=== PATIENT | male | born 1990 | race Caucasian/White ===

== ENCOUNTER 2016-03-26 17:23 | Emergency (ER) | payer OTHER ==
[2016-03-26 17:35] VITALS: TEMP 98.4
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
[2016-03-26 19:04] VITALS: BP 118/59; PULSE 79; RESP 16
--- NOTE | 2016-03-29 09:35 | CDI ---
Per documentation of applied ulnar gutter splint, could you specify whether short or long splint? Thank you Ilana GALVIN
--- NOTE | 2016-04-13 09:36 | CDI ---
First query signed but no addendum applied. Per documentation of applied ulnar gutter splint, could you specify whether short or long splint? Thank you Ilana GALVIN
== END 2016-03-26 19:04 | disposition home or self-care (01) ==
LOC: EC 17:23
DX: S61.211A Laceration without foreign body of left index finger without damage to nail, initial encounter (principal); S66.821A Laceration of other specified muscles, fascia and tendons at wrist and hand level, right hand, initial encounter; J45.909 Unspecified asthma, uncomplicated; F17.200 Nicotine dependence, unspecified, uncomplicated; W25.XXXA Contact with sharp glass, initial encounter; Z88.2 Allergy status to sulfonamides; Z79.51 Long term (current) use of inhaled steroids; Z86.14 Personal history of Methicillin resistant Staphylococcus aureus infection
CPT/HCPCS: 12002; 29125; 99283

== ENCOUNTER 2018-01-21 01:37 | Emergency (ER) | payer OTHER ==
[2018-01-21 01:45] VITALS: BP 125/82; PULSE 85; RESP 18; TEMP 97.6
[2018-01-21] MEDS ORDERED: ORPHENADRINE 30 MG/ML 2 ML VIAL IM STA (01:57)
[2018-01-21] MEDS ORDERED: KETOROLAC 60 MG/2 ML VIAL IM STA (01:57)
--- NOTE | 2018-01-21 02:01 | ED ---
Back Pain HPI - General Chief Complaint: Back Pain/Injury Stated Complaint: Back and leg pain Time Seen by Provider: 01/21/18 01:47 Source: patient, RN notes reviewed Limitations: no limitations - History of Present Illness Initial Comments: This is a 27-year-old male presents emergency Department chief complaint low back pain. Patient states has been bothersome or last 3 days. It is worse with movement better at rest. Patient states she's had on-and-off back comes in the past he stems from falling on a branch when he was younger. Patient states she's had no bowel incontinence or bladder retention. Patient denies any saddle anesthesias or lower extremity paresthesias. He does have some pain that occasionally radiates down his legs he states primarily his left. Patient has no complaints of abdominal pain including nausea, vomiting, diarrhea constipation. Patient states he did take some Tylenol and use some icy hot which helped his symptoms. Patient denies any dysuria or hematuria. - Related Data Home Medications Medication Instructions Recorded Confirmed Albuterol Nebulized [Ventolin 2.5 mg INHALATION RT-Q6H PRN 03/26/16 03/26/16 Nebulized] Alfvqul-Jnoe-Zyxm [id number] 2 tab PO Q6HR PRN 03/26/16 03/26/16 [Excedrin] Budesonide-Formot 160-4.5 Mcg 2 puff INHALATION RT-BID 03/26/16 03/26/16 [Symbicort 160-4.5 Mcg Inhaler] Cholecalciferol [Vitamin D3] 1,000 unit PO DAILY 03/26/16 03/26/16 Ibuprofen [Advil] 200 mg PO Q8HR PRN 03/26/16 03/26/16 Previous Rx's Medication Instructions Recorded Cephalexin [Keflex] 500 mg PO Q6HR #40 cap 03/26/16 Cyclobenzaprine [Flexeril] 10 mg PO TID PRN #15 tab 01/21/18 Ibuprofen [Motrin] 600 mg PO Q8HR PRN #30 tab 01/21/18 Allergies Allergy/AdvReac Type Severity Reaction Status Date / Time Sulfa (Sulfonamide Allergy Swelling Verified 01/21/18 01:45 Antibiotics) sulfamethoxazole Allergy Swelling Verified 01/21/18 01:45 [From Bactrim] trimethoprim [From Bactrim] Allergy Swelling Verified 01/21/18 01:45 Review of Systems ROS Statement: Those systems with pertinent positive or pertinent negative responses have been documented in the HPI. ROS Other: All systems not noted in ROS Statement are negative. Past Medical History Past Medical History: Asthma Additional Past Medical History / Comment(s): PTSD, chronic migraines History of Any Multi-Drug Resistant Organisms: MRSA Date of last positivie culture/infection: 2005 MDRO Source:: leg Additional Past Surgical History / Comment(s): forehead reconstruction for head lac as child Past Psychological History: Bipolar, Schizoaffective Disorder Smoking Status: Former smoker Past Alcohol Use History: None Reported Past Drug Use History: None Reported General Exam Limitations: no limitations General appearance: alert, in no apparent distress Head exam: Present: atraumatic, normocephalic, normal inspection Respiratory exam: Present: normal lung sounds bilaterally. Absent: respiratory distress, wheezes, rales, rhonchi, stridor Cardiovascular Exam: Present: regular rate, normal rhythm, normal heart sounds. Absent: systolic murmur, diastolic murmur, rubs, gallop, clicks GI/Abdominal exam: Present: soft, normal bowel sounds. Absent: distended, tenderness, guarding, rebound, rigid Extremities exam: Present: other (Lower extremity strength equal bilaterally, neurovascular intact equal color equal warmth) Back exam: Present: normal inspection, full ROM (Minimal discomfort with range of motion), tenderness (Lower lumbar left), muscle spasm, paraspinal tenderness , other (Pain with left Leg raise). Absent: vertebral tenderness Neurological exam: Present: alert, oriented X3, CN II-XII intact, reflexes normal. Absent: motor sensory deficit Skin exam: Present: warm, dry, intact, normal color. Absent: rash Course Vital Signs 01/21/18 01:41 Temperature 97.6 F Pulse Rate 85 Respiratory 18 Rate Blood Pressure 125/82 O2 Sat by Pulse 99 Oximetry Medical Decision Making - Medical Decision Making 27-year-old male presented for low back pain. Patient has had a history of back pain which she's been similar. Patient did have relief with over-the- counter medications. He does have some notable paraspinal muscular tenderness. Patient has no red flag symptoms patient will be treated conservatively with anti-inflammatories, muscle relaxers daily stretching.. Patient will follow-up with PCP for possible physical therapy if no improvement. Disposition Clinical Impression: Strain of lumbar region, Lumbar radiculopathy Disposition: HOME SELF-CARE Condition: Stable Instructions: Acute Low Back Pain (ED) Additional Instructions: Please return to the Emergency Department if symptoms worsen or any other concerns. Prescriptions: Cyclobenzaprine [Flexeril] 10 mg PO TID PRN #15 tab PRN Reason: Muscle Spasm Ibuprofen [Motrin] 600 mg PO Q8HR PRN #30 tab PRN Reason: Pain Is patient prescribed a controlled substance at d/c from ED?: No Referrals: Joanna Jones MD [Primary Care Provider] - 1-2 days Time of Disposition: 02:00
== END 2018-01-21 02:27 | disposition home or self-care (01) ==
LOC: EC 01:37
DX: S39.012A Strain of muscle, fascia and tendon of lower back, initial encounter (principal); M54.16 Radiculopathy, lumbar region; J45.909 Unspecified asthma, uncomplicated; Z87.891 Personal history of nicotine dependence; Z88.2 Allergy status to sulfonamides; Z79.51 Long term (current) use of inhaled steroids; Z79.899 Other long term (current) drug therapy; Z86.14 Personal history of Methicillin resistant Staphylococcus aureus infection; X58.XXXA Exposure to other specified factors, initial encounter
CPT/HCPCS: 99283; 96372 ×2; J2360; J1885

== ENCOUNTER 2018-01-28 17:45 | Emergency (ER) | payer OTHER ==
[2018-01-28] MEDS ORDERED: KETOROLAC 30 MG/ML 1 ML VIAL IM STA (18:27)
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
[2018-01-28 20:04] VITALS: PULSE 85
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
[2018-01-28 21:37] VITALS: BP 138/84; RESP 15; TEMP 98.2
== END 2018-01-28 21:57 | disposition home or self-care (01) ==
LOC: EC 17:45
DX: S16.1XXA Strain of muscle, fascia and tendon at neck level, initial encounter (principal); S39.012A Strain of muscle, fascia and tendon of lower back, initial encounter; R42 Dizziness and giddiness; J45.909 Unspecified asthma, uncomplicated; F25.9 Schizoaffective disorder, unspecified; F43.10 Post-traumatic stress disorder, unspecified; F31.9 Bipolar disorder, unspecified; Z87.891 Personal history of nicotine dependence; Z79.51 Long term (current) use of inhaled steroids; Z79.899 Other long term (current) drug therapy; Z88.2 Allergy status to sulfonamides; V43.52XA Car driver injured in collision with other type car in traffic accident, initial encounter; Y92.410 Unspecified street and highway as the place of occurrence of the external cause
CPT/HCPCS: 72072; 72050; 72110; 72125; 99284; 96372; J1885

== ENCOUNTER 2018-02-03 11:41 | Emergency (ER) | payer OTHER ==
[2018-02-03 11:50] VITALS: BP 110/71; PULSE 89; RESP 18
--- NOTE | 2018-02-03 12:08 | XR ---
EXAMINATION TYPE: XR chest 2V DATE OF EXAM: 02/03/2018 COMPARISON: NONE HISTORY: Cough and congestion for 3 days TECHNIQUE: Frontal and lateral views of the chest are obtained. FINDINGS: There is no focal air space opacity, pleural effusion, or pneumothorax seen. The cardiac silhouette size is within normal limits. The osseous structures are intact. IMPRESSION: No acute cardiopulmonary process.
--- NOTE | 2018-02-03 12:10 | ED ---
General Adult HPI - General Chief complaint: Upper Respiratory Infection Stated complaint: Chest congestion Time Seen by Provider: 02/03/18 11:52 Source: patient, RN notes reviewed Mode of arrival: ambulatory Limitations: no limitations - History of Present Illness Initial comments: Patient 27-year-old male presents to the emergency room today with chief complaint of cough congestion over the last 2 days. Patient does admit that the cough has been dry. He does admit that he's had some sinus congestion. Patient does admit to a sore throat. States hurts when he swallows. He denies any other complaints at this time. - Related Data Home Medications Medication Instructions Recorded Confirmed Budesonide-Formot 160-4.5 Mcg 2 puff INHALATION RT-BID 03/26/16 02/03/18 [Symbicort 160-4.5 Mcg Inhaler] Cholecalciferol [Vitamin D3] 1,000 unit PO DAILY 03/26/16 02/03/18 ARIPiprazole [Abilify] 10 mg PO HS 01/28/18 02/03/18 Albuterol Inhaler [Ventolin Hfa 2 puff INHALATION RT-Q6H PRN 01/28/18 02/03/18 Inhaler] Loratadine [Claritin] 10 mg PO DAILY PRN 01/28/18 02/03/18 Montelukast [Singulair] 10 mg PO HS 01/28/18 02/03/18 Previous Rx's Medication Instructions Recorded Fluticasone Propionate [Flonase 1 - 2 spray EA NOSTRIL DAILY 5 02/03/18 Allergy Relief] Days ml guaiFENesin 400 mg PO Q4-6H #30 tablet 02/03/18 Allergies Allergy/AdvReac Type Severity Reaction Status Date / Time Sulfa (Sulfonamide Allergy Swelling Verified 02/03/18 12:04 Antibiotics) sulfamethoxazole Allergy Swelling Verified 02/03/18 12:04 [From Bactrim] trimethoprim [From Bactrim] Allergy Swelling Verified 02/03/18 12:04 Review of Systems ROS Statement: Those systems with pertinent positive or pertinent negative responses have been documented in the HPI. ROS Other: All systems not noted in ROS Statement are negative. Past Medical History Past Medical History: Asthma Additional Past Medical History / Comment(s): PTSD, chronic migraines History of Any Multi-Drug Resistant Organisms: MRSA Date of last positivie culture/infection: 2005 MDRO Source:: leg Additional Past Surgical History / Comment(s): forehead reconstruction for head lac as child Past Psychological History: Bipolar, Schizoaffective Disorder Smoking Status: Former smoker Past Alcohol Use History: None Reported Past Drug Use History: None Reported General Exam - General Exam Comments Initial Comments: General: The patient is awake and alert, in no distress, and does not appear acutely ill. Eye: There is normal conjunctiva bilaterally. No signs of icterus. Ears, nose, mouth and throat: There are moist mucous membranes and no oral lesions. Neck: The neck is supple, there is no tenderness or JVD. Cardiovascular: There is a regular rate and rhythm. No murmur, rub or gallop is appreciated. Respiratory: Lungs are clear to auscultation, respirations are non-labored, breath sounds are equal. No wheezes, stridor, rales, or rhonchi. Musculoskeletal: Normal ROM, no tenderness. Strength 5/5. Sensation intact. Pulses equal bilaterally 2+. Neurological: A&O x 3. CN II-XII intact, There are no obvious motor or sensory deficits. Coordination appears grossly intact. Speech is normal. Skin: Skin is warm and dry and no rashes or lesions are noted. Psychiatric: Cooperative, appropriate mood & affect, normal judgment. Limitations: no limitations Course Vital Signs 02/03/18 11:47 Temperature 98.6 F Pulse Rate 89 Respiratory 18 Rate Blood Pressure 110/71 O2 Sat by Pulse 95 Oximetry Medical Decision Making - Medical Decision Making Chest x-ray reviewed negative for any acute abnormality. Results were discussed with the patient. Patient will be treated for upper respiratory infection started on Flonase for nasal congestion along with guaifenesin for his cough. Patient advised follow-up family doctor over the next 2 days return here if symptoms increase or worsen or for any other concerns. Disposition Clinical Impression: Upper respiratory infection Disposition: HOME SELF-CARE Condition: Good Instructions: Upper Respiratory Infection (ED) Additional Instructions: Please use medication as discussed. Please follow-up with family doctor in the next 2 days of symptoms have not improved. Please return to emergency room if the symptoms increase or worsen or for any other concerns. Prescriptions: Fluticasone Propionate [Flonase Allergy Relief] 1 - 2 spray EA NOSTRIL DAILY 5 Days ml guaiFENesin 400 mg PO Q4-6H #30 tablet Is patient prescribed a controlled substance at d/c from ED?: No Referrals: Joanna Jones MD [Primary Care Provider] - 1-2 days Time of Disposition: 13:11
[2018-02-03 13:45] VITALS: TEMP 98.5
== END 2018-02-03 13:45 | disposition home or self-care (01) ==
LOC: EC 11:41
DX: J06.9 Acute upper respiratory infection, unspecified (principal); J45.909 Unspecified asthma, uncomplicated; F25.9 Schizoaffective disorder, unspecified; F31.9 Bipolar disorder, unspecified; Z86.14 Personal history of Methicillin resistant Staphylococcus aureus infection; Z87.891 Personal history of nicotine dependence; Z79.51 Long term (current) use of inhaled steroids; Z79.899 Other long term (current) drug therapy; Z88.2 Allergy status to sulfonamides
CPT/HCPCS: 71046; 99283

== ENCOUNTER → 2018-02-03 | Outpatient (CLI) | payer OTHER ==
--- NOTE | 2018-02-03 11:59 | US ---
EXAMINATION TYPE: US liver DATE OF EXAM: 02/03/2018 COMPARISON: NONE CLINICAL HISTORY: R94.5 elevated liver test. larger habitus EXAM MEASUREMENTS: Liver Length: 21.8 cm Gallbladder Wall: 0.1 cm CBD: 0.5 cm Right Kidney: 12.5 x 4.0 x 6.2 cm Pancreas: tail gassed out, visualized portion wnl Liver: hepatomegaly, attenuating, coarse echopattern, probable sparing around gb Gallbladder: wnl Evidence for sonographic Ewing's sign: no CBD: wnl Right Kidney: wnl IMPRESSION: Findings suggesting moderate degree hepatic steatosis with probable focal fatty sparing a round the gallbladder fossa. No sonographic evidence of cholelithiasis or acute cholecystitis.
== END ==
LOC: RADUSWWP 11:20
PROVIDERS: ATTEND Internal Medicine
DX: R94.5 Abnormal results of liver function studies (principal); Z88.2 Allergy status to sulfonamides; Z88.8 Allergy status to other drugs, medicaments and biological substances
CPT/HCPCS: 76705

== ENCOUNTER 2018-02-13 18:11 | Emergency (ER) | payer OTHER ==
--- NOTE | 2018-02-13 19:30 | ED ---
General Adult HPI - General Chief complaint: Extremity Injury, Lower Stated complaint: RT FOOT INJURY Source: patient, RN notes reviewed, old records reviewed Mode of arrival: ambulatory Limitations: no limitations - History of Present Illness Initial comments: 19-year-old male patient sent to ED after sustaining an injury to his right foot yesterday. Patient states that he was carrying a box ED when slipped, landed on his foot. Patient is still ambulatory, has some pain in the lateral aspect of his foot with ambulation. Patient denies any other injury sustained. Patient presents today to make sure he does not have any acute fracture. Patient denies numbness/paresthesias. Systemic: Pt denies fatigue, myalgia, fever/chills, rash. Pt denies weakness, night sweats, weight loss. Neuro: Pt denies headache, visual disturbances, syncope or pre-syncope. HEENT: Pt denies ocular discharge or irritation, otalgia, rhinorrhea, pharyngitis or notable lymphadenopathy. Cardiopulmonary: Pt denies chest pain, SOB, heart palpitations, dyspnea on exertion. Abdominal/GI: Pt denies abdominal pain, n/v/d. : Pt denies dysuria, burning w/ urination, frequency/urgency. Denies new onset urinary or bowel incontinence. MSK: Pt denies myalgia, loss of strength or function in extremities. Neuro: Pt denies new onset weakness, paresthesias. - Related Data Home Medications Medication Instructions Recorded Confirmed Budesonide-Formot 160-4.5 Mcg 2 puff INHALATION RT-BID 03/26/16 02/03/18 [Symbicort 160-4.5 Mcg Inhaler] Cholecalciferol [Vitamin D3] 1,000 unit PO DAILY 03/26/16 02/03/18 ARIPiprazole [Abilify] 10 mg PO HS 01/28/18 02/03/18 Albuterol Inhaler [Ventolin Hfa 2 puff INHALATION RT-Q6H PRN 01/28/18 02/03/18 Inhaler] Loratadine [Claritin] 10 mg PO DAILY PRN 01/28/18 02/03/18 Montelukast [Singulair] 10 mg PO HS 01/28/18 02/03/18 Previous Rx's Medication Instructions Recorded Fluticasone Propionate [Flonase 1 - 2 spray EA NOSTRIL DAILY 5 02/03/18 Allergy Relief] Days ml guaiFENesin 400 mg PO Q4-6H #30 tablet 02/03/18 Ibuprofen [Motrin] 600 mg PO Q6HR PRN #40 day 02/13/18 Allergies Allergy/AdvReac Type Severity Reaction Status Date / Time Sulfa (Sulfonamide Allergy Swelling Verified 02/13/18 18:16 Antibiotics) sulfamethoxazole Allergy Swelling Verified 02/13/18 18:16 [From Bactrim] trimethoprim [From Bactrim] Allergy Swelling Verified 02/13/18 18:16 Review of Systems ROS Statement: Those systems with pertinent positive or pertinent negative responses have been documented in the HPI. ROS Other: All systems not noted in ROS Statement are negative. Past Medical History Past Medical History: Asthma Additional Past Medical History / Comment(s): PTSD, chronic migraines History of Any Multi-Drug Resistant Organisms: MRSA Date of last positivie culture/infection: 2005 MDRO Source:: leg Additional Past Surgical History / Comment(s): forehead reconstruction for head lac as child Past Psychological History: Bipolar, Schizoaffective Disorder Smoking Status: Former smoker Past Alcohol Use History: None Reported Past Drug Use History: None Reported General Exam - General Exam Comments Initial Comments: Constitutional: NAD, AOX3, Pt has pleasant affect. HEENT: NC/AT, trachea midline, neck supple, no lymphadenopathy. Posterior pharynx non erythematous, without exudates. External ears appear normal, without discharge. Mucous membranes moist. Eyes PERRLA, EOM intact. There is no scleral icterus. No pallor noted. Cardiopulmonary: RRR, no murmurs, rubs or gallops, no JVD noted. Lungs CTAB in anterior and posterior [place]. No peripheral edema. Abdominal exam: Abdomen soft and non-distended. Abdomen non-tender to palpation in all 4 quadrants. Bowel sounds active in LLQ. No hepatosplenomegaly. Neuro: CN II-XII grossly intact. No nuchal rigidity. MSK: No posterior calf tenderness bilaterally, homans sign negative bilaterally. Posterior tibialis and radial pulse +2 bilaterally. Moderate tenderness palpation at lateral aspect of right midfoot. Plantar and dorsi flexion intact. Neurovascularly intact. Capillary refill less than 2 seconds on all nailbeds. She laboratory. Limitations: no limitations Course Vital Signs 02/13/18 18:14 Temperature 98.2 F Pulse Rate 85 Respiratory 16 Rate Blood Pressure 133/90 O2 Sat by Pulse 97 Oximetry Medical Decision Making - Medical Decision Making 19-year-old male patient presents to ED after sustaining was physical injury to his right foot. Patient after he got his foot. Patient ambulatory. Physical exam displayed no ecchymoses, mild tenderness to palpation right foot. Plain films of right foot ankle didn't display any acute osseous abnormality, acute process. Patient diagnosis contusion. Patient discharged with postop walking boot. Patient developed PCP in 1-2 days. She may use NSAIDs as needed for pain. Patient given or the referral to call pain last more than 10 days. Patient to return to ED if any new signs or symptoms develop including inability ambulate, erythema, discharge, weakness, any other new symptoms. Case discussed with Dr. Covarrubias. Disposition Clinical Impression: Contusion of foot Disposition: HOME SELF-CARE Condition: Good Instructions: Foot Contusion (ED) Additional Instructions: Patient to adhere to previously discussed treatment plan and will take medication(s) as directed. Patient to follow up with PCP in 1-2 days. Patient to return to ED if symptoms do not improve. Prescriptions: Ibuprofen [Motrin] 600 mg PO Q6HR PRN #40 day PRN Reason: Pain Is patient prescribed a controlled substance at d/c from ED?: No Referrals: Joanna Jones MD [Primary Care Provider] - 1-2 days Reji Pope MD [Medical Doctor] - 1-2 days Time of Disposition: 20:12
--- NOTE | 2018-02-13 19:38 | XR ---
PROCEDURE: XR ankle complete RT - 3V DATE AND TIME: 02/13/2018 6:47 PM CLINICAL INDICATION: PHH; Pain TECHNIQUE: Department protocol COMPARISON: None FINDINGS: There is no fracture or malalignment. The soft tissues are unremarkable. IMPRESSION: NO ACUTE PROCESS.
--- NOTE | 2018-02-13 19:40 | XR ---
PROCEDURE: XR foot complete RT - 3V DATE AND TIME: 02/13/2018 6:48 PM CLINICAL INDICATION: PHH; Pain TECHNIQUE: Department protocol COMPARISON: None FINDINGS: There is no fracture or malalignment. The soft tissues are unremarkable. IMPRESSION: NO ACUTE PROCESS.
[2018-02-13 20:22] VITALS: BP 143/82; PULSE 82; RESP 18; TEMP 98
== END 2018-02-13 20:22 | disposition home or self-care (01) ==
LOC: EC 18:11
DX: S90.31XA Contusion of right foot, initial encounter (principal); J45.909 Unspecified asthma, uncomplicated; F25.9 Schizoaffective disorder, unspecified; F31.9 Bipolar disorder, unspecified; F43.10 Post-traumatic stress disorder, unspecified; Z86.14 Personal history of Methicillin resistant Staphylococcus aureus infection; Z87.891 Personal history of nicotine dependence; Z79.51 Long term (current) use of inhaled steroids; Z79.899 Other long term (current) drug therapy; Z88.2 Allergy status to sulfonamides; W20.8XXA Other cause of strike by thrown, projected or falling object, initial encounter
CPT/HCPCS: 99284

== ENCOUNTER 2018-02-20 02:28 | Emergency (ER) | payer OTHER ==
[2018-02-20] MEDS ORDERED: IPRATROPIUM-ALBUTEROL 3 ML NEB INHALATION STA (02:59)
--- NOTE | 2018-02-20 02:59 | ED ---
URI HPI - General Chief Complaint: Upper Respiratory Infection Stated Complaint: CONSTANZA Time Seen by Provider: 02/20/18 02:59 Source: patient Mode of arrival: wheelchair Limitations: no limitations - History of Present Illness Initial Comments: Arturo is a 28-year-old male with a history of asthma and a former cigarette smoker presents the emergency department today for evaluation of persistent cough for 2 weeks duration. Patient was seen by his primary care physician and prescribed an antibiotic which he reports he took with no improvement. Patient reports he continues to feel wheezing and coughing. He reports that he used his albuterol inhaler one time today. Patient reports he previously had albuterol nebulizer at home however he has lost the machine and has no albuterol. The patient denies any additional complaints. - Related Data Home Medications Medication Instructions Recorded Confirmed Budesonide-Formot 160-4.5 Mcg 2 puff INHALATION RT-BID 03/26/16 02/20/18 [Symbicort 160-4.5 Mcg Inhaler] Cholecalciferol [Vitamin D3] 1,000 unit PO DAILY 03/26/16 02/20/18 ARIPiprazole [Abilify] 10 mg PO HS 01/28/18 02/20/18 Albuterol Inhaler [Ventolin Hfa 2 puff INHALATION RT-Q6H PRN 01/28/18 02/20/18 Inhaler] Loratadine [Claritin] 10 mg PO DAILY PRN 01/28/18 02/20/18 Montelukast [Singulair] 10 mg PO HS 01/28/18 02/20/18 Previous Rx's Medication Instructions Recorded guaiFENesin 400 mg PO Q4-6H #30 tablet 02/03/18 Ibuprofen [Motrin] 600 mg PO Q6HR PRN #40 day 02/13/18 Allergies Allergy/AdvReac Type Severity Reaction Status Date / Time Sulfa (Sulfonamide Allergy Swelling Verified 02/20/18 02:39 Antibiotics) sulfamethoxazole Allergy Swelling Verified 02/20/18 02:39 [From Bactrim] trimethoprim [From Bactrim] Allergy Swelling Verified 02/20/18 02:39 Review of Systems ROS Statement: Those systems with pertinent positive or pertinent negative responses have been documented in the HPI. ROS Other: All systems not noted in ROS Statement are negative. Past Medical History Past Medical History: Asthma Additional Past Medical History / Comment(s): PTSD, chronic migraines History of Any Multi-Drug Resistant Organisms: MRSA Date of last positivie culture/infection: 2005 MDRO Source:: leg Additional Past Surgical History / Comment(s): forehead reconstruction for head lac as child Past Psychological History: Bipolar, Schizoaffective Disorder Smoking Status: Former smoker Past Alcohol Use History: Occasional Past Drug Use History: None Reported General Exam - General Exam Comments Initial Comments: Physical Exam GENERAL: Patient is well-developed and well-nourished. Patient is nontoxic and well- hydrated and is in no distress. HENT: Normocephalic, Atraumatic. EYES: PERRL, EOMI PULMONARY: Coarse wheezing, nonproductive cough CARDIOVASCULAR: There is a regular rate and rhythm without any murmurs gallops or rubs. ABDOMEN: Soft and nontender with normal bowel sounds. SKIN: Skin is clear with no lesions or rashes and otherwise unremarkable. : Deferred NEUROLOGIC: Patient is alert and oriented x3. Moving all extremities spontaneously MUSCULOSKELETAL: Normal extremities with adequate strength and full range of motion. No lower extremity swelling or edema. No calf tenderness. PSYCHIATRIC: Normal psychiatric evaluation. Limitations: no limitations Limitations: no limitations Course Vital Signs 02/20/18 02/20/18 02/20/18 02:35 03:17 03:23 Temperature 97.4 F L Pulse Rate 100 100 Respiratory 20 17 Rate Blood Pressure 129/83 O2 Sat by Pulse 98 Oximetry 02/20/18 03:29 Temperature Pulse Rate 104 H Respiratory Rate Blood Pressure O2 Sat by Pulse Oximetry Medical Decision Making - Medical Decision Making The patient was seen and evaluated, patient had a hoarse cough, mild expiratory wheezing DuoNeb and chest x-ray were ordered Patient's wheezing resolved with DuoNeb, patient reports feeling much better Chest x-ray no acute findings I discussed with the patient the need to follow up with his primary care physician for new prescription for nebulizer, patient states he intends to call his primary care physician in the morning for follow-up visit. In addition the patient has only been using his inhaler 1-2 times daily, advised him he can use it every 4 hours as needed for wheezing. Return parameters were discussed. All questions pertaining care were answered patient was discharged home in stable condition. Disposition Clinical Impression: Upper respiratory infection Disposition: HOME SELF-CARE Condition: Good Instructions: Upper Respiratory Infection (ED) Additional Instructions: Follow-up with Dr. Bettencourt tomorrow, discuss the need for a prescription for a nebulizer and nebulized albuterol at home Use your inhaler every 4 hours as needed for coughing Is patient prescribed a controlled substance at d/c from ED?: No Referrals: Joanna Jones MD [Primary Care Provider] - 1-2 days Time of Disposition: 03:41
--- NOTE | 2018-02-20 03:23 | XR ---
EXAMINATION TYPE: XR chest 2V DATE OF EXAM: 02/20/2018 COMPARISON: 02/03/2018 HISTORY: Chest pain TECHNIQUE: Frontal and lateral views of the chest are obtained. FINDINGS: Heart and mediastinum are normal. Lungs are clear. Diaphragm is normal. Bony thorax appear s normal. IMPRESSION: Normal chest. No change.
[2018-02-20 03:57] VITALS: BP 122/78; PULSE 95; RESP 18; TEMP 98.2
== END 2018-02-20 04:01 | disposition home or self-care (01) ==
LOC: EC 02:28
DX: J06.9 Acute upper respiratory infection, unspecified (principal); J45.909 Unspecified asthma, uncomplicated; F25.0 Schizoaffective disorder, bipolar type; Z86.14 Personal history of Methicillin resistant Staphylococcus aureus infection; Z87.891 Personal history of nicotine dependence; Z79.51 Long term (current) use of inhaled steroids; Z79.899 Other long term (current) drug therapy; Z88.2 Allergy status to sulfonamides
CPT/HCPCS: 71046; 94640; 99285

== ENCOUNTER 2018-03-03 01:52 | Emergency (ER) | payer OTHER ==
--- NOTE | 2018-03-03 03:14 | ED ---
Lower Extremity Injury HPI - General Chief Complaint: Extremity Injury, Lower Stated Complaint: Car fell on him Time Seen by Provider: 03/03/18 02:54 Source: patient Mode of arrival: ambulatory Limitations: no limitations - History of Present Illness Initial Comments: This patient is 28-year-old man who presents to be evaluated after he had a right knee injury tonight. Patient states that he working on his car, and then it slipped from the [place] and in the process of falling to the ground struck his right patella. The patient is able to bear weight on his leg, but states that if he attempts to bend there is pain. He denies weakness or numbness of the extremity. The patient also states that when he attempted to turn the wheel of his car he feels like he pulled something in his left shoulder. He specifically has pain when he attempts internal rotation. MD Complaint: knee injury -: hour(s) Injury: Knee: Right Type of Injury: blunt Place: home Severity: moderate Improves With: nothing Worsens With: movement Context: direct blow Associated Symptoms: able to partially bear weight - Related Data Home Medications Medication Instructions Recorded Confirmed Budesonide-Formot 160-4.5 Mcg 2 puff INHALATION RT-BID 03/26/16 02/20/18 [Symbicort 160-4.5 Mcg Inhaler] Cholecalciferol [Vitamin D3] 1,000 unit PO DAILY 03/26/16 02/20/18 ARIPiprazole [Abilify] 10 mg PO HS 01/28/18 02/20/18 Albuterol Inhaler [Ventolin Hfa 2 puff INHALATION RT-Q6H PRN 01/28/18 02/20/18 Inhaler] Loratadine [Claritin] 10 mg PO DAILY PRN 01/28/18 02/20/18 Montelukast [Singulair] 10 mg PO HS 01/28/18 02/20/18 Previous Rx's Medication Instructions Recorded guaiFENesin 400 mg PO Q4-6H #30 tablet 02/03/18 Ibuprofen [Motrin] 600 mg PO Q6HR PRN #40 day 02/13/18 Ibuprofen 800 mg PO TID #20 tablet 03/03/18 Allergies Allergy/AdvReac Type Severity Reaction Status Date / Time Sulfa (Sulfonamide Allergy Swelling Verified 03/03/18 01:57 Antibiotics) sulfamethoxazole Allergy Swelling Verified 03/03/18 01:57 [From Bactrim] trimethoprim [From Bactrim] Allergy Swelling Verified 03/03/18 01:57 Review of Systems ROS Statement: Those systems with pertinent positive or pertinent negative responses have been documented in the HPI. ROS Other: All systems not noted in ROS Statement are negative. Respiratory: Denies: dyspnea Cardiovascular: Denies: chest pain Gastrointestinal: Denies: abdominal pain, vomiting Musculoskeletal: Reports: as per HPI, joint swelling, arthralgia. Denies: back pain Neurological: Denies: weakness, numbness, paresthesias Past Medical History Past Medical History: Asthma Additional Past Medical History / Comment(s): PTSD, chronic migraines History of Any Multi-Drug Resistant Organisms: MRSA Date of last positivie culture/infection: 2005 MDRO Source:: leg Additional Past Surgical History / Comment(s): forehead reconstruction for head lac as child Past Psychological History: Bipolar, Schizoaffective Disorder Smoking Status: Former smoker Past Alcohol Use History: Occasional Past Drug Use History: None Reported General Exam Limitations: no limitations General appearance: alert, in no apparent distress Extremities exam: Present: full ROM, tenderness (Anterior of the right patella) , normal capillary refill. Absent: pedal edema, joint swelling, calf tenderness Neurological exam: Absent: motor sensory deficit Skin exam: Present: warm, dry, intact, normal color. Absent: rash Course Vital Signs 03/03/18 01:54 Temperature 98.2 F Pulse Rate 99 Respiratory 16 Rate Blood Pressure 127/81 O2 Sat by Pulse 97 Oximetry Disposition Clinical Impression: Shoulder strain, Knee injury Disposition: HOME SELF-CARE Condition: Good Instructions: Knee Pain (ED), Rotator Cuff Injury (ED) Prescriptions: Ibuprofen 800 mg PO TID #20 tablet Is patient prescribed a controlled substance at d/c from ED?: No Referrals: Joanna Jones MD [Primary Care Provider] - 1-2 days Reji Pope MD [Medical Doctor] - 1-2 days
--- NOTE | 2018-03-03 03:29 | XR ---
EXAMINATION TYPE: XR knee complete RT DATE OF EXAM: 03/03/2018 COMPARISON: NONE HISTORY: Knee pain TECHNIQUE: 3 views FINDINGS: I see no fracture nor dislocation. Joint spaces are normal. There is no sign of knee joint effusion. IMPRESSION: Negative right knee exam.
[2018-03-03] MEDS ORDERED: traMADol 50 MG STARTER PACK 3 TAB BTL PO STA (03:59)
[2018-03-03] MEDS ORDERED: IBUPROFEN 400 MG TAB PO STA (03:59)
[2018-03-03 04:10] VITALS: BP 133/75; PULSE 77; RESP 18; TEMP 98
== END 2018-03-03 04:09 | disposition home or self-care (01) ==
LOC: EC 01:52
DX: S89.91XA Unspecified injury of right lower leg, initial encounter (principal); S46.912A Strain of unspecified muscle, fascia and tendon at shoulder and upper arm level, left arm, initial encounter; J45.909 Unspecified asthma, uncomplicated; F43.10 Post-traumatic stress disorder, unspecified; F25.0 Schizoaffective disorder, bipolar type; Z86.14 Personal history of Methicillin resistant Staphylococcus aureus infection; Z87.891 Personal history of nicotine dependence; Z79.51 Long term (current) use of inhaled steroids; Z79.899 Other long term (current) drug therapy; Z88.2 Allergy status to sulfonamides; W22.8XXA Striking against or struck by other objects, initial encounter; Y93.89 Activity, other specified; Y92.009 Unspecified place in unspecified non-institutional (private) residence as the place of occurrence of the external cause
CPT/HCPCS: 73562; 99283; L1830

== ENCOUNTER 2018-05-02 02:02 | Emergency (ER) | payer OTHER ==
[2018-05-02 02:09] VITALS: TEMP 97.7
[2018-05-02] MEDS ORDERED: HYDROcodone/APAP 7.5-325MG 1 EACH TAB PO ONE (02:27)
--- NOTE | 2018-05-02 02:42 | XR ---
EXAM: XR Chest, 2 Views CLINICAL HISTORY: Pain TECHNIQUE: Frontal and lateral views of the chest. COMPARISON: 02/20/2018 FINDINGS: Lungs: Unremarkable. No consolidation. Pleural space: Unremarkable. No pneumothorax. Heart: Unremarkable. No cardiomegaly. Mediastinum: Unremarkable. Bones/joints: No acute osseous abnormality. IMPRESSION: No acute cardiopulmonary process.
--- NOTE | 2018-05-02 02:46 | XR ---
EXAM: XR Left Shoulder Complete, 2 or More Views CLINICAL HISTORY: Pain TECHNIQUE: Two or more views of the left shoulder. COMPARISON: No relevant prior studies available. FINDINGS: Bones/joints: No acute fracture or dislocation. Soft tissues: Unremarkable. IMPRESSION: No acute fracture or dislocation.
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
[2018-05-02 03:50] VITALS: BP 120/83; PULSE 86; RESP 20
== END 2018-05-02 03:45 | disposition home or self-care (01) ==
LOC: EC 02:02
DX: S43.402A Unspecified sprain of left shoulder joint, initial encounter (principal); J45.909 Unspecified asthma, uncomplicated; F31.9 Bipolar disorder, unspecified; F43.10 Post-traumatic stress disorder, unspecified; F25.9 Schizoaffective disorder, unspecified; Z86.14 Personal history of Methicillin resistant Staphylococcus aureus infection; Z87.891 Personal history of nicotine dependence; Z79.51 Long term (current) use of inhaled steroids; Z79.899 Other long term (current) drug therapy; Z88.2 Allergy status to sulfonamides; Z88.1 Allergy status to other antibiotic agents; V19.9XXA Pedal cyclist (driver) (passenger) injured in unspecified traffic accident, initial encounter; Y93.55 Activity, bike riding; Y92.410 Unspecified street and highway as the place of occurrence of the external cause
CPT/HCPCS: 71046; 99284

== ENCOUNTER 2018-06-04 12:48 | Emergency (ER) | payer OTHER ==
[2018-06-04] MEDS ORDERED: TOPICAL SKIN ADHESIVE 1 EACH AMP TOPICAL ONE (13:35)
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
[2018-06-04 15:07] VITALS: BP 118/68; PULSE 78; RESP 18; TEMP 97.7
== END 2018-06-04 14:30 | disposition home or self-care (01) ==
LOC: EC 12:48
DX: S61.011A Laceration without foreign body of right thumb without damage to nail, initial encounter (principal); J45.909 Unspecified asthma, uncomplicated; F31.9 Bipolar disorder, unspecified; F25.9 Schizoaffective disorder, unspecified; F43.10 Post-traumatic stress disorder, unspecified; Z86.14 Personal history of Methicillin resistant Staphylococcus aureus infection; Z87.891 Personal history of nicotine dependence; Z79.51 Long term (current) use of inhaled steroids; Z79.899 Other long term (current) drug therapy; Z88.1 Allergy status to other antibiotic agents; Z88.2 Allergy status to sulfonamides; W26.0XXA Contact with knife, initial encounter
CPT/HCPCS: 12001; 99282

== ENCOUNTER 2018-06-16 01:44 | Emergency (ER) | payer OTHER ==
[2018-06-16 02:45] LABS: Appearance,Urine Clear (Clear); Bacteria,Urine Rare /hpf; Bilirubin,Urine Negative (Negative); Blood,Urine Moderate (Negative); Color,Urine Light Yellow; Glucose,Urine (UA) Negative (Negative); Ketones,Urine Negative (Negative); Leukocyte Esterase,Urine Moderate (Negative); Mucus,Urine Rare /hpf; Nitrite,Urine Negative (Negative); Protein,Urine Negative (Negative); RBC,Urine 57 /hpf (0-5); Squamous Epithelial Cell,Urine <1 /hpf (0-4); Urobilinogen,Urine <2.0 mg/dL (<2.0); WBC,Urine 24 /hpf (0-5)
[2018-06-16] MEDS ORDERED: CEPHALEXIN 500MG STARTER PACK 4 CAP BTL PO STA (02:50)
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
[2018-06-16 03:20] VITALS: BP 136/80; PULSE 88; RESP 18; TEMP 98
[2018-06-17 15:07] LABS: C. trachomatis,PCR Negative (Neg,Equiv); Chlamydia trachomatis Source Urine
[2018-06-17 15:19] LABS: N. gonorrhoeae,PCR Negative (Neg,Equiv); Neisseria Source Urine
== END 2018-06-16 03:20 | disposition home or self-care (01) ==
LOC: EC 01:44
DX: N39.0 Urinary tract infection, site not specified (principal); J45.909 Unspecified asthma, uncomplicated; F25.0 Schizoaffective disorder, bipolar type; Z79.51 Long term (current) use of inhaled steroids; Z79.899 Other long term (current) drug therapy; Z87.891 Personal history of nicotine dependence; Z88.1 Allergy status to other antibiotic agents; Z88.2 Allergy status to sulfonamides
CPT/HCPCS: 81001; 87086; 87491; 87591; 99283

== ENCOUNTER → 2018-06-24 | Outpatient (CLI) | payer OTHER ==
[2018-06-24 19:29] LABS: Albumin 4.8 g/dL (3.80-4.90); Albumin/Globulin Ratio 2.18 (1.60-3.17); Bilirubin, Conjugated 0.2 mg/dL (0.20-0.40); Bilirubin,Unconjugated 0.2 mg/dL; Globulin 2.2 g/dL (1.6-3.3); Total Bilirubin 0.4 mg/dL (0.2-1.2)
== END ==
LOC: LABWHC1 12:59
PROVIDERS: ATTEND Internal Medicine
DX: Z09 Encounter for follow-up examination after completed treatment for conditions other than malignant neoplasm (principal); Z86.39 Personal history of other endocrine, nutritional and metabolic disease
CPT/HCPCS: 36415; 80076; 82947

== ENCOUNTER → 2018-08-21 | Outpatient (CLI) | payer OTHER ==
--- NOTE | 2018-08-21 09:07 | US ---
EXAMINATION TYPE: US abdomen complete DATE OF EXAM: 08/21/2018 COMPARISON: 02/03/2018 CLINICAL HISTORY: R74.8 Abnormal levels of liver enzymes. EXAM MEASUREMENTS: Liver Length: 17.7 cm Gallbladder Wall: 0.2 cm CBD: 0.5 cm Spleen: 12.9 cm Right Kidney: 12.6 x 4.3 x 5.0 cm Left Kidney: 12.3 x 5.8 x 5.7 cm Patient of large body habitus, technically difficult and limited study. Pancreas: Obscured by bowel gas Liver: Increased attenuation, decreased visualization of vessels suggestive of fatty infiltrate, het erogeneous, upper limits of normal in size, some possible focal fatty sparing adjacent to gallbladder Gallbladder: wnl Evidence for sonographic Ewing's sign: CBD: very limited visualization Spleen: wnl Right Kidney: No hydronephrosis or masses seen Left Kidney: No hydronephrosis or masses seen Upper IVC: not well seen Abd Aorta: some portions obscured by overlying bowel gas otherwise wnl IMPRESSION: 1. Findings involving the liver demonstrating heterogeneous increased pattern which can be seen with hepatic steatosis or hepatitis.
== END | disposition home or self-care (01) ==
LOC: RADUSWWP 08:23
PROVIDERS: ATTEND Internal Medicine
DX: R74.8 Abnormal levels of other serum enzymes (principal)
CPT/HCPCS: 76700

== ENCOUNTER 2018-09-17 00:53 | Emergency (ER) | payer OTHER ==
[2018-09-17 01:16] VITALS: TEMP 98.6
[2018-09-17] MEDS ORDERED: SODIUM CHLORIDE 0.9% 500 ML 500 ML IV STA (02:08)
[2018-09-17 03:17] LABS: Basophils % (A) 1 %; Eosinophils # (A) 0.1 k/uL (0-0.7); Eosinophils % (A) 2 %; HCT 45.1 % (39.0-53.0); Lymphocytes % (A) 28 %; MCH 28.2 pg (25.0-35.0); MCHC 33.3 g/dL (31.0-37.0); MCV 84.7 fL (80.0-100.0); Mean Platelet Volume 7.5; Monocytes # (A) 0.6 k/uL (0-1.0); Monocytes % (A) 8 %; Neutrophils # (A) 4.2 k/uL (1.3-7.7); Neutrophils % (A) 59 %; Platelet Count 248 k/uL (150-450); RBC 5.32 m/uL (4.30-5.90); WBC 7.2 k/uL (3.8-10.6)
--- NOTE | 2018-09-17 03:21 | XR ---
EXAM: XR Chest, 2 Views CLINICAL HISTORY: ITS.REASON XR Reason: Chest Pain TECHNIQUE: Frontal and lateral views of the chest. COMPARISON: 05/02/18 FINDINGS: Lungs: No consolidation or mass. Pleural space: No effusion. Heart: No cardiomegaly. Mediastinum: Unremarkable. Bones/joints: No acute findings. IMPRESSION: No acute cardiopulmonary process.
[2018-09-17 03:28] LABS: ALT 66 U/L (21-72); AST 66 U/L (17-59); African American GFR (CKD) >90 (>60 ml/min/1.73 sqM); Albumin 5.1 g/dL (3.5-5.0); Alkaline Phosphatase 56 U/L (38-126); Anion Gap 13 mmol/L; Blood Urea Nitrogen 15 mg/dL (9-20); Calcium 9.6 mg/dL (8.4-10.2); Carbon Dioxide 20 mmol/L (22-30); Chloride 105 mmol/L (98-107); Glucose 100 mg/dL (74-99); Magnesium 2.1 mg/dL (1.6-2.3); Sodium 138 mmol/L (137-145); Total Protein 8.2 g/dL (6.3-8.2)
[2018-09-17 03:30] LABS: D-Dimer 0.32 mg/L FEU (<0.60); Partial Thromboplastin Time 24.6 sec (22.0-30.0); Prothrombin Time 10.4 sec (9.0-12.0)
--- NOTE | 2018-09-17 03:37 | ED ---
General Adult HPI - General Chief complaint: Chest Pain Stated complaint: Chest Pain Time Seen by Provider: 09/17/18 01:25 Source: patient, RN notes reviewed, old records reviewed Mode of arrival: ambulatory Limitations: no limitations - History of Present Illness Initial comments: 28-year-old male patient passed history of asthma presents to ED with 2 days of waxing and waning substernal chest pain radiating to his left arm and shortness of breath. Patient does report that he feels the pain when he feels very anxious. Patient administered that this may be anxiety related. Patient has had prior cardiology evaluations for similar complaints. Patient denies current pain at this time. Describes the pain as a sharp, stabbing pain. Denies any associated symptoms including diaphoresis, nausea vomiting, diarrhea. Systemic: Pt denies fatigue, fever/chills, rash. Pt denies weakness, night sweats, weight loss. Neuro: Pt denies headache, visual disturbances, syncope or pre-syncope. HEENT: Pt denies ocular discharge or irritation, otalgia, rhinorrhea, pharyngitis or notable lymphadenopathy. Cardiopulmonary: Pt denies chest pain, SOB, heart palpitations, dyspnea on exertion. Abdominal/GI: Pt denies abdominal pain, n/v/d. : Pt denies dysuria, burning w/ urination, frequency/urgency. Denies new onset urinary or bowel incontinence. MSK: Pt denies myalgia, loss of strength or function in extremities. Neuro: Pt denies new onset weakness, paresthesias. - Related Data Home Medications Medication Instructions Recorded Confirmed Budesonide-Formot 160-4.5 Mcg 2 puff INHALATION RT-BID 03/26/16 06/04/18 [Symbicort 160-4.5 Mcg Inhaler] Cholecalciferol [Vitamin D3] 1,000 unit PO DAILY 03/26/16 06/04/18 ARIPiprazole [Abilify] 10 mg PO HS 01/28/18 06/04/18 Albuterol Inhaler [Ventolin Hfa 2 puff INHALATION RT-Q6H PRN 01/28/18 06/04/18 Inhaler] Loratadine [Claritin] 10 mg PO DAILY 01/28/18 06/04/18 Montelukast [Singulair] 10 mg PO DAILY 01/28/18 06/04/18 Previous Rx's Medication Instructions Recorded Cephalexin [Keflex] 500 mg PO Q6H #28 cap 06/16/18 Allergies Allergy/AdvReac Type Severity Reaction Status Date / Time Sulfa (Sulfonamide Allergy Swelling Verified 09/17/18 01:16 Antibiotics) sulfamethoxazole Allergy Swelling Verified 09/17/18 01:16 [From Bactrim] trimethoprim [From Bactrim] Allergy Swelling Verified 09/17/18 01:16 Review of Systems ROS Statement: Those systems with pertinent positive or pertinent negative responses have been documented in the HPI. ROS Other: All systems not noted in ROS Statement are negative. Past Medical History Past Medical History: Asthma Additional Past Medical History / Comment(s): PTSD, chronic migraines History of Any Multi-Drug Resistant Organisms: MRSA Date of last positivie culture/infection: 2005 MDRO Source:: leg Additional Past Surgical History / Comment(s): forehead reconstruction for head lac as child Past Psychological History: Bipolar, PTSD, Schizoaffective Disorder Smoking Status: Former smoker Past Alcohol Use History: Occasional Past Drug Use History: None Reported General Exam - General Exam Comments Initial Comments: Constitutional: NAD, AOX3, Pt has pleasant affect. HEENT: NC/AT, trachea midline, neck supple, no lymphadenopathy. Posterior pharynx non erythematous, without exudates. External ears appear normal, without discharge. Mucous membranes moist. Eyes PERRLA, EOM intact. There is no scleral icterus. No pallor noted. Cardiopulmonary: RRR, no murmurs, rubs or gallops, no JVD noted. Lungs CTAB in anterior and posterior york. No peripheral edema. Abdominal exam: Abdomen soft and non-distended. Abdomen non-tender to palpation in all 4 quadrants. Bowel sounds active in LLQ. No hepatosplenomegaly. No ecchymosis Neuro: CN II-XII grossly intact. No nuchal rigidity. No raccon eyes, no renae sign, no hemotympanum. No cervical spinal tenderness. MSK: No posterior calf tenderness bilaterally, homans sign negative bilaterally. Posterior tibialis and radial pulse +2 bilaterally. Sensation intact in upper and lower extremities. Full active ROM in upper and lower extremities, 5/5 str egnth. Limitations: no limitations Course Vital Signs 09/17/18 01:14 Temperature 98.6 F Pulse Rate 89 Respiratory 18 Rate Blood Pressure 149/67 O2 Sat by Pulse 99 Oximetry Medical Decision Making - Medical Decision Making 28-year-old male patient passed history of asthma presents to ED with 2 days of waxing and waning substernal chest pain radiating to his left arm and shortness of breath. Patient does report that he feels the pain when he feels very anxious. Patient administered that this may be anxiety related. Patient has had prior cardiology evaluations for similar complaints. Patient denies current pain at this time. Describes the pain as a sharp, stabbing pain. Denies any associated symptoms including diaphoresis, nausea vomiting, diarrhea. Patient vital signs stable, afebrile. Physical exam did not acute pathology. CBC, CMP noncompressive. Correlation studies negative. D-dimer negative. Troponin negative, BNP 29. EKG not concerning for acute ischemia. Patient was discharged, follow up with primary care provider in. Consult. Chest pain is atypical in nature. This is likely anxiety related. Case discussed with Dr. Jourdan hinton. - Lab Data Result diagrams: 09/17/18 02:18 09/17/18 02:18 Lab Results 09/17/18 09/17/18 09/17/18 Range/Units 02:18 02:18 02:18 WBC 7.2 (3.8-10.6) k/uL RBC 5.32 (4.30-5.90) m/uL Hgb 15.0 (13.0-17.5) gm/dL Hct 45.1 (39.0-53.0) % MCV 84.7 (80.0-100.0) fL MCH 28.2 (25.0-35.0) pg MCHC 33.3 (31.0-37.0) g/dL RDW 14.0 (11.5-15.5) % Plt Count 248 (150-450) k/uL Neutrophils % 59 % Lymphocytes % 28 % Monocytes % 8 % Eosinophils % 2 % Basophils % 1 % Neutrophils # 4.2 (1.3-7.7) k/uL Lymphocytes # 2.0 (1.0-4.8) k/uL Monocytes # 0.6 (0-1.0) k/uL Eosinophils # 0.1 (0-0.7) k/uL Basophils # 0.0 (0-0.2) k/uL PT 10.4 (9.0-12.0) sec INR 1.0 (<1.2) APTT 24.6 (22.0-30.0) sec D-Dimer 0.32 (<0.60) mg/L FEU Sodium 138 (137-145) mmol/L Potassium 5.0 (3.5-5.1) mmol/L Chloride 105 (98-107) mmol/L Carbon Dioxide 20 L (22-30) mmol/L Anion Gap 13 mmol/L BUN 15 (9-20) mg/dL Creatinine 0.77 (0.66-1.25) mg/dL Est GFR (CKD-EPI)AfAm >90 (>60 ml/min/1.73 sqM) Est GFR (CKD-EPI)NonAf >90 (>60 ml/min/1.73 sqM) Glucose 100 H (74-99) mg/dL Calcium 9.6 (8.4-10.2) mg/dL Magnesium 2.1 (1.6-2.3) mg/dL Total Bilirubin 1.0 (0.2-1.3) mg/dL AST 66 H (17-59) U/L ALT 66 (21-72) U/L Alkaline Phosphatase 56 (38-126) U/L Troponin I (0.000-0.034) ng/mL NT-Pro-B Natriuret Pep pg/mL Total Protein 8.2 (6.3-8.2) g/dL Albumin 5.1 H (3.5-5.0) g/dL 09/17/18 09/17/18 Range/Units 02:18 02:18 WBC (3.8-10.6) k/uL RBC (4.30-5.90) m/uL Hgb (13.0-17.5) gm/dL Hct (39.0-53.0) % MCV (80.0-100.0) fL MCH (25.0-35.0) pg MCHC (31.0-37.0) g/dL RDW (11.5-15.5) % Plt Count (150-450) k/uL Neutrophils % % Lymphocytes % % Monocytes % % Eosinophils % % Basophils % % Neutrophils # (1.3-7.7) k/uL Lymphocytes # (1.0-4.8) k/uL Monocytes # (0-1.0) k/uL Eosinophils # (0-0.7) k/uL Basophils # (0-0.2) k/uL PT (9.0-12.0) sec INR (<1.2) APTT (22.0-30.0) sec D-Dimer (<0.60) mg/L FEU Sodium (137-145) mmol/L Potassium (3.5-5.1) mmol/L Chloride (98-107) mmol/L Carbon Dioxide (22-30) mmol/L Anion Gap mmol/L BUN (9-20) mg/dL Creatinine (0.66-1.25) mg/dL Est GFR (CKD-EPI)AfAm (>60 ml/min/1.73 sqM) Est GFR (CKD-EPI)NonAf (>60 ml/min/1.73 sqM) Glucose (74-99) mg/dL Calcium (8.4-10.2) mg/dL Magnesium (1.6-2.3) mg/dL Total Bilirubin (0.2-1.3) mg/dL AST (17-59) U/L ALT (21-72) U/L Alkaline Phosphatase (38-126) U/L Troponin I <0.012 (0.000-0.034) ng/mL NT-Pro-B Natriuret Pep 29 pg/mL Total Protein (6.3-8.2) g/dL Albumin (3.5-5.0) g/dL - EKG Data -: EKG Interpreted by Me (and Dr. Burnett) EKG Comments: Ventricular rate 76, painful to 32, QRS 96, QT/QTC 376 as 423. Sinus rhythm with first-degree AV block, otherwise normal EKG, no concern for acute ischemia at this time. Disposition Clinical Impression: Atypical chest pain, Anxiety Disposition: HOME SELF-CARE Condition: Stable Instructions (If sedation given, give patient instructions): Chest Pain (ED) Additional Instructions: Patient to adhere to previously discussed treatment plan and will take medication(s) as directed. Patient to follow up with PCP in 1-2 days. Patient to return to ED if symptoms do not improve. Follow-up with primary care provider and cardiology consult. Return to ER if condition worsens. Is patient prescribed a controlled substance at d/c from ED?: No Referrals: Sunilkumar,Mini, MD [Primary Care Provider] - 1-2 days Surya Reed MD [STAFF PHYSICIAN] - 1-2 days
[2018-09-17 05:01] VITALS: BP 119/72; PULSE 65; RESP 15
== END 2018-09-17 05:02 | disposition home or self-care (01) ==
LOC: EC 00:53
DX: R07.89 Other chest pain (principal); F41.9 Anxiety disorder, unspecified; R06.02 Shortness of breath; J45.909 Unspecified asthma, uncomplicated; F25.0 Schizoaffective disorder, bipolar type; Z87.891 Personal history of nicotine dependence; Z86.14 Personal history of Methicillin resistant Staphylococcus aureus infection; Z79.51 Long term (current) use of inhaled steroids; Z79.899 Other long term (current) drug therapy; Z88.2 Allergy status to sulfonamides; Z53.29 Procedure and treatment not carried out because of patient's decision for other reasons
CPT/HCPCS: 36415; 71046; 80053; 83735; 83880; 84484; 85025; 85379; 85610; 85730; 93005; 99285

== ENCOUNTER 2018-09-26 23:56 | Emergency (ER) | payer OTHER ==
[2018-09-27 00:05] VITALS: RESP 18
[2018-09-27] MEDS ORDERED: IBUPROFEN 800 MG TAB PO STA (01:23)
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
--- NOTE | 2018-09-27 01:42 | XR ---
EXAM: XR Left Elbow Complete, 3 or More Views CLINICAL HISTORY: ITS.REASON XR Reason: Pain TECHNIQUE: Frontal, lateral and oblique views of the left elbow. COMPARISON: No relevant prior studies available. FINDINGS: Bones/joints: No acute fracture. No dislocation. Soft tissues: Unremarkable. IMPRESSION: No acute findings.
[2018-09-27 02:20] VITALS: BP 140/73; PULSE 82; TEMP 98
== END 2018-09-27 02:27 | disposition home or self-care (01) ==
LOC: EC 23:56
DX: S53.402A Unspecified sprain of left elbow, initial encounter (principal); S50.812A Abrasion of left forearm, initial encounter; J45.909 Unspecified asthma, uncomplicated; F31.9 Bipolar disorder, unspecified; F25.9 Schizoaffective disorder, unspecified; Z79.51 Long term (current) use of inhaled steroids; Z79.899 Other long term (current) drug therapy; Z88.1 Allergy status to other antibiotic agents; Z88.2 Allergy status to sulfonamides; Z87.891 Personal history of nicotine dependence; V27.4XXA Motorcycle driver injured in collision with fixed or stationary object in traffic accident, initial encounter; Y92.410 Unspecified street and highway as the place of occurrence of the external cause
CPT/HCPCS: 99283

== ENCOUNTER 2018-10-04 19:23 | Emergency (ER) | payer OTHER ==
[2018-10-04 19:55] VITALS: TEMP 98.6
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
[2018-10-04 23:07] VITALS: BP 127/89; PULSE 65; RESP 18
== END 2018-10-04 23:06 | disposition home or self-care (01) ==
LOC: EC 19:23
DX: S93.401A Sprain of unspecified ligament of right ankle, initial encounter (principal); M25.771 Osteophyte, right ankle; J45.909 Unspecified asthma, uncomplicated; F31.9 Bipolar disorder, unspecified; Z87.891 Personal history of nicotine dependence; Z88.2 Allergy status to sulfonamides; Z79.51 Long term (current) use of inhaled steroids; Z79.899 Other long term (current) drug therapy; Z86.14 Personal history of Methicillin resistant Staphylococcus aureus infection; V18.4XXA Pedal cycle driver injured in noncollision transport accident in traffic accident, initial encounter; Y93.55 Activity, bike riding; Y92.89 Other specified places as the place of occurrence of the external cause
CPT/HCPCS: 99284

== ENCOUNTER 2018-11-08 21:24 | Emergency (ER) | payer OTHER ==
[2018-11-08 21:46] VITALS: RESP 18; TEMP 98.2
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
[2018-11-08] MEDS ORDERED: ACETAMINOPHEN TAB 325 MG TAB PO STA (22:16)
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
[2018-11-08 23:07] VITALS: BP 118/70; PULSE 63
== END 2018-11-08 23:07 | disposition home or self-care (01) ==
LOC: EC 21:24
DX: S09.90XA Unspecified injury of head, initial encounter (principal); J45.909 Unspecified asthma, uncomplicated; Z87.891 Personal history of nicotine dependence; Z88.2 Allergy status to sulfonamides; Z79.51 Long term (current) use of inhaled steroids; Z79.899 Other long term (current) drug therapy; Z86.14 Personal history of Methicillin resistant Staphylococcus aureus infection; Z98.890 Other specified postprocedural states; W22.8XXA Striking against or struck by other objects, initial encounter; Y93.89 Activity, other specified; Y92.009 Unspecified place in unspecified non-institutional (private) residence as the place of occurrence of the external cause
CPT/HCPCS: 70450; 72125; 99284

== ENCOUNTER 2018-11-13 23:01 | Emergency (ER) | payer OTHER ==
[2018-11-13] MEDS ORDERED: ACETAMINOPHEN TAB 500 MG TAB PO STA (23:34)
[2018-11-13] MEDS ORDERED: SODIUM CHLORIDE 0.9% 1,000 ML IV STA (23:34)
[2018-11-13] MEDS ORDERED: ONDANSETRON 4 MG/2 ML VIAL IVP STA (23:34)
[2018-11-13] MEDS ORDERED: diphenhydrAMINE 50 MG/ML 1 ML VIAL IVP STA (23:35)
--- NOTE | 2018-11-14 00:09 | CT ---
EXAM: CT Head Without Intravenous Contrast CLINICAL HISTORY: Headache. TECHNIQUE: Axial computed tomography images of the head/brain without intravenous contrast. CTDI is 49.1 mGy and DLP is 1131 mGy-cm. This CT exam was performed using one or more of the following dose reduction techniques: automated exposure control, adjustment of the mA and/or kV according to patient size, and/or use of iterative reconstruction technique. COMPARISON: 11/08/2018. FINDINGS: Brain: No abnormal extra-axial collection No hemorrhage. Midline shift: No midline shift or mass-effect. Ventricles: Ventricular system is age appropriate in size and unchanged. Bones/joints: No skull fracture. Soft tissues: Unremarkable. Sinuses: Unremarkable as visualized. No acute sinusitis. Mastoid air cells: Visualized sinuses and mastoid air cells are unremarkable. IMPRESSION: No acute intracranial pathology. No significant change from the previous study.
[2018-11-14] MEDS ORDERED: KETOROLAC 30 MG/ML 1 ML VIAL IVP STA (00:11)
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
[2018-11-14 02:16] LABS: Basophils # (A) 0.1 k/uL (0-0.2); Basophils % (A) 1 %; Eosinophils # (A) 0.2 k/uL (0-0.7); Eosinophils % (A) 3 %; HCT 46.4 % (39.0-53.0); HGB 15.8 gm/dL (13.0-17.5); Lymphocytes # (A) 2.5 k/uL (1.0-4.8); Lymphocytes % (A) 31 %; MCH 29.1 pg (25.0-35.0); MCHC 34.1 g/dL (31.0-37.0); MCV 85.2 fL (80.0-100.0); Mean Platelet Volume 6.8; Monocytes # (A) 0.4 k/uL (0-1.0); Monocytes % (A) 6 %; Neutrophils # (A) 4.7 k/uL (1.3-7.7); Neutrophils % (A) 59 %; Platelet Count 254 k/uL (150-450); RBC 5.45 m/uL (4.30-5.90); RDW 12.8 % (11.5-15.5)
[2018-11-14 02:26] LABS: African American GFR (CKD) >90 (>60 ml/min/1.73 sqM); Anion Gap 11 mmol/L; Blood Urea Nitrogen 13 mg/dL (9-20); Calcium 9.7 mg/dL (8.4-10.2); Carbon Dioxide 24 mmol/L (22-30); Chloride 104 mmol/L (98-107); Glucose 95 mg/dL (74-99); Magnesium 2.1 mg/dL (1.6-2.3); Sodium 139 mmol/L (137-145)
[2018-11-14 02:46] LABS: Potassium 4.4 mmol/L (3.5-5.1)
[2018-11-14 04:12] VITALS: BP 108/59; PULSE 61; RESP 18; TEMP 98.1
== END 2018-11-14 03:49 | disposition home or self-care (01) ==
LOC: EC 23:01
DX: S09.90XA Unspecified injury of head, initial encounter (principal); J45.909 Unspecified asthma, uncomplicated; G43.909 Migraine, unspecified, not intractable, without status migrainosus; Z79.51 Long term (current) use of inhaled steroids; Z79.899 Other long term (current) drug therapy; Z87.891 Personal history of nicotine dependence; Z88.2 Allergy status to sulfonamides; Z86.14 Personal history of Methicillin resistant Staphylococcus aureus infection; W22.8XXA Striking against or struck by other objects, initial encounter; Y93.89 Activity, other specified
CPT/HCPCS: 36415; 70450; 80048; 83735; 85025; 96361; 96374; 96375; 99284

== ENCOUNTER → 2018-11-18 | Outpatient (CLI) | payer OTHER ==
[2018-11-18 11:53] LABS: Basophils # (A) 0.1 k/uL (0-0.2); Basophils % (A) 1 %; Eosinophils # (A) 0.2 k/uL (0-0.7); Eosinophils % (A) 3 %; HGB 15.8 gm/dL (13.0-17.5); Lymphocytes # (A) 1.7 k/uL (1.0-4.8); Lymphocytes % (A) 23 %; MCH 29.1 pg (25.0-35.0); MCHC 33.5 g/dL (31.0-37.0); MCV 86.9 fL (80.0-100.0); Mean Platelet Volume 7.2; Monocytes # (A) 0.7 k/uL (0-1.0); Monocytes % (A) 9 %; Neutrophils # (A) 4.8 k/uL (1.3-7.7); Neutrophils % (A) 63 %; Platelet Count 248 k/uL (150-450); RBC 5.41 m/uL (4.30-5.90); RDW 14.4 % (11.5-15.5); WBC 7.6 k/uL (3.8-10.6)
[2018-11-18 17:16] LABS: Protein, Total 6.8 g/dL (6.2-8.2)
[2018-11-18 17:17] LABS: Iron Saturation 16.67 (15.00-50.00)
[2018-11-18 17:47] LABS: Alpha Fetoprotein, Tumor Mkr <2.5 ng/mL (0.0-7.9)
[2018-11-18 17:52] LABS: African American GFR (CKD) 133.3 (60.0-200.0); Albumin 4.8 g/dL (3.80-4.90); Albumin/Globulin Ratio 2.18 (1.60-3.17); Anion Gap 6.2 mmol/L (4.00-12.00); BUN/Creat Ratio 16.67 Ratio (12.00-20.00); Calcium 9.6 mg/dL (8.7-10.3); Carbon Dioxide 26.8 mmol/L (21.6-31.8); Globulin 2.2 g/dL (1.6-3.3); Total Bilirubin 0.4 mg/dL (0.3-1.2)
[2018-11-18 17:53] LABS: Gliadin AB IgA, Unit <0.2 U/mL
[2018-11-19 10:16] LABS: Albumin 4.22 g/dL (3.80-4.90); Gamma Globulin 1.07 g/dL (0.70-1.50)
[2018-11-19 11:40] LABS: Liver/Kidney Microsome Antibod 1.1 UNITS (<=20)
[2018-11-19 13:56] LABS: Ceruloplasmin 18.8 mg/dL (20.0-60.0)
== END | disposition home or self-care (01) ==
LOC: LABWHC1 10:51
PROVIDERS: ATTEND Internal Medicine
DX: R74.8 Abnormal levels of other serum enzymes (principal)
CPT/HCPCS: 36415; 80053; 82103; 82105; 82390; 82728; 83516; 83540; 83550; 84165; 85025; 86038; 86376

== ENCOUNTER 2018-11-29 03:35 | Emergency (ER) | payer OTHER ==
[2018-11-29 03:40] VITALS: RESP 18
[2018-11-29] MEDS ORDERED: KETOROLAC 30 MG/ML 1 ML VIAL IM STA (04:25)
[2018-11-29] MEDS ORDERED: AMOXIC-POT CLAV 875-125MG 1 EACH TAB PO STA (04:26)
--- NOTE | 2018-11-29 04:27 | ED ---
ENT HPI - General Chief complaint: Dental/Oral Stated complaint: dental pain Time Seen by Provider: 11/29/18 03:59 Source: patient Mode of arrival: ambulatory Limitations: no limitations - History of Present Illness Initial comments: Patient is a 28-year-old male with a history of poor dentition is presenting to emergency Department with a chief complaint of tooth pain. Patient reports pain started about 2 days ago and is increases.. Patient reports missing teeth in the upper left jaw. Patient reports she has not seen a dentist in a long time. Patient denies any swelling, erythema or edema and his face. Patient reports the pain does not radiate along the neck or the head. Patient denies any fevers night sweats or chills. Patient denies taking medication to alleviate the symptoms. Patient does not wear dentures. Patient reports pain is a 8 out of 10. And throbbing - Related Data Home Medications Medication Instructions Recorded Confirmed Budesonide-Formot 160-4.5 Mcg 2 puff INHALATION RT-BID 03/26/16 11/13/18 [Symbicort 160-4.5 Mcg Inhaler] Cholecalciferol [Vitamin D3] 1,000 unit PO DAILY 03/26/16 11/13/18 Albuterol Inhaler [Ventolin Hfa 2 puff INHALATION RT-Q6H PRN 01/28/18 11/13/18 Inhaler] Loratadine [Claritin] 10 mg PO DAILY 01/28/18 11/13/18 Montelukast [Singulair] 10 mg PO DAILY 01/28/18 11/13/18 Previous Rx's Medication Instructions Recorded Amoxicillin/Potassium Clav 1 tab PO Q12HR #20 tab 11/29/18 [Augmentin 875-125 Tablet] Allergies Allergy/AdvReac Type Severity Reaction Status Date / Time Sulfa (Sulfonamide Allergy Swelling Verified 11/29/18 03:40 Antibiotics) sulfamethoxazole Allergy Swelling Verified 11/29/18 03:40 [From Bactrim] trimethoprim [From Bactrim] Allergy Swelling Verified 11/29/18 03:40 Review of Systems ROS Statement: Those systems with pertinent positive or pertinent negative responses have been documented in the HPI. ROS Other: All systems not noted in ROS Statement are negative. Past Medical History Past Medical History: Asthma, Liver Disease Additional Past Medical History / Comment(s): PTSD, chronic migraines, History of Any Multi-Drug Resistant Organisms: MRSA Date of last positivie culture/infection: 2005 MDRO Source:: leg Additional Past Surgical History / Comment(s): forehead reconstruction for head lac as child, Past Psychological History: Bipolar, Depression, PTSD, Schizoaffective Disorder Smoking Status: Former smoker Past Alcohol Use History: Occasional Past Drug Use History: None Reported General Exam Limitations: no limitations General appearance: alert, in no apparent distress Head exam: Present: atraumatic, normocephalic, normal inspection Eye exam: Present: normal appearance, PERRL, EOMI Pupils: Present: normal accommodation ENT exam: Present: normal exam, mucous membranes moist, normal external ear exam. Absent: normal oropharynx (Multiple cavities and missing teeth in the upper left jaw. Cavity in tooth #10 that appears to be erythematous but no discharge. No dental abscesses noted.) Neck exam: Present: normal inspection, full ROM Respiratory exam: Present: normal lung sounds bilaterally Cardiovascular Exam: Present: regular rate, normal rhythm, normal heart sounds Extremities exam: Present: normal inspection, full ROM Back exam: Present: normal inspection, full ROM Neurological exam: Present: alert, oriented X3 Psychiatric exam: Present: normal affect, normal mood Skin exam: Present: warm, intact, normal color Course Vital Signs 11/29/18 11/29/18 03:37 05:38 Temperature 98.6 F 98.7 F Pulse Rate 83 82 Respiratory 18 18 Rate Blood Pressure 128/79 134/90 O2 Sat by Pulse 98 97 Oximetry Medical Decision Making - Medical Decision Making Patient is a 28-year-old male with history of poor dentition is presenting to the emergency department with a chief complaint of dental pain. Patient does not have any fevers or chills. Patient does have any swelling can reports the pain is throbbing. On physical examination no dental abscesses noted. Patient has d poor entition with multiple missing teeth. It appears to tooth #3 is inflamed due to a severe cavity. Patient advised to follow-up with a dentist. Patient advised that the [facility] offers free dental care. Patient given Toradol. Patient given Augmentin and will be discharged with a 10 day course of Augmentin. Strict return parameters were thoroughly discussed with patient was understanding and agreeable. Case discussed physician. Disposition Clinical Impression: Dental infection Disposition: HOME SELF-CARE Condition: Stable Instructions (If sedation given, give patient instructions): Toothache (ED) Additional Instructions: Please take prescribed medication as directed. Please follow with a dentist.. Please return to emergency department if symptoms worse. Prescriptions: Amoxicillin/Potassium Clav [Augmentin 875-125 Tablet] 1 tab PO Q12HR #20 tab Is patient prescribed a controlled substance at d/c from ED?: No Referrals: Marycarmen Gaston MD [Primary Care Provider] - 1-2 days Time of Disposition: 04:27
[2018-11-29 05:39] VITALS: BP 134/90; PULSE 82; TEMP 98.7
== END 2018-11-29 05:39 | disposition home or self-care (01) ==
LOC: EC 03:35
DX: K04.7 Periapical abscess without sinus (principal); K00.7 Teething syndrome; J45.909 Unspecified asthma, uncomplicated; Z79.51 Long term (current) use of inhaled steroids; Z79.899 Other long term (current) drug therapy; Z88.2 Allergy status to sulfonamides; Z87.891 Personal history of nicotine dependence; Z86.14 Personal history of Methicillin resistant Staphylococcus aureus infection
CPT/HCPCS: 99282; J1885

== ENCOUNTER 2018-12-05 00:27 | Emergency (ER) | payer OTHER ==
[2018-12-05 00:35] VITALS: BP 124/75; PULSE 78; RESP 20; TEMP 98.9
[2018-12-05] MEDS ORDERED: ONDANSETRON 4 MG ODT STARTER PACK 2 TAB BTL PO STA (01:02)
--- NOTE | 2018-12-05 01:02 | ED ---
ENT HPI - General Chief complaint: Dental/Oral Stated complaint: Dental pain,nausea Time Seen by Provider: 12/05/18 00:42 Source: patient Limitations: no limitations - History of Present Illness Initial comments: Arturo is a 28-year-old gentleman presents the ER for evaluation of wound check. Patient had multiple teeth pulled at the dentist office yesterday, when his teeth were pulled he was advised that he had a small abscess around one tooth. He was started on antibiotics and also given Tylenol No. 3 and Motrin for pain management. Patient reports that since having teeth pulled he's had persistent nausea and just isn't feeling well he also wanted the wound rechecked. Patient states that he tries to eat before taking his medications but he is only on a liquid diet he did eat some bread with peanut butter today. Denies any vomiting but states he just feels nauseated. - Related Data Home Medications Medication Instructions Recorded Confirmed Budesonide-Formot 160-4.5 Mcg 2 puff INHALATION RT-BID 03/26/16 11/13/18 [Symbicort 160-4.5 Mcg Inhaler] Cholecalciferol [Vitamin D3] 1,000 unit PO DAILY 03/26/16 11/13/18 Albuterol Inhaler [Ventolin Hfa 2 puff INHALATION RT-Q6H PRN 01/28/18 11/13/18 Inhaler] Loratadine [Claritin] 10 mg PO DAILY 01/28/18 11/13/18 Montelukast [Singulair] 10 mg PO DAILY 01/28/18 11/13/18 Previous Rx's Medication Instructions Recorded Amoxicillin/Potassium Clav 1 tab PO Q12HR #20 tab 11/29/18 [Augmentin 875-125 Tablet] Allergies Allergy/AdvReac Type Severity Reaction Status Date / Time Sulfa (Sulfonamide Allergy Swelling Verified 12/05/18 00:35 Antibiotics) sulfamethoxazole Allergy Swelling Verified 12/05/18 00:35 [From Bactrim] trimethoprim [From Bactrim] Allergy Swelling Verified 12/05/18 00:35 Review of Systems ROS Statement: Those systems with pertinent positive or pertinent negative responses have been documented in the HPI. ROS Other: All systems not noted in ROS Statement are negative. Past Medical History Past Medical History: Asthma, Liver Disease Additional Past Medical History / Comment(s): PTSD, chronic migraines, History of Any Multi-Drug Resistant Organisms: MRSA Date of last positivie culture/infection: 2005 MDRO Source:: leg Additional Past Surgical History / Comment(s): forehead reconstruction for head lac as child, Past Psychological History: Bipolar, Depression, PTSD, Schizoaffective Disorder Smoking Status: Former smoker Past Alcohol Use History: Occasional Past Drug Use History: None Reported General Exam - General Exam Comments Initial Comments: Physical Exam GENERAL: Patient is well-developed and well-nourished. Patient is nontoxic and well-hydrated and is in no distress. HENT: Normocephalic, Atraumatic. Poor dentition Teeth #6 through 11 have been struck to head, sutures in place, tissue is well- appearing with no signs of infection EYES: PERRL, EOMI PULMONARY: Unlabored respirations CARDIOVASCULAR: RRR ABDOMEN: Nondistended SKIN: Skin is clear with no lesions or rashes and otherwise unremarkable. : Deferred NEUROLOGIC: Patient is alert and oriented x3. Moving all extremities spontaneously MUSCULOSKELETAL: Normal extremities with adequate strength and full range of motion. No lower extremity swelling or edema. No calf tenderness. PSYCHIATRIC: Normal psychiatric evaluation. Limitations: no limitations Course Vital Signs 12/05/18 00:31 Temperature 98.9 F Pulse Rate 78 Respiratory 20 Rate Blood Pressure 124/75 O2 Sat by Pulse 97 Oximetry Medical Decision Making - Medical Decision Making The patient was seen and evaluated history is obtained from the patient Sites of dental extraction seemed to be well healing there is no bleeding there is no purulence there is no significant erythema there is some bruising to the tissue consistent with surgical intervention Suspect that the patient's persistent nausea is related to polypharmacy, likely related to taking medications with limited food in his stomach and related to taking Tylenol 3, I will prescribe Zofran 4 symptomatically treatment encourage continued by mouth intake. Patient is otherwise well-appearing stable for discharge home. Disposition Clinical Impression: Pain, dental Disposition: HOME SELF-CARE Condition: Stable Instructions (If sedation given, give patient instructions): Toothache (ED) Is patient prescribed a controlled substance at d/c from ED?: No Referrals: Marycarmen Gaston MD [Primary Care Provider] - 1-2 days
== END 2018-12-05 01:20 | disposition home or self-care (01) ==
LOC: EC 00:27
DX: K08.89 Other specified disorders of teeth and supporting structures (principal); R11.0 Nausea; J45.909 Unspecified asthma, uncomplicated; Z79.51 Long term (current) use of inhaled steroids; Z79.899 Other long term (current) drug therapy; Z88.2 Allergy status to sulfonamides; Z88.1 Allergy status to other antibiotic agents; Z86.69 Personal history of other diseases of the nervous system and sense organs; Z98.818 Other dental procedure status; Z87.891 Personal history of nicotine dependence; Z86.14 Personal history of Methicillin resistant Staphylococcus aureus infection
CPT/HCPCS: 99283; S0119

== ENCOUNTER 2018-12-06 00:12 | Emergency (ER) | payer OTHER ==
[2018-12-06 00:23] VITALS: BP 123/79; PULSE 83; RESP 18; TEMP 98.1
--- NOTE | 2018-12-06 01:39 | ED ---
General Adult HPI - General Chief complaint: Dental/Oral Stated complaint: Recheck Issue with stitches in mouth Time Seen by Provider: 12/06/18 00:26 Source: patient, RN notes reviewed, old records reviewed Mode of arrival: ambulatory Limitations: no limitations - History of Present Illness Initial comments: 28-year-old male patient in the chief complaint of pain in upper gums. Patient reportedly had his upper teeth removed by an oral surgeon. Patient currently have sutures. Patient reports that the sutures are causing pain and mild amount of bleeding. Patient denies any other complaints at this time. Systemic: Pt denies fatigue, fever/chills, rash. Pt denies weakness, night sweats, weight loss. Neuro: Pt denies headache, visual disturbances, syncope or pre-syncope. HEENT: Pt denies ocular discharge or irritation, otalgia, rhinorrhea, pharyngitis or notable lymphadenopathy. Cardiopulmonary: Pt denies chest pain, SOB, heart palpitations, dyspnea on exertion. Abdominal/GI: Pt denies abdominal pain, n/v/d. : Pt denies dysuria, burning w/ urination, frequency/urgency. Denies new onset urinary or bowel incontinence. MSK: Pt denies myalgia, loss of strength or function in extremities. Neuro: Pt denies new onset weakness, paresthesias. - Related Data Home Medications Medication Instructions Recorded Confirmed Budesonide-Formot 160-4.5 Mcg 2 puff INHALATION RT-BID 03/26/16 11/13/18 [Symbicort 160-4.5 Mcg Inhaler] Cholecalciferol [Vitamin D3] 1,000 unit PO DAILY 03/26/16 11/13/18 Albuterol Inhaler [Ventolin Hfa 2 puff INHALATION RT-Q6H PRN 01/28/18 11/13/18 Inhaler] Loratadine [Claritin] 10 mg PO DAILY 01/28/18 11/13/18 Montelukast [Singulair] 10 mg PO DAILY 01/28/18 11/13/18 Previous Rx's Medication Instructions Recorded Amoxicillin/Potassium Clav 1 tab PO Q12HR #20 tab 11/29/18 [Augmentin 875-125 Tablet] Amoxicillin/Potassium Clav 1 each PO Q12HR #14 tab 12/06/18 [Augmentin 875-125 Tablet] Allergies Allergy/AdvReac Type Severity Reaction Status Date / Time Sulfa (Sulfonamide Allergy Swelling Verified 12/06/18 00:23 Antibiotics) sulfamethoxazole Allergy Swelling Verified 12/06/18 00:23 [From Bactrim] trimethoprim [From Bactrim] Allergy Swelling Verified 12/06/18 00:23 Review of Systems ROS Statement: Those systems with pertinent positive or pertinent negative responses have been documented in the HPI. ROS Other: All systems not noted in ROS Statement are negative. Past Medical History Past Medical History: Asthma, Liver Disease Additional Past Medical History / Comment(s): PTSD, chronic migraines, History of Any Multi-Drug Resistant Organisms: MRSA Date of last positivie culture/infection: 2005 MDRO Source:: leg Additional Past Surgical History / Comment(s): forehead reconstruction for head lac as child, Past Psychological History: Bipolar, Depression, PTSD, Schizoaffective Disorder Smoking Status: Former smoker Past Alcohol Use History: Occasional Past Drug Use History: None Reported General Exam - General Exam Comments Initial Comments: Constitutional: NAD, AOX3, Pt has pleasant affect. HEENT: NC/AT, trachea midline, neck supple, no lymphadenopathy. Posterior pharynx non erythematous, without exudates. External ears appear normal, without discharge. Mucous membranes moist. Eyes PERRLA, EOM intact. There is no scleral icterus. No pallor noted. Oral exam revealed intact sutuers of gums in place of previous teeth 6-11. No discharge or erythema, no fluctuance. Cardiopulmonary: RRR, no murmurs, rubs or gallops, no JVD noted. Lungs CTAB in anterior and posterior york. No peripheral edema. Abdominal exam: Abdomen soft and non-distended. Abdomen non-tender to palpation in all 4 quadrants. Bowel sounds active in LLQ. No hepatosplenomegaly. No ecchymosis Neuro: CN II-XII grossly intact. No nuchal rigidity. No raccon eyes, no renae sign, no hemotympanum. No cervical spinal tenderness. MSK: No posterior calf tenderness bilaterally, homans sign negative bilaterally. Posterior tibialis and radial pulse +2 bilaterally. Sensation intact in upper and lower extremities. Full active ROM in upper and lower extremities, 5/5 stregnth. Limitations: no limitations Course Vital Signs 12/06/18 00:21 Temperature 98.1 F Pulse Rate 83 Respiratory 18 Rate Blood Pressure 123/79 O2 Sat by Pulse 98 Oximetry Medical Decision Making - Medical Decision Making 28-year-old male patient in the chief complaint of pain in upper gums. Patient reportedly had his upper teeth removed by an oral surgeon. Patient currently have sutures. Patient reports that the sutures are causing pain and mild amount of bleeding. Patient denies any other complaints at this time. Pt VSS, afebrile. Physical exam displayed: Oral exam revealed intact sutuers of gums in place of previous teeth 6-11. No discharge or erythema, no fluctuance. Patient was discharged with antibiotics, will follow-up with oral surgeon. Return precautions discussed. Case discussed with Dr. Burnett. Disposition Clinical Impression: Pain, dental Disposition: HOME SELF-CARE Condition: Stable Instructions (If sedation given, give patient instructions): Toothache (ED) Additional Instructions: Patient to adhere to previously discussed treatment plan and will take medication(s) as directed. Patient to follow up with PCP in 1-2 days. Patient to return to ED if symptoms do not improve. Follow up with oral surgeon, to take medication as directed. Return to ER if condition worsens. Prescriptions: Amoxicillin/Potassium Clav [Augmentin 875-125 Tablet] 1 each PO Q12HR #14 tab Is patient prescribed a controlled substance at d/c from ED?: No Referrals: Marycarmen Gaston MD [Primary Care Provider] - 1-2 days
== END 2018-12-06 01:56 | disposition home or self-care (01) ==
LOC: EC 00:12
DX: K08.89 Other specified disorders of teeth and supporting structures (principal); K91.841 Postprocedural hemorrhage of a digestive system organ or structure following other procedure; K08.409 Partial loss of teeth, unspecified cause, unspecified class; J45.909 Unspecified asthma, uncomplicated; Z86.14 Personal history of Methicillin resistant Staphylococcus aureus infection; Z87.891 Personal history of nicotine dependence; Z79.51 Long term (current) use of inhaled steroids; Z79.899 Other long term (current) drug therapy; Z88.2 Allergy status to sulfonamides
CPT/HCPCS: 99283

== ENCOUNTER 2019-02-10 22:52 | Emergency (ER) | payer OTHER ==
[2019-02-10 22:56] VITALS: BP 125/81; PULSE 83; RESP 20; TEMP 100.4
--- NOTE | 2019-02-10 23:24 | XR ---
EXAMINATION TYPE: XR hand complete RT DATE OF EXAM: 02/10/2019 COMPARISON: NONE HISTORY: Pain TECHNIQUE: 3 views FINDINGS: Metacarpals are intact. The little finger is intact. I see no fracture nor dislocation. The re are no erosions. IMPRESSION: Negative right hand exam. No fracture.
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
== END 2019-02-10 23:50 | disposition home or self-care (01) ==
LOC: EC 22:52
DX: M79.644 Pain in right finger(s) (principal); M79.641 Pain in right hand; J45.909 Unspecified asthma, uncomplicated; Z79.51 Long term (current) use of inhaled steroids; Z79.899 Other long term (current) drug therapy; Z88.1 Allergy status to other antibiotic agents; Z88.2 Allergy status to sulfonamides; Z87.891 Personal history of nicotine dependence
CPT/HCPCS: 29125; 99283

== ENCOUNTER 2019-04-05 21:05 | Emergency (ER) | payer OTHER ==
[2019-04-05 21:26] VITALS: BP 135/82; PULSE 78; RESP 20; TEMP 98.4
--- NOTE | 2019-04-05 22:10 | XR ---
EXAMINATION TYPE: XR hand complete LT DATE OF EXAM: 04/05/2019 COMPARISON: NONE HISTORY: Hand pain TECHNIQUE: 3 views FINDINGS: Metacarpals are intact. Joint spaces are fairly normal. I see no fracture nor dislocation. There are no erosions. IMPRESSION: Negative left hand exam. No fracture seen.
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
== END 2019-04-05 22:23 | disposition home or self-care (01) ==
LOC: EC 21:05
DX: M79.642 Pain in left hand (principal); J45.909 Unspecified asthma, uncomplicated; Z79.899 Other long term (current) drug therapy; Z88.1 Allergy status to other antibiotic agents; Z88.2 Allergy status to sulfonamides; Z87.891 Personal history of nicotine dependence
CPT/HCPCS: 99283

== ENCOUNTER 2019-04-09 22:27 | Emergency (ER) | payer OTHER ==
[2019-04-09 22:30] VITALS: TEMP 98
[2019-04-09] MEDS ORDERED: SODIUM CHLORIDE 0.9% 1,000 ML IV ONE (22:42)
[2019-04-09] MEDS ORDERED: diphenhydrAMINE 50 MG/ML 1 ML VIAL IVP STA (22:42)
[2019-04-09] MEDS ORDERED: KETOROLAC 30 MG/ML 1 ML VIAL IVP STA (22:42)
[2019-04-09] MEDS ORDERED: METOCLOPRAMIDE 5 MG/ML 2 ML VIAL IVP STA (22:42)
--- NOTE | 2019-04-09 22:56 | ED ---
General Adult HPI - General Chief complaint: Headache Stated complaint: headaches Time Seen by Provider: 04/09/19 22:32 Source: patient Mode of arrival: ambulatory Limitations: no limitations - History of Present Illness Initial comments: 29-year-old male patient presents to the emergency department today for evaluation of migraine headache. Patient states he does have a history of migraines. States this current headache has been present for the last week. States that times the pain is less. States today the pain has been increasing. States that his starts in the left side of his head and travels to the right eye. Patient states that he has had some mild nausea with this. Denies any blurred or double vision. Denies any numbness, tingling, weakness to his extremities. Denies any head injury. States he has been taking Tylenol without relief. Patient states that his symptoms are consistent with his usual migraine pattern. Patient denies any recent rash, fever, chills, shortness breath, chest pain, abdominal pain, diarrhea, constipation, back pain, numbness, tingling, dizziness, weakness, hematuria, dysuria, urinary urgency, urinary frequency, or any other complaints. - Related Data Home Medications Medication Instructions Recorded Confirmed Budesonide-Formot 160-4.5 Mcg 2 puff INHALATION RT-BID 03/26/16 11/13/18 [Symbicort 160-4.5 Mcg Inhaler] Cholecalciferol [Vitamin D3] 1,000 unit PO DAILY 03/26/16 11/13/18 Albuterol Inhaler [Ventolin Hfa 2 puff INHALATION RT-Q6H PRN 01/28/18 11/13/18 Inhaler] Loratadine [Claritin] 10 mg PO DAILY 01/28/18 11/13/18 Montelukast [Singulair] 10 mg PO DAILY 01/28/18 11/13/18 Previous Rx's Medication Instructions Recorded Amoxicillin/Potassium Clav 1 tab PO Q12HR #20 tab 11/29/18 [Augmentin 875-125 Tablet] Amoxicillin/Potassium Clav 1 each PO Q12HR #14 tab 12/06/18 [Augmentin 875-125 Tablet] Amoxicillin/Potassium Clav 1 each PO Q12HR 7 Days #14 tab 12/06/18 [Augmentin 875-125 Tablet] Allergies Allergy/AdvReac Type Severity Reaction Status Date / Time Sulfa (Sulfonamide Allergy Swelling Verified 04/09/19 22:30 Antibiotics) sulfamethoxazole Allergy Swelling Verified 04/09/19 22:30 [From Bactrim] trimethoprim [From Bactrim] Allergy Swelling Verified 04/09/19 22:30 Review of Systems ROS Statement: Those systems with pertinent positive or pertinent negative responses have been documented in the HPI. ROS Other: All systems not noted in ROS Statement are negative. Past Medical History Past Medical History: Asthma, Liver Disease Additional Past Medical History / Comment(s): PTSD, chronic migraines, History of Any Multi-Drug Resistant Organisms: MRSA Date of last positivie culture/infection: 2005 MDRO Source:: leg Additional Past Surgical History / Comment(s): forehead reconstruction for head lac as child, Past Psychological History: Bipolar, Depression, PTSD, Schizoaffective Disorder Smoking Status: Former smoker Past Alcohol Use History: Occasional Past Drug Use History: None Reported General Exam Limitations: no limitations General appearance: alert, in no apparent distress, other (This is a well- developed, well-nourished adult male patient in no acute distress. Vital signs upon presentation are temperature 98.2F, pulse 85, respirations 20, blood pressure 124/81, pulse ox 99% on room air.) Eye exam: Present: normal appearance, PERRL, EOMI. Absent: scleral icterus, conjunctival injection, nystagmus, periorbital swelling ENT exam: Present: normal exam, normal oropharynx, mucous membranes moist Neck exam: Present: normal inspection. Absent: tenderness, meningismus, lymphadenopathy Respiratory exam: Present: normal lung sounds bilaterally. Absent: respiratory distress, wheezes, rales, rhonchi, stridor Cardiovascular Exam: Present: regular rate, normal rhythm, normal heart sounds. Absent: systolic murmur, diastolic murmur, rubs, gallop, clicks Neurological exam: Present: alert, oriented X3, CN II-XII intact, other (Strength in all 4 extremities is 5/5.) Psychiatric exam: Present: normal affect, normal mood Skin exam: Present: warm, dry, intact, normal color. Absent: rash Course Vital Signs 04/09/19 04/10/19 22:29 00:14 Temperature 98.0 F Pulse Rate 85 71 Respiratory 20 16 Rate Blood Pressure 124/81 138/98 O2 Sat by Pulse 99 97 Oximetry Medical Decision Making - Medical Decision Making 29-year-old male patient presents to the emergency department today for evaluation of migraine headache. Patient does have history of migraines, states his symptoms are consistent with his usual migraine pattern. Physical examination is unremarkable. He is neurologically intact with no focal deficits. He is given IV fluids and medication. Upon reevaluation states his headache is completely resolved. He'll be discharged home to follow-up with his primary care physician for further evaluation. He is urged to discuss possible prophylactic medication or abortive medication for his migraines. Return parameters were discussed in detail. He verbalizes understanding and agrees with this plan. Disposition Clinical Impression: Migraine headache Disposition: HOME SELF-CARE Condition: Good Instructions (If sedation given, give patient instructions): Migraine Headache (ED) Additional Instructions: Increase fluids. Rest. Follow up through primary care physician for recheck in 1-2 days. Return to the emergency department immediately for any new, worsening, or concerning symptoms. Is patient prescribed a controlled substance at d/c from ED?: No Referrals: Marycarmen Gaston MD [Primary Care Provider] - 1-2 days Time of Disposition: 00:00
[2019-04-10 00:15] VITALS: BP 138/98; PULSE 71; RESP 16
== END 2019-04-10 00:14 | disposition home or self-care (01) ==
LOC: EC 22:27
DX: G43.909 Migraine, unspecified, not intractable, without status migrainosus (principal); J45.909 Unspecified asthma, uncomplicated; Z79.51 Long term (current) use of inhaled steroids; Z79.899 Other long term (current) drug therapy; Z88.2 Allergy status to sulfonamides; Z88.1 Allergy status to other antibiotic agents; Z87.891 Personal history of nicotine dependence; Z98.890 Other specified postprocedural states; Z86.14 Personal history of Methicillin resistant Staphylococcus aureus infection
CPT/HCPCS: 99283; 96374; 96375; 96361; J2765; J1885

== ENCOUNTER 2019-04-11 15:20 | Emergency (ER) | payer OTHER ==
[2019-04-11 15:24] VITALS: RESP 18
[2019-04-11] MEDS ORDERED: IPRATROPIUM-ALBUTEROL 3 ML NEB INHALATION STA (15:47)
--- NOTE | 2019-04-11 16:32 | XR ---
EXAMINATION TYPE: XR chest 2V DATE OF EXAM: 04/11/2019 COMPARISON: 09/17/2018 HISTORY: 29-year-old male with cough, fever, weakness TECHNIQUE: PA and lateral views FINDINGS: The cardiomediastinal silhouette, aorta, and pulmonary vasculature are within normal limits. Very mil d central peribronchial cuffing. Otherwise, lungs and pleural spaces are clear. IMPRESSION: Mild central peribronchial cuffing could reflect bronchitis or asthma. Otherwise, no acute cardiopulm onary process.
[2019-04-11] MEDS ORDERED: predniSONE 50 MG TAB PO STA (16:33)
--- NOTE | 2019-04-11 16:36 | ED ---
General Adult HPI - General Chief complaint: Upper Respiratory Infection Stated complaint: Sore throat Time Seen by Provider: 04/11/19 15:26 Source: patient, RN notes reviewed Mode of arrival: ambulatory Limitations: no limitations - History of Present Illness Initial comments: 29-year-old male with a past medical history of asthma, PTSD, chronic migraines presents to the emergency department for a chief complaint of cough. Patient states that he has had cough congestion and sore throat for the past 2 days. States he feels like his asthma is acting up as well. Patient does smoke with a vape pen. Denies fevers or chills. Denies chest pain.Patient has no other complaints at this time including shortness of breath, chest pain, abdominal pain, nausea or vomiting, headache, or visual changes. - Related Data Home Medications Medication Instructions Recorded Confirmed Budesonide-Formot 160-4.5 Mcg 2 puff INHALATION RT-BID 03/26/16 11/13/18 [Symbicort 160-4.5 Mcg Inhaler] Cholecalciferol [Vitamin D3] 1,000 unit PO DAILY 03/26/16 11/13/18 Albuterol Inhaler [Ventolin Hfa 2 puff INHALATION RT-Q6H PRN 01/28/18 11/13/18 Inhaler] Loratadine [Claritin] 10 mg PO DAILY 01/28/18 11/13/18 Montelukast [Singulair] 10 mg PO DAILY 01/28/18 11/13/18 Previous Rx's Medication Instructions Recorded Amoxicillin/Potassium Clav 1 tab PO Q12HR #20 tab 11/29/18 [Augmentin 875-125 Tablet] Amoxicillin/Potassium Clav 1 each PO Q12HR #14 tab 12/06/18 [Augmentin 875-125 Tablet] Amoxicillin/Potassium Clav 1 each PO Q12HR 7 Days #14 tab 12/06/18 [Augmentin 875-125 Tablet] predniSONE 50 mg PO DAILY #5 tablet 04/11/19 Allergies Allergy/AdvReac Type Severity Reaction Status Date / Time Sulfa (Sulfonamide Allergy Swelling Verified 04/09/19 22:30 Antibiotics) sulfamethoxazole Allergy Swelling Verified 04/09/19 22:30 [From Bactrim] trimethoprim [From Bactrim] Allergy Swelling Verified 04/09/19 22:30 Review of Systems ROS Statement: Those systems with pertinent positive or pertinent negative responses have been documented in the HPI. ROS Other: All systems not noted in ROS Statement are negative. Past Medical History Past Medical History: Asthma, Liver Disease Additional Past Medical History / Comment(s): PTSD, chronic migraines, History of Any Multi-Drug Resistant Organisms: MRSA Date of last positivie culture/infection: 2005 MDRO Source:: leg Additional Past Surgical History / Comment(s): forehead reconstruction for head lac as child, Past Psychological History: Bipolar, Depression, PTSD, Schizoaffective Disorder Smoking Status: Former smoker Past Alcohol Use History: Occasional Past Drug Use History: None Reported General Exam Limitations: no limitations General appearance: alert, in no apparent distress Head exam: Present: atraumatic, normocephalic, normal inspection Eye exam: Present: normal appearance, PERRL, EOMI. Absent: scleral icterus, conjunctival injection, periorbital swelling ENT exam: Present: normal exam, normal oropharynx (Uvula midline, tonsillar pillars are symmetric. No evidence for abscess. Minimally erythematous.), mucous membranes moist, TM's normal bilaterally, normal external ear exam Neck exam: Present: normal inspection, full ROM. Absent: tenderness, meningismus, lymphadenopathy Respiratory exam: Present: normal lung sounds bilaterally. Absent: respiratory distress, wheezes, rales, rhonchi, stridor Cardiovascular Exam: Present: regular rate, normal rhythm, normal heart sounds. Absent: systolic murmur, diastolic murmur, rubs, gallop, clicks Neurological exam: Present: alert Course Vital Signs 04/11/19 04/11/19 04/11/19 15:21 16:10 16:19 Temperature 98.2 F Pulse Rate 84 84 80 Respiratory 18 Rate Blood Pressure 132/84 O2 Sat by Pulse 97 Oximetry Medical Decision Making - Medical Decision Making Vitals are stable. Physical exam is unremarkable. Patient does have some diminished lung sounds bilaterally. History of asthma. Patient was given a breathing treatment and does feel much better, states cough is improved. Influenza negative. Strep negative. Patient has mild central peribronchial cuffing could reflec asthma. Otherwise clear lungs. patient will be started on steroid. He has inhaler at home, does not need another. He will follow up with primary care in return here if he has any worsening symptoms. - Lab Data Lab Results 04/11/19 04/11/19 Range/Units 15:27 15:27 Influenza Type A RNA Not Detected (Not Detectd) Influenza Type B (PCR) Not Detected (Not Detectd) Group A Strep Rapid Negative (Negative) Disposition Clinical Impression: Cough Disposition: HOME SELF-CARE Condition: Good Instructions (If sedation given, give patient instructions): Upper Respiratory Infection (ED) Additional Instructions: Please follow up with primary care in 1-2 days. Please return to the emergency department if you have any worsening symptoms. Take steroid as directed. Prescriptions: predniSONE 50 mg PO DAILY #5 tablet Is patient prescribed a controlled substance at d/c from ED?: No Referrals: Marycarmen Gaston MD [Primary Care Provider] - 1-2 days Time of Disposition: 17:58
[2019-04-11 18:36] VITALS: BP 145/72; PULSE 76; TEMP 98.1
== END 2019-04-11 18:10 | disposition home or self-care (01) ==
LOC: EC 15:20
DX: R05 Cough (principal); Z79.899 Other long term (current) drug therapy; Z87.09 Personal history of other diseases of the respiratory system; Z87.891 Personal history of nicotine dependence; Z88.2 Allergy status to sulfonamides; Z88.1 Allergy status to other antibiotic agents; Z79.51 Long term (current) use of inhaled steroids; Z86.14 Personal history of Methicillin resistant Staphylococcus aureus infection
CPT/HCPCS: 94640; 87081; 87430; 87502; 71046; 99284; J7512

== ENCOUNTER 2019-04-14 03:53 | Emergency (ER) | payer OTHER ==
[2019-04-14 04:06] VITALS: BP 130/81; PULSE 90; RESP 24; TEMP 97.8
--- NOTE | 2019-04-14 05:10 | XR ---
EXAMINATION TYPE: XR chest 2V DATE OF EXAM: 04/14/2019 COMPARISON: April 11, 2019 HISTORY: Cough TECHNIQUE: FINDINGS: Heart and mediastinum are normal. Lungs are clear. Diaphragm is normal. Bony thorax appears normal. IMPRESSION: Normal chest. No change.
--- NOTE | 2019-04-14 05:14 | ED ---
URI HPI - General Chief Complaint: Upper Respiratory Infection Stated Complaint: Upper Resp Time Seen by Provider: 04/14/19 04:34 Source: patient, family Mode of arrival: ambulatory Limitations: no limitations - History of Present Illness Initial Comments: This patient is a 29-year-old man who presents to have evaluation for a constellation of symptoms that have been going on for number days now. He complains of frequent cough, with occasional white to yellow sputum. He complains of having burning chest pain when he coughs. He also has been having some congestion, feeling hot and cold. He was seen here for the same symptoms 2 days ago but states she has not had any improvement. MD Complaint: cough -: days(s) Quality: burning Consistency: other (With cough) Associated Symptoms: cough, shortness of breath Treatments Prior to Arrival: none - Related Data Home Medications Medication Instructions Recorded Confirmed Budesonide-Formot 160-4.5 Mcg 2 puff INHALATION RT-BID 03/26/16 11/13/18 [Symbicort 160-4.5 Mcg Inhaler] Cholecalciferol [Vitamin D3] 1,000 unit PO DAILY 03/26/16 11/13/18 Albuterol Inhaler [Ventolin Hfa 2 puff INHALATION RT-Q6H PRN 01/28/18 11/13/18 Inhaler] Loratadine [Claritin] 10 mg PO DAILY 01/28/18 11/13/18 Montelukast [Singulair] 10 mg PO DAILY 01/28/18 11/13/18 Previous Rx's Medication Instructions Recorded Amoxicillin/Potassium Clav 1 tab PO Q12HR #20 tab 11/29/18 [Augmentin 875-125 Tablet] Amoxicillin/Potassium Clav 1 each PO Q12HR #14 tab 12/06/18 [Augmentin 875-125 Tablet] Amoxicillin/Potassium Clav 1 each PO Q12HR 7 Days #14 tab 12/06/18 [Augmentin 875-125 Tablet] predniSONE 50 mg PO DAILY #5 tablet 04/11/19 Albuterol Inhaler [Ventolin Hfa 1 - 2 puff INHALATION Q6HR PRN #1 04/14/19 Inhaler] inhaler Promethazine 6.25MG/5Ml [Phenergan 5 ml PO Q4HR PRN #120 ml 04/14/19 Syrup] predniSONE 60 mg PO DAILY #30 tab 04/14/19 Allergies Allergy/AdvReac Type Severity Reaction Status Date / Time Sulfa (Sulfonamide Allergy Swelling Verified 04/14/19 04:06 Antibiotics) sulfamethoxazole Allergy Swelling Verified 04/14/19 04:06 [From Bactrim] trimethoprim [From Bactrim] Allergy Swelling Verified 04/14/19 04:06 Review of Systems ROS Statement: Those systems with pertinent positive or pertinent negative responses have been documented in the HPI. ROS Other: All systems not noted in ROS Statement are negative. Constitutional: Denies: fever, chills ENT: Reports: throat pain, congestion Respiratory: Reports: cough, dyspnea, wheezes Cardiovascular: Reports: as per HPI, chest pain. Denies: palpitations, orthopnea, edema, syncope Gastrointestinal: Denies: abdominal pain, vomiting, diarrhea Genitourinary: Denies: dysuria, hematuria Musculoskeletal: Denies: back pain Skin: Denies: rash Neurological: Denies: headache Past Medical History Past Medical History: Asthma, Liver Disease Additional Past Medical History / Comment(s): PTSD, chronic migraines, History of Any Multi-Drug Resistant Organisms: MRSA Date of last positivie culture/infection: 2005 MDRO Source:: leg Additional Past Surgical History / Comment(s): forehead reconstruction for head lac as child, Past Psychological History: Bipolar, Depression, PTSD, Schizoaffective Disorder Smoking Status: Former smoker Past Alcohol Use History: Occasional Past Drug Use History: Marijuana General Exam Limitations: no limitations General appearance: alert, in no apparent distress Head exam: Present: atraumatic, normocephalic Eye exam: Present: normal appearance. Absent: scleral icterus, conjunctival injection ENT exam: Present: normal oropharynx, mucous membranes moist, TM's normal bilaterally Neck exam: Present: normal inspection, full ROM, lymphadenopathy. Absent: meningismus Respiratory exam: Present: wheezes (Trace expiratory wheeze). Absent: respiratory distress, rales, rhonchi, stridor, chest wall tenderness Cardiovascular Exam: Present: regular rate, normal rhythm, normal heart sounds. Absent: systolic murmur, diastolic murmur, rubs, gallop GI/Abdominal exam: Present: soft. Absent: tenderness, guarding, rebound Extremities exam: Present: normal inspection, normal capillary refill. Absent: pedal edema, calf tenderness Back exam: Absent: CVA tenderness (R), CVA tenderness (L) Neurological exam: Present: alert Skin exam: Present: warm, dry, intact, normal color. Absent: rash Course Vital Signs 04/14/19 04:02 Temperature 97.8 F Pulse Rate 90 Respiratory 24 Rate Blood Pressure 130/81 O2 Sat by Pulse 98 Oximetry Disposition Clinical Impression: Bronchitis Disposition: HOME SELF-CARE Condition: Good Instructions (If sedation given, give patient instructions): Acute Bronchitis (ED) Prescriptions: Promethazine 6.25MG/5Ml [Phenergan Syrup] 5 ml PO Q4HR PRN #120 ml PRN Reason: Cough predniSONE 60 mg PO DAILY #30 tab Albuterol Inhaler [Ventolin Hfa Inhaler] 1 - 2 puff INHALATION Q6HR PRN #1 inhaler PRN Reason: Wheezing Is patient prescribed a controlled substance at d/c from ED?: No Referrals: Marycarmen Gaston MD [Primary Care Provider] - 1-2 days
== END 2019-04-14 05:31 | disposition home or self-care (01) ==
LOC: EC 03:53
DX: J40 Bronchitis, not specified as acute or chronic (principal); Z79.51 Long term (current) use of inhaled steroids; Z79.899 Other long term (current) drug therapy; Z88.2 Allergy status to sulfonamides; Z88.1 Allergy status to other antibiotic agents; Z87.891 Personal history of nicotine dependence; Z86.14 Personal history of Methicillin resistant Staphylococcus aureus infection; Z87.09 Personal history of other diseases of the respiratory system
CPT/HCPCS: 71046; 99283

== ENCOUNTER 2019-05-08 21:12 | Emergency (ER) | payer OTHER ==
[2019-05-08] MEDS ORDERED: SODIUM CHLORIDE 0.9% 1,000 ML IV STA (21:35)
--- NOTE | 2019-05-08 21:53 | XR ---
EXAMINATION TYPE: XR hand complete RT DATE OF EXAM: 05/08/2019 CLINICAL HISTORY: Pain. TECHNIQUE: Frontal, lateral and oblique images of the right hand are obtained. COMPARISON: Right hand x-ray February 10, 2019. FINDINGS: There is no acute fracture/dislocation evident in the right hand. The joint spaces in the right hand appear within normal limits. The overlying soft tissue appears unremarkable. IMPRESSION: Unremarkable study. No significant change from prior.
[2019-05-08] MEDS ORDERED: KETOROLAC 30 MG/ML 1 ML VIAL IVP STA (22:26)
[2019-05-08] MEDS ORDERED: ONDANSETRON 4 MG/2 ML VIAL IVP STA (22:26)
--- NOTE | 2019-05-08 22:59 | CT ---
EXAMINATION TYPE: CT abdomen pelvis w con DATE OF EXAM: 05/08/2019 COMPARISON: None HISTORY: abdominal pain, nausea, vomiting. hx of liver disease. CT DLP: 2405 mGycm Automated exposure control for dose reduction was used. CONTRAST: Performed with IV Contrast, patient injected with 100 mL of Isovue 300. Lung bases are clear of consolidation. There is no pleural effusion. There is extensive fatty infiltr ation of the liver. Heart size is normal. There is no pericardial effusion. Spleen is intact. There i s no pancreatic mass. The bile ducts are not dilated. Gallbladder is contracted. There is no adrenal mass. Stomach is intact. Kidneys show satisfactory contrast opacification. There is no hydronephrosis. There is no retroperitoneal adenopathy. Bladder distends smoothly. There is no free fluid in the pelvis. There is no inguinal hernia. There is no mesenteric edema. Appendix appears normal. There is broad-based umbilical hernia that con tains fat. There is no evidence of a bowel obstruction. There is no ascites or free air. Lumbar spine is intact. There is small posterior disc bulging at L4-5. There is no compression fractu re. Bony pelvis appears intact. IMPRESSION: Fatty infiltration of the liver. No dilated ducts.
[2019-05-08 23:05] LABS: Basophils % (A) 1 %; Eosinophils # (A) 0.2 k/uL (0-0.7); Eosinophils % (A) 3 %; HCT 45.9 % (39.0-53.0); HGB 14.9 gm/dL (13.0-17.5); Lymphocytes # (A) 2.1 k/uL (1.0-4.8); Lymphocytes % (A) 32 %; MCH 27.7 pg (25.0-35.0); MCHC 32.4 g/dL (31.0-37.0); MCV 85.5 fL (80.0-100.0); Monocytes # (A) 0.5 k/uL (0-1.0); Monocytes % (A) 8 %; Neutrophils # (A) 3.5 k/uL (1.3-7.7); Neutrophils % (A) 55 %; Platelet Count 272 k/uL (150-450); RBC 5.37 m/uL (4.30-5.90); RDW 12.6 % (11.5-15.5); WBC 6.5 k/uL (3.8-10.6)
[2019-05-08 23:09] LABS: ALT 107 U/L (4-49); AST 73 U/L (17-59); African American GFR (CKD) >90 (>60 ml/min/1.73 sqM); Albumin 4.9 g/dL (3.5-5.0); Alkaline Phosphatase 67 U/L (38-126); Amylase 53 U/L (30-110); Anion Gap 8 mmol/L; Blood Urea Nitrogen 14 mg/dL (9-20); Calcium 9.7 mg/dL (8.4-10.2); Carbon Dioxide 27 mmol/L (22-30); Chloride 102 mmol/L (98-107); Glucose 108 mg/dL (74-99); Non-African American GFR(CKD) >90 (>60 ml/min/1.73 sqM); Potassium 4.4 mmol/L (3.5-5.1); Sodium 137 mmol/L (137-145); Total Bilirubin 0.4 mg/dL (0.2-1.3); Total Protein 7.9 g/dL (6.3-8.2)
[2019-05-08 23:16] LABS: Appearance,Urine Clear (Clear); Bilirubin,Urine Negative (Negative); Blood,Urine Negative (Negative); Color,Urine Yellow; Glucose,Urine (UA) Negative (Negative); Ketones,Urine Negative (Negative); Leukocyte Esterase,Urine Trace (Negative); Mucus,Urine Few /hpf; Nitrite,Urine Negative (Negative); PH, Urine 5.5 (5.0-8.0); Protein,Urine 1+ (Negative); RBC,Urine 1 /hpf (0-5); Specific Gravity,Urine 1.025 (1.001-1.035); Urobilinogen,Urine <2.0 mg/dL (<2.0); WBC,Urine 11 /hpf (0-5)
--- NOTE | 2019-05-08 23:22 | ED ---
General Adult HPI - General Chief complaint: Nausea/Vomiting/Diarrhea Stated complaint: Nausea/Chills/Rt Hand Injury Time Seen by Provider: 05/08/19 21:23 Source: patient, RN notes reviewed Mode of arrival: ambulatory Limitations: no limitations - History of Present Illness Initial comments: 29-year-old male with a past medical history of asthma, liver disease, PTSD, migraines presents to the emergency department for a chief complaint of abdominal pain. Patient states he has had right-sided abdominal pain worsen the lower abdomen for the past day. States he was having nausea vomiting earlier today as well. He does not have fevers or chills. He denies diarrhea. Patient denies any abdominal surgeries. He denies alleviating or aggravating fac tors.Patient has no other complaints at this time including shortness of breath, chest pain, headache, or visual changes. - Related Data Home Medications Medication Instructions Recorded Confirmed Budesonide-Formot 160-4.5 Mcg 2 puff INHALATION RT-BID 03/26/16 11/13/18 [Symbicort 160-4.5 Mcg Inhaler] Cholecalciferol [Vitamin D3] 1,000 unit PO DAILY 03/26/16 11/13/18 Albuterol Inhaler [Ventolin Hfa 2 puff INHALATION RT-Q6H PRN 01/28/18 11/13/18 Inhaler] Loratadine [Claritin] 10 mg PO DAILY 01/28/18 11/13/18 Montelukast [Singulair] 10 mg PO DAILY 01/28/18 11/13/18 Previous Rx's Medication Instructions Recorded Amoxicillin/Potassium Clav 1 tab PO Q12HR #20 tab 11/29/18 [Augmentin 875-125 Tablet] Amoxicillin/Potassium Clav 1 each PO Q12HR #14 tab 12/06/18 [Augmentin 875-125 Tablet] Amoxicillin/Potassium Clav 1 each PO Q12HR 7 Days #14 tab 12/06/18 [Augmentin 875-125 Tablet] predniSONE 50 mg PO DAILY #5 tablet 04/11/19 Albuterol Inhaler [Ventolin Hfa 1 - 2 puff INHALATION Q6HR PRN #1 04/14/19 Inhaler] inhaler Promethazine 6.25MG/5Ml [Phenergan 5 ml PO Q4HR PRN #120 ml 04/14/19 Syrup] predniSONE 60 mg PO DAILY #30 tab 04/14/19 Ondansetron [Zofran ODT] 4 mg PO Q8HR PRN #15 tab 05/08/19 Allergies Allergy/AdvReac Type Severity Reaction Status Date / Time diphenhydramine Allergy Confusion Verified 05/08/19 21:20 [From Benadryl] Sulfa (Sulfonamide Allergy Swelling Verified 04/14/19 04:06 Antibiotics) sulfamethoxazole Allergy Swelling Verified 04/14/19 04:06 [From Bactrim] trimethoprim [From Bactrim] Allergy Swelling Verified 04/14/19 04:06 Review of Systems ROS Statement: Those systems with pertinent positive or pertinent negative responses have been documented in the HPI. ROS Other: All systems not noted in ROS Statement are negative. Past Medical History Past Medical History: Asthma, Liver Disease Additional Past Medical History / Comment(s): PTSD, chronic migraines, History of Any Multi-Drug Resistant Organisms: MRSA Date of last positivie culture/infection: 2005 MDRO Source:: leg Additional Past Surgical History / Comment(s): forehead reconstruction for head lac as child, Past Psychological History: Bipolar, Depression, PTSD, Schizoaffective Disorder Smoking Status: Former smoker Past Alcohol Use History: Occasional Past Drug Use History: Marijuana General Exam Limitations: no limitations General appearance: alert, in no apparent distress Head exam: Present: atraumatic, normocephalic, normal inspection Eye exam: Present: normal appearance, PERRL, EOMI. Absent: scleral icterus, conjunctival injection, periorbital swelling ENT exam: Present: normal exam, mucous membranes moist Neck exam: Present: normal inspection, full ROM. Absent: tenderness, meningismus, lymphadenopathy Respiratory exam: Present: normal lung sounds bilaterally. Absent: respiratory distress, wheezes, rales, rhonchi, stridor Cardiovascular Exam: Present: regular rate, normal rhythm, normal heart sounds. Absent: systolic murmur, diastolic murmur, rubs, gallop, clicks GI/Abdominal exam: Present: soft, tenderness (Right lower quadrant tenderness. No significant right upper quadrant tenderness, negative Ewing sign, no left abdominal tenderness.), normal bowel sounds. Absent: distended, guarding, rebound, rigid Expanded GI/Abdominal exam: Absent: heel tap sign Back exam: Absent: CVA tenderness (R), CVA tenderness (L) Neurological exam: Present: alert Course Vital Signs 05/08/19 21:17 Temperature 98.9 F Pulse Rate 79 Respiratory 18 Rate Blood Pressure 125/81 O2 Sat by Pulse 98 Oximetry Medical Decision Making - Medical Decision Making HPI physical exam is documented. CBC CMP unremarkable. There is transaminitis however this is noted to be chronic. CT abdomen and pelvis was ordered to evaluate for appendicitis. This showed fatty rotation of the liver without dilated ducts. Appendix appears normal. Urine does have 11 white blood cells. This will be cultured. Gonorrhea and chlamydia and Trichomonas pending. X-ray of the right hand was also obtained. Neurovascular status was intact in the right hand however patient did have tenderness over the fourth and fifth metacarpal heads. No evidence for trauma. No edema or lacerations. X-ray of the right hand was unremarkable. No acute fracture or dislocation evident. I do not have a high suspicion for occult fracture. Patient was reevaluated and feeling much better at this time. He'll be discharged to follow-up with primary care. He will return here if he has any worsening symptoms. Patient requesting work note.I discussed this case with attending Dr. Lnada who agrees with this assessment and treatment plan. - Lab Data Result diagrams: 05/08/19 22:22 05/08/19 22:22 Lab Results 05/08/19 05/08/19 05/08/19 Range/Units 22:22 22:22 22:58 WBC 6.5 (3.8-10.6) k/uL RBC 5.37 (4.30-5.90) m/uL Hgb 14.9 (13.0-17.5) gm/dL Hct 45.9 (39.0-53.0) % MCV 85.5 (80.0-100.0) fL MCH 27.7 (25.0-35.0) pg MCHC 32.4 (31.0-37.0) g/dL RDW 12.6 (11.5-15.5) % Plt Count 272 (150-450) k/uL Neutrophils % 55 % Lymphocytes % 32 % Monocytes % 8 % Eosinophils % 3 % Basophils % 1 % Neutrophils # 3.5 (1.3-7.7) k/uL Lymphocytes # 2.1 (1.0-4.8) k/uL Monocytes # 0.5 (0-1.0) k/uL Eosinophils # 0.2 (0-0.7) k/uL Basophils # 0.0 (0-0.2) k/uL Sodium 137 (137-145) mmol/L Potassium 4.4 (3.5-5.1) mmol/L Chloride 102 (98-107) mmol/L Carbon Dioxide 27 (22-30) mmol/L Anion Gap 8 mmol/L BUN 14 (9-20) mg/dL Creatinine 0.84 (0.66-1.25) mg/dL Est GFR (CKD-EPI)AfAm >90 (>60 ml/min/1.73 sqM) Est GFR (CKD-EPI)NonAf >90 (>60 ml/min/1.73 sqM) Glucose 108 H (74-99) mg/dL Calcium 9.7 (8.4-10.2) mg/dL Total Bilirubin 0.4 (0.2-1.3) mg/dL AST 73 H (17-59) U/L ALT 107 H (4-49) U/L Alkaline Phosphatase 67 (38-126) U/L Total Protein 7.9 (6.3-8.2) g/dL Albumin 4.9 (3.5-5.0) g/dL Amylase 53 (30-110) U/L Lipase 167 (23-300) U/L Urine Color Yellow Urine Appearance Clear (Clear) Urine pH 5.5 (5.0-8.0) Ur Specific [place] 1.025 (1.001-1.035) Urine Protein 1+ H (Negative) Urine Glucose (UA) Negative (Negative) Urine Ketones Negative (Negative) Urine Blood Negative (Negative) Urine Nitrite Negative (Negative) Urine Bilirubin Negative (Negative) Urine Urobilinogen <2.0 (<2.0) mg/dL Ur Leukocyte Esterase Trace H (Negative) Urine RBC 1 (0-5) /hpf Urine WBC 11 H (0-5) /hpf Urine Mucus Few H (None) /hpf Disposition Clinical Impression: Abdominal pain, Nausea and vomiting Disposition: HOME SELF-CARE Condition: Good Instructions (If sedation given, give patient instructions): Acute Nausea and Vomiting (ED), Abdominal Pain (ED) Additional Instructions: Please take Zofran as needed for nausea. Please follow-up with primary care in 1-2 days. Return here to the emergency department if you have any worsening symptoms. Prescriptions: Ondansetron [Zofran ODT] 4 mg PO Q8HR PRN #15 tab PRN Reason: Nausea Is patient prescribed a controlled substance at d/c from ED?: No Referrals: Marycarmen Gaston MD [Primary Care Provider] - 1-2 days Time of Disposition: 23:22
[2019-05-08 23:45] VITALS: BP 124/77; PULSE 72; RESP 16; TEMP 98
[2019-05-11 13:55] LABS: C. trachomatis,PCR Negative (Neg,Equiv); Chlamydia trachomatis Source Urine; N. gonorrhoeae,PCR Negative (Neg,Equiv); Neisseria Source Urine
== END 2019-05-08 23:44 | disposition home or self-care (01) ==
LOC: EC 21:12
DX: R10.30 Lower abdominal pain, unspecified (principal); R11.2 Nausea with vomiting, unspecified; R74.0 Nonspecific elevation of levels of transaminase and lactic acid dehydrogenase [LDH]; K76.0 Fatty (change of) liver, not elsewhere classified; J45.909 Unspecified asthma, uncomplicated; Z79.51 Long term (current) use of inhaled steroids; Z79.899 Other long term (current) drug therapy; Z88.1 Allergy status to other antibiotic agents; Z88.2 Allergy status to sulfonamides; Z88.8 Allergy status to other drugs, medicaments and biological substances; Z87.891 Personal history of nicotine dependence
CPT/HCPCS: 36415; 80053; 82150; 83690; 85025; 81001; 87491; 87591; 87086; 87661; 73130; 74177; 99284; 96374; 96375; 96361; J2405; J1885; Q9967

== ENCOUNTER 2019-05-15 13:20 | Emergency (ER) | payer OTHER ==
[2019-05-15 13:37] VITALS: TEMP 98.1
[2019-05-15] MEDS ORDERED: METOCLOPRAMIDE 5 MG/ML 2 ML VIAL IVP STA (14:25)
[2019-05-15] MEDS ORDERED: SODIUM CHLORIDE 0.9% 1,000 ML IV STA (14:25)
[2019-05-15] MEDS ORDERED: KETOROLAC 30 MG/ML 1 ML VIAL IVP STA (14:25)
[2019-05-15] MEDS: diphenhydrAMINE 50 MG/ML 1 ML VIAL IVP STA ×2 (14:34→14:37)
--- NOTE | 2019-05-15 15:55 | ED ---
Headache HPI - General Chief Complaint: Headache Stated Complaint: migraine/blurry vision Time Seen by Provider: 05/15/19 14:01 Source: RN notes reviewed, old records reviewed Mode of arrival: ambulatory Limitations: no limitations - History of Present Illness Initial Comments: 29 year old male with migraine headache for 1 day, reports pain and blurry v ision on R eye. Patient reports similiar to previous migraine. Reports taking tylenol today with no relief. Patient denies weakness or deficits. Patient has no chest pain, shortness of breath. Denies nausea or vomiting. Patient reports that he has no other complaints. - Related Data Home Medications Medication Instructions Recorded Confirmed Budesonide-Formot 160-4.5 Mcg 2 puff INHALATION RT-BID 03/26/16 11/13/18 [Symbicort 160-4.5 Mcg Inhaler] Cholecalciferol [Vitamin D3] 1,000 unit PO DAILY 03/26/16 11/13/18 Albuterol Inhaler [Ventolin Hfa 2 puff INHALATION RT-Q6H PRN 01/28/18 11/13/18 Inhaler] Loratadine [Claritin] 10 mg PO DAILY 01/28/18 11/13/18 Montelukast [Singulair] 10 mg PO DAILY 01/28/18 11/13/18 Previous Rx's Medication Instructions Recorded Amoxicillin/Potassium Clav 1 tab PO Q12HR #20 tab 11/29/18 [Augmentin 875-125 Tablet] Amoxicillin/Potassium Clav 1 each PO Q12HR #14 tab 12/06/18 [Augmentin 875-125 Tablet] Amoxicillin/Potassium Clav 1 each PO Q12HR 7 Days #14 tab 12/06/18 [Augmentin 875-125 Tablet] predniSONE 50 mg PO DAILY #5 tablet 04/11/19 Albuterol Inhaler [Ventolin Hfa 1 - 2 puff INHALATION Q6HR PRN #1 04/14/19 Inhaler] inhaler Promethazine 6.25MG/5Ml [Phenergan 5 ml PO Q4HR PRN #120 ml 04/14/19 Syrup] predniSONE 60 mg PO DAILY #30 tab 04/14/19 Ondansetron [Zofran ODT] 4 mg PO Q8HR PRN #15 tab 05/08/19 Allergies Allergy/AdvReac Type Severity Reaction Status Date / Time diphenhydramine Allergy Confusion Verified 05/15/19 13:37 [From Benadryl] Sulfa (Sulfonamide Allergy Swelling Verified 05/15/19 13:37 Antibiotics) sulfamethoxazole Allergy Swelling Verified 05/15/19 13:37 [From Bactrim] trimethoprim [From Bactrim] Allergy Swelling Verified 05/15/19 13:37 Review of Systems ROS Statement: Those systems with pertinent positive or pertinent negative responses have been documented in the HPI. ROS Other: All systems not noted in ROS Statement are negative. Past Medical History Past Medical History: Asthma, Liver Disease Additional Past Medical History / Comment(s): PTSD, chronic migraines, History of Any Multi-Drug Resistant Organisms: MRSA Date of last positivie culture/infection: 2005 MDRO Source:: leg Additional Past Surgical History / Comment(s): forehead reconstruction for head lac as child, Past Psychological History: Bipolar, Depression, PTSD, Schizoaffective Disorder Smoking Status: Former smoker Past Alcohol Use History: Occasional Past Drug Use History: Marijuana General Exam - General Exam Comments Initial Comments: 29 year old male, no distress. Limitations: no limitations General appearance: alert, in no apparent distress Head exam: Present: atraumatic, normocephalic, normal inspection Eye exam: Present: normal appearance, PERRL, EOMI. Absent: scleral icterus, conjunctival injection, periorbital swelling ENT exam: Present: normal exam, mucous membranes moist Neck exam: Present: normal inspection. Absent: tenderness, meningismus, lymphadenopathy Respiratory exam: Present: normal lung sounds bilaterally. Absent: respiratory distress, wheezes, rales, rhonchi, stridor Cardiovascular Exam: Present: regular rate, normal rhythm, normal heart sounds. Absent: systolic murmur, diastolic murmur, rubs, gallop, clicks GI/Abdominal exam: Present: soft, normal bowel sounds. Absent: distended, tenderness, guarding, rebound, rigid Extremities exam: Present: normal inspection, full ROM, normal capillary refill. Absent: tenderness, pedal edema, joint swelling, calf tenderness Back exam: Present: normal inspection Neurological exam: Present: alert, oriented X3, CN II-XII intact Psychiatric exam: Present: normal affect, normal mood Skin exam: Present: warm, dry, intact, normal color. Absent: rash Course Vital Signs 05/15/19 05/15/19 13:35 16:07 Temperature 98.1 F Pulse Rate 89 78 Respiratory 20 16 Rate Blood Pressure 126/78 136/83 O2 Sat by Pulse 98 98 Oximetry Medical Decision Making - Medical Decision Making 29 year old male presents with migraine headache, worse behind R eye and intermittent blurred vision. Patient has no neurodeficits. Patient given migraine cocktail and reports relief of hysi symptoms. Patient advisedtofollow up with PCP and return parameters discussed. Disposition Clinical Impression: Migraine Disposition: HOME SELF-CARE Condition: Good Instructions (If sedation given, give patient instructions): Acute Headache (ED) Additional Instructions: Patient advised to alternate between to Motrin Tylenol. Follow-up with her primary care physician or possible neurology for persistent headache. Return to emergency department if any alarming signs or symptoms occur. Is patient prescribed a controlled substance at d/c from ED?: No Referrals: Marycarmen Gaston MD [Primary Care Provider] - 1-2 days Time of Disposition: 15:55
[2019-05-15 16:08] VITALS: BP 136/83; PULSE 78; RESP 16
== END 2019-05-15 16:08 | disposition home or self-care (01) ==
LOC: EC 13:20
DX: G43.909 Migraine, unspecified, not intractable, without status migrainosus (principal); J45.909 Unspecified asthma, uncomplicated; Z87.891 Personal history of nicotine dependence; Z88.2 Allergy status to sulfonamides; Z88.8 Allergy status to other drugs, medicaments and biological substances; Z79.51 Long term (current) use of inhaled steroids; Z79.899 Other long term (current) drug therapy; Z86.14 Personal history of Methicillin resistant Staphylococcus aureus infection; Z53.20 Procedure and treatment not carried out because of patient's decision for unspecified reasons
CPT/HCPCS: 99283; 96374; 96375; 96361; J2765; J1885

== ENCOUNTER 2019-05-18 14:42 | Emergency (ER) | payer OTHER ==
[2019-05-18 14:46] VITALS: BP 147/77; PULSE 95; RESP 20; TEMP 97.7
[2019-05-18] MEDS ORDERED: KETOROLAC 60 MG/2 ML VIAL IM STA (15:09)
[2019-05-18] MEDS ORDERED: ORPHENADRINE 30 MG/ML 2 ML VIAL IM STA (15:09)
--- NOTE | 2019-05-18 15:16 | ED ---
Back Pain HPI - General Chief Complaint: Back Pain/Injury Stated Complaint: lower back pain Time Seen by Provider: 05/18/19 15:03 Source: patient, RN notes reviewed, old records reviewed Limitations: no limitations - History of Present Illness Initial Comments: Patient is a pleasant 29-year-old male presents emergency Department staff with lower back strain after kicking a portion of his car door yesterday afternoon. Patient denies any fall or trauma to the back. He states these headaches are chronic back problems since that time. Patient states he's had no loss of bowel or bladder control. He denies any fevers or chills. Patient states that he's had no chest pain returns breath or abdominal pain. He didn't take Tylenol last night. - Related Data Home Medications Medication Instructions Recorded Confirmed Budesonide-Formot 160-4.5 Mcg 2 puff INHALATION RT-BID 03/26/16 11/13/18 [Symbicort 160-4.5 Mcg Inhaler] Cholecalciferol [Vitamin D3] 1,000 unit PO DAILY 03/26/16 11/13/18 Albuterol Inhaler [Ventolin Hfa 2 puff INHALATION RT-Q6H PRN 01/28/18 11/13/18 Inhaler] Loratadine [Claritin] 10 mg PO DAILY 01/28/18 11/13/18 Montelukast [Singulair] 10 mg PO DAILY 01/28/18 11/13/18 Previous Rx's Medication Instructions Recorded Amoxicillin/Potassium Clav 1 tab PO Q12HR #20 tab 11/29/18 [Augmentin 875-125 Tablet] Amoxicillin/Potassium Clav 1 each PO Q12HR #14 tab 12/06/18 [Augmentin 875-125 Tablet] Amoxicillin/Potassium Clav 1 each PO Q12HR 7 Days #14 tab 12/06/18 [Augmentin 875-125 Tablet] predniSONE 50 mg PO DAILY #5 tablet 04/11/19 Albuterol Inhaler [Ventolin Hfa 1 - 2 puff INHALATION Q6HR PRN #1 04/14/19 Inhaler] inhaler Promethazine 6.25MG/5Ml [Phenergan 5 ml PO Q4HR PRN #120 ml 04/14/19 Syrup] predniSONE 60 mg PO DAILY #30 tab 04/14/19 Ondansetron [Zofran ODT] 4 mg PO Q8HR PRN #15 tab 05/08/19 Cyclobenzaprine [Flexeril] 10 mg PO TID #12 tab 05/18/19 Ibuprofen [Motrin] 600 mg PO Q6HR PRN #20 tab 05/18/19 Allergies Allergy/AdvReac Type Severity Reaction Status Date / Time diphenhydramine Allergy Confusion Verified 05/18/19 14:46 [From Benadryl] Sulfa (Sulfonamide Allergy Swelling Verified 05/18/19 14:46 Antibiotics) sulfamethoxazole Allergy Swelling Verified 05/18/19 14:46 [From Bactrim] trimethoprim [From Bactrim] Allergy Swelling Verified 05/18/19 14:46 Review of Systems ROS Statement: Those systems with pertinent positive or pertinent negative responses have been documented in the HPI. ROS Other: All systems not noted in ROS Statement are negative. Past Medical History Past Medical History: Asthma, Liver Disease Additional Past Medical History / Comment(s): PTSD, chronic migraines, History of Any Multi-Drug Resistant Organisms: MRSA Date of last positivie culture/infection: 2005 MDRO Source:: leg Additional Past Surgical History / Comment(s): forehead reconstruction for head lac as child, Past Psychological History: Bipolar, Depression, PTSD, Schizoaffective Disorder Smoking Status: Former smoker Past Alcohol Use History: Occasional Past Drug Use History: Marijuana General Exam - General Exam Comments Initial Comments: Pleasant 29-year-old male. Alert and oriented 3. Patient appearsin distress. Limitations: no limitations General appearance: alert, in no apparent distress Head exam: Present: atraumatic, normocephalic, normal inspection Eye exam: Present: normal appearance, PERRL, EOMI. Absent: scleral icterus, conjunctival injection, periorbital swelling ENT exam: Present: normal exam, mucous membranes moist Neck exam: Present: normal inspection. Absent: tenderness, meningismus, lymphadenopathy Respiratory exam: Present: normal lung sounds bilaterally. Absent: respiratory distress, wheezes, rales, rhonchi, stridor Cardiovascular Exam: Present: regular rate, normal rhythm, normal heart sounds. Absent: systolic murmur, diastolic murmur, rubs, gallop, clicks GI/Abdominal exam: Present: soft, normal bowel sounds. Absent: distended, tenderness, guarding, rebound, rigid Extremities exam: Present: normal inspection, full ROM, normal capillary refill, other (Patient has tenderness over the left lumbar paraspinal muscles. No specific spinal tenderness. Resting comfortably in bed.). Absent: tenderness, pedal edema, joint swelling, calf tenderness Back exam: Present: normal inspection Neurological exam: Present: alert, oriented X3, CN II-XII intact Psychiatric exam: Present: normal affect, normal mood Course Vital Signs 05/18/19 14:43 Temperature 97.7 F Pulse Rate 95 Respiratory 20 Rate Blood Pressure 147/77 O2 Sat by Pulse 98 Oximetry Medical Decision Making - Medical Decision Making 29-year-old male presents emergency today with back spasm after kicking his car door yesterday. He notes no fall or trauma to the back. Patient relates that he's had no saddle anesthesias. Patient reports that since history of chronic back troubles. Patient states that he's had no other significant complaints this time. Patient was given IM Toradol and Norflex and several symptoms. Discussed treatment at this time with anti-inflammatory medication. Discussed return parameters. Disposition Clinical Impression: Low back strain Disposition: HOME SELF-CARE Condition: Good Instructions (If sedation given, give patient instructions): Acute Low Back Pain (ED) Additional Instructions: Patient advised to apply warm and cool compresses to lower back to help with muscle inflammation. Follow-up with your primary care physician of symptoms continue to persist. Alternate between Motrin for pain Tylenol, and use muscle relaxers as prescribed. Return to the emergency department if any alarming signs or symptoms occur. Prescriptions: Cyclobenzaprine [Flexeril] 10 mg PO TID #12 tab Ibuprofen [Motrin] 600 mg PO Q6HR PRN #20 tab PRN Reason: Pain Is patient prescribed a controlled substance at d/c from ED?: No Referrals: Marycarmen Gaston MD [Primary Care Provider] - 1-2 days Time of Disposition: 15:14
== END 2019-05-18 15:38 | disposition home or self-care (01) ==
LOC: EC 14:42
DX: S39.012A Strain of muscle, fascia and tendon of lower back, initial encounter (principal); J45.909 Unspecified asthma, uncomplicated; Z79.51 Long term (current) use of inhaled steroids; Z79.899 Other long term (current) drug therapy; Z88.8 Allergy status to other drugs, medicaments and biological substances; Z88.2 Allergy status to sulfonamides; Z88.1 Allergy status to other antibiotic agents; Z86.14 Personal history of Methicillin resistant Staphylococcus aureus infection; Z87.891 Personal history of nicotine dependence; W22.8XXA Striking against or struck by other objects, initial encounter; Y93.89 Activity, other specified; Y92.009 Unspecified place in unspecified non-institutional (private) residence as the place of occurrence of the external cause
CPT/HCPCS: 99283; 96372 ×2; J2360; J1885

== ENCOUNTER 2019-08-05 21:36 | Emergency (ER) | payer OTHER ==
[2019-08-05 21:46] VITALS: BP 114/80; PULSE 87; RESP 18; TEMP 98.1
--- NOTE | 2019-08-05 22:27 | XR ---
EXAMINATION TYPE: XR hand complete RT DATE OF EXAM: 08/05/2019 COMPARISON: NONE HISTORY: 02/10/2019 TECHNIQUE: 3 views FINDINGS: Metacarpals appear intact. I see no fracture nor dislocation. Joint spaces are normal. The little finger appears intact. IMPRESSION: Negative right hand exam. No change.
--- NOTE | 2019-08-05 22:35 | ED ---
Upper Extremity HPI - General Chief Complaint: Extremity Injury, Upper Stated Complaint: Right hand injury Time Seen by Provider: 08/05/19 22:01 Source: patient Mode of arrival: ambulatory Limitations: no limitations - History of Present Illness Initial Comments: 29yo male presenting today for cc of right pinky pain. Hit object with it yesterday when mad. Denies punching another humans mouth. Denies laceration. Dneies limited ROM, admit to swelling. Patient appears well on arrival. No other complaints. - Related Data Home Medications Medication Instructions Recorded Confirmed Budesonide-Formot 160-4.5 Mcg 2 puff INHALATION RT-BID 03/26/16 11/13/18 [Symbicort 160-4.5 Mcg Inhaler] Cholecalciferol [Vitamin D3] 1,000 unit PO DAILY 03/26/16 11/13/18 Albuterol Inhaler (Mhu) [Ventolin 2 puff INHALATION RT-Q6H PRN 01/28/18 11/13/18 Hfa Inhaler] Loratadine [Claritin] 10 mg PO DAILY 01/28/18 11/13/18 Montelukast [Singulair] 10 mg PO DAILY 01/28/18 11/13/18 Previous Rx's Medication Instructions Recorded Amoxicillin/Potassium Clav 1 tab PO Q12HR #20 tab 11/29/18 [Augmentin 875-125 Tablet] Amoxicillin/Potassium Clav 1 each PO Q12HR #14 tab 12/06/18 [Augmentin 875-125 Tablet] Amoxicillin/Potassium Clav 1 each PO Q12HR 7 Days #14 tab 12/06/18 [Augmentin 875-125 Tablet] predniSONE 50 mg PO DAILY #5 tablet 04/11/19 Albuterol Inhaler (Mhu) [Ventolin 1 - 2 puff INHALATION Q6HR PRN #1 04/14/19 Hfa Inhaler (Mhu)] inhaler Promethazine 6.25MG/5Ml [Phenergan 5 ml PO Q4HR PRN #120 ml 04/14/19 Syrup] predniSONE 60 mg PO DAILY #30 tab 04/14/19 Ondansetron [Zofran ODT] 4 mg PO Q8HR PRN #15 tab 05/08/19 Cyclobenzaprine [Flexeril] 10 mg PO TID #12 tab 05/18/19 Ibuprofen [Motrin] 600 mg PO Q6HR PRN #20 tab 05/18/19 Allergies Allergy/AdvReac Type Severity Reaction Status Date / Time diphenhydramine Allergy Confusion Verified 08/05/19 21:45 [From Benadryl] Sulfa (Sulfonamide Allergy Swelling Verified 08/05/19 21:45 Antibiotics) sulfamethoxazole Allergy Swelling Verified 08/05/19 21:45 [From Bactrim] trimethoprim [From Bactrim] Allergy Swelling Verified 08/05/19 21:45 Review of Systems ROS Statement: Those systems with pertinent positive or pertinent negative responses have been documented in the HPI. ROS Other: All systems not noted in ROS Statement are negative. Past Medical History Past Medical History: Asthma, Liver Disease Additional Past Medical History / Comment(s): PTSD, chronic migraines, History of Any Multi-Drug Resistant Organisms: MRSA Date of last positivie culture/infection: 2005 MDRO Source:: leg Additional Past Surgical History / Comment(s): forehead reconstruction for head lac as child, Past Psychological History: Bipolar, Depression, PTSD, Schizoaffective Disorder Smoking Status: Former smoker Past Alcohol Use History: Occasional Past Drug Use History: Marijuana General Exam - General Exam Comments Initial Comments: General: The patient is awake and alert, in no distress, and does not appear acutely ill. Eye: Pupils are equal, round and reactive to light, extra-ocular movements are intact. No nystagmus. There is normal conjunctiva bilaterally. No signs of icterus. Cardiovascular: There is a regular rate and rhythm. No murmur, rub or gallop is appreciated. Respiratory: Lungs are clear to auscultation, respirations are non-labored, breath sounds are equal. No wheezes, stridor, rales, or rhonchi. Musculoskeletal: Normal ROM, tenderness at DIP nad PIP joitn with ROm but not limited. Strength 5/5 MCP, DIP and PIP joints. Sensation intact. Radial pulses equal bilaterally 2+. No schaphoid or wrist pain. No elbow or shoulder pain. Neurological: A&O x 3. CN II-XII intact, There are no obvious motor or sensory deficits. Coordination appears grossly intact. Speech is normal. Skin: Skin is warm and dry and no rashes or lesions are noted. Psychiatric: Cooperative, appropriate mood & affect, normal judgment. Limitations: no limitations Course Vital Signs 08/05/19 21:39 Temperature 98.1 F Pulse Rate 87 Respiratory 18 Rate Blood Pressure 114/80 O2 Sat by Pulse 97 Oximetry Medical Decision Making - Medical Decision Making XR (-). NO scaphoid tenderness. N/v intact. No other complaints. d/c with [facility] instruction. Disposition Clinical Impression: Injury of right little finger Disposition: HOME SELF-CARE Condition: Good Instructions (If sedation given, give patient instructions): Finger Sprain (ED) Additional Instructions: Please use medication as discussed. Please follow-up with family doctor in the next 2 days. Please return to emergency room if the symptoms increase or worsen or for any other concerns. Is patient prescribed a controlled substance at d/c from ED?: No Referrals: Marycarmen Gaston MD [Primary Care Provider] - 1-2 days Time of Disposition: 22:35
== END 2019-08-05 22:56 | disposition home or self-care (01) ==
LOC: EC 21:36
DX: S69.81XA Other specified injuries of right wrist, hand and finger(s), initial encounter (principal); J45.909 Unspecified asthma, uncomplicated; Z79.51 Long term (current) use of inhaled steroids; Z79.899 Other long term (current) drug therapy; Z88.8 Allergy status to other drugs, medicaments and biological substances; Z88.2 Allergy status to sulfonamides; Z88.1 Allergy status to other antibiotic agents; Z86.14 Personal history of Methicillin resistant Staphylococcus aureus infection; Z87.891 Personal history of nicotine dependence; W22.8XXA Striking against or struck by other objects, initial encounter; Y93.89 Activity, other specified; Y92.009 Unspecified place in unspecified non-institutional (private) residence as the place of occurrence of the external cause
CPT/HCPCS: 99283

== ENCOUNTER 2019-08-21 22:31 | Emergency (ER) | payer OTHER ==
[2019-08-21 22:38] VITALS: BP 142/92; PULSE 90; RESP 18; TEMP 98.1
--- NOTE | 2019-08-22 00:02 | ED ---
General Adult HPI - General Chief complaint: Abdominal Pain Stated complaint: Abd pain Time Seen by Provider: 08/21/19 23:02 Source: patient, RN notes reviewed, old records reviewed Mode of arrival: ambulatory Limitations: no limitations - History of Present Illness Initial comments: 29-year-old male patient presents to ED for evaluation of an umbilical hernia. Patient reports he has an umbilical hernia and for the last 2 weeks and having some pain mostly range of motion. Denies any other complaints at this time. Denies any current pain. Systemic: Pt denies fatigue, fever/chills, rash. Pt denies weakness, night sweats, weight loss. Neuro: Pt denies headache, visual disturbances, syncope or pre-syncope. HEENT: Pt denies ocular discharge or irritation, otalgia, rhinorrhea, pharyngitis or notable lymphadenopathy. Cardiopulmonary: Pt denies chest pain, SOB, heart palpitations, dyspnea on exertion. Abdominal/GI: Pt denies n/v/d. : Pt denies dysuria, burning w/ urination, frequency/urgency. Denies new onset urinary or bowel incontinence. MSK: Pt denies myalgia, loss of strength or function in extremities. Neuro: Pt denies new onset weakness, paresthesias. - Related Data Home Medications Medication Instructions Recorded Confirmed Budesonide-Formot 160-4.5 Mcg 2 puff INHALATION RT-BID 03/26/16 11/13/18 [Symbicort 160-4.5 Mcg Inhaler] Cholecalciferol [Vitamin D3] 1,000 unit PO DAILY 03/26/16 11/13/18 Albuterol Inhaler (Mhu) [Ventolin 2 puff INHALATION RT-Q6H PRN 01/28/18 11/13/18 Hfa Inhaler] Loratadine [Claritin] 10 mg PO DAILY 01/28/18 11/13/18 Montelukast [Singulair] 10 mg PO DAILY 01/28/18 11/13/18 Previous Rx's Medication Instructions Recorded Amoxicillin/Potassium Clav 1 tab PO Q12HR #20 tab 11/29/18 [Augmentin 875-125 Tablet] Amoxicillin/Potassium Clav 1 each PO Q12HR #14 tab 12/06/18 [Augmentin 875-125 Tablet] Amoxicillin/Potassium Clav 1 each PO Q12HR 7 Days #14 tab 12/06/18 [Augmentin 875-125 Tablet] predniSONE 50 mg PO DAILY #5 tablet 04/11/19 Albuterol Inhaler (Mhu) [Ventolin 1 - 2 puff INHALATION Q6HR PRN #1 04/14/19 Hfa Inhaler (Mhu)] inhaler Promethazine 6.25MG/5Ml [Phenergan 5 ml PO Q4HR PRN #120 ml 04/14/19 Syrup] predniSONE 60 mg PO DAILY #30 tab 04/14/19 Ondansetron [Zofran ODT] 4 mg PO Q8HR PRN #15 tab 05/08/19 Cyclobenzaprine [Flexeril] 10 mg PO TID #12 tab 05/18/19 Ibuprofen [Motrin] 600 mg PO Q6HR PRN #20 tab 05/18/19 Allergies Allergy/AdvReac Type Severity Reaction Status Date / Time diphenhydramine Allergy Confusion Verified 08/05/19 21:45 [From Benadryl] Sulfa (Sulfonamide Allergy Swelling Verified 08/05/19 21:45 Antibiotics) sulfamethoxazole Allergy Swelling Verified 08/05/19 21:45 [From Bactrim] trimethoprim [From Bactrim] Allergy Swelling Verified 08/05/19 21:45 Review of Systems ROS Statement: Those systems with pertinent positive or pertinent negative responses have been documented in the HPI. ROS Other: All systems not noted in ROS Statement are negative. Past Medical History Past Medical History: Asthma, Liver Disease Additional Past Medical History / Comment(s): PTSD, chronic migraines, History of Any Multi-Drug Resistant Organisms: MRSA Date of last positivie culture/infection: 2005 MDRO Source:: leg Additional Past Surgical History / Comment(s): forehead reconstruction for head lac as child, Past Psychological History: Bipolar, Depression, PTSD, Schizoaffective Disorder Smoking Status: Former smoker Past Alcohol Use History: Occasional Past Drug Use History: Marijuana General Exam - General Exam Comments Initial Comments: Constitutional: NAD, AOX3, Pt has pleasant affect. HEENT: NC/AT, trachea midline. External ears appear normal, without discharge. Mucous membranes moist. EOM intact. There is no scleral icterus. No pallor noted. Cardiopulmonary: RRR, no murmurs, rubs or gallops, no JVD noted. Lungs CTAB in anterior and posterior [place]. No peripheral edema. Abdominal exam: Abdomen soft and non-distended. Abdomen non-tender to palpation in all 4 quadrants. Small umbilical hernia is noted and is soft and reducible. Bowel sounds active in LLQ. No hepatosplenomegaly. No ecchymosis Neuro: CN II-XII grossly intact. No nuchal rigidity. No raccon eyes, no renae sign. MSK: Full active ROM in upper and lower extremities, 5/5 stregnth. Limitations: no limitations Course Vital Signs 08/21/19 22:35 Temperature 98.1 F Pulse Rate 90 Respiratory 18 Rate Blood Pressure 142/92 O2 Sat by Pulse 97 Oximetry Medical Decision Making - Medical Decision Making 29-year-old male patient presents to ED for evaluation of an umbilical hernia. Patient reports he has an umbilical hernia and for the last 2 weeks and having some pain mostly range of motion. Denies any other complaints at this time. Denies any current pain. Patient vital signs are stable, afebrile. Physical exam is displayed nontender abdomen. Soft reducible hernia umbilical is noted. I did review the patient's prior CAT scan from April which displayed his a broad-based umbilical hernia containing fat. Patient will be discharged will follow up with primary care provider and general surgeon. We'll return to ER if condition worsens. Case discussed with Dr. Lincoln. Disposition Clinical Impression: Umbilical hernia Disposition: HOME SELF-CARE Condition: Stable Instructions (If sedation given, give patient instructions): Umbilical Hernia (ED) Additional Instructions: Follow-up with primary care provider general surgeon tomorrow. Return to ER if condition worsens in any way. Recommend limiting strenuous physical exertion. Is patient prescribed a controlled substance at d/c from ED?: No Referrals: Marycarmen Gaston MD [Primary Care Provider] - 1-2 days Lachelle Azul MD [STAFF PHYSICIAN] - 1-2 days
== END 2019-08-22 00:12 | disposition home or self-care (01) ==
LOC: EC 22:31
DX: K42.9 Umbilical hernia without obstruction or gangrene (principal); J45.909 Unspecified asthma, uncomplicated; Z86.14 Personal history of Methicillin resistant Staphylococcus aureus infection; Z87.891 Personal history of nicotine dependence; Z79.51 Long term (current) use of inhaled steroids; Z79.899 Other long term (current) drug therapy; Z88.8 Allergy status to other drugs, medicaments and biological substances; Z88.2 Allergy status to sulfonamides
CPT/HCPCS: 99284

== ENCOUNTER 2019-09-01 15:15 | Emergency (ER) | payer OTHER ==
[2019-09-01 15:24] VITALS: BP 116/76; PULSE 93; RESP 18; TEMP 98.4
[2019-09-01] MEDS ORDERED: ACETAMINOPHEN TAB 325 MG TAB PO STA (15:36)
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
--- NOTE | 2019-09-01 15:52 | XR ---
EXAMINATION TYPE: XR shoulder complete LT DATE OF EXAM: 09/01/2019 COMPARISON: NONE HISTORY: Pain TECHNIQUE: Three views are submitted. FINDINGS: The osseous structures are intact. There is no acute fracture or dislocation. The AC joint is maint ained. Small focal area of sclerosis involving the humeral head IMPRESSION: 1. No acute process.
--- NOTE | 2019-09-01 15:54 | XR ---
EXAMINATION TYPE: XR chest 1V DATE OF EXAM: 09/01/2019 COMPARISON: NONE HISTORY: Pain TECHNIQUE: Single frontal view of the chest is obtained. FINDINGS: No pleural effusion or pneumothorax. There is an area of increased density overlying the l eft clavicle and posterior margin left seventh rib. Difficult to determine if this is related to the lung. Could be superficial artifact. Shoulder x-ray demonstrates no abnormal density in this level. IMPRESSION: 1. Increased asymmetric density overlying the left lung apex as discussed above. This does not appear to be present on the shoulder x-ray. This could be superficial and represent artifact. Repeat apical lordotic view of the chest could BE obtained.
== END 2019-09-01 16:18 | disposition home or self-care (01) ==
LOC: EC 15:15
DX: S40.012A Contusion of left shoulder, initial encounter (principal); J45.909 Unspecified asthma, uncomplicated; Z79.51 Long term (current) use of inhaled steroids; Z88.2 Allergy status to sulfonamides; Z88.8 Allergy status to other drugs, medicaments and biological substances; Z87.891 Personal history of nicotine dependence; Z86.14 Personal history of Methicillin resistant Staphylococcus aureus infection; V43.52XA Car driver injured in collision with other type car in traffic accident, initial encounter; Y93.89 Activity, other specified; Y92.410 Unspecified street and highway as the place of occurrence of the external cause
CPT/HCPCS: 71045; 99284

== ENCOUNTER 2019-09-08 20:35 | Emergency (ER) | payer OTHER ==
[2019-09-08 20:40] VITALS: BP 109/67; PULSE 100; RESP 16; TEMP 98.4
--- NOTE | 2019-09-08 21:14 | XR ---
EXAMINATION TYPE: XR tibia fibula RT DATE OF EXAM: 09/08/2019 COMPARISON: NONE HISTORY: Pain TECHNIQUE: 4 views FINDINGS: Tibia and fibula appear intact. I see no fracture nor dislocation. Ankle joint and knee harsh nt appear anatomic. Joint spaces appear normal. IMPRESSION: Negative right tibia and fibula exam.
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
== END 2019-09-08 21:34 | disposition home or self-care (01) ==
LOC: EC 20:35
DX: S80.11XA Contusion of right lower leg, initial encounter (principal); J45.909 Unspecified asthma, uncomplicated; Z79.51 Long term (current) use of inhaled steroids; Z86.14 Personal history of Methicillin resistant Staphylococcus aureus infection; Z88.2 Allergy status to sulfonamides; Z88.8 Allergy status to other drugs, medicaments and biological substances; Z87.891 Personal history of nicotine dependence; W22.8XXA Striking against or struck by other objects, initial encounter
CPT/HCPCS: 99284

== ENCOUNTER 2019-09-11 00:07 | Emergency (ER) | payer OTHER ==
[2019-09-11 00:24] VITALS: RESP 18
--- NOTE | 2019-09-11 00:27 | ED ---
Seizure HPI - General Chief Complaint: Seizure Stated Complaint: Seizure Time Seen by Provider: 09/11/19 00:25 Source: patient, family, EMS Mode of arrival: EMS Limitations: altered mental status (Patient appears to be post ictal) - History of Present Illness MD Complaint: seizure -: minutes(s) Description of Episode: loss of consciousness, tonic-clonic movement -: second(s) Witnessed: yes - by bystander Trauma: No Seizure History: known seizure disorder Place: street/outdoors Possible Precipitating Event: none Associated Symptoms: denies other symptoms - Related Data Home Medications Medication Instructions Recorded Confirmed Budesonide-Formot 160-4.5 Mcg 2 puff INHALATION RT-BID 03/26/16 11/13/18 [Symbicort 160-4.5 Mcg Inhaler] Cholecalciferol [Vitamin D3] 1,000 unit PO DAILY 03/26/16 11/13/18 Albuterol Inhaler (Mhu) [Ventolin 2 puff INHALATION RT-Q6H PRN 01/28/18 11/13/18 Hfa Inhaler] Loratadine [Claritin] 10 mg PO DAILY 01/28/18 11/13/18 Montelukast [Singulair] 10 mg PO DAILY 01/28/18 11/13/18 Previous Rx's Medication Instructions Recorded Amoxicillin/Potassium Clav 1 tab PO Q12HR #20 tab 11/29/18 [Augmentin 875-125 Tablet] Amoxicillin/Potassium Clav 1 each PO Q12HR #14 tab 12/06/18 [Augmentin 875-125 Tablet] Amoxicillin/Potassium Clav 1 each PO Q12HR 7 Days #14 tab 12/06/18 [Augmentin 875-125 Tablet] predniSONE 50 mg PO DAILY #5 tablet 04/11/19 Albuterol Inhaler (Mhu) [Ventolin 1 - 2 puff INHALATION Q6HR PRN #1 04/14/19 Hfa Inhaler (Mhu)] inhaler Promethazine 6.25MG/5Ml [Phenergan 5 ml PO Q4HR PRN #120 ml 04/14/19 Syrup] predniSONE 60 mg PO DAILY #30 tab 04/14/19 Ondansetron [Zofran ODT] 4 mg PO Q8HR PRN #15 tab 05/08/19 Cyclobenzaprine [Flexeril] 10 mg PO TID #12 tab 05/18/19 Ibuprofen [Motrin] 600 mg PO Q6HR PRN #20 tab 05/18/19 Ciprofloxacin HCl [Cipro] 500 mg PO Q12HR #14 tablet 09/11/19 Allergies Allergy/AdvReac Type Severity Reaction Status Date / Time diphenhydramine Allergy Confusion Verified 09/11/19 00:23 [From Benadryl] Sulfa (Sulfonamide Allergy Swelling Verified 09/11/19 00:23 Antibiotics) sulfamethoxazole Allergy Swelling Verified 09/11/19 00:23 [From Bactrim] trimethoprim [From Bactrim] Allergy Swelling Verified 09/11/19 00:23 Review of Systems ROS Statement: Those systems with pertinent positive or pertinent negative responses have been documented in the HPI. ROS Other: All systems not noted in ROS Statement are negative. Limitations: ROS unobtainable due to patients medical condition (Post ictal.) Past Medical History Past Medical History: Asthma, Liver Disease Additional Past Medical History / Comment(s): PTSD, chronic migraines, History of Any Multi-Drug Resistant Organisms: MRSA Date of last positivie culture/infection: 2005 MDRO Source:: leg Past Surgical History: No Surgical Hx Reported Additional Past Surgical History / Comment(s): forehead reconstruction for head lac as child, Past Psychological History: Bipolar, Depression, PTSD, Schizoaffective Disorder Smoking Status: Former smoker Past Alcohol Use History: Occasional Past Drug Use History: Marijuana General Exam Limitations: no limitations General appearance: alert, in no apparent distress Head exam: Present: atraumatic, normocephalic Eye exam: Present: normal appearance, PERRL, EOMI. Absent: scleral icterus, conjunctival injection, nystagmus ENT exam: Present: normal oropharynx Neck exam: Present: normal inspection, full ROM Respiratory exam: Present: normal lung sounds bilaterally. Absent: respiratory distress, wheezes, rales, rhonchi, stridor Cardiovascular Exam: Present: regular rate, normal rhythm, normal heart sounds. Absent: systolic murmur, diastolic murmur, rubs, gallop GI/Abdominal exam: Present: soft. Absent: distended, tenderness, guarding, rebound, rigid, mass Extremities exam: Present: normal inspection, normal capillary refill. Absent: pedal edema, calf tenderness Back exam: Present: normal inspection. Absent: CVA tenderness (R), CVA tenderness (L) Neurological exam: Present: alert, oriented X3, CN II-XII intact. Absent: motor sensory deficit Skin exam: Present: warm, dry, intact, normal color. Absent: rash Course Vital Signs 09/11/19 09/11/19 09/11/19 00:17 03:00 04:15 Temperature 98.8 F 97.9 F Pulse Rate 106 H 89 77 Respiratory 18 18 18 Rate Blood Pressure 152/85 152/85 139/89 O2 Sat by Pulse 96 97 97 Oximetry Medical Decision Making - Medical Decision Making This patient is a 29-year-old man brought to be evaluated for generalized tonic- clonic seizure. On arrival, the patient is not able to provide any history, but he did return to his baseline and was feeling well and wanted to go home. He has previously had seizure activity, and will follow-up with neurology. Discussed appropriate follow-up as well as return parameters. - Lab Data Result diagrams: 09/11/19 00:34 09/11/19 00:34 Lab Results 09/11/19 09/11/19 09/11/19 Range/Units 00:34 00:34 02:22 WBC 8.0 (3.8-10.6) k/uL RBC 4.93 (4.30-5.90) m/uL Hgb 14.6 (13.0-17.5) gm/dL Hct 42.3 (39.0-53.0) % MCV 85.8 (80.0-100.0) fL MCH 29.7 (25.0-35.0) pg MCHC 34.6 (31.0-37.0) g/dL RDW 12.8 (11.5-15.5) % Plt Count 269 (150-450) k/uL Neutrophils % 68 % Lymphocytes % 22 % Monocytes % 7 % Eosinophils % 2 % Basophils % 0 % Neutrophils # 5.4 (1.3-7.7) k/uL Lymphocytes # 1.8 (1.0-4.8) k/uL Monocytes # 0.6 (0-1.0) k/uL Eosinophils # 0.1 (0-0.7) k/uL Basophils # 0.0 (0-0.2) k/uL Sodium 138 (137-145) mmol/L Potassium 4.0 (3.5-5.1) mmol/L Chloride 105 (98-107) mmol/L Carbon Dioxide 23 (22-30) mmol/L Anion Gap 10 mmol/L BUN 13 (9-20) mg/dL Creatinine 0.92 (0.66-1.25) mg/dL Est GFR (CKD-EPI)AfAm >90 (>60 ml/min/1.73 sqM) Est GFR (CKD-EPI)NonAf >90 (>60 ml/min/1.73 sqM) Glucose 106 H (74-99) mg/dL Calcium 9.4 (8.4-10.2) mg/dL Total Bilirubin 0.9 (0.2-1.3) mg/dL AST 63 H (17-59) U/L ALT 81 H (4-49) U/L Alkaline Phosphatase 69 (38-126) U/L Total Protein 7.5 (6.3-8.2) g/dL Albumin 4.6 (3.5-5.0) g/dL Urine Color Yellow Urine Appearance Clear (Clear) Urine pH 5.5 (5.0-8.0) Ur Specific [place] 1.027 (1.001-1.035) Urine Protein 1+ H (Negative) Urine Glucose (UA) Negative (Negative) Urine Ketones Trace H (Negative) Urine Blood Negative (Negative) Urine Nitrite Negative (Negative) Urine Bilirubin Negative (Negative) Urine Urobilinogen <2.0 (<2.0) mg/dL Ur Leukocyte Esterase Small H (Negative) Urine RBC 1 (0-5) /hpf Urine WBC 22 H (0-5) /hpf Ur Squamous Epith Cells <1 (0-4) /hpf Hyaline Casts 107 H (0-2) /lpf Urine Mucus Few H (None) /hpf Urine Opiates Screen Not Detected (NotDetected) Ur Oxycodone Screen Not Detected (NotDetected) Urine Methadone Screen Not Detected (NotDetected) Ur Propoxyphene Screen Not Detected (NotDetected) Ur Barbiturates Screen Not Detected (NotDetected) U Tricyclic Antidepress Not Detected (NotDetected) Ur Phencyclidine Scrn Not Detected (NotDetected) Ur Amphetamines Screen Not Detected (NotDetected) U Methamphetamines Scrn Not Detected (NotDetected) U Benzodiazepines Scrn Not Detected (NotDetected) Urine Cocaine Screen Not Detected (NotDetected) U Marijuana (THC) Screen Not Detected (NotDetected) Serum Alcohol <10 mg/dL - EKG Data -: EKG Interpreted by Me EKG shows normal: sinus rhythm, axis (Normal), intervals (Normal), QRS complexes (Normal), ST-T waves (Normal) Rate: tachycardia (Rate 106 bpm) Disposition Clinical Impression: Generalized seizure, Urinary tract infection Disposition: HOME SELF-CARE Condition: Good Instructions (If sedation given, give patient instructions): Recurrent Seizures in Adults (ED) Prescriptions: Ciprofloxacin HCl [Cipro] 500 mg PO Q12HR #14 tablet Is patient prescribed a controlled substance at d/c from ED?: No Referrals: Marycarmen Gaston MD [Primary Care Provider] - 1-2 days Jolie Chappell MD [REFERRING] - 1-2 days
[2019-09-11 00:47] LABS: Basophils % (A) 0 %; Eosinophils # (A) 0.1 k/uL (0-0.7); Eosinophils % (A) 2 %; HCT 42.3 % (39.0-53.0); HGB 14.6 gm/dL (13.0-17.5); Lymphocytes # (A) 1.8 k/uL (1.0-4.8); Lymphocytes % (A) 22 %; MCH 29.7 pg (25.0-35.0); MCHC 34.6 g/dL (31.0-37.0); MCV 85.8 fL (80.0-100.0); Monocytes # (A) 0.6 k/uL (0-1.0); Monocytes % (A) 7 %; Neutrophils # (A) 5.4 k/uL (1.3-7.7); Neutrophils % (A) 68 %; Platelet Count 269 k/uL (150-450); RBC 4.93 m/uL (4.30-5.90); RDW 12.8 % (11.5-15.5)
[2019-09-11] MEDS ORDERED: ACETAMINOPHEN TAB 325 MG TAB PO STA (00:48)
[2019-09-11 00:58] LABS: African American GFR (CKD) >90 (>60 ml/min/1.73 sqM); Albumin 4.6 g/dL (3.5-5.0); Alcohol <10 mg/dL; Anion Gap 10 mmol/L; Calcium 9.4 mg/dL (8.4-10.2); Carbon Dioxide 23 mmol/L (22-30); Chloride 105 mmol/L (98-107); Glucose 106 mg/dL (74-99); Non-African American GFR(CKD) >90 (>60 ml/min/1.73 sqM); Sodium 138 mmol/L (137-145); Total Bilirubin 0.9 mg/dL (0.2-1.3); Total Protein 7.5 g/dL (6.3-8.2)
[2019-09-11 01:01] LABS: ALT 81 U/L (4-49); AST 63 U/L (17-59); Alkaline Phosphatase 69 U/L (38-126); Blood Urea Nitrogen 13 mg/dL (9-20)
--- NOTE | 2019-09-11 01:34 | CT ---
EXAMINATION TYPE: CT brain wo con DATE OF EXAM: 09/11/2019 COMPARISON: 11/13/2018 HISTORY: Seizure CT DLP: 1142.40 mGycm Automated exposure control for dose reduction was used. The ventricles and sulci appear normal. There is no mass effect nor midline shift. There is no sign o f intracranial hemorrhage. Calvarium is intact. There is no evidence of cerebral edema. IMPRESSION: Negative unenhanced head CT scan. No change.
[2019-09-11 02:32] LABS: Appearance,Urine Clear (Clear); Bilirubin,Urine Negative (Negative); Blood,Urine Negative (Negative); Color,Urine Yellow; Glucose,Urine (UA) Negative (Negative); Hyaline Casts,Urine 107 /lpf (0-2); Ketones,Urine Trace (Negative); Leukocyte Esterase,Urine Small (Negative); Mucus,Urine Few /hpf; Nitrite,Urine Negative (Negative); PH, Urine 5.5 (5.0-8.0); Protein,Urine 1+ (Negative); RBC,Urine 1 /hpf (0-5); Specific Gravity,Urine 1.027 (1.001-1.035); Squamous Epithelial Cell,Urine <1 /hpf (0-4); Urobilinogen,Urine <2.0 mg/dL (<2.0); WBC,Urine 22 /hpf (0-5)
[2019-09-11 02:48] LABS: Amphetamine Screen,Urine Not Detected (NotDetected); Barbiturate Screen,Urine Not Detected (NotDetected); Benzodiazepines Screen,Urine Not Detected (NotDetected); Cocaine Screen,Urine Not Detected (NotDetected); Methadone Screen, Urine Not Detected (NotDetected); Opiate Screen,Urine Not Detected (NotDetected); Oxycodone Screen, Urine Not Detected (NotDetected); Phencyclidine Screen,Urine Not Detected (NotDetected); Tricyclic Antidepressant,Urine Not Detected (NotDetected); Urn Cannabinoid Scrn Not Detected (NotDetected)
[2019-09-11 04:35] VITALS: BP 139/89; PULSE 77; TEMP 97.9
== END 2019-09-11 04:15 | disposition home or self-care (01) ==
LOC: EC 00:07
DX: N39.0 Urinary tract infection, site not specified (principal); G40.409 Other generalized epilepsy and epileptic syndromes, not intractable, without status epilepticus; J45.909 Unspecified asthma, uncomplicated; Z79.899 Other long term (current) drug therapy; Z79.51 Long term (current) use of inhaled steroids; Z87.891 Personal history of nicotine dependence; Z88.1 Allergy status to other antibiotic agents; Z88.2 Allergy status to sulfonamides; Z88.8 Allergy status to other drugs, medicaments and biological substances; Z86.14 Personal history of Methicillin resistant Staphylococcus aureus infection
CPT/HCPCS: 36415; 93005; 80053; 85025; 81001; 80306; 70450; 99285; G0480; 80320

== ENCOUNTER 2019-11-18 06:26 | Emergency (ER) | payer OTHER ==
[2019-11-18 06:31] VITALS: TEMP 98.2
[2019-11-18] MEDS ORDERED: SODIUM CHLORIDE 0.9% 500 ML 500 ML IV STA (06:34)
--- NOTE | 2019-11-18 06:36 | ED ---
Seizure HPI - General Chief Complaint: Seizure Stated Complaint: Seizure Time Seen by Provider: 11/18/19 06:28 Source: patient, EMS, RN notes reviewed Mode of arrival: EMS Limitations: no limitations - History of Present Illness Initial Comments: This is a 29-year-old male presents emergency department via EMS chief complaint of seizure. Patient has a history of seizures does not take any current medications. Patient states that he has not follow-up with a neurologist. Patient reported a seizure outside this morning. Patient family called EMS. Patient had no noted injuries. Patient has no complaints other than mild left- sided rib pain. Patient states he has not seen his PCP recently. Denies any tongue injury. Denies any headache, dizziness, neck pain, nausea vomiting. - Related Data Home Medications Medication Instructions Recorded Confirmed Budesonide-Formot 160-4.5 Mcg 2 puff INHALATION RT-BID 03/26/16 11/13/18 [Symbicort 160-4.5 Mcg Inhaler] Cholecalciferol [Vitamin D3] 1,000 unit PO DAILY 03/26/16 11/13/18 Albuterol Inhaler (Mhu) [Ventolin 2 puff INHALATION RT-Q6H PRN 01/28/18 11/13/18 Hfa Inhaler] Loratadine [Claritin] 10 mg PO DAILY 01/28/18 11/13/18 Montelukast [Singulair] 10 mg PO DAILY 01/28/18 11/13/18 Previous Rx's Medication Instructions Recorded Amoxicillin/Potassium Clav 1 tab PO Q12HR #20 tab 11/29/18 [Augmentin 875-125 Tablet] Amoxicillin/Potassium Clav 1 each PO Q12HR #14 tab 12/06/18 [Augmentin 875-125 Tablet] Amoxicillin/Potassium Clav 1 each PO Q12HR 7 Days #14 tab 12/06/18 [Augmentin 875-125 Tablet] predniSONE 50 mg PO DAILY #5 tablet 04/11/19 Albuterol Inhaler (Mhu) [Ventolin 1 - 2 puff INHALATION Q6HR PRN #1 04/14/19 Hfa Inhaler (Mhu)] inhaler Promethazine 6.25MG/5Ml [Phenergan 5 ml PO Q4HR PRN #120 ml 04/14/19 Syrup] predniSONE 60 mg PO DAILY #30 tab 04/14/19 Ondansetron [Zofran ODT] 4 mg PO Q8HR PRN #15 tab 05/08/19 Cyclobenzaprine [Flexeril] 10 mg PO TID #12 tab 05/18/19 Ibuprofen [Motrin] 600 mg PO Q6HR PRN #20 tab 05/18/19 Ciprofloxacin HCl [Cipro] 500 mg PO Q12HR #14 tablet 09/11/19 Allergies Allergy/AdvReac Type Severity Reaction Status Date / Time diphenhydramine Allergy Confusion Verified 09/11/19 00:23 [From Benadryl] Sulfa (Sulfonamide Allergy Swelling Verified 09/11/19 00:23 Antibiotics) sulfamethoxazole Allergy Swelling Verified 09/11/19 00:23 [From Bactrim] trimethoprim [From Bactrim] Allergy Swelling Verified 09/11/19 00:23 Review of Systems ROS Statement: Those systems with pertinent positive or pertinent negative responses have been documented in the HPI. ROS Other: All systems not noted in ROS Statement are negative. Past Medical History Past Medical History: Asthma, Liver Disease Additional Past Medical History / Comment(s): PTSD, chronic migraines, History of Any Multi-Drug Resistant Organisms: MRSA Date of last positivie culture/infection: 2005 MDRO Source:: leg Past Surgical History: No Surgical Hx Reported Additional Past Surgical History / Comment(s): forehead reconstruction for head lac as child, Past Psychological History: Bipolar, Depression, PTSD, Schizoaffective Disorder Smoking Status: Never smoker Past Alcohol Use History: Occasional Past Drug Use History: Marijuana General Exam Limitations: no limitations General appearance: alert, in no apparent distress Head exam: Present: atraumatic, normocephalic, normal inspection Eye exam: Present: normal appearance, PERRL, EOMI. Absent: scleral icterus, conjunctival injection, periorbital swelling ENT exam: Present: normal exam, normal oropharynx, mucous membranes moist Neck exam: Present: normal inspection, full ROM. Absent: tenderness, meningismus, lymphadenopathy Respiratory exam: Present: normal lung sounds bilaterally, chest wall tenderness. Absent: respiratory distress, wheezes, rales, rhonchi, stridor Cardiovascular Exam: Present: regular rate, normal rhythm, normal heart sounds. Absent: systolic murmur, diastolic murmur, rubs, gallop, clicks GI/Abdominal exam: Present: soft, normal bowel sounds. Absent: distended, tenderness, guarding, rebound, rigid Neurological exam: Present: alert, oriented X3, CN II-XII intact, reflexes normal. Absent: motor sensory deficit Skin exam: Present: warm, dry, intact, normal color. Absent: rash Course Vital Signs 11/18/19 06:28 Temperature 98.2 F Pulse Rate 77 Respiratory 18 Rate Blood Pressure 123/78 O2 Sat by Pulse 96 Oximetry Medical Decision Making - Medical Decision Making 29-year-old male presented for seizure. Patient has a history of seizures labs unremarkable. Patient instructed that he needs to follow with neurologist and PCP for medications has not been on many medications. Patient instructed that he cannot drive he should avoid going up ladders or been in elevated areas for concern of falling. Patient we discharged in stable condition return parameters were discussed. - Lab Data Result diagrams: 11/18/19 06:37 11/18/19 06:37 Lab Results 11/18/19 11/18/19 11/18/19 Range/Units 06:37 06:37 06:47 WBC 6.0 (3.8-10.6) k/uL RBC 5.05 (4.30-5.90) m/uL Hgb 14.1 (13.0-17.5) gm/dL Hct 43.8 (39.0-53.0) % MCV 86.7 (80.0-100.0) fL MCH 28.0 (25.0-35.0) pg MCHC 32.3 (31.0-37.0) g/dL RDW 12.9 (11.5-15.5) % Plt Count 255 (150-450) k/uL Neutrophils % 54 % Lymphocytes % 33 % Monocytes % 8 % Eosinophils % 2 % Basophils % 1 % Neutrophils # 3.2 (1.3-7.7) k/uL Lymphocytes # 2.0 (1.0-4.8) k/uL Monocytes # 0.5 (0-1.0) k/uL Eosinophils # 0.1 (0-0.7) k/uL Basophils # 0.1 (0-0.2) k/uL Sodium 141 (137-145) mmol/L Potassium 4.2 (3.5-5.1) mmol/L Chloride 105 (98-107) mmol/L Carbon Dioxide 27 (22-30) mmol/L Anion Gap 9 mmol/L BUN 17 (9-20) mg/dL Creatinine 0.98 (0.66-1.25) mg/dL Est GFR (CKD-EPI)AfAm >90 (>60 ml/min/1.73 sqM) Est GFR (CKD-EPI)NonAf >90 (>60 ml/min/1.73 sqM) Glucose 99 (74-99) mg/dL POC Glucose (mg/dL) 113 H (75-99) mg/dL POC Glu Hide Dyer Christine Wilhelm Calcium 9.3 (8.4-10.2) mg/dL Total Bilirubin 0.4 (0.2-1.3) mg/dL AST 45 (17-59) U/L ALT 83 H (4-49) U/L Alkaline Phosphatase 61 (38-126) U/L Total Protein 7.2 (6.3-8.2) g/dL Albumin 4.5 (3.5-5.0) g/dL Disposition Clinical Impression: Generalized seizure Disposition: HOME SELF-CARE Condition: Stable Instructions (If sedation given, give patient instructions): Recurrent Seizures in Adults (ED) Additional Instructions: Please return to the Emergency Department if symptoms worsen or any other concerns. Is patient prescribed a controlled substance at d/c from ED?: No Referrals: Marycarmen Gaston MD [Primary Care Provider] - 1-2 days Kim Dukes MD [Medical Doctor] - 1-2 days Salvatore Dominique DO [STAFF PHYSICIAN] - 1-2 days Vivian Chappell MD [REFERRING] - 1-2 days Time of Disposition: 07:54
[2019-11-18 07:07] LABS: Glucose,Whole Blood 113 mg/dL (75-99)
[2019-11-18 07:16] LABS: Basophils # (A) 0.1 k/uL (0-0.2); Basophils % (A) 1 %; Eosinophils # (A) 0.1 k/uL (0-0.7); Eosinophils % (A) 2 %; HCT 43.8 % (39.0-53.0); HGB 14.1 gm/dL (13.0-17.5); Lymphocytes % (A) 33 %; MCHC 32.3 g/dL (31.0-37.0); MCV 86.7 fL (80.0-100.0); Mean Platelet Volume 6.9; Monocytes # (A) 0.5 k/uL (0-1.0); Monocytes % (A) 8 %; Neutrophils # (A) 3.2 k/uL (1.3-7.7); Neutrophils % (A) 54 %; Platelet Count 255 k/uL (150-450); RBC 5.05 m/uL (4.30-5.90); RDW 12.9 % (11.5-15.5)
--- NOTE | 2019-11-18 07:28 | XR ---
EXAMINATION TYPE: XR chest 2V DATE OF EXAM: 11/18/2019 COMPARISON: 09/01/2019 HISTORY: 29-year-old male seizure, pain TECHNIQUE: AP and lateral views FINDINGS: Heart borderline in size, likely in large part projectional due to portable AP technique. Under diffu se interstitial prominence may be technical. Allowing for large patient body habitus and secondary un derpenetration, no definite consolidation or pleural effusion. IMPRESSION: Borderline heart size likely projectional. Interstitial prominence also likely technical in the absen ce of any symptoms of fluid overload state or acute infectious respiratory symptoms. No focal infiltr ate seen.
[2019-11-18 07:40] LABS: ALT 83 U/L (4-49); AST 45 U/L (17-59); African American GFR (CKD) >90 (>60 ml/min/1.73 sqM); Albumin 4.5 g/dL (3.5-5.0); Alkaline Phosphatase 61 U/L (38-126); Anion Gap 9 mmol/L; Blood Urea Nitrogen 17 mg/dL (9-20); Calcium 9.3 mg/dL (8.4-10.2); Carbon Dioxide 27 mmol/L (22-30); Chloride 105 mmol/L (98-107); Glucose 99 mg/dL (74-99); Non-African American GFR(CKD) >90 (>60 ml/min/1.73 sqM); Potassium 4.2 mmol/L (3.5-5.1); Sodium 141 mmol/L (137-145); Total Bilirubin 0.4 mg/dL (0.2-1.3); Total Protein 7.2 g/dL (6.3-8.2)
[2019-11-18 08:13] VITALS: BP 110/65; PULSE 75; RESP 16
== END 2019-11-18 08:13 | disposition home or self-care (01) ==
LOC: EC 06:26
DX: R56.9 Unspecified convulsions (principal); J45.909 Unspecified asthma, uncomplicated; Z79.899 Other long term (current) drug therapy; Z79.51 Long term (current) use of inhaled steroids; Z88.2 Allergy status to sulfonamides; Z88.1 Allergy status to other antibiotic agents; Z88.6 Allergy status to analgesic agent
CPT/HCPCS: 36415; 71046; 80053; 85025; 93005; 96360; 99284

== ENCOUNTER 2019-12-29 23:36 | Emergency (ER) | payer OTHER ==
--- NOTE | 2019-12-30 00:07 | ED ---
General Adult HPI - General Chief complaint: Back Pain/Injury Stated complaint: Back Pain Time Seen by Provider: 12/29/19 23:55 Source: patient Mode of arrival: ambulatory Limitations: no limitations - History of Present Illness Initial comments: This patient is a 29-year-old man who presents to be evaluated for right rib pain. The pain is been present for a couple of days now. He states that it is aching, constant, but it does get worse with movement or palpation. Patient states that he may have had a minor injury is not entirely certain. He denies any associated symptoms. There has been no fever or chills, cough or dyspnea. No hemoptysis. No leg pain or swelling. Patient has not had tachycardia or palpitations. -: days(s) Location: chest, right Radiation: non-radiation Quality: aching Consistency: constant Improves with: none Worsens with: movement Associated Symptoms: denies other symptoms Treatments Prior to Arrival: other (Tylenol) - Related Data Home Medications Medication Instructions Recorded Confirmed Budesonide-Formot 160-4.5 Mcg 2 puff INHALATION RT-BID 03/26/16 11/13/18 [Symbicort 160-4.5 Mcg Inhaler] Cholecalciferol [Vitamin D3] 1,000 unit PO DAILY 03/26/16 11/13/18 Albuterol Inhaler (Mhu) [Ventolin 2 puff INHALATION RT-Q6H PRN 01/28/18 11/13/18 Hfa Inhaler] Loratadine [Claritin] 10 mg PO DAILY 01/28/18 11/13/18 Montelukast [Singulair] 10 mg PO DAILY 01/28/18 11/13/18 Previous Rx's Medication Instructions Recorded Amoxicillin/Potassium Clav 1 tab PO Q12HR #20 tab 11/29/18 [Augmentin 875-125 Tablet] Amoxicillin/Potassium Clav 1 each PO Q12HR #14 tab 12/06/18 [Augmentin 875-125 Tablet] Amoxicillin/Potassium Clav 1 each PO Q12HR 7 Days #14 tab 12/06/18 [Augmentin 875-125 Tablet] predniSONE 50 mg PO DAILY #5 tablet 04/11/19 Albuterol Inhaler (Mhu) [Ventolin 1 - 2 puff INHALATION Q6HR PRN #1 04/14/19 Hfa Inhaler (Mhu)] inhaler Promethazine 6.25MG/5Ml [Phenergan 5 ml PO Q4HR PRN #120 ml 04/14/19 Syrup] predniSONE 60 mg PO DAILY #30 tab 04/14/19 Ondansetron [Zofran ODT] 4 mg PO Q8HR PRN #15 tab 05/08/19 Cyclobenzaprine [Flexeril] 10 mg PO TID #12 tab 05/18/19 Ibuprofen [Motrin] 600 mg PO Q6HR PRN #20 tab 05/18/19 Ciprofloxacin HCl [Cipro] 500 mg PO Q12HR #14 tablet 09/11/19 Ibuprofen 800 mg PO TID #20 tablet 12/30/19 Allergies Allergy/AdvReac Type Severity Reaction Status Date / Time diphenhydramine Allergy Confusion Verified 12/29/19 23:43 [From Benadryl] Sulfa (Sulfonamide Allergy Swelling Verified 12/29/19 23:43 Antibiotics) sulfamethoxazole Allergy Swelling Verified 12/29/19 23:43 [From Bactrim] trimethoprim [From Bactrim] Allergy Swelling Verified 12/29/19 23:43 Review of Systems ROS Statement: Those systems with pertinent positive or pertinent negative responses have been documented in the HPI. ROS Other: All systems not noted in ROS Statement are negative. Constitutional: Denies: fever, chills Respiratory: Denies: cough, dyspnea, hemoptysis Cardiovascular: Reports: as per HPI, chest pain. Denies: palpitations, dyspnea on exertion, orthopnea, edema, syncope Gastrointestinal: Denies: abdominal pain, vomiting Genitourinary: Denies: dysuria, hematuria Musculoskeletal: Denies: back pain Skin: Denies: rash Neurological: Denies: headache, weakness Past Medical History Past Medical History: Asthma, Liver Disease Additional Past Medical History / Comment(s): PTSD, chronic migraines, History of Any Multi-Drug Resistant Organisms: MRSA Date of last positivie culture/infection: 2005 MDRO Source:: leg Past Surgical History: No Surgical Hx Reported Additional Past Surgical History / Comment(s): forehead reconstruction for head lac as child, Past Psychological History: Bipolar, Depression, PTSD, Schizoaffective Disorder Smoking Status: Current every day smoker Past Alcohol Use History: Occasional Past Drug Use History: Marijuana General Exam Limitations: no limitations General appearance: alert, in no apparent distress Head exam: Present: atraumatic, normocephalic Eye exam: Present: normal appearance. Absent: scleral icterus, conjunctival injection Respiratory exam: Present: normal lung sounds bilaterally, chest wall tenderness (Right posterior ribs). Absent: respiratory distress, wheezes, rales, rhonchi, stridor, accessory muscle use Cardiovascular Exam: Present: regular rate, normal rhythm, normal heart sounds. Absent: systolic murmur, diastolic murmur, rubs, gallop GI/Abdominal exam: Absent: tenderness Extremities exam: Present: normal inspection, normal capillary refill. Absent: pedal edema, calf tenderness Back exam: Absent: CVA tenderness (R), CVA tenderness (L), paraspinal tenderness, vertebral tenderness Neurological exam: Present: alert Skin exam: Present: warm, dry, intact, normal color. Absent: rash Course Vital Signs 12/29/19 12/30/19 23:41 00:40 Temperature 99.4 F 98.5 F Pulse Rate 84 82 Respiratory 18 19 Rate Blood Pressure 127/82 126/82 O2 Sat by Pulse 96 98 Oximetry Disposition Clinical Impression: Chest wall pain Disposition: HOME SELF-CARE Condition: Good Instructions (If sedation given, give patient instructions): Chest Wall Pain (ED) Prescriptions: Ibuprofen 800 mg PO TID #20 tablet Is patient prescribed a controlled substance at d/c from ED?: No Referrals: Marycarmen Gaston MD [Primary Care Provider] - 1-2 days
--- NOTE | 2019-12-30 01:03 | XR ---
EXAM: XR Right Ribs and AP Chest, 3 or More Views CLINICAL HISTORY: ITS.REASON XR Reason: injury TECHNIQUE: Frontal and oblique views of the right ribs and frontal view of the chest. COMPARISON: Prior chest x-ray, 11/18/2019 FINDINGS: Lungs: Unremarkable. No consolidation. Pleural space: Unremarkable. No pneumothorax. Heart: Unremarkable. No cardiomegaly. Mediastinum: Unremarkable. Bones/joints: Slight irregularity of the right fourth anterolateral rib, similar to the prior chest x-ray. No evidence of acute fracture. IMPRESSION: 1. No evidence of acute cardiopulmonary disease. 2. Slight irregularity of the right fourth anterolateral rib, similar to the prior. No evidence of acute fracture.
[2019-12-30 01:14] VITALS: PULSE 82
[2019-12-30] MEDS ORDERED: IBUPROFEN 400 MG TAB PO STA (01:17)
[2019-12-30] MEDS ORDERED: HYDROcodone/APAP 5-325MG 1 EACH TAB PO STA (01:17)
[2019-12-30] MEDS ORDERED: ACET/COD 300 MG/30 MG STARTER PACK 6 TAB BTL PO STA (01:23)
[2019-12-30 02:10] VITALS: BP 126/84; RESP 18; TEMP 98
== END 2019-12-30 02:00 | disposition home or self-care (01) ==
LOC: EC 23:36
DX: R07.89 Other chest pain (principal); J45.909 Unspecified asthma, uncomplicated; F17.200 Nicotine dependence, unspecified, uncomplicated; Z79.51 Long term (current) use of inhaled steroids; Z79.899 Other long term (current) drug therapy; Z88.8 Allergy status to other drugs, medicaments and biological substances; Z88.2 Allergy status to sulfonamides; Z88.1 Allergy status to other antibiotic agents; Z86.14 Personal history of Methicillin resistant Staphylococcus aureus infection
CPT/HCPCS: 99283

== ENCOUNTER → 2020-04-22 | Outpatient (CLI) | payer OTHER ==
--- NOTE | 2020-04-22 08:03 | US ---
EXAMINATION TYPE: US abdomen limited DATE OF EXAM: 04/22/2020 COMPARISON: CT CLINICAL HISTORY: R10.33 Periumbilical pain K46.9 abdominal hernia. Periumbilical pain, known perium bilical hernia, pt set up for appointment with surgeon Assess for hernia at location of: Periumbilical area No ultrasound evidence of periumbilical hernia, however previous CT showed fat-containing hernia, v alsalva maneuvers performed IMPRESSION: No sonographic evidence for umbilical hernia this time. Real-time scanning was performed by the repairer engine production utilizing Valsalva and additional dynamic maneuve rs to assess for hernia. Images of the contralateral side were also acquired for direct comparison.
== END | disposition home or self-care (01) ==
LOC: RADUSWWP 07:22
PROVIDERS: ATTEND Family Medicine
DX: K46.9 Unspecified abdominal hernia without obstruction or gangrene (principal)
CPT/HCPCS: 76705

== ENCOUNTER 2020-05-04 06:54 | Day surgery (SDC) | payer OTHER ==
[2020-04-28 15:30] VITALS: BMI 38.5
[~2020-05-04 06:54] MED LIST: ACETAMINOPHEN TAB 500 MG TAB PO PRN; DEXAMETHASONE SOD PHOSPHATE 4 MG/ML 1 ML VIAL IV ONE; HEPARIN SODIUM,PORCINE 5,000 UNIT/ML 1 ML VIAL SQ PRN; LIDOCAINE 1% (10MG/ML) FOR IV START INTRADERMA PRN; ceFAZolin 3 GM in SODIUM CHLORIDE 0.9% 100 ML IVPB PRN
[2020-05-04] MEDS ORDERED: HYDROmorphone 0.5 MG/0.5 ML SYRINGE IVP PRN (07:00)
[2020-05-04] MEDS ORDERED: MIDAZOLAM 2 MG/2 ML VIAL IVP ONE (07:48)
--- NOTE | 2020-05-04 07:58 | P.ANPRN ---
Procedure Note - Anesthesia - Nerve Block Performed Bilateral Rectus Abdominis Single Time Out Performed: Yes ([id number]) Date of Procedure: 05/04/20 Procedure Start Time: 07:49 Procedure Stop Time: 07:59 Indication: Acute Post-Operative Pain, Analgesia, Dx/Pain Location, Requested by Surgeon Specifically requested for management of pain by DrMeghan: Gene Paniagua Sedation Type: Sedate with meaningful contact maintained Preparation: Sterile Prep Position: Supine Catheter: None Needle Types: Pajunk Needle Gauge: 20 Ultrasound used to visualize needle placement: Yes Ultrasound used to observe medication spread: Yes Injectate: 0.5% Ropivacaine (see comment for volume) (15 mL each side (30 mL total)) Blood Aspirated: No Pain Paresthesia on Injection Noted: No Resistance on Injection: Normal Image Stored and Saved: Yes Events: Uneventful and Well Tolerated
[2020-05-04] MEDS: LACTATED RINGERS 1,000 ML IV SCH ×2 (07:59→14:19)
[2020-05-04] MEDS ORDERED: ONDANSETRON 4 MG/2 ML VIAL IVP ONE ×2 (08:00→14:07)
[2020-05-04] MEDS ORDERED: NALOXONE 0.4 MG/ML 1 ML VIAL ONE (09:16)
[2020-05-04] MEDS ORDERED: ROCURONIUM 10 MG/ML (5 ML VIAL) IV ONE (09:16)
[2020-05-04] MEDS ORDERED: HYDROmorphone (PF) 1 MG/ML ONE (09:16)
[2020-05-04] MEDS ORDERED: MIDAZOLAM 2 MG/2 ML VIAL ONE (09:16)
[2020-05-04] MEDS ORDERED: NEOSTIGMINE 1 MG/ML 10 ML VIAL ONE (09:16)
[2020-05-04] MEDS ORDERED: fentaNYL (PF) 50 MCG/ML 2 ML AMP ONE (09:16)
[2020-05-04] MEDS ORDERED: PROPOFOL 10 MG/ML 20 ML VIAL IV ONE (09:16)
[2020-05-04] MEDS ORDERED: ROPIVACAINE 5 MG/ML 30 ML VIAL ONE (09:16)
[2020-05-04] MEDS ORDERED: LIDOCAINE 1% INJ 10MG/ML (20 ML MDV) ONE (09:16)
[2020-05-04] MEDS ORDERED: SUCCINYLCHOLINE CHLORIDE VIAL 200 MG/10 ML VIAL IV ONE (09:16)
[2020-05-04] MEDS ORDERED: GLYCOPYRROLATE 0.2 MG/ML 2 ML VIAL ONE (09:16)
[2020-05-04] MEDS ORDERED: BUPIVACAINE-EPI 0.5%-1:200,000 10 ML VIAL SQ ONE (10:01)
--- NOTE | 2020-05-04 10:46 | P.GSHP ---
History of Present Illness H&P Date: 05/04/20 Chief Complaint: Umbilical hernia This a 30-year-old male who presents today for repair of umbilical hernia. Patient's presents with a tender mass umbilicus. He will undergo laparoscopic robotic-assisted repair. Past Medical History Past Medical History: Asthma, Liver Disease, Seizure Disorder Additional Past Medical History / Comment(s): PTSD, chronic migraines, HX SEIZURES-LAST ONE 11/2019-NOT ON ANY MEDS FOR THEM (PT STATES SEIZURES ARE STRESS INDUCED History of Any Multi-Drug Resistant Organisms: MRSA Date of last positivie culture/infection: 2005 MDRO Source:: leg Past Surgical History: No Surgical Hx Reported Additional Past Surgical History / Comment(s): forehead reconstruction for head lac as child, Past Anesthesia/Blood Transfusion Reactions: No Reported Reaction Smoking Status: Former smoker - Past Family History Father Family Medical History: Cancer Additional Family Medical History / Comment(s): ADOPTED-NOT TOTALLY SURE OF HHX Mother Family Medical History: Cancer Additional Family Medical History / Comment(s): ADOPTED-NOT TOTALLY SURE OF HHX Medications and Allergies Home Medications Medication Instructions Recorded Confirmed Type Cholecalciferol [Vitamin D3] 2,000 unit PO DAILY 03/26/16 05/04/20 History Albuterol Inhaler (Mhu) [Ventolin 2 puff INHALATION RT-Q6H PRN 01/28/18 05/04/20 History Hfa Inhaler] Loratadine [Claritin] 10 mg PO DAILY 01/28/18 05/04/20 History Montelukast [Singulair] 10 mg PO DAILY 01/28/18 05/04/20 History ARIPiprazole [Abilify] 10 mg PO DAILY 04/28/20 05/04/20 History Fluticasone/Salmeterol [Advair 1 inhalation PO BID 04/28/20 05/04/20 History 250-50 Diskus] Allergies Allergy/AdvReac Type Severity Reaction Status Date / Time diphenhydramine Allergy Confusion Verified 05/04/20 07:16 [From Benadryl] Sulfa (Sulfonamide Allergy Swelling Verified 05/04/20 07:16 Antibiotics) sulfamethoxazole Allergy Swelling Verified 05/04/20 07:16 [From Bactrim] trimethoprim [From Bactrim] Allergy Swelling Verified 05/04/20 07:16 Surgical - Exam Vital Signs Temp Pulse Resp BP Pulse Ox 98.3 F 73 18 129/86 98 05/04/20 07:12 05/04/20 07:12 05/04/20 07:12 05/04/20 07:12 05/04/20 07:12 - General well developed, no distress - Eyes PERRL - ENT normal pinna - Neck no masses - Cardiovascular Rhythm: regular - Abdomen Abdomen: soft, non tender Hernia: umbilical Assessment and Plan Assessment: Umbilical hernia. We'll perform laparoscopic robotic-assisted repair.
--- NOTE | 2020-05-04 10:47 | P.OP ---
Date of Procedure: 05/04/20 Preoperative Diagnosis: Umbilical hernia Postoperative Diagnosis: Umbilical hernia Procedure(s) Performed: Laparoscopic robotic repair of umbilical hernia Partial omentectomy Anesthesia: KELSIE Surgeon: Gene Paniagua Pathology: other (Omentum/hernia sac) Condition: stable Disposition: PACU Description of Procedure: The patient was placed on the operating table in the supine position. He received general anesthesia. His abdomen was prepped and draped usual fashion. Using a 5 mm optical trocar under direct visualization the peritoneal cavity was entered in the left upper quadrant. The abdomen was then insufflated. The laparoscope was placed back into the perineal cavity. Next a 8 mm robotic trocar was placed in the left lower quadrant and a 12 mm robotic trocar was placed in the left lateral position. The original 5 mm trocar was exchanged for a 8 mm robotic trocar. The patient's placed in the left side up position. And the patient was undocked the robot. The umbilical hernia was visualized. Using hook cautery the peritoneum over the umbilical hernia was excised. The incarcerated omentum was dissected free and sent to pathology. The fascial opening was repaired using 0V LOC suture. Next a piece of 11 cm round ventral light ST mesh was placed into the. Cavity and secured with 2 OV lock suture. The patient was undocked the robot. The needles were retrieved. The fascia of the 12 mm trocar site was closed with 0 Ethibond suture. Skin was closed interrupted 3-0 Monocryl suture. Dermabond dressings was applied. Patient top procedure well and was sent to recovery room stable condition.
[2020-05-04 10:53] VITALS: TEMP 97.2
[2020-05-04] MEDS ORDERED: LACTATED RINGERS 1,000 ML IV ONE ×2 (11:30)
[2020-05-04] MEDS ORDERED: KETOROLAC 15 MG/ML 1 ML VIAL IVP ONE (13:03)
[2020-05-04] MEDS ORDERED: KETOROLAC 15 MG/ML 1 ML VIAL ONE (13:05)
[2020-05-04] MEDS ORDERED: ONDANSETRON 4 MG/2 ML VIAL ONE (14:05)
[2020-05-04] MEDS ORDERED: ACETAMINOPHEN TAB 325 MG TAB PO ONE (14:15)
[2020-05-04] MEDS ORDERED: ACETAMINOPHEN TAB 325 MG TAB ONE (14:19)
[2020-05-04 14:50] VITALS: PULSE 109
[2020-05-04 15:01] VITALS: BP 129/70; RESP 18
[2020-05-04 15:11] LABS: Glucose,Whole Blood 152 mg/dL (75-99)
== END 2020-05-04 15:25 | disposition home or self-care (01) ==
LOC: OR 06:54
PROVIDERS: ATTEND Surgery
DX: K42.0 Umbilical hernia with obstruction, without gangrene (principal); J45.909 Unspecified asthma, uncomplicated; K76.9 Liver disease, unspecified; F43.10 Post-traumatic stress disorder, unspecified; E66.9 Obesity, unspecified; F31.9 Bipolar disorder, unspecified; Z86.69 Personal history of other diseases of the nervous system and sense organs; Z86.14 Personal history of Methicillin resistant Staphylococcus aureus infection; Z98.890 Other specified postprocedural states; Z87.828 Personal history of other (healed) physical injury and trauma; Z87.891 Personal history of nicotine dependence; Z79.899 Other long term (current) drug therapy; Z79.51 Long term (current) use of inhaled steroids; Z88.8 Allergy status to other drugs, medicaments and biological substances; Z88.2 Allergy status to sulfonamides; Z87.81 Personal history of (healed) traumatic fracture; Z68.39 Body mass index [BMI] 39.0-39.9, adult
CPT/HCPCS: 49653; 64488; 88305; S2900

== ENCOUNTER 2020-05-24 23:13 | Emergency (ER) | payer OTHER ==
[2020-05-24 23:19] VITALS: BP 147/99; PULSE 86; RESP 20; TEMP 98.3
[2020-05-24] MEDS ORDERED: SODIUM CHLORIDE 0.9% 1,000 ML IV STA (23:28)
[2020-05-24] MEDS ORDERED: MORPHINE SULFATE 4 MG/ML SYRINGE IV STA (23:28)
--- NOTE | 2020-05-24 23:31 | ED ---
Abdominal Pain HPI - General Chief Complaint: Abdominal Pain Stated Complaint: Abd pain Time Seen by Provider: 05/24/20 23:26 Source: patient, RN notes reviewed, old records reviewed Mode of arrival: ambulatory Limitations: no limitations - History of Present Illness Initial Comments: This is a 30-year-old male DF for evaluation patient presents today for evaluation of abdominal pain. Patient is vital week plus positive removed from having a hernia repair. Pain is just recently started to get worse in office pain meds for a few days now. Denying any fevers positive nausea no vomiting. Was worse after eating tonight. Patient has no other significant medical history takes no medications again denies fever MD Complaint: abdominal pain (Postoperative) -: days(s) Location: epigastric Radiation: epigastric Migration to: epigastric Severity: moderate Severity scale (1-10): 7 Quality: aching Consistency: constant Improves With: nothing Worsens With: nothing Context: recent surgery/procedure Associated Symptoms: nausea Treatments Prior to Arrival: NSAIDs, prescription analgesics - Related Data Home Medications Medication Instructions Recorded Confirmed Cholecalciferol [Vitamin D3] 2,000 unit PO DAILY 03/26/16 05/04/20 Albuterol Inhaler (Mhu) [Ventolin 2 puff INHALATION RT-Q6H PRN 01/28/18 05/04/20 Hfa Inhaler] Loratadine [Claritin] 10 mg PO DAILY 01/28/18 05/04/20 Montelukast [Singulair] 10 mg PO DAILY 01/28/18 05/04/20 ARIPiprazole [Abilify] 10 mg PO DAILY 04/28/20 05/04/20 Fluticasone/Salmeterol [Advair 1 inhalation PO BID 04/28/20 05/04/20 250-50 Diskus] Previous Rx's Medication Instructions Recorded Acetaminophen Tab [Tylenol] 650 mg PO Q6H #30 tab 05/04/20 Docusate [Colace] 100 mg PO BID #20 capsule 05/04/20 Ibuprofen [Motrin] 600 mg PO Q6HR PRN #40 tab 05/04/20 oxyCODONE HCL [OxyIR] 5 mg PO Q4H PRN 3 Days #10 tab 05/04/20 Allergies Allergy/AdvReac Type Severity Reaction Status Date / Time diphenhydramine Allergy Confusion Verified 05/24/20 23:19 [From Benadryl] Sulfa (Sulfonamide Allergy Swelling Verified 05/24/20 23:19 Antibiotics) sulfamethoxazole Allergy Swelling Verified 05/24/20 23:19 [From Bactrim] trimethoprim [From Bactrim] Allergy Swelling Verified 05/24/20 23:19 Review of Systems ROS Statement: Those systems with pertinent positive or pertinent negative responses have been documented in the HPI. ROS Other: All systems not noted in ROS Statement are negative. Past Medical History Past Medical History: Asthma, Liver Disease, Seizure Disorder Additional Past Medical History / Comment(s): PTSD, chronic migraines, HX SEIZURES-LAST ONE 11/2019-NOT ON ANY MEDS FOR THEM (PT STATES SEIZURES ARE STRESS INDUCED History of Any Multi-Drug Resistant Organisms: MRSA Date of last positivie culture/infection: 2005 MDRO Source:: leg Past Surgical History: No Surgical Hx Reported Additional Past Surgical History / Comment(s): forehead reconstruction for head lac as child, Past Anesthesia/Blood Transfusion Reactions: No Reported Reaction Past Psychological History: Bipolar, Depression, PTSD, Schizoaffective Disorder Smoking Status: Former smoker Past Alcohol Use History: None Reported Past Drug Use History: Marijuana - Past Family History Father Family Medical History: Cancer Additional Family Medical History / Comment(s): ADOPTED-NOT TOTALLY SURE OF HHX Mother Family Medical History: Cancer Additional Family Medical History / Comment(s): ADOPTED-NOT TOTALLY SURE OF HHX General Exam - General Exam Comments Initial Comments: Surgery sites are clean dry and intact Limitations: no limitations General appearance: alert, in no apparent distress Head exam: Present: atraumatic, normocephalic, normal inspection Eye exam: Present: normal appearance, PERRL, EOMI. Absent: scleral icterus, conjunctival injection, periorbital swelling ENT exam: Present: normal exam, mucous membranes moist Neck exam: Present: normal inspection. Absent: tenderness, meningismus, lymphadenopathy Respiratory exam: Present: normal lung sounds bilaterally. Absent: respiratory distress, wheezes, rales, rhonchi, stridor Cardiovascular Exam: Present: regular rate, normal rhythm, normal heart sounds. Absent: systolic murmur, diastolic murmur, rubs, gallop, clicks GI/Abdominal exam: Present: soft, normal bowel sounds. Absent: distended, tenderness, guarding, rebound, rigid Extremities exam: Present: normal inspection, full ROM, normal capillary refill. Absent: tenderness, pedal edema, joint swelling, calf tenderness Back exam: Present: normal inspection Neurological exam: Present: alert, oriented X3, CN II-XII intact Psychiatric exam: Present: normal affect, normal mood Skin exam: Present: warm, dry, intact, normal color. Absent: rash Course Vital Signs 05/24/20 23:15 Temperature 98.3 F Pulse Rate 86 Respiratory 20 Rate Blood Pressure 147/99 O2 Sat by Pulse 99 Oximetry - Reevaluation(s) Reevaluation #1: Medical record is reviewed Patient does feel better here in the ER Spoke with patient regarding findings here in the ER and questions are answered Patient feels better good for discharge home Medical Decision Making - Medical Decision Making 30 male to the ER for evaluation patient has pain today coming in for evaluation. Patient has recent history of hernia repair patient is found to hav e a postoperative seroma. Patient can be discharged home - Lab Data Result diagrams: 05/24/20 23:54 05/24/20 23:54 Lab Results 05/24/20 05/24/20 05/24/20 Range/Units 23:54 23:54 23:54 WBC 7.4 (3.8-10.6) k/uL RBC 5.25 (4.30-5.90) m/uL Hgb 15.6 (13.0-17.5) gm/dL Hct 44.6 (39.0-53.0) % MCV 85.0 (80.0-100.0) fL MCH 29.7 (25.0-35.0) pg MCHC 35.0 (31.0-37.0) g/dL RDW 12.5 (11.5-15.5) % Plt Count 276 (150-450) k/uL MPV 6.9 Neutrophils % 55 % Lymphocytes % 33 % Monocytes % 7 % Eosinophils % 3 % Basophils % 1 % Neutrophils # 4.1 (1.3-7.7) k/uL Lymphocytes # 2.5 (1.0-4.8) k/uL Monocytes # 0.5 (0-1.0) k/uL Eosinophils # 0.2 (0-0.7) k/uL Basophils # 0.1 (0-0.2) k/uL Sodium 138 (137-145) mmol/L Potassium 4.3 (3.5-5.1) mmol/L Chloride 101 (98-107) mmol/L Carbon Dioxide 27 (22-30) mmol/L Anion Gap 10 mmol/L BUN 12 (9-20) mg/dL Creatinine 0.96 (0.66-1.25) mg/dL Est GFR (CKD-EPI)AfAm >90 (>60 ml/min/1.73 sqM) Est GFR (CKD-EPI)NonAf >90 (>60 ml/min/1.73 sqM) Glucose 113 H (74-99) mg/dL Plasma Lactic Acid Jorje 1.4 (0.7-2.0) mmol/L Calcium 9.8 (8.4-10.2) mg/dL Total Bilirubin 0.3 (0.2-1.3) mg/dL AST 41 (17-59) U/L ALT 68 H (4-49) U/L Alkaline Phosphatase 76 (38-126) U/L Total Protein 7.7 (6.3-8.2) g/dL Albumin 4.8 (3.5-5.0) g/dL Amylase 72 (30-110) U/L Lipase 186 (23-300) U/L - Radiology Data Radiology results: report reviewed (CTof the abdomen and pelvis is negative for acute disease), image reviewed Disposition Clinical Impression: Abdominal pain, Postoperative seroma Disposition: HOME SELF-CARE Condition: Good Instructions (If sedation given, give patient instructions): Seroma (DC) Is patient prescribed a controlled substance at d/c from ED?: No Referrals: Marycarmen Gaston MD [Primary Care Provider] - 1-2 days
[2020-05-25 00:21] LABS: Basophils # (A) 0.1 k/uL (0-0.2); Basophils % (A) 1 %; Eosinophils # (A) 0.2 k/uL (0-0.7); Eosinophils % (A) 3 %; HCT 44.6 % (39.0-53.0); HGB 15.6 gm/dL (13.0-17.5); Lymphocytes # (A) 2.5 k/uL (1.0-4.8); Lymphocytes % (A) 33 %; MCH 29.7 pg (25.0-35.0); Mean Platelet Volume 6.9; Monocytes # (A) 0.5 k/uL (0-1.0); Monocytes % (A) 7 %; Neutrophils # (A) 4.1 k/uL (1.3-7.7); Neutrophils % (A) 55 %; Platelet Count 276 k/uL (150-450); RBC 5.25 m/uL (4.30-5.90); RDW 12.5 % (11.5-15.5); WBC 7.4 k/uL (3.8-10.6)
--- NOTE | 2020-05-25 00:37 | CT ---
EXAM: CT Abdomen and Pelvis With Intravenous Contrast CLINICAL HISTORY: ITS.REASON CT Reason: abdominal pain TECHNIQUE: Axial computed tomography images of the abdomen and pelvis with intravenous contrast. CTDI is 42.68 mGy and DLP is 1970.4 mGy-cm. This CT exam was performed using one or more of the following dose reduction techniques: automated exposure control, adjustment of the mA and/or kV according to patient size, and/or use of iterative reconstruction technique. COMPARISON: 05/08/2019 FINDINGS: Lung bases: Unremarkable. No mass. No consolidation. ABDOMEN: Liver: Diffusely hypoattenuating liver. No mass. Gallbladder and bile ducts: Unremarkable. No calcified stones. No ductal dilation. Pancreas: Unremarkable. No mass. No ductal dilation. Spleen: Unremarkable. No splenomegaly. Adrenals: Unremarkable. No mass. Kidneys and ureters: Unremarkable. No solid mass. No hydronephrosis. Stomach and bowel: Moderate fecal burden throughout the colon. No obstruction. No mucosal thickening. PELVIS: Appendix: No findings to suggest acute appendicitis. Bladder: Unremarkable. No mass. Reproductive: Unremarkable as visualized. ABDOMEN and PELVIS: Intraperitoneal space: Unremarkable. No free air. No significant fluid collection. Bones/joints: No acute fracture. No dislocation. Soft tissues: Post surgical changes from umbilical hernia repair with periumbilical and left lower quadrant subcutaneous stranding. Loculated fluid deep to the umbilical hernia mesh measuring 3.6 x 10.0 x 6.3 cm with no peripheral rim enhancement. Vasculature: Unremarkable. No abdominal aortic aneurysm. Lymph nodes: Unremarkable. No enlarged lymph nodes. IMPRESSION: 1. Post-surgical changes from umbilical hernia repair with loculated fluid deep to the mesh measuring 3.6 x 10.0 x 6.3 cm with no peripheral rim enhancement which may represent a post-operative seroma. 2. Hepatic steatosis.
[2020-05-25 00:38] LABS: ALT 68 U/L (4-49); AST 41 U/L (17-59); African American GFR (CKD) >90 (>60 ml/min/1.73 sqM); Albumin 4.8 g/dL (3.5-5.0); Alkaline Phosphatase 76 U/L (38-126); Amylase 72 U/L (30-110); Anion Gap 10 mmol/L; Blood Urea Nitrogen 12 mg/dL (9-20); Calcium 9.8 mg/dL (8.4-10.2); Carbon Dioxide 27 mmol/L (22-30); Chloride 101 mmol/L (98-107); Glucose 113 mg/dL (74-99); Lipase 186 U/L (23-300); Non-African American GFR(CKD) >90 (>60 ml/min/1.73 sqM); Potassium 4.3 mmol/L (3.5-5.1); Sodium 138 mmol/L (137-145); Total Bilirubin 0.3 mg/dL (0.2-1.3); Total Protein 7.7 g/dL (6.3-8.2)
== END 2020-05-25 02:57 | disposition home or self-care (01) ==
LOC: EC 23:13
DX: G89.18 Other acute postprocedural pain (principal); R10.9 Unspecified abdominal pain; J45.909 Unspecified asthma, uncomplicated; F32.9 Major depressive disorder, single episode, unspecified; Z79.1 Long term (current) use of non-steroidal anti-inflammatories (NSAID); Z79.51 Long term (current) use of inhaled steroids; Z87.891 Personal history of nicotine dependence
CPT/HCPCS: 36415; 80053; 82150; 83605; 83690; 85025; 74177; 99284; 96374; 96361; J2270; Q9967

== ENCOUNTER 2020-07-09 01:46 | Emergency (ER) | payer OTHER ==
--- NOTE | 2020-07-09 05:03 | ED ---
Abdominal Pain HPI - General Chief Complaint: Abdominal Pain Stated Complaint: Abdominal pain Time Seen by Provider: 07/09/20 02:12 Source: patient Mode of arrival: ambulatory Limitations: no limitations - History of Present Illness Initial Comments: This patient is a 30-year-old man who presents to be evaluated for pain between the epigastric area and umbilicus that started after he had lifted 2 containers of fries at work. He states that it felt like there was a popping sensation. I he did have moderately severe pain. He states that it has subsequently improved. Patient states that he has a benign concerned now that he was exposed to person with coronavirus infection MD Complaint: abdominal pain -: hour(s) Location: periumbilical, epigastric Radiation: none Consistency: other (Partially resolved) Improves With: nothing Worsens With: nothing - Related Data Home Medications Medication Instructions Recorded Confirmed Cholecalciferol [Vitamin D3] 2,000 unit PO DAILY 03/26/16 05/04/20 Albuterol Inhaler (Mhu) [Ventolin 2 puff INHALATION RT-Q6H PRN 01/28/18 05/04/20 Hfa Inhaler] Loratadine [Claritin] 10 mg PO DAILY 01/28/18 05/04/20 Montelukast [Singulair] 10 mg PO DAILY 01/28/18 05/04/20 ARIPiprazole [Abilify] 10 mg PO DAILY 04/28/20 05/04/20 Fluticasone/Salmeterol [Advair 1 inhalation PO BID 04/28/20 05/04/20 250-50 Diskus] Previous Rx's Medication Instructions Recorded Acetaminophen Tab [Tylenol] 650 mg PO Q6H #30 tab 05/04/20 Docusate [Colace] 100 mg PO BID #20 capsule 05/04/20 Ibuprofen [Motrin] 600 mg PO Q6HR PRN #40 tab 05/04/20 oxyCODONE HCL [OxyIR] 5 mg PO Q4H PRN 3 Days #10 tab 05/04/20 Allergies Allergy/AdvReac Type Severity Reaction Status Date / Time diphenhydramine Allergy Confusion Verified 07/09/20 01:50 [From Benadryl] Sulfa (Sulfonamide Allergy Swelling Verified 07/09/20 01:50 Antibiotics) sulfamethoxazole Allergy Swelling Verified 07/09/20 01:50 [From Bactrim] trimethoprim [From Bactrim] Allergy Swelling Verified 07/09/20 01:50 Review of Systems ROS Statement: Those systems with pertinent positive or pertinent negative responses have been documented in the HPI. ROS Other: All systems not noted in ROS Statement are negative. Constitutional: Denies: fever, chills Respiratory: Denies: cough, dyspnea Cardiovascular: Denies: chest pain, palpitations Gastrointestinal: Reports: as per HPI, abdominal pain. Denies: nausea, vomiting, diarrhea, constipation, melena, hematochezia Genitourinary: Denies: dysuria, hematuria, testicular pain, testicular mass Musculoskeletal: Denies: back pain Skin: Denies: rash Neurological: Denies: headache Past Medical History Past Medical History: Asthma, Liver Disease, Seizure Disorder Additional Past Medical History / Comment(s): PTSD, chronic migraines, HX SEIZURES-LAST ONE 11/2019-NOT ON ANY MEDS FOR THEM (PT STATES SEIZURES ARE STRESS INDUCED History of Any Multi-Drug Resistant Organisms: MRSA Date of last positivie culture/infection: 2005 MDRO Source:: leg Past Surgical History: No Surgical Hx Reported Additional Past Surgical History / Comment(s): forehead reconstruction for head lac as child, Past Anesthesia/Blood Transfusion Reactions: No Reported Reaction Past Psychological History: Bipolar, Depression, PTSD, Schizoaffective Disorder Smoking Status: Former smoker Past Alcohol Use History: None Reported Past Drug Use History: Marijuana - Past Family History Father Family Medical History: Cancer Additional Family Medical History / Comment(s): ADOPTED-NOT TOTALLY SURE OF HHX Mother Family Medical History: Cancer Additional Family Medical History / Comment(s): ADOPTED-NOT TOTALLY SURE OF HHX General Exam Limitations: no limitations General appearance: alert, in no apparent distress Head exam: Present: atraumatic, normocephalic Eye exam: Present: normal appearance. Absent: scleral icterus, conjunctival injection Neck exam: Present: normal inspection Respiratory exam: Present: normal lung sounds bilaterally. Absent: respiratory distress, wheezes, rales, rhonchi, stridor Cardiovascular Exam: Present: regular rate, normal rhythm, normal heart sounds. Absent: systolic murmur, diastolic murmur, rubs, gallop GI/Abdominal exam: Present: soft. Absent: distended, tenderness, guarding, rebound, rigid, mass, pulsatile mass, hernia Extremities exam: Present: normal inspection, normal capillary refill. Absent: pedal edema, calf tenderness Back exam: Present: normal inspection. Absent: CVA tenderness (R), CVA tenderne ss (L) Neurological exam: Present: alert Skin exam: Present: warm, dry, intact, normal color. Absent: rash Course Vital Signs 07/09/20 07/09/20 01:48 05:25 Temperature 98.3 F 98.0 F Pulse Rate 81 83 Respiratory 19 18 Rate Blood Pressure 159/96 128/82 O2 Sat by Pulse 98 99 Oximetry Medical Decision Making - Medical Decision Making Following patient's abdominal exam, which is benign, he states the pain is pretty much resolved and that his main concern is the Covid-19 exposure. We did discuss appropriate further care and follow-up related to the abdomen. - Lab Data Lab Results 07/09/20 Range/Units 02:11 Influenza Type A (PCR) Not Detected (Not Detectd) Influenza Type B (PCR) Not Detected (Not Detectd) RSV (PCR) Not Detected (Not Detectd) SARS-CoV-2 (PCR) Not Detected (Not Detectd) Disposition Clinical Impression: Abdominal pain Disposition: HOME SELF-CARE Condition: Good Instructions (If sedation given, give patient instructions): Abdominal Pain (ED) Is patient prescribed a controlled substance at d/c from ED?: No Referrals: Marycarmen Gaston MD [Primary Care Provider] - 1-2 days Gene Paniagua MD [STAFF PHYSICIAN] - 1-2 days
[2020-07-09 05:28] VITALS: BP 128/82; PULSE 83; RESP 18; TEMP 98
== END 2020-07-09 05:27 | disposition home or self-care (01) ==
LOC: EC 01:46
DX: R10.13 Epigastric pain (principal); F25.9 Schizoaffective disorder, unspecified; F31.9 Bipolar disorder, unspecified; Z87.891 Personal history of nicotine dependence; F12.90 Cannabis use, unspecified, uncomplicated; Z20.822 Contact with and (suspected) exposure to COVID-19
CPT/HCPCS: 87636; 99284

== ENCOUNTER 2020-07-13 23:47 | Emergency (ER) | payer OTHER ==
[2020-07-13 23:52] VITALS: RESP 18; TEMP 98.1
--- NOTE | 2020-07-14 00:23 | ED ---
Headache HPI - General Chief Complaint: Headache Stated Complaint: Headache Time Seen by Provider: 07/13/20 23:54 Mode of arrival: ambulatory Limitations: no limitations - History of Present Illness Initial Comments: 30-year-old male with history of seizures and chronic migraines presents to emergency department with a chief complaint of headache. Patient reports he developed left-sided head pressure about 12 hours that woke him out of his sleep. Patient reports it is about 7/10. States this was somewhat with sudden onset but not the worst headache of his life. He denies any photosensitivity, nausea or vomiting but does report feeling slightly dizzy where the room is spinning around him. Denies any lightheadedness or diaphoretic episodes, visual changes, one-sided weakness or paresthesias. His mother is also present on room denies any changes to speech. States the patient is a baseline. Denies taking medication to alleviate the symptoms. - Related Data Home Medications Medication Instructions Recorded Confirmed Cholecalciferol [Vitamin D3] 2,000 unit PO DAILY 03/26/16 05/04/20 Albuterol Inhaler (Mhu) [Ventolin 2 puff INHALATION RT-Q6H PRN 01/28/18 05/04/20 Hfa Inhaler] Loratadine [Claritin] 10 mg PO DAILY 01/28/18 05/04/20 Montelukast [Singulair] 10 mg PO DAILY 01/28/18 05/04/20 ARIPiprazole [Abilify] 10 mg PO DAILY 04/28/20 05/04/20 Fluticasone/Salmeterol [Advair 1 inhalation PO BID 04/28/20 05/04/20 250-50 Diskus] Previous Rx's Medication Instructions Recorded Acetaminophen Tab [Tylenol] 650 mg PO Q6H #30 tab 05/04/20 Docusate [Colace] 100 mg PO BID #20 capsule 05/04/20 Ibuprofen [Motrin] 600 mg PO Q6HR PRN #40 tab 05/04/20 oxyCODONE HCL [OxyIR] 5 mg PO Q4H PRN 3 Days #10 tab 05/04/20 Allergies Allergy/AdvReac Type Severity Reaction Status Date / Time diphenhydramine Allergy Confusion Verified 07/13/20 23:52 [From Benadryl] Sulfa (Sulfonamide Allergy Swelling Verified 07/13/20 23:52 Antibiotics) sulfamethoxazole Allergy Swelling Verified 07/13/20 23:52 [From Bactrim] trimethoprim [From Bactrim] Allergy Swelling Verified 07/13/20 23:52 Review of Systems ROS Statement: Those systems with pertinent positive or pertinent negative responses have been documented in the HPI. ROS Other: All systems not noted in ROS Statement are negative. Past Medical History Past Medical History: Asthma, Liver Disease, Seizure Disorder Additional Past Medical History / Comment(s): PTSD, chronic migraines, HX SEIZURES-LAST ONE 11/2019-NOT ON ANY MEDS FOR THEM (PT STATES SEIZURES ARE STRESS INDUCED History of Any Multi-Drug Resistant Organisms: MRSA Date of last positivie culture/infection: 2005 MDRO Source:: leg Past Surgical History: No Surgical Hx Reported Additional Past Surgical History / Comment(s): forehead reconstruction for head lac as child, Past Anesthesia/Blood Transfusion Reactions: No Reported Reaction Past Psychological History: Bipolar, Depression, PTSD, Schizoaffective Disorder Smoking Status: Former smoker Past Alcohol Use History: None Reported Past Drug Use History: Marijuana - Past Family History Father Family Medical History: Cancer Additional Family Medical History / Comment(s): ADOPTED-NOT TOTALLY SURE OF HHX Mother Family Medical History: Cancer Additional Family Medical History / Comment(s): ADOPTED-NOT TOTALLY SURE OF HHX General Exam Limitations: no limitations General appearance: alert, in no apparent distress, obese Head exam: Present: atraumatic, normocephalic, normal inspection Eye exam: Present: normal appearance, PERRL, EOMI Pupils: Present: normal accommodation ENT exam: Present: normal exam, normal oropharynx, mucous membranes moist, TM's normal bilaterally, normal external ear exam Neck exam: Present: normal inspection, full ROM. Absent: tenderness Respiratory exam: Present: normal lung sounds bilaterally. Absent: respiratory distress, wheezes, rales, rhonchi, stridor Cardiovascular Exam: Present: regular rate, normal rhythm, normal heart sounds. Absent: systolic murmur Extremities exam: Present: normal inspection, full ROM, normal capillary refill, other (Palpable DP and PT bilaterally.). Absent: tenderness, pedal edema, joint swelling, calf tenderness Back exam: Present: normal inspection, full ROM. Absent: tenderness, CVA tenderness (R), CVA tenderness (L) Neurological exam: Present: alert, oriented X3, CN II-XII intact, normal gait Expanded Patient oriented to: Present: person, place, time Speech: Present: fluid speech Cranial nerves: EOM's Intact: Normal, Gag Reflex: Normal, Tongue Deviation: Normal, Nystagmus: Normal, Facial Sensation: Normal Cerebellar function: Finger to Nose: Normal Upper motor neuron: Pronator Drift: Normal Sensory exam: Upper Extremity Light Touch: Normal, Upper Extremity Pin Prick: Normal, Lower Extremity Light Touch: Normal, Lower Extremity Pin Prick: Normal Motor strength exam: RUE: 5, LUE: 5, RLE: 5, LLE: 5 Psychiatric exam: Present: normal affect, normal mood Skin exam: Present: warm, dry, intact, normal color Course Vital Signs 07/13/20 07/14/20 23:50 01:21 Temperature 98.1 F 98.1 F Pulse Rate 79 82 Respiratory 18 18 Rate Blood Pressure 127/85 133/86 O2 Sat by Pulse 96 97 Oximetry Medical Decision Making - Medical Decision Making 30-year-old male with history of chronic migraines presents to the emergency department with a chief complaint of headache. On physical examination, no focal neural deficits. CT of the brain is unremarkable. Patient was given Toradol. On reevaluation, patient reports improvement in symptoms. Vital signs within normal limits. Patient will be discharged with outpatient follow-up. Return parameters discussed patient is understanding and agreeable - EKG Data EKG Comments: Sinus rhythm with first-degree AV block Ventricular rate 81, MO 222, QRS 104, QTC 434. Similar EKG to 11/18/19 Disposition Clinical Impression: Headache Disposition: HOME SELF-CARE Condition: Stable Instructions (If sedation given, give patient instructions): Acute Headache (ED) Additional Instructions: Please return to the Emergency Department if symptoms worsen or any other concer ns. Follow up with her primary care physician Is patient prescribed a controlled substance at d/c from ED?: No Referrals: Marycarmen Gaston MD [Primary Care Provider] - 1-2 days Time of Disposition: 01:13
--- NOTE | 2020-07-14 00:47 | CT ---
EXAM: CT Head Without Intravenous Contrast CLINICAL HISTORY: headache + dizzy TECHNIQUE: Axial computed tomography images of the head/brain without intravenous contrast. CTDI is 49.2 mGy and DLP is 1086.4 mGy-cm. This CT exam was performed using one or more of the following dose reduction techniques: automated exposure control, adjustment of the mA and/or kV according to patient size, and/or use of iterative reconstruction technique. Coronal and sagittal reformatted images were created and reviewed. COMPARISON: 12/03/19 FINDINGS: Brain: Unremarkable. No hemorrhage. No significant white matter disease. No edema. Ventricles: Unremarkable. No ventriculomegaly. Bones/joints: Unremarkable. No acute fracture. Soft tissues: Unremarkable. Sinuses: Unremarkable as visualized. No acute sinusitis. Mastoid air cells: Unremarkable as visualized. No mastoid effusion. IMPRESSION: No acute findings or substantial change
[2020-07-14] MEDS ORDERED: KETOROLAC 15 MG/ML 1 ML VIAL IM STA (01:13)
[2020-07-14 01:26] VITALS: BP 133/86; PULSE 82
== END 2020-07-14 01:27 | disposition home or self-care (01) ==
LOC: EC 23:47
DX: R51.9 Headache, unspecified (principal); R42 Dizziness and giddiness; J45.909 Unspecified asthma, uncomplicated; G40.909 Epilepsy, unspecified, not intractable, without status epilepticus; F32.9 Major depressive disorder, single episode, unspecified; F25.9 Schizoaffective disorder, unspecified; F12.90 Cannabis use, unspecified, uncomplicated; Z87.891 Personal history of nicotine dependence; Z79.1 Long term (current) use of non-steroidal anti-inflammatories (NSAID); Z79.51 Long term (current) use of inhaled steroids
CPT/HCPCS: 93005; 70450; 99284; 96372; J1885

== ENCOUNTER 2020-07-15 18:26 | Emergency (ER) | payer OTHER ==
[2020-07-15 18:39] VITALS: BP 159/86; PULSE 80; RESP 18; TEMP 98.4
[2020-07-15] MEDS ORDERED: ACETAMINOPHEN TAB 500 MG TAB PO STA (19:15)
[2020-07-15] MEDS ORDERED: KETOROLAC 15 MG/ML 1 ML VIAL IM STA (19:16)
--- NOTE | 2020-07-15 19:18 | ED ---
Headache HPI - General Chief Complaint: Headache Stated Complaint: Lightheaded Time Seen by Provider: 07/15/20 18:58 Mode of arrival: ambulatory Limitations: no limitations - History of Present Illness Initial Comments: 30 year-old male patient presents to the emergency department today for evaluation of left sided headache. Patient states symptoms started at 5pm this evening. States started as sharp but then now feels like an intense pressure. Denies any blurred or double vision. States he was having some tingling in his left arm and left foot. Reports some mild dizziness. Denies nausea or vomiting. Denies any recent head injury. Patient has had similar symptoms since Saturday. He was seen in the ED and underwent CT brain and COVID testing without significant findings. Patient has not taken anything for his symptoms today. Patient denies any recent rash, fever, chills, cough, shortness of breath, chest pain, abdominal pain, diarrhea, constipation, back pain, hematuria, dysuria, urinary urgency, urinary frequency, or any other complaints. - Related Data Home Medications Medication Instructions Recorded Confirmed Cholecalciferol [Vitamin D3] 2,000 unit PO DAILY 03/26/16 05/04/20 Albuterol Inhaler (Mhu) [Ventolin 2 puff INHALATION RT-Q6H PRN 01/28/18 05/04/20 Hfa Inhaler] Loratadine [Claritin] 10 mg PO DAILY 01/28/18 05/04/20 Montelukast [Singulair] 10 mg PO DAILY 01/28/18 05/04/20 ARIPiprazole [Abilify] 10 mg PO DAILY 04/28/20 05/04/20 Fluticasone/Salmeterol [Advair 1 inhalation PO BID 04/28/20 05/04/20 250-50 Diskus] Previous Rx's Medication Instructions Recorded Acetaminophen Tab [Tylenol] 650 mg PO Q6H #30 tab 05/04/20 Docusate [Colace] 100 mg PO BID #20 capsule 05/04/20 Ibuprofen [Motrin] 600 mg PO Q6HR PRN #40 tab 05/04/20 oxyCODONE HCL [OxyIR] 5 mg PO Q4H PRN 3 Days #10 tab 05/04/20 Allergies Allergy/AdvReac Type Severity Reaction Status Date / Time diphenhydramine Allergy Confusion Verified 07/15/20 18:39 [From Benadryl] Sulfa (Sulfonamide Allergy Swelling Verified 07/15/20 18:39 Antibiotics) sulfamethoxazole Allergy Swelling Verified 07/15/20 18:39 [From Bactrim] trimethoprim [From Bactrim] Allergy Swelling Verified 07/15/20 18:39 Review of Systems ROS Statement: Those systems with pertinent positive or pertinent negative responses have been documented in the HPI. ROS Other: All systems not noted in ROS Statement are negative. Past Medical History Past Medical History: Asthma, Liver Disease, Seizure Disorder Additional Past Medical History / Comment(s): PTSD, chronic migraines, HX SEIZURES-LAST ONE 11/2019-NOT ON ANY MEDS FOR THEM (PT STATES SEIZURES ARE STRESS INDUCED History of Any Multi-Drug Resistant Organisms: MRSA Date of last positivie culture/infection: 2005 MDRO Source:: leg Past Surgical History: No Surgical Hx Reported Additional Past Surgical History / Comment(s): forehead reconstruction for head lac as child, hernie repair, Past Anesthesia/Blood Transfusion Reactions: No Reported Reaction Past Psychological History: Bipolar, Depression, PTSD, Schizoaffective Disorder Smoking Status: Former smoker Past Alcohol Use History: None Reported Past Drug Use History: Marijuana - Past Family History Father Family Medical History: Cancer Additional Family Medical History / Comment(s): ADOPTED-NOT TOTALLY SURE OF HHX Mother Family Medical History: Cancer Additional Family Medical History / Comment(s): ADOPTED-NOT TOTALLY SURE OF HHX General Exam Limitations: no limitations General appearance: alert, in no apparent distress, other (Physical well- developed, well-nourished adult male patient in no acute distress. Vital signs upon presentation are temperature 98.4F, pulse 80, respirations 18, blood pressure 159/86, pulse ox 95% on room air.) Eye exam: Present: normal appearance, PERRL, EOMI. Absent: scleral icterus, conjunctival injection, periorbital swelling ENT exam: Present: normal exam, normal oropharynx, mucous membranes moist Neck exam: Present: normal inspection. Absent: tenderness, meningismus, lymphadenopathy Respiratory exam: Present: normal lung sounds bilaterally. Absent: respiratory distress, wheezes, rales, rhonchi, stridor Cardiovascular Exam: Present: regular rate, normal rhythm, normal heart sounds. Absent: systolic murmur, diastolic murmur, rubs, gallop, clicks GI/Abdominal exam: Present: soft, normal bowel sounds. Absent: distended, tenderness, guarding, rebound, rigid Neurological exam: Present: alert, oriented X3, CN II-XII intact Expanded Speech: Present: fluid speech Cranial nerves: EOM's Intact: Normal, Tongue Deviation: Normal, Nystagmus: Normal Motor strength exam: RUE: 5, LUE: 5, RLE: 5, LLE: 5 Psychiatric exam: Present: normal affect, normal mood Skin exam: Present: warm, dry, intact, normal color. Absent: rash Course Vital Signs 07/15/20 18:35 Temperature 98.4 F Pulse Rate 80 Respiratory 18 Rate Blood Pressure 159/86 O2 Sat by Pulse 95 Oximetry Medical Decision Making - Medical Decision Making 30-year-old male patient presents to the emergency department today for evaluation of left-sided headache. Patient isn't having symptoms since Saturday. Was seen and evaluated on Saturday did have negative computed tomography scan negative. Testing. Physical examination is unremarkable. He is neurologically intact with no focal deficits. He is given oral medications and a dose of IM Toradol. He'll be discharged problems his primary care physician and neurology for further evaluation. Return parameters were discussed in detail. He verbalizes understanding and agrees with this plan. Case discussed with my attending Dr. Lincoln. Disposition Clinical Impression: Headache Disposition: HOME SELF-CARE Condition: Good Instructions (If sedation given, give patient instructions): Acute Headache (ED) Additional Instructions: Follow up with the neurologist for further evaluation. Follow up with your primary care physician in 1-2 days, you may need a referral. Return for any new, worsening, or concerning symptoms. Is patient prescribed a controlled substance at d/c from ED?: No Referrals: Marycarmen Gaston MD [Primary Care Provider] - 1-2 days Time of Disposition: 19:18
== END 2020-07-15 19:44 | disposition home or self-care (01) ==
LOC: EC 18:26
DX: R51.9 Headache, unspecified (principal); R42 Dizziness and giddiness; J45.909 Unspecified asthma, uncomplicated; G40.909 Epilepsy, unspecified, not intractable, without status epilepticus; F32.9 Major depressive disorder, single episode, unspecified; F12.90 Cannabis use, unspecified, uncomplicated; F25.9 Schizoaffective disorder, unspecified; Z87.891 Personal history of nicotine dependence; Z79.1 Long term (current) use of non-steroidal anti-inflammatories (NSAID); Z79.51 Long term (current) use of inhaled steroids
CPT/HCPCS: 99283; 96372; J1885

== ENCOUNTER 2020-07-25 19:52 | Emergency (ER) | payer OTHER ==
[2020-07-25 20:04] VITALS: RESP 18; TEMP 98.4
[2020-07-25] MEDS ORDERED: SODIUM CHLORIDE 0.9% 500 ML 500 ML IV STA (20:48)
[2020-07-25] MEDS ORDERED: KETOROLAC 15 MG/ML 1 ML VIAL IVP STA (20:48)
--- NOTE | 2020-07-25 21:03 | ED ---
Abdominal Pain HPI - General Chief Complaint: Abdominal Pain Stated Complaint: Post op pain Time Seen by Provider: 07/25/20 20:37 Source: patient Mode of arrival: ambulatory Limitations: no limitations - History of Present Illness Initial Comments: Patient is a 30-year-old male presenting to the emergency Department with complaints of lower left abdominal pain since yesterday. Patient states he felt a little bit yesterday but thought he could've just overdone it at work. He states throughout today the pain has been increasing and is very tender the touch. He admits to some mild radiation towards the left side. Denies history of diverticulitis or kidney stones. He denies any nausea or vomiting. He admits to history of umbilical hernia repair, no other abdominal surgeries. He states currently his pain is "10 out of 10" however he is sitting comfortably, in no acute distress, talking without difficulty. He denies any dysuria or hematuria. He denies any chest pain or shortness of breath. Denies any fevers or chills. He has no further complaints at this time. Upon arrival to the ER, his vitals are stable. - Related Data Home Medications Medication Instructions Recorded Confirmed Loratadine [Claritin] 10 mg PO DAILY 01/28/18 07/25/20 Montelukast [Singulair] 10 mg PO DAILY 01/28/18 07/25/20 ARIPiprazole [Abilify] 10 mg PO DAILY 04/28/20 07/25/20 Albuterol Nebulized [Ventolin 2.5 mg INHALATION RT-Q6H PRN 07/25/20 07/25/20 Nebulized] Albuterol Sulfate [Proair Hfa] 2 puff INHALATION RT-QID PRN 07/25/20 07/25/20 Cholecalciferol (Vitamin D3) 125 mcg PO DAILY 07/25/20 07/25/20 [Vitamin D3 (5000 Iu)] Fluticasone/Salmeterol [Advair Hfa 2 puff INHALATION RT-BID 07/25/20 07/25/20 230-21 Mcg Inhaler] Meclizine HCl 25 mg PO TID PRN 07/25/20 07/25/20 Naproxen [Naprosyn] 500 mg PO Q12HR PRN 07/25/20 07/25/20 Simethicone Chew [Mylicon Chew] 80 mg PO BID PRN 07/25/20 07/25/20 Previous Rx's Medication Instructions Recorded Cephalexin [Keflex] 500 mg PO Q6HR 7 Days #28 cap 07/25/20 Allergies Allergy/AdvReac Type Severity Reaction Status Date / Time diphenhydramine Allergy Confusion Verified 07/25/20 21:10 [From Benadryl] Sulfa (Sulfonamide Allergy Swelling Verified 07/25/20 21:10 Antibiotics) sulfamethoxazole Allergy Swelling Verified 07/25/20 21:10 [From Bactrim] trimethoprim [From Bactrim] Allergy Swelling Verified 07/25/20 21:10 Review of Systems ROS Statement: Those systems with pertinent positive or pertinent negative responses have been documented in the HPI. ROS Other: All systems not noted in ROS Statement are negative. Past Medical History Past Medical History: Asthma, Liver Disease, Seizure Disorder Additional Past Medical History / Comment(s): PTSD, chronic migraines, HX SEIZURES-LAST ONE 11/2019-NOT ON ANY MEDS FOR THEM (PT STATES SEIZURES ARE STRESS INDUCED History of Any Multi-Drug Resistant Organisms: MRSA Date of last positivie culture/infection: 2005 MDRO Source:: leg Past Surgical History: No Surgical Hx Reported Additional Past Surgical History / Comment(s): forehead reconstruction for head lac as child, hernie repair, Past Anesthesia/Blood Transfusion Reactions: No Reported Reaction Past Psychological History: Bipolar, Depression, PTSD, Schizoaffective Disorder Smoking Status: Current every day smoker Past Alcohol Use History: None Reported Past Drug Use History: Marijuana - Past Family History Father Family Medical History: Cancer Additional Family Medical History / Comment(s): ADOPTED-NOT TOTALLY SURE OF HHX Mother Family Medical History: Cancer Additional Family Medical History / Comment(s): ADOPTED-NOT TOTALLY SURE OF HHX General Exam - General Exam Comments Initial Comments: GENERAL: Patient is well-developed and well-nourished. Patient is nontoxic and in no acute distress. HEAD: Atraumatic, normocephalic. EYES: Pupils equal round and reactive to light, extraocular movements intact, sclera anicteric, conjunctiva are normal. Eyelids were unremarkable. ENT: TMs normal, nares patent, oropharynx clear without exudates. Moist mucous membranes. NECK: Normal range of motion, supple without lymphadenopathy or JVD. LUNGS: Unlabored respirations. Breath sounds clear to auscultation bilaterally and equal. No wheezes rales or rhonchi. HEART: Regular rate and rhythm without murmurs, rubs or gallops. ABDOMEN: Soft, tender to palpation of the left lower quadrant, left side of the abdomen. normoactive bowel sounds. No guarding, no rebound. No masses appreciated. : Deferred MUSCULOSKELETAL: Normal extremities with adequate strength and normal range of motion, no pitting or edema. No clubbing or cyanosis. NEUROLOGICAL: Patient is alert and oriented x 3. Motor and sensory are also intact. Cranial nerves II through XII grossly intact. Symmetrical smile. Normal speech, normal gait. PSYCH: Normal mood, normal affect. SKIN: Warm, Dry, normal turgor, no rashes or lesions noted. Limitations: no limitations Course Vital Signs 07/25/20 07/25/20 20:02 22:28 Temperature 98.4 F Pulse Rate 92 85 Respiratory 18 18 Rate Blood Pressure 135/81 124/79 O2 Sat by Pulse 95 97 Oximetry Medical Decision Making - Medical Decision Making Patient is a 30-year-old male presenting with left lower quadrant abdominal pain started yesterday. His vital signs are stable, no fevers, no vomiting. Normal bowel movements. History of umbilical hernia repair in April, no other abdominal surgeries. He does have pain in the left lower quadrant with palpation, some mild pain in the left side as well. Labs show normal white count, normal lactic acid, normal lipase. Urine does show [address] of the abdomen shows no sign of acute abdomen or pelvis, no kidney stones. Patient was given fluids and Toradol, is resting comfortably. Discussed with patient that his symptoms are most likely related to UTI. He states he has had these in the past. I did add on gonorrhea and chlamydia, these are pending. Patient will be given 1 g Rocephin here in the ER, he'll be discharged home on Keflex, 4 times daily. Urine culture is pending. Patient will follow up with his PCP. Patient is stable for discharge. Patient is in agreement with this plan of care. Return parameters were discussed with the patient and they verbalized understanding. Case discussed with Dr. Mullins. - Lab Data Result diagrams: 07/25/20 21:32 07/25/20 21:32 Lab Results 07/25/20 07/25/20 07/25/20 Range/Units 21:32 21:32 21:32 WBC 10.5 (3.8-10.6) k/uL RBC 5.72 (4.30-5.90) m/uL Hgb 16.7 (13.0-17.5) gm/dL Hct 48.7 (39.0-53.0) % MCV 85.1 (80.0-100.0) fL MCH 29.2 (25.0-35.0) pg MCHC 34.4 (31.0-37.0) g/dL RDW 12.6 (11.5-15.5) % Plt Count 321 (150-450) k/uL MPV 7.0 Neutrophils % 59 % Lymphocytes % 28 % Monocytes % 8 % Eosinophils % 3 % Basophils % 1 % Neutrophils # 6.2 (1.3-7.7) k/uL Lymphocytes # 2.9 (1.0-4.8) k/uL Monocytes # 0.8 (0-1.0) k/uL Eosinophils # 0.3 (0-0.7) k/uL Basophils # 0.1 (0-0.2) k/uL Sodium 140 (137-145) mmol/L Potassium 4.4 (3.5-5.1) mmol/L Chloride 103 (98-107) mmol/L Carbon Dioxide 28 (22-30) mmol/L Anion Gap 9 mmol/L BUN 13 (9-20) mg/dL Creatinine 0.95 (0.66-1.25) mg/dL Est GFR (CKD-EPI)AfAm >90 (>60 ml/min/1.73 sqM) Est GFR (CKD-EPI)NonAf >90 (>60 ml/min/1.73 sqM) Glucose 107 H (74-99) mg/dL Plasma Lactic Acid Jorje (0.7-2.0) mmol/L Calcium 10.2 (8.4-10.2) mg/dL Total Bilirubin 0.4 (0.2-1.3) mg/dL AST 48 (17-59) U/L ALT 83 H (4-49) U/L Alkaline Phosphatase 82 (38-126) U/L Total Protein 8.3 H (6.3-8.2) g/dL Albumin 5.1 H (3.5-5.0) g/dL Amylase 74 (30-110) U/L Lipase 152 (23-300) U/L Urine Color Yellow Urine Appearance Cloudy (Clear) Urine pH 6.5 (5.0-8.0) Ur Specific [place] 1.023 (1.001-1.035) Urine Protein 1+ H (Negative) Urine Glucose (UA) Negative (Negative) Urine Ketones Negative (Negative) Urine Blood Negative (Negative) Urine Nitrite Negative (Negative) Urine Bilirubin Negative (Negative) Urine Urobilinogen <2.0 (<2.0) mg/dL Ur Leukocyte Esterase Large H (Negative) Urine RBC 4 (0-5) /hpf Urine WBC 112 H (0-5) /hpf Ur Squamous Epith Cells 1 (0-4) /hpf Urine Bacteria Rare H (None) /hpf Urine Mucus Many H (None) /hpf 07/25/20 Range/Units 21:32 WBC (3.8-10.6) k/uL RBC (4.30-5.90) m/uL Hgb (13.0-17.5) gm/dL Hct (39.0-53.0) % MCV (80.0-100.0) fL MCH (25.0-35.0) pg MCHC (31.0-37.0) g/dL RDW (11.5-15.5) % Plt Count (150-450) k/uL MPV Neutrophils % % Lymphocytes % % Monocytes % % Eosinophils % % Basophils % % Neutrophils # (1.3-7.7) k/uL Lymphocytes # (1.0-4.8) k/uL Monocytes # (0-1.0) k/uL Eosinophils # (0-0.7) k/uL Basophils # (0-0.2) k/uL Sodium (137-145) mmol/L Potassium (3.5-5.1) mmol/L Chloride (98-107) mmol/L Carbon Dioxide (22-30) mmol/L Anion Gap mmol/L BUN (9-20) mg/dL Creatinine (0.66-1.25) mg/dL Est GFR (CKD-EPI)AfAm (>60 ml/min/1.73 sqM) Est GFR (CKD-EPI)NonAf (>60 ml/min/1.73 sqM) Glucose (74-99) mg/dL Plasma Lactic Acid Jorje 1.2 (0.7-2.0) mmol/L Calcium (8.4-10.2) mg/dL Total Bilirubin (0.2-1.3) mg/dL AST (17-59) U/L ALT (4-49) U/L Alkaline Phosphatase (38-126) U/L Total Protein (6.3-8.2) g/dL Albumin (3.5-5.0) g/dL Amylase (30-110) U/L Lipase (23-300) U/L Urine Color Urine Appearance (Clear) Urine pH (5.0-8.0) Ur Specific [place] (1.001-1.035) Urine Protein (Negative) Urine Glucose (UA) (Negative) Urine Ketones (Negative) Urine Blood (Negative) Urine Nitrite (Negative) Urine Bilirubin (Negative) Urine Urobilinogen (<2.0) mg/dL Ur Leukocyte Esterase (Negative) Urine RBC (0-5) /hpf Urine WBC (0-5) /hpf Ur Squamous Epith Cells (0-4) /hpf Urine Bacteria (None) /hpf Urine Mucus (None) /hpf Disposition Clinical Impression: UTI (urinary tract infection), Abdominal pain Disposition: HOME SELF-CARE Condition: Stable Instructions (If sedation given, give patient instructions): Urinary Tract Infection in Men (ED) Additional Instructions: Please return to the Emergency Department if symptoms worsen or any other concerns. Take antibiotics as prescribed. May take Tylenol or Motrin for any discomfort. Follow-up with your regular family doctor. Prescriptions: Cephalexin [Keflex] 500 mg PO Q6HR 7 Days #28 cap Is patient prescribed a controlled substance at d/c from ED?: No Referrals: Marycarmen Gaston MD [Primary Care Provider] - 1-2 days Time of Disposition: 22:50
[2020-07-25 21:53] LABS: Basophils # (A) 0.1 k/uL (0-0.2); Basophils % (A) 1 %; Eosinophils # (A) 0.3 k/uL (0-0.7); Eosinophils % (A) 3 %; HCT 48.7 % (39.0-53.0); HGB 16.7 gm/dL (13.0-17.5); Lymphocytes # (A) 2.9 k/uL (1.0-4.8); Lymphocytes % (A) 28 %; MCH 29.2 pg (25.0-35.0); MCHC 34.4 g/dL (31.0-37.0); MCV 85.1 fL (80.0-100.0); Monocytes # (A) 0.8 k/uL (0-1.0); Monocytes % (A) 8 %; Neutrophils # (A) 6.2 k/uL (1.3-7.7); Neutrophils % (A) 59 %; Platelet Count 321 k/uL (150-450); RBC 5.72 m/uL (4.30-5.90); RDW 12.6 % (11.5-15.5); WBC 10.5 k/uL (3.8-10.6)
[2020-07-25 22:05] LABS: ALT 83 U/L (4-49); AST 48 U/L (17-59); African American GFR (CKD) >90 (>60 ml/min/1.73 sqM); Albumin 5.1 g/dL (3.5-5.0); Alkaline Phosphatase 82 U/L (38-126); Amylase 74 U/L (30-110); Anion Gap 9 mmol/L; Blood Urea Nitrogen 13 mg/dL (9-20); Calcium 10.2 mg/dL (8.4-10.2); Carbon Dioxide 28 mmol/L (22-30); Chloride 103 mmol/L (98-107); Glucose 107 mg/dL (74-99); Lipase 152 U/L (23-300); Non-African American GFR(CKD) >90 (>60 ml/min/1.73 sqM); Potassium 4.4 mmol/L (3.5-5.1); Sodium 140 mmol/L (137-145); Total Bilirubin 0.4 mg/dL (0.2-1.3); Total Protein 8.3 g/dL (6.3-8.2)
--- NOTE | 2020-07-25 22:17 | CT ---
EXAMINATION TYPE: CT abdomen pelvis w con DATE OF EXAM: 07/25/2020 COMPARISON: 05/25/2020 HISTORY: LLQ PAIN CT DLP: 2229 mGycm Automated exposure control for dose reduction was used. CONTRAST: Performed with IV Contrast, patient injected with 100 mL of Isovue 300. The lung bases are clear. There is no pleural effusion. Heart size is normal. There is no pericardial effusion. There is diffuse fatty infiltration of the liver. Spleen is intact. There is no pancreatic mass. Stomach is intact. Gallbladder appears normal. There is no adrenal mass. Kidneys show satisfac tory contrast opacification. There is no hydronephrosis. The ureters are not dilated. There is no ret roperitoneal adenopathy. Bladder distends smoothly. Delayed images show normal renal excretion. There is no sign of thickened appendix. Appendix appears small. There is no mesenteric edema. There is no ascites or free air. There is no bowel obstruction. The lum bar vertebra have normal alignment. Disc spaces are normal. Posterior elements are intact. The hip mario ints are intact. There is no hip dysplasia. IMPRESSION: Fatty infiltration of the liver. No sign of acute abdomen and pelvis. There is clearing of the fluid collection in the anterior abdomen adjacent to the abdominal wall compared to old exam.
[2020-07-25 22:18] LABS: Appearance,Urine Cloudy (Clear); Bacteria,Urine Rare /hpf; Bilirubin,Urine Negative (Negative); Blood,Urine Negative (Negative); Color,Urine Yellow; Glucose,Urine (UA) Negative (Negative); Ketones,Urine Negative (Negative); Leukocyte Esterase,Urine Large (Negative); Mucus,Urine Many /hpf; Nitrite,Urine Negative (Negative); PH, Urine 6.5 (5.0-8.0); Protein,Urine 1+ (Negative); RBC,Urine 4 /hpf (0-5); Specific Gravity,Urine 1.023 (1.001-1.035); Squamous Epithelial Cell,Urine 1 /hpf (0-4); Urobilinogen,Urine <2.0 mg/dL (<2.0); WBC,Urine 112 /hpf (0-5)
[2020-07-25 22:29] VITALS: BP 124/79; PULSE 85
[2020-07-25] MEDS ORDERED: cefTRIAXone IN SWFI 1,000 MG/10 ML SYRINGE IVP STA (22:33)
[2020-07-27 17:09] LABS: C. trachomatis,PCR Negative (Neg,Equiv); Chlamydia trachomatis Source Urine; N. gonorrhoeae,PCR Negative (Neg,Equiv); Neisseria Source Urine
== END 2020-07-25 23:11 | disposition home or self-care (01) ==
LOC: EC 19:52
DX: N39.0 Urinary tract infection, site not specified (principal); J45.909 Unspecified asthma, uncomplicated; K76.0 Fatty (change of) liver, not elsewhere classified; F25.9 Schizoaffective disorder, unspecified; F17.200 Nicotine dependence, unspecified, uncomplicated; Z79.899 Other long term (current) drug therapy
CPT/HCPCS: 36415; 80053; 82150; 83605; 83690; 85025; 81001; 87491; 87591; 87086; 74177; 99284; 96374; 96375; J0696; J1885; Q9967

== ENCOUNTER 2020-08-20 02:13 | Emergency (ER) | payer OTHER ==
[2020-08-20 02:20] VITALS: BP 124/79; PULSE 83; RESP 18; TEMP 98.3
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
== END 2020-08-20 04:11 | disposition home or self-care (01) ==
LOC: EC 02:13
DX: S80.02XA Contusion of left knee, initial encounter (principal); S49.92XA Unspecified injury of left shoulder and upper arm, initial encounter; J45.909 Unspecified asthma, uncomplicated; G40.909 Epilepsy, unspecified, not intractable, without status epilepticus; F25.9 Schizoaffective disorder, unspecified; F17.200 Nicotine dependence, unspecified, uncomplicated; Z79.52 Long term (current) use of systemic steroids; V47.5XXA Car driver injured in collision with fixed or stationary object in traffic accident, initial encounter; Y92.410 Unspecified street and highway as the place of occurrence of the external cause
CPT/HCPCS: 99284

== ENCOUNTER 2020-09-20 23:21 | Emergency (ER) | payer OTHER ==
[2020-09-20 23:28] VITALS: RESP 18; TEMP 98.3
[2020-09-20] MEDS ORDERED: SODIUM CHLORIDE 0.9% 500 ML 500 ML IV STA (23:49)
[2020-09-21 00:06] LABS: Basophils # (A) 0.1 k/uL (0-0.2); Basophils % (A) 1 %; Eosinophils # (A) 0.1 k/uL (0-0.7); Eosinophils % (A) 2 %; HCT 47.3 % (39.0-53.0); HGB 15.4 gm/dL (13.0-17.5); Lymphocytes % (A) 28 %; MCH 28.1 pg (25.0-35.0); MCHC 32.6 g/dL (31.0-37.0); MCV 86.3 fL (80.0-100.0); Mean Platelet Volume 7.1; Monocytes # (A) 0.5 k/uL (0-1.0); Monocytes % (A) 7 %; Neutrophils # (A) 4.2 k/uL (1.3-7.7); Neutrophils % (A) 60 %; Platelet Count 278 k/uL (150-450); RBC 5.48 m/uL (4.30-5.90); RDW 13.2 % (11.5-15.5)
[2020-09-21 00:17] LABS: ALT 99 U/L (4-49); AST 66 U/L (17-59); African American GFR (CKD) >90 (>60 ml/min/1.73 sqM); Alkaline Phosphatase 70 U/L (38-126); Anion Gap 10 mmol/L; Blood Urea Nitrogen 11 mg/dL (9-20); Calcium 9.9 mg/dL (8.4-10.2); Carbon Dioxide 27 mmol/L (22-30); Chloride 103 mmol/L (98-107); Glucose 109 mg/dL (74-99); Magnesium 2.1 mg/dL (1.6-2.3); Non-African American GFR(CKD) >90 (>60 ml/min/1.73 sqM); Potassium 4.3 mmol/L (3.5-5.1); Sodium 140 mmol/L (137-145); Total Bilirubin 0.4 mg/dL (0.2-1.3); Total Protein 7.9 g/dL (6.3-8.2)
[2020-09-21 00:24] VITALS: BP 142/77; PULSE 77
--- NOTE | 2020-09-21 00:56 | ED ---
Seizure HPI - General Chief Complaint: Seizure Stated Complaint: Seizure Time Seen by Provider: 09/20/20 23:27 Source: patient, EMS Mode of arrival: EMS Limitations: no limitations - History of Present Illness MD Complaint: seizure -: minutes(s) Description of Episode: loss of consciousness, tonic-clonic movement -: minutes(s) Witnessed: yes - by bystander Trauma: Yes Place: home Possible Precipitating Event: none Associated Symptoms: denies other symptoms - Related Data Home Medications Medication Instructions Recorded Confirmed Loratadine [Claritin] 10 mg PO DAILY 01/28/18 07/25/20 Montelukast [Singulair] 10 mg PO DAILY 01/28/18 07/25/20 ARIPiprazole [Abilify] 10 mg PO DAILY 04/28/20 07/25/20 Albuterol Nebulized [Ventolin 2.5 mg INHALATION RT-Q6H PRN 07/25/20 07/25/20 Nebulized] Albuterol Sulfate [Proair Hfa] 2 puff INHALATION RT-QID PRN 07/25/20 07/25/20 Cholecalciferol (Vitamin D3) 125 mcg PO DAILY 07/25/20 07/25/20 [Vitamin D3 (5000 Iu)] Fluticasone/Salmeterol [Advair Hfa 2 puff INHALATION RT-BID 07/25/20 07/25/20 230-21 Mcg Inhaler] Meclizine HCl 25 mg PO TID PRN 07/25/20 07/25/20 Naproxen [Naprosyn] 500 mg PO Q12HR PRN 07/25/20 07/25/20 Simethicone Chew [Mylicon Chew] 80 mg PO BID PRN 07/25/20 07/25/20 Previous Rx's Medication Instructions Recorded Cephalexin [Keflex] 500 mg PO Q6HR 7 Days #28 cap 07/25/20 Allergies Allergy/AdvReac Type Severity Reaction Status Date / Time diphenhydramine Allergy Confusion Verified 08/20/20 02:19 [From Benadryl] Sulfa (Sulfonamide Allergy Swelling Verified 08/20/20 02:19 Antibiotics) sulfamethoxazole Allergy Swelling Verified 08/20/20 02:19 [From Bactrim] trimethoprim [From Bactrim] Allergy Swelling Verified 08/20/20 02:19 Review of Systems ROS Statement: Those systems with pertinent positive or pertinent negative responses have been documented in the HPI. ROS Other: All systems not noted in ROS Statement are negative. Constitutional: Denies: fever Eyes: Denies: vision change Respiratory: Denies: cough, dyspnea Cardiovascular: Denies: chest pain, palpitations Gastrointestinal: Denies: abdominal pain, vomiting, diarrhea Genitourinary: Denies: dysuria, hematuria Musculoskeletal: Denies: back pain Skin: Denies: rash Neurological: Reports: headache. Denies: weakness, numbness, paresthesias Past Medical History Past Medical History: Asthma, Liver Disease, Seizure Disorder Additional Past Medical History / Comment(s): PTSD, chronic migraines, HX SEIZURES-LAST ONE 11/2019-NOT ON ANY MEDS FOR THEM (PT STATES SEIZURES ARE STRESS INDUCED History of Any Multi-Drug Resistant Organisms: MRSA Date of last positivie culture/infection: 2005 MDRO Source:: leg Past Surgical History: No Surgical Hx Reported Additional Past Surgical History / Comment(s): forehead reconstruction for head lac as child, hernie repair, Past Anesthesia/Blood Transfusion Reactions: No Reported Reaction Past Psychological History: Bipolar, Depression, PTSD, Schizoaffective Disorder Smoking Status: Current every day smoker Past Alcohol Use History: Occasional Past Drug Use History: Marijuana - Past Family History Father Family Medical History: Cancer Additional Family Medical History / Comment(s): ADOPTED-NOT TOTALLY SURE OF HHX Mother Family Medical History: Cancer Additional Family Medical History / Comment(s): ADOPTED-NOT TOTALLY SURE OF HHX General Exam Limitations: no limitations General appearance: alert, in no apparent distress Head exam: Present: atraumatic, normocephalic Eye exam: Present: normal appearance. Absent: scleral icterus, conjunctival injection ENT exam: Present: normal oropharynx Neck exam: Present: normal inspection, full ROM. Absent: tenderness Respiratory exam: Present: normal lung sounds bilaterally. Absent: respiratory distress, wheezes, rales, rhonchi, stridor Cardiovascular Exam: Present: regular rate, normal rhythm, normal heart sounds. Absent: systolic murmur, diastolic murmur, rubs, gallop GI/Abdominal exam: Present: soft. Absent: distended, tenderness, guarding, rebound Extremities exam: Present: normal inspection, normal capillary refill. Absent: pedal edema, calf tenderness Back exam: Present: normal inspection. Absent: vertebral tenderness Neurological exam: Present: alert, CN II-XII intact. Absent: motor sensory d eficit Skin exam: Present: warm, dry, intact, normal color. Absent: rash Course Vital Signs 09/20/20 09/21/20 23:26 00:24 Temperature 98.3 F Pulse Rate 76 77 Respiratory 18 18 Rate Blood Pressure 141/88 142/77 O2 Sat by Pulse 98 98 Oximetry Medical Decision Making - Lab Data Result diagrams: 09/20/20 23:54 09/20/20 23:54 Lab Results 09/20/20 09/20/20 Range/Units 23:54 23:54 WBC 7.0 (3.8-10.6) k/uL RBC 5.48 (4.30-5.90) m/uL Hgb 15.4 (13.0-17.5) gm/dL Hct 47.3 (39.0-53.0) % MCV 86.3 (80.0-100.0) fL MCH 28.1 (25.0-35.0) pg MCHC 32.6 (31.0-37.0) g/dL RDW 13.2 (11.5-15.5) % Plt Count 278 (150-450) k/uL MPV 7.1 Neutrophils % 60 % Lymphocytes % 28 % Monocytes % 7 % Eosinophils % 2 % Basophils % 1 % Neutrophils # 4.2 (1.3-7.7) k/uL Lymphocytes # 2.0 (1.0-4.8) k/uL Monocytes # 0.5 (0-1.0) k/uL Eosinophils # 0.1 (0-0.7) k/uL Basophils # 0.1 (0-0.2) k/uL Sodium 140 (137-145) mmol/L Potassium 4.3 (3.5-5.1) mmol/L Chloride 103 (98-107) mmol/L Carbon Dioxide 27 (22-30) mmol/L Anion Gap 10 mmol/L BUN 11 (9-20) mg/dL Creatinine 0.83 (0.66-1.25) mg/dL Est GFR (CKD-EPI)AfAm >90 (>60 ml/min/1.73 sqM) Est GFR (CKD-EPI)NonAf >90 (>60 ml/min/1.73 sqM) Glucose 109 H (74-99) mg/dL Calcium 9.9 (8.4-10.2) mg/dL Magnesium 2.1 (1.6-2.3) mg/dL Total Bilirubin 0.4 (0.2-1.3) mg/dL AST 66 H (17-59) U/L ALT 99 H (4-49) U/L Alkaline Phosphatase 70 (38-126) U/L Total Protein 7.9 (6.3-8.2) g/dL Albumin 5.0 (3.5-5.0) g/dL Disposition Clinical Impression: Generalized seizure Disposition: HOME SELF-CARE Condition: Good Instructions (If sedation given, give patient instructions): Seizure/Epilepsy Discharge Instructions & Follow-Up, Recurrent Seizures in Adults (ED) Is patient prescribed a controlled substance at d/c from ED?: No Referrals: Marycarmen Gaston MD [Primary Care Provider] - 1-2 days Fdai Martinez MD [STAFF PHYSICIAN] - 1-2 days
== END 2020-09-21 01:15 | disposition home or self-care (01) ==
LOC: EC 23:21
DX: G40.909 Epilepsy, unspecified, not intractable, without status epilepticus (principal); J45.909 Unspecified asthma, uncomplicated; F17.200 Nicotine dependence, unspecified, uncomplicated; Z88.2 Allergy status to sulfonamides; Z88.1 Allergy status to other antibiotic agents; Z88.8 Allergy status to other drugs, medicaments and biological substances; Z79.51 Long term (current) use of inhaled steroids
CPT/HCPCS: 36415; 80053; 83735; 85025; 93005; 96360; 96361; 99285

== ENCOUNTER 2020-11-20 14:00 | Emergency (ER) | payer OTHER ==
[2020-11-20 14:30] VITALS: BP 121/80; PULSE 80; RESP 20; TEMP 98.2
--- NOTE | 2020-11-20 14:56 | XR ---
EXAMINATION TYPE: XR ankle complete RT DATE OF EXAM: 11/20/2020 CLINICAL HISTORY: Pain after crushing injury TECHNIQUE: Frontal, lateral and oblique images of the right ankle are obtained. COMPARISON: None. FINDINGS: There is no acute fracture/dislocation evident in the right ankle. The ankle mortise appe ars within normal limits. The overlying soft tissue appears unremarkable. IMPRESSION: There is no acute fracture or dislocation in the right ankle.
--- NOTE | 2020-11-20 15:15 | ED ---
General Adult HPI - General Chief complaint: Extremity Injury, Upper Stated complaint: R ankle injury Time Seen by Provider: 11/20/20 15:04 Source: patient Mode of arrival: wheelchair Limitations: no limitations - History of Present Illness Initial comments: 30-year-old male presents to emergency Department with a chief complaint of right ankle injury. Patient reports yesterday he was playing basketball when he suffered an inversion injury to his right ankle and now has develops and swelling, mostly in the lateral malleolus. He reports pain is exacerbated with any weightbearing but denies any erythema or ecchymosis. Denies any weakness or paresthesias to the leg. Denies taking medications to relieve the symptoms. - Related Data Home Medications Medication Instructions Recorded Confirmed Loratadine [Claritin] 10 mg PO DAILY 01/28/18 07/25/20 Montelukast [Singulair] 10 mg PO DAILY 01/28/18 07/25/20 ARIPiprazole [Abilify] 10 mg PO DAILY 04/28/20 07/25/20 Albuterol Nebulized [Ventolin 2.5 mg INHALATION RT-Q6H PRN 07/25/20 07/25/20 Nebulized] Albuterol Sulfate [Proair Hfa] 2 puff INHALATION RT-QID PRN 07/25/20 07/25/20 Cholecalciferol (Vitamin D3) 125 mcg PO DAILY 07/25/20 07/25/20 [Vitamin D3 (5000 Iu)] Fluticasone/Salmeterol [Advair Hfa 2 puff INHALATION RT-BID 07/25/20 07/25/20 230-21 Mcg Inhaler] Meclizine HCl 25 mg PO TID PRN 07/25/20 07/25/20 Naproxen [Naprosyn] 500 mg PO Q12HR PRN 07/25/20 07/25/20 Simethicone Chew [Mylicon Chew] 80 mg PO BID PRN 07/25/20 07/25/20 Previous Rx's Medication Instructions Recorded Cephalexin [Keflex] 500 mg PO Q6HR 7 Days #28 cap 07/25/20 Allergies Allergy/AdvReac Type Severity Reaction Status Date / Time diphenhydramine Allergy Confusion Verified 11/20/20 14:28 [From Benadryl] Sulfa (Sulfonamide Allergy Swelling Verified 11/20/20 14:28 Antibiotics) sulfamethoxazole Allergy Swelling Verified 11/20/20 14:28 [From Bactrim] trimethoprim [From Bactrim] Allergy Swelling Verified 11/20/20 14:28 Review of Systems ROS Statement: Those systems with pertinent positive or pertinent negative responses have been documented in the HPI. ROS Other: All systems not noted in ROS Statement are negative. Past Medical History Past Medical History: Asthma, Liver Disease, Seizure Disorder Additional Past Medical History / Comment(s): PTSD, chronic migraines, HX SEIZURES-LAST ONE 11/2019-NOT ON ANY MEDS FOR THEM (PT STATES SEIZURES ARE STRESS INDUCED History of Any Multi-Drug Resistant Organisms: MRSA Date of last positivie culture/infection: 2005 MDRO Source:: leg Past Surgical History: No Surgical Hx Reported Additional Past Surgical History / Comment(s): forehead reconstruction for head lac as child, hernie repair, Past Anesthesia/Blood Transfusion Reactions: No Reported Reaction Past Psychological History: Bipolar, Depression, PTSD, Schizoaffective Disorder Smoking Status: Current every day smoker Past Alcohol Use History: Occasional Past Drug Use History: Marijuana - Past Family History Father Family Medical History: Cancer Additional Family Medical History / Comment(s): ADOPTED-NOT TOTALLY SURE OF HHX Mother Family Medical History: Cancer Additional Family Medical History / Comment(s): ADOPTED-NOT TOTALLY SURE OF HHX General Exam Limitations: no limitations General appearance: alert, in no apparent distress, obese Head exam: Present: atraumatic, normocephalic, normal inspection Eye exam: Present: normal appearance Pupils: Present: normal accommodation ENT exam: Present: normal exam, normal oropharynx, mucous membranes moist Neck exam: Present: normal inspection, full ROM. Absent: tenderness Respiratory exam: Present: normal lung sounds bilaterally. Absent: respiratory distress, wheezes, rales, rhonchi, stridor Cardiovascular Exam: Present: regular rate, normal rhythm, normal heart sounds. Absent: systolic murmur Extremities exam: Present: normal inspection, tenderness (Lateral malleolus tenderness), normal capillary refill, joint swelling (Right ankle), other (Palpable DP and PT bilaterally.). Absent: full ROM (Limited range of motion with inversion and eversion in the right ankle), pedal edema, calf tenderness Back exam: Present: normal inspection, full ROM. Absent: tenderness Neurological exam: Present: alert, oriented X3 Psychiatric exam: Present: normal affect, normal mood Skin exam: Present: warm, dry, intact, normal color Course Vital Signs 11/20/20 14:29 Temperature 98.2 F Pulse Rate 80 Respiratory 20 Rate Blood Pressure 121/80 O2 Sat by Pulse 97 Oximetry Procedures - Orthopedic Splinting/Casting Injury #1 Side: right Lower Extremity Injury Location: ankle Lower Extremity Immobilizer: stirrup splint Medical Decision Making - Medical Decision Making 30-year-old male presents to emergency with chief complaint of an ankle injury. On physical examination, he is neurovascularly intact. X-rays unremarkable. Ankle stirrup was applied. Alfonso wrap was also applied. Patient advised to follow-up with flight communications specialist. Return parameters were discussed patient is an ascending and agreeable. Disposition Clinical Impression: Right ankle sprain Disposition: HOME SELF-CARE Condition: Stable Instructions (If sedation given, give patient instructions): Ankle Sprain (ED) Additional Instructions: Follow-up with flight communications specialist. Return to emergency department if symptoms worsen. Is patient prescribed a controlled substance at d/c from ED?: No Referrals: Marycarmen Gaston MD [Primary Care Provider] - 1-2 days Ned Boyle DO [Doctor of Osteopathic Medicine] - 1-2 days Time of Disposition: 15:15
== END 2020-11-20 15:56 | disposition home or self-care (01) ==
LOC: EC 14:00
DX: S93.401A Sprain of unspecified ligament of right ankle, initial encounter (principal); F17.200 Nicotine dependence, unspecified, uncomplicated; J45.909 Unspecified asthma, uncomplicated; Z88.1 Allergy status to other antibiotic agents; Z88.2 Allergy status to sulfonamides; Z79.51 Long term (current) use of inhaled steroids; Z88.8 Allergy status to other drugs, medicaments and biological substances; X50.1XXA Overexertion from prolonged static or awkward postures, initial encounter; Y93.67 Activity, basketball
CPT/HCPCS: 29515; 99283

== ENCOUNTER 2021-08-12 21:06 | Emergency (ER) | payer OTHER ==
[2021-08-12 21:34] VITALS: RESP 18
[2021-08-12] MEDS ORDERED: SODIUM CHLORIDE 0.9% 500 ML 500 ML IV STA (21:42)
--- NOTE | 2021-08-12 21:43 | ED ---
Seizure HPI - General Chief Complaint: Seizure Stated Complaint: Seizure Time Seen by Provider: 08/12/21 21:30 Source: patient, RN/MD, EMS, RN notes reviewed, old records reviewed Mode of arrival: EMS Limitations: no limitations - History of Present Illness Initial Comments: 31-year-old patient presents to the emergency room after having a seizure today. He does have a history of seizures but does not take any medication. He also has a history of asthma, PTSD, bipolar and depression. He denies any bowel or bladder incontinence. He denies any pain, no head trauma. He states that the last thing he remembers was drinking alcohol with his family. MD Complaint: seizure -: hour(s) (Approximately one hour ago) Description of Episode: loss of consciousness, post-event confusion Witnessed: yes - by bystander Trauma: No Seizure History: known seizure disorder Place: home Associated Symptoms: denies other symptoms Treatments Prior to Arrival: other (iv) - Related Data Home Medications Medication Instructions Recorded Confirmed Loratadine [Claritin] 10 mg PO DAILY 01/28/18 07/25/20 Montelukast [Singulair] 10 mg PO DAILY 01/28/18 07/25/20 ARIPiprazole [Abilify] 10 mg PO DAILY 04/28/20 07/25/20 Albuterol Nebulized [Ventolin 2.5 mg INHALATION RT-Q6H PRN 07/25/20 07/25/20 Nebulized] Albuterol Sulfate [Proair Hfa] 2 puff INHALATION RT-QID PRN 07/25/20 07/25/20 Cholecalciferol (Vitamin D3) 125 mcg PO DAILY 07/25/20 07/25/20 [Vitamin D3 (5000 Iu)] Fluticasone/Salmeterol [Advair Hfa 2 puff INHALATION RT-BID 07/25/20 07/25/20 230-21 Mcg Inhaler] Meclizine HCl 25 mg PO TID PRN 07/25/20 07/25/20 Naproxen [Naprosyn] 500 mg PO Q12HR PRN 07/25/20 07/25/20 Simethicone Chew [Mylicon Chew] 80 mg PO BID PRN 07/25/20 07/25/20 Previous Rx's Medication Instructions Recorded Cephalexin [Keflex] 500 mg PO Q6HR 7 Days #28 cap 07/25/20 Allergies Allergy/AdvReac Type Severity Reaction Status Date / Time diphenhydramine Allergy Confusion Verified 08/12/21 21:34 [From Benadryl] Sulfa (Sulfonamide Allergy Swelling Verified 08/12/21 21:34 Antibiotics) sulfamethoxazole Allergy Swelling Verified 08/12/21 21:34 [From Bactrim] trimethoprim [From Bactrim] Allergy Swelling Verified 08/12/21 21:34 Review of Systems ROS Statement: Those systems with pertinent positive or pertinent negative responses have been documented in the HPI. ROS Other: All systems not noted in ROS Statement are negative. Past Medical History Past Medical History: Asthma, Liver Disease, Seizure Disorder Additional Past Medical History / Comment(s): PTSD, chronic migraines, HX SEIZURES-LAST ONE 11/2019-NOT ON ANY MEDS FOR THEM (PT STATES SEIZURES ARE STRESS INDUCED History of Any Multi-Drug Resistant Organisms: MRSA Date of last positivie culture/infection: 2005 MDRO Source:: leg Past Surgical History: No Surgical Hx Reported Additional Past Surgical History / Comment(s): forehead reconstruction for head lac as child, hernie repair, Past Anesthesia/Blood Transfusion Reactions: No Reported Reaction Past Psychological History: Bipolar, Depression, PTSD, Schizoaffective Disorder Smoking Status: Current every day smoker Past Alcohol Use History: Occasional Past Drug Use History: Marijuana - Past Family History Father Family Medical History: Cancer Additional Family Medical History / Comment(s): ADOPTED-NOT TOTALLY SURE OF HHX Mother Family Medical History: Cancer Additional Family Medical History / Comment(s): ADOPTED-NOT TOTALLY SURE OF HHX General Exam Limitations: no limitations General appearance: alert, in no apparent distress Head exam: Present: atraumatic, normocephalic, normal inspection Eye exam: Present: normal appearance, PERRL. Absent: scleral icterus, conjunctival injection, nystagmus, periorbital swelling, periorbital tenderness ENT exam: Present: normal exam, normal oropharynx, mucous membranes moist Neck exam: Present: normal inspection. Absent: tenderness, meningismus Respiratory exam: Present: normal lung sounds bilaterally. Absent: respiratory distress, accessory muscle use Cardiovascular Exam: Present: regular rate, normal rhythm GI/Abdominal exam: Present: soft. Absent: distended, tenderness, rigid Extremities exam: Present: normal inspection, normal capillary refill. Absent: tenderness, pedal edema Back exam: Present: normal inspection. Absent: tenderness, CVA tenderness (R), CVA tenderness (L), rash noted Neurological exam: Present: alert, oriented X3 (person and place, slow to respond postictal), CN II-XII intact Expanded Patient oriented to: Present: person, place Speech: Present: fluid speech Cranial nerves: EOM's Intact: Normal, Gag Reflex: Normal, Tongue Deviation: Normal Motor strength exam: RUE: 4, LUE: 5, RLE: 4, LLE: 5 Eye Response: (4) open spontaneously Motor Response: (6) obeys commands Verbal Response: (5) oriented [place] Total: 15 Psychiatric exam: Present: normal affect, normal mood Skin exam: Present: warm, dry, normal color. Absent: cyanosis, diaphoretic, pallor Course Vital Signs 08/12/21 08/12/21 08/13/21 21:29 23:09 00:06 Temperature 98.5 F 98.2 F Pulse Rate 91 82 84 Respiratory 18 18 18 Rate Blood Pressure 123/77 118/60 125/63 O2 Sat by Pulse 96 97 97 Oximetry Medical Decision Making - Medical Decision Making Patient presents with seizure today. He has a history of seizures. There is no head trauma no headache. No nausea or vomiting. He is not on seizure medications. Patient does have mild right-sided weakness likely Ladarius's paralysis as he has no other focal neurological deficits. Cranial nerves are intact. Speech is clear. Vital signs are stable. He is tolerating oral fluid. He'll be discharged home to follow up with his primary care doctor and return to the emergency room with any new or concerning symptoms. Case discussed with Dr. Crump - Lab Data Result diagrams: 08/12/21 21:52 08/12/21 21:52 Lab Results 08/12/21 08/12/21 08/12/21 Range/Units 21:52 21:52 23:35 WBC 7.1 (3.8-10.6) k/uL RBC 5.24 (4.30-5.90) m/uL Hgb 15.2 (13.0-17.5) gm/dL Hct 46.1 (39.0-53.0) % MCV 88.0 (80.0-100.0) fL MCH 29.1 (25.0-35.0) pg MCHC 33.0 (31.0-37.0) g/dL RDW 13.3 (11.5-15.5) % Plt Count 249 (150-450) k/uL MPV 7.5 Neutrophils % 66 % Lymphocytes % 24 % Monocytes % 7 % Eosinophils % 1 % Basophils % 1 % Neutrophils # 4.7 (1.3-7.7) k/uL Lymphocytes # 1.7 (1.0-4.8) k/uL Monocytes # 0.5 (0-1.0) k/uL Eosinophils # 0.1 (0-0.7) k/uL Basophils # 0.0 (0-0.2) k/uL Sodium 139 (137-145) mmol/L Potassium 4.1 (3.5-5.1) mmol/L Chloride 105 (98-107) mmol/L Carbon Dioxide 26 (22-30) mmol/L Anion Gap 8 mmol/L BUN 14 (9-20) mg/dL Creatinine 0.98 (0.66-1.25) mg/dL Est GFR (CKD-EPI)AfAm >90 (>60 ml/min/1.73 sqM) Est GFR (CKD-EPI)NonAf >90 (>60 ml/min/1.73 sqM) Glucose 92 (74-99) mg/dL Calcium 9.3 (8.4-10.2) mg/dL Magnesium 2.0 (1.6-2.3) mg/dL Total Bilirubin 0.6 (0.2-1.3) mg/dL AST 65 H (17-59) U/L ALT 96 H (4-49) U/L Alkaline Phosphatase 74 (38-126) U/L Total Protein 7.6 (6.3-8.2) g/dL Albumin 4.7 (3.5-5.0) g/dL Urine Color Yellow Urine Appearance Clear (Clear) Urine pH 5.5 (5.0-8.0) Ur Specific [place] 1.023 (1.001-1.035) Urine Protein 1+ H (Negative) Urine Glucose (UA) Negative (Negative) Urine Ketones 1+ H (Negative) Urine Blood Negative (Negative) Urine Nitrite Negative (Negative) Urine Bilirubin Negative (Negative) Urine Urobilinogen <2.0 (<2.0) mg/dL Ur Leukocyte Esterase Small H (Negative) Urine RBC 1 (0-5) /hpf Urine WBC 12 H (0-5) /hpf Ur Squamous Epith Cells <1 (0-4) /hpf Hyaline Casts 1 (0-2) /lpf Urine Mucus Moderate H (None) /hpf Urine Opiates Screen Not Detected (NotDetected) Ur Oxycodone Screen Not Detected (NotDetected) Urine Methadone Screen Not Detected (NotDetected) Ur Propoxyphene Screen Not Detected (NotDetected) Ur Barbiturates Screen Not Detected (NotDetected) U Tricyclic Antidepress Not Detected (NotDetected) Ur Phencyclidine Scrn Not Detected (NotDetected) Ur Amphetamines Screen Not Detected (NotDetected) U Methamphetamines Scrn Not Detected (NotDetected) U Benzodiazepines Scrn Not Detected (NotDetected) Urine Cocaine Screen Not Detected (NotDetected) U Marijuana (THC) Screen Not Detected (NotDetected) Serum Alcohol <10 mg/dL Disposition Clinical Impression: Generalized seizure, Ladarius's paralysis (postepileptic) Disposition: HOME SELF-CARE Instructions (If sedation given, give patient instructions): Seizure/Epilepsy Discharge Instructions & Follow-Up, Recurrent Seizures in Adults (ED) Additional Instructions: Follow-up with your primary care doctor next week regarding recurrent seizures. Return to the emergency room with any new or concerning symptoms. Is patient prescribed a controlled substance at d/c from ED?: No Referrals: Marycarmen Gaston MD [Primary Care Provider] - 1-2 days Yodit Hillman MD [STAFF PHYSICIAN] - 1-2 days Time of Disposition: 00:11
[2021-08-12 22:30] LABS: ALT 96 U/L (4-49); AST 65 U/L (17-59); African American GFR (CKD) >90 (>60 ml/min/1.73 sqM); Albumin 4.7 g/dL (3.5-5.0); Alcohol <10 mg/dL; Alkaline Phosphatase 74 U/L (38-126); Anion Gap 8 mmol/L; Blood Urea Nitrogen 14 mg/dL (9-20); Calcium 9.3 mg/dL (8.4-10.2); Carbon Dioxide 26 mmol/L (22-30); Chloride 105 mmol/L (98-107); Glucose 92 mg/dL (74-99); Non-African American GFR(CKD) >90 (>60 ml/min/1.73 sqM); Potassium 4.1 mmol/L (3.5-5.1); Sodium 139 mmol/L (137-145); Total Bilirubin 0.6 mg/dL (0.2-1.3); Total Protein 7.6 g/dL (6.3-8.2)
[2021-08-12 22:43] LABS: Basophils % (A) 1 %; Eosinophils # (A) 0.1 k/uL (0-0.7); Eosinophils % (A) 1 %; HCT 46.1 % (39.0-53.0); HGB 15.2 gm/dL (13.0-17.5); Lymphocytes # (A) 1.7 k/uL (1.0-4.8); Lymphocytes % (A) 24 %; MCH 29.1 pg (25.0-35.0); Mean Platelet Volume 7.5; Monocytes # (A) 0.5 k/uL (0-1.0); Monocytes % (A) 7 %; Neutrophils # (A) 4.7 k/uL (1.3-7.7); Neutrophils % (A) 66 %; Platelet Count 249 k/uL (150-450); RBC 5.24 m/uL (4.30-5.90); RDW 13.3 % (11.5-15.5); WBC 7.1 k/uL (3.8-10.6)
[2021-08-13 00:02] LABS: Appearance,Urine Clear (Clear); Bilirubin,Urine Negative (Negative); Blood,Urine Negative (Negative); Color,Urine Yellow; Glucose,Urine (UA) Negative (Negative); Hyaline Casts,Urine 1 /lpf (0-2); Ketones,Urine 1+ (Negative); Leukocyte Esterase,Urine Small (Negative); Mucus,Urine Moderate /hpf; Nitrite,Urine Negative (Negative); PH, Urine 5.5 (5.0-8.0); Protein,Urine 1+ (Negative); RBC,Urine 1 /hpf (0-5); Specific Gravity,Urine 1.023 (1.001-1.035); Squamous Epithelial Cell,Urine <1 /hpf (0-4); Urobilinogen,Urine <2.0 mg/dL (<2.0); WBC,Urine 12 /hpf (0-5)
[2021-08-13 00:06] VITALS: BP 125/63; PULSE 84; TEMP 98.2
[2021-08-13 00:19] LABS: Amphetamine Screen,Urine Not Detected (NotDetected); Barbiturate Screen,Urine Not Detected (NotDetected); Benzodiazepines Screen,Urine Not Detected (NotDetected); Cocaine Screen,Urine Not Detected (NotDetected); Methadone Screen, Urine Not Detected (NotDetected); Opiate Screen,Urine Not Detected (NotDetected); Oxycodone Screen, Urine Not Detected (NotDetected); Phencyclidine Screen,Urine Not Detected (NotDetected); Tricyclic Antidepressant,Urine Not Detected (NotDetected); Urn Cannabinoid Scrn Not Detected (NotDetected)
== END 2021-08-13 00:30 | disposition home or self-care (01) ==
LOC: EC 21:06
DX: R56.9 Unspecified convulsions (principal); G83.84 Todd's paralysis (postepileptic); J45.909 Unspecified asthma, uncomplicated; F17.200 Nicotine dependence, unspecified, uncomplicated; Z88.2 Allergy status to sulfonamides; Z88.8 Allergy status to other drugs, medicaments and biological substances; Z88.1 Allergy status to other antibiotic agents
CPT/HCPCS: 36415; 80053; 83735; 85025; 81001; 80306; 99285; G0480; 80320

== ENCOUNTER 2021-10-26 22:57 | Emergency (ER) | payer OTHER ==
[2021-10-26 23:08] VITALS: BP 140/99; PULSE 90; RESP 14; TEMP 97.9
[2021-10-26] MEDS ORDERED: KETOROLAC 15 MG/ML 1 ML VIAL IVP STA (23:43)
[2021-10-27 00:23] LABS: Basophils % (A) 1 %; Eosinophils # (A) 0.2 k/uL (0-0.7); Eosinophils % (A) 2 %; HGB 14.7 gm/dL (13.0-17.5); Lymphocytes # (A) 2.5 k/uL (1.0-4.8); Lymphocytes % (A) 30 %; MCH 28.5 pg (25.0-35.0); MCHC 32.7 g/dL (31.0-37.0); MCV 87.2 fL (80.0-100.0); Mean Platelet Volume 7.3; Monocytes # (A) 0.6 k/uL (0-1.0); Monocytes % (A) 7 %; Neutrophils # (A) 4.8 k/uL (1.3-7.7); Neutrophils % (A) 59 %; Platelet Count 234 k/uL (150-450); RBC 5.16 m/uL (4.30-5.90); RDW 12.6 % (11.5-15.5); WBC 8.2 k/uL (3.8-10.6)
[2021-10-27 00:28] LABS: ALT 79 U/L (4-49); AST 55 U/L (17-59); African American GFR (CKD) >90 (>60 ml/min/1.73 sqM); Albumin 4.6 g/dL (3.5-5.0); Alcohol <10 mg/dL; Alkaline Phosphatase 70 U/L (38-126); Anion Gap 13 mmol/L; Blood Urea Nitrogen 10 mg/dL (9-20); Calcium 9.3 mg/dL (8.4-10.2); Carbon Dioxide 21 mmol/L (22-30); Chloride 106 mmol/L (98-107); Glucose 129 mg/dL (74-99); Magnesium 1.9 mg/dL (1.6-2.3); Non-African American GFR(CKD) >90 (>60 ml/min/1.73 sqM); Potassium 3.7 mmol/L (3.5-5.1); Sodium 140 mmol/L (137-145); Total Bilirubin 0.7 mg/dL (0.2-1.3); Total Protein 7.2 g/dL (6.3-8.2)
[2021-10-27] MEDS ORDERED: LORazepam 2 MG/ML INJ IV STA (01:07)
--- NOTE | 2021-10-27 01:26 | ED ---
Seizure HPI - General Chief Complaint: Seizure Stated Complaint: Seizure Time Seen by Provider: 10/26/21 23:08 Source: EMS Mode of arrival: EMS Limitations: altered mental status - History of Present Illness Initial Comments: Patient is 31-year-old man who is brought by ambulance to evaluation possible seizure. He was having some shaking movements while at his sisters home. When I review the patient, he is alert and reports that he had a seizure. He recalls the episode. No injury. MD Complaint: possible seizure -: minutes(s) Description of Episode: tonic-clonic movement -: second(s) Witnessed: yes - by bystander Seizure History: known seizure disorder Place: home Possible Precipitating Event: none Associated Symptoms: denies other symptoms - Related Data Home Medications Medication Instructions Recorded Confirmed Loratadine [Claritin] 10 mg PO DAILY 01/28/18 07/25/20 Montelukast [Singulair] 10 mg PO DAILY 01/28/18 07/25/20 ARIPiprazole [Abilify] 10 mg PO DAILY 04/28/20 07/25/20 Albuterol Nebulized [Ventolin 2.5 mg INHALATION RT-Q6H PRN 07/25/20 07/25/20 Nebulized] Albuterol Sulfate [Proair Hfa] 2 puff INHALATION RT-QID PRN 07/25/20 07/25/20 Cholecalciferol (Vitamin D3) 125 mcg PO DAILY 07/25/20 07/25/20 [Vitamin D3 (5000 Iu)] Fluticasone Propion/Salmeterol 2 puff INHALATION RT-BID 07/25/20 07/25/20 [Advair Hfa 230-21 Mcg Inhaler] Meclizine HCl 25 mg PO TID PRN 07/25/20 07/25/20 Naproxen [Naprosyn] 500 mg PO Q12HR PRN 07/25/20 07/25/20 Simethicone Chew [Mylicon Chew] 80 mg PO BID PRN 07/25/20 07/25/20 Previous Rx's Medication Instructions Recorded Cephalexin [Keflex] 500 mg PO Q6HR 7 Days #28 cap 07/25/20 Allergies Allergy/AdvReac Type Severity Reaction Status Date / Time diphenhydramine Allergy Confusion Verified 08/12/21 21:34 [From Benadryl] Sulfa (Sulfonamide Allergy Swelling Verified 08/12/21 21:34 Antibiotics) sulfamethoxazole Allergy Swelling Verified 08/12/21 21:34 [From Bactrim] trimethoprim [From Bactrim] Allergy Swelling Verified 08/12/21 21:34 Review of Systems ROS Statement: Those systems with pertinent positive or pertinent negative responses have been documented in the HPI. ROS Other: All systems not noted in ROS Statement are negative. Constitutional: Denies: fever Eyes: Denies: vision change Respiratory: Denies: cough, dyspnea Cardiovascular: Denies: chest pain, palpitations Gastrointestinal: Denies: abdominal pain, vomiting, diarrhea Genitourinary: Denies: dysuria, hematuria Musculoskeletal: Denies: back pain Skin: Denies: rash Neurological: Denies: headache, weakness Past Medical History Past Medical History: Asthma, Liver Disease, Seizure Disorder Additional Past Medical History / Comment(s): PTSD, chronic migraines, HX SEIZURES-LAST ONE 11/2019-NOT ON ANY MEDS FOR THEM (PT STATES SEIZURES ARE STRESS INDUCED History of Any Multi-Drug Resistant Organisms: MRSA Date of last positivie culture/infection: 2005 MDRO Source:: leg Past Surgical History: No Surgical Hx Reported Additional Past Surgical History / Comment(s): forehead reconstruction for head lac as child, hernie repair, Past Anesthesia/Blood Transfusion Reactions: No Reported Reaction Past Psychological History: Bipolar, Depression, PTSD, Schizoaffective Disorder Smoking Status: Current every day smoker Past Alcohol Use History: Occasional Past Drug Use History: Marijuana - Past Family History Father Family Medical History: Cancer Additional Family Medical History / Comment(s): ADOPTED-NOT TOTALLY SURE OF HHX Mother Family Medical History: Cancer Additional Family Medical History / Comment(s): ADOPTED-NOT TOTALLY SURE OF HHX General Exam Limitations: altered mental status General appearance: alert, in no apparent distress Head exam: Present: atraumatic, normocephalic Eye exam: Present: normal appearance, PERRL, EOMI. Absent: scleral icterus, conjunctival injection, nystagmus Neck exam: Present: normal inspection, full ROM. Absent: tenderness Respiratory exam: Present: normal lung sounds bilaterally. Absent: respiratory distress, wheezes, rales, rhonchi, stridor Cardiovascular Exam: Present: regular rate, normal rhythm, normal heart sounds. Absent: systolic murmur, diastolic murmur, rubs, gallop GI/Abdominal exam: Present: soft. Absent: distended, tenderness, guarding Extremities exam: Present: normal inspection Back exam: Present: normal inspection. Absent: CVA tenderness (R), CVA tenderness (L) Neurological exam: Present: alert, oriented X3, CN II-XII intact. Absent: motor sensory deficit Skin exam: Present: warm, dry, intact, normal color. Absent: rash Course Vital Signs 10/26/21 23:05 Temperature 97.9 F Pulse Rate 90 Respiratory 14 Rate Blood Pressure 140/99 O2 Sat by Pulse 97 Oximetry Medical Decision Making - Medical Decision Making Patient is 31-year-old man brought to have evaluation for suspected seizure. He did have another episode while here in emergency department and it does not appear to be epileptic in nature. 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 Included to have follow-up with his physician. - Lab Data Result diagrams: 10/26/21 23:58 10/26/21 23:58 Lab Results 10/26/21 10/26/21 Range/Units 23:58 23:58 WBC 8.2 (3.8-10.6) k/uL RBC 5.16 (4.30-5.90) m/uL Hgb 14.7 (13.0-17.5) gm/dL Hct 45.0 (39.0-53.0) % MCV 87.2 (80.0-100.0) fL MCH 28.5 (25.0-35.0) pg MCHC 32.7 (31.0-37.0) g/dL RDW 12.6 (11.5-15.5) % Plt Count 234 (150-450) k/uL MPV 7.3 Neutrophils % 59 % Lymphocytes % 30 % Monocytes % 7 % Eosinophils % 2 % Basophils % 1 % Neutrophils # 4.8 (1.3-7.7) k/uL Lymphocytes # 2.5 (1.0-4.8) k/uL Monocytes # 0.6 (0-1.0) k/uL Eosinophils # 0.2 (0-0.7) k/uL Basophils # 0.0 (0-0.2) k/uL Sodium 140 (137-145) mmol/L Potassium 3.7 (3.5-5.1) mmol/L Chloride 106 (98-107) mmol/L Carbon Dioxide 21 L (22-30) mmol/L Anion Gap 13 mmol/L BUN 10 (9-20) mg/dL Creatinine 0.98 (0.66-1.25) mg/dL Est GFR (CKD-EPI)AfAm >90 (>60 ml/min/1.73 sqM) Est GFR (CKD-EPI)NonAf >90 (>60 ml/min/1.73 sqM) Glucose 129 H (74-99) mg/dL Calcium 9.3 (8.4-10.2) mg/dL Magnesium 1.9 (1.6-2.3) mg/dL Total Bilirubin 0.7 (0.2-1.3) mg/dL AST 55 (17-59) U/L ALT 79 H (4-49) U/L Alkaline Phosphatase 70 (38-126) U/L Total Protein 7.2 (6.3-8.2) g/dL Albumin 4.6 (3.5-5.0) g/dL Serum Alcohol <10 mg/dL Disposition Clinical Impression: Generalized seizure Disposition: HOME SELF-CARE Condition: Good Instructions (If sedation given, give patient instructions): Seizure/Epilepsy Discharge Instructions & Follow-Up, Recurrent Seizures in Adults (ED) Is patient prescribed a controlled substance at d/c from ED?: No Referrals: Marycarmen Gaston MD [Primary Care Provider] - 1-2 days
== END 2021-10-27 02:03 | disposition home or self-care (01) ==
LOC: EC 22:57
DX: G40.409 Other generalized epilepsy and epileptic syndromes, not intractable, without status epilepticus (principal); F17.200 Nicotine dependence, unspecified, uncomplicated; J45.909 Unspecified asthma, uncomplicated; Z88.8 Allergy status to other drugs, medicaments and biological substances; Z88.2 Allergy status to sulfonamides; Z79.899 Other long term (current) drug therapy; Z79.51 Long term (current) use of inhaled steroids
CPT/HCPCS: 36415; 93005; 80053; 83735; 85025; 99284; 96374; 96375; G0480; J2060; J1885; 80320

== ENCOUNTER 2022-02-23 22:23 | Observation (INO) | payer OTHER ==
[2022-02-23] MEDS ORDERED: LORazepam 2 MG/ML INJ IM STA (22:58)
[2022-02-23] MEDS ORDERED: levETIRAcetam IV 750 MG in SODIUM CHLORIDE 0.9% 100 ML IVPB STA (23:10)
[2022-02-23 23:12] VITALS: TEMP 98.8
[2022-02-23] MEDS ORDERED: SODIUM CHLORIDE 0.9% 1,000 ML IV STA (23:12)
[2022-02-23] MEDS ORDERED: SODIUM CHLORIDE 0.9% 1,000 ML IV SCH (23:45)
[2022-02-23 23:46] LABS: Basophils # (A) 0.1 k/uL (0-0.2); Basophils % (A) 1 %; Eosinophils # (A) 0.1 k/uL (0-0.7); Eosinophils % (A) 2 %; HCT 44.4 % (39.0-53.0); HGB 15.3 gm/dL (13.0-17.5); Lymphocytes # (A) 2.2 k/uL (1.0-4.8); Lymphocytes % (A) 28 %; MCH 29.1 pg (25.0-35.0); MCHC 34.6 g/dL (31.0-37.0); Mean Platelet Volume 7.3; Monocytes # (A) 0.7 k/uL (0-1.0); Monocytes % (A) 9 %; Neutrophils # (A) 4.6 k/uL (1.3-7.7); Neutrophils % (A) 59 %; Platelet Count 223 k/uL (150-450); RBC 5.28 m/uL (4.30-5.90); RDW 12.2 % (11.5-15.5); WBC 7.7 k/uL (3.8-10.6)
[2022-02-23] MEDS ORDERED: NALOXONE 0.4 MG/ML 1 ML VIAL IV PRN (23:47)
[2022-02-23 23:54] LABS: ALT 63 U/L (4-49); AST 46 U/L (17-59); African American GFR (CKD) >90 (>60 ml/min/1.73 sqM); Albumin 4.6 g/dL (3.5-5.0); Alkaline Phosphatase 71 U/L (38-126); Anion Gap 7 mmol/L; Blood Urea Nitrogen 14 mg/dL (9-20); Calcium 9.1 mg/dL (8.4-10.2); Carbon Dioxide 28 mmol/L (22-30); Chloride 104 mmol/L (98-107); Glucose 91 mg/dL (74-99); Non-African American GFR(CKD) >90 (>60 ml/min/1.73 sqM); Sodium 139 mmol/L (137-145); Total Bilirubin 0.3 mg/dL (0.2-1.3); Total Protein 7.4 g/dL (6.3-8.2)
[2022-02-24] MEDS ORDERED: LORazepam 2 MG/ML INJ IV PRN ×2 (00:13→01:24)
[2022-02-24 00:24] VITALS: BP 116/79; PULSE 87; RESP 16
--- NOTE | 2022-02-24 00:24 | ED ---
Seizure HPI - General Chief Complaint: Seizure Stated Complaint: Seizures Time Seen by Provider: 02/23/22 22:46 Source: EMS Mode of arrival: EMS Limitations: altered mental status - History of Present Illness Initial Comments: Patient is a 32-year-old male who presents to the emergency department after seizure. Patient has known history and is not on antiepileptic medication. According to patient had 4 seizures prior to arrival. She does not not long they lasted. She denies head trauma. She believes prior to today his last seizure was a few months ago. She does not know if he has a neurologist. - Related Data Home Medications Medication Instructions Recorded Confirmed Loratadine [Claritin] 10 mg PO DAILY 01/28/18 07/25/20 Montelukast [Singulair] 10 mg PO DAILY 01/28/18 07/25/20 ARIPiprazole [Abilify] 10 mg PO DAILY 04/28/20 07/25/20 Albuterol Nebulized [Ventolin 2.5 mg INHALATION RT-Q6H PRN 07/25/20 07/25/20 Nebulized] Albuterol Sulfate [Proair Hfa] 2 puff INHALATION RT-QID PRN 07/25/20 07/25/20 Cholecalciferol (Vitamin D3) 125 mcg PO DAILY 07/25/20 07/25/20 [Vitamin D3 (5000 Iu)] Fluticasone Propion/Salmeterol 2 puff INHALATION RT-BID 07/25/20 07/25/20 [Advair Hfa 230-21 Mcg Inhaler] Meclizine HCl 25 mg PO TID PRN 07/25/20 07/25/20 Naproxen [Naprosyn] 500 mg PO Q12HR PRN 07/25/20 07/25/20 Simethicone Chew [Mylicon Chew] 80 mg PO BID PRN 07/25/20 07/25/20 Previous Rx's Medication Instructions Recorded Cephalexin [Keflex] 500 mg PO Q6HR 7 Days #28 cap 07/25/20 Allergies Allergy/AdvReac Type Severity Reaction Status Date / Time diphenhydramine Allergy Confusion Verified 08/12/21 21:34 [From Benadryl] Sulfa (Sulfonamide Allergy Swelling Verified 08/12/21 21:34 Antibiotics) sulfamethoxazole Allergy Swelling Verified 08/12/21 21:34 [From Bactrim] trimethoprim [From Bactrim] Allergy Swelling Verified 08/12/21 21:34 Review of Systems ROS Statement: Those systems with pertinent positive or pertinent negative responses have been documented in the HPI. ROS Other: All systems not noted in ROS Statement are negative. Past Medical History Past Medical History: Asthma, Liver Disease, Seizure Disorder Additional Past Medical History / Comment(s): PTSD, chronic migraines, HX SEIZURES-LAST ONE 11/2019-NOT ON ANY MEDS FOR THEM (PT STATES SEIZURES ARE STRESS INDUCED History of Any Multi-Drug Resistant Organisms: MRSA Date of last positivie culture/infection: 2005 MDRO Source:: leg Past Surgical History: No Surgical Hx Reported Additional Past Surgical History / Comment(s): forehead reconstruction for head lac as child, hernie repair, Past Anesthesia/Blood Transfusion Reactions: No Reported Reaction Past Psychological History: Bipolar, Depression, PTSD, Schizoaffective Disorder Smoking Status: Current every day smoker Past Alcohol Use History: Occasional Past Drug Use History: Marijuana - Past Family History Father Family Medical History: Cancer Additional Family Medical History / Comment(s): ADOPTED-NOT TOTALLY SURE OF HHX Mother Family Medical History: Cancer Additional Family Medical History / Comment(s): ADOPTED-NOT TOTALLY SURE OF HHX General Exam Limitations: altered mental status General appearance: lethargic Head exam: Present: atraumatic, normocephalic, normal inspection Eye exam: Present: normal appearance, PERRL, EOMI. Absent: scleral icterus, conjunctival injection, periorbital swelling Respiratory exam: Present: normal lung sounds bilaterally. Absent: respiratory distress, wheezes, rales, rhonchi, stridor Cardiovascular Exam: Present: regular rate, normal rhythm, normal heart sounds. Absent: systolic murmur, diastolic murmur, rubs, gallop, clicks Neurological exam: Present: altered Course Vital Signs 02/23/22 02/23/22 23:07 23:34 Temperature 98.8 F Pulse Rate 87 82 Respiratory 18 18 Rate Blood Pressure 120/50 99/56 O2 Sat by Pulse 99 97 Oximetry Medical Decision Making - Medical Decision Making This is a 32-year-old presenting after seizure. During my evaluation patient is initially sleeping and then he does appear to endorse tonic-clonic seizure activity. Seizure lasted for about 3 minutes, 2 mg IV Ativan given with resolution. Patient remained asleep afterwards. PERRL. vitals stable. Loading dose of Keppra given. Patient to be admitted for recurrent seizures. Case discussed with Dr. Kathleen who accepts admission. Neurology on consult. Dr. Corea is my attending. - Lab Data Result diagrams: 02/23/22 23:34 02/23/22 23:34 Lab Results 02/23/22 02/23/22 Range/Units 23:34 23:34 WBC 7.7 (3.8-10.6) k/uL RBC 5.28 (4.30-5.90) m/uL Hgb 15.3 (13.0-17.5) gm/dL Hct 44.4 (39.0-53.0) % MCV 84.0 (80.0-100.0) fL MCH 29.1 (25.0-35.0) pg MCHC 34.6 (31.0-37.0) g/dL RDW 12.2 (11.5-15.5) % Plt Count 223 (150-450) k/uL MPV 7.3 Neutrophils % 59 % Lymphocytes % 28 % Monocytes % 9 % Eosinophils % 2 % Basophils % 1 % Neutrophils # 4.6 (1.3-7.7) k/uL Lymphocytes # 2.2 (1.0-4.8) k/uL Monocytes # 0.7 (0-1.0) k/uL Eosinophils # 0.1 (0-0.7) k/uL Basophils # 0.1 (0-0.2) k/uL Sodium 139 (137-145) mmol/L Potassium 4.0 (3.5-5.1) mmol/L Chloride 104 (98-107) mmol/L Carbon Dioxide 28 (22-30) mmol/L Anion Gap 7 mmol/L BUN 14 (9-20) mg/dL Creatinine 0.95 (0.66-1.25) mg/dL Est GFR (CKD-EPI)AfAm >90 (>60 ml/min/1.73 sqM) Est GFR (CKD-EPI)NonAf >90 (>60 ml/min/1.73 sqM) Glucose 91 (74-99) mg/dL Calcium 9.1 (8.4-10.2) mg/dL Total Bilirubin 0.3 (0.2-1.3) mg/dL AST 46 (17-59) U/L ALT 63 H (4-49) U/L Alkaline Phosphatase 71 (38-126) U/L Total Protein 7.4 (6.3-8.2) g/dL Albumin 4.6 (3.5-5.0) g/dL Disposition Clinical Impression: Recurrent seizures Disposition: ADMITTED IP TO THIS [facility] Condition: Stable Referrals: Marycarmen Gaston MD [Primary Care Provider] - 1-2 days
[2022-02-24] MEDS ORDERED: levETIRAcetam IV 1,000 MG in SALINE 1 100ML.BAG IVPB SCH (10:00)
== END 2022-02-24 03:00 | disposition left against medical advice (07) ==
LOC: EC 22:23 → 6NMEDSUR 02-24 00:23
PROVIDERS: ADMIT Hospitalist; ATTEND Hospitalist
DX: G40.909 Epilepsy, unspecified, not intractable, without status epilepticus (principal); J45.909 Unspecified asthma, uncomplicated; G43.909 Migraine, unspecified, not intractable, without status migrainosus; K76.9 Liver disease, unspecified; F17.200 Nicotine dependence, unspecified, uncomplicated; F43.10 Post-traumatic stress disorder, unspecified; F25.9 Schizoaffective disorder, unspecified; F31.9 Bipolar disorder, unspecified; Z79.51 Long term (current) use of inhaled steroids; Z79.899 Other long term (current) drug therapy; Z88.1 Allergy status to other antibiotic agents; Z88.2 Allergy status to sulfonamides; Z88.8 Allergy status to other drugs, medicaments and biological substances; Z86.14 Personal history of Methicillin resistant Staphylococcus aureus infection; Z53.29 Procedure and treatment not carried out because of patient's decision for other reasons; Z98.890 Other specified postprocedural states
CPT/HCPCS: 96360; 96372; 99285; 36415; 80053; 85025; G0378; J2060; J1953

== ENCOUNTER 2022-02-24 03:02 | Inpatient (IN) | payer OTHER ==
--- NOTE | 2022-02-24 04:25 | ED ---
Recheck HPI - General Chief Complaint: Seizure Stated Complaint: Seizures Time Seen by Provider: 02/24/22 03:33 Source: patient Mode of arrival: ambulatory Limitations: no limitations - Related Data Home Medications Medication Instructions Recorded Confirmed Loratadine [Claritin] 10 mg PO DAILY 01/28/18 07/25/20 Montelukast [Singulair] 10 mg PO DAILY 01/28/18 07/25/20 ARIPiprazole [Abilify] 10 mg PO DAILY 04/28/20 07/25/20 Albuterol Nebulized [Ventolin 2.5 mg INHALATION RT-Q6H PRN 07/25/20 07/25/20 Nebulized] Albuterol Sulfate [Proair Hfa] 2 puff INHALATION RT-QID PRN 07/25/20 07/25/20 Cholecalciferol (Vitamin D3) 125 mcg PO DAILY 07/25/20 07/25/20 [Vitamin D3 (5000 Iu)] Fluticasone Propion/Salmeterol 2 puff INHALATION RT-BID 07/25/20 07/25/20 [Advair Hfa 230-21 Mcg Inhaler] Meclizine HCl 25 mg PO TID PRN 07/25/20 07/25/20 Naproxen [Naprosyn] 500 mg PO Q12HR PRN 07/25/20 07/25/20 Simethicone Chew [Mylicon Chew] 80 mg PO BID PRN 07/25/20 07/25/20 Previous Rx's Medication Instructions Recorded Cephalexin [Keflex] 500 mg PO Q6HR 7 Days #28 cap 07/25/20 Allergies Allergy/AdvReac Type Severity Reaction Status Date / Time diphenhydramine Allergy Confusion Verified 08/12/21 21:34 [From Benadryl] Sulfa (Sulfonamide Allergy Swelling Verified 08/12/21 21:34 Antibiotics) sulfamethoxazole Allergy Swelling Verified 08/12/21 21:34 [From Bactrim] trimethoprim [From Bactrim] Allergy Swelling Verified 08/12/21 21:34 Review of Systems ROS Statement: Those systems with pertinent positive or pertinent negative responses have been documented in the HPI. ROS Other: All systems not noted in ROS Statement are negative. Past Medical History Past Medical History: Asthma, Liver Disease, Seizure Disorder Additional Past Medical History / Comment(s): PTSD, chronic migraines, HX SEIZURES-LAST ONE 11/2019-NOT ON ANY MEDS FOR THEM (PT STATES SEIZURES ARE STRESS INDUCED History of Any Multi-Drug Resistant Organisms: MRSA Date of last positivie culture/infection: 2005 MDRO Source:: leg Past Surgical History: No Surgical Hx Reported Additional Past Surgical History / Comment(s): forehead reconstruction for head lac as child, hernie repair, Past Anesthesia/Blood Transfusion Reactions: No Reported Reaction Past Psychological History: Bipolar, Depression, PTSD, Schizoaffective Disorder Smoking Status: Current every day smoker Past Alcohol Use History: Occasional Past Drug Use History: Marijuana - Past Family History Father Family Medical History: Cancer Additional Family Medical History / Comment(s): ADOPTED-NOT TOTALLY SURE OF HHX Mother Family Medical History: Cancer Additional Family Medical History / Comment(s): ADOPTED-NOT TOTALLY SURE OF HHX General Exam Limitations: no limitations Course Vital Signs 02/24/22 02/24/22 02/24/22 03:10 03:24 04:23 Temperature 98.7 F 98.4 F Pulse Rate 84 80 Respiratory 18 16 16 Rate Blood Pressure 117/79 123/85 O2 Sat by Pulse 98 98 Oximetry Disposition Clinical Impression: Recurrent seizures Disposition: HOME SELF-CARE Condition: Fair Instructions (If sedation given, give patient instructions): Recurrent Seizures in Adults (ED) Is patient prescribed a controlled substance at d/c from ED?: No Referrals: Marycarmen Gaston MD [Primary Care Provider] - 1-2 days Time of Disposition: 05:00
[2022-02-24] MEDS ORDERED: levETIRAcetam IV 1,000 MG in SALINE 1 100ML.BAG IVPB STA (04:46)
[2022-02-24] MEDS: levETIRAcetam IV 1,000 MG in SALINE 1 100ML.BAG IVPB SCH ×2 (09:35→20:24)
--- NOTE | 2022-02-24 09:51 | P.CNNES ---
History of Present Illness Consult date: 02/24/22 Requesting physician: Gabriel Crump Reason for Consult: seizure History of Present Illness: This is a 32-year-old gentleman with history of seizure who presented to our facility for breakthrough seizure. According to the patient he had 3 seizures while shopping at [employer] that he was notified and then 2 seizure in our ED. patient does not recall the episodes. He says that he is on Keppra 750 mg every 12 hours and he is been compliant taking the medication. He denies any recent fever, stress. Denies any recent alcohol. He follows up with Dr. Dukes's PA and had MRI and EEG and was told normal (last imaging according to him was a few month ago). He stated that he was on Keppra 500 mg every 12 hours and was increased to 750 and at that happened within the last couple months that increased and has decreased the frequency of the seizures. He was on Lamictal at lunchtime and that causes a rash. Of note is seems that the patient initially presented on 02/23/2022 because of his seizures and per the notes mention that he is not on any antiepileptic medication but according to him and he notified me that he is on antiepileptic medication. In the according to the notes his stated that he had for seizure prior to the arrival in the last seizure was a few month ago. Regarding his seizures prior to the seizure he might get dizziness and he'll start shaking throughout all the body was consciousness and sometimes he'll have a tongue bite and had weakness over the right side. There is a family history of seizures. Some of the workup during this hospital visit consisted of: Afebrile. CBC with differential is unremarkable Chemistry panel is that the glucose is 152, ALT 63 Review of Systems Review of system: The 12 point system was reviewed and apparent positive and negative per HPI. Past Medical History Past Medical History: Asthma, Liver Disease, Seizure Disorder Additional Past Medical History / Comment(s): PTSD, chronic migraines, HX SEIZURES-LAST ONE 11/2019-NOT ON ANY MEDS FOR THEM (PT STATES SEIZURES ARE STRESS INDUCED; liver CA History of Any Multi-Drug Resistant Organisms: MRSA Date of last positivie culture/infection: 2005 MDRO Source:: leg Past Surgical History: Hernia Repair Additional Past Surgical History / Comment(s): forehead reconstruction for head lac as child Past Anesthesia/Blood Transfusion Reactions: No Reported Reaction Past Psychological History: ADD/ADHD, Bipolar, Depression, PTSD, Schizoaffective Disorder Smoking Status: Former smoker Past Alcohol Use History: Occasional Additional Past Alcohol Use History / Comment(s): QUIT SMOKING/DRINKING 02/2020 Past Drug Use History: Marijuana Additional Drug Use History / Comment(s): USES CBC FOR PAIN DOES NOT HAVE THS IN IT - Past Family History Father Family Medical History: Cancer Additional Family Medical History / Comment(s): ADOPTED-NOT TOTALLY SURE OF HHX Mother Family Medical History: Cancer Additional Family Medical History / Comment(s): ADOPTED-NOT TOTALLY SURE OF HHX Medications and Allergies Home Medications Medication Instructions Recorded Confirmed Type Loratadine [Claritin] 10 mg PO DAILY 01/28/18 02/24/22 History Montelukast [Singulair] 10 mg PO DAILY 01/28/18 02/24/22 History ARIPiprazole [Abilify] 10 mg PO DAILY 04/28/20 02/24/22 History Albuterol Nebulized [Ventolin 2.5 mg INHALATION RT-Q6H PRN 07/25/20 02/24/22 History Nebulized] Albuterol Sulfate [Proair Hfa] 2 puff INHALATION RT-QID PRN 07/25/20 02/24/22 History Cholecalciferol (Vitamin D3) 125 mcg PO DAILY 07/25/20 02/24/22 History [Vitamin D3 (5000 Iu)] Fluticasone Propion/Salmeterol 2 puff INHALATION RT-BID 07/25/20 02/24/22 History [Advair Hfa 230-21 Mcg Inhaler] Meclizine HCl 25 mg PO TID PRN 07/25/20 02/24/22 History Naproxen [Naprosyn] 500 mg PO Q12HR PRN 07/25/20 02/24/22 History Simethicone Chew [Mylicon Chew] 80 mg PO BID PRN 07/25/20 02/24/22 History Allergies Allergy/AdvReac Type Severity Reaction Status Date / Time diphenhydramine Allergy Confusion Verified 08/12/21 21:34 [From Benadryl] Sulfa (Sulfonamide Allergy Swelling Verified 08/12/21 21:34 Antibiotics) sulfamethoxazole Allergy Swelling Verified 08/12/21 21:34 [From Bactrim] trimethoprim [From Bactrim] Allergy Swelling Verified 08/12/21 21:34 Physical Examination - Vital Signs Vital Signs: Vital Signs Temp Pulse Pulse Resp BP BP Pulse Ox 02/24/22 05:54 97.7 F 81 18 119/76 95 02/24/22 05:26 98.6 F 79 16 122/80 99 02/24/22 04:23 16 02/24/22 03:24 98.4 F 80 16 123/85 98 02/24/22 03:10 98.7 F 84 18 117/79 98 Intake and Output 02/23/22 02/24/22 02/24/22 22:59 06:59 14:59 Other: Weight 142.428 kg GENERAL: The patient is lying in bed and is not in acute distress. CHEST: The heart rate is regular rate rhythm. No murmurs to auscultation. LUNG: Clear to auscultation bilaterally no wheezing noted throughout. Not labored breathing. ABDOMEN/GI: Bowel sounds present in all 4 quadrants. No tenderness to palpation throughout. NEUROLOGICAL: Higher mental function: The patient is awake, alert, oriented to self, place and time. Patient is following commands. No aphasia and no neglect. Cranial nerves: The pupils are round, equal and reactive to light and accommodation. Visual [place] are full to confrontation throughout. Extraocular movement is intact no nystagmus is noted. Facial sensation is normal to touch throughout. The facial strength is normal throughout. Hearing is normal bilaterally to hand rub. Tongue is midline and moved [id number] without any difficulty. No dysarthria is noted. Shoulder shrug is normal bilaterally. Motor: The strength is has weakness over the right side but with movitation it improves and as equal to the left side. Left side is 5/5. Normal tone and bulk. Cerebellum: Normal finger to nose bilaterally. Sensation: Sensation is normal to touch throughout. Reflexes (right/left): 2+ throughout. Plantars are downgoing bilaterally. Assessment and Plan Assessment: Break-through seizure (according to patient had total of 5 seizures). Labs are not drastically remarkable for reactive for multiple seizure. Also he stated he is compliant taking Keppra but according to ED note not taking medication. History of seizure Ex-tobacco use Plan: Ordered CT head. Is currently on Keppra 1gm bid started by ED team (according to him was on 750mg bid). WAs given bolus in ED 1gm. Will try from patient significant other regarding if he was truly taking his medication. He stated he had EEG and MRI by his neurologist and last MRI was couple months ago (was told normal). If he is stable by tomorrow no EEG is need as inpatient and can consider as outpatient and possibly rn long term care EEG/Epilepsy monitoring unit to capture episodes. Placed on seizure precaution and pad. Q4 hour neuro checks. Will defer the rest of medical management to the primary team. Because of his seizure [place], patient is to avoid driving for 6 months until seizure free, avoid height, swim unassisted or use heavy machinery. Recommend patient to follow-up with his neurologist (Dr. Dukes's team) as outpatient within 1-2 weeks. The plan is discussed with patient and his nurse. Thank you for the consultation. Time with Patient: Greater than 30
[2022-02-24] MEDS ORDERED: ALBUTEROL NEBULIZED 2.5 MG/3 ML INHALATION PRN (10:39)
--- NOTE | 2022-02-24 10:41 | CT ---
EXAMINATION TYPE: CT brain wo con CT DLP: 1100.9 mGycm, Automated exposure control for dose reduction was used. DATE OF EXAM: 02/24/2022 10:26 AM COMPARISON: 07/14/2020 CLINICAL INDICATION:Male, 32 years old with history of seizure, TECHNIQUE: Brain: Axial CT images of the brain were obtained with coronal and sagittal reformats created and rev iewed. Contrast used: None. Oral contrast used: None. FINDINGS: Brain: Extra-axial spaces: No abnormal extra-axial fluid collections. Ventricular system: Within normal limits Cerebral parenchyma: No acute intraparenchymal hemorrhage or mass effect. The benjamin-white junction is well differentiated. Cerebellum: Unremarkable. Mass effect: No evidence of midline shift. Intracranial vasculature: unremarkable Soft tissues: Normal. Calvarium/osseous structures: No depressed skull fracture. Paranasal sinuses and mastoid air cells: Mild scattered paranasal sinus disease. Visualized orbits: Orbital contents are intact. IMPRESSION: No acute intracranial process.
--- NOTE | 2022-02-24 11:36 | P.HPIM ---
History of Present Illness 32-year-old the female came in with complaints of breakthrough seizures while she was shopping at [employer] patient did doesn't recall the episode. As per the patient patient the does take his 500 mg twice a day of Regular Basis Which Was Increased to 70 Mg Twice a Day Patient Follows with Neurologist As an Outpatient and Had an MRI and EEG Scheduled. Patient Was Evaluated in Neurology Here Patient Doesn't Have Any Seizure Episodes since His Hospitalization No Labs Are Available at This Time. Keppra Dose Was Increased 2000 Every 12 Hourly and Neurology Recommended Monitoring One More Night and Keppra Levels Possibility of Discharge Tomorrow If He Remains Stable. REVIEW OF SYSTEMS: CONSTITUTIONAL: No fever, no malaise, no fatigue. HEENT: No recent visual problems or hearing problems. Denied any sore throat. CARDIOVASCULAR: No chest pain, orthopnea, PND, no palpitations, no syncope. PULMONARY: No shortness of breath, no cough, no hemoptysis. GASTROINTESTINAL: No diarrhea, no nausea, no vomiting, no abdominal pain. NEUROLOGICAL: As mentioned in HPI HEMATOLOGICAL: Denies any bleeding or petechiae. GENITOURINARY: Denies any burning micturition, frequency, or urgency. MUSCULOSKELETAL/RHEUMATOLOGICAL: Denies any joint pain, swelling, or any muscle pain. ENDOCRINE: Denies any polyuria or polydipsia. The rest of the 14-point review of systems is negative. PHYSICAL EXAMINATION: GENERAL: The patient is alert and oriented x3, not in any acute distress. Well developed, well nourished. HEENT: Pupils are round and equally reacting to light. EOMI. No scleral icterus. No conjunctival pallor. Normocephalic, atraumatic. No pharyngeal erythema. No thyromegaly. CARDIOVASCULAR: S1 and S2 present. No murmurs, rubs, or gallops. PULMONARY: Chest is clear to auscultation, no wheezing or crackles. ABDOMEN: Soft, nontender, nondistended, normoactive bowel sounds. No palpable organomegaly. MUSCULOSKELETAL: No joint swelling or deformity. EXTREMITIES: No cyanosis, clubbing, or pedal edema. NEUROLOGICAL: Gross neurological examination did not reveal any focal deficits. SKIN: No rashes. Assessment and plan -Breakthrough seizures: Keppra dose was increased to thousand twice a day possibility of discharge tomorrow monitor today and Keppra levels -Asthma without any acute exacerbation, possibly of COPD patient used to smoke -Obesity -Schizoaffective disorder DVT prophylaxis: Past Medical History Past Medical History: Asthma, Liver Disease, Seizure Disorder Additional Past Medical History / Comment(s): PTSD, chronic migraines, HX SEIZURES-LAST ONE 11/2019-NOT ON ANY MEDS FOR THEM (PT STATES SEIZURES ARE STRESS INDUCED; liver CA History of Any Multi-Drug Resistant Organisms: MRSA Date of last positivie culture/infection: 2005 MDRO Source:: leg Past Surgical History: Hernia Repair Additional Past Surgical History / Comment(s): forehead reconstruction for head lac as child Past Anesthesia/Blood Transfusion Reactions: No Reported Reaction Past Psychological History: ADD/ADHD, Bipolar, Depression, PTSD, Schizoaffective Disorder Smoking Status: Former smoker Past Alcohol Use History: Occasional Additional Past Alcohol Use History / Comment(s): QUIT SMOKING/DRINKING 02/2020 Past Drug Use History: Marijuana Additional Drug Use History / Comment(s): USES CBC FOR PAIN DOES NOT HAVE THS IN IT - Past Family History Father Family Medical History: Cancer Additional Family Medical History / Comment(s): ADOPTED-NOT TOTALLY SURE OF HHX Mother Family Medical History: Cancer Additional Family Medical History / Comment(s): ADOPTED-NOT TOTALLY SURE OF HHX Medications and Allergies Home Medications Medication Instructions Recorded Confirmed Type Loratadine [Claritin] 10 mg PO DAILY 01/28/18 02/24/22 History Montelukast [Singulair] 10 mg PO DAILY 01/28/18 02/24/22 History ARIPiprazole [Abilify] 10 mg PO DAILY 04/28/20 02/24/22 History Albuterol Nebulized [Ventolin 2.5 mg INHALATION RT-Q6H PRN 07/25/20 02/24/22 History Nebulized] Albuterol Sulfate [Proair Hfa] 2 puff INHALATION RT-QID PRN 07/25/20 02/24/22 History Cholecalciferol (Vitamin D3) 125 mcg PO DAILY 07/25/20 02/24/22 History [Vitamin D3 (5000 Iu)] Fluticasone Propion/Salmeterol 2 puff INHALATION RT-BID 07/25/20 02/24/22 History [Advair Hfa 230-21 Mcg Inhaler] Meclizine HCl 25 mg PO TID PRN 07/25/20 02/24/22 History Naproxen [Naprosyn] 500 mg PO Q12HR PRN 07/25/20 02/24/22 History Simethicone Chew [Mylicon Chew] 80 mg PO BID PRN 07/25/20 02/24/22 History Allergies Allergy/AdvReac Type Severity Reaction Status Date / Time diphenhydramine Allergy Confusion Verified 02/24/22 11:34 [From Benadryl] Sulfa (Sulfonamide Allergy Swelling Verified 02/24/22 11:34 Antibiotics) sulfamethoxazole Allergy Swelling Verified 02/24/22 11:34 [From Bactrim] trimethoprim [From Bactrim] Allergy Swelling Verified 02/24/22 11:34 Physical Exam Vitals: Vital Signs Temp Pulse Pulse Resp BP BP Pulse Ox 02/24/22 08:15 81 02/24/22 05:54 97.7 F 81 18 119/76 95 02/24/22 05:26 98.6 F 79 16 122/80 99 02/24/22 04:23 16 02/24/22 03:24 98.4 F 80 16 123/85 98 02/24/22 03:10 98.7 F 84 18 117/79 98 Intake and Output 02/23/22 02/24/22 02/24/22 22:59 06:59 14:59 Other: Weight 142.428 kg Thrombosis Risk Factor Assmnt - Choose All That Apply Any of the Below Risk Factors Present?: No Other Risk Factors: No Other congenital or acquired thrombophilia - If yes, enter type in comment: No Thrombosis Risk Factor Assessment Level: Very Low Risk
[2022-02-24] MEDS: SYMBICORT 160-4.5 MCG INHALER INHALATION SCH (20:11)
[2022-02-25 05:17] VITALS: RESP 18
[2022-02-25] MEDS: SYMBICORT 160-4.5 MCG INHALER INHALATION SCH (07:21)
[2022-02-25] MEDS ORDERED: ARIPiprazole 10 MG TAB PO SCH (09:00)
[2022-02-25] MEDS ORDERED: MONTELUKAST 10 MG TAB PO SCH (09:00)
[2022-02-25] MEDS ORDERED: levETIRAcetam 500 MG TAB PO SCH (09:00)
[2022-02-25] MEDS ORDERED: LORATADINE 10 MG TAB PO SCH (09:00)
--- NOTE | 2022-02-25 11:24 | P.PN ---
Subjective Progress Note Date: 02/25/22 The patient is seen at bedside and according to the nurse no further seizures overnight or today or even yesterday A.M. shift. Patient is feel he is doing better. Objective - Vital Signs Vital signs: Vital Signs Temp 97.8 F 02/25/22 05:16 Pulse 78 02/25/22 05:16 Resp 18 02/25/22 05:16 BP 105/66 02/25/22 05:16 Pulse Ox 95 02/25/22 05:16 FiO2 Intake & Output 02/24/22 02/25/22 02/25/22 18:59 06:59 18:59 Intake Total 400 700 Balance 400 700 Intake: Intake, IV Titration 400 100 Amount levETIRAcetam IV 1,000 mg 400 100 In Saline 1 100ml.bag @ 400 mls/hr IVPB Q12HR [facility] Rx#:[id number] Oral 600 Other: Voiding Method Toilet Toilet Urinal # Voids 3 # Bowel Movements 1 - Exam GENERAL: The patient is lying in bed and is not in acute distress. NEUROLOGICAL: Higher mental function: The patient is awake, alert, oriented to self, place and time. Patient is following commands. No aphasia and no neglect. Cranial nerves: The pupils are round, equal and reactive to light and accommodation. Visual [place] are full to confrontation throughout. Extraocular movement is intact no nystagmus is noted. Facial sensation is normal to touch throughout. The facial strength is normal throughout. Hearing is normal bilaterally to hand rub. Tongue is midline and moved [id number] without any difficulty. No dysarthria is noted. Shoulder shrug is normal bilaterally. Motor: The strength is has weakness over the right side but with movitation it improves and as equal to the left side. Left side is 5/5. Normal tone and bulk. Cerebellum: Normal finger to nose bilaterally. Sensation: Sensation is normal to touch throughout. Reflexes (right/left): 2+ throughout. Plantars are downgoing bilaterally. Some of the workup during this hospital visit consisted of: Afebrile. CBC with differential is unremarkable Chemistry panel is that the glucose is 152, ALT 63 CT head it is reported as no acute intracranial process. Assessment and Plan Assessment: Break-through seizure (according to patient had total of 5 seizures). Labs are not drastically remarkable for reactive for multiple seizure. Also he stated he is compliant taking Keppra but according to ED note not taking medication---stable History of seizure Ex-tobacco use Plan: Continue Keppra 1gm bid (was on 750mg bid). He stated he had EEG and MRI by his neurologist and last MRI was couple months ago (was told normal). Recommend outpatient terminal supervisor EEG/Epilepsy monitoring unit to capture episodes. Placed on seizure precaution and pad. Q4 hour neuro checks. Will defer the rest of medical management to the primary team. Because of his seizure Per [place] DMV, patient is to avoid driving for 6 months until seizure free, avoid height, swim unassisted or use heavy machinery. Recommend patient to follow-up with his neurologist (Dr. Dukes's team) as outpatient within 1-2 weeks. The plan is discussed with patient and his nurse. Patient is clear for discharge from neurological perspective (since no seizure for at least 24 hours). Time with Patient: Less than 30
[2022-02-25 11:48] VITALS: BP 111/74; PULSE 77; TEMP 98.2
--- NOTE | 2022-02-26 17:28 | P.DS ---
Providers Date of admission: 02/24/22 04:46 Attending physician: Pedro Kathleen Consults: 02/24/22 04:46 Consult Physician Routine Consulting Provider: Yodit Hillman Consult Reason/Comments: seizure Do you want consulting provider notified?: Yes Primary care physician: Marycarmen Gaston Hospital Course: Final diagnosis Breakthrough seizures patient has been increasing Keppra to 1000 mg twice a day and has had no evidence of seizure activity this hospital stay. Asthma without acute exacerbation there is a possibility of COPD patient used to smoke Obesity Schizoaffective disorder Full Code Discharge Disposition Patient is stable for discharge home. He has had no evidence for seizure activity this hospital stay and is recommended to follow up with his neurologist on discharge. He follows at Dr Toure office. He has been discharged on increase dose of keppra, 1000 mg twice a day. Cleared by neurology. Hospital Course 32-year-old the female came in with complaints of breakthrough seizures while he was shopping in [place], patient states that he doesn't remember the episode. Patient does take his Keppra 500 mg twice a day on a regular basis and was recently increased to 750 mg twice a day. He does follow at Dr Toure office recently had an outpatient MRI and EEG scheduled. He had brain CT performed this hospitalization negative for acute intracranial process. Patient was evaluated by neurology this hospital stay and has not had any episodes of seizure activity does Was increased to 1000 mg twice a day. He has a monitor overnight and was cleared for discharge. He is recommended to see his neurologist and also with primary care and discharge. 02/25/2022 Patient is evaluated today at medical floor, he is noted to events overnight. Denies chest pain, denies shortness of breath. She denies nausea vomiting diarrhea. Denies any seizure activity and none has been reported by nursing staff. He is on increased dose of Keppra 1000 mg twice a day. Lungs are clear, S1 S2 auscultated focal neurological exam is negative. Currently afebrile, heart rate 77, blood pressure 111/74, 95% room air. Cleared for discharge. Please see medication reconciliation for a list of current medication. Thank you for allowing us to participate in the care of this patient. The impression and plan of care has been dictated by Julieta Gomez, Nurse Practitioner as directed. Dr. Lamar MD I have performed a history and physical examination and medical decision making of this patient, discussed the same with the dictator, and agree with the dictators assessment and plan as written, documented as a scribe. Based on total visit time, I have performed more than 50% of this visit. Patient Condition at Discharge: Fair Plan - Discharge Summary Discharge Rx Participant: No New Discharge Prescriptions: New levETIRAcetam [Keppra] 1,000 mg PO Q12HR #60 tab Continue Montelukast [Singulair] 10 mg PO DAILY Loratadine [Claritin] 10 mg PO DAILY ARIPiprazole [Abilify] 10 mg PO DAILY Fluticasone Propion/Salmeterol [Advair Hfa 230-21 Mcg Inhaler] 2 puff INHALATION RT-BID Naproxen [Naprosyn] 500 mg PO Q12HR PRN PRN Reason: Pain Albuterol Sulfate [Proair Hfa] 2 puff INHALATION RT-QID PRN PRN Reason: Shortness Of Breath Albuterol Nebulized [Ventolin Nebulized] 2.5 mg INHALATION RT-Q6H PRN PRN Reason: Shortness Of Breath Simethicone Chew [Mylicon Chew] 80 mg PO ACHS PRN PRN Reason: Gi Upset Meclizine HCl 25 mg PO TID PRN PRN Reason: Vertigo Cholecalciferol (Vitamin D3) [Vitamin D3 (5000 Iu)] 125 mcg PO DAILY Valtoco 10 Mg/[place] 1 spray NASAL ONCE PRN PRN Reason: Seizures Discontinued levETIRAcetam [Keppra] 750 mg PO Q12HR Discharge Medication List Loratadine [Claritin] 10 mg PO DAILY 01/28/18 [History] Montelukast [Singulair] 10 mg PO DAILY 01/28/18 [History] ARIPiprazole [Abilify] 10 mg PO DAILY 04/28/20 [History] Albuterol Nebulized [Ventolin Nebulized] 2.5 mg INHALATION RT-Q6H PRN 07/25/20 [History] Albuterol Sulfate [Proair Hfa] 2 puff INHALATION RT-QID PRN 07/25/20 [History] Cholecalciferol (Vitamin D3) [Vitamin D3 (5000 Iu)] 125 mcg PO DAILY 07/25/20 [History] Fluticasone Propion/Salmeterol [Advair Hfa 230-21 Mcg Inhaler] 2 puff INHALATION RT-BID 07/25/20 [History] Meclizine HCl 25 mg PO TID PRN 07/25/20 [History] Naproxen [Naprosyn] 500 mg PO Q12HR PRN 07/25/20 [History] Simethicone Chew [Mylicon Chew] 80 mg PO ACHS PRN 07/25/20 [History] Valtoco 10 Mg/[place] 1 spray NASAL ONCE PRN 02/24/22 [History] levETIRAcetam [Keppra] 1,000 mg PO Q12HR #60 tab 02/25/22 [Rx] Follow up Appointment(s)/Referral(s): Marycarmen Gaston MD [Primary Care Provider] - 1-2 days (Patient to make own appt. Office closed at time of discharge. ) Kim Dukes MD [Medical Doctor] - 1 Week (Patient to make own appt. Office closed at time of discharge. ) Patient Instructions/Handouts: Levetiracetam (By mouth), Recurrent Seizures in Adults (ED) Activity/Diet/Wound Care/Special Instructions: Discharged on increased dose of keppra 1000 mg twice a day Educated on [place] law no driving or operating heavy machinery for 6 months a fter seizure activity. Recommended to see PCP in 1 to 2 days Patient follows at Dr Toure office and he will make follow up appointment. Discharge Disposition: HOME SELF-CARE
== END 2022-02-25 14:41 | disposition home or self-care (01) | DRG 101 ==
LOC: EC 03:02 → 5NMEDONC 04:46
PROVIDERS: ADMIT Hospitalist; ATTEND Hospitalist
DX: G40.909 Epilepsy, unspecified, not intractable, without status epilepticus (principal); Z68.41 Body mass index [BMI] 40.0-44.9, adult; J45.909 Unspecified asthma, uncomplicated; F90.9 Attention-deficit hyperactivity disorder, unspecified type; E66.9 Obesity, unspecified; F17.210 Nicotine dependence, cigarettes, uncomplicated; F25.9 Schizoaffective disorder, unspecified; F43.10 Post-traumatic stress disorder, unspecified; Z79.899 Other long term (current) drug therapy; Z82.0 Family history of epilepsy and other diseases of the nervous system; Z28.310 Unvaccinated for COVID-19; Z86.14 Personal history of Methicillin resistant Staphylococcus aureus infection; Z88.2 Allergy status to sulfonamides; Z88.8 Allergy status to other drugs, medicaments and biological substances
CPT/HCPCS: 70450; 93005; 94640

== ENCOUNTER 2022-03-08 00:33 | Emergency (ER) | payer OTHER ==
[2022-03-08] MEDS ORDERED: SODIUM CHLORIDE 0.9% 1,000 ML IV STA (01:44)
--- NOTE | 2022-03-08 03:43 | CT ---
EXAMINATION TYPE: CT abdomen pelvis w con DATE OF EXAM: 03/08/2022 COMPARISON: 07/25/2020 HISTORY: ABD PAIN, H/O UMBILICAL HERNIA CT DLP: 2903.4 mGycm Automated exposure control for dose reduction was used. CONTRAST: Performed with IV Contrast, patient injected with 100 mL of Isovue 300. Images obtained from the diaphragm to the floor of the pelvis with the IV contrast. Lung bases show mild subsegmental atelectasis. No pleural effusion. Heart is top normal in size. Ther e is fatty infiltration of the liver. Spleen is intact. No pancreatic mass. Stomach is intact. There is no adrenal mass. Kidneys show satisfactory contrast opacification. No hydronephrosis. Ureter s are not dilated. Delayed images show normal renal excretion. No retroperitoneal adenopathy. Appendi x is normal. The bladder distends smoothly. No inguinal hernia. No free fluid in the pelvis. No pelvic mass. There is no mesenteric edema. No ascites or free air. No sign of a bowel obstruction. The lumbar vert ebrae have normal alignment. Posterior elements are intact. No compression fracture. Disc spaces are fairly normal. The bony pelvis is intact. The hip joints are intact. IMPRESSION: Negative CT scan of the abdomen and pelvis. Fatty infiltration of the liver. No adverse change compar ed to old exam.
--- NOTE | 2022-03-08 04:36 | ED ---
Abdominal Pain HPI - General Source: patient Mode of arrival: ambulatory Limitations: no limitations <Tatianna Muhammad - Last Filed: 03/08/22 04:34> <Vito Pop - Last Filed: 03/08/22 06:58> - General Chief Complaint: Abdominal Pain Stated Complaint: Hernia Time Seen by Provider: 03/08/22 01:35 - History of Present Illness Initial Comments: Patient is a 32-year-old male presenting with chief complaint of abdominal pain. Patient states pain is located primarily in the left lower quadrant and started today. Patient has history of hernia repair to that area. No nausea or vomiting. No diarrhea, hematochezia, melena. No dysuria, hematuria, urgency, frequency. No fever or chills. No chest pain or difficulty breathing. No alleviating or aggravating factors (Tatianna Muhammad) - Related Data Home Medications Medication Instructions Recorded Confirmed Loratadine [Claritin] 10 mg PO DAILY 01/28/18 02/24/22 Montelukast [Singulair] 10 mg PO DAILY 01/28/18 02/24/22 ARIPiprazole [Abilify] 10 mg PO DAILY 04/28/20 02/24/22 Albuterol Nebulized [Ventolin 2.5 mg INHALATION RT-Q6H PRN 07/25/20 02/24/22 Nebulized] Albuterol Sulfate [Proair Hfa] 2 puff INHALATION RT-QID PRN 07/25/20 02/24/22 Cholecalciferol (Vitamin D3) 125 mcg PO DAILY 07/25/20 02/24/22 [Vitamin D3 (5000 Iu)] Fluticasone Propion/Salmeterol 2 puff INHALATION RT-BID 07/25/20 02/24/22 [Advair Hfa 230-21 Mcg Inhaler] Meclizine HCl 25 mg PO TID PRN 07/25/20 02/24/22 Naproxen [Naprosyn] 500 mg PO Q12HR PRN 07/25/20 02/24/22 Simethicone Chew [Mylicon Chew] 80 mg PO ACHS PRN 07/25/20 02/24/22 Valtoco 10 Mg/[place] 1 spray NASAL ONCE PRN 02/24/22 02/24/22 Previous Rx's Medication Instructions Recorded levETIRAcetam [Keppra] 1,000 mg PO Q12HR #60 tab 02/25/22 Allergies Allergy/AdvReac Type Severity Reaction Status Date / Time diphenhydramine Allergy Confusion Verified 03/08/22 01:18 [From Benadryl] Sulfa (Sulfonamide Allergy Swelling Verified 03/08/22 01:18 Antibiotics) sulfamethoxazole Allergy Swelling Verified 03/08/22 01:18 [From Bactrim] trimethoprim [From Bactrim] Allergy Swelling Verified 03/08/22 01:18 Review of Systems ROS Other: All systems not noted in ROS Statement are negative. <Tatianna Muhammad - Last Filed: 03/08/22 04:34> ROS Other: All systems not noted in ROS Statement are negative. <Vito Pop - Last Filed: 03/08/22 06:58> ROS Statement: Those systems with pertinent positive or pertinent negative responses have been documented in the HPI. Past Medical History Past Medical History: Asthma, Liver Disease, Seizure Disorder Additional Past Medical History / Comment(s): PTSD, chronic migraines, HX SEIZURES-LAST ONE 11/2019-NOT ON ANY MEDS FOR THEM (PT STATES SEIZURES ARE STRESS INDUCED History of Any Multi-Drug Resistant Organisms: MRSA Date of last positivie culture/infection: 2005 MDRO Source:: leg Past Surgical History: No Surgical Hx Reported Additional Past Surgical History / Comment(s): forehead reconstruction for head lac as child, hernie repair, Past Anesthesia/Blood Transfusion Reactions: No Reported Reaction Past Psychological History: Bipolar, Depression, PTSD, Schizoaffective Disorder Smoking Status: Current every day smoker Past Alcohol Use History: Occasional Past Drug Use History: Marijuana - Past Family History Father Family Medical History: Cancer Additional Family Medical History / Comment(s): ADOPTED-NOT TOTALLY SURE OF HHX Mother Family Medical History: Cancer Additional Family Medical History / Comment(s): ADOPTED-NOT TOTALLY SURE OF HHX <Tatianna Muhammad - Last Filed: 03/08/22 04:34> General Exam Limitations: no limitations General appearance: alert, in no apparent distress Head exam: Present: atraumatic, normocephalic, normal inspection Eye exam: Present: normal appearance Neck exam: Present: normal inspection Respiratory exam: Present: normal lung sounds bilaterally. Absent: respiratory distress, wheezes, rales, rhonchi, stridor Cardiovascular Exam: Present: regular rate, normal rhythm, normal heart sounds. Absent: systolic murmur, diastolic murmur, rubs, gallop, clicks GI/Abdominal exam: Present: soft, tenderness (Left lower quadrant). Absent: distended, guarding, rebound, rigid Neurological exam: Present: alert, oriented X3, CN II-XII intact Psychiatric exam: Present: normal affect, normal mood Skin exam: Present: warm, dry, intact, normal color. Absent: rash <Tatianna Muhammad - Last Filed: 03/08/22 04:34> Course Vital Signs 03/08/22 03/08/22 01:19 04:59 Temperature 98.2 F Pulse Rate 78 67 Respiratory 15 16 Rate Blood Pressure 147/68 138/72 O2 Sat by Pulse 100 100 Oximetry Medical Decision Making <Tatianna Muhammad - Last Filed: 03/08/22 04:34> - Lab Data Result diagrams: 03/08/22 05:17 03/08/22 05:05 <Vito Pop - Last Filed: 03/08/22 06:58> - Medical Decision Making Patient is a 32-year-old male presenting with chief complaint of left lower quadrant pain. Patient has history of hernia repair to the area. On physical examination there is tenderness to the left lower quadrant on palpation. CT of the abdomen shows no acute process. Lab work is still pending. (Tatianna Muhammad) I assumed care of the patient from the MO. All laboratory workup was within normal limits and negative. On reevaluation, the patient was stable and was deemed stable for discharge back home. The patient was advised to follow-up with his primary care physician for further workup and evaluation. The patient was discharged in stable condition. (Vito Pop) - Lab Data Lab Results 03/08/22 03/08/22 03/08/22 Range/Units 05:00 05:05 05:17 WBC 6.1 (3.8-10.6) k/uL RBC 5.19 (4.30-5.90) m/uL Hgb 14.9 (13.0-17.5) gm/dL Hct 44.4 (39.0-53.0) % MCV 85.6 (80.0-100.0) fL MCH 28.7 (25.0-35.0) pg MCHC 33.6 (31.0-37.0) g/dL RDW 12.4 (11.5-15.5) % Plt Count 226 (150-450) k/uL MPV 7.7 Neutrophils % 50 % Lymphocytes % 38 % Monocytes % 8 % Eosinophils % 2 % Basophils % 1 % Neutrophils # 3.0 (1.3-7.7) k/uL Lymphocytes # 2.3 (1.0-4.8) k/uL Monocytes # 0.5 (0-1.0) k/uL Eosinophils # 0.2 (0-0.7) k/uL Basophils # 0.0 (0-0.2) k/uL Sodium 138 (137-145) mmol/L Potassium 4.0 (3.5-5.1) mmol/L Chloride 106 (98-107) mmol/L Carbon Dioxide 25 (22-30) mmol/L Anion Gap 7 mmol/L BUN 9 (9-20) mg/dL Creatinine 0.82 (0.66-1.25) mg/dL Est GFR (CKD-EPI)AfAm >90 (>60 ml/min/1.73 sqM) Est GFR (CKD-EPI)NonAf >90 (>60 ml/min/1.73 sqM) Glucose 100 H (74-99) mg/dL Plasma Lactic Acid Jorje 1.5 (0.7-2.0) mmol/L Calcium 8.5 (8.4-10.2) mg/dL Total Bilirubin 0.3 (0.2-1.3) mg/dL AST 44 (17-59) U/L ALT 71 H (4-49) U/L Alkaline Phosphatase 72 (38-126) U/L Total Protein 6.8 (6.3-8.2) g/dL Albumin 4.1 (3.5-5.0) g/dL Urine Color Urine Appearance (Clear) Urine pH (5.0-8.0) Ur Specific [place] (1.001-1.035) Urine Protein (Negative) Urine Glucose (UA) (Negative) Urine Ketones (Negative) Urine Blood (Negative) Urine Nitrite (Negative) Urine Bilirubin (Negative) Urine Urobilinogen (<2.0) mg/dL Ur Leukocyte Esterase (Negative) Urine RBC (0-5) /hpf Urine WBC (0-5) /hpf Ur Squamous Epith Cells (0-4) /hpf Urine Mucus (None) /hpf 03/08/22 Range/Units 06:00 WBC (3.8-10.6) k/uL RBC (4.30-5.90) m/uL Hgb (13.0-17.5) gm/dL Hct (39.0-53.0) % MCV (80.0-100.0) fL MCH (25.0-35.0) pg MCHC (31.0-37.0) g/dL RDW (11.5-15.5) % Plt Count (150-450) k/uL MPV Neutrophils % % Lymphocytes % % Monocytes % % Eosinophils % % Basophils % % Neutrophils # (1.3-7.7) k/uL Lymphocytes # (1.0-4.8) k/uL Monocytes # (0-1.0) k/uL Eosinophils # (0-0.7) k/uL Basophils # (0-0.2) k/uL Sodium (137-145) mmol/L Potassium (3.5-5.1) mmol/L Chloride (98-107) mmol/L Carbon Dioxide (22-30) mmol/L Anion Gap mmol/L BUN (9-20) mg/dL Creatinine (0.66-1.25) mg/dL Est GFR (CKD-EPI)AfAm (>60 ml/min/1.73 sqM) Est GFR (CKD-EPI)NonAf (>60 ml/min/1.73 sqM) Glucose (74-99) mg/dL Plasma Lactic Acid Jorje (0.7-2.0) mmol/L Calcium (8.4-10.2) mg/dL Total Bilirubin (0.2-1.3) mg/dL AST (17-59) U/L ALT (4-49) U/L Alkaline Phosphatase (38-126) U/L Total Protein (6.3-8.2) g/dL Albumin (3.5-5.0) g/dL Urine Color Yellow Urine Appearance Clear (Clear) Urine pH 6.0 (5.0-8.0) Ur Specific [place] >1.050 H (1.001-1.035) Urine Protein Trace H (Negative) Urine Glucose (UA) Negative (Negative) Urine Ketones Negative (Negative) Urine Blood Negative (Negative) Urine Nitrite Negative (Negative) Urine Bilirubin Negative (Negative) Urine Urobilinogen <2.0 (<2.0) mg/dL Ur Leukocyte Esterase Small H (Negative) Urine RBC 7 H (0-5) /hpf Urine WBC 16 H (0-5) /hpf Ur Squamous Epith Cells 1 (0-4) /hpf Urine Mucus Rare H (None) /hpf Disposition <Tatianna Muhammad - Last Filed: 03/08/22 04:34> Is patient prescribed a controlled substance at d/c from ED?: No Time of Disposition: 06:55 <Vito Pop - Last Filed: 03/08/22 06:58> Clinical Impression: Abdominal pain Disposition: HOME SELF-CARE Instructions (If sedation given, give patient instructions): Abdominal Pain (ED) Referrals: Marycarmen Gaston MD [Primary Care Provider] - 1-2 days
[2022-03-08 05:46] LABS: Basophils % (A) 1 %; Eosinophils # (A) 0.2 k/uL (0-0.7); Eosinophils % (A) 2 %; HCT 44.4 % (39.0-53.0); HGB 14.9 gm/dL (13.0-17.5); Lymphocytes # (A) 2.3 k/uL (1.0-4.8); Lymphocytes % (A) 38 %; MCH 28.7 pg (25.0-35.0); MCHC 33.6 g/dL (31.0-37.0); MCV 85.6 fL (80.0-100.0); Mean Platelet Volume 7.7; Monocytes # (A) 0.5 k/uL (0-1.0); Monocytes % (A) 8 %; Neutrophils % (A) 50 %; Platelet Count 226 k/uL (150-450); RBC 5.19 m/uL (4.30-5.90); RDW 12.4 % (11.5-15.5); WBC 6.1 k/uL (3.8-10.6)
[2022-03-08 06:05] LABS: ALT 71 U/L (4-49); AST 44 U/L (17-59); African American GFR (CKD) >90 (>60 ml/min/1.73 sqM); Albumin 4.1 g/dL (3.5-5.0); Alkaline Phosphatase 72 U/L (38-126); Anion Gap 7 mmol/L; Blood Urea Nitrogen 9 mg/dL (9-20); Calcium 8.5 mg/dL (8.4-10.2); Carbon Dioxide 25 mmol/L (22-30); Chloride 106 mmol/L (98-107); Glucose 100 mg/dL (74-99); Non-African American GFR(CKD) >90 (>60 ml/min/1.73 sqM); Sodium 138 mmol/L (137-145); Total Bilirubin 0.3 mg/dL (0.2-1.3); Total Protein 6.8 g/dL (6.3-8.2)
[2022-03-08 06:47] LABS: Appearance,Urine Clear (Clear); Bilirubin,Urine Negative (Negative); Blood,Urine Negative (Negative); Color,Urine Yellow; Glucose,Urine (UA) Negative (Negative); Ketones,Urine Negative (Negative); Leukocyte Esterase,Urine Small (Negative); Mucus,Urine Rare /hpf; Nitrite,Urine Negative (Negative); Protein,Urine Trace (Negative); RBC,Urine 7 /hpf (0-5); Squamous Epithelial Cell,Urine 1 /hpf (0-4); Urobilinogen,Urine <2.0 mg/dL (<2.0); WBC,Urine 16 /hpf (0-5)
[2022-03-08 06:52] LABS: Specific Gravity,Urine >1.050 (1.001-1.035)
[2022-03-08 07:02] VITALS: BP 135/69; PULSE 84; RESP 18; TEMP 98.1
== END 2022-03-08 07:05 | disposition home or self-care (01) ==
LOC: EC 00:33
DX: R10.32 Left lower quadrant pain (principal); J45.909 Unspecified asthma, uncomplicated; G40.909 Epilepsy, unspecified, not intractable, without status epilepticus; F31.9 Bipolar disorder, unspecified; F17.200 Nicotine dependence, unspecified, uncomplicated; F12.90 Cannabis use, unspecified, uncomplicated; Z88.2 Allergy status to sulfonamides; Z88.8 Allergy status to other drugs, medicaments and biological substances; Z79.899 Other long term (current) drug therapy
CPT/HCPCS: 36415; 80053; 83605; 85025; 81001; 87086; 74177; 99284; 96360; Q9967

== ENCOUNTER 2022-03-11 03:51 | Emergency (ER) | payer OTHER ==
[2022-03-11 04:15] LABS: Basophils # (A) 0.1 k/uL (0-0.2); Basophils % (A) 1 %; Eosinophils # (A) 0.2 k/uL (0-0.7); Eosinophils % (A) 3 %; HGB 14.9 gm/dL (13.0-17.5); Lymphocytes # (A) 2.2 k/uL (1.0-4.8); Lymphocytes % (A) 32 %; MCH 29.1 pg (25.0-35.0); MCHC 34.6 g/dL (31.0-37.0); MCV 84.2 fL (80.0-100.0); Mean Platelet Volume 7.4; Monocytes # (A) 0.6 k/uL (0-1.0); Monocytes % (A) 8 %; Neutrophils # (A) 3.8 k/uL (1.3-7.7); Neutrophils % (A) 54 %; Platelet Count 221 k/uL (150-450); RBC 5.11 m/uL (4.30-5.90); RDW 12.3 % (11.5-15.5); WBC 6.9 k/uL (3.8-10.6)
[2022-03-11 04:32] LABS: ALT 76 U/L (4-49); AST 47 U/L (17-59); African American GFR (CKD) >90 (>60 ml/min/1.73 sqM); Albumin 4.3 g/dL (3.5-5.0); Alkaline Phosphatase 56 U/L (38-126); Anion Gap 7 mmol/L; Blood Urea Nitrogen 14 mg/dL (9-20); Carbon Dioxide 24 mmol/L (22-30); Chloride 107 mmol/L (98-107); Glucose 121 mg/dL (74-99); Non-African American GFR(CKD) >90 (>60 ml/min/1.73 sqM); Potassium 4.2 mmol/L (3.5-5.1); Sodium 138 mmol/L (137-145); Total Bilirubin 0.4 mg/dL (0.2-1.3); Total Protein 6.8 g/dL (6.3-8.2)
--- NOTE | 2022-03-11 06:09 | ED ---
Seizure HPI - General Chief Complaint: Seizure Stated Complaint: Seizure Time Seen by Provider: 03/11/22 04:09 Source: EMS Mode of arrival: EMS - History of Present Illness Initial Comments: This patient is a 32-year-old man with history of seizure disorder who presents after he had 2 seizures tonight. The patient reported just ended up later than his usual and when he was about ready to go to bed he felt funny then friend reported that he had a tonic-clonic seizure. When I interview the patient, he denies complaints. MD Complaint: seizure -: minutes(s) Description of Episode: loss of consciousness, tonic-clonic movement -: minutes(s) Witnessed: yes - by bystander Trauma: No Seizure History: known seizure disorder Place: other Possible Precipitating Event: none Associated Symptoms: denies other symptoms Treatments Prior to Arrival: none - Related Data Home Medications Medication Instructions Recorded Confirmed Loratadine [Claritin] 10 mg PO DAILY 01/28/18 02/24/22 Montelukast [Singulair] 10 mg PO DAILY 01/28/18 02/24/22 ARIPiprazole [Abilify] 10 mg PO DAILY 04/28/20 02/24/22 Albuterol Nebulized [Ventolin 2.5 mg INHALATION RT-Q6H PRN 07/25/20 02/24/22 Nebulized] Albuterol Sulfate [Proair Hfa] 2 puff INHALATION RT-QID PRN 07/25/20 02/24/22 Cholecalciferol (Vitamin D3) 125 mcg PO DAILY 07/25/20 02/24/22 [Vitamin D3 (5000 Iu)] Fluticasone Propion/Salmeterol 2 puff INHALATION RT-BID 07/25/20 02/24/22 [Advair Hfa 230-21 Mcg Inhaler] Meclizine HCl 25 mg PO TID PRN 07/25/20 02/24/22 Naproxen [Naprosyn] 500 mg PO Q12HR PRN 07/25/20 02/24/22 Simethicone Chew [Mylicon Chew] 80 mg PO ACHS PRN 07/25/20 02/24/22 Valtoco 10 Mg/[place] 1 spray NASAL ONCE PRN 02/24/22 02/24/22 Previous Rx's Medication Instructions Recorded levETIRAcetam [Keppra] 1,000 mg PO Q12HR #60 tab 02/25/22 Allergies Allergy/AdvReac Type Severity Reaction Status Date / Time diphenhydramine Allergy Confusion Verified 03/08/22 01:18 [From Benadryl] Sulfa (Sulfonamide Allergy Swelling Verified 03/08/22 01:18 Antibiotics) sulfamethoxazole Allergy Swelling Verified 03/08/22 01:18 [From Bactrim] trimethoprim [From Bactrim] Allergy Swelling Verified 03/08/22 01:18 Review of Systems ROS Statement: Those systems with pertinent positive or pertinent negative responses have been documented in the HPI. ROS Other: All systems not noted in ROS Statement are negative. Constitutional: Denies: fever, chills Respiratory: Denies: cough, dyspnea Cardiovascular: Denies: chest pain, palpitations, edema Gastrointestinal: Denies: abdominal pain, vomiting, diarrhea Genitourinary: Denies: dysuria, hematuria Musculoskeletal: Denies: back pain Skin: Denies: rash Neurological: Denies: headache, weakness Past Medical History Past Medical History: Asthma, Liver Disease, Seizure Disorder Additional Past Medical History / Comment(s): PTSD, chronic migraines, HX SEIZURES-LAST ONE 11/2019-NOT ON ANY MEDS FOR THEM (PT STATES SEIZURES ARE STRESS INDUCED History of Any Multi-Drug Resistant Organisms: MRSA Date of last positivie culture/infection: 2005 MDRO Source:: leg Past Surgical History: No Surgical Hx Reported Additional Past Surgical History / Comment(s): forehead reconstruction for head lac as child, hernie repair, Past Anesthesia/Blood Transfusion Reactions: No Reported Reaction Past Psychological History: Bipolar, Depression, PTSD, Schizoaffective Disorder Smoking Status: Current every day smoker Past Alcohol Use History: Occasional Past Drug Use History: Marijuana - Past Family History Father Family Medical History: Cancer Additional Family Medical History / Comment(s): ADOPTED-NOT TOTALLY SURE OF HHX Mother Family Medical History: Cancer Additional Family Medical History / Comment(s): ADOPTED-NOT TOTALLY SURE OF HHX General Exam General appearance: alert, in no apparent distress Head exam: Present: atraumatic, normocephalic Eye exam: Present: normal appearance, PERRL, EOMI. Absent: scleral icterus, conjunctival injection ENT exam: Present: normal oropharynx Neck exam: Present: normal inspection Respiratory exam: Present: normal lung sounds bilaterally. Absent: respiratory distress, wheezes, rales, rhonchi, stridor Cardiovascular Exam: Present: regular rate, normal rhythm, normal heart sounds. Absent: systolic murmur, diastolic murmur, rubs, gallop GI/Abdominal exam: Present: soft. Absent: distended, tenderness, guarding, rebound, rigid Extremities exam: Present: normal inspection, normal capillary refill. Absent: pedal edema, calf tenderness Back exam: Present: normal inspection. Absent: CVA tenderness (R), CVA tenderness (L) Neurological exam: Present: alert, CN II-XII intact. Absent: motor sensory deficit Skin exam: Present: warm, dry, intact, normal color. Absent: rash Course Vital Signs 03/11/22 03/11/22 03/11/22 03:59 05:52 06:38 Temperature 97.3 F L Pulse Rate 102 H 73 69 Respiratory 18 16 16 Rate Blood Pressure 129/87 120/79 121/64 O2 Sat by Pulse 95 97 98 Oximetry 03/11/22 03/11/22 08:09 08:19 Temperature 98.0 F Pulse Rate 70 84 Respiratory 18 18 Rate Blood Pressure 129/89 O2 Sat by Pulse 97 Oximetry Medical Decision Making - Medical Decision Making Patient is 32-year-old man with underlying seizure disorder who appears to have had breakthrough seizure. He didn't return to baseline here and stable for dis charge, no atypical features to his presentation today. Patient will follow with his neurologist, return here if there is any difficulty in the interim. Was pt. sent in by a medical professional or institution? @ no Did you speak to anyone other than the patient for history? @A friend of the patient Did you review nursing and triage notes? @ -[agree Were old charts reviewed? @ -Yes previous ER visits reviewed Differential Diagnosis? @ - Seizure differential included chronic seizure disorder, head injury, electrolyte abnormality, medication and substance induced seizure, withdrawal seizure EKG interpreted by me (3pts min.)? @ -no X-rays interpreted by me (1pt min.)? @ no CT interpreted by me (1pt min.)? @ -no U/S interpreted by me (1pt. min.)? @ -[none] What testing was considered but not performed? (CT, X-rays, U/S, labs)? Why? @ [ What meds were considered but not given? Why? @ -[none] Did you discuss the management of the patient with other professionals? @ -no Did you reconcile home meds? @ -[none] Was smoking cessation discussed for >3mins.? @ -[none] Was critical care preformed (if so, how long)? @ -[none] Were there social determinants of health that impacted care today? How? (Deon elessness, low income, unemployed, alcoholism, drug addiction, transportation, low edu. Level, literacy, decrease access to med. care, correction, rehab)? @ -[no Was there de-escalation of care discussed even if they declined? (Discuss DNR or withdrawal of care, Hospice)? @ -[no What co-morbidities impacted this encounter? (DM, HTN, Smoking, COPD, CAD, Cancer, CVA, Hep., AIDS, mental health diagnosis, sleep apnea, morbid obesity)? @ -none Was patient admitted / discharged? @Discharged Undiagnosed new problem with uncertain prognosis? @ -[none] Drug Therapy requiring intensive monitoring for toxicity (Heparin, Nitro, Insulin, Cardizem)? @ -[none] Were any procedures done? @ -[none] Diagnosis/symptom? @ -Seizure disorder Acute, or Chronic, or Acute on Chronic? @ -Chronic Uncomplicated (without systemic symptoms) or Complicated (systemic symptoms)? @ -[Uncomplicated Side effects of treatment? @ -[none] Exacerbation, Progression, or Severe Exacerbation] @ -[no] Poses a threat to life or bodily function? @ -[no] - Lab Data Result diagrams: 03/11/22 04:07 03/11/22 04:07 Lab Results 03/11/22 03/11/22 Range/Units 04:07 04:07 WBC 6.9 (3.8-10.6) k/uL RBC 5.11 (4.30-5.90) m/uL Hgb 14.9 (13.0-17.5) gm/dL Hct 43.0 (39.0-53.0) % MCV 84.2 (80.0-100.0) fL MCH 29.1 (25.0-35.0) pg MCHC 34.6 (31.0-37.0) g/dL RDW 12.3 (11.5-15.5) % Plt Count 221 (150-450) k/uL MPV 7.4 Neutrophils % 54 % Lymphocytes % 32 % Monocytes % 8 % Eosinophils % 3 % Basophils % 1 % Neutrophils # 3.8 (1.3-7.7) k/uL Lymphocytes # 2.2 (1.0-4.8) k/uL Monocytes # 0.6 (0-1.0) k/uL Eosinophils # 0.2 (0-0.7) k/uL Basophils # 0.1 (0-0.2) k/uL Sodium 138 (137-145) mmol/L Potassium 4.2 (3.5-5.1) mmol/L Chloride 107 (98-107) mmol/L Carbon Dioxide 24 (22-30) mmol/L Anion Gap 7 mmol/L BUN 14 (9-20) mg/dL Creatinine 0.88 (0.66-1.25) mg/dL Est GFR (CKD-EPI)AfAm >90 (>60 ml/min/1.73 sqM) Est GFR (CKD-EPI)NonAf >90 (>60 ml/min/1.73 sqM) Glucose 121 H (74-99) mg/dL Calcium 9.0 (8.4-10.2) mg/dL Total Bilirubin 0.4 (0.2-1.3) mg/dL AST 47 (17-59) U/L ALT 76 H (4-49) U/L Alkaline Phosphatase 56 (38-126) U/L Total Protein 6.8 (6.3-8.2) g/dL Albumin 4.3 (3.5-5.0) g/dL Disposition Clinical Impression: Recurrent seizures Disposition: HOME SELF-CARE Condition: Good Instructions (If sedation given, give patient instructions): Recurrent Seizures in Adults (ED) Is patient prescribed a controlled substance at d/c from ED?: No Referrals: Marycarmen Gaston MD [Primary Care Provider] - 1-2 days
[2022-03-11 08:16] VITALS: BP 129/89; RESP 18; TEMP 98
[2022-03-11 08:29] VITALS: PULSE 84
== END 2022-03-11 08:20 | disposition home or self-care (01) ==
LOC: EC 03:51
DX: R56.9 Unspecified convulsions (principal); J45.909 Unspecified asthma, uncomplicated; F31.9 Bipolar disorder, unspecified; F12.90 Cannabis use, unspecified, uncomplicated; F17.200 Nicotine dependence, unspecified, uncomplicated; Z88.1 Allergy status to other antibiotic agents; Z88.2 Allergy status to sulfonamides; Z88.8 Allergy status to other drugs, medicaments and biological substances; Z79.899 Other long term (current) drug therapy
CPT/HCPCS: 36415; 80053; 80177; 85025; 99285

== ENCOUNTER 2022-05-31 21:13 | Emergency (ER) | payer OTHER ==
[2022-05-31 21:26] VITALS: RESP 16
[2022-05-31] MEDS ORDERED: levETIRAcetam IV 1,500 MG in SALINE 1 100ML.BAG IVPB STA (21:48)
--- NOTE | 2022-05-31 21:48 | ED ---
Seizure HPI - General Chief Complaint: Seizure Stated Complaint: Seizure Time Seen by Provider: 05/31/22 21:15 Source: EMS Mode of arrival: EMS Limitations: altered mental status - History of Present Illness Initial Comments: 's patient is 32-year-old man with history of seizure disorder who is brought by ambulance to have evaluation after he reportedly had multiple seizures at home. On arrival the patient is not able to give additional history as he does appear to be post ictal. MD Complaint: seizure -: minutes(s) Description of Episode: loss of consciousness, tonic-clonic movement -: minutes(s) Witnessed: yes - by bystander Trauma: No Seizure History: known seizure disorder Place: home Possible Precipitating Event: none Associated Symptoms: denies other symptoms Treatments Prior to Arrival: benzodiazepines - Related Data Home Medications Medication Instructions Recorded Confirmed Loratadine [Claritin] 10 mg PO DAILY 01/28/18 05/09/22 Montelukast [Singulair] 10 mg PO DAILY 01/28/18 05/09/22 ARIPiprazole [Abilify] 10 mg PO DAILY 04/28/20 05/09/22 Albuterol Nebulized [Ventolin 2.5 mg INHALATION RT-Q6H PRN 07/25/20 05/09/22 Nebulized] Albuterol Sulfate [Proair Hfa] 2 puff INHALATION RT-QID PRN 07/25/20 05/09/22 Cholecalciferol (Vitamin D3) 125 mcg PO DAILY 07/25/20 05/09/22 [Vitamin D3 (5000 Iu)] Fluticasone Propion/Salmeterol 2 puff INHALATION RT-BID 07/25/20 05/09/22 [Advair Hfa 230-21 Mcg Inhaler] Meclizine HCl 25 mg PO TID PRN 07/25/20 05/09/22 Naproxen [Naprosyn] 500 mg PO Q12HR PRN 07/25/20 05/09/22 Simethicone Chew [Mylicon Chew] 80 mg PO ACHS PRN 07/25/20 05/09/22 Valtoco 10 Mg/[place] 1 spray NASAL DIRECTED PRN 02/24/22 05/09/22 levETIRAcetam [Keppra] 750 mg PO Q12H 05/09/22 05/09/22 Allergies Allergy/AdvReac Type Severity Reaction Status Date / Time diphenhydramine Allergy Confusion Verified 04/24/22 00:50 [From Benadryl] Sulfa (Sulfonamide Allergy Swelling Verified 04/24/22 00:50 Antibiotics) sulfamethoxazole Allergy Swelling Verified 04/24/22 00:50 [From Bactrim] trimethoprim [From Bactrim] Allergy Swelling Verified 04/24/22 00:50 Review of Systems ROS Statement: Those systems with pertinent positive or pertinent negative responses have been documented in the HPI. ROS Other: All systems not noted in ROS Statement are negative. Limitations: ROS unobtainable due to patients medical condition Past Medical History Past Medical History: Asthma, Liver Disease, Seizure Disorder Additional Past Medical History / Comment(s): PTSD, chronic migraines, HX SEIZURES-LAST ONE 11/2019-NOT ON ANY MEDS FOR THEM (PT STATES SEIZURES ARE STRESS INDUCED History of Any Multi-Drug Resistant Organisms: MRSA Date of last positivie culture/infection: 2005 MDRO Source:: leg Past Surgical History: No Surgical Hx Reported Additional Past Surgical History / Comment(s): forehead reconstruction for head lac as child, hernie repair, Past Anesthesia/Blood Transfusion Reactions: No Reported Reaction Past Psychological History: Bipolar, Depression, PTSD, Schizoaffective Disorder Smoking Status: Current every day smoker Past Alcohol Use History: Occasional Past Drug Use History: Marijuana - Past Family History Father Family Medical History: Cancer Additional Family Medical History / Comment(s): ADOPTED-NOT TOTALLY SURE OF HHX Mother Family Medical History: Cancer Additional Family Medical History / Comment(s): ADOPTED-NOT TOTALLY SURE OF HHX General Exam Limitations: altered mental status General appearance: obtunded Head exam: Present: atraumatic, normocephalic Eye exam: Present: normal appearance, PERRL. Absent: scleral icterus, conjunctival injection ENT exam: Present: normal oropharynx Neck exam: Present: normal inspection. Absent: tenderness Respiratory exam: Present: normal lung sounds bilaterally. Absent: respiratory distress, wheezes, rales, rhonchi, stridor, chest wall tenderness, accessory muscle use Cardiovascular Exam: Present: regular rate, normal rhythm, normal heart sounds. Absent: systolic murmur, diastolic murmur, rubs, gallop GI/Abdominal exam: Present: soft. Absent: distended, tenderness, guarding, rebound, rigid, mass Extremities exam: Present: normal inspection, normal capillary refill. Absent: pedal edema, calf tenderness Back exam: Present: normal inspection. Absent: CVA tenderness (R), CVA tenderness (L) Neurological exam: Present: CN II-XII intact, other (Patient does appear to be postictal therefore cooperation with neurologic exam limited. The patient has normal reflexes. Localizes noxious stimuli.). Absent: motor sensory deficit Skin exam: Present: warm, dry, intact, normal color. Absent: rash Course Vital Signs 05/31/22 05/31/22 05/31/22 21:20 22:20 23:00 Pulse Rate 98 89 78 Respiratory 16 16 16 Rate Blood Pressure 115/86 140/92 140/94 O2 Sat by Pulse 99 96 98 Oximetry Medical Decision Making - Medical Decision Making Patient is 32-year-old man with known seizure disorder. He was given additional Keppra has multiple seizures were reported. As the patient became alert and he returned to baseline. We discussed appropriate further care and follow-up and the patient did want to go home. Was pt. sent in by a medical professional or institution (, PA, [employer]PECTOR, urgent care, hospital, or skilled nursing...) When possible be specific @ -[No] Did you speak to anyone other than the patient for history (EMS, parent, family, police, friend...)? What history was obtained from this source @ -[EMS , patient friend Did you review nursing and triage notes (agree or disagree)? Why? @ -[I reviewed and agree with nursing and triage notes] Were old charts reviewed (outside hosp., previous admission, EMS record, old EKG, old radiological studies, urgent care reports/EKG's, skilled nursing records)? Report findings @ -[old charts were reviewed] Differential Diagnosis (chest pain, altered mental status, abdominal pain women, abdominal pain men, vaginal bleeding, weakness, fever, dyspnea, syncope, headache, dizziness, GI bleed, back pain, seizure, CVA, palpatations, mental health, musculoskeletal)? @ -[Differential Seizure: Recurrent seizure disorder, febrile seizure, alcohol withdrawal, stimulants, meningitis, encephalitis, intercranial hemorrhage, intracranial tumor, stroke, eclampsia, thyrotoxicosis, hypocalcemia, hyponatremia, hypernatremia, hypomagnesemia, psychogenic, this is not meant to be an all-inclusive list. EKG interpreted by me (3pts min.). @ -[As above] X-rays interpreted by me (1pt min.). @ -[None done] CT interpreted by me (1pt min.). @ -[None done] U/S interpreted by me (1pt. min.). @ -[None done] What testing was considered but not performed or refused? (CT, X-rays, U/S, labs)? Why? @ -[None] What meds were considered but not given or refused? Why? @ -[None] Did you discuss the management of the patient with other professionals (professionals i.e. Dr., PA, [employer] INSPECTOR, lab, RT, psych nurse, social worker aide, copier repair technician, teacher, dispatch officer, counseling case manager)? Give summary @ -[No] Was smoking cessation discussed for >3mins.? @ -[No] Was critical care preformed (if so, how long)? @ -[No] Were there social determinants of health that impacted care today? How? (Home lessness, low income, unemployed, alcoholism, drug addiction, transportation, low edu. Level, literacy, decrease access to med. care, correction, rehab)? @ -[No] Was there de-escalation of care discussed even if they declined (Discuss DNR or withdrawal of care, Hospice)? DNR status @ -[No] What co-morbidities impacted this encounter? (DM, HTN, Smoking, COPD, CAD, Cancer, CVA, ARF, Chemo, Hep., AIDS, mental health diagnosis, sleep apnea, morbid obesity)? @ -[None] Was patient admitted / discharged? Hospital course, mention meds given and route, prescriptions, significant lab abnormalities, going to OR and other pertinent info. @ -[Discharged Undiagnosed new problem with uncertain prognosis? @ -[No] Drug Therapy requiring intensive monitoring for toxicity (Heparin, Nitro, Insulin, Cardizem)? @ -[No] Were any procedures done? @ -[No] Diagnosis/symptom? @ -[Acute generalized tonic-clonic seizure, uncomplicated Acute, or Chronic, or Acute on Chronic? @ -[default] Uncomplicated (without systemic symptoms) or Complicated (systemic symptoms)? @ -[default] Side effects of treatment? @ -[No] Exacerbation, Progression, or Severe Exacerbation? @ -[No] Poses a threat to life or bodily function? How? (Chest pain, [place], MD, pneumonia, PE, COPD, DKA, ARF, appy, cholecystitis, CVA, Diverticulitis, Homicidal, Suicidal, threat to staff... and all critical care pts) @ -[No] - Lab Data Result diagrams: 05/31/22 21:35 05/31/22 21:35 Lab Results 05/31/22 05/31/22 Range/Units 21:35 21:35 WBC 6.7 (3.8-10.6) k/uL RBC 5.39 (4.30-5.90) m/uL Hgb 15.5 (13.0-17.5) gm/dL Hct 46.0 (39.0-53.0) % MCV 85.3 (80.0-100.0) fL MCH 28.8 (25.0-35.0) pg MCHC 33.8 (31.0-37.0) g/dL RDW 12.7 (11.5-15.5) % Plt Count 244 (150-450) k/uL MPV 7.6 Neutrophils % 58 % Lymphocytes % 32 % Monocytes % 7 % Eosinophils % 2 % Basophils % 1 % Neutrophils # 3.9 (1.3-7.7) k/uL Lymphocytes # 2.1 (1.0-4.8) k/uL Monocytes # 0.5 (0-1.0) k/uL Eosinophils # 0.1 (0-0.7) k/uL Basophils # 0.0 (0-0.2) k/uL Sodium 139 (137-145) mmol/L Potassium 4.0 (3.5-5.1) mmol/L Chloride 104 (98-107) mmol/L Carbon Dioxide 27 (22-30) mmol/L Anion Gap 8 mmol/L BUN 11 (9-20) mg/dL Creatinine 0.91 (0.66-1.25) mg/dL Est GFR (CKD-EPI)AfAm >90 (>60 ml/min/1.73 sqM) Est GFR (CKD-EPI)NonAf >90 (>60 ml/min/1.73 sqM) Glucose 88 (74-99) mg/dL Calcium 9.3 (8.4-10.2) mg/dL Magnesium 2.1 (1.6-2.3) mg/dL Total Bilirubin 0.9 (0.2-1.3) mg/dL AST 64 H (17-59) U/L ALT 112 H (4-49) U/L Alkaline Phosphatase 74 (38-126) U/L Total Protein 8.0 (6.3-8.2) g/dL Albumin 4.9 (3.5-5.0) g/dL - EKG Data EKG shows normal: sinus rhythm, axis ([place] normal), intervals (Normal), QRS complexes (Normal), ST-T waves (Normal) Rate: normal (Rate 90 bpm) Interpretation: normal EKG Disposition Clinical Impression: Recurrent seizures Disposition: HOME SELF-CARE Condition: Good Instructions (If sedation given, give patient instructions): Seizure/Epilepsy Discharge Instructions & Follow-Up Is patient prescribed a controlled substance at d/c from ED?: No Referrals: Marycarmen Gaston MD [Primary Care Provider] - 1-2 days Yodit Hillman MD [STAFF PHYSICIAN] - 1-2 days
[2022-05-31 22:05] LABS: Basophils % (A) 1 %; Eosinophils # (A) 0.1 k/uL (0-0.7); Eosinophils % (A) 2 %; HGB 15.5 gm/dL (13.0-17.5); Lymphocytes # (A) 2.1 k/uL (1.0-4.8); Lymphocytes % (A) 32 %; MCH 28.8 pg (25.0-35.0); MCHC 33.8 g/dL (31.0-37.0); MCV 85.3 fL (80.0-100.0); Mean Platelet Volume 7.6; Monocytes # (A) 0.5 k/uL (0-1.0); Monocytes % (A) 7 %; Neutrophils # (A) 3.9 k/uL (1.3-7.7); Neutrophils % (A) 58 %; Platelet Count 244 k/uL (150-450); RBC 5.39 m/uL (4.30-5.90); RDW 12.7 % (11.5-15.5); WBC 6.7 k/uL (3.8-10.6)
[2022-05-31 22:17] LABS: ALT 112 U/L (4-49); AST 64 U/L (17-59); African American GFR (CKD) >90 (>60 ml/min/1.73 sqM); Albumin 4.9 g/dL (3.5-5.0); Alkaline Phosphatase 74 U/L (38-126); Anion Gap 8 mmol/L; Blood Urea Nitrogen 11 mg/dL (9-20); Calcium 9.3 mg/dL (8.4-10.2); Carbon Dioxide 27 mmol/L (22-30); Chloride 104 mmol/L (98-107); Glucose 88 mg/dL (74-99); Magnesium 2.1 mg/dL (1.6-2.3); Non-African American GFR(CKD) >90 (>60 ml/min/1.73 sqM); Sodium 139 mmol/L (137-145); Total Bilirubin 0.9 mg/dL (0.2-1.3)
[2022-05-31 23:06] VITALS: BP 140/94; PULSE 78
== END 2022-05-31 23:48 | disposition home or self-care (01) ==
LOC: EC 21:13
DX: G40.909 Epilepsy, unspecified, not intractable, without status epilepticus (principal); F12.90 Cannabis use, unspecified, uncomplicated; F17.200 Nicotine dependence, unspecified, uncomplicated; J45.909 Unspecified asthma, uncomplicated; F32.A Depression, unspecified; Z88.2 Allergy status to sulfonamides; Z88.1 Allergy status to other antibiotic agents; Z88.8 Allergy status to other drugs, medicaments and biological substances; Z79.899 Other long term (current) drug therapy
CPT/HCPCS: 99284; 96365 ×2; 36415; 93005; 80053; 80177; 83735; 85025; 99285; J1953

== ENCOUNTER 2022-06-02 20:00 | Observation (INO) | payer OTHER ==
[2022-06-02] MEDS ORDERED: SODIUM CHLORIDE 0.9% 1,000 ML IV STA (20:02)
--- NOTE | 2022-06-02 20:17 | ED ---
General Adult HPI - General Chief complaint: Seizure Stated complaint: Seizure Time Seen by Provider: 06/02/22 20:04 Source: EMS, old records reviewed Mode of arrival: EMS Limitations: altered mental status - History of Present Illness Initial comments: Patient brought to the ED by EMS for evaluation. Per EMS, they were called by the patient's friend who reported to them that the patient was having seizure activity. Per EMS, the patient was noted to have a generalized, tonic-clonic seizure on their arrival, and he was given Versed 10 mg IM by EMS. Per EMS, the patient's blood glucose was checked and was in the 180s. There was no report of trauma or alcohol/drug abuse from the patient's friend per EMS. Patient is postictal at this time, and he is not responding to any of my questions. No other history is available at this time. - Related Data Home Medications Medication Instructions Recorded Confirmed Loratadine [Claritin] 10 mg PO DAILY 01/28/18 06/02/22 Montelukast [Singulair] 10 mg PO DAILY 01/28/18 06/02/22 ARIPiprazole [Abilify] 10 mg PO DAILY 04/28/20 06/02/22 Albuterol Nebulized [Ventolin 2.5 mg INHALATION RT-Q6H PRN 07/25/20 06/02/22 Nebulized] Albuterol Sulfate [Proair Hfa] 2 puff INHALATION RT-QID PRN 07/25/20 06/02/22 Cholecalciferol (Vitamin D3) 125 mcg PO DAILY 07/25/20 06/02/22 [Vitamin D3 (5000 Iu)] Fluticasone Propion/Salmeterol 2 puff INHALATION RT-BID 07/25/20 06/02/22 [Advair Hfa 230-21 Mcg Inhaler] Meclizine HCl 25 mg PO TID PRN 07/25/20 06/02/22 Naproxen [Naprosyn] 500 mg PO Q12HR PRN 07/25/20 06/02/22 Simethicone Chew [Mylicon Chew] 80 mg PO ACHS PRN 07/25/20 06/02/22 Valtoco 10 Mg/[place] 1 spray NASAL DIRECTED PRN 02/24/22 06/02/22 levETIRAcetam [Keppra] 750 mg PO Q12H 05/09/22 06/02/22 Allergies Allergy/AdvReac Type Severity Reaction Status Date / Time diphenhydramine Allergy Confusion Verified 06/02/22 21:37 [From Benadryl] Sulfa (Sulfonamide Allergy Swelling Verified 06/02/22 21:37 Antibiotics) sulfamethoxazole Allergy Swelling Verified 06/02/22 21:37 [From Bactrim] trimethoprim [From Bactrim] Allergy Swelling Verified 06/02/22 21:37 Review of Systems ROS Statement: Those systems with pertinent positive or pertinent negative responses have been documented in the HPI. ROS Other: All systems not noted in ROS Statement are negative. Limitations: ROS unobtainable due to patients medical condition Past Medical History Past Medical History: Asthma, Liver Disease, Seizure Disorder Additional Past Medical History / Comment(s): PTSD, chronic migraines, HX SEIZURES-LAST ONE 11/2019-NOT ON ANY MEDS FOR THEM (PT STATES SEIZURES ARE STRESS INDUCED History of Any Multi-Drug Resistant Organisms: MRSA Date of last positivie culture/infection: 2005 MDRO Source:: leg Past Surgical History: No Surgical Hx Reported Additional Past Surgical History / Comment(s): forehead reconstruction for head lac as child, hernie repair, Past Anesthesia/Blood Transfusion Reactions: No Reported Reaction Past Psychological History: Bipolar, Depression, PTSD, Schizoaffective Disorder Smoking Status: Current every day smoker Past Alcohol Use History: Occasional Past Drug Use History: Marijuana - Past Family History Father Family Medical History: Cancer Additional Family Medical History / Comment(s): ADOPTED-NOT TOTALLY SURE OF HHX Mother Family Medical History: Cancer Additional Family Medical History / Comment(s): ADOPTED-NOT TOTALLY SURE OF HHX General Exam Limitations: altered mental status General appearance: other (Patient is unresponsive to verbal stimulus, but localizes to painful stimulus; patient is moving all 4 extremities spontaneously) Head exam: Present: atraumatic, normocephalic Eye exam: Present: normal appearance, PERRL ENT exam: Present: mucous membranes moist, TM's normal bilaterally Neck exam: Present: other (Trachea is in midline). Absent: meningismus Respiratory exam: Present: normal lung sounds bilaterally. Absent: respiratory distress, wheezes, rales, rhonchi, stridor Cardiovascular Exam: Present: regular rate, normal rhythm, normal heart sounds, other (Normal radial pulses bilaterally) GI/Abdominal exam: Present: soft. Absent: tenderness, guarding Extremities exam: Absent: pedal edema Back exam: Present: normal inspection Neurological exam: Present: other (Patient is unresponsive to verbal stimulus, but localizes to painful stimulus; patient is moving all 4 extremities spontaneously) Skin exam: Present: warm, dry, intact, normal color Course Vital Signs 06/02/22 06/02/22 20:04 20:10 Temperature 97.9 F Pulse Rate 79 Respiratory 12 Rate Blood Pressure 141/94 135/102 O2 Sat by Pulse 100 Oximetry - Reevaluation(s) Reevaluation #1: 06/02/22 20:16 Patient is starting to become more responsive now. Patient states that he takes Keppra for his seizures, and he states that he has been taking his Keppra regularly. 06/02/22 21:55 Patient remains minimally responsive, which I suspect is likely due to a combination of his postictal state and the IM Versed he was given by EMS. Patient's brother is currently in the ED at bedside with the patient. He is aware of the patient's test results. He agrees with hospital admission at this time. 06/02/22 22:02 Case, H&P, test results and ED/EMS management were discussed with ACCOUNT SUPERVISOR Julieat Gomez. She accepts hospital admission on behalf of herself and Dr. Newton. She agrees with neurology consultation. She has no further recommendations at this time. EKG Findings - EKG Comments: EKG Findings:: ED physician interpretation: Sinus rhythm with first-degree AV block, no ectopy, ventricular rate of 81 bpm, CT interval of 243 ms, normal QRS duration, normal QT interval, normal axis, no ST or T-wave abnormality Medical Decision Making - Medical Decision Making Was pt. sent in by a medical professional or institution (, PA, ACCOUNT SUPERVISOR, urgent care, hospital, or care home...) When possible be specific @ -[No] Did you speak to anyone other than the patient for history (EMS, parent, family, police, friend...)? What history was obtained from this source @ -History was obtained from EMS. Did you review nursing and triage notes (agree or disagree)? Why? @ -[I reviewed and agree with nursing and triage notes] Were old charts reviewed (outside hosp., previous admission, EMS record, old EKG, old radiological studies, urgent care reports/EKG's, care home records)? Report findings @ -[No old charts were reviewed] Differential Diagnosis (chest pain, altered mental status, abdominal pain women, abdominal pain men, vaginal bleeding, weakness, fever, dyspnea, syncope, headache, dizziness, GI bleed, back pain, seizure, CVA, palpatations, mental health, musculoskeletal)? @ -Differential Seizure: Recurrent seizure disorder, alcohol withdrawal, stimulants, encephalitis, intercranial hemorrhage, intracranial tumor, stroke, hypocalcemia, hyponatremia, hypernatremia, hypomagnesemia, psychogenic, this is not meant to be an all- inclusive list. EKG interpreted by me (3pts min.). @ -[As above] X-rays interpreted by me (1pt min.). @ -[None done] CT interpreted by me (1pt min.). @ -[Noncontrast head CT was reviewed myself, and agree with the radiologist's interpretation as above.] U/S interpreted by me (1pt. min.). @ -[None done] What testing was considered but not performed or refused? (CT, X-rays, U/S, labs)? Why? @ -[None] What meds were considered but not given or refused? Why? @ -[None] Did you discuss the management of the patient with other professionals (professionals i.e. , PA, ACCOUNT SUPERVISOR, lab, RT, psych nurse, bilingual social worker, assistant business manager, teacher, co founder and chief strategy officer, onsite case manager)? Give summary @ -As above] Was smoking cessation discussed for >3mins.? @ -[No] Was critical care preformed (if so, how long)? @ -[No] Were there social determinants of health that impacted care today? How? (Homele ssness, low income, unemployed, alcoholism, drug addiction, transportation, low edu. Level, literacy, decrease access to med. care, senior living, rehab)? @ -[No] Was there de-escalation of care discussed even if they declined (Discuss DNR or withdrawal of care, Hospice)? DNR status @ -[No] What co-morbidities impacted this encounter? (DM, HTN, Smoking, COPD, CAD, Cancer, CVA, ARF, Chemo, Hep., AIDS, mental health diagnosis, sleep apnea, morbid obesity)? @ -[History of seizure disorder] Was patient admitted / discharged? Hospital course, mention meds given and route, prescriptions, significant lab abnormalities, going to OR and other pertinent info. @ -[Patient has not had any seizure activity while in the ED. Patient has been minimally responsive, which I suspect is likely due to his postictal state and the fact that he was given Versed 10 mg IM by EMS. Patient's labs and imaging studies are fairly unremarkable. Patient reports that he has been taking his K eppra regularly as prescribed. Will admit the patient to the hospital for continued observation/monitoring and neurology consultation. ACCOUNT SUPERVISOR Julieta Jason has accepted hospital admission.] Undiagnosed new problem with uncertain prognosis? @ -[No] Drug Therapy requiring intensive monitoring for toxicity (Heparin, Nitro, Insulin, Cardizem)? @ -[No] Were any procedures done? @ -[No] Diagnosis/symptom? @ -[Generalized seizures] Acute, or Chronic, or Acute on Chronic? @ -[Acute] Uncomplicated (without systemic symptoms) or Complicated (systemic symptoms)? @ -[default] Side effects of treatment? @ -[No] Exacerbation, Progression, or Severe Exacerbation? @ -[No] Poses a threat to life or bodily function? How? (Chest pain, USA, DC, pneumonia, PE, COPD, DKA, ARF, appy, cholecystitis, CVA, Diverticulitis, Homicidal, Suicidal, threat to staff... and all critical care pts) @ -[No] - Lab Data Result diagrams: 06/02/22 20:07 06/02/22 20:07 Lab Results 06/02/22 06/02/22 Range/Units 20:07 20:07 WBC 7.0 (3.8-10.6) k/uL RBC 5.12 (4.30-5.90) m/uL Hgb 15.3 (13.0-17.5) gm/dL Hct 43.6 (39.0-53.0) % MCV 85.1 (80.0-100.0) fL MCH 29.8 (25.0-35.0) pg MCHC 35.1 (31.0-37.0) g/dL RDW 13.0 (11.5-15.5) % Plt Count 235 (150-450) k/uL MPV 7.5 Neutrophils % 57 % Lymphocytes % 32 % Monocytes % 7 % Eosinophils % 2 % Basophils % 1 % Neutrophils # 4.0 (1.3-7.7) k/uL Lymphocytes # 2.2 (1.0-4.8) k/uL Monocytes # 0.5 (0-1.0) k/uL Eosinophils # 0.1 (0-0.7) k/uL Basophils # 0.0 (0-0.2) k/uL Sodium 139 (137-145) mmol/L Potassium 4.0 (3.5-5.1) mmol/L Chloride 106 (98-107) mmol/L Carbon Dioxide 25 (22-30) mmol/L Anion Gap 8 mmol/L BUN 10 (9-20) mg/dL Creatinine 0.88 (0.66-1.25) mg/dL Est GFR (CKD-EPI)AfAm >90 (>60 ml/min/1.73 sqM) Est GFR (CKD-EPI)NonAf >90 (>60 ml/min/1.73 sqM) Glucose 107 H (74-99) mg/dL Calcium 9.4 (8.4-10.2) mg/dL Magnesium 2.0 (1.6-2.3) mg/dL Total Bilirubin 0.5 (0.2-1.3) mg/dL AST 56 (17-59) U/L ALT 101 H (4-49) U/L Alkaline Phosphatase 62 (38-126) U/L Total Protein 7.4 (6.3-8.2) g/dL Albumin 4.5 (3.5-5.0) g/dL Serum Alcohol <10 mg/dL - Radiology Data Noncontrast head CT: Negative unenhanced head CT scan. No change. Disposition Clinical Impression: Generalized seizure Disposition: ADMITTED IP TO THIS HOSP Condition: Stable Is patient prescribed a controlled substance at d/c from ED?: No Referrals: Marycarmen Gaston MD [Primary Care Provider] - 1-2 days Time of Disposition: 22:03
[2022-06-02 20:33] LABS: Basophils % (A) 1 %; Eosinophils # (A) 0.1 k/uL (0-0.7); Eosinophils % (A) 2 %; HCT 43.6 % (39.0-53.0); HGB 15.3 gm/dL (13.0-17.5); Lymphocytes # (A) 2.2 k/uL (1.0-4.8); Lymphocytes % (A) 32 %; MCH 29.8 pg (25.0-35.0); MCHC 35.1 g/dL (31.0-37.0); MCV 85.1 fL (80.0-100.0); Mean Platelet Volume 7.5; Monocytes # (A) 0.5 k/uL (0-1.0); Monocytes % (A) 7 %; Neutrophils % (A) 57 %; Platelet Count 235 k/uL (150-450); RBC 5.12 m/uL (4.30-5.90)
[2022-06-02 20:46] LABS: ALT 101 U/L (4-49); AST 56 U/L (17-59); African American GFR (CKD) >90 (>60 ml/min/1.73 sqM); Albumin 4.5 g/dL (3.5-5.0); Alcohol <10 mg/dL; Alkaline Phosphatase 62 U/L (38-126); Anion Gap 8 mmol/L; Blood Urea Nitrogen 10 mg/dL (9-20); Calcium 9.4 mg/dL (8.4-10.2); Carbon Dioxide 25 mmol/L (22-30); Chloride 106 mmol/L (98-107); Glucose 107 mg/dL (74-99); Non-African American GFR(CKD) >90 (>60 ml/min/1.73 sqM); Sodium 139 mmol/L (137-145); Total Bilirubin 0.5 mg/dL (0.2-1.3); Total Protein 7.4 g/dL (6.3-8.2)
--- NOTE | 2022-06-02 20:48 | CT ---
EXAMINATION TYPE: CT brain wo con DATE OF EXAM: 06/02/2022 COMPARISON: 05/09/2022 HISTORY: Seizures x3 CT DLP: 1201.4 mGycm Automated exposure control for dose reduction was used. Images of the brain obtained with no contrast. Ventricles have normal size. There is no mass effect nor midline shift. No sign of intracranial hemor rhage. Calvarium is intact. The skull base is intact. There is normal aeration of the mastoid sinuses . IMPRESSION: Negative unenhanced head CT scan. No change.
[2022-06-02] MEDS ORDERED: LORazepam 2 MG/ML INJ IV PRN (22:04)
[2022-06-02] MEDS: SODIUM CHLORIDE 0.9% 1,000 ML IV SCH (22:14)
[2022-06-03 00:04] LABS: Amphetamine Screen,Urine Not Detected (NotDetected); Barbiturate Screen,Urine Not Detected (NotDetected); Benzodiazepines Screen,Urine Detected (NotDetected); Cocaine Screen,Urine Not Detected (NotDetected); Methadone Screen, Urine Not Detected (NotDetected); Opiate Screen,Urine Not Detected (NotDetected); Oxycodone Screen, Urine Not Detected (NotDetected); Phencyclidine Screen,Urine Not Detected (NotDetected); Tricyclic Antidepressant,Urine Not Detected (NotDetected); Urn Cannabinoid Scrn Not Detected (NotDetected)
[2022-06-03 01:26] VITALS: RESP 16
[2022-06-03 05:51] LABS: Basophils # (A) 0.1 k/uL (0-0.2); Basophils % (A) 1 %; Eosinophils # (A) 0.1 k/uL (0-0.7); Eosinophils % (A) 2 %; HCT 43.4 % (39.0-53.0); HGB 14.9 gm/dL (13.0-17.5); Lymphocytes # (A) 2.1 k/uL (1.0-4.8); Lymphocytes % (A) 36 %; MCH 29.1 pg (25.0-35.0); MCHC 34.3 g/dL (31.0-37.0); MCV 84.8 fL (80.0-100.0); Mean Platelet Volume 8.4; Monocytes # (A) 0.4 k/uL (0-1.0); Monocytes % (A) 6 %; Neutrophils # (A) 3.1 k/uL (1.3-7.7); Neutrophils % (A) 52 %; Platelet Count 231 k/uL (150-450); RBC 5.12 m/uL (4.30-5.90); RDW 13.1 % (11.5-15.5); WBC 5.8 k/uL (3.8-10.6)
[2022-06-03 05:58] LABS: ALT 96 U/L (4-49); AST 56 U/L (17-59); African American GFR (CKD) >90 (>60 ml/min/1.73 sqM); Albumin 4.1 g/dL (3.5-5.0); Alkaline Phosphatase 52 U/L (38-126); Anion Gap 7 mmol/L; Blood Urea Nitrogen 9 mg/dL (9-20); Carbon Dioxide 23 mmol/L (22-30); Chloride 109 mmol/L (98-107); Glucose 94 mg/dL (74-99); Non-African American GFR(CKD) >90 (>60 ml/min/1.73 sqM); Potassium 4.6 mmol/L (3.5-5.1); Sodium 139 mmol/L (137-145); Total Bilirubin 0.6 mg/dL (0.2-1.3); Total Protein 6.6 g/dL (6.3-8.2)
[2022-06-03] MEDS ORDERED: ALBUTEROL NEBULIZED 2.5 MG/3 ML INHALATION PRN (08:32)
[2022-06-03] MEDS ORDERED: MECLIZINE 25 MG TAB PO PRN (08:32)
[2022-06-03] MEDS ORDERED: SIMETHICONE 80 MG CHEWABLE PO PRN (08:32)
[2022-06-03] MEDS ORDERED: NAPROXEN 250 MG TAB PO PRN (08:32)
[2022-06-03] MEDS ORDERED: [UNRECOGNIZED DRUG - OTHER] EA NOSTRIL PRN (08:32)
[2022-06-03] MEDS ORDERED: ALBUTEROL HFA INHALER INHALATION PRN (08:32)
[2022-06-03] MEDS ORDERED: CHOLECALCIFEROL 125 MCG (5000 IU) TABLET PO SCH (09:00)
[2022-06-03] MEDS ORDERED: MONTELUKAST 10 MG TAB PO SCH (09:00)
[2022-06-03] MEDS ORDERED: ARIPiprazole 10 MG TAB PO SCH (09:00)
[2022-06-03] MEDS ORDERED: LORATADINE 10 MG TAB PO SCH (09:00)
[2022-06-03 09:05] VITALS: BP 110/69; PULSE 71; TEMP 97.6
[2022-06-03] MEDS: SODIUM CHLORIDE 0.9% 1,000 ML IV SCH (11:33)
[2022-06-03] MEDS ORDERED: levETIRAcetam IV 1,000 MG in SALINE 1 100ML.BAG IVPB STA (12:34)
[2022-06-03] MEDS ORDERED: levETIRAcetam 500 MG TAB PO STA (12:41)
--- NOTE | 2022-06-03 12:53 | P.HPIM ---
History of Present Illness 32-year-old male with known history of seizure disorder came in for breakthrough the patient states he does state On regular basis. Patient was recently hospitalized after which patient was supposed to go on Keppra 1000 twice a day but left AMA and has been taking only 750 twice a day of Keppra. Patient was evaluated by neurology patient seizure-free since last night is being given additional family milligrams of Keppra today after that patient will be discharged. REVIEW OF SYSTEMS: CONSTITUTIONAL: No fever, no malaise, no fatigue. HEENT: No recent visual problems or hearing problems. Denied any sore throat. CARDIOVASCULAR: No chest pain, orthopnea, PND, no palpitations, no syncope. PULMONARY: No shortness of breath, no cough, no hemoptysis. GASTROINTESTINAL: No diarrhea, no nausea, no vomiting, no abdominal pain. NEUROLOGICAL: No headaches, no weakness, no numbness. HEMATOLOGICAL: Denies any bleeding or petechiae. GENITOURINARY: Denies any burning micturition, frequency, or urgency. MUSCULOSKELETAL/RHEUMATOLOGICAL: Denies any joint pain, swelling, or any muscle pain. ENDOCRINE: Denies any polyuria or polydipsia. The rest of the 14-point review of systems is negative. PHYSICAL EXAMINATION: GENERAL: The patient is alert and oriented x3, not in any acute distress. Well developed, well nourished. Obese HEENT: Pupils are round and equally reacting to light. EOMI. No scleral icterus. No conjunctival pallor. Normocephalic, atraumatic. No pharyngeal erythema. No thyromegaly. CARDIOVASCULAR: S1 and S2 present. No murmurs, rubs, or gallops. PULMONARY: Chest is clear to auscultation, no wheezing or crackles. ABDOMEN: Soft, nontender, nondistended, normoactive bowel sounds. No palpable organomegaly. MUSCULOSKELETAL: No joint swelling or deformity. EXTREMITIES: No cyanosis, clubbing, or pedal edema. NEUROLOGICAL: Gross neurological examination did not reveal any focal deficits. SKIN: No rashes. 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 Date of last positivie culture/infection: 2005 MDRO Source:: leg Past Surgical History: Hernia Repair Additional Past Surgical History / Comment(s): forehead reconstruction for head lac as child Past Anesthesia/Blood Transfusion Reactions: No Reported Reaction Past Psychological History: Bipolar, Depression, PTSD, Schizoaffective Disorder Smoking Status: Former smoker Past Alcohol Use History: Abuse, Daily Additional Past Alcohol Use History / Comment(s): QUIT SMOKING/DRINKING 02/2020 Past Drug Use History: Marijuana Additional Drug Use History / Comment(s): USES CBD FOR PAIN - Past Family History Father Family Medical History: Cancer Additional Family Medical History / Comment(s): ADOPTED-NOT TOTALLY SURE OF HHX Mother Family Medical History: Cancer Additional Family Medical History / Comment(s): ADOPTED-NOT TOTALLY SURE OF HHX Medications and Allergies Home Medications Medication Instructions Recorded Confirmed Type Loratadine [Claritin] 10 mg PO DAILY 01/28/18 06/02/22 History Montelukast [Singulair] 10 mg PO DAILY 01/28/18 06/02/22 History ARIPiprazole [Abilify] 10 mg PO DAILY 04/28/20 06/02/22 History Albuterol Nebulized [Ventolin 2.5 mg INHALATION RT-Q6H PRN 07/25/20 06/02/22 H istory Nebulized] Albuterol Sulfate [Proair Hfa] 2 puff INHALATION RT-QID PRN 07/25/20 06/02/22 History Cholecalciferol (Vitamin D3) 125 mcg PO DAILY 07/25/20 06/02/22 History [Vitamin D3 (5000 Iu)] Fluticasone Propion/Salmeterol 2 puff INHALATION RT-BID 07/25/20 06/02/22 History [Advair Hfa 230-21 Mcg Inhaler] Meclizine HCl 25 mg PO TID PRN 07/25/20 06/02/22 History Naproxen [Naprosyn] 500 mg PO Q12HR PRN 07/25/20 06/02/22 History Simethicone Chew [Mylicon Chew] 80 mg PO ACHS PRN 07/25/20 06/02/22 History Valtoco 10 Mg/[place] 1 spray NASAL DIRECTED PRN 02/24/22 06/02/22 History levETIRAcetam [Keppra] 1,000 mg PO Q12HR #60 tab 06/03/22 Rx Allergies Allergy/AdvReac Type Severity Reaction Status Date / Time diphenhydramine Allergy Confusion Verified 06/02/22 21:37 [From Benadryl] Sulfa (Sulfonamide Allergy Swelling Verified 06/02/22 21:37 Antibiotics) sulfamethoxazole Allergy Swelling Verified 06/02/22 21:37 [From Bactrim] trimethoprim [From Bactrim] Allergy Swelling Verified 06/02/22 21:37 Physical Exam Vitals: Vital Signs Temp Pulse Pulse Resp BP BP BP 06/03/22 10:19 06/03/22 07:00 97.6 F 71 16 110/69 06/03/22 03:53 74 16 06/03/22 03:29 97.5 F L 74 16 115/77 06/03/22 01:00 77 16 123/85 06/03/22 00:00 80 16 132/89 06/02/22 22:00 92 11 L 126/89 06/02/22 21:50 90 17 126/89 06/02/22 21:40 82 13 126/89 06/02/22 21:30 85 13 126/89 06/02/22 21:20 84 13 126/89 06/02/22 21:10 85 16 126/89 06/02/22 21:00 84 15 128/92 06/02/22 20:55 84 15 136/91 06/02/22 20:40 89 14 06/02/22 20:30 86 12 123/87 06/02/22 20:16 135/102 06/02/22 20:10 135/102 06/02/22 20:04 97.9 F 79 12 141/94 Pulse Ox 06/03/22 10:19 97 06/03/22 07:00 98 06/03/22 03:53 06/03/22 03:29 96 06/03/22 01:00 94 L 06/03/22 00:00 95 06/02/22 22:00 94 L 06/02/22 21:50 94 L 06/02/22 21:40 94 L 06/02/22 21:30 92 L 06/02/22 21:20 93 L 06/02/22 21:10 93 L 06/02/22 21:00 93 L 06/02/22 20:55 91 L 06/02/22 20:40 96 06/02/22 20:30 98 06/02/22 20:16 06/02/22 20:10 06/02/22 20:04 100 Intake and Output 06/02/22 06/03/22 06/03/22 22:59 06:59 14:59 Intake Total 0 Balance 0 Intake: Oral 0 Other: Voiding Method Urinal Urinal # Voids 0 Weight 151.092 kg 151.092 kg Results CBC & Chem 7: 06/03/22 05:25 06/03/22 05:25 Labs: Abnormal Lab Results - Last 24 Hours (Table) 06/02/22 06/02/22 06/03/22 Range/Units 20:07 22:58 05:25 Chloride 109 H (98-107) mmol/L Glucose 107 H (74-99) mg/dL ALT 101 H 96 H (4-49) U/L U Benzodiazepines Scrn Detected H (NotDetected) Thrombosis Risk Factor Assmnt - Choose All That Apply Each Factor Represents 1 point: Obesity (BMI >25) Thrombosis Risk Factor Assessment Total Risk Factor Score: 1 Thrombosis Risk Factor Assessment Level: Low Risk
--- NOTE | 2022-06-03 12:54 | P.DS ---
Providers Date of admission: 06/02/22 22:05 Attending physician: Giselle Newton Consults: 06/02/22 21:58 Consult Physician Urgent Consulting Provider: Yodit Hillman Consult Reason/Comments: seizure disorder Do you want consulting provider notified?: Yes Primary care physician: [facility] Course: Refer to HPI for further details Patient Condition at Discharge: Stable Plan - Discharge Summary New Discharge Prescriptions: New levETIRAcetam [Keppra] 1,000 mg PO Q12HR #60 tab Discontinued levETIRAcetam [Keppra] 750 mg PO Q12H No Action Montelukast [Singulair] 10 mg PO DAILY Loratadine [Claritin] 10 mg PO DAILY ARIPiprazole [Abilify] 10 mg PO DAILY Fluticasone Propion/Salmeterol [Advair Hfa 230-21 Mcg Inhaler] 2 puff INHALATION RT-BID Naproxen [Naprosyn] 500 mg PO Q12HR PRN PRN Reason: Pain Albuterol Sulfate [Proair Hfa] 2 puff INHALATION RT-QID PRN PRN Reason: Shortness Of Breath Albuterol Nebulized [Ventolin Nebulized] 2.5 mg INHALATION RT-Q6H PRN PRN Reason: Shortness Of Breath Simethicone Chew [Mylicon Chew] 80 mg PO ACHS PRN PRN Reason: Gi Upset Meclizine HCl 25 mg PO TID PRN PRN Reason: Vertigo Cholecalciferol (Vitamin D3) [Vitamin D3 (5000 Iu)] 125 mcg PO DAILY Valtoco 10 Mg/[place] 1 spray NASAL DIRECTED PRN PRN Reason: Seizures Discharge Medication List Loratadine [Claritin] 10 mg PO DAILY 01/28/18 [History] Montelukast [Singulair] 10 mg PO DAILY 01/28/18 [History] ARIPiprazole [Abilify] 10 mg PO DAILY 04/28/20 [History] Albuterol Nebulized [Ventolin Nebulized] 2.5 mg INHALATION RT-Q6H PRN 07/25/20 [History] Albuterol Sulfate [Proair Hfa] 2 puff INHALATION RT-QID PRN 07/25/20 [History] Cholecalciferol (Vitamin D3) [Vitamin D3 (5000 Iu)] 125 mcg PO DAILY 07/25/20 [History] Fluticasone Propion/Salmeterol [Advair Hfa 230-21 Mcg Inhaler] 2 puff INHALATION RT-BID 07/25/20 [History] Meclizine HCl 25 mg PO TID PRN 07/25/20 [History] Naproxen [Naprosyn] 500 mg PO Q12HR PRN 07/25/20 [History] Simethicone Chew [Mylicon Chew] 80 mg PO ACHS PRN 07/25/20 [History] Valtoco 10 Mg/[place] 1 spray NASAL DIRECTED PRN 02/24/22 [History] levETIRAcetam [Keppra] 1,000 mg PO Q12HR #60 tab 06/03/22 [Rx] Follow up Appointment(s)/Referral(s): Marycarmen Gaston MD [Primary Care Provider] - 3 Days Patient Instructions/Handouts: Seizure/Epilepsy Discharge Instructions & Follow-Up Discharge Disposition: HOME SELF-CARE
[2022-06-03] MEDS ORDERED: SYMBICORT 160-4.5 MCG INHALER INHALATION SCH (20:00)
[2022-06-03] MEDS ORDERED: levETIRAcetam 500 MG TAB PO SCH (21:00)
--- NOTE | 2022-06-10 17:25 | P.CNNES ---
History of Present Illness Consult date: 06/03/22 Requesting physician: Adalberto Olmstead Reason for Consult: Seizure disorder History of Present Illness: Patient is a 32-year-old male with history of seizure disorder since 2015, came to the hospital by ambulance yesterday at 8 PM for breakthrough seizure. Patient's buddies were also present. Patient denies any alcoholism, or any drug use. He states that he has history of seizure disorder since 2016. He has only tried Keppra which was started last year. He he also tried CBD in the past. Patient was recently admitted to the hospital on 05/10/2022, when he was seen by Dr. Fadi Martinez. His dose of Keppra was 750 mg twice a day prior to that admission. Dr. Martinez had recommended to increase dose of Keppra to 1000 mg twice a day. However he signed out AGAINST MEDICAL ADVICE at that time and therefore he continued on Keppra 750 mg twice a day. Now patient came with breakthrough seizures. As per EMS flow sheet, when they arrived on the scene, patient was unresponsive in the chair. Friends on the scene stated that patient had 2 seizures lasting approximately 2-3 minutes apiece. Patient was unresponsive to painful stimuli at that time. Patient began to seize in front of the EMS and he was given 10 mg of Versed IM. Seizure lasted approximately 90 seconds before stopping. Patient was placed on high flow oxygen via nonrebreather and EKG showed sinus rhythm. No report of recent trauma. Patient was just sitting in the chair when he had the seizures started. Patient's blood pressure was 164/107, pulse rate 77 respirations 16 saturation 100 %, blood sugar 182. Patient's blood tests shows normal CBC, CMP with mildly elevated ALT 101, urine drug screen positive for benzodiazepine (received Versed by the EMS). Blood alcohol level negative. Patient follows up at [facility] and follows up with Dr. Yamilex Mariano. Review of Systems Constitutional: Denies chills, Denies fever Eyes: denies blurred vision, denies pain Ears, nose, mouth and throat: Denies headache, Denies sore throat Cardiovascular: Denies chest pain, Denies shortness of breath Respiratory: Denies cough Gastrointestinal: Denies abdominal pain, Denies diarrhea, Denies nausea, Denies vomiting 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 Date of last positivie culture/infection: 2005 MDRO Source:: leg Past Surgical History: Hernia Repair Additional Past Surgical History / Comment(s): forehead reconstruction for head lac as child Past Anesthesia/Blood Transfusion Reactions: No Reported Reaction Past Psychological History: Bipolar, Depression, PTSD, Schizoaffective Disorder Smoking Status: Former smoker Past Alcohol Use History: Abuse, Daily Additional Past Alcohol Use History / Comment(s): QUIT SMOKING/DRINKING 02/2020 Past Drug Use History: Marijuana Additional Drug Use History / Comment(s): USES CBD FOR PAIN - Past Family History Father Family Medical History: Cancer Additional Family Medical History / Comment(s): ADOPTED-NOT TOTALLY SURE OF HHX Mother Family Medical History: Cancer Additional Family Medical History / Comment(s): ADOPTED-NOT TOTALLY SURE OF HHX Medications and Allergies Home Medications Medication Instructions Recorded Confirmed Type Loratadine [Claritin] 10 mg PO DAILY 01/28/18 06/02/22 History Montelukast [Singulair] 10 mg PO DAILY 01/28/18 06/02/22 History ARIPiprazole [Abilify] 10 mg PO DAILY 04/28/20 06/02/22 History Albuterol Nebulized [Ventolin 2.5 mg INHALATION RT-Q6H PRN 07/25/20 06/02/22 History Nebulized] Albuterol Sulfate [Proair Hfa] 2 puff INHALATION RT-QID PRN 07/25/20 06/02/22 History Cholecalciferol (Vitamin D3) 125 mcg PO DAILY 07/25/20 06/02/22 History [Vitamin D3 (5000 Iu)] Fluticasone Propion/Salmeterol 2 puff INHALATION RT-BID 07/25/20 06/02/22 History [Advair Hfa 230-21 Mcg Inhaler] Meclizine HCl 25 mg PO TID PRN 07/25/20 06/02/22 History Naproxen [Naprosyn] 500 mg PO Q12HR PRN 07/25/20 06/02/22 History Simethicone Chew [Mylicon Chew] 80 mg PO ACHS PRN 07/25/20 06/02/22 History Valtoco 10 Mg/[place] 1 spray NASAL DIRECTED PRN 02/24/22 06/02/22 History levETIRAcetam [Keppra] 1,000 mg PO Q12HR #60 tab 06/03/22 Rx Allergies Allergy/AdvReac Type Severity Reaction Status Date / Time diphenhydramine Allergy Confusion Verified 06/02/22 21:37 [From Benadryl] Sulfa (Sulfonamide Allergy Swelling Verified 06/02/22 21:37 Antibiotics) sulfamethoxazole Allergy Swelling Verified 06/02/22 21:37 [From Bactrim] trimethoprim [From Bactrim] Allergy Swelling Verified 06/02/22 21:37 Physical Examination - Vital Signs Vital Signs: Vital Signs Temp Pulse Pulse Resp BP BP BP 06/03/22 10:19 06/03/22 07:00 97.6 F 71 16 110/69 06/03/22 03:53 74 16 06/03/22 03:29 97.5 F L 74 16 115/77 06/03/22 01:00 77 16 123/85 06/03/22 00:00 80 16 132/89 06/02/22 22:00 92 11 L 126/89 06/02/22 21:50 90 17 126/89 06/02/22 21:40 82 13 126/89 06/02/22 21:30 85 13 126/89 06/02/22 21:20 84 13 126/89 06/02/22 21:10 85 16 126/89 06/02/22 21:00 84 15 128/92 06/02/22 20:55 84 15 136/91 06/02/22 20:40 89 14 06/02/22 20:30 86 12 123/87 06/02/22 20:16 135/102 06/02/22 20:10 135/102 06/02/22 20:04 97.9 F 79 12 141/94 Pulse Ox 06/03/22 10:19 97 06/03/22 07:00 98 06/03/22 03:53 06/03/22 03:29 96 06/03/22 01:00 94 L 06/03/22 00:00 95 06/02/22 22:00 94 L 06/02/22 21:50 94 L 06/02/22 21:40 94 L 06/02/22 21:30 92 L 06/02/22 21:20 93 L 06/02/22 21:10 93 L 06/02/22 21:00 93 L 06/02/22 20:55 91 L 06/02/22 20:40 96 06/02/22 20:30 98 06/02/22 20:16 06/02/22 20:10 06/02/22 20:04 100 Intake and Output 06/02/22 06/03/22 06/03/22 22:59 06:59 14:59 Intake Total 0 Balance 0 Intake: Oral 0 Other: Voiding Method Urinal Urinal # Voids 0 Weight 151.092 kg 151.092 kg Patient is a young male, in no distress. Patient is alert awake oriented to time place and person. Speech and language functions are normal. Patient can name and repeat very well. No aphasia or dysarthria. Attention, concentration and fund of knowledge is adequate. On cranial nerve examination, pupils are equal, round and reacting to light, visual [place] are full on confrontation, with no neglect on double simultaneous stimulation. Extraocular muscles are intact with no nystagmus. Face is symmetric, tongue protrudes to the midline. Palatal elevation and sensation normal, hearing and shoulder shrug normal, facial sensation normal. On muscle strength testing, there is no pronator drift and the strength is normal in arms and legs distally and proximally. Deep tendon reflexes are symmetric, however hypoactive and plantars are downgoing bilaterally. Sensory to touch is equal with no neglect on double simultaneous stimulation. Cerebellar function showed no ataxia for [id number] testing. No dysdiadochokinesia. No ataxia for [id number] testing on either side. Tone and bulk of muscles normal. Gait deferred.. On general examination, there is no carotid bruit or murmur, S1-S2 audible. Chest is clear on consultation. Abdomen is soft nontender. No organomegaly, bowel sounds present. Peripheral pulses are present. No edema. Results - Laboratory Findings CBC and BMP: 06/03/22 05:25 06/03/22 05:25 Abnormal Lab Findings: Abnormal Labs 06/02/22 06/02/22 06/03/22 20:07 22:58 05:25 Chloride 109 H Glucose 107 H ALT 101 H 96 H U Benzodiazepines Scrn Detected H Assessment and Plan Assessment: * Seizure disorder, came with breakthrough seizure. Plan: * Increase Keppra to 1000 mg twice a day (from his home dose of Keppra 750 mg twice a day). Patient will receive an extra 500 mg tablet of Keppra prior to discharge. * Recommended patient to follow up with his neurologist in 1-2 weeks. * Patient had an EEG performed 05/10/2022, which is normal. The patient's event captured is not epileptic in nature. No epileptiform activity was seen. * Patient informed of [place] state law of no driving unless seizure free for 6 months, climbing ladders, operating dangerous machinery or unsupervised swimming. * Neurologically clear for discharge. Discussed with primary physician.
== END 2022-06-03 14:00 | disposition home or self-care (01) ==
LOC: EC 20:00 → 3SCARD 22:05 → 6NMEDSUR 06-03 02:08
PROVIDERS: ADMIT Internal Medicine; ATTEND Internal Medicine
DX: G40.909 Epilepsy, unspecified, not intractable, without status epilepticus (principal); J45.909 Unspecified asthma, uncomplicated; K76.9 Liver disease, unspecified; F43.10 Post-traumatic stress disorder, unspecified; G43.809 Other migraine, not intractable, without status migrainosus; Z86.14 Personal history of Methicillin resistant Staphylococcus aureus infection; F31.9 Bipolar disorder, unspecified; F20.9 Schizophrenia, unspecified; F17.200 Nicotine dependence, unspecified, uncomplicated; Z80.9 Family history of malignant neoplasm, unspecified; Z79.51 Long term (current) use of inhaled steroids; Z79.899 Other long term (current) drug therapy; Z88.2 Allergy status to sulfonamides; Z88.8 Allergy status to other drugs, medicaments and biological substances
CPT/HCPCS: 96360; 99285; 36415; 94760; 93005; 80053 ×2; 80177; 83735; 85025 ×2; 84146; 80306; 70450; G0378 ×3; G0480; 80320

== ENCOUNTER 2022-06-13 19:18 | Emergency (ER) | payer OTHER ==
[2022-06-13 19:32] VITALS: BP 126/85; PULSE 99; RESP 16; TEMP 98.4
--- NOTE | 2022-06-13 20:01 | ED ---
Lower Extremity Injury HPI - General Chief Complaint: Extremity Injury, Lower Stated Complaint: FOOT INJURY Time Seen by Provider: 06/13/22 19:33 Source: patient, RN notes reviewed Mode of arrival: wheelchair Limitations: no limitations - History of Present Illness Initial Comments: This is a 32-year-old male who presents to the emergency department for a left foot injury. Patient states that approximately 30 minutes prior to arrival, a large slab of concrete fell onto his left foot. His left foot currently feels numb, and he states that he is unable to move his toes. Denies sustaining any other injuries. Denies any fevers, chills, sore throat, cough, dyspnea, chest pain, palpitations, abdominal pain, nausea, vomiting, diarrhea, back pain, or headaches. MD Complaint: foot injury Injury: Foot: Left - Related Data Home Medications Medication Instructions Recorded Confirmed Loratadine [Claritin] 10 mg PO DAILY 01/28/18 06/02/22 Montelukast [Singulair] 10 mg PO DAILY 01/28/18 06/02/22 ARIPiprazole [Abilify] 10 mg PO DAILY 04/28/20 06/02/22 Albuterol Nebulized [Ventolin 2.5 mg INHALATION RT-Q6H PRN 07/25/20 06/02/22 Nebulized] Albuterol Sulfate [Proair Hfa] 2 puff INHALATION RT-QID PRN 07/25/20 06/02/22 Cholecalciferol (Vitamin D3) 125 mcg PO DAILY 07/25/20 06/02/22 [Vitamin D3 (5000 Iu)] Fluticasone Propion/Salmeterol 2 puff INHALATION RT-BID 07/25/20 06/02/22 [Advair Hfa 230-21 Mcg Inhaler] Meclizine HCl 25 mg PO TID PRN 07/25/20 06/02/22 Naproxen [Naprosyn] 500 mg PO Q12HR PRN 07/25/20 06/02/22 Simethicone Chew [Mylicon Chew] 80 mg PO ACHS PRN 07/25/20 06/02/22 Valtoco 10 Mg/[place] 1 spray NASAL DIRECTED PRN 02/24/22 06/02/22 Previous Rx's Medication Instructions Recorded levETIRAcetam [Keppra] 1,000 mg PO Q12HR #60 tab 06/03/22 Allergies Allergy/AdvReac Type Severity Reaction Status Date / Time diphenhydramine Allergy Confusion Verified 06/13/22 19:32 [From Benadryl] Sulfa (Sulfonamide Allergy Swelling Verified 06/13/22 19:32 Antibiotics) sulfamethoxazole Allergy Swelling Verified 06/13/22 19:32 [From Bactrim] trimethoprim [From Bactrim] Allergy Swelling Verified 06/13/22 19:32 Review of Systems ROS Statement: Those systems with pertinent positive or pertinent negative responses have been documented in the HPI. ROS Other: All systems not noted in ROS Statement are negative. 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 Date of last positivie culture/infection: 2005 MDRO Source:: leg Past Surgical History: Hernia Repair Additional Past Surgical History / Comment(s): forehead reconstruction for head lac as child Past Anesthesia/Blood Transfusion Reactions: No Reported Reaction Past Psychological History: Bipolar, Depression, PTSD, Schizoaffective Disorder Smoking Status: Former smoker Past Alcohol Use History: Abuse, Daily Past Drug Use History: Marijuana - Past Family History Father Family Medical History: Cancer Additional Family Medical History / Comment(s): ADOPTED-NOT TOTALLY SURE OF HHX Mother Family Medical History: Cancer Additional Family Medical History / Comment(s): ADOPTED-NOT TOTALLY SURE OF HHX General Exam Limitations: no limitations General appearance: alert, in no apparent distress Head exam: Present: atraumatic, normocephalic, normal inspection Respiratory exam: Present: normal lung sounds bilaterally. Absent: respiratory distress, wheezes, rales, rhonchi, stridor Cardiovascular Exam: Present: regular rate, normal rhythm, normal heart sounds. Absent: systolic murmur, diastolic murmur, rubs, gallop, clicks Extremities exam: Present: other (No swelling, ecchymosis, or tenderness to the dorsal aspect of the left foot. 2+ DP and TP pulses. Capillary refill less than 1 second.) Neurological exam: Present: alert, oriented X3, CN II-XII intact Psychiatric exam: Present: normal affect, normal mood Skin exam: Present: warm, dry, intact, normal color. Absent: rash Course Vital Signs 06/13/22 19:28 Temperature 98.4 F Pulse Rate 99 Respiratory 16 Rate Blood Pressure 126/85 O2 Sat by Pulse 97 Oximetry Medical Decision Making - Medical Decision Making This is a 32-year-old male who presents to the emergency department for a left foot injury. Was pt. sent in by a medical professional or institution? @ -No Did you speak to anyone other than the patient for history? @ -No Did you review nursing and triage notes? @ -Yes, and I agree, it is accurate with regards to the patient's symptoms. Were old charts reviewed? @ -No Differential Diagnosis? @ -Differential Foot Injury: Fracture, dislocation, contusion, sprain, this is not meant to be an all- inclusive list. X-rays interpreted by me (1pt min.)? @ -X-ray of the left foot obtained. My interpretation identifies no acute fractures or dislocations. What testing was considered but not performed? (CT, X-rays, U/S, labs)? Why? @ -None What meds were considered but not given? Why? @ -None Did you discuss the management of the patient with other professionals? @ -No Did you reconcile home meds? @ -No Was smoking cessation discussed for >3mins.? @ -No Was critical care preformed (if so, how long)? @ -No Were there social determinants of health that impacted care today? How? (Homelessness, low income, unemployed, alcoholism, drug addiction, transportation, low edu. Level, literacy, decrease access to med. care, skilled nursing, rehab)? @ -No Was there de-escalation of care discussed even if they declined? (Discuss DNR or withdrawal of care, Hospice)? @ -No What co-morbidities impacted this encounter? (DM, HTN, Smoking, COPD, CAD, Cancer, CVA, Hep., AIDS, mental health diagnosis, sleep apnea, morbid obesity)? @ -None Was patient admitted / discharged? @ -Discharged. X-ray of the left foot obtained revealing no acute findings. Patient declined the need for any pain medication at this time. He was given an ankle stirrup splint per his request. Advised ibuprofen and Tylenol as needed for pain relief, keeping the foot elevated, and applying ice to the affected areas for 15-20 minutes every 2-3 hours. Undiagnosed new problem with uncertain prognosis? @ -None Drug Therapy requiring intensive monitoring for toxicity (Heparin, Nitro, Insulin, Cardizem)? @ -None Were any procedures done? @ -None Diagnosis/symptom? @ -Left foot contusion Acute, or Chronic, or Acute on Chronic? @ -Acute Uncomplicated (without systemic symptoms) or Complicated (systemic symptoms)? @ -Uncomplicated Side effects of treatment? @ -None Exacerbation, Progression, or Severe Exacerbation] @ -Not applicable Poses a threat to life or bodily function? @ -No Return precautions reviewed in depth, the patient is instructed to return to the emergency department with any new, worsening, or concerning symptoms. Patient verbalized understanding. This case was discussed in detail with the attending ED physician, Dr. Mg. Presentation, findings, and treatment plan discussed in detail as well. - Radiology Data Radiology results: report reviewed, image reviewed Disposition Clinical Impression: Contusion of left foot Disposition: HOME SELF-CARE Instructions (If sedation given, give patient instructions): Foot Contusion (ED), Ankle Stirrup Splint (ED) Additional Instructions: Return to the emergency department with any new, worsening, or concerning symptoms. Alternate with ibuprofen and Tylenol as needed for pain relief. Apply ice for 15-20 minutes every 2-3 hours and keep the foot elevated. Use the stirrup splint as needed. Follow up with your primary care provider in 1-2 days. Is patient prescribed a controlled substance at d/c from ED?: No Referrals: None,Stated [Primary Care Provider] - 1-2 days
--- NOTE | 2022-06-13 20:11 | XR ---
EXAMINATION TYPE: XR foot complete LT DATE OF EXAM: 06/13/2022 8:05 PM INDICATION: Patient age:Male; 32 years old; Reason for study: [place] fell on foot. COMPARISON: None TECHNIQUE: The left foot was examined in the AP, oblique, and lateral projections. FINDINGS: No evidence of any acute osseous pathology. No evidence of soft tissue swelling. Joints are preserve d. Accessory ossicle next to the navicular bone. IMPRESSION: No evidence of acute fracture.
== END 2022-06-13 20:45 | disposition home or self-care (01) ==
LOC: EC 19:18
DX: S90.32XA Contusion of left foot, initial encounter (principal); J45.909 Unspecified asthma, uncomplicated; F31.9 Bipolar disorder, unspecified; F12.90 Cannabis use, unspecified, uncomplicated; Z87.891 Personal history of nicotine dependence; Z79.899 Other long term (current) drug therapy; Z88.2 Allergy status to sulfonamides; Z88.8 Allergy status to other drugs, medicaments and biological substances; Z79.51 Long term (current) use of inhaled steroids; W20.8XXA Other cause of strike by thrown, projected or falling object, initial encounter
CPT/HCPCS: 99283

== ENCOUNTER 2022-06-21 15:12 | Emergency (ER) | payer OTHER ==
[2022-06-21 15:42] VITALS: TEMP 98.7
--- NOTE | 2022-06-21 16:54 | XR ---
EXAMINATION TYPE: XR chest 2V DATE OF EXAM: 06/21/2022 COMPARISON: 05/09/2022 HISTORY: Chest pain TECHNIQUE: Frontal and lateral views of the chest are obtained. FINDINGS: Mild increased density at the lung bases may reflect atelectasis or developing infiltrate. No evidence for pneumothorax. No pleural effusion. The cardiac silhouette size is within normal limits. The osseous structures are grossly intact. IMPRESSION: 1. Mild increased density at the lung bases may reflect atelectasis or developing infiltrate.
[2022-06-21] MEDS ORDERED: AZITHROMYCIN 500 MG TAB PO STA (16:59)
--- NOTE | 2022-06-21 18:19 | ED ---
URI HPI - General Chief Complaint: Upper Respiratory Infection Stated Complaint: Cough Time Seen by Provider: 06/21/22 16:33 Source: patient Mode of arrival: ambulatory Limitations: no limitations - History of Present Illness Initial Comments: Patient is a 32-year-old male who presents to the emergency department for evaluation of cough. Patient reports productive cough for the past 2 days with yellow and brown phlegm. Patient also has runny nose he denies any chest pain or shortness of breath. No fever or chills. No nausea or vomiting. Patient does have history of asthma he has occasional asthma exacerbations. - Related Data Home Medications Medication Instructions Recorded Confirmed Loratadine [Claritin] 10 mg PO DAILY 01/28/18 06/02/22 Montelukast [Singulair] 10 mg PO DAILY 01/28/18 06/02/22 ARIPiprazole [Abilify] 10 mg PO DAILY 04/28/20 06/02/22 Albuterol Nebulized [Ventolin 2.5 mg INHALATION RT-Q6H PRN 07/25/20 06/02/22 Nebulized] Albuterol Sulfate [Proair Hfa] 2 puff INHALATION RT-QID PRN 07/25/20 06/02/22 Cholecalciferol (Vitamin D3) 125 mcg PO DAILY 07/25/20 06/02/22 [Vitamin D3 (5000 Iu)] Fluticasone Propion/Salmeterol 2 puff INHALATION RT-BID 07/25/20 06/02/22 [Advair Hfa 230-21 Mcg Inhaler] Meclizine HCl 25 mg PO TID PRN 07/25/20 06/02/22 Naproxen [Naprosyn] 500 mg PO Q12HR PRN 07/25/20 06/02/22 Simethicone Chew [Mylicon Chew] 80 mg PO ACHS PRN 07/25/20 06/02/22 Valtoco 10 Mg/[place] 1 spray NASAL DIRECTED PRN 02/24/22 06/02/22 Previous Rx's Medication Instructions Recorded levETIRAcetam [Keppra] 1,000 mg PO Q12HR #60 tab 06/03/22 Azithromycin [Zithromax] 250 mg PO DIRECTED #9 tab 06/21/22 Allergies Allergy/AdvReac Type Severity Reaction Status Date / Time diphenhydramine Allergy Confusion Verified 06/21/22 15:42 [From Benadryl] Sulfa (Sulfonamide Allergy Swelling Verified 06/21/22 15:42 Antibiotics) sulfamethoxazole Allergy Swelling Verified 06/21/22 15:42 [From Bactrim] trimethoprim [From Bactrim] Allergy Swelling Verified 06/21/22 15:42 Review of Systems ROS Statement: Those systems with pertinent positive or pertinent negative responses have been documented in the HPI. ROS Other: All systems not noted in ROS Statement are negative. 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 Date of last positivie culture/infection: 2005 MDRO Source:: leg Past Surgical History: Hernia Repair Additional Past Surgical History / Comment(s): forehead reconstruction for head lac as child Past Anesthesia/Blood Transfusion Reactions: No Reported Reaction Past Psychological History: Bipolar, Depression, PTSD, Schizoaffective Disorder Smoking Status: Former smoker Past Alcohol Use History: Abuse, Daily Past Drug Use History: Marijuana - Past Family History Father Family Medical History: Cancer Additional Family Medical History / Comment(s): ADOPTED-NOT TOTALLY SURE OF HHX Mother Family Medical History: Cancer Additional Family Medical History / Comment(s): ADOPTED-NOT TOTALLY SURE OF HHX General Exam Limitations: no limitations General appearance: alert, in no apparent distress Head exam: Present: atraumatic, normocephalic, normal inspection Eye exam: Present: normal appearance, PERRL, EOMI. Absent: scleral icterus, conjunctival injection, periorbital swelling Respiratory exam: Present: normal lung sounds bilaterally. Absent: respiratory distress, wheezes, rales, rhonchi, stridor Cardiovascular Exam: Present: regular rate, normal rhythm, normal heart sounds. Absent: systolic murmur, diastolic murmur, rubs, gallop, clicks Neurological exam: Present: alert, oriented X3, CN II-XII intact Psychiatric exam: Present: normal affect, normal mood Skin exam: Present: warm, dry, intact, normal color. Absent: rash Course Vital Signs 04/13/23 04/13/23 15:38 18:30 Temperature 98.7 F Pulse Rate 98 91 Respiratory 16 18 Rate Blood Pressure 124/64 129/73 O2 Sat by Pulse 95 97 Oximetry Medical Decision Making - Medical Decision Making Was pt. sent in by a medical professional or institution (, AXEL, FLIGHT ATTENDANT RAMP, urgent care, hospital, or skilled nursing...) When possible be specific @ -No Did you speak to anyone other than the patient for history (EMS, parent, family, police, friend...)? What history was obtained from this source @ -No Did you review nursing and triage notes (agree or disagree)? Why? @ -I reviewed and agree with nursing and triage notes Were old charts reviewed (outside hosp., previous admission, EMS record, old EKG, old radiological studies, urgent care reports/EKG's, skilled nursing records)? Report findings @ -No old charts were reviewed Differential Diagnosis (chest pain, altered mental status, abdominal pain women, abdominal pain men, vaginal bleeding, weakness, fever, dyspnea, syncope, headache, dizziness, GI bleed, back pain, seizure, CVA, palpatations, mental health)? @ -URI, sinusitus,strep pharyngitis, viral pharyngitis, pneumonia, bronchitis- this list is not meant to be all-inclusive EKG interpreted by me (3pts min.). @ -As above X-rays interpreted by me (1pt min.). @ -Yes, chest x-ray shows mild increased density at the lung bases which may reflect developing infiltrate versus atelectasis CT interpreted by me (1pt min.). @ -None done U/S interpreted by me (1pt. min.). @ -None done What testing was considered but not performed or refused? (CT, X-rays, U/S, labs)? Why? @ -None What meds were considered but not given or refused? Why? @ -None Did you discuss the management of the patient with other professionals (tanner vera i.e. , AXEL, FLIGHT ATTENDANT RAMP, lab, RT, psych nurse, social work msw, volunteer services coordinator, teacher, tax compliance officer, case checker)? Give summary @ -No Was smoking cessation discussed for >3mins.? @ -No Was critical care preformed (if so, how long)? @ -No Were there social determinants of health that impacted care today? How? (Homelessness, low income, unemployed, alcoholism, drug addiction, transportation, low edu. Level, literacy, decrease access to med. care, correction, rehab)? @ -No Was there de-escalation of care discussed even if they declined (Discuss DNR or withdrawal of care, Hospice)? DNR status @ -No What co-morbidities impacted this encounter? (DM, HTN, Smoking, COPD, CAD, Cancer, CVA, ARF, Chemo, Hep., AIDS, mental health diagnosis, sleep apnea, morbid obesity)? @ -None Was patient admitted / discharged? Hospital course, mention meds given and route, prescriptions, significant lab abnormalities, going to OR and other pertinent info. @ -Patient presenting for productive cough. Afebrile. No abnormal lung sounds. Chest x-ray shows mild increased density at the lung bases which may reflect atelectasis versus developing infiltrate. Given patient's history of productive cough will treat for early pneumonia. Patient will be discharged with azithromycin. We discussed return parameters. Undiagnosed new problem with uncertain prognosis? @ -No Drug Therapy requiring intensive monitoring for toxicity (Heparin, Nitro, Insulin, Cardizem)? @ -No Were any procedures done? @ -No Diagnosis/symptom? @ -pneumonia Acute, or Chronic, or Acute on Chronic? @ acute Uncomplicated (without systemic symptoms) or Complicated (systemic symptoms)? @ -uncomplicated Side effects of treatment? @ -No Exacerbation, Progression, or Severe Exacerbation? @ -No Poses a threat to life or bodily function? How? (Chest pain, [place], [place], pneumonia, PE, COPD, DKA, ARF, appy, cholecystitis, CVA, Diverticulitis, Homicidal, Suicidal, threat to staff... and all critical care pts) @ -No Dr. Jamison is my attending - Lab Data Lab Results 06/21/22 Range/Units 17:11 Influenza Type A (PCR) Not Detected (Not Detectd) Influenza Type B (PCR) Not Detected (Not Detectd) RSV (PCR) Not Detected (Not Detectd) SARS-CoV-2 (PCR) Not Detected (Not Detectd) Disposition Clinical Impression: Pneumonia Disposition: HOME SELF-CARE Condition: Good Instructions (If sedation given, give patient instructions): Bacterial Pneumonia (ED) Additional Instructions: Take antibiotic as directed. Follow-up with primary care provider in one to 2 days. Return to the emergency department if you experience new, concerning, or worsening symptoms. Prescriptions: Azithromycin [Zithromax] 250 mg PO DIRECTED #9 tab Is patient prescribed a controlled substance at d/c from ED?: No Referrals: Marycarmen Gaston MD [Primary Care Provider] - 1-2 days
[2022-06-21 18:32] VITALS: BP 129/73; PULSE 91; RESP 18
== END 2022-06-21 18:33 | disposition home or self-care (01) ==
LOC: EC 15:12
DX: J18.9 Pneumonia, unspecified organism (principal); J45.909 Unspecified asthma, uncomplicated; F41.9 Anxiety disorder, unspecified; F32.A Depression, unspecified; Z87.891 Personal history of nicotine dependence; F12.90 Cannabis use, unspecified, uncomplicated; Z88.2 Allergy status to sulfonamides; Z88.1 Allergy status to other antibiotic agents; Z79.51 Long term (current) use of inhaled steroids; Z20.822 Contact with and (suspected) exposure to COVID-19
CPT/HCPCS: 71046; 87636; 99283

== ENCOUNTER 2022-09-20 13:45 | Emergency (ER) | payer OTHER ==
[2022-09-20 13:57] VITALS: RESP 16; TEMP 97.9
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
[2022-09-20 15:31] VITALS: BP 130/64; PULSE 72
== END 2022-09-20 16:17 | disposition home or self-care (01) ==
LOC: EC 13:45
DX: S60.041A Contusion of right ring finger without damage to nail, initial encounter (principal); J45.909 Unspecified asthma, uncomplicated; F31.9 Bipolar disorder, unspecified; F12.90 Cannabis use, unspecified, uncomplicated; Z87.891 Personal history of nicotine dependence; Z79.899 Other long term (current) drug therapy; Z88.2 Allergy status to sulfonamides; Z88.8 Allergy status to other drugs, medicaments and biological substances; X58.XXXA Exposure to other specified factors, initial encounter
CPT/HCPCS: 99283

== ENCOUNTER 2022-10-08 22:58 | Emergency (ER) | payer OTHER ==
[2022-10-08 23:07] VITALS: RESP 16
[2022-10-09] MEDS ORDERED: MORPHINE SULFATE 4 MG/ML SYRINGE IVP STA (00:08)
[2022-10-09] MEDS ORDERED: levETIRAcetam IV 500 MG/5 ML VIAL IVP STA (00:10)
[2022-10-09 00:31] LABS: Basophils % (A) 0 %; Eosinophils # (A) 0.1 k/uL (0-0.7); Eosinophils % (A) 1 %; HCT 46.4 % (39.0-53.0); HGB 15.8 gm/dL (13.0-17.5); Lymphocytes # (A) 1.7 k/uL (1.0-4.8); Lymphocytes % (A) 15 %; MCH 29.3 pg (25.0-35.0); MCV 86.2 fL (80.0-100.0); Mean Platelet Volume 7.5; Monocytes % (A) 8 %; Neutrophils # (A) 8.7 k/uL (1.3-7.7); Neutrophils % (A) 75 %; Platelet Count 233 k/uL (150-450); RBC 5.39 m/uL (4.30-5.90); RDW 12.6 % (11.5-15.5); WBC 11.7 k/uL (3.8-10.6)
[2022-10-09 00:44] LABS: ALT 78 U/L (4-49); AST 56 U/L (17-59); African American GFR (CKD) 84 (>60 ml/min/1.73 sqM); Albumin 4.9 g/dL (3.5-5.0); Alkaline Phosphatase 85 U/L (38-126); Anion Gap 14 mmol/L; Blood Urea Nitrogen 14 mg/dL (9-20); Calcium 9.6 mg/dL (8.4-10.2); Carbon Dioxide 21 mmol/L (22-30); Chloride 103 mmol/L (98-107); Glucose 87 mg/dL (74-99); Non-African American GFR(CKD) 73 (>60 ml/min/1.73 sqM); Potassium 4.1 mmol/L (3.5-5.1); Sodium 138 mmol/L (137-145); Total Bilirubin 0.9 mg/dL (0.2-1.3); Total Protein 8.2 g/dL (6.3-8.2)
--- NOTE | 2022-10-09 00:49 | CT ---
EXAM: CT Head Without Intravenous Contrast CLINICAL HISTORY: ITS.REASON CT Reason: fall, head injury, seizure TECHNIQUE: Axial computed tomography images of the head/brain without intravenous contrast. CTDI is 45.2 mGy and DLP is 967.15 mGy-cm. This CT exam was performed using one or more of the following dose reduction techniques: automated exposure control, adjustment of the mA and/or kV according to patient size, and/or use of iterative reconstruction technique. COMPARISON: No relevant prior studies available. FINDINGS: No acute intracranial hemorrhage. No midline shift or mass effect. The territorial benjamin-white matter differentiation is maintained throughout. The ventricles and sulci are commensurate with age. The visualized orbits appear grossly unremarkable. The calvarium is intact. The visualized paranasal sinuses and mastoid air cells are grossly clear. IMPRESSION: No acute intracranial hemorrhage, midline shift, or mass effect. EXAM: CT Cervical Spine Without Intravenous Contrast CLINICAL HISTORY: ITS.REASON CT Reason: fall, head injury, seizure TECHNIQUE: Axial computed tomography images of the cervical spine without intravenous contrast. CTDI is 26.7 mGy and DLP is 967.15 mGy-cm. This CT exam was performed using one or more of the following dose reduction techniques: automated exposure control, adjustment of the mA and/or kV according to patient size, and/or use of iterative reconstruction technique. COMPARISON: No relevant prior studies available. FINDINGS: The vertebral body heights are maintained. The craniocervical junction is intact. The atlanto-dens interval is maintained. The dens is intact. There is no spondylolisthesis. The intervertebral disc spaces are preserved. There is no spinal canal or neural foraminal stenosis. The unenhanced neck soft tissues are grossly unremarkable. The visualized lung apices are grossly clear. IMPRESSION: No acute fracture or subluxation of the cervical spine.
--- NOTE | 2022-10-09 00:50 | XR ---
EXAM: XR Right Wrist Complete, 3 or More Views CLINICAL HISTORY: ITS.REASON XR Reason: fall, pain TECHNIQUE: Frontal, lateral and oblique views of the right wrist. COMPARISON: No relevant prior studies available. FINDINGS: Bones/joints: Unremarkable. No acute fracture. No dislocation. Soft tissues: Unremarkable. No radiopaque foreign body. IMPRESSION: Normal right wrist x-rays.
--- NOTE | 2022-10-09 01:20 | ED ---
Fall HPI - General Chief Complaint: Fall Stated Complaint: Seizure Time Seen by Provider: 10/08/22 23:20 Source: EMS Mode of arrival: EMS - History of Present Illness Initial Comments: 32-year-old male with past medical history of seizure disorder who presents to the emergency department reporting right wrist pain. States he was playing basketball earlier today. He accidentally fell on an outstretched right hand. He states that he hit his head and then had a seizure. Patient was brought into the hospital by EMS. It was reported the patient had an additional seizure whi le within the exam room. He does return to baseline. Denies any headaches or visual changes. Admits that he is prescribed to take Keppra 750 mg twice daily but does take both of his doses in the morning. He follows with Dr. Dukes's office. He denies any neck pain. He is right-hand dominant. No other alleviating, precipitating or modifying factors - Related Data Home Medications Medication Instructions Recorded Confirmed Loratadine [Claritin] 10 mg PO DAILY 01/28/18 06/02/22 Montelukast [Singulair] 10 mg PO DAILY 01/28/18 06/02/22 ARIPiprazole [Abilify] 10 mg PO DAILY 04/28/20 06/02/22 Albuterol Nebulized [Ventolin 2.5 mg INHALATION RT-Q6H PRN 07/25/20 06/02/22 Nebulized] Albuterol Sulfate [Proair Hfa] 2 puff INHALATION RT-QID PRN 07/25/20 06/02/22 Cholecalciferol (Vitamin D3) 125 mcg PO DAILY 07/25/20 06/02/22 [Vitamin D3 (5000 Iu)] Fluticasone Propion/Salmeterol 2 puff INHALATION RT-BID 07/25/20 06/02/22 [Advair Hfa 230-21 Mcg Inhaler] Meclizine HCl 25 mg PO TID PRN 07/25/20 06/02/22 Naproxen [Naprosyn] 500 mg PO Q12HR PRN 07/25/20 06/02/22 Simethicone Chew [Mylicon Chew] 80 mg PO ACHS PRN 07/25/20 06/02/22 Valtoco 10 Mg/[place] 1 spray NASAL DIRECTED PRN 02/24/22 06/02/22 Previous Rx's Medication Instructions Recorded levETIRAcetam [Keppra] 1,000 mg PO Q12HR #60 tab 06/03/22 Azithromycin [Zithromax] 250 mg PO DIRECTED #9 tab 06/21/22 Allergies Allergy/AdvReac Type Severity Reaction Status Date / Time diphenhydramine Allergy Confusion Verified 09/20/22 13:54 [From Benadryl] Sulfa (Sulfonamide Allergy Swelling Verified 09/20/22 13:54 Antibiotics) sulfamethoxazole Allergy Swelling Verified 09/20/22 13:54 [From Bactrim] trimethoprim [From Bactrim] Allergy Swelling Verified 09/20/22 13:54 Review of Systems ROS Statement: Those systems with pertinent positive or pertinent negative responses have been documented in the HPI. ROS Other: All systems not noted in ROS Statement are negative. 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 Date of last positivie culture/infection: 2005 MDRO Source:: leg Past Surgical History: Hernia Repair Additional Past Surgical History / Comment(s): forehead reconstruction for head lac as child Past Anesthesia/Blood Transfusion Reactions: No Reported Reaction Past Psychological History: Bipolar, Depression, PTSD, Schizoaffective Disorder Smoking Status: Former smoker Past Alcohol Use History: Occasional Past Drug Use History: Marijuana - Past Family History Father Family Medical History: Cancer Additional Family Medical History / Comment(s): ADOPTED-NOT TOTALLY SURE OF HHX Mother Family Medical History: Cancer Additional Family Medical History / Comment(s): ADOPTED-NOT TOTALLY SURE OF HHX General Exam Limitations: no limitations General appearance: alert, in no apparent distress Head exam: Present: atraumatic, normocephalic, normal inspection Eye exam: Present: normal appearance, PERRL, EOMI. Absent: scleral icterus, conjunctival injection, periorbital swelling ENT exam: Present: normal exam, mucous membranes moist Neck exam: Present: normal inspection. Absent: tenderness, meningismus, lymphadenopathy Respiratory exam: Present: normal lung sounds bilaterally. Absent: respiratory distress, wheezes, rales, rhonchi, stridor Cardiovascular Exam: Present: regular rate, normal rhythm, normal heart sounds. Absent: systolic murmur, diastolic murmur, rubs, gallop, clicks GI/Abdominal exam: Present: soft, normal bowel sounds. Absent: distended, tenderness, guarding, rebound, rigid Extremities exam: Present: tenderness (To palpation of the right wrist. No gross deformity. 2+ radial and ulnar pulses. No ecchymosis), normal capillary refill. Absent: pedal edema, joint swelling, calf tenderness Back exam: Present: normal inspection Neurological exam: Present: alert, oriented X3, CN II-XII intact Psychiatric exam: Present: normal affect, normal mood Skin exam: Present: warm, dry, intact, normal color. Absent: rash Course Vital Signs 10/08/22 10/09/22 23:01 01:35 Temperature 98.5 F 98.3 F Pulse Rate 99 85 Respiratory 16 16 Rate Blood Pressure 104/92 122/75 O2 Sat by Pulse 98 99 Oximetry Procedures - Orthopedic Splinting/Casting Injury #1 Side: right Upper Extremity Injury Location: wrist Upper Extremity Immobilizer: volar splint, Alfonso wrap, synthetic pre-padded splint Medical Decision Making - Medical Decision Making Was pt. sent in by a medical professional or institution (, PA, NICKEL PLATER, urgent care, hospital, or prison...) When possible be specific @ -No Did you speak to anyone other than the patient for history (EMS, parent, family, police, friend...)? What history was obtained from this source @ -I spoke with EMS regarding the patient's arrival Did you review nursing and triage notes (agree or disagree)? Why? @ -I reviewed and agree with nursing and triage notes Were old charts reviewed (outside hosp., previous admission, EMS record, old EKG, old radiological studies, urgent care reports/EKG's, prison records)? Report findings @ -Several old ER visits were reviewed as the patient has been here multiple times for seizure Differential Diagnosis (chest pain, altered mental status, abdominal pain women, abdominal pain men, vaginal bleeding, weakness, fever, dyspnea, syncope, headache, dizziness, GI bleed, back pain, seizure, CVA, palpatations, mental health, musculoskeletal)? @ -Differential Musculoskeletal Muscular strain, contusion, ligament sprain, fracture, arthritis, septic arthritis, bursitis, cellulitis, muscle spasm, nerve compression, DVT, arterial occlusion, herpes zoster, electrolyte abnormality, tumor.... This is not meant to be in all inclusive list EKG interpreted by me (3pts min.). @ -Yes and demonstrates sinus rhythm with a rate of 99. AK interval 224. QRS 99. QTC of 396. No acute ST segment elevations or depressions X-rays interpreted by me (1pt min.). @ -Yes and demonstrates no acute fractures CT interpreted by me (1pt min.). @ -Yes and demonstrates no acute intracranial hemorrhage U/S interpreted by me (1pt. min.). @ -None done What testing was considered but not performed or refused? (CT, X-rays, U/S, labs)? Why? @ -None What meds were considered but not given or refused? Why? @ -None Did you discuss the management of the patient with other professionals (professionals i.e. , PA, NICKEL PLATER, lab, RT, psych nurse, marriage and family social worker, network support, teacher, gunnery/ordnance officer, onsite case manager)? Give summary @ -No Was smoking cessation discussed for >3mins.? @ -No Was critical care preformed (if so, how long)? @ -No Were there social determinants of health that impacted care today? How? (Homelessness, low income, unemployed, alcoholism, drug addiction, transportation, low edu. Level, literacy, decrease access to med. care, penitentiary, rehab)? @ -No Was there de-escalation of care discussed even if they declined (Discuss DNR or withdrawal of care, Hospice)? DNR status @ -No What co-morbidities impacted this encounter? (DM, HTN, Smoking, COPD, CAD, Cancer, CVA, ARF, Chemo, Hep., AIDS, mental health diagnosis, sleep apnea, morbid obesity)? @ -Seizure disorder Was patient admitted / discharged? Hospital course, mention meds given and route, prescriptions, significant lab abnormalities, going to OR and other pertinent info. @ -On arrival patient was placed into room 22. Thorough history and physical exam was performed. X-rays performed of the patient's right wrist. CT was per formed of his brain as it is reported the patient had a seizure after head injury. X-ray does not demonstrate acute fracture. CT does not demonstrate acute intracranial process. He was given Keppra 1000 mg. He is placed in a volar splint on the right. Patient will follow up in 7-10 days for repeat imaging of his pain persists. Highly recommended that the patient take his seizure medication twice daily as it is not effective when he only takes it once daily. He will follow up with his neurologist for breakthrough seizures return for any new or worsening symptoms. Patient was agreeable to the plan and discharged home in stable condition Undiagnosed new problem with uncertain prognosis? @ -No Drug Therapy requiring intensive monitoring for toxicity (Heparin, Nitro, Insulin, Cardizem)? @ -No Were any procedures done? @ -Right wrist volar splint application Diagnosis/symptom? @ -Acute fall, right wrist pain, blunt head injury, break through seizure Acute, or Chronic, or Acute on Chronic? @ -Acute Uncomplicated (without systemic symptoms) or Complicated (systemic symptoms)? @ -Complicated Side effects of treatment? @ -No Exacerbation, Progression, or Severe Exacerbation? @ -No Poses a threat to life or bodily function? How? (Chest pain, USA, [place], pneumonia, PE, COPD, DKA, ARF, appy, cholecystitis, CVA, Diverticulitis, Homicidal, Suicidal, threat to staff... and all critical care pts) @ -No - Lab Data Result diagrams: 10/09/22 00:17 10/09/22 00:17 Lab Results 10/09/22 10/09/22 10/09/22 Range/Units 00:17 00:17 00:17 WBC 11.7 H (3.8-10.6) k/uL RBC 5.39 (4.30-5.90) m/uL Hgb 15.8 (13.0-17.5) gm/dL Hct 46.4 (39.0-53.0) % MCV 86.2 (80.0-100.0) fL MCH 29.3 (25.0-35.0) pg MCHC 34.0 (31.0-37.0) g/dL RDW 12.6 (11.5-15.5) % Plt Count 233 (150-450) k/uL MPV 7.5 Neutrophils % 75 % Lymphocytes % 15 % Monocytes % 8 % Eosinophils % 1 % Basophils % 0 % Neutrophils # 8.7 H (1.3-7.7) k/uL Lymphocytes # 1.7 (1.0-4.8) k/uL Monocytes # 1.0 (0-1.0) k/uL Eosinophils # 0.1 (0-0.7) k/uL Basophils # 0.0 (0-0.2) k/uL Sodium 138 (137-145) mmol/L Potassium 4.1 (3.5-5.1) mmol/L Chloride 103 (98-107) mmol/L Carbon Dioxide 21 L (22-30) mmol/L Anion Gap 14 mmol/L BUN 14 (9-20) mg/dL Creatinine 1.29 H (0.66-1.25) mg/dL Est GFR (CKD-EPI)AfAm 84 (>60 ml/min/1.73 sqM) Est GFR (CKD-EPI)NonAf 73 (>60 ml/min/1.73 sqM) Glucose 87 (74-99) mg/dL Plasma Lactic Acid Jorje 1.1 (0.7-2.0) mmol/L Calcium 9.6 (8.4-10.2) mg/dL Total Bilirubin 0.9 (0.2-1.3) mg/dL AST 56 (17-59) U/L ALT 78 H (4-49) U/L Alkaline Phosphatase 85 (38-126) U/L Total Protein 8.2 (6.3-8.2) g/dL Albumin 4.9 (3.5-5.0) g/dL Disposition Clinical Impression: Fall, Right wrist pain, Breakthrough seizure, Blunt head trauma Disposition: HOME SELF-CARE Condition: Stable Instructions (If sedation given, give patient instructions): Seizure/Epilepsy Discharge Instructions & Follow-Up, Wrist Sprain (ED) Additional Instructions: Wear the splint. Do not get it wet. Follow up with primary care doctor in 7-10 days and have repeat x-ray performed if your pain continues. Take your seizure medications exactly 12 hours apart. Return for any new or worsening symptoms Is patient prescribed a controlled substance at d/c from ED?: No Referrals: Marycarmen Gaston MD [Primary Care Provider] - 1-2 days Time of Disposition: 01:20
[2022-10-09 03:02] VITALS: BP 122/75; PULSE 85; TEMP 98.3
== END 2022-10-09 01:36 | disposition home or self-care (01) ==
LOC: EC 22:58
DX: S09.90XA Unspecified injury of head, initial encounter (principal); M25.531 Pain in right wrist; J45.909 Unspecified asthma, uncomplicated; G40.909 Epilepsy, unspecified, not intractable, without status epilepticus; Z79.899 Other long term (current) drug therapy; Z79.51 Long term (current) use of inhaled steroids; Z87.891 Personal history of nicotine dependence; Z88.1 Allergy status to other antibiotic agents; Z88.8 Allergy status to other drugs, medicaments and biological substances; W18.30XA Fall on same level, unspecified, initial encounter; Y93.67 Activity, basketball
CPT/HCPCS: 36415; 93005; 80053; 83605; 85025; 73110; 72125; 70450; 99285; 96374; 96375; J2270; J1953

== ENCOUNTER 2022-10-25 13:24 | Emergency (ER) | payer OTHER ==
[2022-10-25 13:31] VITALS: RESP 18
[2022-10-25] MEDS ORDERED: levETIRAcetam IV 500 MG/5 ML VIAL IVP STA (14:30)
--- NOTE | 2022-10-25 14:42 | ED ---
General Adult HPI - General Chief complaint: Altered Mental Status Stated complaint: Seizure Time Seen by Provider: 10/25/22 13:43 Source: EMS Mode of arrival: EMS Limitations: altered mental status - History of Present Illness Initial comments: Arturo is a pleasant 32-year-old male with history of seizure disorder who presents the ER today via EMS after a seizure. Patient reports he's been taking his medication Keppra morning and night, he doesn't believe his missed any doses recently. Friends at bedside state that he had walked on the porch and then laid down and about 2 minutes later had some shaking. He did not have any time he did have a loss of bowel or bladder continence. Patient does report he feels confused afterwards and doesn't recall the event. He was arguing down when the seizure happened so no falls or trauma. - Related Data Home Medications Medication Instructions Recorded Confirmed Loratadine [Claritin] 10 mg PO DAILY 01/28/18 06/02/22 Montelukast [Singulair] 10 mg PO DAILY 01/28/18 06/02/22 ARIPiprazole [Abilify] 10 mg PO DAILY 04/28/20 06/02/22 Albuterol Nebulized [Ventolin 2.5 mg INHALATION RT-Q6H PRN 07/25/20 06/02/22 Nebulized] Albuterol Sulfate [Proair Hfa] 2 puff INHALATION RT-QID PRN 07/25/20 06/02/22 Cholecalciferol (Vitamin D3) 125 mcg PO DAILY 07/25/20 06/02/22 [Vitamin D3 (5000 Iu)] Fluticasone Propion/Salmeterol 2 puff INHALATION RT-BID 07/25/20 06/02/22 [Advair Hfa 230-21 Mcg Inhaler] Meclizine HCl 25 mg PO TID PRN 07/25/20 06/02/22 Naproxen [Naprosyn] 500 mg PO Q12HR PRN 07/25/20 06/02/22 Simethicone Chew [Mylicon Chew] 80 mg PO ACHS PRN 07/25/20 06/02/22 Valtoco 10 Mg/[place] 1 spray NASAL DIRECTED PRN 02/24/22 06/02/22 Previous Rx's Medication Instructions Recorded levETIRAcetam [Keppra] 1,000 mg PO Q12HR #60 tab 06/03/22 Azithromycin [Zithromax] 250 mg PO DIRECTED #9 tab 06/21/22 Allergies Allergy/AdvReac Type Severity Reaction Status Date / Time diphenhydramine Allergy Confusion Verified 10/25/22 13:31 [From Benadryl] Sulfa (Sulfonamide Allergy Swelling Verified 10/25/22 13:31 Antibiotics) sulfamethoxazole Allergy Swelling Verified 10/25/22 13:31 [From Bactrim] trimethoprim [From Bactrim] Allergy Swelling Verified 10/25/22 13:31 Review of Systems ROS Statement: Those systems with pertinent positive or pertinent negative responses have been documented in the HPI. ROS Other: All systems not noted in ROS Statement are negative. 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 Date of last positivie culture/infection: 2005 MDRO Source:: leg Past Surgical History: Hernia Repair Additional Past Surgical History / Comment(s): forehead reconstruction for head lac as child Past Anesthesia/Blood Transfusion Reactions: No Reported Reaction Past Psychological History: Bipolar, Depression, PTSD, Schizoaffective Disorder Smoking Status: Former smoker Past Alcohol Use History: Occasional Past Drug Use History: Marijuana - Past Family History Father Family Medical History: Cancer Additional Family Medical History / Comment(s): ADOPTED-NOT TOTALLY SURE OF HHX Mother Family Medical History: Cancer Additional Family Medical History / Comment(s): ADOPTED-NOT TOTALLY SURE OF HHX General Exam - General Exam Comments Initial Comments: Physical Exam GENERAL: Patient is well-developed and well-nourished. Obese. Patient is nontoxic and well-hydrated and is in no distress. HENT: Normocephalic, Atraumatic. No tongue biting or trauma EYES: PERRL, EOMI PULMONARY: Unlabored respirations. CARDIOVASCULAR: RRR Warm and well perfused extremities ABDOMEN: Non-distended SKIN: No rashes or bruising : Deferred NEUROLOGIC: Alert and oriented to person and place Normal speech MUSCULOSKELETAL: Moving all extremities with no apparent injury PSYCHIATRIC: No SI/HI Limitations: altered mental status Course Vital Signs 10/25/22 10/25/22 10/25/22 13:26 15:44 16:36 Temperature 98.5 F 98.0 F Pulse Rate 90 82 85 Respiratory 18 18 18 Rate Blood Pressure 117/72 121/80 117/77 O2 Sat by Pulse 99 Oximetry EKG Findings - EKG Comments: EKG Findings:: EKG interpreted by me. EKG is obtained due to complaint of seizure EKG obtained at 1334 rate is 80 regular sinus, first-degree AV block with MO of 239, QRS [address] QTc [address] elevations or depressions no evidence of ischemia or infarction. Medical Decision Making - Medical Decision Making Was pt. sent in by a medical professional or institution (, PA, INSULATION CUPOLA CHARGER, urgent care, hospital, or fci...) When possible be specific @ -No Did you speak to anyone other than the patient for history (EMS, parent, family, police, friend...)? What history was obtained from this source @ -Friends at bedside Did you review nursing and triage notes (agree or disagree)? Why? @ -I reviewed and agree with nursing and triage notes Were old charts reviewed (outside hosp., previous admission, EMS record, old EKG, old radiological studies, urgent care reports/EKG's, fci records)? Report findings @ -Is ER visits were reviewed Differential Diagnosis (chest pain, altered mental status, abdominal pain women, abdominal pain men, vaginal bleeding, weakness, fever, dyspnea, syncope, headache, dizziness, GI bleed, back pain, seizure, CVA, palpatations, mental health, musculoskeletal)? @ -Differential Seizure: Recurrent seizure disorder, febrile seizure, alcohol withdrawal, stimulants, meningitis, encephalitis, intercranial hemorrhage, intracranial tumor, stroke, eclampsia, thyrotoxicosis, hypocalcemia, hyponatremia, hypernatremia, hypomagnesemia, psychogenic, this is not meant to be an all-inclusive list. EKG interpreted by me (3pts min.). @ -As above X-rays interpreted by me (1pt min.). @ -None done CT interpreted by me (1pt min.). @ -None done U/S interpreted by me (1pt. min.). @ -None done What testing was considered but not performed or refused? (CT, X-rays, U/S, labs)? Why? @ -None What meds were considered but not given or refused? Why? @ -None Did you discuss the management of the patient with other professionals (professionals i.e. , PA, INSULATION CUPOLA CHARGER, lab, RT, psych nurse, social media marketing analyst, salon sales consultant, teacher, airport operations officer, mattress spring encaser)? Give summary @ -No Was smoking cessation discussed for >3mins.? @ -No Was critical care preformed (if so, how long)? @ -No Were there social determinants of health that impacted care today? How? ( Homelessness, low income, unemployed, alcoholism, drug addiction, transportation, low edu. Level, literacy, decrease access to med. care, shelter, rehab)? @ -No Was there de-escalation of care discussed even if they declined (Discuss DNR or withdrawal of care, Hospice)? DNR status @ -No What co-morbidities impacted this encounter? (DM, HTN, Smoking, COPD, CAD, Cancer, CVA, ARF, Chemo, Hep., AIDS, mental health diagnosis, sleep apnea, morbid obesity)? @ -Morbid obesity, seizure disorder Was patient admitted / discharged? Hospital course, mention meds given and route, prescriptions, significant lab abnormalities, going to OR and other pertinent info. @ -She was seen and evaluated, patient with a known history of seizure disorder with a recurrent seizure no signs of trauma. Labs are obtained and no abnormalities patient was given IV Keppra which he has been given in the past and he is discharged home he has a appointment follow with his neurologist outpatient on Saturday Undiagnosed new problem with uncertain prognosis? @ -No Drug Therapy requiring intensive monitoring for toxicity (Heparin, Nitro, I nsulin, Cardizem)? @ -No Were any procedures done? @ -No Diagnosis/symptom? @ -Recurrent seizure Acute, or Chronic, or Acute on Chronic? @ -default Uncomplicated (without systemic symptoms) or Complicated (systemic symptoms)? @ -default Side effects of treatment? @ -No Exacerbation, Progression, or Severe Exacerbation? @ -No Poses a threat to life or bodily function? How? (Chest pain, USA, CT, pneumonia, PE, COPD, DKA, ARF, appy, cholecystitis, CVA, Diverticulitis, Homicidal, Suicidal, threat to staff... and all critical care pts) @ -No - Lab Data Result diagrams: 10/25/22 15:10 10/25/22 15:10 Lab Results 10/25/22 10/25/22 10/25/22 Range/Units 15:10 15:10 15:10 WBC 5.3 (3.8-10.6) k/uL RBC 5.08 (4.30-5.90) m/uL Hgb 15.0 (13.0-17.5) gm/dL Hct 43.4 (39.0-53.0) % MCV 85.5 (80.0-100.0) fL MCH 29.5 (25.0-35.0) pg MCHC 34.5 (31.0-37.0) g/dL RDW 12.7 (11.5-15.5) % Plt Count 170 (150-450) k/uL MPV 8.2 Neutrophils % 54 % Lymphocytes % 33 % Monocytes % 8 % Eosinophils % 3 % Basophils % 1 % Neutrophils # 2.8 (1.3-7.7) k/uL Lymphocytes # 1.8 (1.0-4.8) k/uL Monocytes # 0.4 (0-1.0) k/uL Eosinophils # 0.2 (0-0.7) k/uL Basophils # 0.0 (0-0.2) k/uL Sodium 137 (137-145) mmol/L Potassium 4.2 (3.5-5.1) mmol/L Chloride 103 (98-107) mmol/L Carbon Dioxide 25 (22-30) mmol/L Anion Gap 9 mmol/L BUN 10 (9-20) mg/dL Creatinine 0.79 (0.66-1.25) mg/dL Est GFR (CKD-EPI)AfAm >90 (>60 ml/min/1.73 sqM) Est GFR (CKD-EPI)NonAf >90 (>60 ml/min/1.73 sqM) Glucose 141 H (74-99) mg/dL Plasma Lactic Acid Jorje 1.8 (0.7-2.0) mmol/L Calcium 8.9 (8.4-10.2) mg/dL Total Bilirubin 0.6 (0.2-1.3) mg/dL AST 52 (17-59) U/L ALT 73 H (4-49) U/L Alkaline Phosphatase 63 (38-126) U/L Total Protein 7.2 (6.3-8.2) g/dL Albumin 4.4 (3.5-5.0) g/dL Disposition Clinical Impression: Recurrent seizures Disposition: HOME SELF-CARE Condition: Stable Instructions (If sedation given, give patient instructions): Epilepsy (DC) Additional Instructions: Follow up with your neurologist Saturday as planned Is patient prescribed a controlled substance at d/c from ED?: No Referrals: Marycarmen Gaston MD [Primary Care Provider] - 1-2 days
[2022-10-25 15:23] LABS: Basophils % (A) 1 %; Eosinophils # (A) 0.2 k/uL (0-0.7); Eosinophils % (A) 3 %; HCT 43.4 % (39.0-53.0); Lymphocytes # (A) 1.8 k/uL (1.0-4.8); Lymphocytes % (A) 33 %; MCH 29.5 pg (25.0-35.0); MCHC 34.5 g/dL (31.0-37.0); MCV 85.5 fL (80.0-100.0); Mean Platelet Volume 8.2; Monocytes # (A) 0.4 k/uL (0-1.0); Monocytes % (A) 8 %; Neutrophils # (A) 2.8 k/uL (1.3-7.7); Neutrophils % (A) 54 %; Platelet Count 170 k/uL (150-450); RBC 5.08 m/uL (4.30-5.90); RDW 12.7 % (11.5-15.5); WBC 5.3 k/uL (3.8-10.6)
[2022-10-25 15:38] LABS: ALT 73 U/L (4-49); AST 52 U/L (17-59); African American GFR (CKD) >90 (>60 ml/min/1.73 sqM); Albumin 4.4 g/dL (3.5-5.0); Alkaline Phosphatase 63 U/L (38-126); Anion Gap 9 mmol/L; Blood Urea Nitrogen 10 mg/dL (9-20); Calcium 8.9 mg/dL (8.4-10.2); Carbon Dioxide 25 mmol/L (22-30); Chloride 103 mmol/L (98-107); Glucose 141 mg/dL (74-99); Non-African American GFR(CKD) >90 (>60 ml/min/1.73 sqM); Potassium 4.2 mmol/L (3.5-5.1); Sodium 137 mmol/L (137-145); Total Bilirubin 0.6 mg/dL (0.2-1.3); Total Protein 7.2 g/dL (6.3-8.2)
[2022-10-25 16:36] VITALS: BP 117/77; PULSE 85; TEMP 98
== END 2022-10-25 16:38 | disposition home or self-care (01) ==
LOC: EC 13:24
DX: G40.909 Epilepsy, unspecified, not intractable, without status epilepticus (principal); J45.909 Unspecified asthma, uncomplicated; F41.9 Anxiety disorder, unspecified; Z87.891 Personal history of nicotine dependence; Z79.899 Other long term (current) drug therapy; Z79.51 Long term (current) use of inhaled steroids; Z88.6 Allergy status to analgesic agent; Z88.2 Allergy status to sulfonamides; Z88.8 Allergy status to other drugs, medicaments and biological substances
CPT/HCPCS: 36415; 80053; 83605; 85025; 99285; 96374; J1953

== ENCOUNTER 2022-11-10 19:01 | Emergency (ER) | payer OTHER ==
[2022-11-10] MEDS ORDERED: SODIUM CHLORIDE 0.9% 1,000 ML IV STA (19:04)
[2022-11-10] MEDS ORDERED: LORazepam 2 MG/ML INJ IV STA ×2 (19:13→19:55)
[2022-11-10 19:14] VITALS: TEMP 98.7
[2022-11-10 19:27] LABS: Glucose,Whole Blood 111 mg/dL (70-110)
--- NOTE | 2022-11-10 19:29 | ED ---
General Adult HPI - General Chief complaint: Seizure Stated complaint: Seizures Time Seen by Provider: 11/10/22 19:04 Source: EMS Mode of arrival: EMS - History of Present Illness Initial comments: Patient is a 32-year-old male who presents to the emergency department for seizure. According to EMS patient had a witnessed seizure at his friend's house. Seizure occurred for unknown duration of time. According to EMS patient did not sustain head injury during the seizure. Patient presents asleep. Friend is not at bedside. Patient has history of seizure disorder currently on keppra 1000 mg BID. - Related Data Home Medications Medication Instructions Recorded Confirmed Loratadine [Claritin] 10 mg PO DAILY 01/28/18 06/02/22 Montelukast [Singulair] 10 mg PO DAILY 01/28/18 06/02/22 ARIPiprazole [Abilify] 10 mg PO DAILY 04/28/20 06/02/22 Albuterol Nebulized [Ventolin 2.5 mg INHALATION RT-Q6H PRN 07/25/20 06/02/22 Nebulized] Albuterol Sulfate [Proair Hfa] 2 puff INHALATION RT-QID PRN 07/25/20 06/02/22 Cholecalciferol (Vitamin D3) 125 mcg PO DAILY 07/25/20 06/02/22 [Vitamin D3 (5000 Iu)] Fluticasone Propion/Salmeterol 2 puff INHALATION RT-BID 07/25/20 06/02/22 [Advair Hfa 230-21 Mcg Inhaler] Meclizine HCl 25 mg PO TID PRN 07/25/20 06/02/22 Naproxen [Naprosyn] 500 mg PO Q12HR PRN 07/25/20 06/02/22 Simethicone Chew [Mylicon Chew] 80 mg PO ACHS PRN 07/25/20 06/02/22 Valtoco 10 Mg/[place] 1 spray NASAL DIRECTED PRN 02/24/22 06/02/22 Previous Rx's Medication Instructions Recorded levETIRAcetam [Keppra] 1,000 mg PO Q12HR #60 tab 06/03/22 Azithromycin [Zithromax] 250 mg PO DIRECTED #9 tab 06/21/22 Allergies Allergy/AdvReac Type Severity Reaction Status Date / Time diphenhydramine Allergy Confusion Verified 10/25/22 13:31 [From Benadryl] Sulfa (Sulfonamide Allergy Swelling Verified 10/25/22 13:31 Antibiotics) sulfamethoxazole Allergy Swelling Verified 10/25/22 13:31 [From Bactrim] trimethoprim [From Bactrim] Allergy Swelling Verified 10/25/22 13:31 Review of Systems ROS Statement: Those systems with pertinent positive or pertinent negative responses have been documented in the HPI. ROS Other: All systems not noted in ROS Statement are negative. 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 Date of last positivie culture/infection: 2005 MDRO Source:: leg Past Surgical History: Hernia Repair Additional Past Surgical History / Comment(s): forehead reconstruction for head lac as child Past Anesthesia/Blood Transfusion Reactions: No Reported Reaction Past Psychological History: Bipolar, Depression, PTSD, Schizoaffective Disorder Smoking Status: Former smoker Past Alcohol Use History: Occasional Past Drug Use History: Marijuana - Past Family History Father Family Medical History: Cancer Additional Family Medical History / Comment(s): ADOPTED-NOT TOTALLY SURE OF HHX Mother Family Medical History: Cancer Additional Family Medical History / Comment(s): ADOPTED-NOT TOTALLY SURE OF HHX General Exam General appearance: alert Head exam: Present: atraumatic, normocephalic, normal inspection Eye exam: Present: normal appearance, PERRL. Absent: scleral icterus, conjunctival injection, periorbital swelling, periorbital tenderness ENT exam: Present: normal oropharynx (No tongue trauma) Respiratory exam: Present: normal lung sounds bilaterally. Absent: respiratory distress, wheezes, rales, rhonchi, stridor Cardiovascular Exam: Present: regular rate, normal rhythm, normal heart sounds. Absent: systolic murmur, diastolic murmur, rubs, gallop, clicks Skin exam: Present: warm, dry, intact, normal color. Absent: rash Course Vital Signs 11/10/22 11/10/22 11/10/22 19:03 20:01 21:59 Temperature 98.7 F Pulse Rate 80 81 79 Respiratory 14 16 16 Rate Blood Pressure 142/86 137/80 127/85 O2 Sat by Pulse 98 98 96 Oximetry Medical Decision Making - Medical Decision Making EKG taken at 19:15, interpreted by myself Sinus rhythm with first-degree AV block Ventricular rate 80, AR interval 244, QRS duration 106, QTC 404 Was pt. sent in by a medical professional or institution (, [facility], HOSIERY MENDER, urgent care, hospital, or prison...) When possible be specific @ -No Did you speak to anyone other than the patient for history (EMS, parent, family, police, friend...)? What history was obtained from this source @EMS provided all history Did you review nursing and triage notes (agree or disagree)? Why? @ -I reviewed and agree with nursing and triage notes Were old charts reviewed (outside hosp., previous admission, EMS record, old EKG, old radiological studies, urgent care reports/EKG's, prison records)? Report findings @ -No old charts were reviewed Differential Diagnosis (chest pain, altered mental status, abdominal pain women, abdominal pain men, vaginal bleeding, weakness, fever, dyspnea, syncope, headache, dizziness, GI bleed, back pain, seizure, CVA, palpatations, mental health)? @ -Differential Seizure: Recurrent seizure disorder, febrile seizure, alcohol withdrawal, stimulants, meningitis, encephalitis, intercranial hemorrhage, intracranial tumor, stroke, eclampsia, thyrotoxicosis, hypocalcemia, hyponatremia, hypernatremia, hypomagnesemia, psychogenic, this is not meant to be an all-inclusive list. EKG interpreted by me (3pts min.). @ -As above X-rays interpreted by me (1pt min.). @ -None done CT interpreted by me (1pt min.). @ -None done U/S interpreted by me (1pt. min.). @ -None done What testing was considered but not performed or refused? (CT, X-rays, U/S, labs)? Why? @ -None What meds were considered but not given or refused? Why? @ -None Did you discuss the management of the patient with other professionals (professionals i.e. [facility] Chapman, HOSIERY MENDER, lab, RT, psych nurse, social director, telephone installer, teacher, certification officer, community case manager)? Give summary @ -No Was smoking cessation discussed for >3mins.? @ -No Was critical care preformed (if so, how long)? @ -No Were there social determinants of health that impacted care today? How? (Homelessness, low income, unemployed, alcoholism, drug addiction, t ransportation, low edu. Level, literacy, decrease access to med. care, senior care, rehab)? @ -No Was there de-escalation of care discussed even if they declined (Discuss DNR or withdrawal of care, Hospice)? DNR status @ -No What co-morbidities impacted this encounter? (DM, HTN, Smoking, COPD, CAD, Cancer, CVA, ARF, Chemo, Hep., AIDS, mental health diagnosis, sleep apnea, morbid obesity)? @ -None Was patient admitted / discharged? Hospital course, mention meds given and route, prescriptions, significant lab abnormalities, going to OR and other pertinent info. @ -This is a 32-year-old male presenting for seizure. Upon evaluation patient is resting comfortably. Patient then begins to twitch. Patient's arm was raised above his head upon letting go patient moved arm. Patient forcefully closed eyelid when pressure applied to cornea. Cornea reflex intact. Laboratory studies obtained. Labs are relatively unremarkable. Patient was observed closely had no further seizure-like activity. He did return to baseline requested to go home. Patient alert and oriented 4. He will follow up with his neurologist. Undiagnosed new problem with uncertain prognosis? @ -No Drug Therapy requiring intensive monitoring for toxicity (Heparin, Nitro, Insulin, Cardizem)? @ -No Were any procedures done? @ -No Diagnosis/symptom? @ -Psychogenic nonepileptic seizure Acute, or Chronic, or Acute on Chronic? @ -[Acute Uncomplicated (without systemic symptoms) or Complicated (systemic symptoms)? @ -[Uncomplicated Side effects of treatment? @ -No Exacerbation, Progression, or Severe Exacerbation? @ -No Poses a threat to life or bodily function? How? (Chest pain, [place], [place], pneumonia, PE, COPD, DKA, ARF, appy, cholecystitis, CVA, Diverticulitis, Homicidal, Suicidal, threat to staff... and all critical care pts) @ -No Dr. Pop is my attending - Lab Data Result diagrams: 11/10/22 19:40 11/10/22 19:40 Lab Results 11/10/22 11/10/22 11/10/22 Range/Units 19:23 19:40 19:40 WBC 6.2 (3.8-10.6) k/uL RBC 5.30 (4.30-5.90) m/uL Hgb 15.6 (13.0-17.5) gm/dL Hct 45.9 (39.0-53.0) % MCV 86.6 (80.0-100.0) fL MCH 29.5 (25.0-35.0) pg MCHC 34.1 (31.0-37.0) g/dL RDW 12.8 (11.5-15.5) % Plt Count 226 (150-450) k/uL MPV 7.2 Neutrophils % 58 % Lymphocytes % 31 % Monocytes % 7 % Eosinophils % 2 % Basophils % 0 % Neutrophils # 3.6 (1.3-7.7) k/uL Lymphocytes # 1.9 (1.0-4.8) k/uL Monocytes # 0.4 (0-1.0) k/uL Eosinophils # 0.2 (0-0.7) k/uL Basophils # 0.0 (0-0.2) k/uL Sodium 138 (137-145) mmol/L Potassium 4.3 (3.5-5.1) mmol/L Chloride 104 (98-107) mmol/L Carbon Dioxide 27 (22-30) mmol/L Anion Gap 7 mmol/L BUN 9 (9-20) mg/dL Creatinine 0.91 (0.66-1.25) mg/dL Est GFR (CKD-EPI)AfAm >90 (>60 ml/min/1.73 sqM) Est GFR (CKD-EPI)NonAf >90 (>60 ml/min/1.73 sqM) Glucose 95 (74-99) mg/dL POC Glucose (mg/dL) 111 H (70-110) mg/dL POC Glu Director Imaging ID Renzo Merchant Calcium 9.4 (8.4-10.2) mg/dL Magnesium 2.1 (1.6-2.3) mg/dL Total Bilirubin 1.0 (0.2-1.3) mg/dL AST 67 H (17-59) U/L ALT 78 H (4-49) U/L Alkaline Phosphatase 65 (38-126) U/L Total Protein 7.8 (6.3-8.2) g/dL Albumin 4.6 (3.5-5.0) g/dL Disposition Clinical Impression: Psychogenic nonepileptic seizure Disposition: HOME SELF-CARE Condition: Good Instructions (If sedation given, give patient instructions): Recurrent Seizures in Adults (ED) Additional Instructions: Follow-up and with neurology in 1-2 days. Return to the emergency department if you experience new, concerning, or worsening symptoms Is patient prescribed a controlled substance at d/c from ED?: No Referrals: Marycarmen Gaston MD [Primary Care Provider] - 1-2 days
[2022-11-10 19:49] LABS: Basophils % (A) 0 %; Eosinophils # (A) 0.2 k/uL (0-0.7); Eosinophils % (A) 2 %; HCT 45.9 % (39.0-53.0); HGB 15.6 gm/dL (13.0-17.5); Lymphocytes # (A) 1.9 k/uL (1.0-4.8); Lymphocytes % (A) 31 %; MCH 29.5 pg (25.0-35.0); MCHC 34.1 g/dL (31.0-37.0); MCV 86.6 fL (80.0-100.0); Mean Platelet Volume 7.2; Monocytes # (A) 0.4 k/uL (0-1.0); Monocytes % (A) 7 %; Neutrophils # (A) 3.6 k/uL (1.3-7.7); Neutrophils % (A) 58 %; Platelet Count 226 k/uL (150-450); RDW 12.8 % (11.5-15.5); WBC 6.2 k/uL (3.8-10.6)
[2022-11-10 20:03] LABS: ALT 78 U/L (4-49); AST 67 U/L (17-59); African American GFR (CKD) >90 (>60 ml/min/1.73 sqM); Albumin 4.6 g/dL (3.5-5.0); Alkaline Phosphatase 65 U/L (38-126); Anion Gap 7 mmol/L; Blood Urea Nitrogen 9 mg/dL (9-20); Calcium 9.4 mg/dL (8.4-10.2); Carbon Dioxide 27 mmol/L (22-30); Chloride 104 mmol/L (98-107); Glucose 95 mg/dL (74-99); Magnesium 2.1 mg/dL (1.6-2.3); Non-African American GFR(CKD) >90 (>60 ml/min/1.73 sqM); Sodium 138 mmol/L (137-145); Total Protein 7.8 g/dL (6.3-8.2)
[2022-11-10 20:05] LABS: Potassium 4.3 mmol/L (3.5-5.1)
[2022-11-10 20:06] VITALS: RESP 16
[2022-11-10] MEDS ORDERED: levETIRAcetam IV 500 MG/5 ML VIAL IVP STA (21:29)
[2022-11-10 22:01] VITALS: BP 127/85; PULSE 79
== END 2022-11-10 22:03 | disposition home or self-care (01) ==
LOC: EC 19:01
DX: F44.5 Conversion disorder with seizures or convulsions (principal); J45.909 Unspecified asthma, uncomplicated; F31.9 Bipolar disorder, unspecified; Z87.891 Personal history of nicotine dependence; F12.90 Cannabis use, unspecified, uncomplicated; Z88.2 Allergy status to sulfonamides; Z88.8 Allergy status to other drugs, medicaments and biological substances; Z79.51 Long term (current) use of inhaled steroids; Z79.899 Other long term (current) drug therapy
CPT/HCPCS: 36415; 93005; 80053; 83735; 85025; 99285; 96374; 96375; 96376; J2060; J1953

== ENCOUNTER 2022-11-21 19:04 | Emergency (ER) | payer OTHER ==
[2022-11-21] MEDS ORDERED: levETIRAcetam 500 MG TAB PO STA (20:03)
--- NOTE | 2022-11-21 20:04 | ED ---
Seizure HPI - General Chief Complaint: Seizure Stated Complaint: Seizure Time Seen by Provider: 11/21/22 19:17 Source: EMS, RN notes reviewed, old records reviewed Mode of arrival: EMS Limitations: no limitations - History of Present Illness Initial Comments: This is a 32-year-old male to the emergency department for evaluation today. Patient resents today for evaluation regards to seizure-like activity. Patient has seizure prior to arrival history of seizures but in by family and friends for evaluation. Patient currently awake alert states just intermittently event but has no complaints. Patient does state he did not take his seizure medication today MD Complaint: seizure, possible seizure -: minutes(s) Description of Episode: loss of consciousness, tonic-clonic movement -: second(s) Witnessed: yes - by bystander Trauma: Yes Seizure History: known seizure disorder Place: home Possible Precipitating Event: none Associated Symptoms: denies other symptoms Treatments Prior to Arrival: none - Related Data Home Medications Medication Instructions Recorded Confirmed Loratadine [Claritin] 10 mg PO DAILY 01/28/18 06/02/22 Montelukast [Singulair] 10 mg PO DAILY 01/28/18 06/02/22 ARIPiprazole [Abilify] 10 mg PO DAILY 04/28/20 06/02/22 Albuterol Nebulized [Ventolin 2.5 mg INHALATION RT-Q6H PRN 07/25/20 06/02/22 Nebulized] Albuterol Sulfate [Proair Hfa] 2 puff INHALATION RT-QID PRN 07/25/20 06/02/22 Cholecalciferol (Vitamin D3) 125 mcg PO DAILY 07/25/20 06/02/22 [Vitamin D3 (5000 Iu)] Fluticasone Propion/Salmeterol 2 puff INHALATION RT-BID 07/25/20 06/02/22 [Advair Hfa 230-21 Mcg Inhaler] Meclizine HCl 25 mg PO TID PRN 07/25/20 06/02/22 Naproxen [Naprosyn] 500 mg PO Q12HR PRN 07/25/20 06/02/22 Simethicone Chew [Mylicon Chew] 80 mg PO ACHS PRN 07/25/20 06/02/22 Valtoco 10 Mg/[place] 1 spray NASAL DIRECTED PRN 02/24/22 06/02/22 Previous Rx's Medication Instructions Recorded levETIRAcetam [Keppra] 1,000 mg PO Q12HR #60 tab 06/03/22 Azithromycin [Zithromax] 250 mg PO DIRECTED #9 tab 06/21/22 Allergies Allergy/AdvReac Type Severity Reaction Status Date / Time diphenhydramine Allergy Confusion Verified 11/21/22 19:13 [From Benadryl] Sulfa (Sulfonamide Allergy Swelling Verified 11/21/22 19:13 Antibiotics) sulfamethoxazole Allergy Swelling Verified 11/21/22 19:13 [From Bactrim] trimethoprim [From Bactrim] Allergy Swelling Verified 11/21/22 19:13 Review of Systems ROS Statement: Those systems with pertinent positive or pertinent negative responses have been documented in the HPI. ROS Other: All systems not noted in ROS Statement are negative. 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 Date of last positivie culture/infection: 2005 MDRO Source:: leg Past Surgical History: Hernia Repair Additional Past Surgical History / Comment(s): forehead reconstruction for head lac as child Past Anesthesia/Blood Transfusion Reactions: No Reported Reaction Past Psychological History: Bipolar, Depression, PTSD, Schizoaffective Disorder Smoking Status: Former smoker Past Alcohol Use History: Occasional Past Drug Use History: Marijuana - Past Family History Father Family Medical History: Cancer Additional Family Medical History / Comment(s): ADOPTED-NOT TOTALLY SURE OF HHX Mother Family Medical History: Cancer Additional Family Medical History / Comment(s): ADOPTED-NOT TOTALLY SURE OF HHX General Exam Limitations: no limitations General appearance: alert, in no apparent distress Head exam: Present: atraumatic, normocephalic, normal inspection Eye exam: Present: normal appearance, PERRL, EOMI. Absent: scleral icterus, conjunctival injection, periorbital swelling ENT exam: Present: normal exam, mucous membranes moist Neck exam: Present: normal inspection. Absent: tenderness, meningismus, lymphadenopathy Respiratory exam: Present: normal lung sounds bilaterally. Absent: respiratory distress, wheezes, rales, rhonchi, stridor Cardiovascular Exam: Present: regular rate, normal rhythm, normal heart sounds. Absent: systolic murmur, diastolic murmur, rubs, gallop, clicks GI/Abdominal exam: Present: soft, normal bowel sounds. Absent: distended, tenderness, guarding, rebound, rigid Extremities exam: Present: normal inspection, full ROM, normal capillary refill. Absent: tenderness, pedal edema, joint swelling, calf tenderness Back exam: Present: normal inspection Neurological exam: Present: alert, oriented X3, CN II-XII intact Psychiatric exam: Present: normal affect, normal mood Skin exam: Present: warm, dry, intact, normal color. Absent: rash Course Vital Signs 11/21/22 11/21/22 19:09 20:19 Temperature 98.3 F 97.9 F Pulse Rate 82 78 Respiratory 20 18 Rate Blood Pressure 108/68 132/76 O2 Sat by Pulse 100 98 Oximetry - Reevaluation(s) Reevaluation #1: 11/21/22 20:05 Medical record is reviewed Reevaluation #2: 11/21/22 20:05 Patient symptoms are unchanged, no recurrent seizures Reevaluation #3: 11/21/22 20:05 Patient informed of results questions answered Reevaluation #4: 11/21/22 20:06 Was pt. sent in by a medical professional or institution ([facility], MARKETING COMM[employer]ICATIONS ASSOCIATE, urgent care, hospital, or correction...) When possible be specific @ -no Did you speak to anyone other than the patient for history (EMS, parent, family, police, friend...)? What history was obtained from this source @ -no Did you review nursing and triage notes (agree or disagree)? Why? @ -agree Are old charts reviewed (outside hosp., previous admission, EMS record, old EKG, old radiological studies, urgent care reports/EKG's, correction records)? Report findings @ -yes Differential Diagnosis (chest pain, altered mental status, abdominal pain women, abdominal pain men, vaginal bleeding, weakness, fever, dyspnea, syncope, headache, dizziness, GI bleed, back pain, seizure, CVA, palpatations, mental health, musculoskeletal)? @ -prior EKG interpreted by me (3pts min.). @ -no X-rays interpreted by me (1pt min.). @ -no CT interpreted by me (1pt min.). @ -no U/S interpreted by me (1pt. min.). @ -no What testing was considered but not performed or refused? (CT, X-rays, U/S, labs)? Why? @ -none What meds were considered but not given or refused? Why? @ -none Did you discuss the management of the patient with other professionals (pro fessionals i.e. , PA, MARKETING COMMUNICATIONS ASSOCIATE, lab, RT, psych nurse, psychosocial rehabilitation counselor, saas architect, teacher, nuclear security officer, case packer and sealer)? Give summary @ -no Was smoking cessation discussed for >3mins.? @ -no Was critical care preformed (if so, how long)? @ -no Were there social determinants of health that impacted care today? How? (Homelessness, low income, unemployed, alcoholism, drug addiction, transportation, low edu. Level, literacy, decrease access to med. care, nursing home, rehab)? @ -none Was there de-escalation of care discussed even if they declined (Discuss DNR or withdrawal of care, Hospice)? DNR status @ -no What co-morbidities impacted this encounter? (DM, HTN, Smoking, COPD, CAD, Cancer, CVA, ARF, Chemo, Hep., AIDS, mental health diagnosis, sleep apnea, morbid obesity)? @ -none Was patient admitted / discharged? Hospital course, mention meds given and route, prescriptions, significant lab abnormalities, going to OR and other pertinent info. @ - 32 male to the emergency department for evaluation of seizure recurrent seizure here in the ER, medication noncompliance given Her here in the ER no recurrent seizure activity and patient can be discharged home Discharge Undiagnosed new problem with uncertain prognosis? @ -no Drug Therapy requiring intensive monitoring for toxicity (Heparin, Nitro, Insulin, Cardizem)? @ -no Were any procedures done? @ -no Diagnosis/symptom? @ -Recurrent seizures Acute, or Chronic, or Acute on Chronic? @ -Acute Uncomplicated (without systemic symptoms) or Complicated (systemic symptoms)? @ -Complicated Side effects of treatment? @ -no Exacerbation, Progression, or Severe Exacerbation? @ -exacerbation Poses a threat to life or bodily function? How? (Chest pain, [place], [place], pneumonia, PE, COPD, DKA, ARF, appy, cholecystitis, CVA, Diverticulitis, Homicidal, Suicidal, threat to staff... and all critical care pts) @ -yes with persistent seizure activity Reevaluation #5: 11/21/22 20:06 Differential Seizure: Recurrent seizure disorder, febrile seizure, alcohol withdrawal, stimulants, meningitis, encephalitis, intercranial hemorrhage, intracranial tumor, stroke, eclampsia, thyrotoxicosis, hypocalcemia, hyponatremia, hypernatremia, hypomagnesemia, psychogenic, this is not meant to be an all-inclusive list. Medical Decision Making - Medical Decision Making 32 male to the emergency department for evaluation of seizure recurrent seizure here in the ER, medication noncompliance given Her here in the ER no recurrent seizure activity and patient can be discharged home Disposition Clinical Impression: Recurrent seizures Disposition: HOME SELF-CARE Condition: Fair Instructions (If sedation given, give patient instructions): Recurrent Seizures in Adults (ED) Is patient prescribed a controlled substance at d/c from ED?: No Referrals: Marycarmen Gaston MD [Primary Care Provider] - 1-2 days Time of Disposition: 20:00
[2022-11-22 15:47] VITALS: BP 132/76; PULSE 78; RESP 18; TEMP 97.9
== END 2022-11-21 20:19 | disposition home or self-care (01) ==
LOC: EC 19:04
DX: R56.9 Unspecified convulsions (principal); J45.909 Unspecified asthma, uncomplicated; F31.9 Bipolar disorder, unspecified; Z87.891 Personal history of nicotine dependence; F12.90 Cannabis use, unspecified, uncomplicated; Z88.2 Allergy status to sulfonamides; Z88.8 Allergy status to other drugs, medicaments and biological substances; Z79.899 Other long term (current) drug therapy
CPT/HCPCS: 99284

== ENCOUNTER 2022-11-26 20:19 | Emergency (ER) | payer OTHER ==
[2022-11-26 20:26] VITALS: RESP 16; TEMP 98.8
[2022-11-26 20:46] LABS: Glucose,Whole Blood 195 mg/dL (70-110)
[2022-11-26 21:56] LABS: Basophils % (A) 0 %; Eosinophils % (A) 0 %; HCT 45.2 % (39.0-53.0); HGB 14.7 gm/dL (13.0-17.5); Lymphocytes # (A) 1.6 k/uL (1.0-4.8); Lymphocytes % (A) 18 %; MCH 28.6 pg (25.0-35.0); MCHC 32.4 g/dL (31.0-37.0); MCV 88.3 fL (80.0-100.0); Mean Platelet Volume 7.8; Monocytes # (A) 0.6 k/uL (0-1.0); Monocytes % (A) 7 %; Neutrophils # (A) 6.8 k/uL (1.3-7.7); Neutrophils % (A) 74 %; Platelet Count 234 k/uL (150-450); RBC 5.11 m/uL (4.30-5.90); RDW 12.9 % (11.5-15.5); WBC 9.2 k/uL (3.8-10.6)
[2022-11-26 22:09] LABS: ALT 76 U/L (4-49); AST 64 U/L (17-59); African American GFR (CKD) >90 (>60 ml/min/1.73 sqM); Albumin 4.6 g/dL (3.5-5.0); Alcohol <10 mg/dL; Alkaline Phosphatase 65 U/L (38-126); Anion Gap 10 mmol/L; Blood Urea Nitrogen 10 mg/dL (9-20); Calcium 9.3 mg/dL (8.4-10.2); Carbon Dioxide 24 mmol/L (22-30); Chloride 105 mmol/L (98-107); Glucose 117 mg/dL (74-99); Magnesium 2.1 mg/dL (1.6-2.3); Non-African American GFR(CKD) >90 (>60 ml/min/1.73 sqM); Potassium 3.9 mmol/L (3.5-5.1); Sodium 139 mmol/L (137-145); Total Bilirubin 0.8 mg/dL (0.2-1.3); Total Protein 7.6 g/dL (6.3-8.2)
--- NOTE | 2022-11-26 23:20 | ED ---
Seizure HPI - General Chief Complaint: Seizure Stated Complaint: SEIZURES Time Seen by Provider: 11/26/22 20:35 Source: EMS Mode of arrival: EMS Limitations: no limitations - History of Present Illness Initial Comments: This 32-year-old male presents by EMS with some seizure activity. He apparently has a history of seizures and nonepileptic seizures. This apparently just started shortly prior to arrival. EMS cannot relate exactly how long the seizu re activity lasted. Friends or family later do present and states that the patient had apparently called EMS as there was a gas leak in the house. They state that there was no carbon monoxide but apparently some gas. When the ambulance approached the lights are on and they state that this is what causes him to have seizure-like activity. Upon waking, the patient states that he feels fine. He has not had any recent pain. He has not had any recent fevers or chills. He apparently has had some recent medication changes. He normally is on Keppra but they added another unknown medication for his seizures recently. No other complaints or modifying factors. - Related Data Home Medications Medication Instructions Recorded Confirmed Loratadine [Claritin] 10 mg PO DAILY 01/28/18 06/02/22 Montelukast [Singulair] 10 mg PO DAILY 01/28/18 06/02/22 ARIPiprazole [Abilify] 10 mg PO DAILY 04/28/20 06/02/22 Albuterol Nebulized [Ventolin 2.5 mg INHALATION RT-Q6H PRN 07/25/20 06/02/22 Nebulized] Albuterol Sulfate [Proair Hfa] 2 puff INHALATION RT-QID PRN 07/25/20 06/02/22 Cholecalciferol (Vitamin D3) 125 mcg PO DAILY 07/25/20 06/02/22 [Vitamin D3 (5000 Iu)] Fluticasone Propion/Salmeterol 2 puff INHALATION RT-BID 07/25/20 06/02/22 [Advair Hfa 230-21 Mcg Inhaler] Meclizine HCl 25 mg PO TID PRN 07/25/20 06/02/22 Naproxen [Naprosyn] 500 mg PO Q12HR PRN 07/25/20 06/02/22 Simethicone Chew [Mylicon Chew] 80 mg PO ACHS PRN 07/25/20 06/02/22 Valtoco 10 Mg/[place] 1 spray NASAL DIRECTED PRN 02/24/22 06/02/22 Previous Rx's Medication Instructions Recorded levETIRAcetam [Keppra] 1,000 mg PO Q12HR #60 tab 06/03/22 Azithromycin [Zithromax] 250 mg PO DIRECTED #9 tab 06/21/22 Allergies Allergy/AdvReac Type Severity Reaction Status Date / Time diphenhydramine Allergy Confusion Verified 11/21/22 19:13 [From Benadryl] Sulfa (Sulfonamide Allergy Swelling Verified 11/21/22 19:13 Antibiotics) sulfamethoxazole Allergy Swelling Verified 11/21/22 19:13 [From Bactrim] trimethoprim [From Bactrim] Allergy Swelling Verified 11/21/22 19:13 Review of Systems ROS Statement: Those systems with pertinent positive or pertinent negative responses have been documented in the HPI. ROS Other: All systems not noted in ROS Statement are negative. 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 Date of last positivie culture/infection: 2005 MDRO Source:: leg Past Surgical History: Hernia Repair Additional Past Surgical History / Comment(s): forehead reconstruction for head lac as child Past Anesthesia/Blood Transfusion Reactions: No Reported Reaction Past Psychological History: Bipolar, Depression, PTSD, Schizoaffective Disorder Smoking Status: Former smoker Past Alcohol Use History: Occasional Past Drug Use History: Marijuana - Past Family History Father Family Medical History: Cancer Additional Family Medical History / Comment(s): ADOPTED-NOT TOTALLY SURE OF HHX Mother Family Medical History: Cancer Additional Family Medical History / Comment(s): ADOPTED-NOT TOTALLY SURE OF HHX General Exam - General Exam Comments Initial Comments: GENERAL: The patient is well nourished and well hydrated. VITAL SIGNS: Heart rate, blood pressure, respiratory rate reviewed as recorded in nurse's notes. EYES: Pupils are round and reactive. Extraocular movements are intact. No conjunctival / lid redness or swelling. ENT: No external evidence of injury, swelling, or ecchymosis. Airway is patent. Throat is clear. NECK: Nontender. No swelling or evidence of injury. No subcutaneous emphysema. Trachea is midline. No thyroid mass. HEART: Regular rate and rhythm. Good peripheral pulses. LUNGS/CHEST: Breath sounds clear and equal bilaterally. No rales, rhonchi, or wheezes. No ecchymosis, subcutaneous emphysema, or tenderness. ABDOMEN: Abdomen soft without tenderness. No palpable masses or organomegaly. No peritoneal signs. No abdominal wall swelling or ecchymosis. EXTREMITIES: No extremity tenderness. Normal muscle tone and function. No thoracolumbar tenderness. NEUROLOGIC: Sensation is grossly intact. Cranial nerve exam reveals face is symmetrical, tongue is midline, speech is clear. SKIN: No abrasions or ecchymosis is noted. No induration or masses noted. PSYCHIATRIC: Alert and oriented. Appropriate behavior and judgment. Limitations: no limitations Course Vital Signs 11/26/22 11/26/22 11/26/22 20:22 21:15 22:10 Temperature 98.8 F Pulse Rate 96 101 H 96 Respiratory 16 16 16 Rate Blood Pressure 147/81 131/81 143/62 O2 Sat by Pulse 94 L 98 99 Oximetry Medical Decision Making - Medical Decision Making The patient was seen and examined immediately upon arrival. A small amount of water was splashed in his face and he does flinch when this occurs. 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 Old records are reviewed and it appears as though he was just here recently with pseudoseizures well. Laboratories drawn and this does show a mild transaminitis. He appears quite well and is planning on his phone on recheck. Is alert and oriented and in no distress. It is felt as though he stable for discharge home. Close follow-up with his doctor recommended. Was pt. sent in by a medical professional or institution (, PA, SENIOR STORAGE ADMINISTRATOR, urgent care, hospital, or half-way...) When possible be specific @ -[No] Did you speak to anyone other than the patient for history (EMS, parent, family, police, friend...)? What history was obtained from this source @ -Case is discussed with EMS upon arrival. Did you review nursing and triage notes (agree or disagree)? Why? @ -[I reviewed and agree with nursing and triage notes] Were old charts reviewed (outside hosp., previous admission, EMS record, old EKG, old radiological studies, urgent care reports/EKG's, half-way records)? Report findings @ -Old records were reviewed which does relate recent pseudoseizures history. Differential Diagnosis (chest pain, altered mental status, abdominal pain women, abdominal pain men, vaginal bleeding, weakness, fever, dyspnea, syncope, headache, dizziness, GI bleed, back pain, seizure, CVA, palpatations, mental health, musculoskeletal)? @ -Seizure, epilepsy, pseudoseizures EKG interpreted by me (3pts min.). @ -None X-rays interpreted by me (1pt min.). @ -[None done] CT interpreted by me (1pt min.). @ -[None done] U/S interpreted by me (1pt. min.). @ -[None done] What testing was considered but not performed or refused? (CT, X-rays, U/S, labs)? Why? @ -[None] What meds were considered but not given or refused? Why? @ -[None] Did you discuss the management of the patient with other professionals (professionals i.e. , PA, SENIOR STORAGE ADMINISTRATOR, lab, RT, psych nurse, social science professor, mobility architect, teacher, infantry officer, manager case)? Give summary @ -[No] Was smoking cessation discussed for >3mins.? @ -[No] Was critical care preformed (if so, how long)? @ -[No] Were there social determinants of health that impacted care today? How? (Homelessness, low income, unemployed, alcoholism, drug addiction, transportation, low edu. Level, literacy, decrease access to med. care, snf, rehab)? @ -[No] Was there de-escalation of care discussed even if they declined (Discuss DNR or withdrawal of care, Hospice)? DNR status @ -[No] What co-morbidities impacted this encounter? (DM, HTN, Smoking, COPD, CAD, Cancer, CVA, ARF, Chemo, Hep., AIDS, mental health diagnosis, sleep apnea, m orbid obesity)? @ -Pseudoseizures, seizures Was patient admitted / discharged? Hospital course, mention meds given and route, prescriptions, significant lab abnormalities, going to OR and other pertinent info. @ -Patient was discharged home Undiagnosed new problem with uncertain prognosis? @ -[No] Drug Therapy requiring intensive monitoring for toxicity (Heparin, Nitro, Insulin, Cardizem)? @ -[No] Were any procedures done? @ -[No] Diagnosis/symptom? @ -Nonepileptic pseudoseizures Acute, or Chronic, or Acute on Chronic? @ -Chronic Uncomplicated (without systemic symptoms) or Complicated (systemic symptoms)? @ -Uncomplicated Side effects of treatment? @ -[No] Exacerbation, Progression, or Severe Exacerbation? @ -[No] Poses a threat to life or bodily function? How? (Chest pain, USA, [place], pneumonia, PE, COPD, DKA, ARF, appy, cholecystitis, CVA, Diverticulitis, Homicidal, Suicidal, threat to staff... and all critical care pts) @ -[No] - Lab Data Result diagrams: 11/26/22 20:29 11/26/22 20:29 Lab Results 11/26/22 11/26/22 11/26/22 Range/Units 20:29 20:29 20:45 WBC 9.2 (3.8-10.6) k/uL RBC 5.11 (4.30-5.90) m/uL Hgb 14.7 (13.0-17.5) gm/dL Hct 45.2 (39.0-53.0) % MCV 88.3 (80.0-100.0) fL MCH 28.6 (25.0-35.0) pg MCHC 32.4 (31.0-37.0) g/dL RDW 12.9 (11.5-15.5) % Plt Count 234 (150-450) k/uL MPV 7.8 Neutrophils % 74 % Lymphocytes % 18 % Monocytes % 7 % Eosinophils % 0 % Basophils % 0 % Neutrophils # 6.8 (1.3-7.7) k/uL Lymphocytes # 1.6 (1.0-4.8) k/uL Monocytes # 0.6 (0-1.0) k/uL Eosinophils # 0.0 (0-0.7) k/uL Basophils # 0.0 (0-0.2) k/uL Sodium 139 (137-145) mmol/L Potassium 3.9 (3.5-5.1) mmol/L Chloride 105 (98-107) mmol/L Carbon Dioxide 24 (22-30) mmol/L Anion Gap 10 mmol/L BUN 10 (9-20) mg/dL Creatinine 1.06 (0.66-1.25) mg/dL Est GFR (CKD-EPI)AfAm >90 (>60 ml/min/1.73 sqM) Est GFR (CKD-EPI)NonAf >90 (>60 ml/min/1.73 sqM) Glucose 117 H (74-99) mg/dL POC Glucose (mg/dL) 195 H (70-110) mg/dL POC Glu Mold Technician ID Renzo Vital Calcium 9.3 (8.4-10.2) mg/dL Phosphorus 3.0 (2.5-4.5) mg/dL Magnesium 2.1 (1.6-2.3) mg/dL Total Bilirubin 0.8 (0.2-1.3) mg/dL AST 64 H (17-59) U/L ALT 76 H (4-49) U/L Alkaline Phosphatase 65 (38-126) U/L Total Protein 7.6 (6.3-8.2) g/dL Albumin 4.6 (3.5-5.0) g/dL Serum Alcohol <10 mg/dL Disposition Clinical Impression: Psychogenic nonepileptic seizure Disposition: HOME SELF-CARE Condition: Good Instructions (If sedation given, give patient instructions): Nonepileptic Seizures (ED) Is patient prescribed a controlled substance at d/c from ED?: No Referrals: Marycarmen Gaston MD [Primary Care Provider] - 1-2 days Time of Disposition: 23:20
[2022-11-26 23:27] VITALS: BP 118/82; PULSE 87
== END 2022-11-26 23:31 | disposition home or self-care (01) ==
LOC: EC 20:19
DX: F44.5 Conversion disorder with seizures or convulsions (principal); J45.909 Unspecified asthma, uncomplicated; F31.9 Bipolar disorder, unspecified; F12.90 Cannabis use, unspecified, uncomplicated; Z87.891 Personal history of nicotine dependence; Z79.899 Other long term (current) drug therapy; Z88.1 Allergy status to other antibiotic agents; Z88.2 Allergy status to sulfonamides; Z88.8 Allergy status to other drugs, medicaments and biological substances
CPT/HCPCS: 36415; 80053; 83735; 84100; 85025; 99284; G0480; 80320

== ENCOUNTER 2022-11-29 14:30 | Emergency (ER) | payer OTHER ==
[2022-11-29 14:57] VITALS: RESP 18
[2022-11-29] MEDS ORDERED: LORazepam 2 MG/ML INJ IV STA (15:04)
--- NOTE | 2022-11-29 15:07 | ED ---
Seizure HPI - General Chief Complaint: Seizure Stated Complaint: Seizure Time Seen by Provider: 11/29/22 15:03 Source: patient Mode of arrival: EMS - History of Present Illness MD Complaint: seizure Onset/Timin -: hour(s) Description of Episode: tonic-clonic movement -: second(s) Witnessed: yes - by bystander Trauma: No Seizure History: known seizure disorder Place: other Possible Precipitating Event: none Treatments Prior to Arrival: none - Related Data Home Medications Medication Instructions Recorded Confirmed Loratadine [Claritin] 10 mg PO DAILY 01/28/18 12/02/22 Montelukast [Singulair] 10 mg PO DAILY 01/28/18 12/02/22 ARIPiprazole [Abilify] 10 mg PO DAILY 04/28/20 12/02/22 Albuterol Sulfate [Proair Hfa] 2 puff INHALATION RT-Q6H PRN 07/25/20 12/02/22 Fluticasone Propion/Salmeterol 2 puff INHALATION RT-DAILY 07/25/20 12/02/22 [Advair Hfa 230-21 Mcg Inhaler] Naproxen [Naprosyn] 500 mg PO Q12HR PRN 07/25/20 12/02/22 Valtoco 10 Mg/[place] 1 spray NASAL DIRECTED PRN 02/24/22 12/02/22 Butalb/APAP/Caff 50-325-40Mg 1 tab PO BID 12/02/22 12/02/22 [Fioricet 50-325-40] Cholecalciferol [Vitamin D3 (25 50 mcg PO DAILY 12/02/22 12/02/22 Mcg = 1000 Iu)] Topiramate [Topamax] See Taper PO DAILY 12/02/22 12/02/22 levETIRAcetam [Keppra] 1,500 mg PO Q12HR 12/02/22 12/02/22 Allergies Allergy/AdvReac Type Severity Reaction Status Date / Time diphenhydramine Allergy Confusion Verified 12/02/22 13:05 [From Benadryl] Sulfa (Sulfonamide Allergy Swelling Verified 12/02/22 13:05 Antibiotics) sulfamethoxazole Allergy Swelling Verified 12/02/22 13:05 [From Bactrim] trimethoprim [From Bactrim] Allergy Swelling Verified 12/02/22 13:05 Review of Systems ROS Statement: Those systems with pertinent positive or pertinent negative responses have been documented in the HPI. ROS Other: All systems not noted in ROS Statement are negative. 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 Date of last positivie culture/infection: 2005 MDRO Source:: leg Past Surgical History: Hernia Repair Additional Past Surgical History / Comment(s): forehead reconstruction for head lac as child Past Anesthesia/Blood Transfusion Reactions: No Reported Reaction Past Psychological History: Bipolar, Depression, PTSD, Schizoaffective Disorder Smoking Status: Former smoker Past Alcohol Use History: Occasional Past Drug Use History: Marijuana - Past Family History Father Family Medical History: Cancer Additional Family Medical History / Comment(s): ADOPTED-NOT TOTALLY SURE OF HHX Mother Family Medical History: Cancer Additional Family Medical History / Comment(s): ADOPTED-NOT TOTALLY SURE OF HHX General Exam General appearance: alert, in no apparent distress Head exam: Present: atraumatic, normocephalic Eye exam: Present: normal appearance Neck exam: Present: normal inspection, full ROM. Absent: tenderness Respiratory exam: Present: normal lung sounds bilaterally. Absent: respiratory distress, wheezes, rales, rhonchi, stridor Cardiovascular Exam: Present: regular rate, normal rhythm, normal heart sounds. Absent: systolic murmur, diastolic murmur, rubs, gallop GI/Abdominal exam: Present: soft. Absent: distended, tenderness, guarding, rebound, rigid, mass Extremities exam: Present: normal inspection, normal capillary refill. Absent: pedal edema, calf tenderness Back exam: Present: normal inspection. Absent: CVA tenderness (R), CVA tender ness (L) Neurological exam: Present: CN II-XII intact, reflexes normal. Absent: motor sensory deficit Skin exam: Present: warm, dry, intact, normal color. Absent: rash Course Vital Signs 11/29/22 11/29/22 11/29/22 14:37 14:52 16:00 Temperature 97.5 F L 98.2 F Pulse Rate 84 78 87 Respiratory 18 18 18 Rate Blood Pressure 183/127 134/78 137/78 O2 Sat by Pulse 99 98 98 Oximetry Medical Decision Making - Medical Decision Making Was pt. sent in by a medical professional or institution (, AXEL, SERVICE DISMANTLER, urgent care, hospital, or halfway...) When possible be specific @ -[No] Did you speak to anyone other than the patient for history (EMS, parent, family, police, friend...)? What history was obtained from this source @ -[No] Did you review nursing and triage notes (agree or disagree)? Why? @ -[I reviewed and agree with nursing and triage notes] Were old charts reviewed (outside hosp., previous admission, EMS record, old EKG, old radiological studies, urgent care reports/EKG's, halfway records)? Report findings @ -[No old charts were reviewed] Differential Diagnosis (chest pain, altered mental status, abdominal pain women, abdominal pain men, vaginal bleeding, weakness, fever, dyspnea, syncope, headache, dizziness, GI bleed, back pain, seizure, CVA, palpatations, mental health, musculoskeletal)? @ -[Differential Seizure: Recurrent seizure disorder, febrile seizure, alcohol withdrawal, stimulants, meningitis, encephalitis, intercranial hemorrhage, intracranial tumor, stroke, eclampsia, thyrotoxicosis, hypocalcemia, hyponatremia, hypernatremia, hypomagnesemia, psychogenic, this is not meant to be an all-inclusive list. EKG interpreted by me (3pts min.). @ -[As above] X-rays interpreted by me (1pt min.). @ -[None done] CT interpreted by me (1pt min.). @ -[None done] U/S interpreted by me (1pt. min.). @ -[None done] What testing was considered but not performed or refused? (CT, X-rays, U/S, labs)? Why? @ -[None] What meds were considered but not given or refused? Why? @ -[None] Did you discuss the management of the patient with other professionals (pr ofessionals i.e. Dr., PA, SERVICE DISMANTLER, lab, RT, psych nurse, social studies teacher, stone mill operator, teacher, environmental conservation officer, manager case management)? Give summary @ -[No] Was smoking cessation discussed for >3mins.? @ -[No] Was critical care preformed (if so, how long)? @ -[No] Were there social determinants of health that impacted care today? How? (Homelessness, low income, unemployed, alcoholism, drug addiction, tra nsportation, low edu. Level, literacy, decrease access to med. care, penitentiary, rehab)? @ -[No] Was there de-escalation of care discussed even if they declined (Discuss DNR or withdrawal of care, Hospice)? DNR status @ -[No] What co-morbidities impacted this encounter? (DM, HTN, Smoking, COPD, CAD, Cancer, CVA, ARF, Chemo, Hep., AIDS, mental health diagnosis, sleep apnea, morbid obesity)? @ -[None] Was patient admitted / discharged? Hospital course, mention meds given and route, prescriptions, significant lab abnormalities, going to OR and other pertinent info. @ -[Patient is 32-year-old man with chronic seizure disorder. He is evaluated here after seizure which was uncomplicated. He has returned to baseline with no new complaints and stable for discharge. Discussed return parameters as well as following up with his neurologist regarding any necessary medication changes Undiagnosed new problem with uncertain prognosis? @ -[No] Drug Therapy requiring intensive monitoring for toxicity (Heparin, Nitro, Insulin, Cardizem)? @ -[No] Were any procedures done? @ -[No] Diagnosis/symptom? @ -[Acute recurrent seizure Acute, or Chronic, or Acute on Chronic? @ -[Acute Uncomplicated (without systemic symptoms) or Complicated (systemic symptoms)? @ -[Uncomplicated Side effects of treatment? @ -[No] Exacerbation, Progression, or Severe Exacerbation? @ -[No] Poses a threat to life or bodily function? How? (Chest pain, USA, PA, pneumonia, PE, COPD, DKA, ARF, appy, cholecystitis, CVA, Diverticulitis, Homicidal, Suicidal, threat to staff... and all critical care pts) @ -[No] - Lab Data Result diagrams: 11/29/22 15:06 11/29/22 15:06 Lab Results 11/29/22 11/29/22 11/29/22 Range/Units 15:06 15:06 15:06 WBC 6.6 (3.8-10.6) k/uL RBC 5.39 (4.30-5.90) m/uL Hgb 15.6 (13.0-17.5) gm/dL Hct 47.5 (39.0-53.0) % MCV 88.1 (80.0-100.0) fL MCH 28.9 (25.0-35.0) pg MCHC 32.8 (31.0-37.0) g/dL RDW 12.9 (11.5-15.5) % Plt Count 259 (150-450) k/uL MPV 7.5 Neutrophils % 57 % Lymphocytes % 30 % Monocytes % 9 % Eosinophils % 2 % Basophils % 1 % Neutrophils # 3.8 (1.3-7.7) k/uL Lymphocytes # 1.9 (1.0-4.8) k/uL Monocytes # 0.6 (0-1.0) k/uL Eosinophils # 0.1 (0-0.7) k/uL Basophils # 0.0 (0-0.2) k/uL Sodium 139 (137-145) mmol/L Potassium 4.2 (3.5-5.1) mmol/L Chloride 101 (98-107) mmol/L Carbon Dioxide 27 (22-30) mmol/L Anion Gap 11 mmol/L BUN 10 (9-20) mg/dL Creatinine 0.96 (0.66-1.25) mg/dL Est GFR (CKD-EPI)AfAm >90 (>60 ml/min/1.73 sqM) Est GFR (CKD-EPI)NonAf >90 (>60 ml/min/1.73 sqM) Glucose 85 (74-99) mg/dL Calcium 10.1 (8.4-10.2) mg/dL Magnesium 2.0 (1.6-2.3) mg/dL Total Bilirubin 0.7 (0.2-1.3) mg/dL AST 58 (17-59) U/L ALT 88 H (4-49) U/L Alkaline Phosphatase 65 (38-126) U/L Total Protein 7.9 (6.3-8.2) g/dL Albumin 4.7 (3.5-5.0) g/dL Urine Opiates Screen (NotDetected) Ur Oxycodone Screen (NotDetected) Urine Methadone Screen (NotDetected) Ur Propoxyphene Screen (NotDetected) Ur Barbiturates Screen (NotDetected) U Tricyclic Antidepress (NotDetected) Levetiracetam 22.2 (3.0-60.0) ug/mL Ur Phencyclidine Scrn (NotDetected) Ur Amphetamines Screen (NotDetected) U Methamphetamines Scrn (NotDetected) U Benzodiazepines Scrn (NotDetected) Urine Cocaine Screen (NotDetected) U Marijuana (THC) Screen (NotDetected) 11/29/22 Range/Units 15:18 WBC (3.8-10.6) k/uL RBC (4.30-5.90) m/uL Hgb (13.0-17.5) gm/dL Hct (39.0-53.0) % MCV (80.0-100.0) fL MCH (25.0-35.0) pg MCHC (31.0-37.0) g/dL RDW (11.5-15.5) % Plt Count (150-450) k/uL MPV Neutrophils % % Lymphocytes % % Monocytes % % Eosinophils % % Basophils % % Neutrophils # (1.3-7.7) k/uL Lymphocytes # (1.0-4.8) k/uL Monocytes # (0-1.0) k/uL Eosinophils # (0-0.7) k/uL Basophils # (0-0.2) k/uL Sodium (137-145) mmol/L Potassium (3.5-5.1) mmol/L Chloride (98-107) mmol/L Carbon Dioxide (22-30) mmol/L Anion Gap mmol/L BUN (9-20) mg/dL Creatinine (0.66-1.25) mg/dL Est GFR (CKD-EPI)AfAm (>60 ml/min/1.73 sqM) Est GFR (CKD-EPI)NonAf (>60 ml/min/1.73 sqM) Glucose (74-99) mg/dL Calcium (8.4-10.2) mg/dL Magnesium (1.6-2.3) mg/dL Total Bilirubin (0.2-1.3) mg/dL AST (17-59) U/L ALT (4-49) U/L Alkaline Phosphatase (38-126) U/L Total Protein (6.3-8.2) g/dL Albumin (3.5-5.0) g/dL Urine Opiates Screen Not Detected (NotDetected) Ur Oxycodone Screen Not Detected (NotDetected) Urine Methadone Screen Not Detected (NotDetected) Ur Propoxyphene Screen Not Detected (NotDetected) Ur Barbiturates Screen Detected H (NotDetected) U Tricyclic Antidepress Not Detected (NotDetected) Levetiracetam (3.0-60.0) ug/mL Ur Phencyclidine Scrn Not Detected (NotDetected) Ur Amphetamines Screen Not Detected (NotDetected) U Methamphetamines Scrn Not Detected (NotDetected) U Benzodiazepines Scrn Detected H (NotDetected) Urine Cocaine Screen Not Detected (NotDetected) U Marijuana (THC) Screen Not Detected (NotDetected) Disposition Clinical Impression: Recurrent seizures Disposition: HOME SELF-CARE Condition: Good Instructions (If sedation given, give patient instructions): Recurrent Seizures in Adults (ED) Is patient prescribed a controlled substance at d/c from ED?: No Referrals: Marycarmen Gaston MD [Primary Care Provider] - 1-2 days
[2022-11-29 15:27] LABS: Basophils % (A) 1 %; Eosinophils # (A) 0.1 k/uL (0-0.7); Eosinophils % (A) 2 %; HCT 47.5 % (39.0-53.0); HGB 15.6 gm/dL (13.0-17.5); Lymphocytes # (A) 1.9 k/uL (1.0-4.8); Lymphocytes % (A) 30 %; MCH 28.9 pg (25.0-35.0); MCHC 32.8 g/dL (31.0-37.0); MCV 88.1 fL (80.0-100.0); Mean Platelet Volume 7.5; Monocytes # (A) 0.6 k/uL (0-1.0); Monocytes % (A) 9 %; Neutrophils # (A) 3.8 k/uL (1.3-7.7); Neutrophils % (A) 57 %; Platelet Count 259 k/uL (150-450); RBC 5.39 m/uL (4.30-5.90); RDW 12.9 % (11.5-15.5); WBC 6.6 k/uL (3.8-10.6)
[2022-11-29 15:37] LABS: ALT 88 U/L (4-49); AST 58 U/L (17-59); African American GFR (CKD) >90 (>60 ml/min/1.73 sqM); Albumin 4.7 g/dL (3.5-5.0); Alkaline Phosphatase 65 U/L (38-126); Anion Gap 11 mmol/L; Blood Urea Nitrogen 10 mg/dL (9-20); Calcium 10.1 mg/dL (8.4-10.2); Carbon Dioxide 27 mmol/L (22-30); Chloride 101 mmol/L (98-107); Glucose 85 mg/dL (74-99); Non-African American GFR(CKD) >90 (>60 ml/min/1.73 sqM); Potassium 4.2 mmol/L (3.5-5.1); Sodium 139 mmol/L (137-145); Total Bilirubin 0.7 mg/dL (0.2-1.3); Total Protein 7.9 g/dL (6.3-8.2)
[2022-11-29 15:57] LABS: Amphetamine Screen,Urine Not Detected (NotDetected); Barbiturate Screen,Urine Detected (NotDetected); Benzodiazepines Screen,Urine Detected (NotDetected); Cocaine Screen,Urine Not Detected (NotDetected); Methadone Screen, Urine Not Detected (NotDetected); Opiate Screen,Urine Not Detected (NotDetected); Oxycodone Screen, Urine Not Detected (NotDetected); Phencyclidine Screen,Urine Not Detected (NotDetected); Tricyclic Antidepressant,Urine Not Detected (NotDetected); Urn Cannabinoid Scrn Not Detected (NotDetected)
[2022-11-29 16:50] VITALS: BP 137/78; PULSE 87; TEMP 98.2
== END 2022-11-29 16:52 | disposition home or self-care (01) ==
LOC: EC 14:30
DX: G40.909 Epilepsy, unspecified, not intractable, without status epilepticus (principal); J45.909 Unspecified asthma, uncomplicated; F31.9 Bipolar disorder, unspecified; F12.90 Cannabis use, unspecified, uncomplicated; Z87.891 Personal history of nicotine dependence; Z88.1 Allergy status to other antibiotic agents; Z88.2 Allergy status to sulfonamides; Z88.8 Allergy status to other drugs, medicaments and biological substances; Z79.51 Long term (current) use of inhaled steroids; Z79.899 Other long term (current) drug therapy
CPT/HCPCS: 36415; 80053; 80177; 83735; 85025; 80306; 99284; 96374; J2060

== ENCOUNTER 2023-04-06 20:51 | Emergency (ER) | payer OTHER ==
--- NOTE | 2023-04-06 21:27 | ED ---
General Adult HPI - General Chief complaint: Seizure Stated complaint: Seizure Time Seen by Provider: 04/06/23 21:16 Source: patient, EMS Mode of arrival: EMS - History of Present Illness Initial comments: 33-year-old male presents to the emergency department via EMS for evaluation of seizure. Patient has a history of seizure disorder and takes Keppra twice daily for this. He states he has been taking his medications as prescribed. He does report frequent seizures. States that he was waiting for the bus today when he saw the light which caused him to seize. He states that this lasted around 1 to 2 minutes according to his friends. He did not hit his head or injure anything else when he seized. He denies any current symptoms including chest pain, shortness of breath, abdominal pain, dysuria. - Related Data Home Medications Medication Instructions Recorded Confirmed Loratadine [Claritin] 10 mg PO DAILY 01/28/18 12/02/22 Montelukast [Singulair] 10 mg PO DAILY 01/28/18 12/02/22 ARIPiprazole [Abilify] 10 mg PO DAILY 04/28/20 12/02/22 Albuterol Sulfate [Proair Hfa] 2 puff INHALATION RT-Q6H PRN 07/25/20 12/02/22 Fluticasone Propion/Salmeterol 2 puff INHALATION RT-DAILY 07/25/20 12/02/22 [Advair Hfa 230-21 Mcg Inhaler] Naproxen [Naprosyn] 500 mg PO Q12HR PRN 07/25/20 12/02/22 Valtoco 10 Mg/[place] 1 spray NASAL DIRECTED PRN 02/24/22 12/02/22 Butalb/APAP/Caff 50-325-40Mg 1 tab PO BID 12/02/22 12/02/22 [Fioricet 50-325-40] Cholecalciferol [Vitamin D3 (25 50 mcg PO DAILY 12/02/22 12/02/22 Mcg = 1000 Iu)] Topiramate [Topamax] See Taper PO DAILY 12/02/22 12/02/22 levETIRAcetam [Keppra] 1,500 mg PO Q12HR 12/02/22 12/02/22 Allergies Allergy/AdvReac Type Severity Reaction Status Date / Time diphenhydramine Allergy Confusion Verified 04/06/23 21:00 [From Benadryl] Sulfa (Sulfonamide Allergy Swelling Verified 04/06/23 21:00 Antibiotics) sulfamethoxazole Allergy Swelling Verified 04/06/23 21:00 [From Bactrim] trimethoprim [From Bactrim] Allergy Swelling Verified 04/06/23 21:00 Review of Systems ROS Statement: Those systems with pertinent positive or pertinent negative responses have been documented in the HPI. ROS Other: All systems not noted in ROS Statement are negative. 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 Date of last positivie culture/infection: 2005 MDRO Source:: leg Past Surgical History: Hernia Repair Additional Past Surgical History / Comment(s): forehead reconstruction for head lac as child Past Anesthesia/Blood Transfusion Reactions: No Reported Reaction Past Psychological History: Bipolar, Depression, PTSD, Schizoaffective Disorder Smoking Status: Former smoker Past Alcohol Use History: Occasional Past Drug Use History: Marijuana - Past Family History Father Family Medical History: Cancer Additional Family Medical History / Comment(s): ADOPTED-NOT TOTALLY SURE OF HHX Mother Family Medical History: Cancer Additional Family Medical History / Comment(s): ADOPTED-NOT TOTALLY SURE OF HHX General Exam Limitations: no limitations General appearance: alert, in no apparent distress Course Vital Signs 04/06/23 04/06/23 20:55 22:54 Temperature 98.9 F Pulse Rate 82 77 Respiratory 16 16 Rate Blood Pressure 134/91 136/88 O2 Sat by Pulse 95 96 Oximetry Medical Decision Making - Medical Decision Making Was pt. sent in by a medical professional or institution (, PA, STRETCHING PRESS OPERATOR, urgent care, hospital, or penitentiary...) When possible be specific @ -No Did you speak to anyone other than the patient for history (EMS, parent, family, police, friend...)? What history was obtained from this source @ -EMS, friend in room Did you review nursing and triage notes (agree or disagree)? Why? @ -I reviewed and agree with nursing and triage notes Were old charts reviewed (outside hosp., previous admission, EMS record, old EKG, old radiological studies, urgent care reports/EKG's, penitentiary records)? Report findings @ -No old charts were reviewed Differential Diagnosis (chest pain, altered mental status, abdominal pain women, abdominal pain men, vaginal bleeding, weakness, fever, dyspnea, syncope, headache, dizziness, GI bleed, back pain, seizure, CVA, palpatations, mental health, musculoskeletal)? @ -Not applicable EKG interpreted by me (3pts min.). @ -EKG at 2232 shows sinus rhythm with first-degree AV block compared to prior which is the same. Rate 75, CT 244, QRS 111, QTQTc [id number] X-rays interpreted by me (1pt min.). @ -None done CT interpreted by me (1pt min.). @ -None done U/S interpreted by me (1pt. min.). @ -None done What testing was considered but not performed or refused? (CT, X-rays, U/S, labs)? Why? @ -None What meds were considered but not given or refused? Why? @ -None Did you discuss the management of the patient with other professionals (professionals i.e. , PA, STRETCHING PRESS OPERATOR, lab, RT, psych nurse, social work case manager, subpoena server, teacher, lead security officer, caser up)? Give summary @ -No Was smoking cessation discussed for >3mins.? @ -No Was critical care preformed (if so, how long)? @ -No Were there social determinants of health that impacted care today? How? (Homelessness, low income, unemployed, alcoholism, drug addiction, transportation, low edu. Level, literacy, decrease access to med. care, skilled nursing, rehab)? @ -No Was there de-escalation of care discussed even if they declined (Discuss DNR or withdrawal of care, Hospice)? DNR status @ -No What co-morbidities impacted this encounter? (DM, HTN, Smoking, COPD, CAD, Cancer, CVA, ARF, Chemo, Hep., AIDS, mental health diagnosis, sleep apnea, morbid obesity)? @ -None Was patient admitted / discharged? Hospital course, mention meds given and route, prescriptions, significant lab abnormalities, going to OR and other pertinent info. @ -Discharge. Patient presented to the emergency department for evaluation of seizure. Patient states that he was getting onto the bus when he saw bright flashing lights which caused him to seize. This lasted around 1 to 2 minutes. He was brought in by EMS for this. When seen in room denies head injury. He has a history of seizure disorder and takes Keppra twice daily. Patient has had no recurrent issues in the emergency department. Patient was given a dose of Ativan and laboratory studies were completed. CBC and CMP essentially unremarkable. EKG comparable to prior. Patient feeling well and will be discharged home. Patient understanding and agreeable with plan. Patient stable at time of discharge. Case discussed with Dr. Mullins Undiagnosed new problem with uncertain prognosis? @ -No Drug Therapy requiring intensive monitoring for toxicity (Heparin, Nitro, Insulin, Cardizem)? @ -No Were any procedures done? @ -No Diagnosis/symptom? @ -Seizure disorder Acute, or Chronic, or Acute on Chronic? @ -Chronic Uncomplicated (without systemic symptoms) or Complicated (systemic symptoms)? @ -uncomplicated Side effects of treatment? @ -No Exacerbation, Progression, or Severe Exacerbation? @ -No Poses a threat to life or bodily function? How? (Chest pain, [place], [place], pneumonia, PE, COPD, DKA, ARF, appy, cholecystitis, CVA, Diverticulitis, Homicidal, Suicidal, threat to staff... and all critical care pts) @ -No - Lab Data Result diagrams: 04/06/23 21:39 04/06/23 21:39 Lab Results 04/06/23 04/06/23 Range/Units 21:39 21:39 WBC 7.6 (3.8-10.6) k/uL RBC 5.16 (4.30-5.90) m/uL Hgb 15.3 (13.0-17.5) gm/dL Hct 44.7 (39.0-53.0) % MCV 86.6 (80.0-100.0) fL MCH 29.5 (25.0-35.0) pg MCHC 34.1 (31.0-37.0) g/dL RDW 12.7 (11.5-15.5) % Plt Count 269 (150-450) k/uL MPV 7.0 Neutrophils % 61 % Lymphocytes % 27 % Monocytes % 7 % Eosinophils % 3 % Basophils % 1 % Neutrophils # 4.7 (1.3-7.7) k/uL Lymphocytes # 2.1 (1.0-4.8) k/uL Monocytes # 0.6 (0-1.0) k/uL Eosinophils # 0.2 (0-0.7) k/uL Basophils # 0.1 (0-0.2) k/uL Sodium 140 (137-145) mmol/L Potassium 4.2 (3.5-5.1) mmol/L Chloride 107 (98-107) mmol/L Carbon Dioxide 25 (22-30) mmol/L Anion Gap 8 mmol/L BUN 21 H (9-20) mg/dL Creatinine 0.87 (0.66-1.25) mg/dL Est GFR (CKD-EPI)AfAm >90 (>60 ml/min/1.73 sqM) Est GFR (CKD-EPI)NonAf >90 (>60 ml/min/1.73 sqM) Glucose 88 (74-99) mg/dL Calcium 9.4 (8.4-10.2) mg/dL Magnesium 2.1 (1.6-2.3) mg/dL Total Bilirubin 0.4 (0.2-1.3) mg/dL AST 42 (17-59) U/L ALT 63 H (4-49) U/L Alkaline Phosphatase 65 (38-126) U/L Total Protein 7.5 (6.3-8.2) g/dL Albumin 4.7 (3.5-5.0) g/dL Disposition Clinical Impression: Seizure disorder Disposition: HOME SELF-CARE Condition: Stable Instructions (If sedation given, give patient instructions): Recurrent Seizures in Adults (ED) Additional Instructions: Please follow up with your neurologist as scheduled. Return to the emergency department for new or worsening symptoms. Is patient prescribed a controlled substance at d/c from ED?: No Referrals: None,Stated [Primary Care Provider] - 1-2 days
[2023-04-06 22:05] LABS: Basophils # (A) 0.1 k/uL (0-0.2); Basophils % (A) 1 %; Eosinophils # (A) 0.2 k/uL (0-0.7); Eosinophils % (A) 3 %; HCT 44.7 % (39.0-53.0); HGB 15.3 gm/dL (13.0-17.5); Lymphocytes # (A) 2.1 k/uL (1.0-4.8); Lymphocytes % (A) 27 %; MCH 29.5 pg (25.0-35.0); MCHC 34.1 g/dL (31.0-37.0); MCV 86.6 fL (80.0-100.0); Monocytes # (A) 0.6 k/uL (0-1.0); Monocytes % (A) 7 %; Neutrophils # (A) 4.7 k/uL (1.3-7.7); Neutrophils % (A) 61 %; Platelet Count 269 k/uL (150-450); RBC 5.16 m/uL (4.30-5.90); RDW 12.7 % (11.5-15.5); WBC 7.6 k/uL (3.8-10.6)
[2023-04-06] MEDS: SODIUM CHLORIDE 0.9% 1,000 ML IV STA (22:12)
[2023-04-06] MEDS: LORazepam 2 MG/ML INJ IV STA (22:14)
[2023-04-06 22:26] LABS: ALT 63 U/L (4-49); AST 42 U/L (17-59); African American GFR (CKD) >90 (>60 ml/min/1.73 sqM); Albumin 4.7 g/dL (3.5-5.0); Alkaline Phosphatase 65 U/L (38-126); Anion Gap 8 mmol/L; Blood Urea Nitrogen 21 mg/dL (9-20); Calcium 9.4 mg/dL (8.4-10.2); Carbon Dioxide 25 mmol/L (22-30); Chloride 107 mmol/L (98-107); Glucose 88 mg/dL (74-99); Magnesium 2.1 mg/dL (1.6-2.3); Non-African American GFR(CKD) >90 (>60 ml/min/1.73 sqM); Potassium 4.2 mmol/L (3.5-5.1); Sodium 140 mmol/L (137-145); Total Bilirubin 0.4 mg/dL (0.2-1.3); Total Protein 7.5 g/dL (6.3-8.2)
[2023-04-06 23:13] LABS: Amorphous Sediment,Urine Rare /hpf; Appearance,Urine Clear (Clear); Bilirubin,Urine Negative (Negative); Blood,Urine Negative (Negative); Color,Urine Light Yellow; Glucose,Urine (UA) Negative (Negative); Hyaline Casts,Urine 7 /lpf (0-2); Ketones,Urine Negative (Negative); Leukocyte Esterase,Urine Negative (Negative); Mucus,Urine Occasional /hpf; Nitrite,Urine Negative (Negative); PH, Urine 5.5 (5.0-8.0); Protein,Urine 1+ (Negative); RBC,Urine 1 /hpf (0-5); Specific Gravity,Urine 1.029 (1.001-1.035); Squamous Epithelial Cell,Urine <1 /hpf (0-4); Urobilinogen,Urine <2.0 mg/dL (<2.0); WBC,Urine 2 /hpf (0-5)
[2023-04-07 00:04] VITALS: BP 130/76; PULSE 88; RESP 18; TEMP 98
== END 2023-04-06 23:47 | disposition home or self-care (01) ==
LOC: EC 20:51
DX: G40.909 Epilepsy, unspecified, not intractable, without status epilepticus (principal); J45.909 Unspecified asthma, uncomplicated; F31.9 Bipolar disorder, unspecified; F12.90 Cannabis use, unspecified, uncomplicated; Z87.891 Personal history of nicotine dependence; Z79.899 Other long term (current) drug therapy; Z88.2 Allergy status to sulfonamides; Z88.1 Allergy status to other antibiotic agents; Z88.8 Allergy status to other drugs, medicaments and biological substances; Z79.51 Long term (current) use of inhaled steroids
CPT/HCPCS: 36415; 93005; 80053; 80177; 83735; 85025; 81001; 99284; 96374; J2060

== ENCOUNTER 2023-08-05 02:10 | Observation (INO) | payer OTHER ==
[2023-08-05 03:30] LABS: Basophils # (A) 0.1 k/uL (0-0.2); Basophils % (A) 1 %; Eosinophils # (A) 0.2 k/uL (0-0.7); Eosinophils % (A) 2 %; HCT 44.5 % (39.0-53.0); HGB 15.3 gm/dL (13.0-17.5); Lymphocytes # (A) 2.2 k/uL (1.0-4.8); Lymphocytes % (A) 30 %; MCH 29.7 pg (25.0-35.0); MCHC 34.4 g/dL (31.0-37.0); MCV 86.4 fL (80.0-100.0); Mean Platelet Volume 7.7; Monocytes # (A) 0.7 k/uL (0-1.0); Monocytes % (A) 10 %; Neutrophils # (A) 4.1 k/uL (1.3-7.7); Neutrophils % (A) 56 %; Platelet Count 269 k/uL (150-450); RBC 5.15 m/uL (4.30-5.90); RDW 12.8 % (11.5-15.5); WBC 7.4 k/uL (3.8-10.6)
[2023-08-05 03:39] LABS: ALT 67 U/L (4-49); AST 47 U/L (17-59); African American GFR (CKD) >90 (>60 ml/min/1.73 sqM); Albumin 4.4 g/dL (3.5-5.0); Alkaline Phosphatase 61 U/L (38-126); Anion Gap 9 mmol/L; Blood Urea Nitrogen 17 mg/dL (9-20); Calcium 8.9 mg/dL (8.4-10.2); Carbon Dioxide 25 mmol/L (22-30); Chloride 106 mmol/L (98-107); Glucose 95 mg/dL (74-99); Magnesium 1.9 mg/dL (1.6-2.3); Non-African American GFR(CKD) >90 (>60 ml/min/1.73 sqM); Potassium 4.1 mmol/L (3.5-5.1); Sodium 140 mmol/L (137-145); Total Bilirubin 0.5 mg/dL (0.2-1.3); Total Protein 7.1 g/dL (6.3-8.2)
--- NOTE | 2023-08-05 03:40 | ED ---
General Adult HPI - General Chief complaint: Seizure Stated complaint: Seizure Time Seen by Provider: 08/05/23 02:40 Source: patient, EMS, RN notes reviewed, old records reviewed Mode of arrival: EMS Limitations: no limitations - History of Present Illness Initial comments: Patient is a 33-year-old male who presents emergency department for seizure as well as vagal nerve stimulator malfunction. States he had a seizure at home shortly prior to arrival that lasted for approximately 30 seconds to 2 minutes. Was witnessed by . Possibly was unresponsive afterwards however could have been confusion. Patient was confused afterwards but denies biting his tongue or having incontinence. His vagal nerve stimulator implant has continued firing since that time. Patient received fentanyl prior to arrival. He also received Zofran. His only complaint at this time is the nerve stimulator firing and its discomfort over the left side of his chest. States he has been compliant with his Keppra. Denies any other acute complaints at this time. Presents for further evaluation. Does smoke marijuana. - Related Data Home Medications Medication Instructions Recorded Confirmed Loratadine [Claritin] 10 mg PO DAILY 01/28/18 12/02/22 Montelukast [Singulair] 10 mg PO DAILY 01/28/18 12/02/22 ARIPiprazole [Abilify] 10 mg PO DAILY 04/28/20 12/02/22 Albuterol Sulfate [Proair Hfa] 2 puff INHALATION RT-Q6H PRN 07/25/20 12/02/22 Fluticasone Propion/Salmeterol 2 puff INHALATION RT-DAILY 07/25/20 12/02/22 [Advair Hfa 230-21 Mcg Inhaler] Naproxen [Naprosyn] 500 mg PO Q12HR PRN 07/25/20 12/02/22 Valtoco 10 Mg/[place] 1 spray NASAL DIRECTED PRN 02/24/22 12/02/22 Butalb/APAP/Caff 50-325-40Mg 1 tab PO BID 12/02/22 12/02/22 [Fioricet 50-325-40] Cholecalciferol [Vitamin D3 (25 50 mcg PO DAILY 12/02/22 12/02/22 Mcg = 1000 Iu)] Topiramate [Topamax] See Taper PO DAILY 12/02/22 12/02/22 levETIRAcetam [Keppra] 1,500 mg PO Q12HR 12/02/22 12/02/22 Allergies Allergy/AdvReac Type Severity Reaction Status Date / Time diphenhydramine Allergy Confusion Verified 04/06/23 21:00 [From Benadryl] Sulfa (Sulfonamide Allergy Swelling Verified 04/06/23 21:00 Antibiotics) sulfamethoxazole Allergy Swelling Verified 04/06/23 21:00 [From Bactrim] trimethoprim [From Bactrim] Allergy Swelling Verified 04/06/23 21:00 Review of Systems ROS Statement: Those systems with pertinent positive or pertinent negative responses have been documented in the HPI. Review of Systems: CONST: Denies fever EYES: Denies blurry vision ENT: Denies nasal congestion C/V: Denies Chest pain RESP: Denies shortness of breath GI: Denies abdominal pain : Denies dysuria SKIN: Denies rash. MSK: Denies joint pain. NEURO: Denies headache ROS Other: All systems not noted in ROS Statement are negative. 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 Date of last positivie culture/infection: 2005 MDRO Source:: leg Past Surgical History: Hernia Repair Additional Past Surgical History / Comment(s): forehead reconstruction for head lac as child Past Anesthesia/Blood Transfusion Reactions: No Reported Reaction Past Psychological History: Bipolar, Depression, PTSD, Schizoaffective Disorder Smoking Status: Former smoker Past Alcohol Use History: Occasional Past Drug Use History: Marijuana - Past Family History Father Family Medical History: Cancer Additional Family Medical History / Comment(s): ADOPTED-NOT TOTALLY SURE OF HHX Mother Family Medical History: Cancer Additional Family Medical History / Comment(s): ADOPTED-NOT TOTALLY SURE OF HHX General Exam - General Exam Comments Initial Comments: General: He is in mild discomfort from the vagal nerve stimulator. HEAD: Normal with no signs of head trauma. EYES: PERRLA, EOMI, conjunctiva normal, no discharge. Reveals a 3 mm and equal bilaterally. ENT: Hearing grossly intact, normal oropharynx. RESPIRATORY: Clear breath sounds bilaterally. No wheezes, rales, or rhonchi. C/V: Regular rate and rhythm. S1 and S2 auscultated, no edema, peripheral pulses 2+ and intact throughout ABD: Abd is soft, nontender, nondistended EXT: Normal range of motion, no obvious deformity SKIN: No rashes or lesions observed on exposed skin. Neurostimulator skin appears well-healed over her left chest. NEURO: Alert and oriented x 4. Cranial nerves II-XII intact. No focal sensory or strength deficits. No acute seizure activity at this time. Limitations: no limitations Course Vital Signs 08/05/23 08/05/23 02:15 04:00 Temperature 98.5 F Pulse Rate 86 84 Respiratory 16 12 Rate Blood Pressure 153/103 135/93 O2 Sat by Pulse 95 95 Oximetry Medical Decision Making - Medical Decision Making Was pt. sent in by a medical professional or institution (, PA, GROUP HOME SUPERVISOR, urgent care, hospital, or fci...) When possible be specific @ -No Did you speak to anyone other than the patient for history (EMS, parent, family, police, friend...)? What history was obtained from this source @ -No Did you review nursing and triage notes (agree or disagree)? Why? @ -I reviewed and agree with nursing and triage notes Were old charts reviewed (outside hosp., previous admission, EMS record, old EKG, old radiological studies, urgent care reports/EKG's, fci records)? Report findings @ -Medication list reviewed for antiepileptic medications. Differential Diagnosis (chest pain, altered mental status, abdominal pain women, abdominal pain men, vaginal bleeding, weakness, fever, dyspnea, syncope, headache, dizziness, GI bleed, back pain, seizure, CVA, palpatations, mental health, musculoskeletal)? @ -Differential Seizure: Recurrent seizure disorder, febrile seizure, alcohol withdrawal, stimulants, meningitis, encephalitis, intercranial hemorrhage, intracranial tumor, stroke, eclampsia, thyrotoxicosis, hypocalcemia, hyponatremia, hypernatremia, hypomagnesemia, psychogenic, this is not meant to be an all-inclusive list. EKG interpreted by me (3pts min.). @ -As above X-rays interpreted by me (1pt min.). @ -None done CT interpreted by me (1pt min.). @ -None done U/S interpreted by me (1pt. min.). @ -None done What testing was considered but not performed or refused? (CT, X-rays, U/S, labs)? Why? @ -None What meds were considered but not given or refused? Why? @ -None Did you discuss the management of the patient with other professionals (professionals i.e. , PA, GROUP HOME SUPERVISOR, lab, RT, psych nurse, social services designee, senior biostatistician/group leader, teacher, unemployment insurance hearing officer, case picker)? Give summary @ -I spoke with the admitting physician, Dr. Jewell of [facility] who accepted the admission. Was smoking cessation discussed for >3mins.? @ -No Was critical care preformed (if so, how long)? @ -No Were there social determinants of health that impacted care today? How? (Homelessness, low income, unemployed, alcoholism, drug addiction, transportation, low edu. Level, literacy, decrease access to med. care, retirement, rehab)? @ -No Was there de-escalation of care discussed even if they declined (Discuss DNR or withdrawal of care, Hospice)? DNR status @ -No What co-morbidities impacted this encounter? (DM, HTN, Smoking, COPD, CAD, Cancer, CVA, ARF, Chemo, Hep., AIDS, mental health diagnosis, sleep apnea, morbid obesity)? @ -Epilepsy Was patient admitted / discharged? Hospital course, mention meds given and route, prescriptions, significant lab abnormalities, going to OR and other pertinent info. @ -Patient presents for seizure. Has a history of epilepsy and is on Keppra. States he has been compliant with meds. Currently not having a seizure but v agal nerve stimulation seems to be malfunctioning as it is firing repeatedly. Presents for further evaluation. Vital signs currently within acceptable limits. Magnet was placed over the nerve stimulator which seemed to turn it off and patient states it stopped shocking him. He is more comfortable at this time. We will obtain basic labs and likely admit him for observation. Patient was in agreement this plan. Patient given IV Keppra as well as IV fluids.patient's labs are unremarkable. Has had no subsequent seizures here in the department, and only had 1 seizure outside of the department prior to arrival, however I did recommend admission for observation due to the vagal nerve stimulator malfunction. He was in agreement this plan. He will be admitted at this time. Neurology consulted. I spoke with the admitting physician, Dr. Jewell of [facility] who accepted the admission. Undiagnosed new problem with uncertain prognosis? @ -No Drug Therapy requiring intensive monitoring for toxicity (Heparin, Nitro, Insulin, Cardizem)? @ -No Were any procedures done? @ -No Diagnosis/symptom? @ -Seizure, vagal nerve stimulator malfunction Acute, or Chronic, or Acute on Chronic? @ -Acute Uncomplicated (without systemic symptoms) or Complicated (systemic symptoms)? @ -Complicated Side effects of treatment? @ -No Exacerbation, Progression, or Severe Exacerbation? @ -No Poses a threat to life or bodily function? How? (Chest pain, [place], [place], pneumonia, PE, COPD, DKA, ARF, appy, cholecystitis, CVA, Diverticulitis, Homicidal, Suicidal, threat to staff... and all critical care pts) @ -Yes - Lab Data Result diagrams: 08/05/23 03:18 08/05/23 03:18 Lab Results 08/05/23 08/05/23 Range/Units 03:18 03:18 WBC 7.4 (3.8-10.6) k/uL RBC 5.15 (4.30-5.90) m/uL Hgb 15.3 (13.0-17.5) gm/dL Hct 44.5 (39.0-53.0) % MCV 86.4 (80.0-100.0) fL MCH 29.7 (25.0-35.0) pg MCHC 34.4 (31.0-37.0) g/dL RDW 12.8 (11.5-15.5) % Plt Count 269 (150-450) k/uL MPV 7.7 Neutrophils % 56 % Lymphocytes % 30 % Monocytes % 10 % Eosinophils % 2 % Basophils % 1 % Neutrophils # 4.1 (1.3-7.7) k/uL Lymphocytes # 2.2 (1.0-4.8) k/uL Monocytes # 0.7 (0-1.0) k/uL Eosinophils # 0.2 (0-0.7) k/uL Basophils # 0.1 (0-0.2) k/uL Sodium 140 (137-145) mmol/L Potassium 4.1 (3.5-5.1) mmol/L Chloride 106 (98-107) mmol/L Carbon Dioxide 25 (22-30) mmol/L Anion Gap 9 mmol/L BUN 17 (9-20) mg/dL Creatinine 0.94 (0.66-1.25) mg/dL Est GFR (CKD-EPI)AfAm >90 (>60 ml/min/1.73 sqM) Est GFR (CKD-EPI)NonAf >90 (>60 ml/min/1.73 sqM) Glucose 95 (74-99) mg/dL Calcium 8.9 (8.4-10.2) mg/dL Magnesium 1.9 (1.6-2.3) mg/dL Total Bilirubin 0.5 (0.2-1.3) mg/dL AST 47 (17-59) U/L ALT 67 H (4-49) U/L Alkaline Phosphatase 61 (38-126) U/L Total Protein 7.1 (6.3-8.2) g/dL Albumin 4.4 (3.5-5.0) g/dL - EKG Data -: EKG Interpreted by Me EKG Comments: 12-lead Electrocardiogram Interpretation Note EKG was reviewed and interpreted by myself. 12-lead ECG performed at 0313 is interpreted by me as revealing normal sinus rhythm with first-degree AV block at a rate of 86 beats per minute. [place] is normal. MD interval is 213 ms, QRS duration is 108 ms, QTc is 409 ms.. There were no ST or T wave abnormalities to suggest myocardial ischemia or injury. R wave progression across the precordium was satisfactory. By my interpretation this EKG is non-diagnostic for acute ischemia. Disposition Clinical Impression: Breakthrough seizure, Complication associated with vagal nerve stimulator Disposition: ADMITTED IP TO THIS HOSP Condition: Stable Time of Disposition: 03:56
[2023-08-05] MEDS ORDERED: ONDANSETRON 4 MG/2 ML VIAL IVP PRN (03:56)
[2023-08-05] MEDS ORDERED: NALOXONE 0.4 MG/ML 1 ML VIAL IV PRN (03:56)
[2023-08-05] MEDS ORDERED: ALBUTEROL NEBULIZED 2.5 MG/3 ML INHALATION PRN (03:58)
[2023-08-05] MEDS: SODIUM CHLORIDE 0.9% 1,000 ML IV STA (04:26)
[2023-08-05] MEDS: SODIUM CHLORIDE 0.9% 1,000 ML IV SCH (04:27)
[2023-08-05] MEDS: levETIRAcetam IV 500 MG/5 ML VIAL IVP STA (04:27)
[2023-08-05] MEDS: ACETAMINOPHEN TAB 325 MG TAB PO PRN (12:32)
[2023-08-05] MEDS ORDERED: IBUPROFEN 800 MG TAB PO PRN (13:12)
[2023-08-05] MEDS ORDERED: ALBUTEROL HFA INHALER INHALATION PRN (13:12)
[2023-08-05] MEDS ORDERED: NAPROXEN 250 MG TAB PO PRN (13:12)
[2023-08-05] MEDS ORDERED: BUTALB/APAP/CAFF 50-325-40MG TAB PO PRN (13:12)
[2023-08-05] MEDS ORDERED: HYDROmorphone 0.5 MG/0.5 ML SYRINGE IVP PRN (13:16)
[2023-08-05] MEDS ORDERED: HYDROcodone/APAP 5-325MG 1 EACH TAB PO PRN (13:17)
--- NOTE | 2023-08-05 14:04 | XR ---
EXAMINATION TYPE: XR chest 1V portable DATE OF EXAM: 08/05/2023 1:38 PM CLINICAL INDICATION:Male, 33 years old with history of chest pain; [facility] COMPARISON: None TECHNIQUE: XR chest 1V portable Frontal view of the chest. FINDINGS: Lungs/Pleura: Low lung volumes are present. There is no evidence of pleural effusion, focal consolida tion, or pneumothorax. Pulmonary vascularity: Unremarkable. Heart/mediastinum: Cardiomediastinal silhouette is unremarkable. Musculoskeletal: No acute osseous pathology. Electronic device projects over the left chest. IMPRESSION: Low lung volumes with a generalized hazy appearance which could represent atelectasis.
[2023-08-05] MEDS: AMOXICILLIN 500 MG CAP PO SCH (14:19)
[2023-08-05] MEDS: LACOSAMIDE 50 MG TABLET PO SCH (14:19)
--- NOTE | 2023-08-05 15:18 | P.CNNES ---
History of Present Illness Consult date: 08/05/23 Requesting physician: Eber Castellano Reason for Consult: seizureX1 and VNS malfunction History of Present Illness: Is a 33-year-old gentleman with history of seizure and he stated that he was notified it was epileptic and nonepileptic in nature, VNS, schizoaffective disorder, depression, PTSD who presents emergency department because a seizure. Stated that he is not aware of the seizure but he was notified by his s ignificant other that he had a seizure and the seizure lasted for 2 minutes and that he had difficulty breathing for 30 seconds. He stated that the VNS kept on firing yesterday. Today he feels back to baseline. He denies any tongue bite, urinary or bowel incontinence. He is on Keppra 1500 mg twice daily and he is compliant with the medication. He stated that he follows up with Dr. Dukes for his seizure. He had the VNS placed on April 27, 2023 and that he was supposed to have an appointment with his neurologist last week but he stated that he arrived late for evaluation of VNS so was not seen when arrived. He feels he is back to baseline. He denies any further firing of the VNS. Denies of any headache, focal weakness, difficulty getting words out. Note the patient was seen by our neurology team multiple times in the past. He was last seen by Dr. Hillman on 06/10/2022. It seems Dr. Hillman increase his Keppra to 1000 mg twice daily. He had a routine EEG on 05/10/2022 and was normal. The event was captured that was nonepileptic. Some of the workup during this hospital visit consisted of: Is afebrile. Initial blood pressure is 153/103 that has improved. CBC with differential is unremarkable Chemistry panel is ALT 67. Review of Systems Review of system: The 12 point system was reviewed and apparent positive and negative per HPI. 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 Date of last positivie culture/infection: 2005 MDRO Source:: leg Past Surgical History: Hernia Repair Additional Past Surgical History / Comment(s): forehead reconstruction for head lac as child Past Anesthesia/Blood Transfusion Reactions: No Reported Reaction Past Psychological History: Bipolar, Depression, PTSD, Schizoaffective Disorder Smoking Status: Former smoker Past Alcohol Use History: Occasional Past Drug Use History: Marijuana - Past Family History Father Family Medical History: Cancer Additional Family Medical History / Comment(s): ADOPTED-NOT TOTALLY SURE OF HHX Mother Family Medical History: Cancer Additional Family Medical History / Comment(s): ADOPTED-NOT TOTALLY SURE OF HHX Medications and Allergies Home Medications Medication Instructions Recorded Confirmed Type Loratadine [Claritin] 10 mg PO DAILY 01/28/18 08/05/23 History Montelukast [Singulair] 10 mg PO DAILY 01/28/18 08/05/23 History Fluticasone Propion/Salmeterol 2 puff INHALATION RT-DAILY 07/25/20 08/05/23 Hi story [Advair Hfa 230-21 Mcg Inhaler] Naproxen [Naprosyn] 500 mg PO Q12HR PRN 07/25/20 08/05/23 History Valtoco 10 Mg/[place] 1 spray NASAL DIRECTED PRN 02/24/22 08/05/23 History Butalb/APAP/Caff 50-325-40Mg 1 tab PO BID PRN 12/02/22 08/05/23 History [Fioricet 50-325-40] levETIRAcetam [Keppra] 1,500 mg PO Q12HR 12/02/22 08/05/23 History ARIPiprazole [Abilify] 15 mg PO HS 08/05/23 08/05/23 History Acetaminophen-Codeine 300-30mg 1 tab PO Q4H PRN 08/05/23 08/05/23 History [Tylenol w/codeine #3] Albuterol Sulfate [Albuterol 2 puff PO RT-Q6H PRN 08/05/23 08/05/23 History Sulfate Hfa] Amoxicillin 500 mg PO Q8H 08/05/23 08/05/23 History Cholecalciferol (Vitamin D3) 50 mcg PO DAILY 08/05/23 08/05/23 History [Vitamin D3 (50 Mcg = 2000 Iu)] Ibuprofen [Motrin] 800 mg PO Q8H PRN 08/05/23 08/05/23 History Allergies Allergy/AdvReac Type Severity Reaction Status Date / Time diphenhydramine Allergy Confusion Verified 08/05/23 11:59 [From Benadryl] Sulfa (Sulfonamide Allergy Swelling Verified 08/05/23 11:59 Antibiotics) sulfamethoxazole Allergy Swelling Verified 08/05/23 11:59 [From Bactrim] trimethoprim [From Bactrim] Allergy Swelling Verified 08/05/23 11:59 Physical Examination - Vital Signs Vital Signs: Vital Signs Temp Pulse Resp BP Pulse Ox 08/05/23 07:00 68 16 148/86 95 08/05/23 06:30 70 16 136/81 95 08/05/23 06:00 72 15 122/80 95 08/05/23 05:30 76 16 137/88 94 L 08/05/23 05:00 75 16 135/82 95 08/05/23 04:00 84 12 135/93 95 08/05/23 02:15 98.5 F 86 16 153/103 95 Intake and Output 08/05/23 08/05/23 08/05/23 06:59 14:59 22:59 Other: Weight 154.221 kg GENERAL: The patient is lying in bed and is not in acute distress. NEUROLOGICAL: Higher mental function: The patient is awake, alert, oriented to self, place and time. Patient is following commands. No aphasia and no neglect. Cranial nerves: The pupils are round, equal and reactive to light and accommodation. Visual [place] are full to confrontation throughout. Extraocular movement is intact no nystagmus is noted. Facial sensation is normal to touch throughout. The facial strength is normal throughout. Hearing is normal bilaterally to hand rub. Tongue is midline and moved [id number] without any difficulty. No dysarthria is noted. Shoulder shrug is normal bilaterally. Motor: The strength is 5 over 5 throughout. Normal tone and bulk. Cerebellum: Normal finger to nose heel to deleon bilaterally. Sensation: Sensation is normal to touch throughout. Reflexes (right/left): 2+ throughout. Plantars are downgoing bilaterally. Results - Laboratory Findings CBC and BMP: 08/05/23 03:18 08/05/23 03:18 Abnormal Lab Findings: Abnormal Labs 08/05/23 03:18 ALT 67 H Assessment and Plan Assessment: This is a 33-year-old gentleman with a history of seizure and its epileptic and nonepileptic in nature, VNS in April 2023 who stated that he was notified by his significant other that he had a seizure that lasted for 2 minutes and he had difficulty breathing for 30 seconds. He denies any urinary incontinence, bowel incontinence or tongue bite. He stated that his VNS was firing yesterday for a long period of time but currently feels back to baseline today. He had a pending evaluation by his neurologist last week but stated that he was not valid by the neurologist since he was late for the appointment. Breakthrough seizure History of seizure epileptic and nonepileptic and the patient has VNS. The patient had EEG in our facility on 05/10/2022 was normal. The episode was nonepileptic in nature. History of schizoaffective disorder Depression PTSD Plan: Newly the ED want to assess if the VNS was functional so I asked the primary to have him transferred to [facility] where he had the VNS to assess for the functionality but their system is down. Patient does not want to be transferred anywhere stated he will follow-up with his neurologist (Dr. Grimm) for further evaluation of the VNS. He is resumed on Keppra 1500 mg twice daily by the ED team. He was given Keppra 1.5 g loading by the ED. I started the patient on Vimpat 50 mg twice daily. Seizure precautions seizure pads Per the [place] DMV, because of the seizures to avoid driving for 6 months until seizure-free, avoid heights, avoid swimming consider or using heavy machinery Will defer the rest of the medical management to primary team Recommend the patient to follow-up with his neurologist within 1 week as outpatient. Will Observe the patient for 1 more day and if clinically doing better, no further seizure, back to baseline and there is no VNS issues then he is cleared from a neurologic perspective by tomorrow. Plan discussed with the patient, and the primary team. Thank you for the consultation. Dr. Hillman will resume neurology service tomorrow A.M. Time with Patient: Greater than 30
[2023-08-05] MEDS: ARIPiprazole 15 MG TAB PO SCH (21:06)
--- NOTE | 2023-08-05 22:38 | HP ---
HISTORY AND PHYSICAL Combined history and physical and discharge summary. CHIEF COMPLAINT: Seizures. HISTORY OF PRESENT ILLNESS: This is a 33-year-old gentleman with a past medical history of multiple medical problems including liver disease, seizure disorder, PTSD, had a vagus nerve stimulation inserted from [facility] also. The patient admitted with seizure disorder. The patient also suspected to have vagus nerve stimulator malfunction also. The patient was unresponsive and the patient had some injury by the teeth also. The patient received Zofran, fentanyl, and the patient has been compliant with Keppra according to him and the patient is admitted for further evaluation and treatment. Dr. Martinez evaluated the patient, recommended the patient to be transferred to [facility] for evaluation of vagus nerve stimulation because the patient is also complaining of left-sided chest pain which could be related to vagus nerve stimulator abnormality. There is no history of any headache, loss of consciousness, or seizures. PAST MEDICAL HISTORY: Bipolar depression, PTSD, seizure disorder, rest of the history and chart is also reviewed. HOME MEDICATIONS: Reviewed include Motrin, dose and rest of medications reviewed. ALLERGIES: Reviewed include Benadryl, rest of allergies reviewed. FAMILY HISTORY: History of cancer in the family, otherwise adopted. SOCIAL HISTORY: Occasional alcohol, acute smoking, THC. REVIEW OF SYSTEMS: A 14-point review is negative except as mentioned earlier. PHYSICAL EXAMINATION: VITAL SIGNS: Pulse is 70, blood pressure 136/81, and respirations 16. HEENT: Conjunctivae normal. NECK: No jugular venous distention. CARDIOVASCULAR: S1, S2. RESPIRATIONS: Diminished at the bases. No rhonchi, no crackles. ABDOMEN: Soft, nontender, obese. LEGS: No edema, no swelling. NERVOUS SYSTEM: No focal deficits. SKIN: No ulcer, rash, bleeding. JOINTS: No active deforming arthropathy. LABORATORY DATA: CBC within normal limits, ALT 67. ASSESSMENT: 1. Seizures and breakthrough generalized total tonic-clonic seizures. 2. Vagus nerve stimulation malfunction, possibly. 3. Left-sided chest pain, possibly musculoskeletal, possibly related to vagus nerve malfunction. 4. History of liver disease. 5. History of asthma. 6. History of MRSA. 7. Bipolar depression, PTSD, schizoaffective disorder. RECOMMENDATIONS AND DISCUSSION: This 33-year-old gentleman presented with multiple complex medical issues, we will monitor the patient closely. I would recommend symptomatic treatment and I would also recommend to resume the home medications including Keppra. Neurology has been consulted as mentioned early. Neurology has recommended transfer. I would recommend to contact [facility] where the vagus nerve stimulator has been placed for possible transfer and further evaluation. The prognosis is guarded. Further recommendations to follow. See orders for details. Discussed with the patient and caregiver. MMBRUCE / OLESYAN: [id number] /
[2023-08-06] MEDS ORDERED: SYMBICORT 160-4.5 MCG INHALER INHALATION SCH (08:00)
[2023-08-06] MEDS: LORATADINE 10 MG TAB PO SCH (08:30)
[2023-08-06] MEDS: MONTELUKAST 10 MG TAB PO SCH (08:30)
[2023-08-06] MEDS: CHOLECALCIFEROL 25 MCG (1000 IU) TABLET PO SCH (08:31)
[2023-08-06 08:47] VITALS: BP 122/80; PULSE 75; RESP 17; TEMP 97.9
[2023-08-06 09:12] LABS: Basophils # (A) 0.1 k/uL (0-0.2); Basophils % (A) 1 %; Eosinophils # (A) 0.2 k/uL (0-0.7); Eosinophils % (A) 3 %; HCT 47.2 % (39.0-53.0); HGB 15.5 gm/dL (13.0-17.5); Lymphocytes # (A) 1.9 k/uL (1.0-4.8); Lymphocytes % (A) 29 %; MCH 28.9 pg (25.0-35.0); MCHC 32.8 g/dL (31.0-37.0); MCV 87.9 fL (80.0-100.0); Mean Platelet Volume 7.4; Monocytes # (A) 0.4 k/uL (0-1.0); Monocytes % (A) 7 %; Neutrophils # (A) 3.8 k/uL (1.3-7.7); Neutrophils % (A) 60 %; Platelet Count 274 k/uL (150-450); RBC 5.38 m/uL (4.30-5.90); RDW 12.6 % (11.5-15.5); WBC 6.4 k/uL (3.8-10.6)
[2023-08-06 09:36] LABS: ALT 74 U/L (4-49); AST 46 U/L (17-59); African American GFR (CKD) >90 (>60 ml/min/1.73 sqM); Albumin 4.5 g/dL (3.5-5.0); Albumin/Globulin Ratio 1.7; Alkaline Phosphatase 71 U/L (38-126); Anion Gap 6 mmol/L; Blood Urea Nitrogen 12 mg/dL (9-20); Calcium 9.1 mg/dL (8.4-10.2); Carbon Dioxide 25 mmol/L (22-30); Chloride 108 mmol/L (98-107); Globulin 2.7 g/dL; Glucose 102 mg/dL (74-99); Non-African American GFR(CKD) >90 (>60 ml/min/1.73 sqM); Potassium 4.3 mmol/L (3.5-5.1); Sodium 139 mmol/L (137-145); Total Bilirubin 0.5 mg/dL (0.2-1.3); Total Protein 7.2 g/dL (6.3-8.2)
== END 2023-08-06 11:35 | disposition home or self-care (01) ==
LOC: EC 02:10 → 6NMEDSUR 03:58
PROVIDERS: ADMIT Internal Medicine; ATTEND Internal Medicine
DX: G40.909 Epilepsy, unspecified, not intractable, without status epilepticus (principal); F43.10 Post-traumatic stress disorder, unspecified; R07.89 Other chest pain; J45.909 Unspecified asthma, uncomplicated; F31.30 Bipolar disorder, current episode depressed, mild or moderate severity, unspecified; K76.9 Liver disease, unspecified; Z86.14 Personal history of Methicillin resistant Staphylococcus aureus infection; Z80.9 Family history of malignant neoplasm, unspecified; Z79.899 Other long term (current) drug therapy
CPT/HCPCS: 96361; 96365; 99285; 36415; 93005; 80053 ×2; 83735; 85025 ×2; 71045; G0378 ×2; J1953

== ENCOUNTER 2023-08-24 13:44 | Emergency (ER) | payer OTHER ==
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
--- NOTE | 2023-08-24 14:12 | XR ---
EXAMINATION TYPE: XR hand complete LT DATE OF EXAM: 08/24/2023 COMPARISON: NONE HISTORY: Pain TECHNIQUE: Three views are submitted. FINDINGS: The osseous structures are intact. The joint spaces are preserved and there is no acute fracture or dislocation. IMPRESSION: 1. No definite acute fracture or dislocation if symptoms persist, follow-up study in 7 to 10 days wo uld be suggested
[2023-08-24 15:54] VITALS: BP 110/77; PULSE 67; RESP 18; TEMP 98.5
== END 2023-08-24 15:54 | disposition home or self-care (01) ==
LOC: EC 13:44
DX: S60.221A Contusion of right hand, initial encounter (principal); F12.90 Cannabis use, unspecified, uncomplicated; Z87.891 Personal history of nicotine dependence; Z88.2 Allergy status to sulfonamides; Z88.1 Allergy status to other antibiotic agents; Z88.8 Allergy status to other drugs, medicaments and biological substances; W22.09XA Striking against other stationary object, initial encounter
CPT/HCPCS: 99283

== ENCOUNTER 2023-08-26 19:32 | Emergency (ER) | payer OTHER ==
--- NOTE | 2023-08-26 19:49 | ED ---
Chest Pain HPI - General Chief Complaint: Chest Pain Stated Complaint: panic attack Time Seen by Provider: 08/26/23 19:36 Source: EMS, RN notes reviewed Mode of arrival: EMS - History of Present Illness Initial Comments: 33-year-old male with a past medical history significant for hypertension and nonepileptic versus epileptic seizures presenting to the ED with a chief complaint of chest pain. Patient reports he has had intermittent chest pains for the past month. States today had an episode of worsening of chest pain. Per patient's cousin who is with him at the time, patient was swimming and went into the deep then and started to have a panic attack. Then he reports patient started to display seizure-like activity with his face becoming blank his arms tremoring. Did not lose consciousness during this. Did not get submerged into the water secondary to this. At this time, patient reports chest pain improved. Patient follows with Dr. Chappell of neurology. Reports she has been taking his seizure medication as prescribed. Does not follow with cardiology. - Related Data Home Medications Medication Instructions Recorded Confirmed Loratadine [Claritin] 10 mg PO DAILY 01/28/18 08/05/23 Montelukast [Singulair] 10 mg PO DAILY 01/28/18 08/05/23 Fluticasone Propion/Salmeterol 2 puff INHALATION RT-DAILY 07/25/20 08/05/23 [Advair Hfa 230-21 Mcg Inhaler] Naproxen [Naprosyn] 500 mg PO Q12HR PRN 07/25/20 08/05/23 Valtoco 10 Mg/[place] 1 spray NASAL DIRECTED PRN 02/24/22 08/05/23 Butalb/APAP/Caff 50-325-40Mg 1 tab PO BID PRN 12/02/22 08/05/23 [Fioricet 50-325-40] levETIRAcetam [Keppra] 1,500 mg PO Q12HR 12/02/22 08/05/23 ARIPiprazole [Abilify] 15 mg PO HS 08/05/23 08/05/23 Acetaminophen-Codeine 300-30mg 1 tab PO Q4H PRN 08/05/23 08/05/23 [Tylenol w/codeine #3] Albuterol Sulfate [Albuterol 2 puff PO RT-Q6H PRN 08/05/23 08/05/23 Sulfate Hfa] Amoxicillin 500 mg PO Q8H 08/05/23 08/05/23 Cholecalciferol (Vitamin D3) 50 mcg PO DAILY 08/05/23 08/05/23 [Vitamin D3 (50 Mcg = 2000 Iu)] Ibuprofen [Motrin] 800 mg PO Q8H PRN 08/05/23 08/05/23 Previous Rx's Medication Instructions Recorded Acetaminophen Tab [Tylenol] 650 mg PO Q6HR PRN tab 08/06/23 Lacosamide [Vimpat] 50 mg PO BID #60 tab 08/06/23 Allergies Allergy/AdvReac Type Severity Reaction Status Date / Time diphenhydramine Allergy Confusion Verified 08/26/23 21:30 [From Benadryl] Sulfa (Sulfonamide Allergy Swelling Verified 08/26/23 21:30 Antibiotics) sulfamethoxazole Allergy Swelling Verified 08/26/23 21:30 [From Bactrim] trimethoprim [From Bactrim] Allergy Swelling Verified 08/26/23 21:30 Review of Systems ROS Statement: Those systems with pertinent positive or pertinent negative responses have been documented in the HPI. ROS Other: All systems not noted in ROS Statement are negative. 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 Date of last positivie culture/infection: 2005 MDRO Source:: leg Past Surgical History: Hernia Repair Additional Past Surgical History / Comment(s): forehead reconstruction for head lac as child, VNS implant Past Anesthesia/Blood Transfusion Reactions: No Reported Reaction Past Psychological History: Bipolar, Depression, PTSD, Schizoaffective Disorder Smoking Status: Former smoker Past Alcohol Use History: Occasional Past Drug Use History: Marijuana - Past Family History Father Family Medical History: Cancer Additional Family Medical History / Comment(s): ADOPTED-NOT TOTALLY SURE OF HHX Mother Family Medical History: Cancer Additional Family Medical History / Comment(s): ADOPTED-NOT TOTALLY SURE OF HHX General Exam General appearance: alert, in no apparent distress Eye exam: Present: normal appearance Neck exam: Present: normal inspection Respiratory exam: Present: normal lung sounds bilaterally, other (Reproducible midsternal chest wall tenderness to palpation.) Cardiovascular Exam: Present: regular rate, normal rhythm GI/Abdominal exam: Present: soft, normal bowel sounds. Absent: distended, tenderness, guarding, rebound, rigid Neurological exam: Present: alert, oriented X3 Skin exam: Present: warm, dry Course Vital Signs 08/26/23 08/26/23 08/26/23 19:34 20:27 21:15 Temperature 98.8 F Pulse Rate 92 96 96 Respiratory 18 18 20 Rate Blood Pressure 122/79 125/88 161/77 O2 Sat by Pulse 96 95 97 Oximetry Chest Pain MDM - MDM Was pt. sent in by a medical professional or institution (, PA, BILLET WORKER, urgent care, hospital, or snf...) When possible be specific @ -No Did you speak to anyone other than the patient for history (EMS, parent, family, police, friend...)? What history was obtained from this source @ -No Did you review nursing and triage notes (agree or disagree)? Why? @ -I reviewed and agree with nursing and triage notes Were old charts reviewed (outside hosp., previous admission, EMS record, old EKG, old radiological studies, urgent care reports/EKG's, snf records)? Report findings @ -No old charts were reviewed Differential Diagnosis (chest pain, altered mental status, abdominal pain women, abdominal pain men, vaginal bleeding, weakness, fever, dyspnea, syncope, headache, dizziness, GI bleed, back pain, seizure, CVA, palpatations, mental health, musculoskeletal)? @ -Differential Chest Pain: Stable Angina, Unstable Angina, STEMI, NSTEMI Aortic Dissection, Pneumothorax, Musculoskeletal, Esophageal Spasm GERD, Cholecystitis, Pancreatitis, Zoster, this is not meant to be an all-inclusive list. EKG interpreted by me (3pts min.). @ -EKG interpreted by me as sinus rhythm with first-degree AV block with a MA interval 214 ms. Rate of 96 bpm. QRS 114, QT/QTc 350/408. Nonspecific ST and T wave changes. X-rays interpreted by me (1pt min.). @ -Chest x-ray inter by me which shows low lung volumes with generalized hazy appearance which could represent atelectasis versus pulmonary edema. CT interpreted by me (1pt min.). @ -None done U/S interpreted by me (1pt. min.). @ -None done What testing was considered but not performed or refused? (CT, X-rays, U/S, labs)? Why? @ -None What meds were considered but not given or refused? Why? @ -None Did you discuss the management of the patient with other professionals (professionals i.e. DrMeghan, PA, BILLET WORKER, lab, RT, psych nurse, social media developer, leather fitter, teacher, commissioned fire officer, manager of case management)? Give summary @ -No Was smoking cessation discussed for >3mins.? @ -No Was critical care preformed (if so, how long)? @ -No Were there social determinants of health that impacted care today? How? (Homelessness, low income, unemployed, alcoholism, drug addiction, transportation, low edu. Level, literacy, decrease access to med. care, group home, rehab)? @ -No Was there de-escalation of care discussed even if they declined (Discuss DNR or withdrawal of care, Hospice)? DNR status @ -No What co-morbidities impacted this encounter? (DM, HTN, Smoking, COPD, CAD, Cancer, CVA, ARF, Chemo, Hep., AIDS, mental health diagnosis, sleep apnea, morbid obesity)? @ -None Was patient admitted / discharged? Hospital course, mention meds given and route, prescriptions, significant lab abnormalities, going to OR and other pertinent info. @ -Discharge 33-year-old male presented to the ED with complaints of intermittent chest pain for the past month. Today went into the cold portion of the pool and had an anxiety attack started to have episode of chest pain. While in the pool was noted to have seizure-like activity however patient's cousin that witnessed this reported that he did not lose consciousness during this. Noted shakiness of his hands. Did not go underwater or aspirate during this time. Laboratory studies reviewed. Labs including CBC, CMP largely unremarkable. Troponin x 2 undetectable. Chest x-ray largely unremarkable. Discharged home in stable condition with instructions to follow-up with his PCP. Discussed return precautions and patient verbalized agreement. Undiagnosed new problem with uncertain prognosis? @ -No Drug Therapy requiring intensive monitoring for toxicity (Heparin, Nitro, Insulin, Cardizem)? @ -No Were any procedures done? @ -No Diagnosis/symptom? @ -Chest pain, seizure-like activity Acute, or Chronic, or Acute on Chronic? @ -Acute on chronic Uncomplicated (without systemic symptoms) or Complicated (systemic symptoms)? @ -Uncomplicated Side effects of treatment? @ -No Exacerbation, Progression, or Severe Exacerbation? @ -No Poses a threat to life or bodily function? How? (Chest pain, [place], [place], pneumonia, PE, COPD, DKA, ARF, appy, cholecystitis, CVA, Diverticulitis, Homicidal, Suicidal, threat to staff... and all critical care pts) @ -Unlikely at this time Disposition Clinical Impression: Chest pain, Seizure-like activity Disposition: HOME SELF-CARE Condition: Good Instructions (If sedation given, give patient instructions): Chest Pain (ED) Additional Instructions: Please return to the Emergency Department if symptoms worsen or any other concerns. Please follow-up with your PCP and neurologist. Is patient prescribed a controlled substance at d/c from ED?: No Referrals: Marycarmen Gaston MD [Primary Care Provider] - 1-2 days Time of Disposition: 23:30
[2023-08-26 20:00] LABS: Basophils # (A) 0.1 k/uL (0-0.2); Basophils % (A) 1 %; Eosinophils # (A) 0.2 k/uL (0-0.7); Eosinophils % (A) 3 %; HCT 45.1 % (39.0-53.0); Lymphocytes # (A) 2.1 k/uL (1.0-4.8); Lymphocytes % (A) 31 %; MCH 29.1 pg (25.0-35.0); MCHC 33.3 g/dL (31.0-37.0); MCV 87.3 fL (80.0-100.0); Mean Platelet Volume 7.7; Monocytes # (A) 0.5 k/uL (0-1.0); Monocytes % (A) 8 %; Neutrophils # (A) 3.9 k/uL (1.3-7.7); Neutrophils % (A) 56 %; Platelet Count 234 k/uL (150-450); RBC 5.17 m/uL (4.30-5.90); RDW 12.6 % (11.5-15.5)
[2023-08-26 20:07] LABS: ALT 96 U/L (4-49); AST 60 U/L (17-59); African American GFR (CKD) >90 (>60 ml/min/1.73 sqM); Albumin 4.5 g/dL (3.5-5.0); Alkaline Phosphatase 81 U/L (38-126); Anion Gap 7 mmol/L; Blood Urea Nitrogen 13 mg/dL (9-20); Calcium 9.3 mg/dL (8.4-10.2); Carbon Dioxide 24 mmol/L (22-30); Chloride 107 mmol/L (98-107); Glucose 91 mg/dL (74-99); Magnesium 1.8 mg/dL (1.6-2.3); Non-African American GFR(CKD) >90 (>60 ml/min/1.73 sqM); Potassium 3.8 mmol/L (3.5-5.1); Sodium 138 mmol/L (137-145); Total Bilirubin 0.8 mg/dL (0.2-1.3)
[2023-08-26 20:10] LABS: INR 1.1 (<1.2); Partial Thromboplastin Time 22.7 sec (22.0-30.0); Prothrombin Time 11.5 sec (10.0-12.5)
--- NOTE | 2023-08-26 20:33 | XR ---
EXAMINATION TYPE: XR chest 2V DATE OF EXAM: 08/26/2023 8:18 PM CLINICAL INDICATION:Male, 33 years old with history of Chest Pain; H COMPARISON: Chest radiographs from 08/05/2023 TECHNIQUE: XR chest 2V Frontal and lateral views of the chest. FINDINGS: Lungs/Pleura: Low lung volumes are present. There is no evidence of pleural effusion, focal consolida tion, or pneumothorax. Pulmonary vascularity: Unremarkable. Heart/mediastinum: Cardiomediastinal silhouette is prominent in size. Single-lead electronic device i s present in the left chest.. Musculoskeletal: No acute osseous pathology. IMPRESSION: Low lung volumes with a generalized hazy appearance which could represent atelectasis versus pulmonar y edema correlate with serum BNP.
[2023-08-26] MEDS: ASPIRIN 81 MG PO STA (21:52)
[2023-08-26 23:58] VITALS: BP 107/70; PULSE 76; RESP 18; TEMP 98.4
== END 2023-08-27 00:01 | disposition home or self-care (01) ==
LOC: EC 19:32
DX: F44.5 Conversion disorder with seizures or convulsions (principal); R10.9 Unspecified abdominal pain; Z87.891 Personal history of nicotine dependence; Z88.1 Allergy status to other antibiotic agents; Z88.2 Allergy status to sulfonamides; Z88.8 Allergy status to other drugs, medicaments and biological substances
CPT/HCPCS: 36415; 71046; 80053; 83735; 84484; 85025; 85610; 85730; 93005; 99285

== ENCOUNTER → 2023-08-29 | Outpatient (CLI) | payer OTHER ==
[2023-08-29 14:18] VITALS: BP 109/70; PULSE 58; RESP 20; TEMP 97.9
--- NOTE | 2023-08-29 14:42 | P.SLEEP ---
History of Present Illness DATE: 08/29/2023 CONSULTATION/NEW PATIENT EVALUATION HISTORY OF PRESENT ILLNESS/SLEEP-WAKE EVALUATION: 33-year-old gentleman had b een evaluated in the sleep center for possible obstructive sleep apnea hypopnea syndrome. SLEEP SCHEDULE: Usually sleep schedule from 10:30 PM to 9:30 AM on weekdays and from 11 PM to 11:30 AM on weekend. FALLING ASLEEP: Sometimes patient has difficulties with falling asleep, although no TV in bedroom. DURING SLEEP: Patient snores according to his and wakes up from sleep up to 4 times with nocturia. Positive history of twitchings and to muscle spasms. No history of hypnogogical hallucinations, sleep paralysis, or cataplexy. DURING THE DAY/WAKE STATE: In the morning patient wake up tired, has problems with memory, irritability and depression.. [place] sleepiness scale is 6. Patient take 1 nap afternoon. PAST MEDICAL HISTORY: Epilepsy, stress related seizures, hypertension, asthma, depression, PTSD. PAST SURGICAL HISTORY: Vagal nerve stimulator insertion. MEDICATIONS: Please see below. SOCIAL HISTORY: Please see below. FAMILY HISTORY: Stroke, during the sleep. REVIEW OF SYSTEMS: Snoring, multiple awakenings from sleep, sleepiness during the day. No fevers. No double vision. No recent chest pain. No shortness of breath. No abdominal pain. No bleeding episodes. No blood in urine. No seizure episodes. PHYSICAL EXAMINATION: GENERAL: A pleasant patient without any distress. VITAL SIGNS: Please see below, weight 328 pounds, BMI 43.8 . HEENT: PERRLA, EOMI. Evaluation of oropharynx showed tongue protrudes midline, low position of soft palate Mallampati 4. NECK: Supple. No JVD. Thyroid is not palpable. 20 inches in circumference. LUNGS: Clear to percussion and to auscultation. Good air exchange. No wheezing or rhonchi. HEART: S1, S2 regular. No murmurs, gallops or rubs. ABDOMEN: Soft and nontender. Bowel sounds are present. No organomegaly a ppreciated. EXTREMITIES: No clubbing or cyanosis. GLASS VIAL BENDING CONVEYOR FEEDER: Awake, alert, and oriented x3. Cranial nerves 2 to 7 intact. There is no fasciculation or atrophy noted. No focal deficits observed. ASSESSMENT: 1. Snoring, multiple awakenings from sleep, extremely low position of soft palate, sleepiness, wide neck 20 inches in circumference. Obstructive sleep apnea hypopnea syndrome. 2. Epilepsy and stress-related seizure disorder. Positive history of seizures during the sleep. 3. Obesity BMI 43.8. 4. Status post vagal nerve stimulator insertion for prevention of seizures in April 2023. 5 hypertension. 6 . Depression. 7. PTSD. 8. Status post hernia repair. 9. History of twitching and muscle spasms during the sleep. Possibly periodic limb movements. PLAN: 1. Polysomnography for evaluation of patient's breathing during sleep and to check for possible periodic limb movements. 2. CPAP/BiPAP titration if sleep study confirms obstructive sleep apnea- hypopnea syndrome. 3. Preferable position during sleep on the side. 4. No driving if patient feels any sleepiness. Patient is aware of civil and criminal liability for unsafe driving. 5. Sleep hygiene with regular sleep time for at least 7.5-8 hours. 6. Watching and losing weight. Thank you very much for referring this patient for consultation. Sincerely, Timmy Rose MD, PhD, FAASM. Diplomat of [place] [employer], Sleep Medicine Board by [place] [employer] [place] [employer] [facility] [place] 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 Date of last positivie culture/infection: 2005 MDRO Source:: leg Past Surgical History: Hernia Repair Additional Past Surgical History / Comment(s): forehead reconstruction for head lac as child, VNS implant Past Anesthesia/Blood Transfusion Reactions: No Reported Reaction Past Psychological History: Bipolar, Depression, PTSD, Schizoaffective Disorder Smoking Status: Former smoker Past Alcohol Use History: Occasional Additional Past Alcohol Use History / Comment(s): QUIT SMOKING/DRINKING 02/2020 Past Drug Use History: Marijuana Additional Drug Use History / Comment(s): USES CBD FOR PAIN - Past Family History Father Family Medical History: Cancer Additional Family Medical History / Comment(s): ADOPTED-NOT TOTALLY SURE OF HHX Mother Family Medical History: Cancer Additional Family Medical History / Comment(s): ADOPTED-NOT TOTALLY SURE OF HHX Medications and Allergies Home Medications Medication Instructions Recorded Confirmed Type Loratadine [Claritin] 10 mg PO DAILY 01/28/18 08/05/23 History Montelukast [Singulair] 10 mg PO DAILY 01/28/18 08/05/23 History Fluticasone Propion/Salmeterol 2 puff INHALATION RT-DAILY 07/25/20 08/05/23 History [Advair Hfa 230-21 Mcg Inhaler] Naproxen [Naprosyn] 500 mg PO Q12HR PRN 07/25/20 08/05/23 History Valtoco 10 Mg/[place] 1 spray NASAL DIRECTED PRN 02/24/22 08/05/23 History Butalb/APAP/Caff 50-325-40Mg 1 tab PO BID PRN 12/02/22 08/05/23 History [Fioricet 50-325-40] levETIRAcetam [Keppra] 1,500 mg PO Q12HR 12/02/22 08/29/23 History ARIPiprazole [Abilify] 15 mg PO HS 08/05/23 08/29/23 History Acetaminophen-Codeine 300-30mg 1 tab PO Q4H PRN 08/05/23 08/05/23 History [Tylenol w/codeine #3] Albuterol Sulfate [Albuterol 2 puff PO RT-Q6H PRN 08/05/23 08/29/23 History Sulfate Hfa] Amoxicillin 500 mg PO Q8H 08/05/23 08/05/23 History Cholecalciferol (Vitamin D3) 50 mcg PO DAILY 08/05/23 08/29/23 History [Vitamin D3 (50 Mcg = 2000 Iu)] Ibuprofen [Motrin] 800 mg PO Q8H PRN 08/05/23 08/05/23 History Acetaminophen Tab [Tylenol] 650 mg PO Q6HR PRN tab 08/06/23 Rx Lacosamide [Vimpat] 50 mg PO BID #60 tab 08/06/23 Rx lisinopriL [Zestril] 5 mg PO DAILY 08/29/23 08/29/23 History Allergies Allergy/AdvReac Type Severity Reaction Status Date / Time diphenhydramine Allergy Confusion Verified 08/26/23 21:30 [From Benadryl] Sulfa (Sulfonamide Allergy Swelling Verified 08/26/23 21:30 Antibiotics) sulfamethoxazole Allergy Swelling Verified 08/26/23 21:30 [From Bactrim] trimethoprim [From Bactrim] Allergy Swelling Verified 08/26/23 21:30 Physical Exam Vitals: Vital Signs Temp Pulse Resp BP Pulse Ox 08/29/23 14:17 97.9 F 58 L 20 109/70 99 Sleep Note - Sleep Data ESS Total: 6 - Sleep Note Sleep Note: Temperature: 97.9 F Pulse Rate: 58 Respiratory Rate: 20 Blood Pressure: 109/70 SpO2: 99 Height: Weight: BMI: Neck Circumference: 20
== END ==
LOC: 3 N SLEEP 13:13
PROVIDERS: ATTEND Internal Medicine
DX: G47.33 Obstructive sleep apnea (adult) (pediatric) (principal); E66.9 Obesity, unspecified; I10 Essential (primary) hypertension; F32.A Depression, unspecified; F43.10 Post-traumatic stress disorder, unspecified; G40.509 Epileptic seizures related to external causes, not intractable, without status epilepticus; Z98.890 Other specified postprocedural states; Z68.41 Body mass index [BMI] 40.0-44.9, adult; Z96.82 Presence of neurostimulator; Z87.39 Personal history of other diseases of the musculoskeletal system and connective tissue; Z87.891 Personal history of nicotine dependence; Z79.899 Other long term (current) drug therapy; Z88.8 Allergy status to other drugs, medicaments and biological substances; Z88.2 Allergy status to sulfonamides; Z88.1 Allergy status to other antibiotic agents
CPT/HCPCS: 99211

== ENCOUNTER 2023-09-19 20:34 | Emergency (ER) | payer OTHER ==
[2023-09-19 20:47] VITALS: TEMP 98.2
--- NOTE | 2023-09-19 21:47 | ED ---
Seizure HPI - General Chief Complaint: Seizure Stated Complaint: seizure Time Seen by Provider: 09/19/23 20:50 Source: patient, family, EMS, RN notes reviewed Mode of arrival: EMS - History of Present Illness Initial Comments: This is a 33-year-old male with past medical history of epileptic seizures presents emergency department via EMS for chief complaint of a seizure. s tates that the patient was at a friend's house when he sensation that he was about to experience a seizure when he went to the use the nerve stimulator that normally reports seizure activity this did not work. It was reported that this patient had seizures and last recommended time have been ranging from 30 seconds to 2 minutes. states that patient was unarousable at this time. EMS was called and the emergency department. Patient states that he has a history of right-sided neurological deficits following seizure activities and states that he is having pain on the right side of his body. Patient is complaining of a headache. He states that he has been compliant with his medications. - Related Data Home Medications Medication Instructions Recorded Confirmed Loratadine [Claritin] 10 mg PO DAILY 01/28/18 08/05/23 Montelukast [Singulair] 10 mg PO DAILY 01/28/18 08/05/23 Fluticasone Propion/Salmeterol 2 puff INHALATION RT-DAILY 07/25/20 08/05/23 [Advair Hfa 230-21 Mcg Inhaler] Naproxen [Naprosyn] 500 mg PO Q12HR PRN 07/25/20 08/05/23 Valtoco 10 Mg/[place] 1 spray NASAL DIRECTED PRN 02/24/22 08/05/23 Butalb/APAP/Caff 50-325-40Mg 1 tab PO BID PRN 12/02/22 08/05/23 [Fioricet 50-325-40] levETIRAcetam [Keppra] 1,500 mg PO Q12HR 12/02/22 08/29/23 ARIPiprazole [Abilify] 15 mg PO HS 08/05/23 08/29/23 Acetaminophen-Codeine 300-30mg 1 tab PO Q4H PRN 08/05/23 08/05/23 [Tylenol w/codeine #3] Albuterol Sulfate [Albuterol 2 puff PO RT-Q6H PRN 08/05/23 08/29/23 Sulfate Hfa] Amoxicillin 500 mg PO Q8H 08/05/23 08/05/23 Cholecalciferol (Vitamin D3) 50 mcg PO DAILY 08/05/23 08/29/23 [Vitamin D3 (50 Mcg = 2000 Iu)] Ibuprofen [Motrin] 800 mg PO Q8H PRN 08/05/23 08/05/23 lisinopriL [Zestril] 5 mg PO DAILY 08/29/23 08/29/23 Previous Rx's Medication Instructions Recorded Acetaminophen Tab [Tylenol] 650 mg PO Q6HR PRN tab 08/06/23 Lacosamide [Vimpat] 50 mg PO BID #60 tab 08/06/23 Allergies Allergy/AdvReac Type Severity Reaction Status Date / Time diphenhydramine Allergy Confusion Verified 09/19/23 20:46 [From Benadryl] Sulfa (Sulfonamide Allergy Swelling Verified 09/19/23 20:46 Antibiotics) sulfamethoxazole Allergy Swelling Verified 09/19/23 20:46 [From Bactrim] trimethoprim [From Bactrim] Allergy Swelling Verified 09/19/23 20:46 Review of Systems ROS Statement: Those systems with pertinent positive or pertinent negative responses have been documented in the HPI. ROS Other: All systems not noted in ROS Statement are negative. 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 Date of last positivie culture/infection: 2005 MDRO Source:: leg Past Surgical History: Hernia Repair Additional Past Surgical History / Comment(s): forehead reconstruction for head lac as child, VNS implant Past Anesthesia/Blood Transfusion Reactions: No Reported Reaction Past Psychological History: Bipolar, Depression, PTSD, Schizoaffective Disorder Smoking Status: Former smoker Past Alcohol Use History: Occasional Past Drug Use History: Marijuana - Past Family History Father Family Medical History: Cancer Additional Family Medical History / Comment(s): ADOPTED-NOT TOTALLY SURE OF HHX Mother Family Medical History: Cancer Additional Family Medical History / Comment(s): ADOPTED-NOT TOTALLY SURE OF HHX General Exam General appearance: alert, in no apparent distress Head exam: Present: atraumatic, normocephalic, normal inspection Eye exam: Present: normal appearance, PERRL, EOMI. Absent: scleral icterus, conjunctival injection, periorbital swelling ENT exam: Present: normal exam, mucous membranes moist Neck exam: Present: normal inspection. Absent: tenderness, meningismus, lymphadenopathy Respiratory exam: Present: normal lung sounds bilaterally. Absent: respiratory distress, wheezes, rales, rhonchi, stridor Cardiovascular Exam: Present: regular rate, normal rhythm, normal heart sounds. Absent: systolic murmur, diastolic murmur, rubs, gallop, clicks GI/Abdominal exam: Present: soft, normal bowel sounds. Absent: distended, tenderness, guarding, rebound, rigid Neurological exam: Present: alert, oriented X3, CN II-XII intact Skin exam: Present: warm, dry, intact, normal color. Absent: rash Course Vital Signs 09/19/23 09/19/23 09/19/23 20:43 22:29 23:30 Temperature 98.2 F Pulse Rate 82 76 82 Respiratory 20 22 20 Rate Blood Pressure 123/79 133/81 118/65 O2 Sat by Pulse 94 L 100 100 Oximetry 09/20/23 00:50 Temperature 98.2 F Pulse Rate 80 Respiratory 20 Rate Blood Pressure 110/66 O2 Sat by Pulse 100 Oximetry Medical Decision Making - Medical Decision Making Was pt. sent in by a medical professional or institution ([facility], [employer], urgent care, hospital, or jail...) When possible be specific @ -No Did you speak to anyone other than the patient for history (EMS, parent, family, police, friend...)? What history was obtained from this source @ -Spoke to the patient's at bedside who states the patient has a history of seizures. Also she states that the patient was unresponsive for roughly 2 minutes during the procedure and roughly 3 minutes during the second seizure. Did you review nursing and triage notes (agree or disagree)? Why? @ -I reviewed and agree with nursing and triage notes Were old charts reviewed (outside hosp., previous admission, EMS record, old EKG, old radiological studies, urgent care reports/EKG's, jail records)? Report findings @ -No old charts were reviewed Differential Diagnosis (chest pain, altered mental status, abdominal pain women, abdominal pain men, vaginal bleeding, weakness, fever, dyspnea, syncope, headache, dizziness, GI bleed, back pain, seizure, CVA, palpatations, mental health, musculoskeletal)? @ -Differential Seizure: Recurrent seizure disorder, febrile seizure, alcohol withdrawal, stimulants, meningitis, encephalitis, intercranial hemorrhage, intracranial tumor, stroke, eclampsia, thyrotoxicosis, hypocalcemia, hyponatremia, hypernatremia, hypomagnesemia, psychogenic, this is not meant to be an all-inclusive list. EKG interpreted by me (3pts min.). @ -none X-rays interpreted by me (1pt min.). @ -None done CT interpreted by me (1pt min.). @ -None done U/S interpreted by me (1pt. min.). @ -None done What testing was considered but not performed or refused? (CT, X-rays, U/S, labs)? Why? @ -None What meds were considered but not given or refused? Why? @ -None Did you discuss the management of the patient with other professionals (professionals i.e. , PA, [employer]ATE, lab, RT, psych nurse, psychiatric social worker supervisor, lay brother, teacher, life science technical officer, director of casework)? Give summary @ -No Was smoking cessation discussed for >3mins.? @ -No Was critical care preformed (if so, how long)? @ -No Were there social determinants of health that impacted care today? How? (Homelessness, low income, unemployed, alcoholism, drug addiction, transportation, low edu. Level, literacy, decrease access to med. care, senior care, rehab)? @ -No Was there de-escalation of care discussed even if they declined (Discuss DNR or withdrawal of care, Hospice)? DNR status @ -No What co-morbidities impacted this encounter? (DM, HTN, Smoking, COPD, CAD, Can cer, CVA, ARF, Chemo, Hep., AIDS, mental health diagnosis, sleep apnea, morbid obesity)? @ -None Was patient admitted / discharged? Hospital course, mention meds given and route, prescriptions, significant lab abnormalities, going to OR and other pertinent info. @ -Charge. 33-year-old male with seizure. On examination patient is slightly lethargic but is able to respond to verbal stimuli. Patient is provided with a dose of Keppra and IV fluids. On reevaluation patient is alert and oriented x 4. Neurological examination completed with no acute deficits. Patient is able to respond to questions and reports history of current events. He states that he has been compliant with his medications. Patient is concerned that his vagal stimulator may have moved. Labs no acute findings. With patient at bedside the possibility to stay overnight for observation and visit with neurology in the morning. Patient declines and states that he would like to follow-up as scheduled with his neurologist on Saturday outpatient. Patient has not expressed any seizure activity while in the emergency department he is resting comfortably at bedside and vitals have been within normal limits during the duration of his time in the emergency department. Discussed pros and cons of patient staying and he notes that he would like to go home at this time. Strict return parameters discussed with the patient which she has verbalized understanding. Discussed with Dr. Jamison. Undiagnosed new problem with uncertain prognosis? @ -No Drug Therapy requiring intensive monitoring for toxicity (Heparin, Nitro, In sulin, Cardizem)? @ -No Were any procedures done? @ -No Diagnosis/symptom? @ -seizure Acute, or Chronic, or Acute on Chronic? @ -acute Uncomplicated (without systemic symptoms) or Complicated (systemic symptoms)? @ -complicated Side effects of treatment? @ -No Exacerbation, Progression, or Severe Exacerbation? @ -No Poses a threat to life or bodily function? How? (Chest pain, [place], [place], pneumonia, PE, COPD, DKA, ARF, appy, cholecystitis, CVA, Diverticulitis, Homicidal, Suicidal, threat to staff... and all critical care pts) @ -No - Lab Data Result diagrams: 09/19/23 22:41 09/19/23 22:41 Lab Results 09/19/23 09/19/23 Range/Units 22:41 22:41 WBC 7.4 (3.8-10.6) k/uL RBC 5.14 (4.30-5.90) m/uL Hgb 15.1 (13.0-17.5) gm/dL Hct 44.8 (39.0-53.0) % MCV 87.2 (80.0-100.0) fL MCH 29.4 (25.0-35.0) pg MCHC 33.7 (31.0-37.0) g/dL RDW 12.6 (11.5-15.5) % Plt Count 222 (150-450) k/uL MPV 7.4 Neutrophils % 58 % Lymphocytes % 32 % Monocytes % 6 % Eosinophils % 2 % Basophils % 0 % Neutrophils # 4.3 (1.3-7.7) k/uL Lymphocytes # 2.4 (1.0-4.8) k/uL Monocytes # 0.5 (0-1.0) k/uL Eosinophils # 0.2 (0-0.7) k/uL Basophils # 0.0 (0-0.2) k/uL Sodium 136 L (137-145) mmol/L Potassium 4.8 (3.5-5.1) mmol/L Chloride 105 (98-107) mmol/L Carbon Dioxide 23 (22-30) mmol/L Anion Gap 8 mmol/L BUN 14 (9-20) mg/dL Creatinine 0.79 (0.66-1.25) mg/dL Est GFR (CKD-EPI)AfAm >90 (>60 ml/min/1.73 sqM) Est GFR (CKD-EPI)NonAf >90 (>60 ml/min/1.73 sqM) Glucose 86 (74-99) mg/dL Calcium 9.4 (8.4-10.2) mg/dL Magnesium 2.0 (1.6-2.3) mg/dL Total Bilirubin 1.1 (0.2-1.3) mg/dL AST 63 H (17-59) U/L ALT 87 H (4-49) U/L Alkaline Phosphatase 63 (38-126) U/L Total Protein 7.2 (6.3-8.2) g/dL Albumin 4.7 (3.5-5.0) g/dL Disposition Clinical Impression: Focal seizure, Recurrent seizures Disposition: HOME SELF-CARE Condition: Good Instructions (If sedation given, give patient instructions): Seizure/Epilepsy Discharge Instructions & Follow-Up Additional Instructions: Return to the emergency department if symptoms worsen or not improve. Recommend follow-up with your neurologist as scheduled on Saturday for reevaluation. Is patient prescribed a controlled substance at d/c from ED?: No Referrals: Marycarmen Gaston MD [Primary Care Provider] - 1-2 days Time of Disposition: 23:48
[2023-09-19 22:47] LABS: Basophils % (A) 0 %; Eosinophils # (A) 0.2 k/uL (0-0.7); Eosinophils % (A) 2 %; HCT 44.8 % (39.0-53.0); HGB 15.1 gm/dL (13.0-17.5); Lymphocytes # (A) 2.4 k/uL (1.0-4.8); Lymphocytes % (A) 32 %; MCH 29.4 pg (25.0-35.0); MCHC 33.7 g/dL (31.0-37.0); MCV 87.2 fL (80.0-100.0); Mean Platelet Volume 7.4; Monocytes # (A) 0.5 k/uL (0-1.0); Monocytes % (A) 6 %; Neutrophils # (A) 4.3 k/uL (1.3-7.7); Neutrophils % (A) 58 %; Platelet Count 222 k/uL (150-450); RBC 5.14 m/uL (4.30-5.90); RDW 12.6 % (11.5-15.5); WBC 7.4 k/uL (3.8-10.6)
[2023-09-19] MEDS: ACETAMINOPHEN TAB 500 MG TAB PO STA (22:48)
[2023-09-19] MEDS: levETIRAcetam IV 500 MG/5 ML VIAL IVP STA (22:48)
[2023-09-19] MEDS: SODIUM CHLORIDE 0.9% 1,000 ML IV STA (22:49)
[2023-09-19 23:18] LABS: ALT 87 U/L (4-49); African American GFR (CKD) >90 (>60 ml/min/1.73 sqM); Anion Gap 8 mmol/L; Blood Urea Nitrogen 14 mg/dL (9-20); Calcium 9.4 mg/dL (8.4-10.2); Carbon Dioxide 23 mmol/L (22-30); Chloride 105 mmol/L (98-107); Glucose 86 mg/dL (74-99); Non-African American GFR(CKD) >90 (>60 ml/min/1.73 sqM); Sodium 136 mmol/L (137-145); Total Bilirubin 1.1 mg/dL (0.2-1.3)
[2023-09-19 23:23] LABS: AST 63 U/L (17-59); Albumin 4.7 g/dL (3.5-5.0); Alkaline Phosphatase 63 U/L (38-126); Potassium 4.8 mmol/L (3.5-5.1); Total Protein 7.2 g/dL (6.3-8.2)
[2023-09-20 00:57] VITALS: BP 110/66; PULSE 80; RESP 20
== END 2023-09-20 00:50 | disposition home or self-care (01) ==
LOC: EC 20:34
DX: G40.109 Localization-related (focal) (partial) symptomatic epilepsy and epileptic syndromes with simple partial seizures, not intractable, without status epilepticus (principal); G40.909 Epilepsy, unspecified, not intractable, without status epilepticus; Z88.2 Allergy status to sulfonamides; Z88.1 Allergy status to other antibiotic agents; Z88.8 Allergy status to other drugs, medicaments and biological substances; Z87.891 Personal history of nicotine dependence
CPT/HCPCS: 36415; 80053; 83735; 85025; 99284; 96374; 96361; J1953

== ENCOUNTER 2023-10-06 19:33 | Outpatient (CLI) | payer OTHER ==
--- NOTE | 2023-10-09 10:44 | P.PCN ---
Description of Procedure: POLYSOMNOGRAPHY REPORT PROCEDURE(S)/DATE(S): Polysomnography 09/28/2023 CLINICAL: Patient has been seen in the sleep center for evaluation of obstructive sleep apnea-hypopnea syndrome. Please see my consultation. Sleep study has been done for evaluation of patient breathing during the sleep. PROCEDURE: The standard montage for clinical polysomnography included the electroencephalogram, the electrooculogram, the mentalis surface electromyography and Lead II cardiography. The respiratory battery consisted of measurements of nasal/buccal air flow, pressure transducer measurements from nose, thoracic and/or abdominal effort and intercostal surface electromyography. Video monitoring has been done to check for any parasomnia events. Nocturnal oxyhemoglobin saturations were obtained by finger oximetry. Step-vargas titration with positive airway pressure was utilized to control the respiratory events, if necessary. RESULTS: During the diagnostic sleep study sleep efficiency was decreased to 75.0%. Latency to sleep onset was was normal 14.0 min. Sleep architecture showed stage NI was normal 6.8%, Delta sleep was absent 0%, REM sleep was decreased to 11.8%. Respiratory channel showed 1 obstructive apneas, 0 mixed apneas, 1 central apneas, 49 hypopneas with lowest oxygen level 87%. Total apnea hypopnea index was 10.6. Heart rate was in the range between 71 and 83, average 76. EMG showed 0 periodic limb movements per hour. IMPRESSIONS: 1. Obstructive sleep apnea hypopnea syndrome. 2. No significant periodic limb movements have been documented. Please see other impressions from consultation PLAN: 1. The patient will have AutoPAP treatment for correction of respiratory abnormalities during the sleep. 2. Losing weight program. 3. Sleep hygiene with regular time in bed for at least 7-1/2 hours. 4. No driving if feeling sleepiness. 5. I will see patient for follow-up visit to check compliance with treatment, evaluate clinical response on treatment and making necessary adjustments related to mask fitting, pressure and humidification Thank you very much for allowing me to participate in the management of your patient. Sincerely, Timmy Rose MD, PhD, FAASM. Diplomat of [place] [employer], Sleep Medicine Board by [place] [employer] [facility] [place] cc: Marycarmen Gaston MD
== END 2023-10-07 05:10 ==
LOC: 3 N SLEEP 19:33
PROVIDERS: ATTEND Internal Medicine
DX: G47.33 Obstructive sleep apnea (adult) (pediatric) (principal); Z88.8 Allergy status to other drugs, medicaments and biological substances; Z88.2 Allergy status to sulfonamides; Z88.1 Allergy status to other antibiotic agents; Z87.891 Personal history of nicotine dependence
CPT/HCPCS: 95810

== ENCOUNTER 2023-10-29 17:40 | Emergency (ER) | payer OTHER ==
[2023-10-29] MEDS ORDERED: LORazepam 1 MG TAB ONE (18:49)
[2023-10-29] MEDS ORDERED: levETIRAcetam 500 MG TAB ONE (18:51)
== END 2023-10-29 19:00 | disposition home or self-care (01) ==
LOC: EC 17:40
DX: G40.909 Epilepsy, unspecified, not intractable, without status epilepticus (principal)
CPT/HCPCS: 99283

== ENCOUNTER 2023-11-04 13:03 | Emergency (ER) | payer OTHER ==
--- NOTE | 2023-11-04 13:08 | ED ---
General Adult HPI - General Stated complaint: Seizure Time Seen by Provider: 11/04/23 13:05 Source: EMS, RN notes reviewed, old records reviewed Limitations: altered mental status - History of Present Illness Initial comments: 33-year-old male with known seizure disorder presenting with witnessed tonic-c lonic seizure activity by family at home. Has known seizure disorder. He had witnessed seizure lasting 2 minutes at home prior to EMS arrival. Patient has frequent seizure activity at baseline. According to EMS he is compliant with his medication. Associated injury according to paramedics and that the patient had been lowered to the floor without injury. - Related Data Home Medications Medication Instructions Recorded Confirmed Loratadine [Claritin] 10 mg PO DAILY 01/28/18 08/05/23 Montelukast [Singulair] 10 mg PO DAILY 01/28/18 08/05/23 Fluticasone Propion/Salmeterol 2 puff INHALATION RT-DAILY 07/25/20 08/05/23 [Advair Hfa 230-21 Mcg Inhaler] Naproxen [Naprosyn] 500 mg PO Q12HR PRN 07/25/20 08/05/23 Valtoco 10 Mg/[place] 1 spray NASAL DIRECTED PRN 02/24/22 08/05/23 Butalb/APAP/Caff 50-325-40Mg 1 tab PO BID PRN 12/02/22 08/05/23 [Fioricet 50-325-40] levETIRAcetam [Keppra] 1,500 mg PO Q12HR 12/02/22 08/29/23 ARIPiprazole [Abilify] 15 mg PO HS 08/05/23 08/29/23 Acetaminophen-Codeine 300-30mg 1 tab PO Q4H PRN 08/05/23 08/05/23 [Tylenol w/codeine #3] Albuterol Sulfate [Albuterol 2 puff PO RT-Q6H PRN 08/05/23 08/29/23 Sulfate Hfa] Amoxicillin 500 mg PO Q8H 08/05/23 08/05/23 Cholecalciferol (Vitamin D3) 50 mcg PO DAILY 08/05/23 08/29/23 [Vitamin D3 (50 Mcg = 2000 Iu)] Ibuprofen [Motrin] 800 mg PO Q8H PRN 08/05/23 08/05/23 lisinopriL [Zestril] 5 mg PO DAILY 08/29/23 08/29/23 Previous Rx's Medication Instructions Recorded Acetaminophen Tab [Tylenol] 650 mg PO Q6HR PRN tab 08/06/23 Lacosamide [Vimpat] 50 mg PO BID #60 tab 08/06/23 Allergies Allergy/AdvReac Type Severity Reaction Status Date / Time diphenhydramine Allergy Confusion Verified 11/04/23 13:10 [From Benadryl] Sulfa (Sulfonamide Allergy Swelling Verified 11/04/23 13:10 Antibiotics) sulfamethoxazole Allergy Swelling Verified 11/04/23 13:10 [From Bactrim] trimethoprim [From Bactrim] Allergy Swelling Verified 11/04/23 13:10 Review of Systems ROS Statement: Those systems with pertinent positive or pertinent negative responses have been documented in the HPI. ROS Other: All systems not noted in ROS Statement are negative. 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 Date of last positivie culture/infection: 2005 MDRO Source:: leg Past Surgical History: Hernia Repair Additional Past Surgical History / Comment(s): forehead reconstruction for head lac as child, VNS implant Past Anesthesia/Blood Transfusion Reactions: No Reported Reaction Past Psychological History: Bipolar, Depression, PTSD, Schizoaffective Disorder Smoking Status: Former smoker Past Alcohol Use History: Occasional Past Drug Use History: Marijuana - Past Family History Father Family Medical History: Cancer Additional Family Medical History / Comment(s): ADOPTED-NOT TOTALLY SURE OF HHX Mother Family Medical History: Cancer Additional Family Medical History / Comment(s): ADOPTED-NOT TOTALLY SURE OF HHX General Exam General appearance: lethargic Head exam: Present: atraumatic, normocephalic Eye exam: Present: normal appearance, PERRL ENT exam: Present: mucous membranes moist, other (Positive gag reflex) Respiratory exam: Present: normal lung sounds bilaterally. Absent: respiratory distress, wheezes Cardiovascular Exam: Present: regular rate, normal rhythm GI/Abdominal exam: Present: soft. Absent: distended, tenderness, guarding Extremities exam: Present: normal inspection, normal capillary refill Skin exam: Present: warm, dry, intact, normal color Course Vital Signs 11/04/23 11/04/23 11/04/23 13:05 13:30 14:58 Temperature 97.0 F L Pulse Rate 85 79 82 Respiratory 16 18 18 Rate Blood Pressure 119/73 102/65 105/59 O2 Sat by Pulse 97 98 97 Oximetry 11/04/23 15:36 Temperature 98.6 F Pulse Rate 71 Respiratory 18 Rate Blood Pressure 104/65 O2 Sat by Pulse 98 Oximetry Medical Decision Making - Medical Decision Making Was pt. sent in by a medical professional or institution (, AXEL, DRILL PRESS SET UP OPERATOR RADIAL, urgent care, hospital, or [place]...) When possible be specific @ -No Did you speak to anyone other than the patient for history (EMS, parent, family, police, friend...)? What history was obtained from this source @Complete history from paramedics Did you review nursing and triage notes (agree or disagree)? Why? @ -I reviewed and agree with nursing and triage notes Were old charts reviewed (outside hosp., previous admission, EMS record, old EKG, old radiological studies, urgent care reports/EKG's, [place] [facility] [place] records)? Report findings @ -No old charts were reviewed Gradual seizure differential Seizure: Recurrent seizure disorder, febrile seizure, alcohol withdrawal, stimulants, meningitis, encephalitis, intercranial hemorrhage, intracranial tumor, stroke, eclampsia, thyrotoxicosis, hypocalcemia, hyponatremia, hypernatremia, hypomagnesemia, psychogenic, this is not meant to be an all-inclusive list. d by me (3pts min.). @Sinus rhythm with first-degree AV block rate of 81, AK interval 238, QRS duration 109, QTc [address] segment elevation. X-rays interpreted by me (1pt min.). @ -None done CT interpreted by me (1pt min.). @ -None done U/S interpreted by me (1pt. min.). @ -None done What testing was considered but not performed or refused? (CT, X-rays, U/S, labs)? Why? @ -None What meds were considered but not given or refused? Why? @ -None Did you discuss the management of the patient with other professionals (professionals i.e. AXEL Chapman, DRILL PRESS SET UP OPERATOR RADIAL, lab, RT, psych nurse, social service agency director, security system administrator, teacher, community reinvestment act officer, pillowcase cutter)? Give summary @ -No Was smoking cessation discussed for >3mins.? @ -No Was critical care preformed (if so, how long)? @ -No Were there social determinants of health that impacted care today? How? (Homelessness, low income, unemployed, alcoholism, drug addiction, transportation, low edu. Level, literacy, decrease access to med. care, detention, rehab)? @ -No Was there de-escalation of care discussed even if they declined (Discuss DNR or withdrawal of care, Hospice)? DNR status @ -No What co-morbidities impacted this encounter? (DM, HTN, Smoking, COPD, CAD, Cancer, CVA, ARF, Chemo, Hep., AIDS, mental health diagnosis, sleep apnea, morbid obesity)? @Seizure disorder with frequent seizure Was patient admitted / discharged? Hospital course, mention meds given and route, prescriptions, significant lab abnormalities, going to OR and other pertinent info. @3-year-old male presents post generalized seizure which was witnessed by family. No further seizure activity. Patient initially lethargic and postictal. He does return to normal mental status throughout his stay in the emergency department. Patient has normal CBC. He is not acidotic with normal CO2. Normal electrolytes. Patient is in sinus rhythm with stable vitals. Reevaluated, he is awake and alert and able to give detailed history. He is mo ving all extremities symmetrically without focal neurologic findings. 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 Patient offered observation for neurology consultation. Patient declined states he prefers to go home and states the seizure is very typical of his previous seizures and he does have good outpatient follow-up. Undiagnosed new problem with uncertain prognosis? @ -No Drug Therapy requiring intensive monitoring for toxicity (Heparin, Nitro, Insulin, Cardizem)? @ -No Were any procedures done? @ -No Diagnosis/symptom? @ -Seizure Acute, or Chronic, or Acute on Chronic? @ -Acute on chronic Uncomplicated (without systemic symptoms) or Complicated (systemic symptoms)? @ -Default Side effects of treatment? @ -No Exacerbation, Progression, or Severe Exacerbation? @ -No Poses a threat to life or bodily function? How? (Chest pain, [place], [place], pneumonia, PE, COPD, DKA, ARF, appy, cholecystitis, CVA, Diverticulitis, Homicidal, Suicidal, threat to staff... and all critical care pts) @ Yes, Status epilepticus - Lab Data Result diagrams: 11/04/23 13:23 11/04/23 13:23 Lab Results 11/04/23 11/04/23 11/04/23 Range/Units 13:20 13:23 13:23 WBC 5.8 (3.8-10.6) k/uL RBC 5.07 (4.30-5.90) m/uL Hgb 14.6 (13.0-17.5) gm/dL Hct 43.8 (39.0-53.0) % MCV 86.4 (80.0-100.0) fL MCH 28.9 (25.0-35.0) pg MCHC 33.4 (31.0-37.0) g/dL RDW 12.6 (11.5-15.5) % Plt Count 259 (150-450) k/uL MPV 7.2 Neutrophils % 59 % Lymphocytes % 31 % Monocytes % 7 % Eosinophils % 2 % Basophils % 1 % Neutrophils # 3.4 (1.3-7.7) k/uL Lymphocytes # 1.8 (1.0-4.8) k/uL Monocytes # 0.4 (0-1.0) k/uL Eosinophils # 0.1 (0-0.7) k/uL Basophils # 0.1 (0-0.2) k/uL Sodium 137 (137-145) mmol/L Potassium 4.0 (3.5-5.1) mmol/L Chloride 109 H (98-107) mmol/L Carbon Dioxide 24 (22-30) mmol/L Anion Gap 4 mmol/L BUN 13 (9-20) mg/dL Creatinine 0.90 (0.66-1.25) mg/dL Est GFR (CKD-EPI)AfAm >90 (>60 ml/min/1.73 sqM) Est GFR (CKD-EPI)NonAf >90 (>60 ml/min/1.73 sqM) Glucose 92 (74-99) mg/dL POC Glucose (mg/dL) 93 (70-110) mg/dL POC Glu Cement Patcher ID Rowdy Alston Calcium 9.7 (8.4-10.2) mg/dL Magnesium 1.9 (1.6-2.3) mg/dL Total Bilirubin 0.9 (0.2-1.3) mg/dL AST 44 (17-59) U/L ALT 63 H (4-49) U/L Alkaline Phosphatase 75 (38-126) U/L Total Protein 7.4 (6.3-8.2) g/dL Albumin 4.7 (3.5-5.0) g/dL Disposition Clinical Impression: Recurrent seizures, Generalized seizure Disposition: HOME SELF-CARE Condition: Fair Instructions (If sedation given, give patient instructions): Seizure/Epilepsy Discharge Instructions & Follow-Up, Recurrent Seizures in Adults (ED) Is patient prescribed a controlled substance at d/c from ED?: No Referrals: Marycarmen Gaston MD [Primary Care Provider] - 1-2 days Time of Disposition: 14:51
[2023-11-04 13:24] LABS: Glucose,Whole Blood 93 mg/dL (70-110)
[2023-11-04 13:31] LABS: Basophils # (A) 0.1 k/uL (0-0.2); Basophils % (A) 1 %; Eosinophils # (A) 0.1 k/uL (0-0.7); Eosinophils % (A) 2 %; HCT 43.8 % (39.0-53.0); HGB 14.6 gm/dL (13.0-17.5); Lymphocytes # (A) 1.8 k/uL (1.0-4.8); Lymphocytes % (A) 31 %; MCH 28.9 pg (25.0-35.0); MCHC 33.4 g/dL (31.0-37.0); MCV 86.4 fL (80.0-100.0); Mean Platelet Volume 7.2; Monocytes # (A) 0.4 k/uL (0-1.0); Monocytes % (A) 7 %; Neutrophils # (A) 3.4 k/uL (1.3-7.7); Neutrophils % (A) 59 %; Platelet Count 259 k/uL (150-450); RBC 5.07 m/uL (4.30-5.90); RDW 12.6 % (11.5-15.5); WBC 5.8 k/uL (3.8-10.6)
[2023-11-04 13:33] VITALS: RESP 18
[2023-11-04] MEDS: SODIUM CHLORIDE 0.9% 1,000 ML IV STA (13:36)
[2023-11-04 13:44] LABS: ALT 63 U/L (4-49); AST 44 U/L (17-59); African American GFR (CKD) >90 (>60 ml/min/1.73 sqM); Albumin 4.7 g/dL (3.5-5.0); Alkaline Phosphatase 75 U/L (38-126); Anion Gap 4 mmol/L; Blood Urea Nitrogen 13 mg/dL (9-20); Calcium 9.7 mg/dL (8.4-10.2); Carbon Dioxide 24 mmol/L (22-30); Chloride 109 mmol/L (98-107); Glucose 92 mg/dL (74-99); Magnesium 1.9 mg/dL (1.6-2.3); Non-African American GFR(CKD) >90 (>60 ml/min/1.73 sqM); Sodium 137 mmol/L (137-145); Total Bilirubin 0.9 mg/dL (0.2-1.3); Total Protein 7.4 g/dL (6.3-8.2)
[2023-11-04 15:39] VITALS: BP 104/65; PULSE 71; TEMP 98.6
== END 2023-11-04 15:59 | disposition home or self-care (01) ==
LOC: EC 13:03
DX: R56.9 Unspecified convulsions
CPT/HCPCS: 36415; 80053; 83735; 85025; 93005; 96360; 99284

== ENCOUNTER 2023-11-23 15:59 | Observation (INO) | payer OTHER ==
[2023-11-23] MEDS: SODIUM CHLORIDE 0.9% 500 ML 500 ML IV STA (16:21)
--- NOTE | 2023-11-23 16:21 | ED ---
General Adult HPI - General Chief complaint: Seizure Stated complaint: Seizure Time Seen by Provider: 11/23/23 16:01 Source: EMS Mode of arrival: EMS Limitations: altered mental status - History of Present Illness Initial comments: Patient presents to the ED by EMS for evaluation. Per EMS, they were called to the patient's residence after he reportedly had a seizure today. Per EMS, bystanders report that the patient was sitting in a vehicle when his seizure occurred, and they pulled him out of the vehicle. Per EMS, the patient was sitting on the floor next to a vehicle when they arrived. Per EMS, no trauma was reported. Per EMS, the patient was noted to have some tonic-clonic activity en route to the ED, so they gave the patient Versed 5 mg IV. Per EMS, patient has been postictal/unresponsive since they have been with him. Per EMS, the patient reportedly has daily seizures. Per EMS, the patient's blood glucose was checked and was 100. Patient is postictal/unresponsive at this time. - Related Data Home Medications Medication Instructions Recorded Confirmed Loratadine [Claritin] 10 mg PO DAILY 01/28/18 11/23/23 Montelukast [Singulair] 10 mg PO DAILY 01/28/18 11/23/23 Fluticasone Propion/Salmeterol 2 puff INHALATION RT-DAILY 07/25/20 11/23/23 [Advair Hfa 230-21 Mcg Inhaler] Valtoco 10 Mg/[place] 1 spray NASAL DIRECTED PRN 02/24/22 11/23/23 Butalb/APAP/Caff 50-325-40Mg 1 tab PO BID PRN 12/02/22 11/23/23 [Fioricet 50-325-40] levETIRAcetam [Keppra] 1,500 mg PO Q12HR 12/02/22 11/23/23 ARIPiprazole [Abilify] 15 mg PO HS 08/05/23 11/23/23 Albuterol Sulfate [Albuterol 2 puff PO RT-Q6H PRN 08/05/23 11/23/23 Sulfate Hfa] Cholecalciferol (Vitamin D3) 50 mcg PO DAILY 08/05/23 11/23/23 [Vitamin D3 (50 Mcg = 2000 Iu)] lisinopriL [Zestril] 5 mg PO DAILY 08/29/23 11/23/23 Naproxen [Naprosyn] 500 mg PO BID PRN 11/23/23 11/23/23 Previous Rx's Medication Instructions Recorded Lacosamide [Vimpat] 50 mg PO BID #60 tab 08/06/23 Allergies Allergy/AdvReac Type Severity Reaction Status Date / Time diphenhydramine Allergy Confusion Verified 11/23/23 17:55 [From Benadryl] Sulfa (Sulfonamide Allergy Swelling Verified 11/23/23 17:55 Antibiotics) sulfamethoxazole Allergy Swelling Verified 11/23/23 17:55 [From Bactrim] trimethoprim [From Bactrim] Allergy Swelling Verified 11/23/23 17:55 Review of Systems ROS Statement: Those systems with pertinent positive or pertinent negative responses have been documented in the HPI. ROS Other: All systems not noted in ROS Statement are negative. Limitations: ROS unobtainable due to patients medical condition 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 Date of last positivie culture/infection: 2005 MDRO Source:: leg Past Surgical History: Hernia Repair Additional Past Surgical History / Comment(s): forehead reconstruction for head lac as child, VNS implant Past Anesthesia/Blood Transfusion Reactions: No Reported Reaction Past Psychological History: Bipolar, Depression, PTSD, Schizoaffective Disorder Smoking Status: Former smoker Past Alcohol Use History: Occasional Past Drug Use History: Marijuana - Past Family History Father Family Medical History: Cancer Additional Family Medical History / Comment(s): ADOPTED-NOT TOTALLY SURE OF HHX Mother Family Medical History: Cancer Additional Family Medical History / Comment(s): ADOPTED-NOT TOTALLY SURE OF HHX General Exam Limitations: altered mental status General appearance: other (Patient is postictal/unresponsive) Head exam: Present: atraumatic, normocephalic Eye exam: Present: PERRL ENT exam: Present: mucous membranes moist, TM's normal bilaterally Neck exam: Present: other (Trachea is in midline) Respiratory exam: Present: normal lung sounds bilaterally. Absent: respiratory distress, wheezes, rales, rhonchi, stridor Cardiovascular Exam: Present: regular rate, normal rhythm, normal heart sounds, other (Normal radial and dorsalis pedis pulses bilaterally) GI/Abdominal exam: Present: soft, other (Obese abdomen). Absent: tenderness, guarding Extremities exam: Present: normal inspection, other (Pelvis is stable and without any apparent tenderness) Back exam: Present: normal inspection Neurological exam: Present: other (Patient is postictal/unresponsive at this time; patient localizes the pain in all 4 extremities; patient moving all 4 extremities spontaneously; PERRL) Skin exam: Present: warm, dry, intact, normal color Course Vital Signs 11/23/23 16:11 Temperature 98.3 F Pulse Rate 84 Respiratory 20 Rate Blood Pressure 137/78 O2 Sat by Pulse 95 Oximetry - Reevaluation(s) Reevaluation #1: 11/23/23 17:24 Patient remains unresponsive, and he is now demonstrating some potential seizure activity. Patient appears tremulous in all [address] has been ordered. Ativan 2 mg IV has been ordered as well. 11/23/23 19:10 Patient is now alert and responsive. Patient is still somewhat postictal in appearance and slow to respond, but he is completely oriented. Patient states that he has been compliant with all of his seizure medications. Patient states that his neurologist is Dr. Chappell in [place]. Patient and friend (at bedside) are aware of the patient's test results. Patient agrees with hospital admission for observation at this time. 11/23/23 19:31 Case, H&P, test results and ED/EMS management were discussed with [facility] Rendon. She accepts hospital admission. She has no further recommendations at this time. EKG Findings - EKG Comments: EKG Findings:: ED physician interpretation (interpreted by me): Sinus rhythm with first-degree AV block, no ectopy, ventricular rate of 84 bpm, TX interval of 232 ms, normal QRS duration, normal QT interval, normal axis, no ST or T wave abnormality Medical Decision Making - Medical Decision Making Was pt. sent in by a medical professional or institution (, PA, CRYPTOLOGIC SUPPORT SPECIALIST, urgent care, hospital, or [place] health [place] facility...) When possible be specific @ -No Did you speak to anyone other than the patient for history (EMS, parent, family, police, friend...)? What history was obtained from this source @ -History was obtained from EMS. Did you review nursing and triage notes (agree or disagree)? Why? @ -I reviewed and agree with nursing and triage notes Were old charts reviewed (outside hosp., previous admission, EMS record, old EKG, old radiological studies, urgent care reports/EKG's, [place] health [place] records)? Report findings @ -No old charts were reviewed Differential Diagnosis (chest pain, altered mental status, abdominal pain women, abdominal pain men, vaginal bleeding, weakness, fever, dyspnea, syncope, headache, dizziness, GI bleed, back pain, seizure, CVA, palpatations, mental health, musculoskeletal)? @ -Seizure disorder, epilepsy, alcohol withdrawal, drug abuse, medication non compliance, electrolyte abnormality, syncope, dysrhythmia, dehydration EKG interpreted by me (3pts min.). @ -As above X-rays interpreted by me (1pt min.). @ -None done CT interpreted by me (1pt min.). @ -Noncontrast head CT was reviewed myself and shows no acute intracranial abnormality. I agree with the radiologist's interpretation as above. U/S interpreted by me (1pt. min.). @ -None done What testing was considered but not performed or refused? (CT, X-rays, U/S, labs)? Why? @ -None What meds were considered but not given or refused? Why? @ -None Did you discuss the management of the patient with other professionals (professionals i.e. , PA, CRYPTOLOGIC SUPPORT SPECIALIST, lab, RT, psych nurse, high school social studies teacher, wicker worker, teacher, airplane first officer, top case assembler)? Give summary @ -No Was smoking cessation discussed for >3mins.? @ -No Was critical care preformed (if so, how long)? @ -No Were there social determinants of health that impacted care today? How? (Homelessness, low income, unemployed, alcoholism, drug addiction, transportation, low edu. Level, literacy, decrease access to med. care, penitentiary, rehab)? @ -No Was there de-escalation of care discussed even if they declined (Discuss DNR or withdrawal of care, Hospice)? DNR status @ -No What co-morbidities impacted this encounter? (DM, HTN, Smoking, COPD, CAD, Cancer, CVA, ARF, Chemo, Hep., AIDS, mental health diagnosis, sleep apnea, morbid obesity)? @ -Seizure disorder Was patient admitted / discharged? Hospital course, mention meds given and r oute, prescriptions, significant lab abnormalities, going to OR and other pertinent info. @ -Patient presented to the ED/postictal/unresponsive, but he has no alert and responsive. Patient is still postictal/slow to respond. Patient has no neurological deficits on exam. Patient's labs and noncontrast head CT are fairly unremarkable. Will admit the patient to the hospital for seizure observation neurology consultation. [facility] CRYPTOLOGIC SUPPORT SPECIALIST Julieta has accepted hospital admission. Patient agrees with this plan. Undiagnosed new problem with uncertain prognosis? @ -No Drug Therapy requiring intensive monitoring for toxicity (Heparin, Nitro, Insulin, Cardizem)? @ -No Were any procedures done? @ -No Diagnosis/symptom? @ -Seizure disorder Acute, or Chronic, or Acute on Chronic? @ -Chronic Uncomplicated (without systemic symptoms) or Complicated (systemic symptoms)? @ -Default Side effects of treatment? @ -No Exacerbation, Progression, or Severe Exacerbation? @ -No Poses a threat to life or bodily function? How? (Chest pain, [place], [place], pneumonia, PE, COPD, DKA, ARF, appy, cholecystitis, CVA, Diverticulitis, Homicidal, Suicidal, threat to staff... and all critical care pts) @ -No - Lab Data Result diagrams: 11/23/23 16:18 11/23/23 16:18 Lab Results 11/23/23 11/23/23 11/23/23 Range/Units 16:18 16:18 16:18 WBC 5.3 (3.8-10.6) k/uL RBC 4.94 (4.30-5.90) m/uL Hgb 14.4 (13.0-17.5) gm/dL Hct 43.1 (39.0-53.0) % MCV 87.3 (80.0-100.0) fL MCH 29.1 (25.0-35.0) pg MCHC 33.4 (31.0-37.0) g/dL RDW 12.7 (11.5-15.5) % Plt Count 243 (150-450) k/uL MPV 7.2 Neutrophils % 58 % Lymphocytes % 28 % Monocytes % 9 % Eosinophils % 3 % Basophils % 1 % Neutrophils # 3.0 (1.3-7.7) k/uL Lymphocytes # 1.5 (1.0-4.8) k/uL Monocytes # 0.5 (0-1.0) k/uL Eosinophils # 0.1 (0-0.7) k/uL Basophils # 0.1 (0-0.2) k/uL Sodium 135 L (137-145) mmol/L Potassium 3.7 (3.5-5.1) mmol/L Chloride 98 (98-107) mmol/L Carbon Dioxide 26 (22-30) mmol/L Anion Gap 11 mmol/L BUN 11 (9-20) mg/dL Creatinine 0.83 (0.66-1.25) mg/dL Est GFR (CKD-EPI)AfAm >90 (>60 ml/min/1.73 sqM) Est GFR (CKD-EPI)NonAf >90 (>60 ml/min/1.73 sqM) Glucose 97 (74-99) mg/dL Plasma Lactic Acid Jorje 1.4 (0.7-2.0) mmol/L Calcium 9.6 (8.4-10.2) mg/dL Magnesium 2.0 (1.6-2.3) mg/dL Total Bilirubin 0.6 (0.2-1.3) mg/dL AST 43 (17-59) U/L ALT 68 H (4-49) U/L Alkaline Phosphatase 61 (38-126) U/L Total Protein 7.0 (6.3-8.2) g/dL Albumin 4.4 (3.5-5.0) g/dL - Radiology Data Noncontrast head CT: No acute intracranial abnormality seen. Disposition Clinical Impression: Epileptic seizure, generalized Disposition: ADMITTED IP TO THIS [facility] Condition: Stable Is patient prescribed a controlled substance at d/c from ED?: No Referrals: Marycarmen Gaston MD [Primary Care Provider] - 1-2 days Time of Disposition: 19:32
[2023-11-23 16:25] LABS: Basophils # (A) 0.1 k/uL (0-0.2); Basophils % (A) 1 %; Eosinophils # (A) 0.1 k/uL (0-0.7); Eosinophils % (A) 3 %; HCT 43.1 % (39.0-53.0); HGB 14.4 gm/dL (13.0-17.5); Lymphocytes # (A) 1.5 k/uL (1.0-4.8); Lymphocytes % (A) 28 %; MCH 29.1 pg (25.0-35.0); MCHC 33.4 g/dL (31.0-37.0); MCV 87.3 fL (80.0-100.0); Mean Platelet Volume 7.2; Monocytes # (A) 0.5 k/uL (0-1.0); Monocytes % (A) 9 %; Neutrophils % (A) 58 %; Platelet Count 243 k/uL (150-450); RBC 4.94 m/uL (4.30-5.90); RDW 12.7 % (11.5-15.5); WBC 5.3 k/uL (3.8-10.6)
[2023-11-23 16:48] LABS: Potassium 3.7 mmol/L (3.5-5.1); Sodium 135 mmol/L (137-145)
[2023-11-23 16:49] LABS: ALT 68 U/L (4-49); AST 43 U/L (17-59); African American GFR (CKD) >90 (>60 ml/min/1.73 sqM); Albumin 4.4 g/dL (3.5-5.0); Alkaline Phosphatase 61 U/L (38-126); Anion Gap 11 mmol/L; Blood Urea Nitrogen 11 mg/dL (9-20); Calcium 9.6 mg/dL (8.4-10.2); Carbon Dioxide 26 mmol/L (22-30); Chloride 98 mmol/L (98-107); Glucose 97 mg/dL (74-99); Non-African American GFR(CKD) >90 (>60 ml/min/1.73 sqM); Total Bilirubin 0.6 mg/dL (0.2-1.3)
[2023-11-23] MEDS: LORazepam 2 MG/ML INJ IV STA (17:31)
--- NOTE | 2023-11-23 18:44 | CT ---
EXAMINATION TYPE: CT brain wo con DATE OF EXAM: 11/23/2023 COMPARISON: 10/09/2022 HISTORY: 33-year-old male Seizure, unresponsive. TECHNIQUE: Examination was done in axial plane without intravenous contrast. Coronal and sagittal r econstructions performed. CT DLP: 1241.4 mGycm Automated exposure control for dose reduction was used. FINDINGS: There is no evidence of acute intracranial hemorrhage, acute ischemic changes, mass, mass-effect, or extra-axial fluid collection. There is no effacement of cerebral sulci or basal subarachnoid cister ns. There is no hydrocephalus. There is no midline shift. Ochoa-white matter distinction is preserv ed. Paranasal sinuses and mastoid air cells are well pneumatized. Orbits and globes are intact. IMPRESSION: No acute intracranial abnormality seen. [facility], , 11/23/2023 6:42 PM
[2023-11-23] MEDS ORDERED: NALOXONE 0.4 MG/ML 1 ML VIAL IV PRN (19:32)
[2023-11-23] MEDS: LACOSAMIDE 50 MG TABLET PO SCH (21:15)
[2023-11-23] MEDS: ARIPiprazole 15 MG TAB PO SCH (21:15)
[2023-11-23 21:40] LABS: Amphetamine Screen,Urine Not Detected (NotDetected); Barbiturate Screen,Urine Not Detected (NotDetected); Benzodiazepines Screen,Urine Not Detected (NotDetected); Cocaine Screen,Urine Not Detected (NotDetected); Methadone Screen, Urine Not Detected (NotDetected); Opiate Screen,Urine Not Detected (NotDetected); Oxycodone Screen, Urine Not Detected (NotDetected); Phencyclidine Screen,Urine Not Detected (NotDetected); Tricyclic Antidepressant,Urine Not Detected (NotDetected); Urn Cannabinoid Scrn Not Detected (NotDetected)
[2023-11-24 03:25] VITALS: RESP 16
[2023-11-24 07:44] VITALS: TEMP 98.2
[2023-11-24] MEDS: MONTELUKAST 10 MG TAB PO SCH (08:13)
[2023-11-24] MEDS: lisinopriL 5 MG TAB PO SCH (08:14)
[2023-11-24 09:30] LABS: BUN/Creat Ratio 9.89 Ratio (12.00-20.00); Blood Urea Nitrogen 8.9 mg/dL (9.0-27.0); Chloride 106 mmol/L (96-109); Glucose 97 mg/dL (70-110); Potassium 3.9 mmol/L (3.5-5.5); Sodium 140 mmol/L (135-145)
[2023-11-24 09:31] LABS: ALT 68 U/L (10-49); AST 38 U/L (14-35); Albumin 4.2 g/dL (3.8-4.9); Alkaline Phosphatase 76 U/L (41-126); Calcium 8.9 mg/dL (8.7-10.3); Globulin 2.1 g/dL (1.6-3.3); Total Bilirubin 0.4 mg/dL (0.3-1.2); Total Protein 6.3 g/dL (6.2-8.2)
[2023-11-24 09:33] LABS: Basophils # (A) 0.04 X 10*3/uL (0.00-0.10); Basophils % (A) 0.6 %; Eosinophils # (A) 0.17 X 10*3/uL (0.04-0.35); Eosinophils % (A) 2.5 %; HCT 43.5 % (39.6-50.0); HGB 14.6 g/dL (13.0-17.0); Lymphocytes # (A) 2.49 X 10*3/uL (0.90-5.00); Lymphocytes % (A) 35.9 %; MCH 29.4 pg (27.0-32.0); MCHC 33.6 g/dL (32.0-37.0); MCV 87.7 FL (80.0-97.0); Mean Platelet Volume 10.4 FL (9.5-12.2); Monocytes # (A) 0.62 X 10*3/uL (0.20-1.00); Monocytes % (A) 8.9 %; NRBC Per 100 WBC 0 X 10*3/uL (0.00-0.01); Neutrophils # (A) 3.58 X 10*3/uL (1.80-7.70); Neutrophils % (A) 51.7 %; Platelet Count 257 X 10*3/uL (140-440); RBC 4.96 X 10*6/uL (4.40-5.60); WBC 6.93 X 10*3/uL (4.50-10.00)
[2023-11-24] MEDS ORDERED: ALBUTEROL NEBULIZED 2.5 MG/3 ML INHALATION PRN (10:14)
[2023-11-24] MEDS ORDERED: NAPROXEN 250 MG TAB PO PRN (10:14)
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
[2023-11-24] MEDS: Lacosamide IV (ages 17+ yrs) 200 MG/20 ML ML IVP ONE (14:02)
[2023-11-24 14:15] VITALS: BP 123/77; PULSE 82
[2023-11-24] MEDS ORDERED: LACOSAMIDE 50 MG TABLET PO SCH (21:00)
[2023-11-25] MEDS ORDERED: SYMBICORT 160-4.5 MCG INHALER INHALATION SCH (08:00)
[2023-11-25] MEDS ORDERED: LORATADINE 10 MG TAB PO SCH (09:00)
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
== END 2023-11-24 15:09 | disposition home or self-care (01) ==
LOC: EC 15:59 → 6NMEDSUR 19:32
PROVIDERS: ADMIT Internal Medicine; ATTEND Internal Medicine
DX: G40.409 Other generalized epilepsy and epileptic syndromes, not intractable, without status epilepticus (principal); I44.0 Atrioventricular block, first degree; I10 Essential (primary) hypertension; R74.01 Elevation of levels of liver transaminase levels; F25.9 Schizoaffective disorder, unspecified; F31.9 Bipolar disorder, unspecified; F43.10 Post-traumatic stress disorder, unspecified; Z79.51 Long term (current) use of inhaled steroids; Z79.899 Other long term (current) drug therapy; Z88.1 Allergy status to other antibiotic agents; Z88.2 Allergy status to sulfonamides; Z88.8 Allergy status to other drugs, medicaments and biological substances; Z87.891 Personal history of nicotine dependence
CPT/HCPCS: 36415; 70450; 80053; 80177; 80306; 83605; 83735; 85025; 93005; 96374; 96375; 99285

== ENCOUNTER 2023-11-26 21:10 | Emergency (ER) | payer OTHER ==
[2023-11-26 21:14] VITALS: TEMP 98.6
--- NOTE | 2023-11-26 21:27 | ED ---
Seizure HPI - General Chief Complaint: Seizure Stated Complaint: Seizure Time Seen by Provider: 11/26/23 21:12 Source: patient Mode of arrival: ambulatory Limitations: no limitations - History of Present Illness Initial Comments: This patient is a 33-year-old man with history of seizure disorder including having brain stimulator placement, brought by ambulance to have evaluation after he developed seizure tonight. Patient's associate states that he had been talking with his sister while he was sitting in the grass and then he developed tonic-clonic seizure. She did use his brain stimulator but he did have continued shaking. She called EMS they noted the patient having some shaking movements and gave Versed 10 mg and transported the patient here. MD Complaint: seizure -: minutes(s) Description of Episode: loss of consciousness, tonic-clonic movement -: minutes(s) Witnessed: yes - by bystander Trauma: No Seizure History: known seizure disorder Place: street/outdoors Possible Precipitating Event: stress Associated Symptoms: denies other symptoms Treatments Prior to Arrival: benzodiazepines - Related Data Home Medications Medication Instructions Recorded Confirmed Loratadine [Claritin] 10 mg PO DAILY 01/28/18 11/23/23 Montelukast [Singulair] 10 mg PO DAILY 01/28/18 11/23/23 Fluticasone Propion/Salmeterol 2 puff INHALATION RT-DAILY 07/25/20 11/23/23 [Advair Hfa 230-21 Mcg Inhaler] Valtoco 10 Mg/[place] 1 spray NASAL DIRECTED PRN 02/24/22 11/23/23 Butalb/APAP/Caff 50-325-40Mg 1 tab PO BID PRN 12/02/22 11/23/23 [Fioricet 50-325-40] levETIRAcetam [Keppra] 1,500 mg PO Q12HR 12/02/22 11/23/23 ARIPiprazole [Abilify] 15 mg PO HS 08/05/23 11/23/23 Albuterol Sulfate [Albuterol 2 puff PO RT-Q6H PRN 08/05/23 11/23/23 Sulfate Hfa] Cholecalciferol (Vitamin D3) 50 mcg PO DAILY 08/05/23 11/23/23 [Vitamin D3 (50 Mcg = 2000 Iu)] Naproxen [Naprosyn] 500 mg PO BID PRN 11/23/23 11/23/23 Previous Rx's Medication Instructions Recorded Lacosamide [Vimpat] 50 mg PO BID #60 tab 08/06/23 lisinopriL [Zestril] 2.5 mg PO DAILY #0 11/24/23 Allergies Allergy/AdvReac Type Severity Reaction Status Date / Time diphenhydramine Allergy Confusion Verified 11/23/23 17:55 [From Benadryl] Sulfa (Sulfonamide Allergy Swelling Verified 11/23/23 17:55 Antibiotics) sulfamethoxazole Allergy Swelling Verified 11/23/23 17:55 [From Bactrim] trimethoprim [From Bactrim] Allergy Swelling Verified 11/23/23 17:55 Review of Systems ROS Statement: Those systems with pertinent positive or pertinent negative responses have been documented in the HPI. ROS Other: All systems not noted in ROS Statement are negative. Limitations: ROS unobtainable due to patients medical condition Constitutional: Denies: fever Respiratory: Denies: cough, dyspnea Gastrointestinal: Denies: vomiting Neurological: Denies: headache 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 Date of last positivie culture/infection: 2005 MDRO Source:: leg Past Surgical History: Hernia Repair Additional Past Surgical History / Comment(s): forehead reconstruction for head lac as child, VNS implant Past Anesthesia/Blood Transfusion Reactions: No Reported Reaction Past Psychological History: Bipolar, Depression, PTSD, Schizoaffective Disorder Smoking Status: Former smoker Past Alcohol Use History: Occasional Past Drug Use History: Marijuana - Past Family History Father Family Medical History: Cancer Additional Family Medical History / Comment(s): ADOPTED-NOT TOTALLY SURE OF HHX Mother Family Medical History: Cancer Additional Family Medical History / Comment(s): ADOPTED-NOT TOTALLY SURE OF HHX General Exam Limitations: no limitations General appearance: obtunded Head exam: Present: atraumatic, normocephalic Eye exam: Present: normal appearance, PERRL. Absent: scleral icterus, conjunctival injection ENT exam: Present: normal oropharynx Neck exam: Present: normal inspection. Absent: tenderness, meningismus Respiratory exam: Present: normal lung sounds bilaterally. Absent: respiratory distress, wheezes, rales, rhonchi, stridor, accessory muscle use Cardiovascular Exam: Present: regular rate, normal rhythm, normal heart sounds. Absent: systolic murmur, diastolic murmur, rubs, gallop GI/Abdominal exam: Present: soft. Absent: distended, tenderness, guarding, rebound, rigid, mass Extremities exam: Present: normal inspection, normal capillary refill. Absent: pedal edema, calf tenderness Back exam: Present: normal inspection Neurological exam: Present: altered, reflexes normal Skin exam: Present: warm, dry, intact, normal color. Absent: rash Course Vital Signs 11/26/23 11/26/23 11/26/23 21:11 22:01 22:15 Temperature 98.6 F Pulse Rate 102 H 97 96 Respiratory 20 18 18 Rate Blood Pressure 109/93 123/80 138/85 O2 Sat by Pulse 98 98 96 Oximetry 11/26/23 23:00 Temperature Pulse Rate 85 Respiratory 18 Rate Blood Pressure 122/75 O2 Sat by Pulse 95 Oximetry Medical Decision Making - Medical Decision Making Was pt. sent in by a medical professional or institution ([facility], [facility], urgent care, hospital, or half-way...) When possible be specific @ -[No] Did you speak to anyone other than the patient for history (EMS, parent, family, police, friend...)? What history was obtained from this source @ -[EMS gave history Did you review nursing and triage notes (agree or disagree)? Why? @ -[I reviewed and agree with nursing and triage notes] Were old charts reviewed (outside hosp., previous admission, EMS record, old EKG, old radiological studies, urgent care reports/EKG's, half-way records)? Report findings @ -Yes, old charts were reviewed] Differential Diagnosis (chest pain, altered mental status, abdominal pain women, abdominal pain men, vaginal bleeding, weakness, fever, dyspnea, syncope, headache, dizziness, GI bleed, back pain, seizure, CVA, palpatations, mental health, musculoskeletal)? @ -[Differential Seizure: Recurrent seizure disorder, febrile seizure, alcohol withdrawal, stimulants, meningitis, encephalitis, intercranial hemorrhage, intracranial tumor, stroke, eclampsia, thyrotoxicosis, hypocalcemia, hyponatremia, hypernatremia, hypomagnesemia, psychogenic, this is not meant to be an all-inclusive list. EKG interpreted by me (3pts min.). @ -[As above] X-rays interpreted by me (1pt min.). @ -[None done] CT interpreted by me (1pt min.). @ -[None done] U/S interpreted by me (1pt. min.). @ -[None done] What testing was considered but not performed or refused? (CT, X-rays, U/S, labs)? Why? @ -[None] What meds were considered but not given or refused? Why? @ -[None] Did you discuss the management of the patient with other professionals (professionals i.e. , PA, SPANISHER, lab, RT, psych nurse, social media community manager, billing coordinator, teacher, housing management officer, case managers)? Give summary @ -[No] Was smoking cessation discussed for >3mins.? @ -[No] Was critical care preformed (if so, how long)? @ -[No] Were there social determinants of health that impacted care today? How? (Homelessness, low income, unemployed, alcoholism, drug addiction, transportation, low edu. Level, literacy, decrease access to med. care, custodial, rehab)? @ -[No] Was there de-escalation of care discussed even if they declined (Discuss DNR or withdrawal of care, Hospice)? DNR status @ -[No] What co-morbidities impacted this encounter? (DM, HTN, Smoking, COPD, CAD, Cancer, CVA, ARF, Chemo, Hep., AIDS, mental health diagnosis, sleep apnea, morbid obesity)? @ -[Chronic seizure disorder Was patient admitted / discharged? Hospital course, mention meds given and route, prescriptions, significant lab abnormalities, going to OR and other pertinent info. @ -[This patient is 33-year-old man with history of seizures brought to have evaluation after having another seizure. The patient has returned to baseline. He was alert, he did tolerate oral intake, was feeling better and wanted to go. Undiagnosed new problem with uncertain prognosis? @ -[No] Drug Therapy requiring intensive monitoring for toxicity (Heparin, Nitro, Insulin, Cardizem)? @ -[No] Were any procedures done? @ -[No] Diagnosis/symptom? @ -[Acute seizure Acute, or Chronic, or Acute on Chronic? @ -[Acute Uncomplicated (without systemic symptoms) or Complicated (systemic symptoms)? @ -[Uncomplicated Side effects of treatment? @ -[No] Exacerbation, Progression, or Severe Exacerbation? @ -[No] Poses a threat to life or bodily function? How? (Chest pain, [place], [place], pneumonia, PE, COPD, DKA, ARF, appy, cholecystitis, CVA, Diverticulitis, Homicidal, Suicidal, threat to staff... and all critical care pts) @ -[No] - Lab Data Result diagrams: 11/26/23 21:25 11/26/23 21: Lab Results 11/26/23 11/26/23 11/26/23 Range/Units : 21:: WBC 8.2 (3.8-10.6) k/uL RBC 5.23 (4.30-5.90) m/uL Hgb 15.2 (13.0-17.5) gm/dL Hct 45.7 (39.0-53.0) % MCV 87.4 (80.0-100.0) fL MCH 29.0 (25.0-35.0) pg MCHC 33.2 (31.0-37.0) g/dL RDW 12.7 (11.5-15.5) % Plt Count 268 (150-450) k/uL MPV 7.1 Neutrophils % 59 % Lymphocytes % 29 % Monocytes % 8 % Eosinophils % 2 % Basophils % 1 % Neutrophils # 4.8 (1.3-7.7) k/uL Lymphocytes # 2.3 (1.0-4.8) k/uL Monocytes # 0.6 (0-1.0) k/uL Eosinophils # 0.2 (0-0.7) k/uL Basophils # 0.0 (0-0.2) k/uL Sodium 139 (137-145) mmol/L Potassium 4.0 (3.5-5.1) mmol/L Chloride 103 (98-107) mmol/L Carbon Dioxide 25 (22-30) mmol/L Anion Gap 11 mmol/L BUN 15 (9-20) mg/dL Creatinine 0.96 (0.66-1.25) mg/dL Est GFR (CKD-EPI)AfAm >90 (>60 ml/min/1.73 sqM) Est GFR (CKD-EPI)NonAf >90 (>60 ml/min/1.73 sqM) Glucose 96 (74-99) mg/dL Plasma Lactic Acid Jorje 1.3 (0.7-2.0) mmol/L Calcium 9.5 (8.4-10.2) mg/dL Magnesium 1.9 (1.6-2.3) mg/dL Total Bilirubin 0.5 (0.2-1.3) mg/dL AST 41 (17-59) U/L ALT 68 H (4-49) U/L Alkaline Phosphatase 72 (38-126) U/L Total Protein 7.4 (6.3-8.2) g/dL Albumin 4.7 (3.5-5.0) g/dL Disposition Clinical Impression: Generalized seizure Disposition: HOME SELF-CARE Condition: Good Instructions (If sedation given, give patient instructions): Seizure/Epilepsy Discharge Instructions & Follow-Up Is patient prescribed a controlled substance at d/c from ED?: No Referrals: Marycarmen Gaston MD [Primary Care Provider] - 1-2 days
[2023-11-26] MEDS: SODIUM CHLORIDE 0.9% 500 ML 500 ML IV STA (21:29)
[2023-11-26 21:38] LABS: Basophils % (A) 1 %; Eosinophils # (A) 0.2 k/uL (0-0.7); Eosinophils % (A) 2 %; HCT 45.7 % (39.0-53.0); HGB 15.2 gm/dL (13.0-17.5); Lymphocytes # (A) 2.3 k/uL (1.0-4.8); Lymphocytes % (A) 29 %; MCHC 33.2 g/dL (31.0-37.0); MCV 87.4 fL (80.0-100.0); Mean Platelet Volume 7.1; Monocytes # (A) 0.6 k/uL (0-1.0); Monocytes % (A) 8 %; Neutrophils # (A) 4.8 k/uL (1.3-7.7); Neutrophils % (A) 59 %; Platelet Count 268 k/uL (150-450); RBC 5.23 m/uL (4.30-5.90); RDW 12.7 % (11.5-15.5); WBC 8.2 k/uL (3.8-10.6)
[2023-11-26 22:02] VITALS: RESP 18
[2023-11-26 22:30] LABS: ALT 68 U/L (4-49); AST 41 U/L (17-59); African American GFR (CKD) >90 (>60 ml/min/1.73 sqM); Albumin 4.7 g/dL (3.5-5.0); Alkaline Phosphatase 72 U/L (38-126); Anion Gap 11 mmol/L; Blood Urea Nitrogen 15 mg/dL (9-20); Calcium 9.5 mg/dL (8.4-10.2); Carbon Dioxide 25 mmol/L (22-30); Chloride 103 mmol/L (98-107); Glucose 96 mg/dL (74-99); Magnesium 1.9 mg/dL (1.6-2.3); Non-African American GFR(CKD) >90 (>60 ml/min/1.73 sqM); Sodium 139 mmol/L (137-145); Total Bilirubin 0.5 mg/dL (0.2-1.3); Total Protein 7.4 g/dL (6.3-8.2)
[2023-11-26 23:29] VITALS: BP 122/75; PULSE 85
== END 2023-11-26 23:52 | disposition home or self-care (01) ==
LOC: EC 21:10
CPT/HCPCS: 36415; 80053; 83605; 83735; 85025; 96360; 99285

== ENCOUNTER 2024-01-05 18:26 | Emergency (ER) | payer OTHER ==
[2024-01-05 18:41] VITALS: RESP 18; TEMP 98.7
--- NOTE | 2024-01-05 18:48 | ED ---
General Adult HPI - General Chief complaint: Seizure Stated complaint: seizure Time Seen by Provider: 01/05/24 18:28 Source: EMS Mode of arrival: EMS - History of Present Illness Initial comments: Dictation was produced using [employer] dictation software. please excuse any grammatical, word or spelling errors. Chief Complaint: 33-year-old male presents emergency department suicidal ideation and fever History of Present Illness: 33-year-old male. History present illness obtained from who is at the bedside. According to there was a call from dispatch of a suicidal male who had a machete in his hand. Patient emergently has history of seizure disorder. Patient was evaluated by police and all of a sudden started to have a seizure. EMS was called and patient was brought to the emergency room. Patient unable to fight history present illness at this time due to current mental condition. Unable to obtain ROS secondary to mental status - Related Data Home Medications Medication Instructions Recorded Confirmed Loratadine [Claritin] 10 mg PO DAILY 01/28/18 01/05/24 Montelukast [Singulair] 10 mg PO DAILY 01/28/18 01/05/24 Fluticasone Propion/Salmeterol 2 puff INHALATION RT-DAILY 07/25/20 01/05/24 [Advair Hfa 230-21 Mcg Inhaler] Butalb/APAP/Caff 50-325-40Mg 1 tab PO BID PRN 12/02/22 01/05/24 [Fioricet 50-325-40] levETIRAcetam [Keppra] 1,500 mg PO Q12HR 12/02/22 01/05/24 ARIPiprazole [Abilify] 15 mg PO HS 08/05/23 01/05/24 Albuterol Sulfate [Albuterol 2 puff INHALATION RT-Q6H PRN 08/05/23 01/05/24 Sulfate Hfa] Cholecalciferol (Vitamin D3) 50 mcg PO DAILY 08/05/23 01/05/24 [Vitamin D3 (50 Mcg = 2000 Iu)] Naproxen [Naprosyn] 500 mg PO BID PRN 11/23/23 01/05/24 Lacosamide [Vimpat] 100 mg PO BID 01/05/24 01/05/24 Midazolam [Nayzilam] 1 spray NASAL ONCE PRN 01/05/24 01/05/24 lisinopriL [Zestril] 5 mg PO DAILY 01/05/24 01/05/24 Allergies Allergy/AdvReac Type Severity Reaction Status Date / Time diphenhydramine Allergy Confusion Verified 01/05/24 18:49 [From Benadryl] Sulfa (Sulfonamide Allergy Swelling Verified 01/05/24 18:49 Antibiotics) sulfamethoxazole Allergy Swelling Verified 01/05/24 18:49 [From Bactrim] trimethoprim [From Bactrim] Allergy Swelling Verified 01/05/24 18:49 Review of Systems ROS Statement: Those systems with pertinent positive or pertinent negative responses have been documented in the HPI. ROS Other: All systems not noted in ROS Statement are negative. 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 Date of last positivie culture/infection: 2005 MDRO Source:: leg Past Surgical History: Hernia Repair Additional Past Surgical History / Comment(s): forehead reconstruction for head lac as child, VNS implant Past Anesthesia/Blood Transfusion Reactions: No Reported Reaction Past Psychological History: Bipolar, Depression, PTSD, Schizoaffective Disorder Smoking Status: Former smoker Past Alcohol Use History: Occasional Past Drug Use History: Marijuana - Past Family History Father Family Medical History: Cancer Additional Family Medical History / Comment(s): ADOPTED-NOT TOTALLY SURE OF HHX Mother Family Medical History: Cancer Additional Family Medical History / Comment(s): ADOPTED-NOT TOTALLY SURE OF HHX General Exam - General Exam Comments Initial Comments: PHYSICAL EXAM: General Impression: Comfortably, not in acute distress HEENT: Normocephalic atraumatic, extra-ocular movements intact, pupils equal and reactive to light bilaterally, mucous membranes moist. Cardiovascular: Heart regular rate and rhythm Chest: Able to complete full sentences, no retractions, no tachypnea Abdomen: abdomen soft, non-tender, non-distended, no organomegaly Musculoskeletal: Pulses present and equal in all extremities, no peripheral edema Motor: no focal deficits noted Neurological: no focal motor or sensory deficits noted Skin: Intact with no visualized rashes Course Vital Signs 01/05/24 18:35 Temperature 98.7 F Pulse Rate 107 H Respiratory 18 Rate Blood Pressure 140/80 O2 Sat by Pulse 97 Oximetry EKG Findings - EKG Comments: EKG Findings:: My EKG interpretation: Ventricular rate 100, sinus tachycardia,. 188, QRS 110, QTc 408. No OH prolongation, no QTC prolongation, no ST or T-wave changes noted. Overall, this EKG is unremarkable Medical Decision Making - Medical Decision Making Was pt. sent in by a medical professional or institution (, PA, TELEPHONE MAINTAINER, urgent care, hospital, or usp...) When possible be specific @ -No Did you speak to anyone other than the patient for history (EMS, parent, family, police, friend...)? What history was obtained from this source @ -Police as described above Did you review nursing and triage notes (agree or disagree)? Why? @ -I reviewed and agree with nursing and triage notes Were old charts reviewed (outside hosp., previous admission, EMS record, old EKG, old radiological studies, urgent care reports/EKG's, usp records)? Report findings @ -No old charts were reviewed Differential Diagnosis (chest pain, altered mental status, abdominal pain women, abdominal pain men, vaginal bleeding, musculoskeletal, weakness, fever, dyspnea, syncope, headache, dizziness, GI bleed, back pain, seizure, CVA, palpatations, mental health)? @ -Differential Seizure: Recurrent seizure disorder, febrile seizure, alcohol withdrawal, stimulants, meningitis, encephalitis, intercranial hemorrhage, intracranial tumor, stroke, eclampsia, thyrotoxicosis, hypocalcemia, hyponatremia, hypernatremia, hypomagnesemia, psychogenic, this is not meant to be an all-inclusive list. Differential Mental Health: Depression, anxiety, bipolar, psychosis, schizophrenia, borderline personality, situational depression, adjustment disorder, behavioral disorder, brain tumor, malingering, substance abuse, encephalopathy, medication reaction, dementia, hypothyroidism, degenerative neurologic disorder, lupus.... This is not meant to be all-inclusive list EKG interpreted by me (3pts min.). @ -None done X-rays interpreted by me (1pt min.). @ -None done CT interpreted by me (1pt min.). @ -CT brain is nonacute U/S interpreted by me (1pt. min.). @ -None done What testing was considered but not performed or refused? (CT, X-rays, U/S, labs)? Why? @ -None What meds were considered but not given or refused? Why? @ -None Was smoking cessation discussed for >3mins.? @ -No Were there social determinants of health that impacted care today? How? (Homelessness, low income, unemployed, alcoholism, drug addiction, transportation, low edu. Level, literacy, decrease access to med. care, skilled nursing, rehab)? @ -No Was there de-escalation of care discussed even if they declined (Discuss DNR or withdrawal of care, Hospice)? DNR status @ -No What co-morbidities impacted this encounter? (DM, HTN, Smoking, COPD, CAD, Cancer, CVA, ARF, Chemo, Hep., AIDS, mental health diagnosis, sleep apnea, morbid obesity)? @ -Seizure disorder Was patient admitted / discharged? Hospital course, mention meds given and route, prescriptions, significant lab abnormalities, going to OR and other pertinent info. @ -33-year-old male presents to the emergency department for suicidal behavior. He is petitioned by law enforcement. Vital signs upon arrival are within acceptable limits. Patient is clinical presentation not classical for tonic- clonic seizure. Suspect pseudoseizure. Patient takes Keppra and at according to medication history. Patient reevaluated at 7:55 PM he is awake alert with no complaints. States that he gets seizure often. He follows up with Dr. Dukes for outpatient management of his seizure disorder states that he has stress- induced seizures physical examination he has no tongue avulsion. No obvious postictal state, no loss of bowel or bladder control. Laboratory evaluation is unremarkable. Patient medically cleared for EPS evaluation. Patient takes Keppra recommended to him for 1 g IV push. Refusing Keppra and IV fluids. Patient medically cleared for EPS evaluation. EPS and allegedly got into an argument with his sister and became very stressed. Patient otherwise denies any suicidal ideation at the bedside. Patient will be discharged Did you discuss the management of the patient with other professionals (professionals i.e. , PA, TELEPHONE MAINTAINER, lab, RT, psych nurse, pediatric social worker, director of anesthesia services, teacher, reserve officer, bilingual case manager)? Give summary @ -History obtained from border police as described above Was critical care preformed (if so, how long)? @ -No Undiagnosed new problem with uncertain prognosis? @ -No Drug Therapy requiring intensive monitoring for toxicity (Heparin, Nitro, Insulin, Cardizem)? @ -No Were any procedures done? @ -No Diagnosis/symptom? Acute, or Chronic, or Acute on Chronic? Uncomplicated (without systemic symptoms) or Complicated (systemic symptoms)? @ -Suicidal behavior, stress-induced seizure Side effects of treatment? @ -No Exacerbation, Progression, or Severe Exacerbation? @ -No Poses a threat to life or bodily function? How? (Chest pain, [place], [place], pneumonia, PE, COPD, DKA, ARF, appy, cholecystitis, CVA, Diverticulitis, Homicidal, Suicidal, threat to staff... and all critical care pts) @ -yes - Lab Data Result diagrams: 01/05/24 18:55 01/05/24 18:55 Lab Results 01/05/24 01/05/24 01/05/24 Range/Units 18:55 18:55 18:55 WBC 7.0 (3.8-10.6) k/uL RBC 5.09 (4.30-5.90) m/uL Hgb 14.7 (13.0-17.5) gm/dL Hct 43.7 (39.0-53.0) % MCV 85.9 (80.0-100.0) fL MCH 28.9 (25.0-35.0) pg MCHC 33.6 (31.0-37.0) g/dL RDW 13.0 (11.5-15.5) % Plt Count 239 (150-450) k/uL MPV 7.3 Neutrophils % 73 % Lymphocytes % 19 % Monocytes % 6 % Eosinophils % 2 % Basophils % 0 % Neutrophils # 5.1 (1.3-7.7) k/uL Lymphocytes # 1.3 (1.0-4.8) k/uL Monocytes # 0.4 (0-1.0) k/uL Eosinophils # 0.1 (0-0.7) k/uL Basophils # 0.0 (0-0.2) k/uL Sodium 139 (137-145) mmol/L Potassium 3.7 (3.5-5.1) mmol/L Chloride 107 (98-107) mmol/L Carbon Dioxide 24 (22-30) mmol/L Anion Gap 8 mmol/L BUN 12 (9-20) mg/dL Creatinine 0.90 (0.66-1.25) mg/dL Est GFR (CKD-EPI)AfAm >90 (>60 ml/min/1.73 sqM) Est GFR (CKD-EPI)NonAf >90 (>60 ml/min/1.73 sqM) Glucose 97 (74-99) mg/dL Plasma Lactic Acid Jorje 1.1 (0.7-2.0) mmol/L Calcium 9.0 (8.4-10.2) mg/dL Magnesium 1.8 (1.6-2.3) mg/dL Total Bilirubin 0.7 (0.2-1.3) mg/dL AST 42 (17-59) U/L ALT 56 H (4-49) U/L Alkaline Phosphatase 65 (38-126) U/L Total Protein 7.1 (6.3-8.2) g/dL Albumin 4.5 (3.5-5.0) g/dL Salicylates <1.0 mg/dL Acetaminophen <10.0 ug/mL Serum Alcohol <10 mg/dL Disposition Clinical Impression: Seizure, Suicidal behavior Disposition: HOME SELF-CARE Is patient prescribed a controlled substance at d/c from ED?: No Referrals: Marycarmen Gaston MD [Primary Care Provider] - 1-2 days Time of Disposition: 21:28
[2024-01-05 19:10] LABS: Basophils % (A) 0 %; Eosinophils # (A) 0.1 k/uL (0-0.7); Eosinophils % (A) 2 %; HCT 43.7 % (39.0-53.0); HGB 14.7 gm/dL (13.0-17.5); Lymphocytes # (A) 1.3 k/uL (1.0-4.8); Lymphocytes % (A) 19 %; MCH 28.9 pg (25.0-35.0); MCHC 33.6 g/dL (31.0-37.0); MCV 85.9 fL (80.0-100.0); Mean Platelet Volume 7.3; Monocytes # (A) 0.4 k/uL (0-1.0); Monocytes % (A) 6 %; Neutrophils # (A) 5.1 k/uL (1.3-7.7); Neutrophils % (A) 73 %; Platelet Count 239 k/uL (150-450); RBC 5.09 m/uL (4.30-5.90)
[2024-01-05 19:21] LABS: ALT 56 U/L (4-49); AST 42 U/L (17-59); Acetaminophen <10.0 ug/mL; African American GFR (CKD) >90 (>60 ml/min/1.73 sqM); Albumin 4.5 g/dL (3.5-5.0); Alcohol <10 mg/dL; Alkaline Phosphatase 65 U/L (38-126); Anion Gap 8 mmol/L; Blood Urea Nitrogen 12 mg/dL (9-20); Carbon Dioxide 24 mmol/L (22-30); Chloride 107 mmol/L (98-107); Glucose 97 mg/dL (74-99); Magnesium 1.8 mg/dL (1.6-2.3); Non-African American GFR(CKD) >90 (>60 ml/min/1.73 sqM); Potassium 3.7 mmol/L (3.5-5.1); Salicylate <1.0 mg/dL; Sodium 139 mmol/L (137-145); Total Bilirubin 0.7 mg/dL (0.2-1.3); Total Protein 7.1 g/dL (6.3-8.2)
--- NOTE | 2024-01-05 19:28 | CT ---
EXAMINATION TYPE: CT brain wo con DATE OF EXAM: 01/05/2024 7:14 PM COMPARISON: 11/23/2023. CLINICAL INDICATION: Male, 33 years old with history of seizure, Seizure. TECHNIQUE: Brain: Axial CT images of the brain were obtained with coronal and sagittal reformats created and rev iewed. Contrast used: None. Oral contrast used: None. CT DLP: 1129.4 mGycm, Automated exposure control for dose reduction was used. FINDINGS: Brain: Extra-axial spaces: No abnormal extra-axial fluid collections. Ventricular system: Within normal limits Cerebral parenchyma: No acute intraparenchymal hemorrhage or mass effect. The benjamin-white junction is well differentiated. Cerebellum: Unremarkable. Gabriel cisterna magna. Mass effect: No evidence of midline shift. Intracranial vasculature: unremarkable Soft tissues: Normal. Calvarium/osseous structures: No depressed skull fracture. Paranasal sinuses and mastoid air cells: Mild scattered paranasal sinus disease. Visualized orbits: Orbital contents are intact. No radiopaque foreign body definitively visualized. IMPRESSION: No acute intracranial process. [facility], , 01/05/2024 7:26 PM
[2024-01-05] MEDS: levETIRAcetam IV 2,000 MG in SODIUM CHLORIDE 0.9% 250 ML IVPB ONE (20:14)
[2024-01-05 21:54] VITALS: BP 143/78; PULSE 90
== END 2024-01-05 21:57 | disposition home or self-care (01) ==
LOC: EC 18:26
CPT/HCPCS: 36415; 70450; 80053; 80143; 80179; 80320; 82075; 83605; 83735; 85025; 93005; 99285

== ENCOUNTER 2024-02-15 13:43 | Emergency (ER) | payer OTHER ==
[2024-02-15] MEDS: SODIUM CHLORIDE 0.9% 1,000 ML IV STA (14:03)
[2024-02-15 14:08] LABS: Basophils % (A) 1 %; Eosinophils # (A) 0.1 k/uL (0-0.7); Eosinophils % (A) 2 %; HCT 46.5 % (39.0-53.0); HGB 15.5 gm/dL (13.0-17.5); Lymphocytes # (A) 1.9 k/uL (1.0-4.8); Lymphocytes % (A) 33 %; MCHC 33.3 g/dL (31.0-37.0); Mean Platelet Volume 6.9; Monocytes # (A) 0.5 k/uL (0-1.0); Monocytes % (A) 9 %; Neutrophils % (A) 54 %; Platelet Count 229 k/uL (150-450); RBC 5.34 m/uL (4.30-5.90); RDW 12.7 % (11.5-15.5); WBC 5.6 k/uL (3.8-10.6)
[2024-02-15 14:25] LABS: ALT 56 U/L (4-49); AST 48 U/L (17-59); African American GFR (CKD) >90 (>60 ml/min/1.73 sqM); Albumin 4.7 g/dL (3.5-5.0); Alkaline Phosphatase 73 U/L (38-126); Anion Gap 5 mmol/L; Blood Urea Nitrogen 13 mg/dL (9-20); Calcium 9.3 mg/dL (8.4-10.2); Carbon Dioxide 25 mmol/L (22-30); Chloride 108 mmol/L (98-107); Glucose 89 mg/dL (74-99); Magnesium 2.1 mg/dL (1.6-2.3); Non-African American GFR(CKD) >90 (>60 ml/min/1.73 sqM); Potassium 4.6 mmol/L (3.5-5.1); Sodium 138 mmol/L (137-145); Total Bilirubin 0.9 mg/dL (0.2-1.3); Total Protein 7.6 g/dL (6.3-8.2)
--- NOTE | 2024-02-15 14:56 | ED ---
General Adult HPI - General Chief complaint: Seizure Stated complaint: Seizure Time Seen by Provider: 02/15/24 13:49 Source: patient, family, EMS, RN notes reviewed, old records reviewed Mode of arrival: EMS Limitations: altered mental status - History of Present Illness Initial comments: 33-year-old male with known seizure disorder presents with suspected seizure prior to arrival. Patient's states that he was triggered by flashing lights from paramedics and this does induce seizures. is uncertain of his antiepileptic medication. He has a recurrent history of seizures with multiple seizures monthly. Patient does have a vagal nerve stimulator. - Related Data Home Medications Medication Instructions Recorded Confirmed Loratadine [Claritin] 10 mg PO DAILY 01/28/18 01/05/24 Montelukast [Singulair] 10 mg PO DAILY 01/28/18 01/05/24 Fluticasone Propion/Salmeterol 2 puff INHALATION RT-DAILY 07/25/20 01/05/24 [Advair Hfa 230-21 Mcg Inhaler] Butalb/APAP/Caff 50-325-40Mg 1 tab PO BID PRN 12/02/22 01/05/24 [Fioricet 50-325-40] levETIRAcetam [Keppra] 1,500 mg PO Q12HR 12/02/22 01/05/24 ARIPiprazole [Abilify] 15 mg PO HS 08/05/23 01/05/24 Albuterol Sulfate [Albuterol 2 puff INHALATION RT-Q6H PRN 08/05/23 01/05/24 Sulfate Hfa] Cholecalciferol (Vitamin D3) 50 mcg PO DAILY 08/05/23 01/05/24 [Vitamin D3 (50 Mcg = 2000 Iu)] Naproxen [Naprosyn] 500 mg PO BID PRN 11/23/23 01/05/24 Lacosamide [Vimpat] 100 mg PO BID 01/05/24 01/05/24 Midazolam [Nayzilam] 1 spray NASAL ONCE PRN 01/05/24 01/05/24 lisinopriL [Zestril] 5 mg PO DAILY 01/05/24 01/05/24 Allergies Allergy/AdvReac Type Severity Reaction Status Date / Time diphenhydramine Allergy Confusion Verified 02/15/24 13:53 [From Benadryl] Sulfa (Sulfonamide Allergy Swelling Verified 02/15/24 13:53 Antibiotics) sulfamethoxazole Allergy Swelling Verified 02/15/24 13:53 [From Bactrim] trimethoprim [From Bactrim] Allergy Swelling Verified 02/15/24 13:53 Review of Systems ROS Statement: Those systems with pertinent positive or pertinent negative responses have been documented in the HPI. ROS Other: All systems not noted in ROS Statement are negative. Past Medical History Past Medical History: Asthma, Liver Disease, Seizure Disorder Additional Past Medical History / Comment(s): PTSD, chronic migraines, HX SEIZUR ES-LAST ONE 05/30/22 (PT STATES SEIZURES ARE STRESS INDUCED), liver disease d/t alcohol History of Any Multi-Drug Resistant Organisms: MRSA Date of last positivie culture/infection: 2005 MDRO Source:: leg Past Surgical History: Hernia Repair Additional Past Surgical History / Comment(s): forehead reconstruction for head lac as child, VNS implant Past Anesthesia/Blood Transfusion Reactions: No Reported Reaction Past Psychological History: Bipolar, Depression, PTSD, Schizoaffective Disorder Smoking Status: Former smoker Past Alcohol Use History: Occasional Past Drug Use History: Marijuana - Past Family History Father Family Medical History: Cancer Additional Family Medical History / Comment(s): ADOPTED-NOT TOTALLY SURE OF HHX Mother Family Medical History: Cancer Additional Family Medical History / Comment(s): ADOPTED-NOT TOTALLY SURE OF HHX General Exam General appearance: in no apparent distress, lethargic Head exam: Present: atraumatic, normocephalic Eye exam: Present: normal appearance, PERRL Respiratory exam: Present: normal lung sounds bilaterally. Absent: respiratory distress, wheezes Cardiovascular Exam: Present: regular rate, normal rhythm GI/Abdominal exam: Present: soft. Absent: distended, tenderness Extremities exam: Present: normal inspection, normal capillary refill Neurological exam: Present: CN II-XII intact. Absent: oriented X3, motor sensory deficit Psychiatric exam: Present: anxious Skin exam: Present: warm, dry, intact Course Vital Signs 02/15/24 02/15/24 13:53 14:20 Temperature 98.6 F Pulse Rate 79 59 L Respiratory 19 16 Rate Blood Pressure 99/58 113/78 O2 Sat by Pulse 97 98 Oximetry Medical Decision Making - Medical Decision Making Was pt. sent in by a medical professional or institution (AXEL Chapman, HOME HEALTH SPEECH THERAPIST, urgent care, hospital, or long term...) When possible be specific @ -No Did you speak to anyone other than the patient for history (EMS, parent, family, police, friend...)? What history was obtained from this source @ -No Did you review nursing and triage notes (agree or disagree)? Why? @ -I reviewed and agree with nursing and triage notes Were old charts reviewed (outside hosp., previous admission, EMS record, old EKG, old radiological studies, urgent care reports/EKG's, long term records)? Report findings @ -No old charts were reviewed Differential seizure EKG interpreted by me (3pts min.). @ -Sinus bradycardia with first-degree AV block rate of 59, ME interval 269, QRS duration 108 X-rays interpreted by me (1pt min.). @ -None done CT interpreted by me (1pt min.). @ -None done U/S interpreted by me (1pt. min.). @ -None done What testing was considered but not performed or refused? (CT, X-rays, U/S, labs)? Why? @ -None What meds were considered but not given or refused? Why? @ -None Did you discuss the management of the patient with other professionals (professionals i.e. AXEL Chapman, HOME HEALTH SPEECH THERAPIST, lab, RT, psych nurse, delinquency prevention social worker, manager dialysis, teacher, strike warfare/missile systems officer, caseworker protective services)? Give summary @ -No Was smoking cessation discussed for >3mins.? @ -No Was critical care preformed (if so, how long)? @ -No Were there social determinants of health that impacted care today? How? (Homelessness, low income, unemployed, alcoholism, drug addiction, transportation, low edu. Level, literacy, decrease access to med. care, fpc, rehab)? @ -No Was there de-escalation of care discussed even if they declined (Discuss DNR or withdrawal of care, Hospice)? DNR status @ -No What co-morbidities impacted this encounter? (DM, HTN, Smoking, COPD, CAD, Ca ncer, CVA, ARF, Chemo, Hep., AIDS, mental health diagnosis, sleep apnea, morbid obesity)? @ -Seizure disorder Was patient admitted / discharged? Hospital course, mention meds given and route, prescriptions, significant lab abnormalities, going to OR and other pertinent info. @ -[33-year-old male with possible seizure, patient vital signs are stable. He is in sinus rhythm. He regains normal level of consciousness, alert and oriented x 3 with nonfocal neurologic exam. Normal CBC, normal CMP, no acidosis. Possible seizure versus pseudoseizure. Patient stable for discharge at this time. Undiagnosed new problem with uncertain prognosis? @ -No Drug Therapy requiring intensive monitoring for toxicity (Heparin, Nitro, Insulin, Cardizem)? @ -No Were any procedures done? @ -No Diagnosis/symptom? @ -[Seizure Acute, or Chronic, or Acute on Chronic? @ acute on chronic Uncomplicated (without systemic symptoms) or Complicated (systemic symptoms)? @ -Default Side effects of treatment? @ -No Exacerbation, Progression, or Severe Exacerbation? @ -No Poses a threat to life or bodily function? How? (Chest pain, [place], [place], pneumonia, PE, COPD, DKA, ARF, appy, cholecystitis, CVA, Diverticulitis, Homicidal, Suicidal, threat to staff... and all critical care pts) @ -No - Lab Data Result diagrams: 02/15/24 13:58 02/15/24 13:58 Lab Results 02/15/24 02/15/24 Range/Units 13:58 13:58 WBC 5.6 (3.8-10.6) k/uL RBC 5.34 (4.30-5.90) m/uL Hgb 15.5 (13.0-17.5) gm/dL Hct 46.5 (39.0-53.0) % MCV 87.0 (80.0-100.0) fL MCH 29.0 (25.0-35.0) pg MCHC 33.3 (31.0-37.0) g/dL RDW 12.7 (11.5-15.5) % Plt Count 229 (150-450) k/uL MPV 6.9 Neutrophils % 54 % Lymphocytes % 33 % Monocytes % 9 % Eosinophils % 2 % Basophils % 1 % Neutrophils # 3.0 (1.3-7.7) k/uL Lymphocytes # 1.9 (1.0-4.8) k/uL Monocytes # 0.5 (0-1.0) k/uL Eosinophils # 0.1 (0-0.7) k/uL Basophils # 0.0 (0-0.2) k/uL Sodium 138 (137-145) mmol/L Potassium 4.6 (3.5-5.1) mmol/L Chloride 108 H (98-107) mmol/L Carbon Dioxide 25 (22-30) mmol/L Anion Gap 5 mmol/L BUN 13 (9-20) mg/dL Creatinine 1.05 (0.66-1.25) mg/dL Est GFR (CKD-EPI)AfAm >90 (>60 ml/min/1.73 sqM) Est GFR (CKD-EPI)NonAf >90 (>60 ml/min/1.73 sqM) Glucose 89 (74-99) mg/dL Calcium 9.3 (8.4-10.2) mg/dL Magnesium 2.1 (1.6-2.3) mg/dL Total Bilirubin 0.9 (0.2-1.3) mg/dL AST 48 (17-59) U/L ALT 56 H (4-49) U/L Alkaline Phosphatase 73 (38-126) U/L Total Protein 7.6 (6.3-8.2) g/dL Albumin 4.7 (3.5-5.0) g/dL Disposition Clinical Impression: Recurrent seizures Disposition: HOME SELF-CARE Condition: Good Instructions (If sedation given, give patient instructions): Recurrent Seizures in Adults (ED) Is patient prescribed a controlled substance at d/c from ED?: No Referrals: None,Stated [Primary Care Provider] - 1-2 days Time of Disposition: 15:05
[2024-02-15 15:30] VITALS: BP 114/72; PULSE 84; RESP 18; TEMP 98.2
== END 2024-02-15 15:48 | disposition home or self-care (01) ==
LOC: EC 13:43
DX: G40.909 Epilepsy, unspecified, not intractable, without status epilepticus (principal); I44.0 Atrioventricular block, first degree; R00.1 Bradycardia, unspecified; Z88.1 Allergy status to other antibiotic agents; Z88.2 Allergy status to sulfonamides; Z88.8 Allergy status to other drugs, medicaments and biological substances; Z87.891 Personal history of nicotine dependence; Z79.899 Other long term (current) drug therapy
CPT/HCPCS: 36415; 80053; 83735; 85025; 93005; 96360; 99284

== ENCOUNTER 2024-03-07 21:51 | Emergency (ER) | payer OTHER ==
[2024-03-07 21:57] LABS: Glucose,Whole Blood 91 mg/dL (70-110)
[2024-03-07 21:58] VITALS: RESP 18; TEMP 98.8
[2024-03-07 22:19] LABS: Basophils % (A) 1 %; Eosinophils # (A) 0.2 k/uL (0-0.7); Eosinophils % (A) 2 %; HCT 49.4 % (39.0-53.0); HGB 16.5 gm/dL (13.0-17.5); Lymphocytes # (A) 2.5 k/uL (1.0-4.8); Lymphocytes % (A) 32 %; MCH 28.5 pg (25.0-35.0); MCHC 33.5 g/dL (31.0-37.0); MCV 85.3 fL (80.0-100.0); Mean Platelet Volume 7.1; Monocytes # (A) 0.5 k/uL (0-1.0); Monocytes % (A) 7 %; Neutrophils # (A) 4.6 k/uL (1.3-7.7); Neutrophils % (A) 58 %; Platelet Count 295 k/uL (150-450); RBC 5.79 m/uL (4.30-5.90); RDW 12.9 % (11.5-15.5); WBC 7.9 k/uL (3.8-10.6)
[2024-03-07 22:24] LABS: ALT 57 U/L (4-49); AST 35 U/L (17-59); African American GFR (CKD) >90 (>60 ml/min/1.73 sqM); Albumin 5.3 g/dL (3.5-5.0); Alkaline Phosphatase 68 U/L (38-126); Anion Gap 11 mmol/L; Blood Urea Nitrogen 12 mg/dL (9-20); Calcium 10.1 mg/dL (8.4-10.2); Carbon Dioxide 26 mmol/L (22-30); Chloride 100 mmol/L (98-107); Glucose 82 mg/dL (74-99); Non-African American GFR(CKD) >90 (>60 ml/min/1.73 sqM); Potassium 4.4 mmol/L (3.5-5.1); Sodium 137 mmol/L (137-145); Total Bilirubin 0.5 mg/dL (0.2-1.3); Total Protein 8.2 g/dL (6.3-8.2)
[2024-03-07 23:03] VITALS: BP 151/94; PULSE 80
--- NOTE | 2024-03-07 23:04 | ED ---
Seizure HPI - General Chief Complaint: Seizure Stated Complaint: Seizure Time Seen by Provider: 03/07/24 21:52 Source: EMS Mode of arrival: EMS - History of Present Illness Initial Comments: Patient is a 34-year-old man who arrives by ambulance after reportedly having had seizure. The patient's then reportedly activated EMS. On arrival, patient has no complaints. MD Complaint: seizure Description of Episode: tonic-clonic movement -: minutes(s) Witnessed: yes - by bystander Trauma: No Seizure History: known seizure disorder Place: home Possible Precipitating Event: none Associated Symptoms: denies other symptoms - Related Data Home Medications Medication Instructions Recorded Confirmed Loratadine [Claritin] 10 mg PO DAILY 01/28/18 01/05/24 Montelukast [Singulair] 10 mg PO DAILY 01/28/18 01/05/24 Fluticasone Propion/Salmeterol 2 puff INHALATION RT-DAILY 07/25/20 01/05/24 [Advair Hfa 230-21 Mcg Inhaler] Butalb/APAP/Caff 50-325-40Mg 1 tab PO BID PRN 12/02/22 01/05/24 [Fioricet 50-325-40] levETIRAcetam [Keppra] 1,500 mg PO Q12HR 12/02/22 01/05/24 ARIPiprazole [Abilify] 15 mg PO HS 08/05/23 01/05/24 Albuterol Sulfate [Albuterol 2 puff INHALATION RT-Q6H PRN 08/05/23 01/05/24 Sulfate Hfa] Cholecalciferol (Vitamin D3) 50 mcg PO DAILY 08/05/23 01/05/24 [Vitamin D3 (50 Mcg = 2000 Iu)] Naproxen [Naprosyn] 500 mg PO BID PRN 11/23/23 01/05/24 Lacosamide [Vimpat] 100 mg PO BID 01/05/24 01/05/24 Midazolam [Nayzilam] 1 spray NASAL ONCE PRN 01/05/24 01/05/24 lisinopriL [Zestril] 5 mg PO DAILY 01/05/24 01/05/24 Allergies Allergy/AdvReac Type Severity Reaction Status Date / Time diphenhydramine Allergy Confusion Verified 03/07/24 21:58 [From Benadryl] Sulfa (Sulfonamide Allergy Swelling Verified 03/07/24 21:58 Antibiotics) sulfamethoxazole Allergy Swelling Verified 03/07/24 21:58 [From Bactrim] trimethoprim [From Bactrim] Allergy Swelling Verified 03/07/24 21:58 Review of Systems ROS Statement: Those systems with pertinent positive or pertinent negative responses have been documented in the HPI. ROS Other: All systems not noted in ROS Statement are negative. Eyes: Denies: vision change Respiratory: Denies: dyspnea Cardiovascular: Denies: chest pain Gastrointestinal: Denies: abdominal pain, vomiting Genitourinary: Denies: dysuria Musculoskeletal: Denies: back pain Neurological: Denies: headache, weakness 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 Date of last positivie culture/infection: 2005 MDRO Source:: leg Past Surgical History: Hernia Repair Additional Past Surgical History / Comment(s): forehead reconstruction for head lac as child, VNS implant Past Anesthesia/Blood Transfusion Reactions: No Reported Reaction Past Psychological History: Bipolar, Depression, PTSD, Schizoaffective Disorder Smoking Status: Former smoker Past Alcohol Use History: Occasional Past Drug Use History: Marijuana - Past Family History Father Family Medical History: Cancer Additional Family Medical History / Comment(s): ADOPTED-NOT TOTALLY SURE OF HHX Mother Family Medical History: Cancer Additional Family Medical History / Comment(s): ADOPTED-NOT TOTALLY SURE OF HHX General Exam General appearance: alert, in no apparent distress Head exam: Present: atraumatic, normocephalic Eye exam: Present: normal appearance. Absent: scleral icterus, conjunctival injection ENT exam: Present: normal oropharynx Neck exam: Present: normal inspection Respiratory exam: Present: normal lung sounds bilaterally. Absent: respiratory distress, wheezes, rales, rhonchi, stridor, accessory muscle use Cardiovascular Exam: Present: regular rate, normal rhythm, normal heart sounds. Absent: systolic murmur, diastolic murmur, rubs, gallop GI/Abdominal exam: Present: soft. Absent: distended, tenderness, guarding, rebound, rigid, mass Extremities exam: Present: normal inspection, normal capillary refill. Absent: pedal edema, calf tenderness Back exam: Present: normal inspection. Absent: CVA tenderness (R), CVA tenderness (L) Neurological exam: Present: alert, CN II-XII intact. Absent: motor sensory deficit Skin exam: Present: warm, dry, intact, normal color. Absent: rash Course Vital Signs 03/07/24 03/07/24 21:53 23:00 Temperature 98.8 F Pulse Rate 81 80 Respiratory 18 18 Rate Blood Pressure 151/94 O2 Sat by Pulse 100 100 Oximetry Medical Decision Making - Medical Decision Making Is a 34-year-old man arriving to have evaluation after reportedly having tonic- clonic seizure. Patient does have history of seizures. On arrival, the patient did manifest nonepileptic shaking movements with no associated postictal period or incontinence. The patient's workup here unremarkable. Stable to have further neurology evaluation as outpatient as needed Was pt. sent in by a medical professional or institution (, PA, SCALPING MACHINE OPERATOR, urgent care, hospital, or [facility]...) When possible be specific @ -[No] Did you speak to anyone other than the patient for history (EMS, parent, family, police, friend...)? What history was obtained from this source @ -[No] Did you review nursing and triage notes (agree or disagree)? Why? @ -[I reviewed and agree with nursing and triage notes] Were old charts reviewed (outside hosp., previous admission, EMS record, old EKG, old radiological studies, urgent care reports/EKG's, [facility] records)? Report findings @ -[No old charts were reviewed] Differential Diagnosis (chest pain, altered mental status, abdominal pain women, abdominal pain men, vaginal bleeding, weakness, fever, dyspnea, syncope, headache, dizziness, GI bleed, back pain, seizure, CVA, palpatations, mental health, musculoskeletal)? @ -[Differential Seizure: Recurrent seizure disorder, febrile seizure, alcohol withdrawal, stimulants, meningitis, encephalitis, intercranial hemorrhage, intracranial tumor, stroke, eclampsia, thyrotoxicosis, hypocalcemia, hyponatremia, hypernatremia, hypomagnesemia, psychogenic, this is not meant to be an all-inclusive list. EKG interpreted by me (3pts min.). @ -[As above] X-rays interpreted by me (1pt min.). @ -[None done] CT interpreted by me (1pt min.). @ -[None done] U/S interpreted by me (1pt. min.). @ -[None done] What testing was considered but not performed or refused? (CT, X-rays, U/S, labs)? Why? @ -[None] What meds were considered but not given or refused? Why? @ -[None] Did you discuss the management of the patient with other professionals (professionals i.e. , PA, SCALPING MACHINE OPERATOR, lab, RT, psych nurse, psychologist social, kitchen clerk, teacher, project control officer, family caseworker)? Give summary @ -[No] Was smoking cessation discussed for >3mins.? @ -[No] Was critical care preformed (if so, how long)? @ -[No] Were there social determinants of health that impacted care today? How? (Homelessness, low income, unemployed, alcoholism, drug addiction, tra nsportation, low edu. Level, literacy, decrease access to med. care, senior care, rehab)? @ -[No] Was there de-escalation of care discussed even if they declined (Discuss DNR or withdrawal of care, Hospice)? DNR status @ -[No] What co-morbidities impacted this encounter? (DM, HTN, Smoking, COPD, CAD, Can cer, CVA, ARF, Chemo, Hep., AIDS, mental health diagnosis, sleep apnea, morbid obesity)? @ -[History of seizures Was patient admitted / discharged? Hospital course, mention meds given and route, prescriptions, significant lab abnormalities, going to OR and other pertinent info. @ -[As above Undiagnosed new problem with uncertain prognosis? @ -[No] Drug Therapy requiring intensive monitoring for toxicity (Heparin, Nitro, Insulin, Cardizem)? @ -[No] Were any procedures done? @ -[No] Diagnosis/symptom? @ -[Acute seizure in patient with seizure disorder Acute, or Chronic, or Acute on Chronic? @ -[Acute on chronic Uncomplicated (without systemic symptoms) or Complicated (systemic symptoms)? @ -[Uncomplicated Side effects of treatment? @ -[No] Exacerbation, Progression, or Severe Exacerbation? @ -[No] Poses a threat to life or bodily function? How? (Chest pain, [place], [place], pneumonia, PE, COPD, DKA, ARF, appy, cholecystitis, CVA, Diverticulitis, Homicidal, Suicidal, threat to staff... and all critical care pts) @ -[No] All treatments are based on ideal body weight as in ED triage - Lab Data Result diagrams: 03/07/24 22:00 03/07/24 22:00 Lab Results 03/07/24 03/07/24 03/07/24 Range/Units 21:55 22:00 22:00 WBC 7.9 (3.8-10.6) k/uL RBC 5.79 (4.30-5.90) m/uL Hgb 16.5 (13.0-17.5) gm/dL Hct 49.4 (39.0-53.0) % MCV 85.3 (80.0-100.0) fL MCH 28.5 (25.0-35.0) pg MCHC 33.5 (31.0-37.0) g/dL RDW 12.9 (11.5-15.5) % Plt Count 295 (150-450) k/uL MPV 7.1 Neutrophils % 58 % Lymphocytes % 32 % Monocytes % 7 % Eosinophils % 2 % Basophils % 1 % Neutrophils # 4.6 (1.3-7.7) k/uL Lymphocytes # 2.5 (1.0-4.8) k/uL Monocytes # 0.5 (0-1.0) k/uL Eosinophils # 0.2 (0-0.7) k/uL Basophils # 0.0 (0-0.2) k/uL Sodium 137 (137-145) mmol/L Potassium 4.4 (3.5-5.1) mmol/L Chloride 100 (98-107) mmol/L Carbon Dioxide 26 (22-30) mmol/L Anion Gap 11 mmol/L BUN 12 (9-20) mg/dL Creatinine 0.96 (0.66-1.25) mg/dL Est GFR (CKD-EPI)AfAm >90 (>60 ml/min/1.73 sqM) Est GFR (CKD-EPI)NonAf >90 (>60 ml/min/1.73 sqM) Glucose 82 (74-99) mg/dL POC Glucose (mg/dL) 91 (70-110) mg/dL POC Glu Segmental Wall Installer ID Eduardo Lopezie Plasma Lactic Acid Jorje (0.7-2.0) mmol/L Calcium 10.1 (8.4-10.2) mg/dL Total Bilirubin 0.5 (0.2-1.3) mg/dL AST 35 (17-59) U/L ALT 57 H (4-49) U/L Alkaline Phosphatase 68 (38-126) U/L Total Protein 8.2 (6.3-8.2) g/dL Albumin 5.3 H (3.5-5.0) g/dL 03/07/24 Range/Units 22:00 WBC (3.8-10.6) k/uL RBC (4.30-5.90) m/uL Hgb (13.0-17.5) gm/dL Hct (39.0-53.0) % MCV (80.0-100.0) fL MCH (25.0-35.0) pg MCHC (31.0-37.0) g/dL RDW (11.5-15.5) % Plt Count (150-450) k/uL MPV Neutrophils % % Lymphocytes % % Monocytes % % Eosinophils % % Basophils % % Neutrophils # (1.3-7.7) k/uL Lymphocytes # (1.0-4.8) k/uL Monocytes # (0-1.0) k/uL Eosinophils # (0-0.7) k/uL Basophils # (0-0.2) k/uL Sodium (137-145) mmol/L Potassium (3.5-5.1) mmol/L Chloride (98-107) mmol/L Carbon Dioxide (22-30) mmol/L Anion Gap mmol/L BUN (9-20) mg/dL Creatinine (0.66-1.25) mg/dL Est GFR (CKD-EPI)AfAm (>60 ml/min/1.73 sqM) Est GFR (CKD-EPI)NonAf (>60 ml/min/1.73 sqM) Glucose (74-99) mg/dL POC Glucose (mg/dL) (70-110) mg/dL POC Glu Segmental Wall Installer ID Plasma Lactic Acid Jorje 1.5 (0.7-2.0) mmol/L Calcium (8.4-10.2) mg/dL Total Bilirubin (0.2-1.3) mg/dL AST (17-59) U/L ALT (4-49) U/L Alkaline Phosphatase (38-126) U/L Total Protein (6.3-8.2) g/dL Albumin (3.5-5.0) g/dL Disposition Clinical Impression: Psychogenic nonepileptic seizure Disposition: HOME SELF-CARE Condition: Good Instructions (If sedation given, give patient instructions): Recurrent Seizures in Adults (ED) Is patient prescribed a controlled substance at d/c from ED?: No Referrals: None,Stated [Primary Care Provider] - 1-2 days
== END 2024-03-07 23:16 | disposition home or self-care (01) ==
LOC: EC 21:51
DX: F44.5 Conversion disorder with seizures or convulsions (principal); Z88.1 Allergy status to other antibiotic agents; Z88.2 Allergy status to sulfonamides; Z88.8 Allergy status to other drugs, medicaments and biological substances; Z87.891 Personal history of nicotine dependence
CPT/HCPCS: 36415; 80053; 83605; 85025; 99284

== ENCOUNTER 2024-05-07 10:10 | Emergency (ER) | payer OTHER ==
[2024-05-07 10:26] VITALS: BP 123/75; PULSE 88; RESP 18; TEMP 97.7
--- NOTE | 2024-05-07 10:57 | ED ---
Lower Extremity Injury HPI - General Source: patient, RN notes reviewed Mode of arrival: ambulatory Limitations: no limitations <Hayde Blount - Last Filed: 05/07/24 10:56> - General Source: patient, RN notes reviewed Mode of arrival: ambulatory Limitations: no limitations <Arian Barnes - Last Filed: 05/07/24 13:16> - General Chief Complaint: Extremity Injury, Lower Stated Complaint: knee pain Time Seen by Provider: 05/07/24 10:56 - History of Present Illness Initial Comments: Quick note: 34-year-old male presented the ER for evaluation of right knee pain. Patient states a couple days ago he was attempting to pull a bike under a fence when he accidentally slipped on ice landing on the ice with his right knee. He reports a grinding sensation to his knee. (Hayde Blount) 34-year-old male presents emergency department chief complaint of right knee pain. Patient states a few days ago they were trying to move a bike when he slipped on ice landing to his right knee. Patient states he has increasing knee pain, swelling hurts to ambulate. No other injuries noted. (Arian Barnes) - Related Data Home Medications Medication Instructions Recorded Confirmed Loratadine [Claritin] 10 mg PO DAILY 01/28/18 01/05/24 Montelukast [Singulair] 10 mg PO DAILY 01/28/18 01/05/24 Fluticasone Propion/Salmeterol 2 puff INHALATION RT-DAILY 07/25/20 01/05/24 [Advair Hfa 230-21 Mcg Inhaler] Butalb/APAP/Caff 50-325-40Mg 1 tab PO BID PRN 12/02/22 01/05/24 [Fioricet 50-325-40] levETIRAcetam [Keppra] 1,500 mg PO Q12HR 12/02/22 01/05/24 ARIPiprazole [Abilify] 15 mg PO HS 08/05/23 01/05/24 Albuterol Sulfate [Albuterol 2 puff INHALATION RT-Q6H PRN 08/05/23 01/05/24 Sulfate Hfa] Cholecalciferol (Vitamin D3) 50 mcg PO DAILY 08/05/23 01/05/24 [Vitamin D3 (50 Mcg = 2000 Iu)] Naproxen [Naprosyn] 500 mg PO BID PRN 11/23/23 01/05/24 Lacosamide [Vimpat] 100 mg PO BID 01/05/24 01/05/24 Midazolam [Nayzilam] 1 spray NASAL ONCE PRN 01/05/24 01/05/24 lisinopriL [Zestril] 5 mg PO DAILY 01/05/24 01/05/24 Allergies Allergy/AdvReac Type Severity Reaction Status Date / Time diphenhydramine Allergy Confusion Verified 05/07/24 10:26 [From Benadryl] Sulfa (Sulfonamide Allergy Swelling Verified 05/07/24 10:26 Antibiotics) sulfamethoxazole Allergy Swelling Verified 05/07/24 10:26 [From Bactrim] trimethoprim [From Bactrim] Allergy Swelling Verified 05/07/24 10:26 Review of Systems ROS Other: All systems not noted in ROS Statement are negative. <Hayde Blount - Last Filed: 05/07/24 10:56> ROS Other: All systems not noted in ROS Statement are negative. <Arian Barnes - Last Filed: 05/07/24 13:16> ROS Statement: Those systems with pertinent positive or pertinent negative responses have been documented in the HPI. 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 Date of last positivie culture/infection: 2005 MDRO Source:: leg Past Surgical History: Hernia Repair Additional Past Surgical History / Comment(s): forehead reconstruction for head lac as child, VNS implant Past Anesthesia/Blood Transfusion Reactions: No Reported Reaction Past Psychological History: Bipolar, Depression, PTSD, Schizoaffective Disorder Smoking Status: Former smoker Past Alcohol Use History: Occasional Past Drug Use History: Marijuana - Past Family History Father Family Medical History: Cancer Additional Family Medical History / Comment(s): ADOPTED-NOT TOTALLY SURE OF HHX Mother Family Medical History: Cancer Additional Family Medical History / Comment(s): ADOPTED-NOT TOTALLY SURE OF HHX <Hayde Blount - Last Filed: 05/07/24 10:56> General Exam Limitations: no limitations <Hayde Blount - Last Filed: 05/07/24 10:56> General appearance: alert, in no apparent distress Head exam: Present: atraumatic, normocephalic, normal inspection Respiratory exam: Present: normal lung sounds bilaterally. Absent: respiratory distress, wheezes, rales, rhonchi, stridor Cardiovascular Exam: Present: regular rate, normal rhythm, normal heart sounds. Absent: systolic murmur, diastolic murmur, rubs, gallop, clicks Extremities exam: Present: other (Right knee full range of motion, neurovascularly intact there is moderate tenderness mild fluid noted.) <Arian Barnes - Last Filed: 05/07/24 13:16> - General Exam Comments Initial Comments: Visual Physical Exam Vital signs reviewed General: Well-appearing, nontoxic, no acute distress. Head: Normocephalic, atraumatic Eyes: PERRLA, EOMI ENT: Airway patent Chest: Nonlabored breathing Skin: No visual rash, normal skin tone Neuro: Alert and oriented 3 Musculoskeletal: No gross abnormalities (Hayde Blount) Course Vital Signs 05/07/24 10:24 Temperature 97.7 F Pulse Rate 88 Respiratory 18 Rate Blood Pressure 123/75 O2 Sat by Pulse 96 Oximetry Medical Decision Making <Hayde Blount - Last Filed: 05/07/24 10:56> <Arian Barens - Last Filed: 05/07/24 13:16> - Medical Decision Making I performed the quick note portion of this chart. Electronically signed by Hayde Blount PA-C (Hayde Blount) Was pt. sent in by a medical professional or institution ([facility] Chapman, INLAYER, urgent care, hospital, or [facility]p...) When possible be specific @ -[No] Did you speak to anyone other than the patient for history (EMS, parent, family, police, friend...)? What history was obtained from this source @ -[No] Did you review nursing and triage notes (agree or disagree)? Why? @ -[I reviewed and agree with nursing and triage notes] Were old charts reviewed (outside hosp., previous admission, EMS record, old EKG, old radiological studies, urgent care reports/EKG's, [facility]p records)? Report findings @ -[No old charts were reviewed] Differential Diagnosis (chest pain, altered mental status, abdominal pain women, abdominal pain men, vaginal bleeding, weakness, fever, dyspnea, syncope, headache, dizziness, GI bleed, back pain, seizure, CVA, palpatations, mental health, musculoskeletal)? @ -Leg fracture, knee sprain, knee contusion EKG interpreted by me (3pts min.). @ -None X-rays interpreted by me (1pt min.). @ -[X-ray right knee shows no fracture or acute osseous abnormality CT interpreted by me (1pt min.). @ -[None done] U/S interpreted by me (1pt. min.). @ -[None done] What testing was considered but not performed or refused? (CT, X-rays, U/S, labs)? Why? @ -None What meds were considered but not given or refused? Why? @ -None Did you discuss the management of the patient with other professionals (pr ofessionals i.e. , PA, INLAYER, lab, RT, psych nurse, psychosocial rehabilitation counselor, radio reporter, teacher, customs and immigration officer, hospice case manager)? Give summary @ -No Was smoking cessation discussed for >3mins.? @ -No Was critical care preformed (if so, how long)? @ -No Were there social determinants of health that impacted care today? How? (Homelessness, low income, unemployed, alcoholism, drug addiction, transportation, low edu. Level, literacy, decrease access to med. care, prison, rehab)? @ -No Was there de-escalation of care discussed even if they declined (Discuss DNR or withdrawal of care, Hospice)? DNR status @ -No What co-morbidities impacted this encounter? (DM, HTN, Smoking, COPD, CAD, Cancer, CVA, ARF, Chemo, Hep., AIDS, mental health diagnosis, sleep apnea, morbid obesity)? @ -None Was patient admitted / discharged? Hospital course, mention meds given and route, prescriptions, significant lab abnormalities, going to OR and other pertinent info. @ -Discharge patient has right knee pain, right knee sprain. Patient was discharged in stable condition with follow-up with orthopedics. Undiagnosed new problem with uncertain prognosis? @ -No Drug Therapy requiring intensive monitoring for toxicity (Heparin, Nitro, Insulin, Cardizem)? @ -No Were any procedures done? @ -No Diagnosis/symptom? @ -Right knee sprain Acute, or Chronic, or Acute on Chronic? @ -Acute Uncomplicated (without systemic symptoms) or Complicated (systemic symptoms)? @ -Uncomplicated Side effects of treatment? @ -No Exacerbation, Progression, or Severe Exacerbation? @ -No Poses a threat to life or bodily function? How? (Chest pain, [place], [place], pneumonia, PE, COPD, DKA, ARF, appy, cholecystitis, CVA, Diverticulitis, Homicidal, Suicidal, threat to staff... and all critical care pts) @ -No (Arian Barnes) Disposition <Hayde Blount - Last Filed: 05/07/24 10:56> Is patient prescribed a controlled substance at d/c from ED?: No Time of Disposition: 11:41 <Arian Barnes - Last Filed: 05/07/24 13:16> Clinical Impression: Right knee sprain, Knee contusion Disposition: HOME SELF-CARE Condition: Stable Instructions (If sedation given, give patient instructions): Knee Pain (ED) Additional Instructions: Please return to the Emergency Department if symptoms worsen or any other concerns. Referrals: Marycarmen Gaston MD [Primary Care Provider] - 1-2 days
--- NOTE | 2024-05-07 11:23 | XR ---
EXAMINATION TYPE: XR knee complete RT DATE OF EXAM: 05/07/2024 11:03 AM COMPARISON: 09/08/2019 CLINICAL INDICATION: Male, 34 years old with history of pain, pain TECHNIQUE: 3 view(s) obtained. FINDINGS: No acute fracture or dislocation. Joint spaces are preserved. No joint effusion is evident. Follow up exams can be performed 7-10 days from acute trauma for continued pain. IMPRESSION: 1. No acute osseous abnormality right knee [facility] Navya Nieves, , 05/07/2024 11:21 AM
[2024-05-07] MEDS: ACET/COD 300 MG/30 MG STARTER PACK 6 TAB BTL PO STA (12:10)
== END 2024-05-07 12:41 | disposition home or self-care (01) ==
LOC: EC 10:10
DX: S83.91XA Sprain of unspecified site of right knee, initial encounter (principal); Z87.891 Personal history of nicotine dependence; Z88.2 Allergy status to sulfonamides; Z88.8 Allergy status to other drugs, medicaments and biological substances; Z88.1 Allergy status to other antibiotic agents; W00.0XXA Fall on same level due to ice and snow, initial encounter
CPT/HCPCS: 99283

== ENCOUNTER 2024-05-07 21:02 | Emergency (ER) | payer OTHER ==
--- NOTE | 2024-05-07 21:25 | ED ---
Seizure HPI - General Chief Complaint: Seizure Stated Complaint: Seizure Time Seen by Provider: 05/07/24 21:06 Source: patient, EMS Mode of arrival: EMS - History of Present Illness Initial Comments: This patient 34-year-old man with history of seizure disorder and brought to [facility] e evaluation after having had seizure lasting many minutes. The witness has not arrived yet. EMS states that seizures had stopped prior to arrival. Patient is starting to become alert. He denies injury. No pain or dyspnea. MD Complaint: seizure -: minutes(s) Description of Episode: loss of consciousness, tonic-clonic movement -: minutes(s) Trauma: No Seizure History: known seizure disorder Place: home Associated Symptoms: denies other symptoms - Related Data Home Medications Medication Instructions Recorded Confirmed Loratadine [Claritin] 10 mg PO DAILY 01/28/18 01/05/24 Montelukast [Singulair] 10 mg PO DAILY 01/28/18 01/05/24 Fluticasone Propion/Salmeterol 2 puff INHALATION RT-DAILY 07/25/20 01/05/24 [Advair Hfa 230-21 Mcg Inhaler] Butalb/APAP/Caff 50-325-40Mg 1 tab PO BID PRN 12/02/22 01/05/24 [Fioricet 50-325-40] levETIRAcetam [Keppra] 1,500 mg PO Q12HR 12/02/22 01/05/24 ARIPiprazole [Abilify] 15 mg PO HS 08/05/23 01/05/24 Albuterol Sulfate [Albuterol 2 puff INHALATION RT-Q6H PRN 08/05/23 01/05/24 Sulfate Hfa] Cholecalciferol (Vitamin D3) 50 mcg PO DAILY 08/05/23 01/05/24 [Vitamin D3 (50 Mcg = 2000 Iu)] Naproxen [Naprosyn] 500 mg PO BID PRN 11/23/23 01/05/24 Lacosamide [Vimpat] 100 mg PO BID 01/05/24 01/05/24 Midazolam [Nayzilam] 1 spray NASAL ONCE PRN 01/05/24 01/05/24 lisinopriL [Zestril] 5 mg PO DAILY 01/05/24 01/05/24 Allergies Allergy/AdvReac Type Severity Reaction Status Date / Time diphenhydramine Allergy Confusion Verified 05/07/24 21:12 [From Benadryl] Sulfa (Sulfonamide Allergy Swelling Verified 05/07/24 21:12 Antibiotics) sulfamethoxazole Allergy Swelling Verified 05/07/24 21:12 [From Bactrim] trimethoprim [From Bactrim] Allergy Swelling Verified 05/07/24 21:12 Review of Systems ROS Statement: Those systems with pertinent positive or pertinent negative responses have been documented in the HPI. ROS Other: All systems not noted in ROS Statement are negative. Constitutional: Denies: fever, weakness Eyes: Denies: vision change Respiratory: Denies: dyspnea Cardiovascular: Denies: chest pain Gastrointestinal: Denies: abdominal pain, vomiting Musculoskeletal: Denies: back pain Neurological: Reports: headache. Denies: weakness 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 Date of last positivie culture/infection: 2005 MDRO Source:: leg Past Surgical History: Hernia Repair Additional Past Surgical History / Comment(s): forehead reconstruction for head lac as child, VNS implant Past Anesthesia/Blood Transfusion Reactions: No Reported Reaction Past Psychological History: Bipolar, Depression, PTSD, Schizoaffective Disorder Smoking Status: Former smoker Past Alcohol Use History: Occasional Past Drug Use History: Marijuana - Past Family History Father Family Medical History: Cancer Additional Family Medical History / Comment(s): ADOPTED-NOT TOTALLY SURE OF HHX Mother Family Medical History: Cancer Additional Family Medical History / Comment(s): ADOPTED-NOT TOTALLY SURE OF HHX General Exam General appearance: alert, in no apparent distress Head exam: Present: atraumatic, normocephalic Eye exam: Present: normal appearance, PERRL, EOMI. Absent: scleral icterus, conjunctival injection, nystagmus ENT exam: Present: normal oropharynx Neck exam: Present: normal inspection, full ROM Respiratory exam: Present: normal lung sounds bilaterally. Absent: respiratory distress, wheezes, rales, rhonchi, stridor, chest wall tenderness, accessory muscle use Cardiovascular Exam: Present: regular rate, normal rhythm, normal heart sounds. Absent: systolic murmur, diastolic murmur, rubs, gallop GI/Abdominal exam: Present: soft. Absent: distended, tenderness, guarding, rebound, rigid, mass Extremities exam: Present: normal inspection, normal capillary refill. Absent: pedal edema, calf tenderness Back exam: Present: normal inspection. Absent: CVA tenderness (R), CVA tenderness (L) Neurological exam: Present: alert Skin exam: Present: warm, dry, intact, normal color. Absent: rash Course Vital Signs 05/07/24 05/07/24 05/07/24 21:06 23:02 23:54 Temperature 98.2 F 98.1 F Pulse Rate 97 84 85 Respiratory 16 18 18 Rate Blood Pressure 133/82 117/71 130/91 O2 Sat by Pulse 94 L 98 96 Oximetry Medical Decision Making - Medical Decision Making Was pt. sent in by a medical professional or institution (, PA, VITAMIN MANAGER, urgent care, hospital, or snf...) When possible be specific @ -[No] Did you speak to anyone other than the patient for history (EMS, parent, family, police, friend...)? What history was obtained from this source @ -[No] Did you review nursing and triage notes (agree or disagree)? Why? @ -[I reviewed and agree with nursing and triage notes] Were old charts reviewed (outside hosp., previous admission, EMS record, old EKG, old radiological studies, urgent care reports/EKG's, snf records)? Report findings @ -[No old charts were reviewed] Differential Diagnosis (chest pain, altered mental status, abdominal pain women, abdominal pain men, vaginal bleeding, weakness, fever, dyspnea, syncope, headache, dizziness, GI bleed, back pain, seizure, CVA, palpatations, mental health, musculoskeletal)? @ -[Differential Seizure: Recurrent seizure disorder, febrile seizure, alcohol withdrawal, stimulants, meningitis, encephalitis, intercranial hemorrhage, intracranial tumor, stroke, eclampsia, thyrotoxicosis, hypocalcemia, hyponatremia, hypernatremia, hypomagnesemia, psychogenic, this is not meant to be an all-inclusive list. EKG interpreted by me (3pts min.). @ -[As above] X-rays interpreted by me (1pt min.). @ -[None done] CT interpreted by me (1pt min.). @ -[None done] U/S interpreted by me (1pt. min.). @ -[None done] What testing was considered but not performed or refused? (CT, X-rays, U/S, labs)? Why? @ -[None] What meds were considered but not given or refused? Why? @ -[None] Did you discuss the management of the patient with other professionals ( professionals i.e. , PA, VITAMIN MANAGER, lab, RT, psych nurse, social human services assistants, corrosion technician, teacher, correction officer, supervisor case loading)? Give summary @ -[No] Was smoking cessation discussed for >3mins.? @ -[No] Was critical care preformed (if so, how long)? @ -[No] Were there social determinants of health that impacted care today? How? (Homelessness, low income, unemployed, alcoholism, drug addiction, transportati on, low edu. Level, literacy, decrease access to med. care, longterm, rehab)? @ -[No] Was there de-escalation of care discussed even if they declined (Discuss DNR or withdrawal of care, Hospice)? DNR status @ -[No] What co-morbidities impacted this encounter? (DM, HTN, Smoking, COPD, CAD, Cancer, CVA, ARF, Chemo, Hep., AIDS, mental health diagnosis, sleep apnea, morbid obesity)? @ -[Seizure disorder Was patient admitted / discharged? Hospital course, mention meds given and route, prescriptions, significant lab abnormalities, going to OR and other pertinent info. @ -[hospital course] Undiagnosed new problem with uncertain prognosis? @ -[No] Drug Therapy requiring intensive monitoring for toxicity (Heparin, Nitro, Insulin, Cardizem)? @ -[No] Were any procedures done? @ -[No] Diagnosis/symptom? @ -[Acute on chronic seizure disorder Acute, or Chronic, or Acute on Chronic? @ -[Acute on chronic Uncomplicated (without systemic symptoms) or Complicated (systemic symptoms)? @ -[Uncomplicated Side effects of treatment? @ -[No] Exacerbation, Progression, or Severe Exacerbation? @ -[No] Poses a threat to life or bodily function? How? (Chest pain, [place], [place], pneumonia, PE, COPD, DKA, ARF, appy, cholecystitis, CVA, Diverticulitis, Homicidal, Suicidal, threat to staff... and all critical care pts) @ -[No] All treatments are based on ideal body weight as in ED triage - Lab Data Result diagrams: 05/07/24 21:05/07/24: Lab Results 05/07/24 05/07/24 Range/Units 21: 21: WBC 7.8 (3.8-10.6) k/uL RBC 5.32 (4.30-5.90) m/uL Hgb 14.9 (13.0-17.5) gm/dL Hct 46.6 (39.0-53.0) % MCV 87.5 (80.0-100.0) fL MCH 28.1 (25.0-35.0) pg MCHC 32.1 (31.0-37.0) g/dL RDW 12.8 (11.5-15.5) % Plt Count 281 (150-450) k/uL MPV 6.8 Neutrophils % 60 % Lymphocytes % 30 % Monocytes % 7 % Eosinophils % 2 % Basophils % 1 % Neutrophils # 4.7 (1.3-7.7) k/uL Lymphocytes # 2.3 (1.0-4.8) k/uL Monocytes # 0.5 (0-1.0) k/uL Eosinophils # 0.1 (0-0.7) k/uL Basophils # 0.0 (0-0.2) k/uL Sodium 137 (137-145) mmol/L Potassium 3.0 L (3.5-5.1) mmol/L Chloride 109 H (98-107) mmol/L Carbon Dioxide 23 (22-30) mmol/L Anion Gap 5 mmol/L BUN 15 (9-20) mg/dL Creatinine 0.73 (0.66-1.25) mg/dL Est GFR (CKD-EPI)AfAm >90 (>60 ml/min/1.73 sqM) Est GFR (CKD-EPI)NonAf >90 (>60 ml/min/1.73 sqM) Glucose 129 H (74-99) mg/dL Calcium 7.5 L (8.4-10.2) mg/dL Magnesium 1.8 (1.6-2.3) mg/dL Total Bilirubin 0.4 (0.2-1.3) mg/dL AST 33 (17-59) U/L ALT 40 (4-49) U/L Alkaline Phosphatase 54 (38-126) U/L Total Protein 5.9 L (6.3-8.2) g/dL Albumin 3.5 (3.5-5.0) g/dL - EKG Data -: EKG Interpreted by Ct EKG shows normal: sinus rhythm, axis (Normal), intervals (The NH intervals 245 ms, prolonged consistent with a first-degree AV block. QRS duration 111 ms, borderline, QTc 414 ms, normal.), QRS complexes (Nonspecific interventricular conduction delay), ST-T waves (Normal) Rate: normal (Rate 90 bpm) Disposition Clinical Impression: Epileptic seizure, generalized Disposition: HOME SELF-CARE Condition: Good Instructions (If sedation given, give patient instructions): Seizure/Epilepsy Discharge Instructions & Follow-Up Is patient prescribed a controlled substance at d/c from ED?: No Referrals: Marycarmen Gaston MD [Primary Care Provider] - 1-2 days
[2024-05-07 21:34] LABS: Basophils % (A) 1 %; Eosinophils # (A) 0.1 k/uL (0-0.7); Eosinophils % (A) 2 %; HCT 46.6 % (39.0-53.0); HGB 14.9 gm/dL (13.0-17.5); Lymphocytes # (A) 2.3 k/uL (1.0-4.8); Lymphocytes % (A) 30 %; MCH 28.1 pg (25.0-35.0); MCHC 32.1 g/dL (31.0-37.0); MCV 87.5 fL (80.0-100.0); Mean Platelet Volume 6.8; Monocytes # (A) 0.5 k/uL (0-1.0); Monocytes % (A) 7 %; Neutrophils # (A) 4.7 k/uL (1.3-7.7); Neutrophils % (A) 60 %; Platelet Count 281 k/uL (150-450); RBC 5.32 m/uL (4.30-5.90); RDW 12.8 % (11.5-15.5); WBC 7.8 k/uL (3.8-10.6)
[2024-05-07 21:46] LABS: ALT 40 U/L (4-49); AST 33 U/L (17-59); African American GFR (CKD) >90 (>60 ml/min/1.73 sqM); Albumin 3.5 g/dL (3.5-5.0); Alkaline Phosphatase 54 U/L (38-126); Anion Gap 5 mmol/L; Blood Urea Nitrogen 15 mg/dL (9-20); Calcium 7.5 mg/dL (8.4-10.2); Carbon Dioxide 23 mmol/L (22-30); Chloride 109 mmol/L (98-107); Glucose 129 mg/dL (74-99); Magnesium 1.8 mg/dL (1.6-2.3); Non-African American GFR(CKD) >90 (>60 ml/min/1.73 sqM); Sodium 137 mmol/L (137-145); Total Bilirubin 0.4 mg/dL (0.2-1.3); Total Protein 5.9 g/dL (6.3-8.2)
[2024-05-07] MEDS: POTASSIUM CHLORIDE ER 20 MEQ TAB.ER PO STA (22:59)
[2024-05-07 23:04] VITALS: RESP 18
[2024-05-07 23:55] VITALS: BP 130/91; PULSE 85; TEMP 98.1
== END 2024-05-07 23:56 | disposition home or self-care (01) ==
LOC: EC 21:02
DX: G40.409 Other generalized epilepsy and epileptic syndromes, not intractable, without status epilepticus (principal); Z87.891 Personal history of nicotine dependence; Z88.1 Allergy status to other antibiotic agents; Z88.2 Allergy status to sulfonamides; Z88.8 Allergy status to other drugs, medicaments and biological substances
CPT/HCPCS: 36415; 80053; 83735; 85025; 93005; 99284

== ENCOUNTER 2024-05-25 22:55 | Emergency (ER) | payer OTHER ==
--- NOTE | 2024-05-25 23:03 | ED ---
Seizure HPI - General Stated Complaint: Seizure Time Seen by Provider: 05/25/24 23:02 Source: RN notes reviewed, old records reviewed Limitations: no limitations - History of Present Illness Initial Comments: This is a 34 male to the ER for evaluation patient notes today for evaluation regards to recurrent seizures. History of seizures history of recurrent seizure and ER visits for recurrent seizure including recently, patient is taking medication as prescribed and has no other current complaints MD Complaint: seizure -: minutes(s) Description of Episode: loss of consciousness, tonic-clonic movement -: second(s) Witnessed: yes - by bystander Seizure History: known seizure disorder, compliant with medication Place: home Possible Precipitating Event: none Associated Symptoms: denies other symptoms - Related Data Home Medications Medication Instructions Recorded Confirmed Loratadine [Claritin] 10 mg PO DAILY 01/28/18 01/05/24 Montelukast [Singulair] 10 mg PO DAILY 01/28/18 01/05/24 Fluticasone Propion/Salmeterol 2 puff INHALATION RT-DAILY 07/25/20 01/05/24 [Advair Hfa 230-21 Mcg Inhaler] Butalb/APAP/Caff 50-325-40Mg 1 tab PO BID PRN 12/02/22 01/05/24 [Fioricet 50-325-40] levETIRAcetam [Keppra] 1,500 mg PO Q12HR 12/02/22 01/05/24 ARIPiprazole [Abilify] 15 mg PO HS 08/05/23 01/05/24 Albuterol Sulfate [Albuterol 2 puff INHALATION RT-Q6H PRN 08/05/23 01/05/24 Sulfate Hfa] Cholecalciferol (Vitamin D3) 50 mcg PO DAILY 08/05/23 01/05/24 [Vitamin D3 (50 Mcg = 2000 Iu)] Naproxen [Naprosyn] 500 mg PO BID PRN 11/23/23 01/05/24 Lacosamide [Vimpat] 100 mg PO BID 01/05/24 01/05/24 Midazolam [Nayzilam] 1 spray NASAL ONCE PRN 01/05/24 01/05/24 lisinopriL [Zestril] 5 mg PO DAILY 01/05/24 01/05/24 Allergies Allergy/AdvReac Type Severity Reaction Status Date / Time diphenhydramine Allergy Confusion Verified 05/07/24 21:12 [From Benadryl] Sulfa (Sulfonamide Allergy Swelling Verified 05/07/24 21:12 Antibiotics) sulfamethoxazole Allergy Swelling Verified 05/07/24 21:12 [From Bactrim] trimethoprim [From Bactrim] Allergy Swelling Verified 05/07/24 21:12 Review of Systems ROS Statement: Those systems with pertinent positive or pertinent negative responses have been documented in the HPI. ROS Other: All systems not noted in ROS Statement are negative. 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 Date of last positivie culture/infection: 2005 MDRO Source:: leg Past Surgical History: Hernia Repair Additional Past Surgical History / Comment(s): forehead reconstruction for head lac as child, VNS implant Past Anesthesia/Blood Transfusion Reactions: No Reported Reaction Past Psychological History: Bipolar, Depression, PTSD, Schizoaffective Disorder Smoking Status: Former smoker Past Alcohol Use History: Occasional Past Drug Use History: Marijuana - Past Family History Father Family Medical History: Cancer Additional Family Medical History / Comment(s): ADOPTED-NOT TOTALLY SURE OF HHX Mother Family Medical History: Cancer Additional Family Medical History / Comment(s): ADOPTED-NOT TOTALLY SURE OF HHX General Exam General appearance: alert, in no apparent distress Head exam: Present: atraumatic, normocephalic, normal inspection Eye exam: Present: normal appearance, PERRL, EOMI. Absent: scleral icterus, conjunctival injection, periorbital swelling ENT exam: Present: normal exam, mucous membranes moist Neck exam: Present: normal inspection. Absent: tenderness, meningismus, lymphadenopathy Respiratory exam: Present: normal lung sounds bilaterally. Absent: respiratory distress, wheezes, rales, rhonchi, stridor Cardiovascular Exam: Present: regular rate, normal rhythm, normal heart sounds. Absent: systolic murmur, diastolic murmur, rubs, gallop, clicks GI/Abdominal exam: Present: soft, normal bowel sounds. Absent: distended, tenderness, guarding, rebound, rigid Extremities exam: Present: normal inspection, full ROM, normal capillary refill. Absent: tenderness, pedal edema, joint swelling, calf tenderness Back exam: Present: normal inspection Neurological exam: Present: alert, oriented X3, CN II-XII intact Psychiatric exam: Present: normal affect, normal mood Skin exam: Present: warm, dry, intact, normal color. Absent: rash Course Vital Signs 05/25/24 22:58 Temperature 98.7 F Pulse Rate 98 Respiratory 16 Rate Blood Pressure 125/85 O2 Sat by Pulse 95 Oximetry - Reevaluation(s) Reevaluation #1: 05/26/24 00:05 Medical records reviewed Reevaluation #2: 05/26/24 00:05 Patient symptoms improved No recurrent seizures Reevaluation #3: 05/26/24 00:05 Patient informed of results and questions answered Reevaluation #4: Was pt. sent in by a medical professional or institution (, PA, EDUCATION DEPARTMENT REGISTRAR, urgent care, hospital, or [place] [facility] facility...) When possible be specific @ -no Did you speak to anyone other than the patient for history (EMS, parent, family, police, friend...)? What history was obtained from this source @ -no Did you review nursing and triage notes (agree or disagree)? Why? @ -agree Are old charts reviewed (outside hosp., previous admission, EMS record, old EKG, old radiological studies, urgent care reports/EKG's, [place] [facility] facility records)? Report findings @ -yes Differential Diagnosis (chest pain, altered mental status, abdominal pain women, abdominal pain men, vaginal bleeding, weakness, fever, dyspnea, syncope, headache, dizziness, GI bleed, back pain, seizure, CVA, palpatations, mental health, musculoskeletal)? @ -prior EKG interpreted by me (3pts min.). @ -yes X-rays interpreted by me (1pt min.). @ -yes negative for acute disease CT interpreted by me (1pt min.). @ -no U/S interpreted by me (1pt. min.). @ -no What testing was considered but not performed or refused? (CT, X-rays, U/S, labs)? Why? @ -none What meds were considered but not given or refused? Why? @ -none Did you discuss the management of the patient with other professionals (professionals i.e. , PA, EDUCATION DEPARTMENT REGISTRAR, lab, RT, psych nurse, social media senior associate, personal chef, teacher, mail officer, clinical case manager)? Give summary @ -no Was smoking cessation discussed for >3mins.? @ -no Was critical care preformed (if so, how long)? @ -no Were there social determinants of health that impacted care today? How? (H omelessness, low income, unemployed, alcoholism, drug addiction, transportation, low edu. Level, literacy, decrease access to med. care, fpc, rehab)? @ -none Was there de-escalation of care discussed even if they declined (Discuss DNR or withdrawal of care, Hospice)? DNR status @ -no What co-morbidities impacted this encounter? (DM, HTN, Smoking, COPD, CAD, Cancer, CVA, ARF, Chemo, Hep., AIDS, mental health diagnosis, sleep apnea, morbid obesity)? @ -none Was patient admitted / discharged? Hospital course, mention meds given and route, prescriptions, significant lab abnormalities, going to OR and other pertinent info. @ - Undiagnosed new problem with uncertain prognosis? @ -no Drug Therapy requiring intensive monitoring for toxicity (Heparin, Nitro, Insulin, Cardizem)? @ -no Were any procedures done? @ -no Diagnosis/symptom? @ - Acute, or Chronic, or Acute on Chronic? @ -Acute Uncomplicated (without systemic symptoms) or Complicated (systemic symptoms)? @ -Complicated Side effects of treatment? @ -no Exacerbation, Progression, or Severe Exacerbation? @ -exacerbation Poses a threat to life or bodily function? How? (Chest pain, [place], [place], pneumonia, PE, COPD, DKA, ARF, appy, cholecystitis, CVA, Diverticulitis, Homicidal, Suicidal, threat to staff... and all critical care pts) @ -yes Reevaluation #5: Differential Seizure: Recurrent seizure disorder, febrile seizure, alcohol withdrawal, stimulants, meningitis, encephalitis, intercranial hemorrhage, intracranial tumor, stroke, eclampsia, thyrotoxicosis, hypocalcemia, hyponatremia, hypernatremia, hypomagnesemia, psychogenic, this is not meant to be an all-inclusive list. Medical Decision Making - Medical Decision Making 34 male to the ER for evaluation of recurrent seizures. No recurrent seizure here in the ER patient stable for discharge home Disposition Clinical Impression: Epileptic seizure, generalized, Breakthrough seizure, Recurrent seizures Disposition: HOME SELF-CARE Condition: Fair Instructions (If sedation given, give patient instructions): Seizure/Epilepsy Discharge Instructions & Follow-Up, Recurrent Seizures in Adults (ED) Is patient prescribed a controlled substance at d/c from ED?: No Referrals: Marycarmen Gaston MD [Primary Care Provider] - 1-2 days Time of Disposition: 00:30
[2024-05-25 23:07] VITALS: RESP 16; TEMP 98.7
[2024-05-26 00:03] LABS: ALT 57 U/L (4-49); AST 41 U/L (17-59); African American GFR (CKD) >90 (>60 ml/min/1.73 sqM); Albumin 4.9 g/dL (3.5-5.0); Alkaline Phosphatase 71 U/L (38-126); Anion Gap 13 mmol/L; Blood Urea Nitrogen 14 mg/dL (9-20); Calcium 9.9 mg/dL (8.4-10.2); Carbon Dioxide 25 mmol/L (22-30); Chloride 97 mmol/L (98-107); Glucose 100 mg/dL (74-99); Non-African American GFR(CKD) >90 (>60 ml/min/1.73 sqM); Potassium 4.1 mmol/L (3.5-5.1); Sodium 135 mmol/L (137-145); Total Bilirubin 0.6 mg/dL (0.2-1.3)
[2024-05-26 00:51] VITALS: BP 134/78; PULSE 77
[2024-05-26 00:53] LABS: Basophils # (A) 0.1 k/uL (0-0.2); Basophils % (A) 1 %; Eosinophils # (A) 0.1 k/uL (0-0.7); Eosinophils % (A) 1 %; HCT 50.7 % (39.0-53.0); HGB 16.4 gm/dL (13.0-17.5); Lymphocytes # (A) 2.8 k/uL (1.0-4.8); Lymphocytes % (A) 25 %; MCH 28.2 pg (25.0-35.0); MCHC 32.4 g/dL (31.0-37.0); MCV 87.1 fL (80.0-100.0); Mean Platelet Volume 7.6; Monocytes # (A) 0.8 k/uL (0-1.0); Monocytes % (A) 7 %; Neutrophils # (A) 7.2 k/uL (1.3-7.7); Neutrophils % (A) 65 %; Platelet Count 248 k/uL (150-450); RBC 5.82 m/uL (4.30-5.90); RDW 12.9 % (11.5-15.5); WBC 11.1 k/uL (3.8-10.6)
== END 2024-05-26 00:51 | disposition home or self-care (01) ==
LOC: EC 22:55
DX: G40.909 Epilepsy, unspecified, not intractable, without status epilepticus (principal); Z87.891 Personal history of nicotine dependence; Z88.1 Allergy status to other antibiotic agents; Z88.2 Allergy status to sulfonamides; Z88.8 Allergy status to other drugs, medicaments and biological substances
CPT/HCPCS: 36415; 80053; 85025; 99284

== ENCOUNTER 2024-05-31 18:21 | Emergency (ER) | payer OTHER ==
[2024-05-31 18:29] VITALS: PULSE 98
--- NOTE | 2024-05-31 18:50 | ED ---
Upper Extremity HPI - General Chief Complaint: Extremity Injury, Upper Stated Complaint: Right wrist injury Time Seen by Provider: 05/31/24 18:47 Source: patient, RN notes reviewed Mode of arrival: ambulatory Limitations: no limitations - History of Present Illness Initial Comments: 34-year-old male presenting for right hand injury 1 week ago. States last Saturday he was angry and punched a wall. He was seen by his PCP several days ago who performed an x-ray and told him he has a fracture of the ring finger. He was placed in a finger splint. Patient states he continues to have pain to the fourth digit and also his wrist. No other injuries. Denies blood thinners. - Related Data Home Medications Medication Instructions Recorded Confirmed Loratadine [Claritin] 10 mg PO DAILY 01/28/18 01/05/24 Montelukast [Singulair] 10 mg PO DAILY 01/28/18 01/05/24 Fluticasone Propion/Salmeterol 2 puff INHALATION RT-DAILY 07/25/20 01/05/24 [Advair Hfa 230-21 Mcg Inhaler] Butalb/APAP/Caff 50-325-40Mg 1 tab PO BID PRN 12/02/22 01/05/24 [Fioricet 50-325-40] levETIRAcetam [Keppra] 1,500 mg PO Q12HR 12/02/22 01/05/24 ARIPiprazole [Abilify] 15 mg PO HS 08/05/23 01/05/24 Albuterol Sulfate [Albuterol 2 puff INHALATION RT-Q6H PRN 08/05/23 01/05/24 Sulfate Hfa] Cholecalciferol (Vitamin D3) 50 mcg PO DAILY 08/05/23 01/05/24 [Vitamin D3 (50 Mcg = 2000 Iu)] Naproxen [Naprosyn] 500 mg PO BID PRN 11/23/23 01/05/24 Lacosamide [Vimpat] 100 mg PO BID 01/05/24 01/05/24 Midazolam [Nayzilam] 1 spray NASAL ONCE PRN 01/05/24 01/05/24 lisinopriL [Zestril] 5 mg PO DAILY 01/05/24 01/05/24 Allergies Allergy/AdvReac Type Severity Reaction Status Date / Time diphenhydramine Allergy Confusion Verified 05/31/24 18:29 [From Benadryl] Sulfa (Sulfonamide Allergy Swelling Verified 05/31/24 18:29 Antibiotics) sulfamethoxazole Allergy Swelling Verified 05/31/24 18:29 [From Bactrim] trimethoprim [From Bactrim] Allergy Swelling Verified 05/31/24 18:29 Review of Systems ROS Statement: Those systems with pertinent positive or pertinent negative responses have been documented in the HPI. ROS Other: All systems not noted in ROS Statement are negative. 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 Date of last positivie culture/infection: 2005 MDRO Source:: leg Past Surgical History: Hernia Repair Additional Past Surgical History / Comment(s): forehead reconstruction for head lac as child, VNS implant Past Anesthesia/Blood Transfusion Reactions: No Reported Reaction Past Psychological History: Bipolar, Depression, PTSD, Schizoaffective Disorder Smoking Status: Former smoker Past Alcohol Use History: Occasional Past Drug Use History: Marijuana - Past Family History Father Family Medical History: Cancer Additional Family Medical History / Comment(s): ADOPTED-NOT TOTALLY SURE OF HHX Mother Family Medical History: Cancer Additional Family Medical History / Comment(s): ADOPTED-NOT TOTALLY SURE OF HHX General Exam Limitations: no limitations General appearance: alert, in no apparent distress Head exam: Present: atraumatic, normocephalic, normal inspection Right Elbow exam: Present: normal inspection, full ROM. Absent: tenderness, swelling Forearm Wrist exam: Present: normal inspection, full ROM. Absent: tenderness, swelling Hand Wrist exam: Present: normal inspection (Mild abrasion at the base of fourth digit of right hand), full ROM, tenderness (Tenderness to medial aspect of right wrist), abrasion. Absent: swelling, laceration, deformity, erythema Vascular: Present: normal capillary refill, radial pulse. Absent: vascular compromise Neurological exam: Present: alert, oriented X3 Psychiatric exam: Present: normal affect, normal mood Skin exam: Present: warm, dry, intact, normal color. Absent: rash Course Vital Signs 05/31/24 18:25 Temperature 97.3 F L Pulse Rate 98 Respiratory 18 Rate Blood Pressure 118/81 O2 Sat by Pulse 97 Oximetry Medical Decision Making - Medical Decision Making Was pt. sent in by a medical professional or institution (, [facility], [employer]ET METAL WELDER, urgent care, hospital, or half-way...) When possible be specific @ -No Did you speak to anyone other than the patient for history (EMS, parent, family, police, friend...)? What history was obtained from this source @ -No Did you review nursing and triage notes (agree or disagree)? Why? @ -I reviewed and agree with nursing and triage notes Were old charts reviewed (outside hosp., previous admission, EMS record, old EKG, old radiological studies, urgent care reports/EKG's, half-way records)? Report findings @ -No old charts were reviewed Differential Diagnosis (chest pain, altered mental status, abdominal pain women, abdominal pain men, vaginal bleeding, weakness, fever, dyspnea, syncope, headache, dizziness, GI bleed, back pain, seizure, CVA, palpatations, mental health, musculoskeletal)? @ -Differential Musculoskeletal Muscular strain, contusion, ligament sprain, fracture, arthritis, septic arthritis, bursitis, cellulitis, muscle spasm, nerve compression, DVT, arterial occlusion, herpes zoster, electrolyte abnormality, tumor.... This is not meant to be in all inclusive list EKG interpreted by me (3pts min.). @ -None X-rays interpreted by me (1pt min.). @ -X-ray right hand/wrist reveal no acute process CT interpreted by me (1pt min.). @ -None done U/S interpreted by me (1pt. min.). @ -None done What testing was considered but not performed or refused? (CT, X-rays, U/S, labs)? Why? @ -None What meds were considered but not given or refused? Why? @ -None Did you discuss the management of the patient with other professionals (professionals i.e. [facility] Chapman, SHEET METAL WELDER, lab, RT, psych nurse, hospice social worker, carbide grinder, teacher, evp chief exploration officer, manager rn case)? Give summary @ -No Was smoking cessation discussed for >3mins.? @ -No Was critical care preformed (if so, how long)? @ -No Were there social determinants of health that impacted care today? How? (Homelessness, low income, unemployed, alcoholism, drug addiction, transportation, low edu. Level, literacy, decrease access to med. care, custodial, rehab)? @ -No Was there de-escalation of care discussed even if they declined (Discuss DNR or withdrawal of care, Hospice)? DNR status @ -No What co-morbidities impacted this encounter? (DM, HTN, Smoking, COPD, CAD, Cancer, CVA, ARF, Chemo, Hep., AIDS, mental health diagnosis, sleep apnea, morbid obesity)? @ -None Was patient admitted / discharged? Hospital course, mention meds given and route, prescriptions, significant lab abnormalities, going to OR and other pertinent info. @ -Discharge. This is a 34-year-old male presenting for right hand injury 1 week ago after punching a wall. There is tenderness to the medial aspect of right wrist. Neurovascularly intact. Provided with dose of ibuprofen for supportive care. X-ray right hand/wrist revealed no acute process. No sign of boxer's fracture. Discussed diagnosis of right hand sprain with patient. Alfonso wrap applied and supportive care discussed as well as return precautions. Case was discussed with my ED attending Dr. Crump. Undiagnosed new problem with uncertain prognosis? @ -No Drug Therapy requiring intensive monitoring for toxicity (Heparin, Nitro, Insulin, Cardizem)? @ -No Were any procedures done? @ -No Diagnosis/symptom? @ -Right hand sprain Acute, or Chronic, or Acute on Chronic? @ -Acute Uncomplicated (without systemic symptoms) or Complicated (systemic symptoms)? @ -Uncomplicated Side effects of treatment? @ -No Exacerbation, Progression, or Severe Exacerbation? @ -No Poses a threat to life or bodily function? How? (Chest pain, [place], [place], pneumonia, PE, COPD, DKA, ARF, appy, cholecystitis, CVA, Diverticulitis, Homicidal, Suicidal, threat to staff... and all critical care pts) @ -No Disposition Clinical Impression: Sprain of right hand Disposition: HOME SELF-CARE Condition: Stable Instructions (If sedation given, give patient instructions): Hand Sprain (ED) Additional Instructions: Please return to the Emergency Department if symptoms worsen or any other concerns. Is patient prescribed a controlled substance at d/c from ED?: No Referrals: Marycarmen Gaston MD [Primary Care Provider] - 1-2 days Time of Disposition: 19:36
[2024-05-31] MEDS: IBUPROFEN 800 MG TAB PO STA (19:08)
--- NOTE | 2024-05-31 19:24 | XR ---
EXAMINATION TYPE: XR wrist complete RT DATE OF EXAM: 05/31/2024 7:20 PM COMPARISON: None. CLINICAL INDICATION: Male, 34 years old with history of right wrist injury, pain TECHNIQUE: Frontal, lateral and oblique images of the right wrist are obtained. Scaphoid view also o btained. FINDINGS: There is no acute fracture/dislocation evident in the right wrist. The joint spaces in th e right wrist appear within normal limits. The overlying soft tissue appears unremarkable. IMPRESSION: There is no acute fracture or dislocation in the right wrist. [facility], , 05/31/2024 7:22 PM
--- NOTE | 2024-05-31 19:25 | XR ---
EXAMINATION TYPE: XR hand complete RT DATE OF EXAM: 05/31/2024 7:20 PM COMPARISON: None. CLINICAL INDICATION: Male, 34 years old with history of right hand injury, pain TECHNIQUE: XR hand complete RT XX views were obtained. FINDINGS: There is no acute fracture/dislocation evident. The joint spaces appear within normal limits. The ov erlying soft tissue appears unremarkable. IMPRESSION: No acute fracture or dislocation. [facility], , 05/31/2024 7:23 PM
[2024-05-31 19:50] VITALS: BP 121/73; RESP 20; TEMP 98
== END 2024-05-31 19:48 | disposition home or self-care (01) ==
LOC: EC 18:21
DX: S63.91XA Sprain of unspecified part of right wrist and hand, initial encounter (principal); Z88.1 Allergy status to other antibiotic agents; Z88.2 Allergy status to sulfonamides; Z88.8 Allergy status to other drugs, medicaments and biological substances; Z87.891 Personal history of nicotine dependence; W22.01XA Walked into wall, initial encounter
CPT/HCPCS: 99283

== ENCOUNTER 2024-07-21 03:25 | Inpatient (IN) | payer OTHER ==
--- NOTE | 2024-07-21 03:37 | ED ---
General Adult HPI - General Stated complaint: Unresponsive Time Seen by Provider: 07/21/24 03:32 Source: family, RN notes reviewed, old records reviewed Limitations: altered mental status - History of Present Illness Initial comments: 34-year-old male brought to the emergency department for being unresponsive. Upon arrival patient was brought in by private vehicle and family was doing CPR in the car. He was brought immediately back to trauma bay 1 with continued CPR in progress, initial pulse check and initial vital signs revealed that the patient had an organized cardiac rhythm, stable blood pressure, normal respiration. Patient does have a prolonged seizure history, concerned that this may have been related to seizure rather than a primary cardiac event. - Related Data Home Medications Medication Instructions Recorded Confirmed Loratadine [Claritin] 10 mg PO DAILY 01/28/18 01/05/24 Montelukast [Singulair] 10 mg PO DAILY 01/28/18 01/05/24 Fluticasone Propion/Salmeterol 2 puff INHALATION RT-DAILY 07/25/20 01/05/24 [Advair Hfa 230-21 Mcg Inhaler] Butalb/APAP/Caff 50-325-40Mg 1 tab PO BID PRN 12/02/22 01/05/24 [Fioricet 50-325-40] levETIRAcetam [Keppra] 1,500 mg PO Q12HR 12/02/22 01/05/24 ARIPiprazole [Abilify] 15 mg PO HS 08/05/23 01/05/24 Albuterol Sulfate [Albuterol 2 puff INHALATION RT-Q6H PRN 08/05/23 01/05/24 Sulfate Hfa] Cholecalciferol (Vitamin D3) 50 mcg PO DAILY 08/05/23 01/05/24 [Vitamin D3 (50 Mcg = 2000 Iu)] Naproxen [Naprosyn] 500 mg PO BID PRN 11/23/23 01/05/24 Lacosamide [Vimpat] 100 mg PO BID 01/05/24 01/05/24 Midazolam [Nayzilam] 1 spray NASAL ONCE PRN 01/05/24 01/05/24 lisinopriL [Zestril] 5 mg PO DAILY 01/05/24 01/05/24 Allergies Allergy/AdvReac Type Severity Reaction Status Date / Time diphenhydramine Allergy Confusion Verified 05/31/24 18:29 [From Benadryl] Sulfa (Sulfonamide Allergy Swelling Verified 05/31/24 18:29 Antibiotics) sulfamethoxazole Allergy Swelling Verified 05/31/24 18:29 [From Bactrim] trimethoprim [From Bactrim] Allergy Swelling Verified 05/31/24 18:29 Review of Systems ROS Statement: Those systems with pertinent positive or pertinent negative responses have been documented in the HPI. ROS Other: All systems not noted in ROS Statement are negative. 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 Date of last positivie culture/infection: 2005 MDRO Source:: leg Past Surgical History: Hernia Repair Additional Past Surgical History / Comment(s): forehead reconstruction for head lac as child, VNS implant Past Anesthesia/Blood Transfusion Reactions: No Reported Reaction Past Psychological History: Bipolar, Depression, PTSD, Schizoaffective Disorder Smoking Status: Former smoker Past Alcohol Use History: Occasional Past Drug Use History: Marijuana - Past Family History Father Family Medical History: Cancer Additional Family Medical History / Comment(s): ADOPTED-NOT TOTALLY SURE OF HHX Mother Family Medical History: Cancer Additional Family Medical History / Comment(s): ADOPTED-NOT TOTALLY SURE OF HHX General Exam General appearance: in no apparent distress, obtunded Head exam: Present: atraumatic, normocephalic Eye exam: Present: normal appearance, PERRL ENT exam: Present: mucous membranes moist Respiratory exam: Present: normal lung sounds bilaterally. Absent: respiratory distress, wheezes Cardiovascular Exam: Present: regular rate, normal rhythm GI/Abdominal exam: Present: soft. Absent: distended, tenderness, guarding Extremities exam: Present: normal inspection, normal capillary refill. Absent: pedal edema Neurological exam: Present: motor sensory deficit (No withdrawal to pain). Absent: altered Skin exam: Present: warm, dry, intact Course Vital Signs 07/21/24 07/21/24 07/21/24 03:30 03:45 04:00 Temperature 97.2 F L Pulse Rate 96 93 86 Respiratory 18 18 16 Rate Blood Pressure 120/94 129/91 133/88 O2 Sat by Pulse 100 99 100 Oximetry 07/21/24 07/21/24 04:15 04:30 Temperature Pulse Rate 88 93 Respiratory 15 18 Rate Blood Pressure 137/89 132/82 O2 Sat by Pulse 99 99 Oximetry - Reevaluation(s) Reevaluation #1: 07/21/24 04:55 Patient reevaluated, normal vitals, normal respiratory pattern, positive corneal reflex, symmetric pupillary reflex, positive gag reflex. Medical Decision Making - Medical Decision Making Was pt. sent in by a medical professional or institution (, PA, [facility], urgent care, hospital, or usp...) When possible be specific @ -No Did you speak to anyone other than the patient for history (EMS, parent, family, police, friend...)? What history was obtained from this source @Patient's family member including sister Did you review nursing and triage notes (agree or disagree)? Why? @ -I reviewed and agree with nursing and triage notes Were old charts reviewed (outside hosp., previous admission, EMS record, old EKG, old radiological studies, urgent care reports/EKG's, usp records)? Report findings @ -No old charts were reviewed Differential Seizure: Recurrent seizure disorder, febrile seizure, alcohol withdrawal, stimulants, meningitis, encephalitis, intercranial hemorrhage, intracranial tumor, stroke, eclampsia, thyrotoxicosis, hypocalcemia, hyponatremia, hypernatremia, hypomagnesemia, psychogenic, this is not meant to be an all-inclusive list. EKG interpreted by me (3pts min.). @Sinus rhythm rate of 90, NC interval 220, QRS duration [address] segment elevation. X-rays interpreted by me (1pt min.). @Chest x-ray negative for acute cardiopulmonary findings CT interpreted by me (1pt min.). @CT brain negative for intracranial hemorrhage or mass effect U/S interpreted by me (1pt. min.). @ -None done What testing was considered but not performed or refused? (CT, X-rays, U/S, labs)? Why? @ -None What meds were considered but not given or refused? Why? @ -None Did you discuss the management of the patient with other professionals (professionals i.e. , AXEL, [facility], lab, RT, psych nurse, licensed master social worker, tax technician, teacher, guest relation officer, case specialist)? Give summary @ -[facility]. Was smoking cessation discussed for >3mins.? @ -No Was critical care preformed (if so, how long)? @ yes 35 min Were there social determinants of health that impacted care today? How? (Home lessness, low income, unemployed, alcoholism, drug addiction, transportation, low edu. Level, literacy, decrease access to med. care, assisted, rehab)? @ -No Was there de-escalation of care discussed even if they declined (Discuss DNR or withdrawal of care, Hospice)? DNR status @ -No What co-morbidities impacted this encounter? (DM, HTN, Smoking, COPD, CAD, Cancer, CVA, ARF, Chemo, Hep., AIDS, mental health diagnosis, sleep apnea, morbid obesity)? @Seizure disorder. Was patient admitted / discharged? Hospital course, mention meds given and route, prescriptions, significant lab abnormalities, going to OR and other pertinent info. @ -34-year-old male with known seizure disorder presents initially for evaluation of seizure but has an episode of unresponsiveness in his vehicle and CPR was initiated. Patient was transported from his vehicle to the resuscitation bay where on initial pulse check the patient had a strong carotid pulse and stable vitals. I suspect that his unresponsive episode was related to seizure rather than a primary cardiac event. Laboratory test including CBC, CMP, lactic acid is unremarkable. Patient observed in the emergency department without complete return to normal level of consciousness, suspect prolonged seizure with postictal phase. Head CT is negative for intracranial hemorrhage or mass effect. Patient will be admitted for further evaluation. Case discussed with [facility]. Undiagnosed new problem with uncertain prognosis? @ -No Drug Therapy requiring intensive monitoring for toxicity (Heparin, Nitro, Insulin, Cardizem)? @ -No Were any procedures done? @ -No Diagnosis/symptom? @ -Seizure with postictal Acute, or Chronic, or Acute on Chronic? @ -Acute on chronic Uncomplicated (without systemic symptoms) or Complicated (systemic symptoms)? @ -Default Side effects of treatment? @ -No Exacerbation, Progression, or Severe Exacerbation? @ -No Poses a threat to life or bodily function? How? (Chest pain, [place], [place], pneumonia, PE, COPD, DKA, ARF, appy, cholecystitis, CVA, Diverticulitis, Homicidal, Suicidal, threat to staff... and all critical care pts) @Yes, status epilepticus - Lab Data Result diagrams: 07/21/24 03:38 07/21/24 03:38 Lab Results 07/21/24 07/21/24 07/21/24 Range/Units 03:38 03:38 03:38 WBC 10.38 H (4.50-10.00) 10*3/uL RBC 5.73 H (4.40-5.60) 10*6/uL Hgb 16.4 (13.0-17.0) g/dL Hct 47.7 (39.6-50.0) % MCV 83.2 (80.0-97.0) fL MCH 28.6 (27.0-32.0) pg MCHC 34.4 (32.0-37.0) g/dL Plt Count 279 (140-440) 10*3/uL MPV 9.0 L (9.5-12.2) fL Immature Gran % (Auto) 0.5 % Neutrophils % 51.3 % Lymphocytes % 33.6 % Monocytes % 11.7 % Eosinophils % 2.1 % Basophils % 0.8 % Immature Gran # 0.05 H (0.00-0.04) 10*3/uL Neutrophils # 5.33 (1.80-7.70) 10*3/uL Lymphocytes # 3.49 (0.90-5.00) 10*3/uL Monocytes # 1.21 H (0.20-1.00) 10*3/uL Eosinophils # 0.22 (0.04-0.35) 10*3/uL Basophils # 0.08 (0.00-0.10) 10*3/uL PT 11.3 (10.0-12.5) sec INR 1.0 (<1.2) APTT 22.6 (22.0-30.0) sec Sodium 140 (137-145) mmol/L Potassium 3.8 (3.5-5.1) mmol/L Chloride 103 (98-107) mmol/L Carbon Dioxide 27 (22-30) mmol/L Anion Gap 10 mmol/L BUN 16 (9-20) mg/dL Creatinine 0.97 (0.66-1.25) mg/dL Est GFR (CKD-EPI)AfAm >90 (>60 ml/min/1.73 sqM) Est GFR (CKD-EPI)NonAf >90 (>60 ml/min/1.73 sqM) Glucose 116 H (74-99) mg/dL Plasma Lactic Acid Jorje (0.7-2.0) mmol/L Calcium 9.8 (8.4-10.2) mg/dL Magnesium 1.9 (1.6-2.3) mg/dL Total Bilirubin 0.7 (0.2-1.3) mg/dL AST 44 (17-59) U/L ALT 67 H (4-49) U/L Alkaline Phosphatase 71 (38-126) U/L Troponin I (0.000-0.034) ng/mL Total Protein 7.9 (6.3-8.2) g/dL Albumin 4.9 (3.5-5.0) g/dL Urine Color Urine Appearance (Clear) Urine pH (5.0-8.0) Ur Specific [place] (1.001-1.035) Urine Protein (Negative) Urine Glucose (UA) (Negative) Urine Ketones (Negative) Urine Blood (Negative) Urine Nitrite (Negative) Urine Bilirubin (Negative) Urine Urobilinogen (<2.0) mg/dL Ur Leukocyte Esterase (Negative) Urine RBC (0-5) /hpf Urine WBC (0-5) /hpf Ur Squamous Epith Cells (0-4) /hpf Urine Mucus (None) /hpf Urine Opiates Screen (NotDetected) Ur Oxycodone Screen (NotDetected) Urine Methadone Screen (NotDetected) Ur Barbiturates Screen (NotDetected) U Tricyclic Antidepress (NotDetected) Ur Phencyclidine Scrn (NotDetected) Ur Amphetamines Screen (NotDetected) U Methamphetamines Scrn (NotDetected) U Benzodiazepines Scrn (NotDetected) Urine Cocaine Screen (NotDetected) U Marijuana (THC) Screen (NotDetected) Serum Alcohol <10 mg/dL 07/21/24 07/21/24 07/21/24 Range/Units 03:38 03:38 03:47 WBC (4.50-10.00) 10*3/uL RBC (4.40-5.60) 10*6/uL Hgb (13.0-17.0) g/dL Hct (39.6-50.0) % MCV (80.0-97.0) fL MCH (27.0-32.0) pg MCHC (32.0-37.0) g/dL Plt Count (140-440) 10*3/uL MPV (9.5-12.2) fL Immature Gran % (Auto) % Neutrophils % % Lymphocytes % % Monocytes % % Eosinophils % % Basophils % % Immature Gran # (0.00-0.04) 10*3/uL Neutrophils # (1.80-7.70) 10*3/uL Lymphocytes # (0.90-5.00) 10*3/uL Monocytes # (0.20-1.00) 10*3/uL Eosinophils # (0.04-0.35) 10*3/uL Basophils # (0.00-0.10) 10*3/uL PT (10.0-12.5) sec INR (<1.2) APTT (22.0-30.0) sec Sodium (137-145) mmol/L Potassium (3.5-5.1) mmol/L Chloride (98-107) mmol/L Carbon Dioxide (22-30) mmol/L Anion Gap mmol/L BUN (9-20) mg/dL Creatinine (0.66-1.25) mg/dL Est GFR (CKD-EPI)AfAm (>60 ml/min/1.73 sqM) Est GFR (CKD-EPI)NonAf (>60 ml/min/1.73 sqM) Glucose (74-99) mg/dL Plasma Lactic Acid Jorje 1.5 (0.7-2.0) mmol/L Calcium (8.4-10.2) mg/dL Magnesium (1.6-2.3) mg/dL Total Bilirubin (0.2-1.3) mg/dL AST (17-59) U/L ALT (4-49) U/L Alkaline Phosphatase (38-126) U/L Troponin I <0.012 (0.000-0.034) ng/mL Total Protein (6.3-8.2) g/dL Albumin (3.5-5.0) g/dL Urine Color Yellow Urine Appearance Clear (Clear) Urine pH 6.0 (5.0-8.0) Ur Specific [place] 1.026 (1.001-1.035) Urine Protein 1+ H (Negative) Urine Glucose (UA) Negative (Negative) Urine Ketones Negative (Negative) Urine Blood Negative (Negative) Urine Nitrite Negative (Negative) Urine Bilirubin Negative (Negative) Urine Urobilinogen <2.0 (<2.0) mg/dL Ur Leukocyte Esterase Negative (Negative) Urine RBC 1 (0-5) /hpf Urine WBC 3 (0-5) /hpf Ur Squamous Epith Cells <1 (0-4) /hpf Urine Mucus Many H (None) /hpf Urine Opiates Screen (NotDetected) Ur Oxycodone Screen (NotDetected) Urine Methadone Screen (NotDetected) Ur Barbiturates Screen (NotDetected) U Tricyclic Antidepress (NotDetected) Ur Phencyclidine Scrn (NotDetected) Ur Amphetamines Screen (NotDetected) U Methamphetamines Scrn (NotDetected) U Benzodiazepines Scrn (NotDetected) Urine Cocaine Screen (NotDetected) U Marijuana (THC) Screen (NotDetected) Serum Alcohol mg/dL 07/21/24 Range/Units 03:47 WBC (4.50-10.00) 10*3/uL RBC (4.40-5.60) 10*6/uL Hgb (13.0-17.0) g/dL Hct (39.6-50.0) % MCV (80.0-97.0) fL MCH (27.0-32.0) pg MCHC (32.0-37.0) g/dL Plt Count (140-440) 10*3/uL MPV (9.5-12.2) fL Immature Gran % (Auto) % Neutrophils % % Lymphocytes % % Monocytes % % Eosinophils % % Basophils % % Immature Gran # (0.00-0.04) 10*3/uL Neutrophils # (1.80-7.70) 10*3/uL Lymphocytes # (0.90-5.00) 10*3/uL Monocytes # (0.20-1.00) 10*3/uL Eosinophils # (0.04-0.35) 10*3/uL Basophils # (0.00-0.10) 10*3/uL PT (10.0-12.5) sec INR (<1.2) APTT (22.0-30.0) sec Sodium (137-145) mmol/L Potassium (3.5-5.1) mmol/L Chloride (98-107) mmol/L Carbon Dioxide (22-30) mmol/L Anion Gap mmol/L BUN (9-20) mg/dL Creatinine (0.66-1.25) mg/dL Est GFR (CKD-EPI)AfAm (>60 ml/min/1.73 sqM) Est GFR (CKD-EPI)NonAf (>60 ml/min/1.73 sqM) Glucose (74-99) mg/dL Plasma Lactic Acid Jorje (0.7-2.0) mmol/L Calcium (8.4-10.2) mg/dL Magnesium (1.6-2.3) mg/dL Total Bilirubin (0.2-1.3) mg/dL AST (17-59) U/L ALT (4-49) U/L Alkaline Phosphatase (38-126) U/L Troponin I (0.000-0.034) ng/mL Total Protein (6.3-8.2) g/dL Albumin (3.5-5.0) g/dL Urine Color Urine Appearance (Clear) Urine pH (5.0-8.0) Ur Specific [place] (1.001-1.035) Urine Protein (Negative) Urine Glucose (UA) (Negative) Urine Ketones (Negative) Urine Blood (Negative) Urine Nitrite (Negative) Urine Bilirubin (Negative) Urine Urobilinogen (<2.0) mg/dL Ur Leukocyte Esterase (Negative) Urine RBC (0-5) /hpf Urine WBC (0-5) /hpf Ur Squamous Epith Cells (0-4) /hpf Urine Mucus (None) /hpf Urine Opiates Screen Not Detected (NotDetected) Ur Oxycodone Screen Not Detected (NotDetected) Urine Methadone Screen Not Detected (NotDetected) Ur Barbiturates Screen Not Detected (NotDetected) U Tricyclic Antidepress Not Detected (NotDetected) Ur Phencyclidine Scrn Not Detected (NotDetected) Ur Amphetamines Screen Not Detected (NotDetected) U Methamphetamines Scrn Not Detected (NotDetected) U Benzodiazepines Scrn Not Detected (NotDetected) Urine Cocaine Screen Not Detected (NotDetected) U Marijuana (THC) Screen Detected H (NotDetected) Serum Alcohol mg/dL Critical Care Time Critical Care Time: Yes Total Critical Care Time: 35 Disposition Clinical Impression: Recurrent seizures Disposition: ADMITTED IP TO THIS [facility] Condition: Stable Is patient prescribed a controlled substance at d/c from ED?: No Referrals: Marycarmen Gaston MD [Primary Care Provider] - 1-2 days Time of Disposition: 04:37
[2024-07-21 03:48] LABS: Basophils # (A) 0.08 10*3/uL (0.00-0.10); Basophils % (A) 0.8 %; Eosinophils # (A) 0.22 10*3/uL (0.04-0.35); Eosinophils % (A) 2.1 %; HCT 47.7 % (39.6-50.0); HGB 16.4 g/dL (13.0-17.0); Lymphocytes # (A) 3.49 10*3/uL (0.90-5.00); Lymphocytes % (A) 33.6 %; MCH 28.6 pg (27.0-32.0); MCHC 34.4 g/dL (32.0-37.0); MCV 83.2 fL (80.0-97.0); Monocytes # (A) 1.21 10*3/uL (0.20-1.00); Monocytes % (A) 11.7 %; Neutrophils # (A) 5.33 10*3/uL (1.80-7.70); Neutrophils % (A) 51.3 %; Platelet Count 279 10*3/uL (140-440); RBC 5.73 10*6/uL (4.40-5.60); RDW 12.7 % (11.5-14.5); WBC 10.38 10*3/uL (4.50-10.00)
[2024-07-21 03:58] LABS: Partial Thromboplastin Time 22.6 sec (22.0-30.0); Prothrombin Time 11.3 sec (10.0-12.5)
[2024-07-21 04:01] LABS: ALT 67 U/L (4-49); AST 44 U/L (17-59); African American GFR (CKD) >90 (>60 ml/min/1.73 sqM); Albumin 4.9 g/dL (3.5-5.0); Alcohol <10 mg/dL; Alkaline Phosphatase 71 U/L (38-126); Anion Gap 10 mmol/L; Blood Urea Nitrogen 16 mg/dL (9-20); Calcium 9.8 mg/dL (8.4-10.2); Carbon Dioxide 27 mmol/L (22-30); Chloride 103 mmol/L (98-107); Glucose 116 mg/dL (74-99); Magnesium 1.9 mg/dL (1.6-2.3); Non-African American GFR(CKD) >90 (>60 ml/min/1.73 sqM); Potassium 3.8 mmol/L (3.5-5.1); Sodium 140 mmol/L (137-145); Total Bilirubin 0.7 mg/dL (0.2-1.3); Total Protein 7.9 g/dL (6.3-8.2)
[2024-07-21 04:07] LABS: Appearance,Urine Clear (Clear); Bilirubin,Urine Negative (Negative); Blood,Urine Negative (Negative); Color,Urine Yellow; Glucose,Urine (UA) Negative (Negative); Ketones,Urine Negative (Negative); Leukocyte Esterase,Urine Negative (Negative); Mucus,Urine Many /hpf; Nitrite,Urine Negative (Negative); Protein,Urine 1+ (Negative); RBC,Urine 1 /hpf (0-5); Specific Gravity,Urine 1.026 (1.001-1.035); Squamous Epithelial Cell,Urine <1 /hpf (0-4); Urobilinogen,Urine <2.0 mg/dL (<2.0); WBC,Urine 3 /hpf (0-5)
[2024-07-21 04:08] LABS: Amphetamine Screen,Urine Not Detected (NotDetected); Barbiturate Screen,Urine Not Detected (NotDetected); Benzodiazepines Screen,Urine Not Detected (NotDetected); Cocaine Screen,Urine Not Detected (NotDetected); Methadone Screen, Urine Not Detected (NotDetected); Opiate Screen,Urine Not Detected (NotDetected); Oxycodone Screen, Urine Not Detected (NotDetected); Phencyclidine Screen,Urine Not Detected (NotDetected); Tricyclic Antidepressant,Urine Not Detected (NotDetected); Urn Cannabinoid Scrn Detected (NotDetected)
--- NOTE | 2024-07-21 04:10 | CT ---
EXAM: CT Head Without Intravenous Contrast CLINICAL HISTORY: ITS.REASON CT Reason: ams/possible seizure TECHNIQUE: Axial computed tomography images of the head/brain without intravenous contrast. Coronal and sagittal reconstructions are performed. CTDI is 49.1 mGy and DLP is 1245.4 mGy-cm. This CT exam was performed using one or more of the following dose reduction techniques: automated exposure control, adjustment of the mA and/or kV according to patient size, and/or use of iterative reconstruction technique. 379 images COMPARISON: 01/05/2024 FINDINGS: Brain: Unremarkable. No hemorrhage. No significant white matter disease. No edema. Ventricles: Unremarkable. No ventriculomegaly. Bones/joints: No acute findings. Soft tissues: Unremarkable. Sinuses: Unremarkable as visualized. No acute sinusitis. Mastoid air cells: Unremarkable as visualized. No mastoid effusion. IMPRESSION: No acute intracranial findings or substantial change
[2024-07-21] MEDS: levETIRAcetam IV 2,000 MG in SODIUM CHLORIDE 0.9% 250 ML IVPB ONE (04:11)
[2024-07-21] MEDS: SODIUM CHLORIDE 0.9% 1,000 ML IV ONE (04:12)
[2024-07-21] MEDS ORDERED: ACETAMINOPHEN TAB 325 MG TAB PO PRN (04:37)
[2024-07-21] MEDS ORDERED: NALOXONE 0.4 MG/ML 1 ML VIAL IV PRN (04:37)
--- NOTE | 2024-07-21 04:43 | XR ---
EXAM: XR Chest, 1 View CLINICAL HISTORY: AMS TECHNIQUE: Frontal view of the chest. COMPARISON: 08/26/23 FINDINGS: Lungs: Right lung is underinflated. Small amount of left retrocardiac opacity suspected. Pleural space: Unremarkable. Mediastinum: Unremarkable. Normal mediastinal contour. Bones/joints: No acute findings. Tubes, lines and devices: Battery pack of neurostimulator over left upper chest. IMPRESSION: Suspect small amount of left retrocardiac opacity, may suggest atelectasis and/pneumonia versus aspiration..
[2024-07-21] MEDS: SODIUM CHLORIDE 0.9% 1,000 ML IV SCH (06:24)
[2024-07-21] MEDS ORDERED: LORazepam 1 MG/0.5 ML VIAL IV PRN (06:30)
--- NOTE | 2024-07-21 06:39 | P.CNPUL ---
History of Present Illness Consult date: 07/21/24 Requesting physician: Rick Mullins Reason for consult: other (Seizure) Chief complaint: Seizure History of present illness: Patient is a 34-year-old male with past medical history significant for seizure disorder. Apparently, patient had seizure activity while at the [employer] station on [address]. Family tried to activate his vagal nerve stimulator without success, and could not locate his midazolam nasal spray. Subsequently, he went unresponsive. Family started doing CPR in the car, and this was continued by hospital staff on arrival. The patient was immediately brought to trauma bay 1 with CPR in progress. Pulse was palpable on initial pulse check and patient had organized cardiac rhythm on monitor. Blood pressure was stable. Respirations were normal. Did not require intubation. Follow-up chest x-ray did not show any acute rib fractures, pneumothoraces or pleural effusions. Possible left retrocardiac opacity, atelectasis versus aspiration. Brain CT did not show any acute intracranial findings. Serum alcohol level was less than 10 on arrival. Urine toxicology is remarkable for marijuana. CBC unremarkable. CMP also unremarkable, electrolytes WDL, creatinine 0.97, glucose 116. Lactic 1.5. Troponin less than 0.012. EG: Sinus rhythm, first-degree AV block, rate 90 bpm, no acute ischemic changes. Patient currently being evaluated in the ER, is lethargic, and appears postictal. Will follow commands/answer simple questioning. No further seizure activity. No tongue biting. No vomiting. No loss of bowel or bladder control. Family are present at bedside. According to family, patient has longstanding history of seizure disorder. He does follow with a local neurologist, Dr. Chappell. Reportedly has not missed any of his antiepileptic medications. Did have 2 beers earlier in the day. Current vital signs: Temperature 97.2 F, heart rate 93 bpm, blood pressure 130/85 mmHg, even nonlabored breathing, SPO2 recorded at 97% on 2 L/min nasal cannula. Review of Systems ROS unobtainable: due to mental status Past Medical History Past Medical History: Asthma, Liver Disease, Seizure Disorder Additional Past Medical History / Comment(s): PTSD, chronic migraines, HX SEIZURES-LAST ONE 05/30/22 (PT STATES SEIZURES ARE STRESS INDUCED), liver disea se d/t alcohol History of Any Multi-Drug Resistant Organisms: MRSA Date of last positivie culture/infection: 2005 MDRO Source:: leg Past Surgical History: Hernia Repair Additional Past Surgical History / Comment(s): forehead reconstruction for head lac as child, VNS implant Past Anesthesia/Blood Transfusion Reactions: No Reported Reaction Past Psychological History: Bipolar, Depression, PTSD, Schizoaffective Disorder Smoking Status: Former smoker Past Alcohol Use History: Occasional Past Drug Use History: Marijuana - Past Family History Father Family Medical History: Cancer Additional Family Medical History / Comment(s): ADOPTED-NOT TOTALLY SURE OF HHX Mother Family Medical History: Cancer Additional Family Medical History / Comment(s): ADOPTED-NOT TOTALLY SURE OF HHX Medications and Allergies Home Medications Medication Instructions Recorded Confirmed Type Loratadine [Claritin] 10 mg PO DAILY 01/28/18 07/21/24 History Albuterol Sulfate [Albuterol 2 puff INHALATION RT-Q6H PRN 08/05/23 07/21/24 History Sulfate Hfa] Cholecalciferol (Vitamin D3) 50 mcg PO DAILY 08/05/23 07/21/24 History [Vitamin D3 (50 Mcg = 2000 Iu)] Lacosamide [Vimpat] 100 mg PO BID 01/05/24 07/21/24 History Midazolam [Nayzilam] 1 spray NASAL ONCE PRN 01/05/24 07/21/24 History lisinopriL [Zestril] 5 mg PO DAILY 01/05/24 07/21/24 History Brivaracetam [Briviact] 100 mg PO BID 07/21/24 07/21/24 History Fluticasone Propion/Salmeterol 2 puff INHALATION RT-BID 07/21/24 07/21/24 History [Advair Hfa 230-21 Mcg Inhaler] amLODIPine [Norvasc] 5 mg PO DAILY 07/21/24 07/21/24 History hydroCHLOROthiazide [Hydrodiuril] 25 mg PO DAILY 07/21/24 07/21/24 History Allergies Allergy/AdvReac Type Severity Reaction Status Date / Time diphenhydramine Allergy Confusion Verified 07/21/24 10:01 [From Benadryl] Sulfa (Sulfonamide Allergy Swelling Verified 07/21/24 10:01 Antibiotics) sulfamethoxazole Allergy Swelling Verified 07/21/24 10:01 [From Bactrim] trimethoprim [From Bactrim] Allergy Swelling Verified 07/21/24 10:01 zinc Allergy Unknown Verified 07/21/24 10:01 Physical Exam Vitals: Vital Signs Temp Pulse Resp BP Pulse Ox 07/21/24 05:15 93 130/85 97 07/21/24 05:00 93 133/85 97 07/21/24 04:45 93 132/82 93 L 07/21/24 04:30 93 18 132/82 99 07/21/24 04:15 88 15 137/89 99 07/21/24 04:00 86 16 133/88 100 07/21/24 03:45 93 18 129/91 99 07/21/24 03:30 97.2 F L 96 18 120/94 100 Intake and Output 07/20/24 07/20/24 07/21/24 14:59 22:59 06:59 Other: Weight 149.65 kg GENERAL EXAM: Lethargic, 34-year-old male, postictal appearance, will occasionally follow commands and answer simple questions HEAD: Normocephalic and atraumatic EYES: Normal reaction of pupils, equal size. Anicteric. No nystagmus. NOSE: Clear with pink turbinates. THROAT: No erythema or exudates. No notable tongue biting. NECK: No masses, no JVD. CHEST: No chest wall deformity. LUNGS: Equal air entry with no crackles, wheeze, rhonchi or dullness. On 2 L/min nasal cannula.. No conversational dyspnea or accessory muscle use.. CVS: S1 and S2 normal with no audible murmur, regular rhythm. No extra heart sounds ABDOMEN: No hepatosplenomegaly, active bowel sounds, no guarding or rigidity. SPINE: No scoliosis or deformity SKIN: No rashes CENTRAL NERVOUS SYSTEM: No focal deficits, tone is normal in all 4 extremities. EXTREMITIES: There is no peripheral edema, clubbing, or cyanosis. Peripheral pulses are intact. Results - Laboratory Findings CBC and BMP: 07/21/24 03:38 07/21/24 03:38 PT/INR, D-dimer PT 11.3 sec (10.0-12.5) 07/21/24 03:38 INR 1.0 (<1.2) 07/21/24 03:38 Abnormal lab findings: Abnormal Labs 07/21/24 07/21/2407/21/25 03:38 03:38 03:47 WBC 10.38 H RBC 5.73 H MPV 9.0 L Immature Gran # 0.05 H Monocytes # 1.21 H Glucose 116 H ALT 67 H Urine Protein 1+ H Urine Mucus Many H U Marijuana (THC) Screen 07/21/24 03:47 WBC RBC MPV Immature Gran # Monocytes # Glucose ALT Urine Protein Urine Mucus U Marijuana (THC) Screen Detected H - Diagnostic Findings Chest x-ray: image reviewed Assessment and Plan Assessment: Seizure disorder, with breakthrough seizure. Currently postictal. The patient is currently on Briviact. Followed up by neurology, Dr. Chappell and the patient has been taken off Vimpat and Keppra. Brief CPR Implanted vagal nerve stimulator Hypertension Obesity, with a BMI of 42.4 kg/m Marijuana user Anxiety/depression/PTSD Chronic bronchial asthma, maintained on Advair on outpatient basis Obstructive sleep apnea and the patient has a CPAP unit at home. Plan: Patient was loaded with 2 g of Keppra in the ED and started on Keppra 1500 mg twice daily. Also, Vimpat 100 mg twice daily was restarted. Outpatient, the patient has been maintained on Briviact. Add as needed Ativan for breakthrough seizures Currently, no seizure activity noted. Patient appears postictal. He will awaken and answer simple questioning. He is able to protect his airway. Layperson CPR was initiated outside of the hospital. 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 Doubtful the patient ever had a cardiac arrest. Post CPR chest x- ray does not show any acute rib fractures, pneumothoraces or pleural effusions. Possible left retrocardiac opacity concerning for atelectasis versus aspiration. Brain CT did not show any acute intracranial process Serum alcohol level less than 10 Urine toxicology screen only remarkable for marijuana Continue seizure precautions Neurology is consulted Patient is currently admitted to the intensive care unit for monitoring, and could potentially be downgraded later this morning. I have personally seen and examined the patient, performed the documentation and the assessment and plan as written. Number of minutes spent on the visit:20 This is a joint evaluation that was done along with the nurse practitioner. This evaluation was done more than 30 minutes. The patient was interviewed in the emergency department. He was arousable. was also at the bedside. According to the history, the patient has been maintained on Briviact and the patient has been off Keppra and Vimpat. He has been having seizure episodes and his last seizure activity was around 2 weeks ago. He is still postictal and lethargic. Hemodynamically stable. Will check a CPK level. Urine toxicology was positive for marijuana. No alcoholism. Alcohol level was less than 10. Chest x-ray is stable. Will proceed with neurology consultation. The patient will moved to the intensive care unit with seizure precautions. Hemodynamically stable. Will asked the patient to utilize his home CPAP unit. Time with Patient: Greater than 30
[2024-07-21] MEDS: lisinopriL 5 MG TAB PO SCH (08:28)
[2024-07-21] MEDS: LACOSAMIDE 50 MG TABLET PO SCH (08:28)
[2024-07-21 08:58] LABS: Glucose,Whole Blood 121 mg/dL (70-110)
[2024-07-21] MEDS ORDERED: ENOXAPARIN 40 MG/0.4 ML SYRINGE SQ SCH (10:00)
[2024-07-21] MEDS: ENOXAPARIN 40 MG/0.4 ML SYRINGE SQ SCH (11:27)
--- NOTE | 2024-07-21 20:46 | P.HPIM ---
History of Present Illness H&P Date: 07/21/24 Chief Complaint: Seizures Patient is a 33-year-old male with a known history of seizure disorder, asthma, obstructive sleep apnea, chronic migraine headaches, alcoholic liver disease, depression/bipolar/PTSD/schizoaffective disorder and prior history of smoking and occasional marijuana use. Patient was brought to the hospital due to seizure activity. Patient was at the gas station, started having seizures. Family tried to activate his vagal nerve stimulator without success. Also could not locate his midazolam nasal spray. Subsequently patient went unresponsive and family started CPR and a cough. He was brought to the hospital. Patient did not room for what happened until while he was in the ER. Unresponsive when he came to the hospital. Currently awake alert and oriented. Patient states that he has been taking his medications regularly. He did use marijuana recently. Denied any recent illnesses. On admission EKG showed sinus rhythm with first-degree AV block. CT head showed no acute intracranial findings or midline shift. Chest x-ray showed suspected small amount of left retrocardiac opacity may suggest atelectasis and/or pneumonia versus aspiration. Laboratory data showed WBC 10.3 hemoglobin 16.4 and platelets 279, sodium 140 potassium 3.8 chloride 103 bicarb is 27 BUN 16 and creatinine 0.97 blood sugar 116 lactic acid 1.5 magnesium 1.9 AST 44 ALT 67 alk phos 71 and creatinine phosphokinase 371 and troponin less than 0.012 Urinalysis is negative for infection. UDS is positive for marijuana. Review of Systems Constitutional: Patient denies any fever or chills . No generalized weakness or weight loss. Abdomen: Patient denied nausea vomiting and diarrhea and abdominal pain. Cardiovascular: Patient denies any chest pain or short of breath no palpitations. Respiratory: patient denied any cough or sputum production. No shortness of breath Neurologic: Patient denied any numbness or tingling. no headache. Musculoskeletal: Patient denies any complaints of joint swelling or deformity. Skin: Negative Psychiatric: Negative Endocrine: No heat or cold intolerance. No recent weight gain. Genitourinary: No dysuria or hematuria. All other 14 point ROS negative except the above 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 Date of last positivie culture/infection: 2005 MDRO Source:: leg Past Surgical History: Hernia Repair Additional Past Surgical History / Comment(s): forehead reconstruction for head lac as child, VNS implant Past Anesthesia/Blood Transfusion Reactions: No Reported Reaction Past Psychological History: Bipolar, Depression, PTSD, Schizoaffective Disorder Smoking Status: Former smoker Past Alcohol Use History: Occasional Past Drug Use History: Marijuana - Past Family History Father Family Medical History: Cancer Additional Family Medical History / Comment(s): ADOPTED-NOT TOTALLY SURE OF HHX Mother Family Medical History: Cancer Additional Family Medical History / Comment(s): ADOPTED-NOT TOTALLY SURE OF HHX Medications and Allergies Home Medications Medication Instructions Recorded Confirmed Type Loratadine [Claritin] 10 mg PO DAILY 01/28/18 07/21/24 History Albuterol Sulfate [Albuterol 2 puff INHALATION RT-Q6H PRN 08/05/23 07/21/24 History Sulfate Hfa] Cholecalciferol (Vitamin D3) 50 mcg PO DAILY 08/05/23 07/21/24 History [Vitamin D3 (50 Mcg = 2000 Iu)] Lacosamide [Vimpat] 100 mg PO BID 01/05/24 07/21/24 History Midazolam [Nayzilam] 1 spray NASAL ONCE PRN 01/05/24 07/21/24 History lisinopriL [Zestril] 5 mg PO DAILY 01/05/24 07/21/24 History Brivaracetam [Briviact] 100 mg PO BID 07/21/24 07/21/24 History Fluticasone Propion/Salmeterol 2 puff INHALATION RT-BID 07/21/24 07/21/24 Histo ry [Advair Hfa 230-21 Mcg Inhaler] amLODIPine [Norvasc] 5 mg PO DAILY 07/21/24 07/21/24 History hydroCHLOROthiazide [Hydrodiuril] 25 mg PO DAILY 07/21/24 07/21/24 History Allergies Allergy/AdvReac Type Severity Reaction Status Date / Time diphenhydramine Allergy Confusion Verified 07/21/24 10:01 [From Benadryl] Sulfa (Sulfonamide Allergy Swelling Verified 07/21/24 10:01 Antibiotics) sulfamethoxazole Allergy Swelling Verified 07/21/24 10:01 [From Bactrim] trimethoprim [From Bactrim] Allergy Swelling Verified 07/21/24 10:01 zinc Allergy Unknown Verified 07/21/24 10:01 Physical Exam Vitals: Vital Signs Temp Pulse Resp BP Pulse Ox 07/21/24 10:00 82 14 114/73 100 07/21/24 09:30 87 21 118/75 95 07/21/24 09:00 97.7 F 85 16 114/75 96 07/21/24 08:30 89 20 125/74 97 07/21/24 08:00 87 16 105/61 98 07/21/24 07:30 90 20 117/73 98 07/21/24 06:45 90 117/64 96 07/21/24 06:30 92 121/72 97 07/21/24 06:15 92 131/79 97 07/21/24 06:00 95 125/85 98 07/21/24 05:45 89 131/84 98 07/21/24 05:30 93 125/92 98 07/21/24 05:15 93 130/85 97 07/21/24 05:00 93 133/85 97 07/21/24 04:45 93 132/82 93 L 07/21/24 04:30 93 18 132/82 99 07/21/24 04:15 88 15 137/89 99 07/21/24 04:00 86 16 133/88 100 07/21/24 03:45 93 18 129/91 99 07/21/24 03:30 97.2 F L 96 18 120/94 100 Intake and Output 07/20/24 07/21/24 07/21/24 22:59 06:59 14:59 Intake Total 150 Balance 150 Intake: IV 150 Sodium Chloride 0.9% 1, 150 000 ml @ 75 mls/hr IV . [id number] [facility] Rx#:[id number] Other: Weight 149.65 kg 149.65 kg PHYSICAL EXAMINATION: Patient is lying in the bed comfortably, no acute distress, awake alert and oriented.. HEENT: Normocephalic. Neck is supple. Pupils reactive. Nostrils clear. Oral cavity is moist. Neck reveals no JVD, carotid bruits, or thyromegaly. CHEST EXAMINATION: Trachea is central. Symmetrical expansion. Bibasilar diminished sounds otherwise lung [place] clear to auscultation and percussion. CARDIAC: Normal S1, S2 with no gallops. No murmurs ABDOMEN: Soft. Bowel sounds normal. No organomegaly. No abdominal bruits. Extremities: reveal no edema. No clubbing or cyanosis Neurologically awake, alert, oriented x3 with well-coordinated movements. No gross focal deficits noted Skin: No rash or skin lesions. Psychiatric: Coperative. Nonsuicidal Musculoskeletal: No joint swelling or deformity. Normal range of motion. Results CBC & Chem 7: 07/21/24 03:38 07/21/24 03:38 Labs: Abnormal Lab Results - Last 24 Hours (Table) 07/21/24 07/21/24 07/21/24 Range/Units 03:38 03:38 03:38 WBC 10.38 H (4.50-10.00) 10*3/uL RBC 5.73 H (4.40-5.60) 10*6/uL MPV 9.0 L (9.5-12.2) fL Immature Gran # 0.05 H (0.00-0.04) 10*3/uL Monocytes # 1.21 H (0.20-1.00) 10*3/uL Glucose 116 H (74-99) mg/dL POC Glucose (mg/dL) (70-110) mg/dL ALT 67 H (4-49) U/L Creatine Kinase 371 H (55-170) U/L Urine Protein (Negative) Urine Mucus (None) /hpf U Marijuana (THC) Screen (NotDetected) 07/21/24 07/21/24 07/21/24 Range/Units 03:47 03:47 08:56 WBC (4.50-10.00) 10*3/uL RBC (4.40-5.60) 10*6/uL MPV (9.5-12.2) fL Immature Gran # (0.00-0.04) 10*3/uL Monocytes # (0.20-1.00) 10*3/uL Glucose (74-99) mg/dL POC Glucose (mg/dL) 121 H (70-110) mg/dL ALT (4-49) U/L Creatine Kinase (55-170) U/L Urine Protein 1+ H (Negative) Urine Mucus Many H (None) /hpf U Marijuana (THC) Screen Detected H (NotDetected) Thrombosis Risk Factor Assmnt - DVT/VTE Prophylaxis DVT/VTE Prophylaxis: Pharmacologic Prophylaxis ordered - Choose All That Apply Any of the Below Risk Factors Present?: Yes Each Factor Represents 1 point: Medical pt on bed rest Other Risk Factors: No Other congenital or acquired thrombophilia - If yes, enter type in comment: No Thrombosis Risk Factor Assessment Total Risk Factor Score: 1 Thrombosis Risk Factor Assessment Level: Low Risk Assessment and Plan Assessment: Status epilepticus. Possible breakthrough seizures. Patient is currently on Briviact at home. Previously was on Vimpat and Keppra. Implanted of vagal nerve stimulator Chronic bronchial asthma Hypertension Obstructive sleep apnea on CPAP at home Chronic migraine headaches Alcoholic liver disease Anxiety/depression/bipolar/PTSD and schizoaffective disorder History of smoking Marijuana use Morbid obesity with a BMI 42.4 DVT prophylaxis with Lovenox subcu Plan: Patient is currently in the MICU. Continue with seizure precautions and fall precautions. Gentle IV hydration with normal saline. Start back on lisinopril we will add Norvasc and titrate dose as needed. Neurology was consulted for evaluation. Critical care team is on board. Continue to monitor closely. Discussed with family at bedside in detail. Time with Patient: Greater than 30
[2024-07-21] MEDS: ARIPiprazole 15 MG TAB PO SCH (21:02)
[2024-07-22] MEDS ORDERED: BRIVIACT 100MG TABLET PO SCH
[2024-07-22 08:00] VITALS: TEMP 97.7
[2024-07-22] MEDS: BRIVIACT 100MG TABLET PO SCH (08:30)
--- NOTE | 2024-07-22 09:03 | P.CNNES ---
History of Present Illness Consult date: 07/21/24 Requesting physician: Rick Mullins Reason for Consult: Seizure History of Present Illness: Patient is a 34-year-old male with history of seizure disorder, came to the hospital household personal assistant today at 3:25 AM for breakthrough seizure. Patient's was also present by the bedside. Patient mentions that he was at a gas station with his sister, brother and [id number]. He told his [id number] that he was not feeling well. And then he went into a seizure. He has VNS, and he swiped the magnet and he came out of it. However shortly after he had a second seizure, he tried to swipe the magnet again but did not work and he passed out. His sister had to do CPR. He did not bite his tongue or lost control of urine. When he arrived to the ER in family car, he was unresponsive. Family was doing CPR at that time. He was brought to the trauma bay 1 with continued CPR in progress, and the initial pulse check and initial vital signs revealed that patient has an organized cardiac rhythm, stable blood pressure and normal respiration. Patient does have a prolonged seizure history, and concern was that this may have been related to seizure rather than a primary cardiac event. Family states that patient had 8 seizures in the ER and he was not responding therefore he was transferred to the ICU. Patient has received full loading dose of Keppra and Vimpat. Patient has not had any further seizures. Patient states that he had couple seizures about 2 weeks ago and then prior to that he has not had any seizure for a while. Vital signs on arrival blood pressure 120/94 pulse of 96 respiration 18 saturation 100% and temperature 97.2. Blood test shows WBC 10.38, hemoglobin is normal platelets are normal. CMP shows slightly elevated ALT 67 but normal AST. CK is 371, troponin negative. UA negative urine drug screen positive for marijuana. Blood alcohol level negative. Patient states that currently he is taking Briviact 100 mg once a day. Although he is supposed to take Briviact 100 mg twice a day as per his home medication list. Patient used to be on Keppra and Vimpat as well, but it was not controlling his seizures, therefore both of them were stopped about a few months ago. At present he is only on Briviact as above. Patient states that he also takes Abilify, lisinopril and Nayzilam as needed. He follows up with Dr. Chappell. Patient has been seen by myself on 06/03/2022 at which time he was on Keppra 750 mg twice daily and the dose was increased to 1000 mg twice daily. Subsequently patient was seen by Dr. Martinez on 08/05/2023 at that time patient was on Keppra 1500 mg twice a day. Dr. Martinez also started patient on Vimpat 50 mg twice daily. He was seen by myself on 11/24/2019 for during which time he was on Keppra 1500 mg twice a day and the Vimpat was increased to 100 mg twice daily. However at this time patient is off Keppra and Vimpat. He does have VNS. Patient has history of seizure disorder since 2015. Patient denies any alcoholism or any drug use. He smokes marijuana. Patient takes Abilify for depression. Review of Systems All pertinent positive and negative review of systems mentioned HPI. 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 Date of last positivie culture/infection: 2005 MDRO Source:: leg Past Surgical History: Hernia Repair Additional Past Surgical History / Comment(s): forehead reconstruction for head lac as child, VNS implant Past Anesthesia/Blood Transfusion Reactions: No Reported Reaction Past Psychological History: Bipolar, Depression, PTSD, Schizoaffective Disorder Smoking Status: Former smoker Past Alcohol Use History: Occasional Past Drug Use History: Marijuana - Past Family History Father Family Medical History: Cancer Additional Family Medical History / Comment(s): ADOPTED-NOT TOTALLY SURE OF HHX Mother Family Medical History: Cancer Additional Family Medical History / Comment(s): ADOPTED-NOT TOTALLY SURE OF HHX Medications and Allergies Home Medications Medication Instructions Recorded Confirmed Type Loratadine [Claritin] 10 mg PO DAILY 01/28/18 07/21/24 History Albuterol Sulfate [Albuterol 2 puff INHALATION RT-Q6H PRN 08/05/23 07/21/24 History Sulfate Hfa] Cholecalciferol (Vitamin D3) 50 mcg PO DAILY 08/05/23 07/21/24 History [Vitamin D3 (50 Mcg = 2000 Iu)] Lacosamide [Vimpat] 100 mg PO BID 01/05/24 07/21/24 History Midazolam [Nayzilam] 1 spray NASAL ONCE PRN 01/05/24 07/21/24 History lisinopriL [Zestril] 5 mg PO DAILY 01/05/24 07/21/24 History Brivaracetam [Briviact] 100 mg PO BID 07/21/24 07/21/24 History Fluticasone Propion/Salmeterol 2 puff INHALATION RT-BID 07/21/24 07/21/24 History [Advair Hfa 230-21 Mcg Inhaler] amLODIPine [Norvasc] 5 mg PO DAILY 07/21/24 07/21/24 History hydroCHLOROthiazide [Hydrodiuril] 25 mg PO DAILY 07/21/24 07/21/24 History Allergies Allergy/AdvReac Type Severity Reaction Status Date / Time diphenhydramine Allergy Confusion Verified 07/21/24 10:01 [From Benadryl] Sulfa (Sulfonamide Allergy Swelling Verified 07/21/24 10:01 Antibiotics) sulfamethoxazole Allergy Swelling Verified 07/21/24 10:01 [From Bactrim] trimethoprim [From Bactrim] Allergy Swelling Verified 07/21/24 10:01 zinc Allergy Unknown Verified 07/21/24 10:01 Physical Examination - Vital Signs Vital Signs: Vital Signs Temp Pulse Resp BP Pulse Ox 07/21/24 16:00 98.9 F 84 10 L 126/83 96 07/21/24 15:00 90 22 127/77 99 07/21/24 14:00 85 19 124/80 96 07/21/24 13:00 94 20 115/69 99 07/21/24 12:03 96 07/21/24 12:00 90 13 127/70 97 07/21/24 11:30 98.1 F 82 22 130/81 96 07/21/24 11:00 81 14 111/73 97 07/21/24 10:30 85 20 113/79 97 07/21/24 10:00 82 14 114/73 100 07/21/24 09:30 87 21 118/75 95 07/21/24 09:00 97.7 F 85 16 114/75 96 07/21/24 08:30 89 20 125/74 97 07/21/24 08:00 87 16 105/61 98 07/21/24 07:30 90 20 117/73 98 07/21/24 06:45 90 117/64 96 07/21/24 06:30 92 121/72 97 07/21/24 06:15 92 131/79 97 07/21/24 06:00 95 125/85 98 07/21/24 05:45 89 131/84 98 07/21/24 05:30 93 125/92 98 07/21/24 05:15 93 130/85 97 07/21/24 05:00 93 133/85 97 07/21/24 04:45 93 132/82 93 L 07/21/24 04:30 93 18 132/82 99 07/21/24 04:15 88 15 137/89 99 07/21/24 04:00 86 16 133/88 100 07/21/24 03:45 93 18 129/91 99 07/21/24 03:30 97.2 F L 96 18 120/94 100 Intake and Output 07/21/24 07/21/24 07/21/24 06:59 14:59 22:59 Intake Total 900 350 Output Total 1000 Balance -100 350 Intake: IV 450 150 Sodium Chloride 0.9% 1, 450 150 000 ml @ 75 mls/hr IV . [id number] [facility] Rx#:[id number] Oral 450 200 Output: Urine 1000 Other: Weight 149.65 kg 149.65 kg Patient is a young male, in no distress. Patient is alert awake oriented to time place and person. Speech and language functions are normal. Patient can name and repeat very well. No aphasia or dysarthria. Attention, concentration and fund of knowledge is adequate. He has slightly slow mentation. On cranial nerve examination, pupils are equal, round and reacting to light, visual york are full on confrontation, with no neglect on double simultaneous stimulation. Extraocular muscles are intact with no nystagmus. Face is symmetric, tongue protrudes to the midline. Palatal elevation and sensation normal, hearing and shoulder shrug normal, facial sensation normal. No evidence of tongue bite luly. On muscle strength testing, there is no pronator drift and the strength is normal in arms and legs distally and proximally. Deep tendon reflexes are symmetric, however hypoactive and plantars are downgoing bilaterally. Sensory to touch is equal with no neglect on double simultaneous stimulation. Cerebellar function showed no ataxia for [id number] testing. No dysdiadochokinesia. No ataxia for [id number] testing on either side. Tone and bulk of muscles normal. Gait deferred.. On general examination, there is no carotid bruit or murmur, S1-S2 audible. Chest is clear on consultation. Abdomen is soft nontender. No organomegaly, bowel sounds present. Peripheral pulses are present. No edema. Results - Laboratory Findings CBC and BMP: 07/21/24 03:38 07/21/24 03:38 Abnormal Lab Findings: Abnormal Labs 07/21/24 07/21/24 07/21/24 03:38 03:38 03:38 WBC 10.38 H RBC 5.73 H MPV 9.0 L Immature Gran # 0.05 H Monocytes # 1.21 H Glucose 116 H POC Glucose (mg/dL) ALT 67 H Creatine Kinase 371 H Urine Protein Urine Mucus U Marijuana (THC) Screen 07/21/24 07/21/24 07/21/24 03:47 03:47 08:56 WBC RBC MPV Immature Gran # Monocytes # Glucose POC Glucose (mg/dL) 121 H ALT Creatine Kinase Urine Protein 1+ H Urine Mucus Many H U Marijuana (THC) Screen Detected H Assessment and Plan Assessment: * Seizure disorder, came with breakthrough seizure. * Depression * PTSD Plan: * Patient states that he is taking Briviact 100 mg once daily, although it is supposed to be taken 100 mg twice a day. He will resume Briviact but at higher dose of 100 mg twice daily. * Patient states that his neurologist Dr. Chappell has stopped Vimpat and Keppra a few months ago therefore we will stop it at this time. * Patient recommended to follow-up with Dr. Chappell within 1 to 2-week. * Patient informed of [place] state law of no driving unless seizure-free for 6 months, climbing ladders, operating dangerous machinery or unsupervised swimming. * Neurologically clear for discharge. Discussed with the nursing staff. * Thank you for the consult.
[2024-07-22] MEDS: hydroCHLOROthiazide 25 MG TAB PO SCH (09:23)
[2024-07-22] MEDS: amLODIPine 5 MG TAB PO SCH (09:25)
[2024-07-22 10:08] VITALS: BP 126/77; RESP 16
[2024-07-22 11:03] VITALS: PULSE 78
--- NOTE | 2024-07-22 13:03 | P.PN ---
Subjective Progress Note Date: 07/22/24 Patient is a 34-year-old male with past medical history significant for seizure disorder. Apparently, patient had seizure activity while at the [facility] gas station on [address] Family tried to activate his vagal nerve stimulator without success, and could not locate his midazolam nasal spray. Subsequently, he went unresponsive. Family started doing CPR in the car, and this was continued by hospital staff on arrival. The patient was immediately brought to trauma bay 1 with CPR in progress. Pulse was palpable on initial pulse check and patient had organized cardiac rhythm on monitor. Blood pressure was stable. Respirations were normal. Did not require intubation. Follow-up chest x-ray did not show any acute rib fractures, pneumothoraces or pleural effusions. Possible left retrocardiac opacity, atelectasis versus aspiration. Brain CT did not show any acute intracranial findings. Serum alcohol level was less than 10 on arrival. Urine toxicology is remarkable for marijuana. CBC unremarkable. CMP also unremarkable, electrolytes WDL, creatinine 0.97, glucose 116. Lactic 1.5. Troponin less than 0.012. EG: Sinus rhythm, first-degree AV block, rate 90 bpm, no acute ischemic changes. Patient currently being evaluated in the ER, is lethargic, and appears postictal. Will follow commands/answer simple questioning. No further seizure activity. No tongue biting. No vomiting. No loss of bowel or bladder control. Family are present at bedside. According to family, patient has longstanding history of seizure disorder. He does follow with a local neurologist, Dr. Chappell. Reportedly has not missed any of his antiepileptic medications. Did have 2 beers earlier in the day. Current vital signs: Temperature 97.2 F, heart rate 93 bpm, blood pressure 130/85 mmHg, even nonlabored breathing, SPO2 recorded at 97% on 2 L/min nasal cannula. On 07/22/2024, the patient is awake and alert and sitting up in a chair. No further episodes of seizure since arrival to the intensive care unit. The patient is currently on Briviact 100 mg p.o. twice a day. Awaiting a neurology consultation. Respiratory status is stable. No signs of any aspiration. Tolerating diet. Hemodynamically stable. No other significant events overnight. Blood work from today is still pending. UA was negative. Urine drug screen was positive for marijuana. Alcohol was less than 10. Objective - Vital Signs Vital signs: Vital Signs Temp 97.7 F 07/22/24 07:00 Pulse 76 07/22/24 08:00 Resp 17 07/22/24 08:00 BP 116/80 07/22/24 08:00 Pulse Ox 96 07/22/24 08:00 FiO2 Intake & Output 07/21/24 07/22/24 07/22/24 18:59 06:59 18:59 Intake Total 1600 1200 Output Total 1000 500 400 Balance 600 700 -400 Weight 149.65 kg 155.5 kg Intake: IV 750 900 Sodium Chloride 0.9% 1, 750 900 000 ml @ 75 mls/hr IV . [id number] [facility] Rx#:[id number] Oral 850 300 Output: Urine 1000 500 400 Other: # Bowel Movements 1 - Exam GENERAL EXAM: Lethargic, 34-year-old male, fully alert and awake HEAD: Normocephalic and atraumatic EYES: Normal reaction of pupils, equal size. Anicteric. No nystagmus. NOSE: Clear with pink turbinates. THROAT: No erythema or exudates. No notable tongue biting. NECK: No masses, no JVD. CHEST: No chest wall deformity. LUNGS: Equal air entry with no crackles, wheeze, rhonchi or dullness. On 2 L/min nasal cannula.. No conversational dyspnea or accessory muscle use.. CVS: S1 and S2 normal with no audible murmur, regular rhythm. No extra heart sounds ABDOMEN: No hepatosplenomegaly, active bowel sounds, no guarding or rigidity. SPINE: No scoliosis or deformity SKIN: No rashes CENTRAL NERVOUS SYSTEM: No focal deficits, tone is normal in all 4 extremities. EXTREMITIES: There is no peripheral edema, clubbing, or cyanosis. Peripheral pulses are intact. - Labs CBC & Chem 7: 07/21/24 03:38 07/21/24 03:38 Labs: Abnormal Lab Results - Last 24 Hours (Table) 07/21/24 07/21/24 Range/Units 03:38 08:56 POC Glucose (mg/dL) 121 H (70-110) mg/dL Creatine Kinase 371 H (55-170) U/L Assessment and Plan Assessment: Seizure disorder, with breakthrough seizure. The patient is currently on Briviact. Followed up by neurology, Dr. Chappell and the patient has been taken off Vimpat and Keppra. His neurologic status is back to baseline and the patient has recovered from his postictal state Brief CPR Implanted vagal nerve stimulator Hypertension Obesity, with a BMI of 42.4 kg/m Marijuana user Anxiety/depression/PTSD Chronic bronchial asthma, maintained on Advair on outpatient basis Obstructive sleep apnea and the patient has a CPAP unit at home. Plan: Continue Briviact 100 mg p.o. twice daily Add as needed Ativan for breakthrough seizures Currently seizure-free Recovered from his postictal state Brain CT did not show any acute intracranial process Serum alcohol level less than 10 Urine toxicology screen only remarkable for marijuana Continue seizure precautions Neurology is consulted Hemodynamically stable. Will asked the patient to utilize his home CPAP unit. Transfer this patient to a medical surgical floor with seizure precautions Time with Patient: Greater than 30
--- NOTE | 2024-07-27 09:31 | P.DS ---
Providers Date of admission: 07/21/24 04:39 Expected date of discharge: 07/22/24 Attending physician: Pedro Kathleen Consults: 07/21/24 04:37 Consult Physician Routine Consulting Provider: Yodit Hillman Consult Reason/Comments: Seizure Do you want consulting provider notified?: Yes 07/21/24 04:50 Consult Physician Routine Consulting Provider: Diaz Jimenez Consult Reason/Comments: Prolonged seizure, postictal phase, brief CPR Do you want consulting provider notified?: Already Contacted Primary care physician: Marycarmen Gaston [facility] Course: Final diagnosis Status epilepticus. breakthrough seizures. Patient is currently on Briviact at home. Previously was on Vimpat and Keppra. Implanted of vagal nerve stimulator Chronic bronchial asthma Hypertension Obstructive sleep apnea on CPAP at home Chronic migraine headaches Alcoholic liver disease Anxiety/depression/bipolar/PTSD and schizoaffective disorder History of smoking Marijuana use Morbid obesity with a BMI 42.4 DVT prophylaxis with Lovenox subcu Discharge disposition Patient is being discharged in a stable condition with guarded prognosis to home. Patient will follow-up with Dr. Casper Kathleen in the outpatient setting upon discharge. Patient is to continue with current medications and outpatient follow-up with neurology as scheduled. Total time taken is greater than 35 minutes. Hospital course This is a 34-year-old male who was recently admitted with concerns of breakthrough seizures being closely monitored in the ICU with neurology following closely. Patient was maintained on Vimpat although was removed per his primary neurologist outpatient and had been doing well although concerns of having breakthrough seizures. Patient reports to feeling improved and would like to go home. Patient has been cleared by neurology recommending close outpatient follow-up. Please refer to neurology and pet nutrition specialist notes for further HPI. Family at the bedside and questions and concerns were answered to the best of our ability. Currently no reports of chest pain, shortness of breath, or palpitations. Patient is afebrile. No reports of nausea or vomiting and patient is tolerating diet. Patient will be discharged home today. Guarded prognosis and high risk for readmissions given continued ongoing seizures Physical exam: Gen: This is a 34-year-old male who is awake, alert oriented x 3, well- developed, morbidly obese HEENT: Head is atraumatic, normocephalic. Pupils equal, round. Sclerae is anicteric. NECK: Supple. No JVD. No lymphadenopathy. No thyromegaly. LUNGS: Clear to auscultation. No wheezes or rhonchi. No intercostal retractions. HEART: S1, S2 are muffled ABDOMEN: Soft. Obese bowel sounds are present. No masses. No tenderness. EXTREMITIES: No pedal edema. No calf tenderness. NEUROLOGICAL: Patient is awake, alert and oriented x3. Cranial nerves 2 through 12 are grossly intact. Please refer to medication reconciliation sheet for a list of medications. The impression and plan of care has been dictated by Crystal Guevara, Nurse Practitioner as directed. Dr. Mima MD I have performed a history and examination and MDM of this patient, discussed the same with the dictator, and agree with the dictator's assessment and plan as written ,documented as a scribe. Based on total visit time, I have performed more than 50% of the visit. Patient Condition at Discharge: Fair Plan - Discharge Summary Discharge Rx Participant: Yes New Discharge Prescriptions: New ARIPiprazole [Abilify] 15 mg PO HS #30 tab Acetaminophen Tab [Tylenol] 650 mg PO Q6HR PRN tab PRN Reason: Mild Pain Or Fever > 100.5 Continue Loratadine [Claritin] 10 mg PO DAILY Albuterol Sulfate [Albuterol Sulfate Hfa] 2 puff INHALATION RT-Q6H PRN PRN Reason: Shortness Of Breath hydroCHLOROthiazide [Hydrodiuril] 25 mg PO DAILY Cholecalciferol (Vitamin D3) [Vitamin D3 (50 Mcg = 2000 Iu)] 50 mcg PO DAILY lisinopriL [Zestril] 5 mg PO DAILY Midazolam [Nayzilam] 1 spray NASAL ONCE PRN PRN Reason: SEIZURE LASTING >3 MIN amLODIPine [Norvasc] 5 mg PO DAILY Fluticasone Propion/Salmeterol [Advair Hfa 230-21 Mcg Inhaler] 2 puff INHALATION RT-BID Brivaracetam [Briviact] 100 mg PO BID 30 Days #60 tab Discontinued Lacosamide [Vimpat] 100 mg PO BID Discharge Medication List Loratadine [Claritin] 10 mg PO DAILY 01/28/18 [History] Albuterol Sulfate [Albuterol Sulfate Hfa] 2 puff INHALATION RT-Q6H PRN 08/05/23 [History] Cholecalciferol (Vitamin D3) [Vitamin D3 (50 Mcg = 2000 Iu)] 50 mcg PO DAILY 08/05/23 [History] Midazolam [Nayzilam] 1 spray NASAL ONCE PRN 01/05/24 [History] lisinopriL [Zestril] 5 mg PO DAILY 01/05/24 [History] Fluticasone Propion/Salmeterol [Advair Hfa 230-21 Mcg Inhaler] 2 puff INHALATION RT-BID 07/21/24 [History] amLODIPine [Norvasc] 5 mg PO DAILY 07/21/24 [History] hydroCHLOROthiazide [Hydrodiuril] 25 mg PO DAILY 07/21/24 [History] ARIPiprazole [Abilify] 15 mg PO HS #30 tab 07/22/24 [Rx] Acetaminophen Tab [Tylenol] 650 mg PO Q6HR PRN tab 07/22/24 [Rx] Brivaracetam [Briviact] 100 mg PO BID 30 Days #60 tab 07/22/24 [Rx] Follow up Appointment(s)/Referral(s): Marycarmen Gaston MD [Primary Care Provider] - 1-2 days Vivian Chappell MD [REFERRING] - 1 Week Activity/Diet/Wound Care/Special Instructions: Activity limited until follow-up Follow-up with primary neurologist outpatient in 1 week Follow-up with primary care provider on discharge Discharge Disposition: HOME SELF-CARE
== END 2024-07-22 12:45 | disposition home or self-care (01) | DRG 53 ==
LOC: EC 03:25 → 2SICU 04:39 → OBSVTOIN 04:40 → 2SICU 07:41
PROVIDERS: ADMIT Hospitalist; ATTEND Hospitalist
DX: G40.901 Epilepsy, unspecified, not intractable, with status epilepticus (principal); G43.909 Migraine, unspecified, not intractable, without status migrainosus; F43.10 Post-traumatic stress disorder, unspecified; G47.33 Obstructive sleep apnea (adult) (pediatric); I10 Essential (primary) hypertension; I44.0 Atrioventricular block, first degree; E66.01 Morbid (severe) obesity due to excess calories; F25.9 Schizoaffective disorder, unspecified; F32.A Depression, unspecified; F41.9 Anxiety disorder, unspecified; J45.909 Unspecified asthma, uncomplicated; K70.9 Alcoholic liver disease, unspecified; Z68.41 Body mass index [BMI] 40.0-44.9, adult; Z79.899 Other long term (current) drug therapy; Z87.891 Personal history of nicotine dependence; Z96.82 Presence of neurostimulator; Z86.14 Personal history of Methicillin resistant Staphylococcus aureus infection
CPT/HCPCS: 36415; 70450; 71045; 80053; 80306; 80320; 81001; 82550; 83605; 83735; 84484; 85025; 85610; 85730; 92950; 93005; 96361; 96365; 99291

== ENCOUNTER 2024-08-25 23:41 | Emergency (ER) | payer OTHER ==
[2024-08-25 23:48] VITALS: TEMP 98.8
[2024-08-25 23:49] LABS: Glucose,Whole Blood 98 mg/dL (70-110)
[2024-08-25] MEDS: SODIUM CHLORIDE 0.9% 1,000 ML IV STA (23:55)
[2024-08-26] MEDS: levETIRAcetam IV 1,500 MG in SODIUM CHLORIDE 0.9% 250 ML IVPB ONE (00:01)
--- NOTE | 2024-08-26 00:08 | ED ---
General Adult HPI - General Chief complaint: Seizure Stated complaint: seizure Time Seen by Provider: 08/25/24 23:48 Source: patient, EMS Mode of arrival: EMS Limitations: no limitations - History of Present Illness Initial comments: Patient is a 34-year-old gentleman past medical history of seizure disorder/epilepsy presenting today for multiple seizures. History is limited by postictal state. EMS report that patient had 3 seizures prior to the arrival. Patient's family administered multiple doses of intranasal Versed without seizures. On EMS arrival patient was not seizing however began having a seizure in front of them. Patient's seizures consist of nystagmus. Patient was given 5 mg IM Versed with brief stop and seizing an additional 5 mg IM Versed. Patient had no further seizure activity and was answering to his name and route to the hospital. Blood glucose was 120 per EMS. Patient denies any headache or chest pain at this time. States he has right sided weakness after each seizure. No history of strokes. - Related Data Home Medications Medication Instructions Recorded Confirmed Loratadine [Claritin] 10 mg PO DAILY 01/28/18 08/09/24 Albuterol Sulfate [Albuterol 2 puff INHALATION RT-Q6H PRN 08/05/23 08/09/24 Sulfate Hfa] Cholecalciferol (Vitamin D3) 50 mcg PO DAILY 08/05/23 08/09/24 [Vitamin D3 (50 Mcg = 2000 Iu)] Midazolam [Nayzilam] 1 spray NASAL ONCE PRN 01/05/24 08/09/24 lisinopriL [Zestril] 5 mg PO DAILY 01/05/24 08/09/24 Fluticasone Propion/Salmeterol 2 puff INHALATION RT-BID 07/21/24 08/09/24 [Advair Hfa 230-21 Mcg Inhaler] amLODIPine [Norvasc] 5 mg PO DAILY 07/21/24 08/09/24 hydroCHLOROthiazide [Hydrodiuril] 25 mg PO DAILY 07/21/24 08/09/24 Previous Rx's Medication Instructions Recorded ARIPiprazole [Abilify] 15 mg PO HS #30 tab 07/22/24 Acetaminophen Tab [Tylenol] 650 mg PO Q6HR PRN tab 07/22/24 Brivaracetam [Briviact] 100 mg PO BID 30 Days #60 tab 07/22/24 Allergies Allergy/AdvReac Type Severity Reaction Status Date / Time diphenhydramine Allergy Confusion Verified 08/25/24 23:48 [From Benadryl] Sulfa (Sulfonamide Allergy Swelling Verified 08/25/24 23:48 Antibiotics) sulfamethoxazole Allergy Swelling Verified 08/25/24 23:48 [From Bactrim] trimethoprim [From Bactrim] Allergy Swelling Verified 08/25/24 23:48 zinc Allergy Unknown Verified 08/25/24 23:48 Review of Systems ROS Statement: Those systems with pertinent positive or pertinent negative responses have been documented in the HPI. ROS Other: All systems not noted in ROS Statement are negative. Past Medical History Past Medical History: Asthma, Liver Disease, Seizure Disorder Additional Past Medical History / Comment(s): PTSD, chronic migraines, HX SEIZURES-LAST ONE 05/30/22 (PT STATES SEIZURES ARE STRESS INDUCED), liver diseas e d/t alcohol History of Any Multi-Drug Resistant Organisms: MRSA Date of last positivie culture/infection: 2005 MDRO Source:: leg Past Surgical History: Hernia Repair Additional Past Surgical History / Comment(s): forehead reconstruction for head lac as child, VNS implant Past Anesthesia/Blood Transfusion Reactions: No Reported Reaction Past Psychological History: Bipolar, Depression, PTSD, Schizoaffective Disorder Smoking Status: Former smoker Past Alcohol Use History: Occasional Past Drug Use History: Marijuana - Past Family History Father Family Medical History: Cancer Additional Family Medical History / Comment(s): ADOPTED-NOT TOTALLY SURE OF HHX Mother Family Medical History: Cancer Additional Family Medical History / Comment(s): ADOPTED-NOT TOTALLY SURE OF HHX General Exam - General Exam Comments Initial Comments: PE: CONSTITUTIONAL: [no apparent distress, well appearing, nontoxic, drowsy opens eyes to loud voice] SKIN: [warm, dry, no jaundice, hives or petechiae] EYES:[ pupils are equally round, extraocular movements intact without nystagmus, clear conjunctiva, non-icteric sclera] HENT: [normocephalic, atraumatic, moist mucus membranes, oropharynx clear without exudates] NECK: , [Full range of motion, normal appearance] PULMONARY: [clear to auscultation without wheezes, rhonchi, or rales, normal excursion, no accessory muscle use and no stridor] CARDIOVASCULAR:[ regular rate, rhythm, normal S1 and S2. No appreciated murmurs, rubs or gallops. Strong radial pulses with intact distal perfusion. No lower extremity edema] GASTROINTESTINAL: [soft, active bowel sounds throughout, non-tender, non- distended, no palpable masses, no rebound or guarding. No hepatosplenomegaly] GENITOURINARY: MUSCULOSKELETAL: [Extremities have no gross deformity, no edema, redness, or swelling. No calf swelling ] NEUROLOGIC: [_a/o x 3, GCS 14, normal mentation and speech. States unable to move RUE and RLE though good tone when I attempt to lift and move these extremities, no additional focal neurologic deficits] PSYCHIATRIC:[ _normal mood and affect, thought process is clear, overall linear though pt is somewhat drowsy] Limitations: no limitations Course Vital Signs 08/25/24 08/26/24 08/26/24 23:43 00:10 01:23 Temperature 98.8 F Pulse Rate 94 93 89 Respiratory 18 20 20 Rate Blood Pressure 130/95 120/74 123/86 O2 Sat by Pulse 96 95 95 Oximetry 08/26/24 02:00 Temperature 98.8 F Pulse Rate 86 Respiratory 18 Rate Blood Pressure 122/74 O2 Sat by Pulse 95 Oximetry EKG Findings - EKG Comments: EKG Findings:: Sinus rhythm, rate 95 bpm intervals within except limits, normal axis, no significant ST elevations or depressions, no arrhythmia Medical Decision Making - Medical Decision Making Was pt. sent in by a medical professional or institution ([facility] Chapman, DEPUTY COUNTY CLERK, urgent care, hospital, or prison...) When possible be specific @ -[No] Did you speak to anyone other than the patient for history (EMS, parent, family, police, friend...)? What history was obtained from this source @ -[No] Did you review nursing and triage notes (agree or disagree)? Why? @ -[I reviewed and agree with nursing and triage notes] Were old charts reviewed (outside hosp., previous admission, EMS record, old EKG, old radiological studies, urgent care reports/EKG's, prison records)? Report findings @ -[Medical records reviewed]-patient was in this emergency department, seen by myself on 08/09 S25, it appears patient left AMA however he was seen by neurology prior to discharge Differential Diagnosis (chest pain, altered mental status, abdominal pain women, abdominal pain men, vaginal bleeding, weakness, fever, dyspnea, syncope, headache, dizziness, GI bleed, back pain, seizure, CVA, palpatations, mental health, musculoskeletal)? @Differential Seizure: Recurrent seizure disorder, febrile seizure, alcohol withdrawal, stimulants, meningitis, encephalitis, intercranial hemorrhage, intracranial tumor, stroke, eclampsia, thyrotoxicosis, hypocalcemia, hyponatremia, hypernatremia, hypomagnesemia, psychogenic, this is not meant to be an all-inclusive list. EKG interpreted by me (3pts min.). @ -[As above] X-rays interpreted by me (1pt min.). @ -[None done] CT interpreted by me (1pt min.). @ -[None done] U/S interpreted by me (1pt. min.). @ -[None done] What testing was considered but not performed or refused? (CT, X-rays, U/S, labs)? Why? @ -[None] What meds were considered but not given or refused? Why? @ -[None] Did you discuss the management of the patient with other professionals (professionals i.e. , PA, DEPUTY COUNTY CLERK, lab, RT, psych nurse, older adult social work specialist, hearing aid repairer, teacher, soil science technical officer, bilingual patient support caseworker)? Give summary @ -[No] Was smoking cessation discussed for >3mins.? @ -[No] Was critical care preformed (if so, how long)? @ -[No] Were there social determinants of health that impacted care today? How? (Homelessness, low income, unemployed, alcoholism, drug addiction, transportation, low edu. Level, literacy, decrease access to med. care, care home, rehab)? @ -[No] Was there de-escalation of care discussed even if they declined (Discuss DNR or withdrawal of care, Hospice)? @ -[No] What co-morbidities impacted this encounter? (DM, HTN, Smoking, COPD, CAD, Cancer, CVA, ARF, Chemo, Hep., AIDS, mental health diagnosis, sleep apnea, morbid obesity)? @Seizure disorder, depression Was patient admitted / discharged? Hospital course, mention meds given and route, prescriptions, significant lab abnormalities, going to OR and other pertinent info. @ -[hospital course] this is a pleasant 34-year-old man presenting today for breakthrough seizures. On my assessment patient awakens to loud voice, he is somewhat drowsy though does follow commands. He states he cannot move his right upper extremity or right lower extremity because he has paralysis of the side after each seizure. No history of strokes. This is not abnormal for him. Denies missed doses of medications or additional complaints. Vital signs are stable on arrival. Patient be given Keppra load, basic labs will be obtained, as well as CT brain. Stroke alert was not called due to seizure waitstaff captain and pt stating this is a known complication of his seizures. No additional focal neurologic deficits. Suspect Ladarius's paralysis. On reassessment patient sitting comfortably. He does awaken to voice, and has returned to baseline. Moves all 4 extremities without difficulty. I did discuss with the patient admitting him for observation to see neurology in case of any medication adjustments that may be helpful to stop his seizures. Patient states that he wants to be discharged. He wants to go home and take care of his dog. His niece at bedside suspects patient seizures today were induced by stress from his . Pt will follow up with his neurologist outpatient. Undiagnosed new problem with uncertain prognosis? @ -[No] Drug Therapy requiring intensive monitoring for toxicity (Heparin, Nitro, Insulin, Cardizem)? @ -[No] Were any procedures done? @ -[No] Diagnosis/symptom? @ -Breakthrough seizures Acute, or Chronic, or Acute on Chronic? @ -Acute Uncomplicated (without systemic symptoms) or Complicated (systemic symptoms)? @Complicated Side effects of treatment? @ -[No] Exacerbation, Progression, or Severe Exacerbation? @ -[No] Poses a threat to life or bodily function? How? (Chest pain, [place], [place], pneumonia, PE, COPD, DKA, ARF, appy, cholecystitis, CVA, Diverticulitis, Homicidal, Suicidal, threat to staff... and all critical care pts) @ -[No] not at time of discharge - Lab Data Result diagrams: 08/25/24 23:49 08/25/24 23:49 Lab Results 08/25/24 08/25/24 08/25/24 Range/Units 23:48 23:49 23:49 WBC 7.92 (4.50-10.00) 10*3/uL RBC 5.32 (4.40-5.60) 10*6/uL Hgb 15.2 (13.0-17.0) g/dL Hct 44.9 (39.6-50.0) % MCV 84.4 (80.0-97.0) fL MCH 28.6 (27.0-32.0) pg MCHC 33.9 (32.0-37.0) g/dL Plt Count 262 (140-440) 10*3/uL MPV 10.4 (9.5-12.2) fL Immature Gran % (Auto) 0.4 % Neutrophils % 57.0 % Lymphocytes % 29.2 % Monocytes % 10.9 % Eosinophils % 1.9 % Basophils % 0.6 % Immature Gran # 0.03 (0.00-0.04) 10*3/uL Neutrophils # 4.52 (1.80-7.70) 10*3/uL Lymphocytes # 2.31 (0.90-5.00) 10*3/uL Monocytes # 0.86 (0.20-1.00) 10*3/uL Eosinophils # 0.15 (0.04-0.35) 10*3/uL Basophils # 0.05 (0.00-0.10) 10*3/uL Sodium 139 (137-145) mmol/L Potassium 4.7 (3.5-5.1) mmol/L Chloride 105 (98-107) mmol/L Carbon Dioxide 24 (22-30) mmol/L Anion Gap 10 mmol/L BUN 15 (9-20) mg/dL Creatinine 1.05 (0.66-1.25) mg/dL Est GFR (CKD-EPI)AfAm >90 (>60 ml/min/1.73 sqM) Est GFR (CKD-EPI)NonAf >90 (>60 ml/min/1.73 sqM) Glucose 90 (74-99) mg/dL POC Glucose (mg/dL) 98 (70-110) mg/dL POC Glu Nursing Faculty ID Eduardo Kelly Calcium 9.5 (8.4-10.2) mg/dL Total Bilirubin 1.0 (0.2-1.3) mg/dL AST 59 (17-59) U/L ALT 68 H (4-49) U/L Alkaline Phosphatase 63 (38-126) U/L Total Protein 7.5 (6.3-8.2) g/dL Albumin 4.7 (3.5-5.0) g/dL Disposition Clinical Impression: Breakthrough seizure Disposition: HOME SELF-CARE Condition: Good Instructions (If sedation given, give patient instructions): Seizure/Epilepsy Discharge Instructions & Follow-Up Additional Instructions: Every disease is a spectrum and a small chance still exists that a serious condi tion could develop, for this reason, please monitor yourself closely for new, changing or worsening symptoms, recurrent seizure, severe headache, changes in the type seizures you have, symptoms that persist beyond 48 hours, fever, inability to tolerate/keep down fluids or your medications, inability to follow up with outpatient providers as instructed and should you experience these symptoms or should you have any further concerns for your wellbeing please return to the ED or call 911 immediately. [facility] law states that you are unable to drive or operate heavy machinery for 6 months after seizure or syncopal event. Please follow-up with your PCP for clearance. PLEASE call your primary care physician as soon as possible to arrange / discuss plan for followup appointment. Appointment in the next 1-3 days is strongly encouraged if possible. PLEASE let us know here before you leave if there is anything further we can do to be of any assistance. Take care and feel Better! Is patient prescribed a controlled substance at d/c from ED?: No Referrals: Marycarmen Gaston MD [Primary Care Provider] - 1-2 days
[2024-08-26] MEDS: levETIRAcetam IV 500 MG/5 ML VIAL IVP ONE (00:11)
[2024-08-26] MEDS: levETIRAcetam IV 3,000 MG in SODIUM CHLORIDE 0.9% 250 ML IVPB ONE (00:18)
[2024-08-26 00:26] LABS: ALT 68 U/L (4-49); AST 59 U/L (17-59); African American GFR (CKD) >90 (>60 ml/min/1.73 sqM); Albumin 4.7 g/dL (3.5-5.0); Alkaline Phosphatase 63 U/L (38-126); Anion Gap 10 mmol/L; Blood Urea Nitrogen 15 mg/dL (9-20); Calcium 9.5 mg/dL (8.4-10.2); Carbon Dioxide 24 mmol/L (22-30); Chloride 105 mmol/L (98-107); Glucose 90 mg/dL (74-99); Non-African American GFR(CKD) >90 (>60 ml/min/1.73 sqM); Sodium 139 mmol/L (137-145); Total Protein 7.5 g/dL (6.3-8.2)
[2024-08-26 00:37] LABS: Potassium 4.7 mmol/L (3.5-5.1)
--- NOTE | 2024-08-26 00:37 | CT ---
EXAM: CT Head Without Intravenous Contrast CLINICAL HISTORY: ITS.REASON CT Reason: recurrent seizure, right side weakness TECHNIQUE: Axial computed tomography images of the head/brain without intravenous contrast. CTDI is 49.2 mGy and DLP is 1137.4 mGy-cm. This CT exam was performed using one or more of the following dose reduction techniques: automated exposure control, adjustment of the mA and/or kV according to patient size, and/or use of iterative reconstruction technique. COMPARISON: No relevant prior studies available. FINDINGS: No acute intracranial hemorrhage. No midline shift or mass effect. The territorial benjamin-white matter differentiation is maintained throughout. The ventricles and sulci are commensurate with age. The visualized orbits appear grossly unremarkable. The calvarium is intact. The visualized paranasal sinuses and mastoid air cells are grossly clear. IMPRESSION: No acute intracranial hemorrhage, midline shift, or mass effect.
[2024-08-26 01:23] LABS: Basophils # (A) 0.05 10*3/uL (0.00-0.10); Basophils % (A) 0.6 %; Eosinophils # (A) 0.15 10*3/uL (0.04-0.35); Eosinophils % (A) 1.9 %; HCT 44.9 % (39.6-50.0); HGB 15.2 g/dL (13.0-17.0); Lymphocytes # (A) 2.31 10*3/uL (0.90-5.00); Lymphocytes % (A) 29.2 %; MCH 28.6 pg (27.0-32.0); MCHC 33.9 g/dL (32.0-37.0); MCV 84.4 fL (80.0-97.0); Mean Platelet Volume 10.4 fL (9.5-12.2); Monocytes # (A) 0.86 10*3/uL (0.20-1.00); Monocytes % (A) 10.9 %; Neutrophils # (A) 4.52 10*3/uL (1.80-7.70); Platelet Count 262 10*3/uL (140-440); RBC 5.32 10*6/uL (4.40-5.60); RDW 12.9 % (11.5-14.5); WBC 7.92 10*3/uL (4.50-10.00)
[2024-08-26 02:53] VITALS: RESP 18
[2024-08-26 03:06] VITALS: BP 131/70; PULSE 84
== END 2024-08-26 03:13 | disposition home or self-care (01) ==
LOC: EC 23:41
DX: G40.909 Epilepsy, unspecified, not intractable, without status epilepticus (principal); F32.A Depression, unspecified; Z87.891 Personal history of nicotine dependence; Z88.1 Allergy status to other antibiotic agents; Z88.2 Allergy status to sulfonamides; Z88.8 Allergy status to other drugs, medicaments and biological substances
CPT/HCPCS: 36415; 70450; 80053; 85025; 93005; 96361; 96365; 96375; 99285

== ENCOUNTER 2024-09-10 23:27 | Emergency (ER) | payer OTHER ==
[2024-09-10 23:40] VITALS: RESP 20
[2024-09-11 00:08] LABS: Basophils # (A) 0.04 10*3/uL (0.00-0.10); Basophils % (A) 0.6 %; Eosinophils # (A) 0.18 10*3/uL (0.04-0.35); Eosinophils % (A) 2.5 %; HCT 42.0 % (39.6-50.0); HGB 14.6 g/dL (13.0-17.0); Lymphocytes # (A) 2.54 10*3/uL (0.90-5.00); Lymphocytes % (A) 35.9 %; MCH 29.3 pg (27.0-32.0); MCHC 34.8 g/dL (32.0-37.0); MCV 84.3 fL (80.0-97.0); Monocytes # (A) 0.61 10*3/uL (0.20-1.00); Monocytes % (A) 8.6 %; Neutrophils # (A) 3.67 10*3/uL (1.80-7.70); Neutrophils % (A) 52.0 %; Platelet Count 254 10*3/uL (140-440); RBC 4.98 10*6/uL (4.40-5.60); RDW 12.7 % (11.5-14.5); WBC 7.07 10*3/uL (4.50-10.00)
[2024-09-11 00:21] LABS: ALT 59 U/L (4-49); AST 36 U/L (17-59); African American GFR (CKD) >90 (>60 ml/min/1.73 sqM); Albumin 4.2 g/dL (3.5-5.0); Alkaline Phosphatase 53 U/L (38-126); Anion Gap 11 mmol/L; Blood Urea Nitrogen 11 mg/dL (9-20); Calcium 9.4 mg/dL (8.4-10.2); Carbon Dioxide 25 mmol/L (22-30); Chloride 102 mmol/L (98-107); Glucose 114 mg/dL (74-99); Magnesium 2.0 mg/dL (1.6-2.3); Non-African American GFR(CKD) >90 (>60 ml/min/1.73 sqM); Potassium 3.8 mmol/L (3.5-5.1); Sodium 138 mmol/L (137-145); Total Protein 6.6 g/dL (6.3-8.2)
--- NOTE | 2024-09-11 00:50 | ED ---
Seizure HPI - General Chief Complaint: Seizure Stated Complaint: Seizure Time Seen by Provider: 09/10/24 23:46 Source: EMS Mode of arrival: EMS Limitations: no limitations - History of Present Illness Initial Comments: This patient is a 34-year-old man with history of seizure disorder and also with vagal nerve stimulator. He arrives by ambulance to have evaluation after seizure that lasted longer than normal and did require use of his vagus nerve stimulator. Additional history from the patient's family. The patient reportedly has relatively frequent seizures. His last previous seizure was approximately 24 hours earlier. The last prolonged seizure like this occurred 2 weeks ago. The patient follows with Dr. Chappell, with last appointment being in August. The patient becoming more alert states that he did not have a fall or any associated injury. He denies pain. He does request water. Denies other complaints MD Complaint: seizure -: minutes(s) Description of Episode: loss of consciousness, tonic-clonic movement, post-event confusion -: minutes(s) Witnessed: yes - by bystander Trauma: No Seizure History: known seizure disorder Place: home Possible Precipitating Event: lack of sleep Associated Symptoms: denies other symptoms Treatments Prior to Arrival: other - Related Data Home Medications Medication Instructions Recorded Confirmed Loratadine [Claritin] 10 mg PO DAILY 01/28/18 08/09/24 Albuterol Sulfate [Albuterol 2 puff INHALATION RT-Q6H PRN 08/05/23 08/09/24 Sulfate Hfa] Cholecalciferol (Vitamin D3) 50 mcg PO DAILY 08/05/23 08/09/24 [Vitamin D3 (50 Mcg = 2000 Iu)] Midazolam [Nayzilam] 1 spray NASAL ONCE PRN 01/05/24 08/09/24 lisinopriL [Zestril] 5 mg PO DAILY 01/05/24 08/09/24 Fluticasone Propion/Salmeterol 2 puff INHALATION RT-BID 07/21/24 08/09/24 [Advair Hfa 230-21 Mcg Inhaler] amLODIPine [Norvasc] 5 mg PO DAILY 07/21/24 08/09/24 hydroCHLOROthiazide [Hydrodiuril] 25 mg PO DAILY 07/21/24 08/09/24 Previous Rx's Medication Instructions Recorded ARIPiprazole [Abilify] 15 mg PO HS #30 tab 07/22/24 Acetaminophen Tab [Tylenol] 650 mg PO Q6HR PRN tab 07/22/24 Brivaracetam [Briviact] 100 mg PO BID 30 Days #60 tab 07/22/24 Allergies Allergy/AdvReac Type Severity Reaction Status Date / Time diphenhydramine Allergy Confusion Verified 08/25/24 23:48 [From Benadryl] Sulfa (Sulfonamide Allergy Swelling Verified 08/25/24 23:48 Antibiotics) sulfamethoxazole Allergy Swelling Verified 08/25/24 23:48 [From Bactrim] trimethoprim [From Bactrim] Allergy Swelling Verified 08/25/24 23:48 zinc Allergy Unknown Verified 08/25/24 23:48 Review of Systems ROS Statement: Those systems with pertinent positive or pertinent negative responses have been documented in the HPI. ROS Other: All systems not noted in ROS Statement are negative. Constitutional: Denies: fever, chills Eyes: Denies: vision change Respiratory: Denies: cough, dyspnea Cardiovascular: Denies: chest pain, palpitations, syncope Gastrointestinal: Denies: abdominal pain, vomiting, diarrhea Genitourinary: Denies: dysuria, hematuria Musculoskeletal: Denies: back pain Skin: Denies: rash Neurological: Reports: other (Seizure). Denies: headache, weakness, numbness, confusion 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 Date of last positivie culture/infection: 2005 MDRO Source:: leg Past Surgical History: Hernia Repair Additional Past Surgical History / Comment(s): forehead reconstruction for head lac as child, VNS implant Past Anesthesia/Blood Transfusion Reactions: No Reported Reaction Past Psychological History: Bipolar, Depression, PTSD, Schizoaffective Disorder Smoking Status: Former smoker Past Alcohol Use History: Occasional Past Drug Use History: Marijuana - Past Family History Father Family Medical History: Cancer Additional Family Medical History / Comment(s): ADOPTED-NOT TOTALLY SURE OF HHX Mother Family Medical History: Cancer Additional Family Medical History / Comment(s): ADOPTED-NOT TOTALLY SURE OF HHX General Exam Limitations: no limitations General appearance: alert, in no apparent distress Head exam: Present: atraumatic, normocephalic Eye exam: Present: normal appearance, PERRL, EOMI. Absent: scleral icterus, conjunctival injection, nystagmus ENT exam: Present: normal oropharynx Neck exam: Present: normal inspection, full ROM. Absent: tenderness Respiratory exam: Present: normal lung sounds bilaterally. Absent: respiratory distress, wheezes, rales, rhonchi, stridor, accessory muscle use Cardiovascular Exam: Present: regular rate, normal rhythm, normal heart sounds. Absent: systolic murmur, diastolic murmur, rubs, gallop GI/Abdominal exam: Present: soft. Absent: distended, tenderness, guarding, rebound, rigid, mass Extremities exam: Present: normal inspection, normal capillary refill. Absent: pedal edema, calf tenderness Back exam: Present: normal inspection. Absent: CVA tenderness (R), CVA tenderness (L) Neurological exam: Present: alert, oriented X3, CN II-XII intact. Absent: motor sensory deficit Skin exam: Present: warm, dry, intact, normal color. Absent: rash Course Vital Signs 09/10/24 09/11/24 23:28 01:14 Temperature 97.7 F 98.5 F Pulse Rate 82 96 Respiratory 20 20 Rate Blood Pressure 122/81 133/86 O2 Sat by Pulse 97 100 Oximetry Medical Decision Making - Lab Data Result diagrams: 09/10/24 23:55 09/10/24 23:55 Lab Results 09/10/24 09/10/24 Range/Units 23:55 23:55 WBC 7.07 (4.50-10.00) 10*3/uL RBC 4.98 (4.40-5.60) 10*6/uL Hgb 14.6 (13.0-17.0) g/dL Hct 42.0 (39.6-50.0) % MCV 84.3 (80.0-97.0) fL MCH 29.3 (27.0-32.0) pg MCHC 34.8 (32.0-37.0) g/dL Plt Count 254 (140-440) 10*3/uL MPV 9.7 (9.5-12.2) fL Immature Gran % (Auto) 0.4 % Neutrophils % 52.0 % Lymphocytes % 35.9 % Monocytes % 8.6 % Eosinophils % 2.5 % Basophils % 0.6 % Immature Gran # 0.03 (0.00-0.04) 10*3/uL Neutrophils # 3.67 (1.80-7.70) 10*3/uL Lymphocytes # 2.54 (0.90-5.00) 10*3/uL Monocytes # 0.61 (0.20-1.00) 10*3/uL Eosinophils # 0.18 (0.04-0.35) 10*3/uL Basophils # 0.04 (0.00-0.10) 10*3/uL Sodium 138 (137-145) mmol/L Potassium 3.8 (3.5-5.1) mmol/L Chloride 102 (98-107) mmol/L Carbon Dioxide 25 (22-30) mmol/L Anion Gap 11 mmol/L BUN 11 (9-20) mg/dL Creatinine 0.73 (0.66-1.25) mg/dL Est GFR (CKD-EPI)AfAm >90 (>60 ml/min/1.73 sqM) Est GFR (CKD-EPI)NonAf >90 (>60 ml/min/1.73 sqM) Glucose 114 H (74-99) mg/dL Calcium 9.4 (8.4-10.2) mg/dL Magnesium 2.0 (1.6-2.3) mg/dL Total Bilirubin 0.3 (0.2-1.3) mg/dL AST 36 (17-59) U/L ALT 59 H (4-49) U/L Alkaline Phosphatase 53 (38-126) U/L Total Protein 6.6 (6.3-8.2) g/dL Albumin 4.2 (3.5-5.0) g/dL - EKG Data -: EKG Interpreted by In EKG shows normal: sinus rhythm (With first-degree AV block, rate 78), axis (Normal), intervals (TN interval 256 ms, prolonged consistent with first-degree AV block. QRS duration 110 ms, QTc 410 ms, both normal), QRS complexes (Normal), ST-T waves (Normal) Rate: normal Disposition Clinical Impression: Recurrent seizures Disposition: HOME SELF-CARE Condition: Good Instructions (If sedation given, give patient instructions): Recurrent Seizures in Adults (ED) Is patient prescribed a controlled substance at d/c from ED?: No Referrals: Marycarmen Gaston MD [Primary Care Provider] - 1-2 days Vivian Chappell MD [REFERRING] - 1-2 days
[2024-09-11 01:17] VITALS: BP 133/86; PULSE 96; TEMP 98.5
== END 2024-09-11 01:38 | disposition home or self-care (01) ==
LOC: EC 23:27
DX: G40.909 Epilepsy, unspecified, not intractable, without status epilepticus (principal); Z87.891 Personal history of nicotine dependence; Z88.1 Allergy status to other antibiotic agents; Z88.2 Allergy status to sulfonamides; Z88.8 Allergy status to other drugs, medicaments and biological substances
CPT/HCPCS: 36415; 80053; 83735; 85025; 93005; 99284

== ENCOUNTER 2024-09-20 01:56 | Emergency (ER) | payer OTHER ==
--- NOTE | 2024-09-20 02:03 | ED ---
Seizure HPI - General Chief Complaint: Seizure Stated Complaint: ETOH Time Seen by Provider: 09/20/24 01:59 Source: EMS, RN notes reviewed, old records reviewed Mode of arrival: EMS - History of Present Illness Initial Comments: This is a 34-year-old male to ER for evaluation of seizure known seizure history presenting a prolonged postictal state. Patient well-known to this ER for similar complaints MD Complaint: seizure -: unknown Description of Episode: loss of consciousness, tonic-clonic movement -: minutes(s) Witnessed: yes - by bystander Trauma: Yes Seizure History: known seizure disorder Place: home Possible Precipitating Event: none Associated Symptoms: denies other symptoms Treatments Prior to Arrival: none - Related Data Home Medications Medication Instructions Recorded Confirmed Loratadine [Claritin] 10 mg PO DAILY 01/28/18 08/09/24 Albuterol Sulfate [Albuterol 2 puff INHALATION RT-Q6H PRN 08/05/23 08/09/24 Sulfate Hfa] Cholecalciferol (Vitamin D3) 50 mcg PO DAILY 08/05/23 08/09/24 [Vitamin D3 (50 Mcg = 2000 Iu)] Midazolam [Nayzilam] 1 spray NASAL ONCE PRN 01/05/24 08/09/24 lisinopriL [Zestril] 5 mg PO DAILY 01/05/24 08/09/24 Fluticasone Propion/Salmeterol 2 puff INHALATION RT-BID 07/21/24 08/09/24 [Advair Hfa 230-21 Mcg Inhaler] amLODIPine [Norvasc] 5 mg PO DAILY 07/21/24 08/09/24 hydroCHLOROthiazide [Hydrodiuril] 25 mg PO DAILY 07/21/24 08/09/24 Previous Rx's Medication Instructions Recorded ARIPiprazole [Abilify] 15 mg PO HS #30 tab 07/22/24 Acetaminophen Tab [Tylenol] 650 mg PO Q6HR PRN tab 07/22/24 Brivaracetam [Briviact] 100 mg PO BID 30 Days #60 tab 07/22/24 Allergies Allergy/AdvReac Type Severity Reaction Status Date / Time diphenhydramine Allergy Confusion Verified 08/25/24 23:48 [From Benadryl] Sulfa (Sulfonamide Allergy Swelling Verified 08/25/24 23:48 Antibiotics) sulfamethoxazole Allergy Swelling Verified 08/25/24 23:48 [From Bactrim] trimethoprim [From Bactrim] Allergy Swelling Verified 08/25/24 23:48 zinc Allergy Unknown Verified 08/25/24 23:48 Review of Systems ROS Statement: Those systems with pertinent positive or pertinent negative responses have been documented in the HPI. ROS Other: All systems not noted in ROS Statement are negative. 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 Date of last positivie culture/infection: 2005 MDRO Source:: leg Past Surgical History: Hernia Repair Additional Past Surgical History / Comment(s): forehead reconstruction for head lac as child, VNS implant Past Anesthesia/Blood Transfusion Reactions: No Reported Reaction Past Psychological History: Bipolar, Depression, PTSD, Schizoaffective Disorder Smoking Status: Former smoker Past Alcohol Use History: Occasional Past Drug Use History: Marijuana - Past Family History Father Family Medical History: Cancer Additional Family Medical History / Comment(s): ADOPTED-NOT TOTALLY SURE OF HHX Mother Family Medical History: Cancer Additional Family Medical History / Comment(s): ADOPTED-NOT TOTALLY SURE OF HHX General Exam Limitations: altered mental status General appearance: alert, in no apparent distress Head exam: Present: atraumatic, normocephalic, normal inspection Eye exam: Present: normal appearance, PERRL, EOMI. Absent: scleral icterus, conjunctival injection, periorbital swelling ENT exam: Present: normal exam, mucous membranes moist Neck exam: Present: normal inspection. Absent: tenderness, meningismus, lymphadenopathy Respiratory exam: Present: normal lung sounds bilaterally. Absent: respiratory distress, wheezes, rales, rhonchi, stridor Cardiovascular Exam: Present: regular rate, normal rhythm, normal heart sounds. Absent: systolic murmur, diastolic murmur, rubs, gallop, clicks GI/Abdominal exam: Present: soft, normal bowel sounds. Absent: distended, tenderness, guarding, rebound, rigid Extremities exam: Present: normal inspection, full ROM, normal capillary refill. Absent: tenderness, pedal edema, joint swelling, calf tenderness Back exam: Present: normal inspection Neurological exam: Present: alert, oriented X3, CN II-XII intact Psychiatric exam: Present: normal affect, normal mood Skin exam: Present: warm, dry, intact, normal color. Absent: rash Course Vital Signs 09/20/24 02:00 Temperature 97.9 F Pulse Rate 103 H Respiratory 18 Rate Blood Pressure 131/79 O2 Sat by Pulse 94 L Oximetry - Reevaluation(s) Reevaluation #1: 09/20/24 02:17 Medical records reviewed Reevaluation #2: 09/20/24 02:52 No recurrent seizure activity Reevaluation #3: 09/20/24 02:52 Patient informed of results and questions answered while Reevaluation #4: Was pt. sent in by a medical professional or institution ([facility], PLASTIC BOAT PATCHER, urgent care, hospital, or skilled nursing...) When possible be specific @ -no Did you speak to anyone other than the patient for history (EMS, parent, family, police, friend...)? What history was obtained from this source @ -no Did you review nursing and triage notes (agree or disagree)? Why? @ -agree Are old charts reviewed (outside hosp., previous admission, EMS record, old EKG, old radiological studies, urgent care reports/EKG's, skilled nursing records)? Report findings @ -yes Differential Diagnosis (chest pain, altered mental status, abdominal pain women, abdominal pain men, vaginal bleeding, weakness, fever, dyspnea, syncope, headache, dizziness, GI bleed, back pain, seizure, CVA, palpatations, mental health, musculoskeletal)? @ -prior EKG interpreted by me (3pts min.). @ -yes X-rays interpreted by me (1pt min.). @ -yes negative for acute disease CT interpreted by me (1pt min.). @ -no U/S interpreted by me (1pt. min.). @ -no What testing was considered but not performed or refused? (CT, X-rays, U/S, labs)? Why? @ -none What meds were considered but not given or refused? Why? @ -none Did you discuss the management of the patient with other professionals (professionals i.e. [employer] Chapman, PLASTIC BOAT PATCHER, lab, RT, psych nurse, social services analyst, fire support man, teacher, campus security officer, dependency case manager)? Give summary @ -no Was smoking cessation discussed for >3mins.? @ -no Was critical care preformed (if so, how long)? @ -no Were there social determinants of health that impacted care today? How? (Homelessness, low income, unemployed, alcoholism, drug addiction, transportation, low edu. Level, literacy, decrease access to med. care, fpc, rehab)? @ -none Was there de-escalation of care discussed even if they declined (Discuss DNR or withdrawal of care, Hospice)? DNR status @ -no What co-morbidities impacted this encounter? (DM, HTN, Smoking, COPD, CAD, Cancer, CVA, ARF, Chemo, Hep., AIDS, mental health diagnosis, sleep apnea, morbid obesity)? @ -none Was patient admitted / discharged? Hospital course, mention meds given and route, prescriptions, significant lab abnormalities, going to OR and other pertinent info. @ - Undiagnosed new problem with uncertain prognosis? @ -no Drug Therapy requiring intensive monitoring for toxicity (Heparin, Nitro, Insulin, Cardizem)? @ -no Were any procedures done? @ -no Diagnosis/symptom? @ - Acute, or Chronic, or Acute on Chronic? @ -Acute Uncomplicated (without systemic symptoms) or Complicated (systemic symptoms)? @ -Complicated Side effects of treatment? @ -no Exacerbation, Progression, or Severe Exacerbation? @ -exacerbation Poses a threat to life or bodily function? How? (Chest pain, USA, VT, pneumonia, PE, COPD, DKA, ARF, appy, cholecystitis, CVA, Diverticulitis, Homicidal, Suicidal, threat to staff... and all critical care pts) @ -yes Reevaluation #5: Differential Seizure: Recurrent seizure disorder, febrile seizure, alcohol withdrawal, stimulants, meningitis, encephalitis, intercranial hemorrhage, intracranial tumor, stroke, eclampsia, thyrotoxicosis, hypocalcemia, hyponatremia, hypernatremia, hypomagnesemia, psychogenic, this is not meant to be an all-inclusive list. Medical Decision Making - Medical Decision Making 34 male to the ER for evaluation of recurrent seizure activity. Patient has prolonged postictal here in the ER now patient currently awake, known to this emergency department for seizure type symptoms no acute distress and can be discharged home - Lab Data Lab Results 09/20/24 Range/Units 02:06 POC Glucose (mg/dL) 138 H (70-110) mg/dL POC Glu Bag Shaker ID Ashlie Rojas Disposition Clinical Impression: Recurrent seizures Condition: Fair Instructions (If sedation given, give patient instructions): Recurrent Seizures in Adults (ED) Is patient prescribed a controlled substance at d/c from ED?: No Referrals: Marycarmen Gaston MD [Primary Care Provider] - 1-2 days Time of Disposition: 03:00
[2024-09-20 02:07] LABS: Glucose,Whole Blood 138 mg/dL (70-110)
[2024-09-20 04:42] VITALS: BP 103/65; PULSE 89; RESP 16; TEMP 97.8
== END 2024-09-20 04:42 ==
LOC: EC 01:56
DX: G40.909 Epilepsy, unspecified, not intractable, without status epilepticus (principal); Z87.891 Personal history of nicotine dependence; Z88.8 Allergy status to other drugs, medicaments and biological substances; Z88.1 Allergy status to other antibiotic agents; Z88.2 Allergy status to sulfonamides
CPT/HCPCS: 36415; 99284

== ENCOUNTER 2024-09-27 20:26 | Emergency (ER) | payer OTHER ==
[2024-09-27 20:33] VITALS: BP 136/85; RESP 18
[2024-09-27] MEDS: diazePAM 5 MG TAB PO STA (20:45)
--- NOTE | 2024-09-27 20:47 | ED ---
Seizure HPI - General Chief Complaint: Seizure Stated Complaint: Seizure Time Seen by Provider: 09/27/24 20:28 Source: patient, EMS, RN notes reviewed Mode of arrival: EMS Limitations: no limitations - History of Present Illness Initial Comments: 34-year-old male presents emergency department with chief complaint of seizure. Patient has a history of seizures patient seizure was with the significant other states much more shaky. Patient denies any tongue lacerations no tongue biting. He has not missed any doses of medication. Patient states he has frequent seizures. Patient denies any chest pain shortness of breath no focal weakness. Patient states he sees Dr. Coleman. - Related Data Home Medications Medication Instructions Recorded Confirmed Loratadine [Claritin] 10 mg PO DAILY 01/28/18 08/09/24 Albuterol Sulfate [Albuterol 2 puff INHALATION RT-Q6H PRN 08/05/23 08/09/24 Sulfate Hfa] Cholecalciferol (Vitamin D3) 50 mcg PO DAILY 08/05/23 08/09/24 [Vitamin D3 (50 Mcg = 2000 Iu)] Midazolam [Nayzilam] 1 spray NASAL ONCE PRN 01/05/24 08/09/24 lisinopriL [Zestril] 5 mg PO DAILY 01/05/24 08/09/24 Fluticasone Propion/Salmeterol 2 puff INHALATION RT-BID 07/21/24 08/09/24 [Advair Hfa 230-21 Mcg Inhaler] amLODIPine [Norvasc] 5 mg PO DAILY 07/21/24 08/09/24 hydroCHLOROthiazide [Hydrodiuril] 25 mg PO DAILY 07/21/24 08/09/24 Previous Rx's Medication Instructions Recorded ARIPiprazole [Abilify] 15 mg PO HS #30 tab 07/22/24 Acetaminophen Tab [Tylenol] 650 mg PO Q6HR PRN tab 07/22/24 Brivaracetam [Briviact] 100 mg PO BID 30 Days #60 tab 07/22/24 Allergies Allergy/AdvReac Type Severity Reaction Status Date / Time diphenhydramine Allergy Confusion Verified 09/27/24 20:33 [From Benadryl] Sulfa (Sulfonamide Allergy Swelling Verified 09/27/24 20:33 Antibiotics) sulfamethoxazole Allergy Swelling Verified 09/27/24 20:33 [From Bactrim] trimethoprim [From Bactrim] Allergy Swelling Verified 09/27/24 20:33 Review of Systems ROS Statement: Those systems with pertinent positive or pertinent negative responses have been documented in the HPI. ROS Other: All systems not noted in ROS Statement are negative. 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 Date of last positivie culture/infection: 2005 MDRO Source:: leg Past Surgical History: Hernia Repair Additional Past Surgical History / Comment(s): forehead reconstruction for head lac as child, VNS implant Past Anesthesia/Blood Transfusion Reactions: No Reported Reaction Past Psychological History: Bipolar, Depression, PTSD, Schizoaffective Disorder Smoking Status: Former smoker Past Alcohol Use History: Occasional Past Drug Use History: Marijuana - Past Family History Father Family Medical History: Cancer Additional Family Medical History / Comment(s): ADOPTED-NOT TOTALLY SURE OF HHX Mother Family Medical History: Cancer Additional Family Medical History / Comment(s): ADOPTED-NOT TOTALLY SURE OF HHX General Exam Limitations: no limitations General appearance: alert, in no apparent distress Head exam: Present: atraumatic, normocephalic, normal inspection Eye exam: Present: normal appearance, PERRL, EOMI. Absent: scleral icterus, conjunctival injection, periorbital swelling ENT exam: Present: normal exam, mucous membranes moist Neck exam: Present: normal inspection, full ROM. Absent: tenderness, meningismus, lymphadenopathy Respiratory exam: Present: normal lung sounds bilaterally. Absent: respiratory distress, wheezes, rales, rhonchi, stridor Cardiovascular Exam: Present: regular rate, normal rhythm, normal heart sounds. Absent: systolic murmur, diastolic murmur, rubs, gallop, clicks Back exam: Present: full ROM. Absent: tenderness Neurological exam: Present: alert, oriented X3, CN II-XII intact, reflexes normal. Absent: motor sensory deficit Skin exam: Present: warm, dry, intact, normal color. Absent: rash Course Vital Signs 09/27/24 20:28 Temperature 98.3 F Pulse Rate 96 Respiratory 18 Rate Blood Pressure 136/85 O2 Sat by Pulse 99 Oximetry Medical Decision Making - Medical Decision Making Was pt. sent in by a medical professional or institution (, [facility], PROFESSOR OF CHEMICAL ENGINEERING, urgent care, hospital, or [facility]...) When possible be specific @ -No Did you speak to anyone other than the patient for history (EMS, parent, family, police, friend...)? What history was obtained from this source @ -No Did you review nursing and triage notes (agree or disagree)? Why? @ -I reviewed and agree with nursing and triage notes Were old charts reviewed (outside hosp., previous admission, EMS record, old EKG, old radiological studies, urgent care reports/EKG's, [facility] records)? Report findings @ -No old charts were reviewed Differential Diagnosis (chest pain, altered mental status, abdominal pain women, abdominal pain men, vaginal bleeding, weakness, fever, dyspnea, syncope, headache, dizziness, GI bleed, back pain, seizure, CVA, palpatations, mental health, musculoskeletal)? @ -Differential Seizure: Recurrent seizure disorder, febrile seizure, alcohol withdrawal, stimulants, meningitis, encephalitis, intercranial hemorrhage, intracranial tumor, stroke, eclampsia, thyrotoxicosis, hypocalcemia, hyponatremia, hypernatremia, hypomagnesemia, psychogenic, this is not meant to be an all-inclusive list. EKG interpreted by me (3pts min.). @ -As above X-rays interpreted by me (1pt min.). @ -None done CT interpreted by me (1pt min.). @ -None done U/S interpreted by me (1pt. min.). @ -None done What testing was considered but not performed or refused? (CT, X-rays, U/S, labs)? Why? @ -None What meds were considered but not given or refused? Why? @ -None Did you discuss the management of the patient with other professionals (professionals i.e. , [facility], PROFESSOR OF CHEMICAL ENGINEERING, lab, RT, psych nurse, social work program coordinator, cleat blanker, teacher, loan service officer, case mgr)? Give summary @ -No Was smoking cessation discussed for >3mins.? @ -No Was critical care preformed (if so, how long)? @ -No Were there social determinants of health that impacted care today? How? (Homelessness, low income, unemployed, alcoholism, drug addiction, transportation, low edu. Level, literacy, decrease access to med. care, correction, rehab)? @ -No Was there de-escalation of care discussed even if they declined (Discuss DNR or withdrawal of care, Hospice)? DNR status @ -No What co-morbidities impacted this encounter? (DM, HTN, Smoking, COPD, CAD, Cancer, CVA, ARF, Chemo, Hep., AIDS, mental health diagnosis, sleep apnea, morbid obesity)? @ -Seizure history Was patient admitted / discharged? Hospital course, mention meds given and route, prescriptions, significant lab abnormalities, going to OR and other pertinent info. @ -Discharge patient is well-appearing vitals are stable. Patient has recurrent seizures. Patient states he has not missed any of his doses of medication no complaints otherwise. Patient be discharged in stable condition with follow-up with neurology return parameters cussed. Undiagnosed new problem with uncertain prognosis? @ -No Drug Therapy requiring intensive monitoring for toxicity (Heparin, Nitro, Insulin, Cardizem)? @ -No Were any procedures done? @ -No Diagnosis/symptom? @ -Recurrent seizures Acute, or Chronic, or Acute on Chronic? @ -Acute Uncomplicated (without systemic symptoms) or Complicated (systemic symptoms)? @ -Complicated Side effects of treatment? @ -No Exacerbation, Progression, or Severe Exacerbation? @ -No Poses a threat to life or bodily function? How? (Chest pain, USA, MD, pneumonia, PE, COPD, DKA, ARF, appy, cholecystitis, CVA, Diverticulitis, Homicidal, Suicidal, threat to staff... and all critical care pts) @ -No - EKG Data -: EKG Interpreted by Me EKG Comments: EKG performed at 20: 48 sinus rhythm first-degree block rate of 86 MA 223 QRS 106 QT/QTc 355/399 Disposition Clinical Impression: Recurrent seizures Disposition: HOME SELF-CARE Condition: Stable Instructions (If sedation given, give patient instructions): Recurrent Seizures in Adults (ED) Additional Instructions: Please return to the Emergency Department if symptoms worsen or any other co ncerns. Is patient prescribed a controlled substance at d/c from ED?: No Referrals: Marycarmen Gaston MD [Primary Care Provider] - 1-2 days Time of Disposition: 20:46
[2024-09-27 21:26] VITALS: PULSE 88; TEMP 98.6
== END 2024-09-27 21:26 | disposition home or self-care (01) ==
LOC: EC 20:26
DX: G40.909 Epilepsy, unspecified, not intractable, without status epilepticus (principal); I44.0 Atrioventricular block, first degree; Z87.891 Personal history of nicotine dependence; Z88.2 Allergy status to sulfonamides; Z88.1 Allergy status to other antibiotic agents; Z88.8 Allergy status to other drugs, medicaments and biological substances; Z88.9 Allergy status to unspecified drugs, medicaments and biological substances
CPT/HCPCS: 93005; 99284

== ENCOUNTER 2024-10-02 23:37 | Emergency (ER) | payer OTHER ==
[2024-10-02 23:42] VITALS: RESP 16
[2024-10-02 23:53] LABS: Glucose,Whole Blood 152 mg/dL (70-110)
[2024-10-03] MEDS: SODIUM CHLORIDE 0.9% 1,000 ML IV STA (00:36)
[2024-10-03 01:12] LABS: Basophils # (A) 0.04 10*3/uL (0.00-0.10); Basophils % (A) 0.5 %; Eosinophils # (A) 0.14 10*3/uL (0.04-0.35); Eosinophils % (A) 1.7 %; HCT 44.0 % (39.6-50.0); HGB 15.3 g/dL (13.0-17.0); Lymphocytes # (A) 1.97 10*3/uL (0.90-5.00); Lymphocytes % (A) 23.2 %; MCH 29.0 pg (27.0-32.0); MCHC 34.8 g/dL (32.0-37.0); MCV 83.5 fL (80.0-97.0); Monocytes # (A) 0.74 10*3/uL (0.20-1.00); Monocytes % (A) 8.7 %; Neutrophils # (A) 5.57 10*3/uL (1.80-7.70); Neutrophils % (A) 65.7 %; Platelet Count 248 10*3/uL (140-440); RBC 5.27 10*6/uL (4.40-5.60); RDW 12.5 % (11.5-14.5); WBC 8.48 10*3/uL (4.50-10.00)
[2024-10-03 01:24] LABS: ALT 63 U/L (4-49); AST 41 U/L (17-59); African American GFR (CKD) >90 (>60 ml/min/1.73 sqM); Albumin 4.6 g/dL (3.5-5.0); Alkaline Phosphatase 58 U/L (38-126); Anion Gap 11 mmol/L; Blood Urea Nitrogen 12 mg/dL (9-20); Calcium 9.7 mg/dL (8.4-10.2); Carbon Dioxide 28 mmol/L (22-30); Chloride 99 mmol/L (98-107); Glucose 138 mg/dL (74-99); Magnesium 2.2 mg/dL (1.6-2.3); Non-African American GFR(CKD) >90 (>60 ml/min/1.73 sqM); Potassium 3.2 mmol/L (3.5-5.1); Sodium 138 mmol/L (137-145); Total Protein 7.3 g/dL (6.3-8.2)
--- NOTE | 2024-10-03 02:03 | ED ---
Seizure HPI - General Chief Complaint: Seizure Stated Complaint: Seizure Time Seen by Provider: 10/02/24 23:49 Source: EMS Mode of arrival: EMS - History of Present Illness Initial Comments: 34-year-old male with history of seizures presenting for evaluation after multiple seizures occurred this evening. Patient is accompanied by his niece. On initial examination the patient is postictal and cannot respond to me or follow commands. Few minutes later the patient is awake and alert. He is oriented x 3 and able to follow all commands. He denies any complaints at this time. No headache, tongue laceration, body pain, nausea, vomiting, chest pain, difficulty breathing. Reports he has been taking all medications as prescribed. - Related Data Home Medications Medication Instructions Recorded Confirmed Loratadine [Claritin] 10 mg PO DAILY 01/28/18 08/09/24 Albuterol Sulfate [Albuterol 2 puff INHALATION RT-Q6H PRN 08/05/23 08/09/24 Sulfate Hfa] Cholecalciferol (Vitamin D3) 50 mcg PO DAILY 08/05/23 08/09/24 [Vitamin D3 (50 Mcg = 2000 Iu)] Midazolam [Nayzilam] 1 spray NASAL ONCE PRN 01/05/24 08/09/24 lisinopriL [Zestril] 5 mg PO DAILY 01/05/24 08/09/24 Fluticasone Propion/Salmeterol 2 puff INHALATION RT-BID 07/21/24 08/09/24 [Advair Hfa 230-21 Mcg Inhaler] amLODIPine [Norvasc] 5 mg PO DAILY 07/21/24 08/09/24 hydroCHLOROthiazide [Hydrodiuril] 25 mg PO DAILY 07/21/24 08/09/24 Previous Rx's Medication Instructions Recorded ARIPiprazole [Abilify] 15 mg PO HS #30 tab 07/22/24 Acetaminophen Tab [Tylenol] 650 mg PO Q6HR PRN tab 07/22/24 Brivaracetam [Briviact] 100 mg PO BID 30 Days #60 tab 07/22/24 Allergies Allergy/AdvReac Type Severity Reaction Status Date / Time diphenhydramine Allergy Confusion Verified 10/02/24 23:42 [From Benadryl] Sulfa (Sulfonamide Allergy Swelling Verified 10/02/24 23:42 Antibiotics) sulfamethoxazole Allergy Swelling Verified 10/02/24 23:42 [From Bactrim] trimethoprim [From Bactrim] Allergy Swelling Verified 10/02/24 23:42 Review of Systems ROS Statement: Those systems with pertinent positive or pertinent negative responses have been documented in the HPI. ROS Other: All systems not noted in ROS Statement are negative. 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 Date of last positivie culture/infection: 2005 MDRO Source:: leg Past Surgical History: Hernia Repair Additional Past Surgical History / Comment(s): forehead reconstruction for head lac as child, VNS implant Past Anesthesia/Blood Transfusion Reactions: No Reported Reaction Past Psychological History: Bipolar, Depression, PTSD, Schizoaffective Disorder Smoking Status: Former smoker Past Alcohol Use History: Occasional Past Drug Use History: Marijuana - Past Family History Father Family Medical History: Cancer Additional Family Medical History / Comment(s): ADOPTED-NOT TOTALLY SURE OF HHX Mother Family Medical History: Cancer Additional Family Medical History / Comment(s): ADOPTED-NOT TOTALLY SURE OF HHX General Exam General appearance: alert, in no apparent distress Head exam: Present: atraumatic, normocephalic, normal inspection Eye exam: Present: normal appearance, PERRL, EOMI. Absent: periorbital swelling Pupils: Present: normal accommodation Neck exam: Present: normal inspection. Absent: meningismus Respiratory exam: Present: normal lung sounds bilaterally. Absent: respiratory distress, wheezes, rales, rhonchi, stridor Cardiovascular Exam: Present: regular rate, normal rhythm, normal heart sounds. Absent: systolic murmur, diastolic murmur, rubs, gallop, clicks Neurological exam: Present: alert, oriented X3 Expanded Eye Response: (4) open spontaneously Motor Response: (6) obeys commands Verbal Response: (5) oriented [place] Total: 15 Psychiatric exam: Present: normal affect, normal mood Skin exam: Present: warm, dry, normal color Course Vital Signs 10/02/24 23:39 Temperature 98.1 F Pulse Rate 94 Respiratory 16 Rate Blood Pressure 137/92 O2 Sat by Pulse 95 Oximetry Medical Decision Making - Medical Decision Making Was pt. sent in by a medical professional or institution ([employer] [employer], [employer], urgent care, hospital, or intermediate...) When possible be specific @ -No Did you speak to anyone other than the patient for history (EMS, parent, family, police, friend...)? What history was obtained from this source @ -Niece Did you review nursing and triage notes (agree or disagree)? Why? @ -I reviewed and agree with nursing and triage notes Were old charts reviewed (outside hosp., previous admission, EMS record, old EKG, old radiological studies, urgent care reports/EKG's, intermediate records)? Report findings @ -No old charts were reviewed Differential Diagnosis (chest pain, altered mental status, abdominal pain women, abdominal pain men, vaginal bleeding, weakness, fever, dyspnea, syncope, headache, dizziness, GI bleed, back pain, seizure, CVA, palpatations, mental health, musculoskeletal)? @ -MDM Differential Seizure: Recurrent seizure disorder, febrile seizure, alcohol withdrawal, stimulants, meningitis, encephalitis, intercranial hemorrhage, intracranial tumor, stroke, eclampsia, thyrotoxicosis, hypocalcemia, hyponatremia, hypernatremia, hypomagnesemia, psychogenic… this is not meant to be an all-inclusive list EKG interpreted by me (3pts min.). @ -EKG shows sinus rhythm ventricular rate 93. SC interval 191 QRS 113 QT 366 QTc 416 X-rays interpreted by me (1pt min.). @ -None done CT interpreted by me (1pt min.). @ -None done U/S interpreted by me (1pt. min.). @ -None done What testing was considered but not performed or refused? (CT, X-rays, U/S, labs)? Why? @ -None What meds were considered but not given or refused? Why? @ -None Did you discuss the management of the patient with other professionals (professionals i.e. [employer], [employer], lab, RT, psych nurse, social media coordinator, log deckman, teacher, loan servicing officer, gearcase assembler)? Give summary @ -No Was smoking cessation discussed for >3mins.? @ -No Was critical care preformed (if so, how long)? @ -No Were there social determinants of health that impacted care today? How? (Homelessness, low income, unemployed, alcoholism, drug addiction, transportation, low edu. Level, literacy, decrease access to med. care, alf, rehab)? @ -No Was there de-escalation of care discussed even if they declined (Discuss DNR or withdrawal of care, Hospice)? DNR status @ -No What co-morbidities impacted this encounter? (DM, HTN, Smoking, COPD, CAD, Cancer, CVA, ARF, Chemo, Hep., AIDS, mental health diagnosis, sleep apnea, morbid obesity)? @ -None Was patient admitted / discharged? Hospital course, mention meds given and route, prescriptions, significant lab abnormalities, going to OR and other pertinent info. @ -44-year-old male with history of seizure disorder presenting for evaluation after multiple seizures. Patient is alert and oriented x 3 and able to follow commands and answer questions. Patient did not bite his tongue. No diffuse muscle pain. Lactic acid WNL. CBC unremarkable. Potassium 3.2, patient received oral replacement. He is educated on today's findings. Follow-up with neurologist. Follow-up with PCP. Report back to ER with any new or worsening symptoms. Discussed return parameters and answered all questions. Patient conveyed verbal understanding and agreed to the plan. I discussed this case in detail with my attending Dr. Covarrubias Undiagnosed new problem with uncertain prognosis? @ -No Drug Therapy requiring intensive monitoring for toxicity (Heparin, Nitro, In sulin, Cardizem)? @ -No Were any procedures done? @ -No Diagnosis/symptom? @ -Seizure disorder Acute, or Chronic, or Acute on Chronic? @ -Acute on chronic Uncomplicated (without systemic symptoms) or Complicated (systemic symptoms)? @ -Complicated Side effects of treatment? @ -No Exacerbation, Progression, or Severe Exacerbation? @ -No Poses a threat to life or bodily function? How? (Chest pain, [place], [place], pneumonia, PE, COPD, DKA, ARF, appy, cholecystitis, CVA, Diverticulitis, Homicidal, S uicidal, threat to staff... and all critical care pts) @ -Unlikely at this time - Lab Data Result diagrams: 10/03/24 00:30 10/03/24 00:30 Lab Results 10/02/24 10/03/24 10/03/24 Range/Units 23:52 00:30 00:30 WBC 8.48 (4.50-10.00) 10*3/uL RBC 5.27 (4.40-5.60) 10*6/uL Hgb 15.3 (13.0-17.0) g/dL Hct 44.0 (39.6-50.0) % MCV 83.5 (80.0-97.0) fL MCH 29.0 (27.0-32.0) pg MCHC 34.8 (32.0-37.0) g/dL Plt Count 248 (140-440) 10*3/uL MPV 9.5 (9.5-12.2) fL Immature Gran % (Auto) 0.2 % Neutrophils % 65.7 % Lymphocytes % 23.2 % Monocytes % 8.7 % Eosinophils % 1.7 % Basophils % 0.5 % Immature Gran # 0.02 (0.00-0.04) 10*3/uL Neutrophils # 5.57 (1.80-7.70) 10*3/uL Lymphocytes # 1.97 (0.90-5.00) 10*3/uL Monocytes # 0.74 (0.20-1.00) 10*3/uL Eosinophils # 0.14 (0.04-0.35) 10*3/uL Basophils # 0.04 (0.00-0.10) 10*3/uL Sodium 138 (137-145) mmol/L Potassium 3.2 L (3.5-5.1) mmol/L Chloride 99 (98-107) mmol/L Carbon Dioxide 28 (22-30) mmol/L Anion Gap 11 mmol/L BUN 12 (9-20) mg/dL Creatinine 0.77 (0.66-1.25) mg/dL Est GFR (CKD-EPI)AfAm >90 (>60 ml/min/1.73 sqM) Est GFR (CKD-EPI)NonAf >90 (>60 ml/min/1.73 sqM) Glucose 138 H (74-99) mg/dL POC Glucose (mg/dL) 152 H (70-110) mg/dL POC Glu Database Architect ID Ashlie Bob Plasma Lactic Acid Jorje (0.7-2.0) mmol/L Calcium 9.7 (8.4-10.2) mg/dL Magnesium 2.2 (1.6-2.3) mg/dL Total Bilirubin 0.5 (0.2-1.3) mg/dL AST 41 (17-59) U/L ALT 63 H (4-49) U/L Alkaline Phosphatase 58 (38-126) U/L Total Protein 7.3 (6.3-8.2) g/dL Albumin 4.6 (3.5-5.0) g/dL 10/03/24 Range/Units 00:30 WBC (4.50-10.00) 10*3/uL RBC (4.40-5.60) 10*6/uL Hgb (13.0-17.0) g/dL Hct (39.6-50.0) % MCV (80.0-97.0) fL MCH (27.0-32.0) pg MCHC (32.0-37.0) g/dL Plt Count (140-440) 10*3/uL MPV (9.5-12.2) fL Immature Gran % (Auto) % Neutrophils % % Lymphocytes % % Monocytes % % Eosinophils % % Basophils % % Immature Gran # (0.00-0.04) 10*3/uL Neutrophils # (1.80-7.70) 10*3/uL Lymphocytes # (0.90-5.00) 10*3/uL Monocytes # (0.20-1.00) 10*3/uL Eosinophils # (0.04-0.35) 10*3/uL Basophils # (0.00-0.10) 10*3/uL Sodium (137-145) mmol/L Potassium (3.5-5.1) mmol/L Chloride (98-107) mmol/L Carbon Dioxide (22-30) mmol/L Anion Gap mmol/L BUN (9-20) mg/dL Creatinine (0.66-1.25) mg/dL Est GFR (CKD-EPI)AfAm (>60 ml/min/1.73 sqM) Est GFR (CKD-EPI)NonAf (>60 ml/min/1.73 sqM) Glucose (74-99) mg/dL POC Glucose (mg/dL) (70-110) mg/dL POC Glu Database Architect ID Plasma Lactic Acid Jorje 1.4 (0.7-2.0) mmol/L Calcium (8.4-10.2) mg/dL Magnesium (1.6-2.3) mg/dL Total Bilirubin (0.2-1.3) mg/dL AST (17-59) U/L ALT (4-49) U/L Alkaline Phosphatase (38-126) U/L Total Protein (6.3-8.2) g/dL Albumin (3.5-5.0) g/dL Disposition Clinical Impression: Recurrent seizures Disposition: HOME SELF-CARE Condition: Good Instructions (If sedation given, give patient instructions): Recurrent Seizures in Adults (ED) Additional Instructions: Follow-up with PCP and neurologist. Report back to ER with any new or worsening symptoms. According to [place] law he must be seizure-free for [address], follow-up with your neurologist for clearance. Is patient prescribed a controlled substance at d/c from ED?: No Referrals: Marycarmen Gaston MD [Primary Care Provider] - 1-2 days Time of Disposition: 02:03
[2024-10-03 02:05] VITALS: BP 120/72; PULSE 90; TEMP 97.7
[2024-10-03] MEDS: POTASSIUM CHLORIDE ER 20 MEQ TAB.ER PO STA (02:09)
== END 2024-10-03 02:17 | disposition home or self-care (01) ==
LOC: EC 23:37
DX: G40.909 Epilepsy, unspecified, not intractable, without status epilepticus (principal); Z87.891 Personal history of nicotine dependence; Z88.1 Allergy status to other antibiotic agents; Z88.2 Allergy status to sulfonamides; Z88.8 Allergy status to other drugs, medicaments and biological substances
CPT/HCPCS: 36415; 80053; 83605; 83735; 85025; 93005; 96360; 99285